=== PATIENT | male | born 1935 | race Caucasian/White ===

== ENCOUNTER → 2017-11-28 10:04 | Outpatient (CLI) | payer MEDICARE, OTHER, SELFPAY ==
[2017-11-28 13:33] LABS: Basophils Percent Auto 0.9 % (0-2); Eosinophils Percent Auto 2.9 % (2-4); Hemoglobin 12.7 g/dL (13.5-17.5); Lymphocytes Percent Auto 28.7 % (25-40); Mean Corpuscular HGB Conc 34.4 % (30-36); Mean Corpuscular Hemoglobin 38.4 PG (26-34); Mean Corpuscular Volume 111.6 fL (80-100); Monocytes Percent Auto 14.9 % (3-14); Neutrophils Absolute Auto 2800 /uL (3000-5900); Neutrophils Percent Auto 52.6 % (50-75); Platelet Count 270 X10^3/uL (150-400); Red Blood Cell Count 3.32 X10^6/uL (4.5-5.9); Red Cell Distribution Width 15.2 % (11.6-14.8); White Blood Cell Count 5.4 X10^3/uL (4.5-11.0)
[2017-11-28 13:35] LABS: Add Manual Diff / Slide Review SLIDE REVIEW; Prothrombin Time 10.9 SECONDS (10.1-12.7)
[2017-11-28 13:40] LABS: Alanine Aminotransferase 29 IU/L (21-72); Albumin 4.4 g/dL (3.5-5.0); Albumin Globulin Ratio 1.3 (1.0-2.8); Alkaline Phosphatase 87 U/L (38-126); Aspartate Aminotransferase 32 IU/L (17-59); BUN Creatinine Ratio 23.6 (6-22); Bilirubin Total 0.5 mg/dL (0.2-1.3); Calcium 9.8 mg/dL (8.4-10.2); Estimated Glomerular Filt Rate > 60.0 mL/min (>60); Globulin 3.4 g/dL (1.7-4.1); Glucose 100 mg/dL (80-110); HEMOLYSIS < 15 (0-50); Lipase 81 U/L (23-300); Potassium 4.4 mmol/L (3.4-5.1); Sodium 140 mmol/L (137-145); Total Protein 7.8 g/dL (6.3-8.2)
[2017-11-28 14:03] LABS: Macrocytosis 1+
== END ==
PROVIDERS: PCP Family Medicine; Visit Provider Family Medicine
DX: I10 Essential (primary) hypertension (principal); E78.5 Hyperlipidemia, unspecified; D53.9 Nutritional anemia, unspecified; J43.2 Centrilobular emphysema; R10.11 Right upper quadrant pain
CPT/HCPCS: 36415; 80053; 83690; 85025; 85610

== ENCOUNTER → 2018-10-15 08:14 | Outpatient (CLI) | payer MEDICARE, OTHER, SELFPAY ==
--- NOTE | 2018-10-15 09:26 | PM.TREADMILL ---
Cardiac Stress Test Report Referral & Results Date Patient Seen: 10/15/18 Requesting provider: Navya Rodriguez Indication: Chest pain Rest ECG: Unremarkable Procedure Note: Today following both written and verbal informed consent the patient was exercised according to a standard Damián protocol patient went for a total of 5 minutes 20 seconds achieving a maximum heart rate of 106 maximum systolic blood pressure of 160 to. This is approximately 7.0 METS. Exercise was terminated at this point because of severe dyspnea and ability the patient to continue. Patient was also given Cardiolite through a previously started Hep-Lock IV by the nuclear equipment research engineer approximately 1 minute prior to the cessation of exercise. Patient failed to meet heart rate targets. Blood pressure did rise but also somewhat blunted. No ST-T segment changes Occasional PAC and PVC Patient with severe dyspnea consistent with his diagnosis of COPD Functional aerobic impairment actually rated 0 on the sedentary scale Impression: No ECG evidence of ischemia in a patient with significant pulmonary disease Please see perfusion imaging as well Please note: Actual ECG tracings can be found in the PACS system.
--- NOTE | 2018-10-16 16:02 | DI.NM.S_ITS ---
DATE OF SERVICE: 10/15/2018 PROCEDURE: Exercise perfusion study. INDICATIONS: Chest pain, shortness of breath, underlying hypertension, hyperlipidemia, PAD. RADIOPHARMACEUTICAL: 24.7 mCi technetium-99m Myoview IV was injected at stress and 26.3 mCi technetium-99m Myoview IV was injected at rest. CARDIAC STRESS: Patient walked on Damián protocol for about 5 minutes 20 seconds and achieved peak heart rate of 106, which was 76% of target heart rate. He was unable to continue on treadmill. Had dyspnea. Achieved 7 METs of workload. Functional aerobic impairment +10%. Baseline s EKG revealed sinus rhythm. During stress, there was some nonspecific upsloping ST depression. Occasional PVCs and PACs seen. No significant sustained arrhythmias. RAW DATA: There is increased subdiaphragmatic activity. GATED STUDY: Resting LV ejection fraction 68% and stress LV ejection fraction 74% without any obvious wall motion abnormalities. Resting end-diastolic volume is 129 mL. No transient ischemic dilatation. TID ratio is 0.92. Lung/heart ratio is 0.34, which is within normal limits. MYOCARDIAL PERFUSION SCAN: Stress supine, resting supine, and stress prone images were compared to each other. Stress supine and resting supine images revealed moderate-sized moderately decreased perfusion of inferior wall, inferior apex which got significantly improved during prone images. However, prone images remain to have mildly decreased perfusion of inferior apex. I don't see any obvious reversible ischemia CONCLUSION: 1. No obvious reversible ischemia. 2. Diaphragmatic tissue attenuation artifact seen which got significantly improved during prone images. Prone images remain to have mildly decreased perfusion of inferior apex. Inferior wall and inferior apex are moving well. There is a possibility of persistent tissue attenuation artifact as well. During raw images, increased subdiaphragmatic activity seen near the inferior border and inferior apex. Hence, most likely we are dealing with tissue attenuation artifact. 3. Patient has poor exercise tolerance. Functional aerobic impairment +10%. Had significant shortness of breath. He has underlying chronic obstructive pulmonary disease (COPD). He achieved only 76% of target heart rate. 4. It is a submaximal exercise perfusion stress test. Clinical correlation is recommended. If clinical suspicion for coronary artery disease is high, repeat stress test either with pharmacological perfusion study or dobutamine stress echocardiogram. Pola Chambers - [facility]/nimco/ doc#: [id number]/job#: [id number] dd: 10/16/2018 12:36:00 dt: 10/16/2018 15:50:00 DICTATING MD/COPIES TO: Sonya Ennis MD COPIES MNE: SARIKA
== END ==
PROVIDERS: Family Provider Family Medicine; PCP Family Medicine; Visit Provider Family Medicine
DX: R07.9 Chest pain, unspecified (principal); R06.02 Shortness of breath; J44.9 Chronic obstructive pulmonary disease, unspecified; R06.00 Dyspnea, unspecified; I10 Essential (primary) hypertension
CPT/HCPCS: 78452; 93016; 93017; 93018; A9502

== ENCOUNTER → 2019-02-17 09:42 | Outpatient (CLI) | payer MEDICARE, OTHER, SELFPAY ==
--- NOTE | 2019-02-17 | DI.CT.S_ITS ---
PROCEDURE: CT MASTOID TEMPORAL INDICATIONS: CHOLESTEATOMA COMPARISON: [facility], CT, TEMPORAL/MASTOIDS W/O CONTRAST, 07/03/2017, 8:44. [facility], MR, STROKE PROTOCOL, 07/25/2012, 11:22. [facility], CT, SINUS SCREEN WO CONTRAST, 08/02/2012, 11:22. [facility], CT, HEAD WITHOUT CONTRAST, 04/04/2013, 17:51. TECHNIQUE: Noncontrast 0.6 mm thick direct axial and coronal sections acquired through each temporal bone separately. FINDINGS: Image quality: Excellent. RIGHT: External auditory canal: Canal has a normal appearance. Middle ear: The middle ear structures, including the ossicles and tympanic membrane, appear normal. No abnormal fluid or soft tissue density. Inner ear: Inner ear is normally formed and appears unremarkable. Facial nerve appears normal throughout is course. Mastoids: Mastoid air cells demonstrate at least moderate abnormal fluid. LEFT: External auditory canal: Canal has a normal appearance. Middle ear: Abnormal soft tissue density can be seen within the middle ear cavity, particularly medially. No definite osseous erosion is seen at this time. The left tympanic membrane is retracted. Inner ear: Inner ear is normally formed and appears unremarkable. Facial nerve appears normal throughout its course. Mastoids: Mastoid air cells demonstrate moderate abnormal fluid MISCELLANEOUS: Visualized surrounding bones appear unremarkable. Visualized intracranial structures, including the cerebellopontine angle cisterns, appear normal. IMPRESSION: Abnormal soft tissue density is seen involving the right middle ear cavity, which is consistent with the given history of a cholesteatoma. When compared to 2017, the amount of abnormal soft tissue material within the left middle ear cavity has progressed. Abnormal mastoid air cell fluid can be seen, left worse than right. Dictated by: Abdirahman Alvarenga M.D. on 02/17/2019 at 10:36 Approved by: Abdirahman Alvarenga M.D. on 02/17/2019 at 10:40
== END ==
PROVIDERS: Family Provider Family Medicine; PCP Family Medicine; Visit Provider Otolaryngology
DX: H71.91 Unspecified cholesteatoma, right ear (principal); H71.92 Unspecified cholesteatoma, left ear
CPT/HCPCS: 70480

== ENCOUNTER → 2019-06-25 10:15 | Outpatient (CLI) | payer MEDICARE, OTHER, SELFPAY ==
[2019-06-25 11:04] LABS: Add Manual Diff / Slide Review NO; Basophils Absolute Auto 100 /uL (0-100); Basophils Percent Auto 1.1 % (0-2); Eosinophils Absolute Auto 400 /uL (0-450); Eosinophils Percent Auto 5.9 % (2-4); Hemoglobin 12.2 g/dL (13.5-17.5); Lymphocytes Absolute Auto 2100 /uL (1100-4500); Lymphocytes Percent Auto 31.3 % (25-40); Mean Corpuscular HGB Conc 34.9 % (30-36); Mean Corpuscular Hemoglobin 39.2 PG (26-34); Mean Corpuscular Volume 112.3 fL (80-100); Monocytes Absolute Auto 900 /uL (0-900); Monocytes Percent Auto 13.6 % (3-14); Neutrophils Absolute Auto 3200 /uL (1500-7000); Neutrophils Percent Auto 48.1 % (50-75); Platelet Count 297 X10^3/uL (150-400); Red Blood Cell Count 3.11 X10^6/uL (4.5-5.9); Red Cell Distribution Width 15.1 % (11.6-14.8); White Blood Cell Count 6.6 X10^3/uL (4.5-11.0)
[2019-06-25 11:39] LABS: Alanine Aminotransferase 16 IU/L (<50); Albumin 4.2 g/dL (3.5-5.0); Albumin Globulin Ratio 1.4 (1.0-2.8); Alkaline Phosphatase 83 U/L (38-126); Aspartate Aminotransferase 30 IU/L (17-59); Bilirubin Total 0.7 mg/dL (0.2-1.3); Blood Urea Nitrogen 24 mg/dL (9-20); Calcium 10.1 mg/dL (8.4-10.2); Carbon Dioxide 32 mmol/L (22-32); Chloride 94 mmol/L (98-107); Cholesterol 238 mg/dL (140-199); Estimated Glomerular Filt Rate 58.1 mL/min (>60); Globulin 3.1 g/dL (1.7-4.1); Glucose 97 mg/dL (80-110); HDL Cholesterol 81 mg/dL (40-60); HEMOLYSIS < 15 (0-50); LDL Cholesterol Calculated 144 mg/dL (<100); Potassium 4.4 mmol/L (3.4-5.1); Sodium 133 mmol/L (137-145); Total Protein 7.3 g/dL (6.3-8.2); Triglycerides 64 mg/dL (35-150)
[2019-06-25 12:19] LABS: Macrocytosis 1+
== END ==
PROVIDERS: PCP Family Medicine; Visit Provider Family Medicine
DX: E78.5 Hyperlipidemia, unspecified (principal); D53.9 Nutritional anemia, unspecified; I10 Essential (primary) hypertension
CPT/HCPCS: 36415; 80053; 80061; 85025

== ENCOUNTER → 2019-09-02 16:17 | Outpatient (CLI) | payer MEDICARE, OTHER, SELFPAY | PROVIDERS: PCP Family Medicine; Visit Provider Physician Assistant | DX: S50.319A Abrasion of unspecified elbow, initial encounter (principal) | CPT/HCPCS: 87070; 87075; 87205 ==

== ENCOUNTER → 2019-09-08 13:07 | Outpatient (CLI) | payer MEDICARE, OTHER, SELFPAY ==
--- NOTE | 2019-09-08 13:11 | DI.RAD.S_ITS ---
PROCEDURE: XR CHEST 2V INDICATIONS: cough, shortness of breath, copd TECHNIQUE: 2 views of the chest were acquired. COMPARISON: [facility], , CHEST 2 VIEW, 07/14/2016, 13:41. FINDINGS: Surgical changes and devices: None. Lungs and pleura: There is mild increase in bibasilar scattered ill-defined patchy groundglass opacity since 07/14/16. No definite focal consolidation. No pleural effusions or pneumothorax. Lungs are hyperinflated in keeping with chronic obstructive physiology. Mediastinum: Mediastinal contours are normal. Heart size is normal. Bones and chest wall: No suspicious bony abnormalities. Soft tissues appear unremarkable. IMPRESSION: Interval progression in ill-defined widespread bi-basilar opacities, potentially reflecting early pulmonary edema, atypical or viral pneumonia, however this could be progressive fibrotic change and technically unclear in the absence of more recent prior studies. If there is persistent clinical diagnostic uncertainty, continued surveillance with short interval chest radiographs after treatment is recommended. Hyperinflated lungs in keeping with chronic obstructive physiology. Dictated by: Patrick Romano M.D. on 09/08/2019 at 14:08 Approved by: Patrick Romano M.D. on 09/08/2019 at 14:11
== END ==
PROVIDERS: PCP Family Medicine; Referring Provider Family Medicine; Visit Provider Family Medicine
DX: R05 Cough (principal); J43.2 Centrilobular emphysema; E78.5 Hyperlipidemia, unspecified; J96.00 Acute respiratory failure, unspecified whether with hypoxia or hypercapnia; I10 Essential (primary) hypertension; D53.9 Nutritional anemia, unspecified
CPT/HCPCS: 36415; 71046; 80053; 80061; 84145; 85025

== ENCOUNTER → 2019-09-08 13:43 | Outpatient (CLI) | payer MEDICARE, OTHER, SELFPAY ==
[2019-09-08 15:18] LABS: Add Manual Diff / Slide Review NO; Basophils Absolute Auto 0 /uL (0-100); Basophils Percent Auto 0.2 % (0-2); Eosinophils Absolute Auto 0 /uL (0-450); Eosinophils Percent Auto 0.1 % (2-4); Hematocrit 31.4 % (41-53); Hemoglobin 10.6 g/dL (13.5-17.5); Lymphocytes Absolute Auto 1500 /uL (1100-4500); Lymphocytes Percent Auto 8.7 % (25-40); Mean Corpuscular HGB Conc 33.9 % (30-36); Mean Corpuscular Hemoglobin 38.8 PG (26-34); Mean Corpuscular Volume 114.5 fL (80-100); Monocytes Absolute Auto 2600 /uL (0-900); Neutrophils Absolute Auto 13200 /uL (1500-7000); Platelet Count 296 X10^3/uL (150-400); Red Blood Cell Count 2.74 X10^6/uL (4.5-5.9); Red Cell Distribution Width 14.9 % (11.6-14.8); White Blood Cell Count 17.4 X10^3/uL (4.5-11.0)
[2019-09-08 15:33] LABS: Alanine Aminotransferase 28 IU/L (<50); Albumin 4.3 g/dL (3.5-5.0); Albumin Globulin Ratio 1.2 (1.0-2.8); Alkaline Phosphatase 81 U/L (38-126); Aspartate Aminotransferase 54 IU/L (17-59); BUN Creatinine Ratio 21.3 (6-22); Bilirubin Total 0.6 mg/dL (0.2-1.3); Blood Urea Nitrogen 34 mg/dL (9-20); Calcium 9.8 mg/dL (8.4-10.2); Carbon Dioxide 33 mmol/L (22-32); Chloride 91 mmol/L (98-107); Cholesterol 188 mg/dL (140-199); Estimated Glomerular Filt Rate 41.7 mL/min (>60); Globulin 3.7 g/dL (1.7-4.1); Glucose 127 mg/dL (80-110); HDL Cholesterol 47 mg/dL (40-60); HEMOLYSIS < 15 (0-50); LDL Cholesterol Calculated 119 mg/dL (<100); Potassium 3.5 mmol/L (3.4-5.1); Sodium 134 mmol/L (137-145); Triglycerides 108 mg/dL (35-150)
[2019-09-08 15:39] LABS: Macrocytosis 2+
[2019-09-08 16:07] LABS: Procalcitonin 0.42 ng/mL (<0.5)
== END ==
PROVIDERS: PCP Family Medicine; Referring Provider Family Medicine; Visit Provider Family Medicine
DX: J96.00 Acute respiratory failure, unspecified whether with hypoxia or hypercapnia (principal); J43.2 Centrilobular emphysema; E78.5 Hyperlipidemia, unspecified; D53.9 Nutritional anemia, unspecified; I10 Essential (primary) hypertension
CPT/HCPCS: 36415; 80053; 80061; 84145; 85025

== ENCOUNTER 2019-09-10 14:55 | Inpatient (IN) | payer MEDICARE, OTHER, SELFPAY ==
[2019-09-10 15:14] VITALS: BMI 25.6
--- NOTE | 2019-09-10 15:25 | PM.HP.1 ---
History of Present Illness History of Present Illness Date Patient Seen: 09/10/19 Time Patient Seen: 15:25 Chief complaint: COPD Exacerbation and Pneumonia Narrative: Patient is an 83 yo male with long standing tobacco use and COPD who presented to clinic two days ago with worsening respiratory status. Attempt was made to treat him outpatient with steroids and continue keflex which he was taking to a skin infection. His symptoms did not improve and he followed up in clinic today with worsening oxygen saturations and cough. His cough is productive of green sputum. His oxygen saturation has been in the low 80's to 90's at home and goes down with any exertion. says he has been somnolent at home. Coughed all night and didn't sleep last night. He hasn't had a fever. He did have an accident a week ago Sunday. A ladder gave way and he fell scraping up his left elbow and arm. He was seen at the [id number] and started on keflex. He fell into [employer] water. When I saw him 2 days ago this lesion was healing well. He is not concerned about this injury. It is not painful. He did not hit his head when he fell. He does drink regularly with 4 beers or so per day. (nurse) says that he has not suffered withdrawal if he didn't drink for a a few days and he hasn't had DT's or seizure when he's been hospitalized in the past. Patient History Medical History (Updated 09/02/19 @ 18:58 by Yumiko Constantino PA-C) Benign prostatic hyperplasia (Chronic 01/29/12) Bradycardia (Chronic) Centrilobular emphysema (Chronic 12/13/16) Cholesteatoma (Chronic 09/10/12) COPD (chronic obstructive pulmonary disease) (Chronic) Hemorrhagic cerebrovascular accident (CVA) (Inactive ~2006) Hyperlipidemia (Chronic) Hypertension (Chronic) Macrocytic anemia (Chronic 07/06/16) Mild alcohol abuse (Chronic 03/26/15) Peripheral vascular disease of foot (Chronic 05/31/17) Sinusitis (Chronic) Substance abuse (Chronic) Syncope (Chronic) Tobacco use disorder, continuous (Chronic 09/10/12) Transient cerebral ischemia (Resolved 04/23/12) Traumatic compression fracture of seventh thoracic vertebra, sequela (Chronic 10/09/16) Tubular adenoma (Chronic) Surgical History (Updated 11/13/17 @ 06:19 by Conversion Provider) History of carpal tunnel repair (03/02/15) History of cataract removal with insertion of prosthetic lens (02/16/15) History of cataract removal with insertion of prosthetic lens (03/09/15) History of tonsillectomy Status post appendectomy Status post colonoscopy (10/06/09) Status post repair of hydrocele (05/22/11) Family & Social History Family History (Updated 03/26/15 @ 00:00 by Conversion Provider) Brother Lung cancer Father Lung cancer Mother No problems noted. Tobacco & Substance use: Smoking Status Current every day smoker Meds Home Medications and Allergies Home Medications Medication Instructions Recorded Confirmed Type cyanocobalamin (vitamin B-12) #0 07/19/17 09/10/19 History [Vitamin B-12] vit-iron fum-folic ac #0 07/19/17 09/10/19 History [Mynatal] magnesium oxide PO 06/03/18 09/10/19 History hydrochlorothiazide 25 mg tablet 25 mg PO QDAY #90 tab 04/21/19 09/10/19 Rx albuterol sulfate 90 mcg/actuation 2 puff INHALATION Q4H PRN #1 06/27/19 09/10/19 Rx aerosol inhaler inhalation umeclidinium 62.5 mcg/actuation 62.5 mcg INHALATION QDAY #1 inh 07/23/19 09/10/19 Rx blister powder for inhalation fluticasone furoate 200 1 inhalation INHALATION DAILY #60 07/25/19 09/10/19 Rx mcg-vilanterol 25 mcg/dose each inhalation powder aspirin 81 mg tablet,delayed 81 mg PO DAILY 08/09/19 09/10/19 History release amlodipine 5 mg tablet 5 mg PO QDAY #90 tab 08/11/19 09/10/19 Rx cephalexin 500 mg capsule 500 mg PO BID 10 Days #20 cap 09/02/19 09/10/19 Rx mupirocin 2 % topical ointment 1 applic TOP BID #30 gram 09/02/19 09/10/19 Rx prednisone 20 mg tablet 40 mg PO DAILY 5 Days #10 tab 09/08/19 09/10/19 Rx Allergies Allergy/AdvReac Type Severity Reaction Status Date / Time No Known Drug Allergies Allergy Unknown Verified 09/10/19 13:26 Review of Systems Constitutional Constitutional: Denies fever(s) and Reports lack of energy Eyes Eyes: Reports irritation ENT Ears, Nose, Mouth, and Throat: Yes abnormal hearing, No nasal congestion, No post nasal drip and No sore throat Cardiovascular Cardiovascular: Denies chest pain, Denies fast heart rate, Denies irregular heart rhythm, Denies leg swelling, Reports shortness of breath and Reports shortness of breath with activity Respiratory Respiratory: Reports change in phlegm color, Reports chest congestion, Reports cough, Denies hemoptysis, Reports excessive phlegm production, Reports dyspnea, Reports dyspnea on exertion and Denies wheezing Gastrointestinal Gastrointestinal: Denies abdominal pain Neurologic Neurologic: Reports abnormal hearing Allergic/Immunologic Allergic/Immunologic: Denies wheezing Exam Narrative Exam Narrative: GEN: Well developed, well nourished, elderly male, acute respiratory distress HEART: regular rate and rhythm, 2/6 murmur best heard at LLSB LUNGS: increased respiratory effort, pursed lip breathing, diminished in posterior bases ABD: BS+, soft, nondistended, nontender EXT: warm and well perfused, negative Kaia's, negative Lisker Objective Labs Result Diagrams: 09/10/19 16:05 09/10/19 16:05 Assessment & Plan Assessment & Plan narrative: 83 yo male with acute hypoxic/hypercapneic respiratory failure from likely pneumonia and COPD exacerbation failed outpatient treatment. 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 - fluids, monitor Tobacco use disorder - nicotine patch Hypertension - continue home amlodipine Alcohol use disorder - will monitor, hasn't needed treatment in the past - start with chlordiapoxide Code status: DNR DVT prophylaxis: lovenox Patient requires close monitoring of respiratory status and treatment having failed outpatient treatment and will need at least 2 midnights of inpatient care.
[2019-09-10 15:37] VITALS: BP 146/70; PULSE 66; RESP 24; TEMP 37.6; O2SAT 93
[2019-09-10 16:20] LABS: Fractionated Inspired Oxygen 25; HCO3 ABG 35 mmol/L (22-26); Oxygen Saturation ABG 90 % (95-100); PCO2 ABG 51.1 mmHg (35-45); PO2 ABG 58 mmHg (80-100); TCO2 ABG 36 mmol/L (21-31); pH ABG 7.44 (7.35-7.45)
[2019-09-10 16:22] LABS: Hematocrit 31.3 % (41-53); Hemoglobin 10.5 g/dL (13.5-17.5); Mean Corpuscular HGB Conc 33.5 % (30-36); Mean Corpuscular Hemoglobin 38.5 PG (26-34); Mean Corpuscular Volume 114.9 fL (80-100); Platelet Count 358 X10^3/uL (150-400); Red Blood Cell Count 2.72 X10^6/uL (4.5-5.9); White Blood Cell Count 25.1 X10^3/uL (4.5-11.0)
[2019-09-10 16:24] LABS: Add Manual Diff / Slide Review YES
[2019-09-10 16:27] LABS: HEMOLYSIS < 15 (0-50)
[2019-09-10 16:32] LABS: D Dimer 630 ng/mL (<230)
[2019-09-10 16:36] LABS: Alanine Aminotransferase 57 IU/L (<50); Albumin 4.1 g/dL (3.5-5.0); Albumin Globulin Ratio 1.1 (1.0-2.8); Alkaline Phosphatase 91 U/L (38-126); Aspartate Aminotransferase 66 IU/L (17-59); Bilirubin Total 0.4 mg/dL (0.2-1.3); Blood Urea Nitrogen 63 mg/dL (9-20); C-Reactive Protein Quant 8.9 mg/dL (<1.0); Calcium 10.2 mg/dL (8.4-10.2); Carbon Dioxide 33 mmol/L (22-32); Chloride 94 mmol/L (98-107); Estimated Glomerular Filt Rate 44.9 mL/min (>60); Globulin 3.6 g/dL (1.7-4.1); Glucose 149 mg/dL (80-110); Potassium 3.4 mmol/L (3.4-5.1); Sodium 138 mmol/L (137-145); Total Protein 7.7 g/dL (6.3-8.2)
[2019-09-10 16:42] LABS: Macrocytosis 2+; Neutrophils Absolute Manual 21586 /uL (3000-5900); Total Cells Counted 100
[2019-09-10 16:48] LABS: NT-proBNP (BNP-Adult 18+) 2110 pg/mL (<450)
[2019-09-10] MEDS: CEFTRIAXONE 1 GM/50 ML FROZ.PIGGY IV (16:51)
[2019-09-10] MEDS: SODIUM CHLORIDE 0.9% 1,000 ML 125 ML IV ×2 (16:51→21:14)
--- NOTE | 2019-09-10 16:54 | DI.ECHO.S_ITS ---
Only +---------+ Hospital +---------+ : : [address] : : : : [id number] : : : : Phone: [phone]+ Echocardiogram Report + + :Name: VINCE MOSLEY Study Date: 09/11/2019 Height: 70 in : :[facility] Weight: 178 lb : : Gender: Male BSA: 2.0 m2 : :: 1935 Age: 83 yrs BP: 156/74 mmHg: :Reason For Study: Heart failure, shortness of breath : :Ordering Physician: Kody : :Hospitalist Performed By: Christine Mcghee : :Referring: AMBROSIO GALLARDO : + + Interpretation Summary The left ventricle is normal in size and wall thickness. The ejection fraction is estimated to be 65-70%. There has been no significant change since the previous study. Diastolic parameters suggest probable normal left ventricular diastolic function and normal filling pressures. The right ventricle is normal in size and function. Pulmonary artery pressures cannot be estimated because of the lack of a measurable TR jet velocity but the IVC suggests a CVP of around 8 mmHg. The left atrium is moderately dilated. The right atrium is normal in size. There is no significant valvular heart disease. The aortic root is normal size. Procedure: A two-dimensional transthoracic echocardiogram with color flow and Doppler was performed. Images from the parasternal window were difficult to obtain and are suboptimal in quality. The study quality was technically adequate. The patient was in normal sinus rhythm during the exam. The patient had occasional PACs during the exam. Left Ventricle: The left ventricle is normal in size and wall thickness. The ejection fraction is estimated to be 65-70%. There has been no significant change since the previous study. Diastolic parameters suggest probable normal left ventricular diastolic function and normal filling pressures. Right Ventricle: The right ventricle is normal in size and function. Atria: The left atrium is moderately dilated. The right atrium is normal in size. There is no Doppler evidence for an interatrial shunt. Mitral Valve: The mitral valve is normal in structure and function. There is no mitral regurgitation noted. Aortic Valve: The aortic valve is not well visualized. There is mild aortic stenosis. No aortic regurgitation is present. Tricuspid Valve: The tricuspid valve is normal in structure and function. Pulmonary artery pressures cannot be estimated because of the lack of a measurable TR jet velocity but the IVC suggests a CVP of around 8 mmHg. There is a trace or physiologic amount of tricuspid regurgitation. Pulmonic Valve: The pulmonic valve is not well visualized. There is a trace or physiologic amount of pulmonic regurgitation. There is no significant valvular heart disease. Great Vessels: The aortic root is normal size. The ascending aorta could not be visualized. The IVC is of normal diameter and collapses less than 50% with a sniff. This suggests a right atrial pressure of 8 mm Hg. Pericardium/ Pleura There is no pericardial effusion. There is no pleural effusion. MMode/2D Measurements & Calculations LVIDd: 4.9 cm LVOT diam: 2.4 cm LVIDs: 3.7 cm Ao root diam: 3.7 cm FS: 25.4 % IVSd: 0.75 cm LVPWd: 0.74 cm LV [place]. diameter/BSA (cm/m^2): 2.5 LV sys. diameter/BSA (cm/m^2): 1.9 LA A2 area: 28.2 cm2 RA long axis: 5.0 cm LA A4 area: 17.4 cm2 RA area: 14.9 cm2 LA length (vol): 4.7 cm RA vol: 37.3 ml LA vol: 88.3 ml RA : 18.8 ml/m2 LA vol index: 44.4 ml/m2 IVC diam: 2.4 cm RVD1 (basal): 3.0 cm TAPSE: 3.3 cm Doppler Measurements & Calculations Ao V2 max: 269.4 cm/sec LVOT Max Rufus: 142.8 cm/sec Ao V2 mean: 172.6 cm/sec LV V1 max P.2 mmHg Ao max P.4 mmHg LV V1 VTI: 32.1 cm Ao mean P.7 mmHg PARRISH(I,D): 2.5 cm2 Ao V2 VTI: 60.5 cm PARRISH(V,D): 2.5 cm2 sev ratio: 0.53 PARRISH indexed to BSA (cm^2/m^2): 1.3 MV E max rufus: 127.6 cm/sec PA V2 max: 99.0 cm/sec MV A max rufus: 95.3 cm/sec PA V2 mean: 72.8 cm/sec MV E/A: 1.3 PA mean P.3 mmHg Med Peak E' Rufus: 9.1 cm/sec PA Accel Time: 0.06 sec E/E' med: 14.1 Lat Peak E' Rufus: 11.4 cm/sec E/E' lat: 11.2 E/e' average: 12.7 MV dec time: 0.21 sec MV P1/2t: 62.4 msec MV P1/2t max rufus: 127.5 cm/sec SV(LVOT): 151.2 ml MVA(P12t): 3.5 cm2 Reading Physician:01:46 PM
[2019-09-10] MEDS: AZITHROMYCIN 250 MG TABLET 500 MG PO (17:35)
--- NOTE | 2019-09-10 17:42 | DI.CT.S_ITS ---
PROCEDURE: CT CHEST WO CON INDICATIONS: shortness of breath, tachycardia, new heart failure TECHNIQUE: Noncontrast 5 mm thick sections acquired from the pulmonary apices to the posterior costophrenic angles. 1 mm lung window, 5 mm thick coronal and sagittal and 7 mm axial MIP reformats were then acquired. For radiation dose reduction, the following was used: automated exposure control, adjustment of mA and/or kV according to patient size. COMPARISON: [facility], CT, THORAX WITHOUT CONTRAST, 07/25/2017, 10:13. FINDINGS: Image quality: Excellent. Lungs and pleura: There is severe centrilobular emphysema with apical predominance. Apical scar is redemonstrated within the posterior right apex. There is a new 2.0 x 0.9 cm lobulated mass within the anteromedial aspect of the right apex when compared with the prior CT dated 07/25/17 (series 3/image 29). Trace, scattered tree in bud pulmonary radiopacities are present within the peripheral aspects of the right upper lobe, and lingula, and right lower lobe. These air space opacities are most confluent within the right lower lobe. An 8 mm diameter cavitary lesion is associated with these air space opacities in the right middle lobe (series 3/image 180). Mediastinum: Heart size is normal. No pericardial effusion. No mediastinal adenopathy by size criteria. Thoracic aorta and central pulmonary arteries are normal in size. Scattered atheromatous calcifications are present within the aortic arch. Esophagus is normal in caliber. No hiatal hernia. Bones and chest wall: No suspicious bony lesions. No vertebral body compression fractures. No axillary or supraclavicular adenopathy by size criteria. Thyroid gland is unremarkable. Abdomen: There is questionable dilatation of the left upper pole renal collecting system versus pararenal cysts which are incompletely characterized on this limited view. There is likely a left upper pole cortical renal cyst as well which is incompletely characterized. 18Visualized upper abdominal solid organs and bowel loops appear normal in the absence of contrast. IMPRESSION: 1. Delayed mass within the right apex as described above. This finding may represent a mucus filled airways; however pulmonary neoplasm cannot be excluded. Given the apical location and severe centrilobular emphysema, this lesion is likely not amenable to percutaneous biopsy. If further characterization is warranted, PET CT could be used to evaluate for increased metabolic activity. 2. Scattered peripheral foci of tree in bud pulmonary radiopacities most confluent within the right lower lobe. These findings suggest endobronchial spread of infection. This is a nonspecific finding which may also be associated with viral pneumonia. Of note, there is a solitary 8mm cavitary lesion associated with these air space opacities within the right middle lobe. Dictated by: Michelle Galindo M.D. on 09/10/2019 at 19:13 Approved by: Michelle Galindo M.D. on 09/10/2019 at 19:20
[2019-09-10 18:12] LABS: Influenza A - CEPHEID Flu A NEGATIVE (NEGATIVE); Influenza B - CEPHEID Flu B NEGATIVE (NEGATIVE)
[2019-09-10 18:27] LABS: Bacteria Urine None Seen; WBC Urine None Seen (0-5/HPF)
[2019-09-10 18:28] LABS: Appearance Urine UA CLEAR; Bilirubin Urine UA NEGATIVE (NEGATIVE); Color Urine UA YELLOW; Glucose Urine UA NEGATIVE (Negative); Ketones Urine UA NEGATIVE (NEGATIVE); Leukocyte Esterase Urine UA NEGATIVE (NEGATIVE); Nitrite Urine UA NEGATIVE (Negative); Occult Blood Urine UA 1+ (Negative); Protein Urine UA TRACE (Negative); Specific Gravity Urine UA 1.015 (1.000-1.035); Urobilinogen Urine UA 0.2 E.U./dL (0.2)
[2019-09-10 18:35] LABS: Culture Indicated Urine Cult Not Indicated; Hyaline Casts Urine 1-5/LPF; RBC Urine 0-1/HPF (0-5/HPF)
[2019-09-10] MEDS: methylPREDNISolone 125 MG/2 ML VIAL 60 MG IV (18:52)
[2019-09-10] MEDS: NICOTINE 21 MG PATCH TOP (18:53)
[2019-09-10] MEDS: ALBUTEROL/IPRATROPIUM 3 ML AMPUL INH (19:21)
[2019-09-10 19:23] VITALS: BP 173/92; PULSE 78; RESP 23; TEMP 37.3; O2SAT 97
[2019-09-10 19:27] VITALS: PULSE 75; RESP 20; O2SAT 98
[2019-09-10] MEDS: guaiFENesin ER 600 MG TAB PO (21:14)
[2019-09-10] MEDS: AMLODIPINE 5 MG TABLET PO (21:21)
[2019-09-10 21:39] LABS: pH ABG 7.42 (7.35-7.45)
[2019-09-10 21:40] LABS: Fractionated Inspired Oxygen 28; HCO3 ABG 34 mmol/L (22-26); Oxygen Saturation ABG 94 % (95-100); PCO2 ABG 52.5 mmHg (35-45); PO2 ABG 72 mmHg (80-100); TCO2 ABG 36 mmol/L (21-31)
[2019-09-10] MEDS: FLUTICASONE/SALMETEROL 250/50 60 PUFF DISKUS INH (21:46)
[2019-09-10 21:49] VITALS: O2SAT 94
[2019-09-11] VITALS (10 sets, daily range): BP systolic 145–167; BP diastolic 64–76; PULSE 58–81; RESP 18–31; TEMP 36.7–37.3; O2SAT 91–98
--- NOTE | 2019-09-11 00:41 | PC.NURSE ---
2315 - Pt set up to edge of bed to void via urinal. Pt continues with purse-lip breathing and SOB with minimal exertion. Sats remain 94% on 2L with activity. Pt denies pain. Denies anxiety. Assist to position for comfort. Call light in reach. Bed alarm on. 1840 - Pt to room from CT scan. Previously in room 213. Pt able to stand and pivot transfer to bed. Pursed-lip breathing, even at rest. O2 2l, NC. Placed on ETCO2 without successful readings. Pursed lip breathing blowing below cannula, moving cannula down removes from Nares. aware, returned to regular NC. Pt with occasional confused statements. Reports that at home, while not wearing O2, he was hallucinating. Pt relates to work of breathing and inability to sleep. Oriented to room and routine. Educated to safety and call light use. Call light in reach. Bed alarm on.
[2019-09-11] MEDS: methylPREDNISolone 125 MG/2 ML VIAL 60 MG IV ×5 (00:59→23:39)
[2019-09-11 05:33] LABS: HEMOLYSIS < 15 (0-50)
[2019-09-11] MEDS: SODIUM CHLORIDE 0.9% 1,000 ML 125 ML IV (05:39)
[2019-09-11 05:41] LABS: BUN Creatinine Ratio 38.5 (6-22); Blood Urea Nitrogen 50 mg/dL (9-20); Calcium 9.5 mg/dL (8.4-10.2); Carbon Dioxide 34 mmol/L (22-32); Chloride 96 mmol/L (98-107); Glucose 183 mg/dL (80-110); Potassium 3.6 mmol/L (3.4-5.1); Sodium 138 mmol/L (137-145)
[2019-09-11 05:44] LABS: Hematocrit 31.8 % (41-53); Hemoglobin 10.6 g/dL (13.5-17.5); Mean Corpuscular HGB Conc 33.3 % (30-36); Mean Corpuscular Hemoglobin 38.1 PG (26-34); Mean Corpuscular Volume 114.3 fL (80-100); Platelet Count 330 X10^3/uL (150-400); Red Blood Cell Count 2.78 X10^6/uL (4.5-5.9); Red Cell Distribution Width 14.5 % (11.6-14.8); White Blood Cell Count 15.9 X10^3/uL (4.5-11.0)
[2019-09-11 05:46] LABS: Add Manual Diff / Slide Review YES
[2019-09-11 06:05] LABS: NT-proBNP (BNP-Adult 18+) 1350 pg/mL (<450)
[2019-09-11 06:08] LABS: Macrocytosis 2+; Neutrophils Absolute Manual 14628 /uL (3000-5900); Total Cells Counted 100
[2019-09-11] MEDS: FLUTICASONE/SALMETEROL 250/50 60 PUFF DISKUS INH ×2 (08:10→19:28)
[2019-09-11] MEDS: ALBUTEROL/IPRATROPIUM 3 ML AMPUL INH ×3 (08:10→19:28)
--- NOTE | 2019-09-11 09:42 | PM.PN.1 ---
Subjective Subjective Date Patient Seen: 09/11/19 Time Patient Seen: 09:55 Interval history: Patient is sitting up eating breakfast at bedside this morning. He is hungry today. However he desats with talking and eating. Continues with pursed lip breathing. Many questions about what might be causing this besides his normal COPD. Has acapella device at bedside but not using. No other complaints besides his cough and shortness of breath. Patient thinks there might have been a possibility to have aspirated the septic water when he fell. Exam Vital Signs (past 8 hours): - 09/11/19 03:32 09/11/19 08:15 Temperature 98.1 F 98.3 F Pulse Rate 58 L 71 Respiratory Rate 29 H 25 H Blood Pressure 167/76 H 156/72 H Pulse Oximetry 96 96 Oxygen Delivery Method Nasal Cannula Oxygen Flow Rate 2 Narrative Exam Narrative: General: Well-developed, well-nourished, male, no acute distress. Heart: Regular rate and rhythm Lungs: diffuse expiratory wheezes and few rhonchi, better air movement today Extremities: Warm and well perfused, no edema Objective Labs Result Diagrams: 09/11/19 04:35 09/11/19 04:35 Labs: Laboratory Results - last 24 hr 09/10/19 09/10/19 09/10/19 16:05 16:05 16:05 WBC 25.1 H RBC 2.72 L Hgb 10.5 L Hct 31.3 L MCV 114.9 H MCH 38.5 H MCHC 33.5 RDW 15.0 H Plt Count 358 Neut % (Auto) Not Reportable Lymph % (Auto) Not Reportable [place] % (Auto) Not Reportable Eos % (Auto) Not Reportable Baso % (Auto) Not Reportable Lymph # (Auto) Not Reportable [place] # (Auto) Not Reportable Baso # (Auto) Not Reportable Total Counted 100 Seg Neutrophils % 55.0 Band Neutrophils % 31.0 H Lymphocytes % (Manual) 4.0 L Monocytes % (Manual) 7.0 Eosinophils % (Manual) 1.0 L Metamyelocytes % 2.0 H Neutrophils # (Manual) 88067 H RBC Morphology See below Macrocytosis 2+ H D-Dimer 630 H ABG pH ABG pCO2 ABG pO2 ABG HCO3 ABG Total CO2 ABG O2 Saturation ABG Base Excess FiO2 Sodium 138 Potassium 3.4 Chloride 94 L Carbon Dioxide 33 H BUN 63 H Creatinine 1.50 H Estimated GFR 44.9 L BUN/Creatinine Ratio 42.0 H Glucose 149 H Calcium 10.2 Total Bilirubin 0.4 AST 66 H ALT 57 H Alkaline Phosphatase 91 C-Reactive Protein 8.9 H NT-Pro-B Natriuret Pep 2110 H Total Protein 7.7 Albumin 4.1 Globulin 3.6 Albumin/Globulin Ratio 1.1 Urine Color Urine Appearance Urine pH Ur Specific [place] Urine Protein Urine Glucose (UA) Urine Ketones Urine Occult Blood Urine Nitrate Urine Bilirubin Urine Urobilinogen Ur Leukocyte Esterase Urine RBC Urine WBC Urine Bacteria Hyaline Casts Ur Culture Indicated? Nasal Screen MRSA (PCR) Influenza A (RT-PCR) Influenza B (RT-PCR) 09/10/19 09/10/19 09/10/19 16:08 17:30 18:20 WBC RBC Hgb Hct MCV MCH MCHC RDW Plt Count Neut % (Auto) Lymph % (Auto) [place] % (Auto) Eos % (Auto) Baso % (Auto) Lymph # (Auto) [place] # (Auto) Baso # (Auto) Total Counted Seg Neutrophils % Band Neutrophils % Lymphocytes % (Manual) Monocytes % (Manual) Eosinophils % (Manual) Metamyelocytes % Neutrophils # (Manual) RBC Morphology Macrocytosis D-Dimer ABG pH 7.44 ABG pCO2 51.1 H ABG pO2 58 L ABG HCO3 35 H ABG Total CO2 36 H ABG O2 Saturation 90 L ABG Base Excess 10.0 H FiO2 25 Sodium Potassium Chloride Carbon Dioxide BUN Creatinine Estimated GFR BUN/Creatinine Ratio Glucose Calcium Total Bilirubin AST ALT Alkaline Phosphatase C-Reactive Protein NT-Pro-B Natriuret Pep Total Protein Albumin Globulin Albumin/Globulin Ratio Urine Color Yellow Urine Appearance Clear Urine pH 6.0 Ur Specific [place] 1.015 Urine Protein Trace H Urine Glucose (UA) Negative Urine Ketones Negative Urine Occult Blood 1+ H Urine Nitrate Negative Urine Bilirubin Negative Urine Urobilinogen 0.2 Ur Leukocyte Esterase Negative Urine RBC 0-1/hpf Urine WBC None seen Urine Bacteria None seen Hyaline Casts 1-5/lpf Ur Culture Indicated? Cult not indicated Nasal Screen MRSA (PCR) Influenza A (RT-PCR) Flu a negative Influenza B (RT-PCR) Flu b negative 09/10/19 09/10/19 09/11/19 18:40 21:06 04:35 WBC 15.9 H RBC 2.78 L Hgb 10.6 L Hct 31.8 L MCV 114.3 H MCH 38.1 H MCHC 33.3 RDW 14.5 Plt Count 330 Neut % (Auto) Not Reportable Lymph % (Auto) Not Reportable [place] % (Auto) Not Reportable Eos % (Auto) Not Reportable Baso % (Auto) Not Reportable Lymph # (Auto) Not Reportable [place] # (Auto) Not Reportable Baso # (Auto) Not Reportable Total Counted 100 Seg Neutrophils % 81.0 H Band Neutrophils % 11.0 H Lymphocytes % (Manual) 3.0 L Monocytes % (Manual) 4.0 Eosinophils % (Manual) Metamyelocytes % 1.0 H Neutrophils # (Manual) 36503 H RBC Morphology See below Macrocytosis 2+ H D-Dimer ABG pH 7.42 ABG pCO2 52.5 H ABG pO2 72 L ABG HCO3 34 H ABG Total CO2 36 H ABG O2 Saturation 94 L ABG Base Excess 10.0 H FiO2 28 Sodium Potassium Chloride Carbon Dioxide BUN Creatinine Estimated GFR BUN/Creatinine Ratio Glucose Calcium Total Bilirubin AST ALT Alkaline Phosphatase C-Reactive Protein NT-Pro-B Natriuret Pep Total Protein Albumin Globulin Albumin/Globulin Ratio Urine Color Urine Appearance Urine pH Ur Specific [place] Urine Protein Urine Glucose (UA) Urine Ketones Urine Occult Blood Urine Nitrate Urine Bilirubin Urine Urobilinogen Ur Leukocyte Esterase Urine RBC Urine WBC Urine Bacteria Hyaline Casts Ur Culture Indicated? Nasal Screen MRSA (PCR) Negative for mrsa Influenza A (RT-PCR) Influenza B (RT-PCR) 09/11/19 04:35 WBC RBC Hgb Hct MCV MCH MCHC RDW Plt Count Neut % (Auto) Lymph % (Auto) [place] % (Auto) Eos % (Auto) Baso % (Auto) Lymph # (Auto) [place] # (Auto) Baso # (Auto) Total Counted Seg Neutrophils % Band Neutrophils % Lymphocytes % (Manual) Monocytes % (Manual) Eosinophils % (Manual) Metamyelocytes % Neutrophils # (Manual) RBC Morphology Macrocytosis D-Dimer ABG pH ABG pCO2 ABG pO2 ABG HCO3 ABG Total CO2 ABG O2 Saturation ABG Base Excess FiO2 Sodium 138 Potassium 3.6 Chloride 96 L Carbon Dioxide 34 H BUN 50 H Creatinine 1.30 H Estimated GFR 53.0 L BUN/Creatinine Ratio 38.5 H Glucose 183 H Calcium 9.5 Total Bilirubin AST ALT Alkaline Phosphatase C-Reactive Protein NT-Pro-B Natriuret Pep 1350 H Total Protein Albumin Globulin Albumin/Globulin Ratio Urine Color Urine Appearance Urine pH Ur Specific [place] Urine Protein Urine Glucose (UA) Urine Ketones Urine Occult Blood Urine Nitrate Urine Bilirubin Urine Urobilinogen Ur Leukocyte Esterase Urine RBC Urine WBC Urine Bacteria Hyaline Casts Ur Culture Indicated? Nasal Screen MRSA (PCR) Influenza A (RT-PCR) Influenza B (RT-PCR) Assessment & Plan Assessment & Plan narrative: 83 yo male with acute hypoxic/hypercapneic respiratory failure from likely pneumonia with bronchiectasis and COPD exacerbation failed outpatient treatment. Currently responding to treatment for community acquired pneumonia with ceftriaxone and azithromycin. Will continue this regimen unless sputum culture says otherwise. - steroids - ceftriaxone/azithromycin - nebs - supplemental oxygen, high flow nasal canula to help relieve co2 retention and assist with work of breathing Heart failure, likely secondary to pulmonary disease, BNP improved today - echocardiogram is pending Acute kidney injury, dehydration. Creatinine improving, BUN increasing. - continue fluids, monitor Tobacco use disorder - nicotine patch Hypertension - continue home amlodipine Anemia, macrocytic chronic disease. stable. - monitor. continue PNV. Alcohol use disorder - will monitor, hasn't needed treatment in the past - start with chlordiapoxide Code status: DNR DVT prophylaxis: lovenox Patient requires close monitoring of respiratory status and treatment having failed outpatient treatment and will need at least another 48-72 hours of inpatient care. Of note, 35 minutes was spent on the floor reviewing patient's record both pre-hospitalization and admission record and hospitalization. Discussing his case with his nurse as well as examining interviewing patient and his spouse and discussing plan of care in the room.
[2019-09-11] MEDS: ENOXAPARIN 40 MG/0.4 ML SYRINGE SUBCUT (10:48)
[2019-09-11] MEDS: AMLODIPINE 5 MG TABLET PO (10:49)
[2019-09-11] MEDS: MULTIVITAMIN 1 TABLET 1 TAB PO (10:49)
[2019-09-11] MEDS: AZITHROMYCIN 250 MG TABLET 500 MG PO (10:52)
--- NOTE | 2019-09-11 14:33 | PC.NURSE ---
Assumed care of Pt 0330, Audible, productive cough noted from hallway. Spo2 2L NC with coarse rhonchi and exp wheeze noted. Rt folowing with breathing treatments, PRN. Pt is [place] and impulsive at times. Removing O2 throughout shift, I dont think I need it Spo2 mid 70's on RA. Continues with wheeze/rhonchi. Bandages to L FA loose and have old drainage noted. Pt agreeable to photos and Dressing change this shift. At times, Pt mentation does seem to wax and wane, more forgetful, impulsive when ready to void. Reinforced teaching.
[2019-09-11] MEDS: CEFTRIAXONE 1 GM/50 ML FROZ.PIGGY IV (15:57)
[2019-09-11 16:26] LABS: HCO3 ABG 30 mmol/L (22-26); Oxygen Saturation ABG 93 % (95-100); PCO2 ABG 46.3 mmHg (35-45); PO2 ABG 68 mmHg (80-100); TCO2 ABG 31 mmol/L (21-31); pH ABG 7.42 (7.35-7.45)
[2019-09-11] MEDS: chlordiazePOXIDE 10 MG CAPSULE PO (20:08)
--- NOTE | 2019-09-11 21:50 | PC.NURSE ---
Addendum entered by Annemarie Romero R.N. 09/12/19 00:28: 2345 - Pt out of bed, bed alarm sounding. Removed SCD's. Pt reports that he needs to use the bathroom. Replaced O2 prior to ambulation to the bathroom. Unsteady gait. Back at bedside, upon further questioning, pt disoriented to time. Thinking that it was morning. Reorients easily. Impulsive with activity and conveys some anxiety. Reassurance provided. Reviewed treatment plan, and routine. Reinforced safety and call light use. Call light in reach. Bed alarm on. Original Note: 2014 - Pt resting in bed. Requesting sleeping pill. Pt mildly anxious and impulsive with movements. Asked if pt was feeling anxious. Pt states I don't know what I feel. Educated to ETOH and nicotine withdrawal. Pt again declines nicotine patch. Educated to side effects of steroids. Pt verbalized understanding. Librium given as ordered by physician. Pt denies pain. 92% on 3L HFNC. Productive cough, expiratory wheezing and purse-lip breathing. Reinforced acapella use while awake. Reinforced safety and call light use. Bed alarm on.
[2019-09-11] MEDS: ALBUTEROL 2.5 MG/3 ML NEB (ADULT) INH (23:50)
[2019-09-12] VITALS (11 sets, daily range): BP systolic 152–189; BP diastolic 74–88; PULSE 64–77; RESP 17–22; TEMP 36.2–37.2; O2SAT 92–98; BMI 25.6
[2019-09-12] MEDS: LORazepam 2 MG/ML INJ 1 MG IV (05:00)
[2019-09-12] MEDS: guaiFENesin ER 600 MG TAB PO (05:11)
[2019-09-12] MEDS: MULTIVITAMIN 1 TABLET 1 TAB PO ×2 (05:11→10:49)
[2019-09-12] MEDS: AMLODIPINE 5 MG TABLET PO (05:11)
[2019-09-12] MEDS: ENOXAPARIN 40 MG/0.4 ML SYRINGE SUBCUT (05:12)
--- NOTE | 2019-09-12 05:13 | PC.NURSE ---
Addendum entered by Vianey Starks R.N. 09/12/19 16:20: Pt has been in bed, sleeping soundly since second dose of IV Ativan. Hi flow NC @ 2L, although, changed to mouth d/t mouth breathing. Spo2 96%+. BA active, not currently utilizing Pt 1:! status as He has been sleeping quietly. No further angry outbursts, no throwing items at staff. at bedside, updated about POC, ETOH CIWA scale for increased anxiety and calling out. at staff. Call light in reach, Pt impulsive when awake, and quick exits from bed. Blood gas obtained after Pt up and sitting at bedside. Cooperative with ABG Dr Cox in and reviewed ABG, thought of attempting Bipap with Pt to aid in CO2 retention. Talked with Patient and at length. Concern for increased confusion and tolerating Bipap, as Pt has low tolerance when agitation in climbing. CIWAs have been 15 ad [address] Cox at shift end to clarify plan, as Bipap not ordered. Addendum entered by Vianey Starks R.N. 09/12/19 07:40: 0620-Pt again agitated and attempting to ambulate with out O2 and refusing FWW or staff assist. Security call, Pt more responsive after seeing security at bedside. Lungs remain with exp wheeze, rhonchi High pitched musical type notes. Pt continues to be confused and agitated. MEdicated per emar. Original Note: Nursing Assumed care of Pt @ 0300, Pt up @ 0400, staggering in room, unsteady on feet. Pt noted to be diaphoretic, agitated, visual hallucinations reported, Look at all those waves, gesturing at hospital floor CiWA for 19, call into Dr Moore for Ciwa orders and 1 mg IV Ativan given after significant 1:1 with this RN. Pt is attempting to get OOB, BA active. Impulsive, and difficult to redirect. Improved with Ativan dose, IV flushes well to L UE. Pt reports desire to leave AMA, educated for safety. Coffee at bedside, BA and Call light in reach.
[2019-09-12] MEDS: ALBUTEROL/IPRATROPIUM 3 ML AMPUL INH ×2 (06:00→13:57)
[2019-09-12] MEDS: FLUTICASONE/SALMETEROL 250/50 60 PUFF DISKUS INH (06:00)
[2019-09-12 06:06] LABS: Hematocrit 32.8 % (41-53); Mean Corpuscular HGB Conc 33.5 % (30-36); Mean Corpuscular Hemoglobin 38.4 PG (26-34); Mean Corpuscular Volume 114.7 fL (80-100); Platelet Count 383 X10^3/uL (150-400); Red Blood Cell Count 2.86 X10^6/uL (4.5-5.9); Red Cell Distribution Width 14.7 % (11.6-14.8); White Blood Cell Count 18.6 X10^3/uL (4.5-11.0)
[2019-09-12 06:21] LABS: Add Manual Diff / Slide Review YES
[2019-09-12 06:26] LABS: BUN Creatinine Ratio 35.8 (6-22); Blood Urea Nitrogen 43 mg/dL (9-20); Calcium 9.6 mg/dL (8.4-10.2); Carbon Dioxide 36 mmol/L (22-32); Chloride 96 mmol/L (98-107); Estimated Glomerular Filt Rate 58.1 mL/min (>60); Glucose 189 mg/dL (80-110); HEMOLYSIS < 15 (0-50); Potassium 3.5 mmol/L (3.4-5.1); Sodium 138 mmol/L (137-145)
[2019-09-12] MEDS: LORazepam 2 MG/ML INJ (06:44)
[2019-09-12 07:09] LABS: Neutrophils Absolute Manual 15252 /uL (3000-5900); Nucleated Red Blood Cells 1 #/Diff; Total Cells Counted 100
[2019-09-12 07:10] LABS: Macrocytosis 2+
--- NOTE | 2019-09-12 07:44 | DI.RAD.S_ITS ---
PROCEDURE: XR CHEST 1V INDICATIONS: increased respiratory rate TECHNIQUE: One view of the chest was acquired. COMPARISON: [facility], , XR CHEST 2V, 09/08/2019, 13:29. [facility], , CHEST 2 VIEW, 07/14/2016, 13:41. FINDINGS: Surgical changes and devices: None. Lungs and pleura: Lungs are unchanged, with a mild interstitial prominence. No pleural effusions or pneumothorax. Mediastinum: Mediastinal contours appear normal. Heart size is normal. Bones and chest wall: No suspicious bony lesions. Overlying soft tissues appear unremarkable. IMPRESSION: Normal for age, source of current increased respiratory rate symptoms is not seen. Mild chronic interstitial prominence, which may reflect a prior smoking history. Dictated by: Adelso Vallejo M.D. on 09/12/2019 at 11:29 Approved by: Adelso Vallejo M.D. on 09/12/2019 at 11:30
--- NOTE | 2019-09-12 08:03 | P.PN_ITS ---
Subjective Subjective Date Patient Seen: 09/12/19 Time Patient Seen: 08:03 Interval history: Patient is sleeping soundly after receiving 1 mg of IV Ativan. Became agitated overnight with a CIWA score of 19. He will wake for a few seconds and then return to sleep. Per nursing he was sweating and tremulous at around 4:00 a.m.. Exam Vital Signs (past 8 hours): - 09/12/19 00:05 09/12/19 04:41 09/12/19 06:00 Temperature 98.4 F 98.9 F Pulse Rate 77 73 72 Respiratory Rate 17 22 20 Blood Pressure 152/77 H 184/86 H Pulse Oximetry 98 95 Oxygen Delivery Method Nasal Cannula Oxygen Flow Rate 2 Narrative Exam Narrative: General: Well-developed, well-nourished, male, sound asleep, snoring. Heart: Regular rate and rhythm Lungs: Musical breath sounds throughout, more breath sounds on the right today Extremities: Warm and well perfused, no edema Objective Labs Result Diagrams: 09/12/19 05:10 09/12/19 05:10 Labs: Laboratory Results - last 24 hr 09/11/19 09/12/19 09/12/19 15:57 05:10 05:10 WBC 18.6 H RBC 2.86 L Hgb 11.0 L Hct 32.8 L MCV 114.7 H MCH 38.4 H MCHC 33.5 RDW 14.7 Plt Count 383 Neut % (Auto) Not Reportable Lymph % (Auto) Not Reportable [place] % (Auto) Not Reportable Eos % (Auto) Not Reportable Baso % (Auto) Not Reportable Lymph # (Auto) Not Reportable [place] # (Auto) Not Reportable Baso # (Auto) Not Reportable Total Counted 100 Seg Neutrophils % 60.0 Band Neutrophils % 22.0 H Lymphocytes % (Manual) 6.0 L Atypical Lymphs % 3.0 H Monocytes % (Manual) 6.0 Metamyelocytes % 2.0 H Myelocytes % 1.0 H Neutrophils # (Manual) 96335 H Nucleated RBCs 1 H RBC Morphology See below Macrocytosis 2+ H ABG pH 7.42 ABG pCO2 46.3 H ABG pO2 68 L ABG HCO3 30 H ABG Total CO2 31 ABG O2 Saturation 93 L ABG Base Excess 5.0 H FiO2 0.30 Sodium 138 Potassium 3.5 Chloride 96 L Carbon Dioxide 36 H BUN 43 H Creatinine 1.20 Estimated GFR 58.1 L BUN/Creatinine Ratio 35.8 H Glucose 189 H Calcium 9.6 Assessment & Plan Assessment & Plan narrative: 83 yo male with acute hypoxic/hypercapneic respiratory failure from likely pneumonia with bronchiectasis and COPD exacerbation failed outpatient treatment. Respiratory status was improving but difficult to determine this morning given his somnolent state. sputum growing normal respiratory khalida. Had gram negative cocci with betalactamase most likely moraxelli, should respond to the ceftriaxone. Azithromycin for atypicals. Will check blood gas. Chest xray to assess plugging but breath sounds have improved. May need bronchoscopy. Consider bipap if co2 retention is worsening. Heart failure, likely secondary to pulmonary disease, BNP was elevated, echocardiogram showing normal function. Acute kidney injury, dehydration. Creatinine improving, BUN decreasing. Should be able to maintain on oral fluids if awake. Tobacco use disorder - nicotine patch Hypertension - continue home amlodipine - clonidine for alcohol withdrawal Anemia, macrocytic chronic disease. stable. - monitor. continue PNV with additional folate. Alcohol use disorder. CIWA score 19 last night but other etiologies would include steroids, CO2 retention and worsening respiratory status. - intiated CIWA protocol - scheduled lorazepam Code status: DNR DVT prophylaxis: lovenox Patient requires close monitoring of respiratory status and ongoing treatment and will need at least another 48-72 hours of inpatient care. Of note, 35 minutes was spent on the floor reviewing patient's record both pre- hospitalization and admission record and hospitalization. Discussing his case with his nurse as well as examining interviewing patient and his spouse and discussing plan of care in the room. Time Spent With Patient Time with patient: Greater than 35 minutes
[2019-09-12] MEDS: NICOTINE 21 MG PATCH TOP (10:49)
[2019-09-12 12:18] LABS: HCO3 ABG 36 mmol/L (22-26); PO2 ABG 72 mmHg (80-100); TCO2 ABG 38 mmol/L (21-31)
[2019-09-12 12:19] LABS: Fractionated Inspired Oxygen 28; Oxygen Saturation ABG 94 % (95-100); pH ABG 7.42 (7.35-7.45)
[2019-09-12] MEDS: FOLIC ACID 1 MG TABLET PO (13:00)
[2019-09-12] MEDS: predniSONE 20 MG TABLET 40 MG PO (13:00)
[2019-09-12] MEDS: THIAMINE 100 MG TABLET PO (13:00)
[2019-09-12] MEDS: AZITHROMYCIN 250 MG TABLET 500 MG PO (13:00)
--- NOTE | 2019-09-12 15:29 | CM.DANOTE ---
Addendum entered by Viktoria Butler LPN 09/12/19 15:39: CIWA today is 11. Met now with pt's sister Samina, at bedside. She confirms pt's Arely is POA and at work so Samina is here as family presence. Pt is lying in bed with o2 in place, snoring. Pt is an 83 year old male who admitted to care of PCP Dr. Rodriguez afternoon of 09/10. He is functionally independent at baseline and will likely d/c home when stable for same. Did not at this time discuss specifics of his alcohol use. This would be a better conversation to have with pt when he is clearer and/or POA . DCP team to follow. Original Note: Discharge Planning/Care Management DCP: assessment: case received yesterday and discussed with Dr. Rodriguez. At that time she stated she expected pt to be here a couple days and d/c to home with no needs. Discussed case today in Team Rounds: pt now on CIWA with score of 19 last night and need for 1/ sitter. CM Discharge Assessment Start: 09/12/19 15:20 Freq: Status: Active Protocol: Document 09/12/19 15:27 ITV (Rec: 09/12/19 15:28 ITV [id number]) Discharge Planning Assessment Advance Directives? No History Provided By Family Member,Medical Record Has Patient been admitted in last 30 No days? Prior Living Arrangements House Household Members spouse Type of transport transportation used prior to Drives own vehicle admit Independent with ADL's Yes Is patient alert and oriented? Yes Review Status In Process
[2019-09-12] MEDS: CEFTRIAXONE 1 GM/50 ML FROZ.PIGGY IV (16:42)
--- NOTE | 2019-09-12 16:46 | DIET.PN ---
Dietary Progress Note RD unable to meet c pt today. Per nursing, pt unable to recall where he is, what month it is, and reports active hallucinations though he knows they are not real. Will try again Sunday if pt here.
--- NOTE | 2019-09-12 18:04 | DI.RAD.S_ITS ---
PROCEDURE: XR ABDOMEN 1V INDICATIONS: distention TECHNIQUE: One view of the abdomen acquired. COMPARISON: [facility], CT, CHEST/ABD/PEL WITH CONTRAST, 04/04/2013, 17:51. FINDINGS: Surgical changes and devices: None. Bowel: Bowel gas pattern demonstrates prominently dilated loops of colon. Soft tissues: No suspicious abdominal calcifications. Visualized solid organ contours appear normal in size. Bones: No suspicious bony lesions. IMPRESSION: Prominently dilated loops of colon suggestive of partial obstruction. Dictated by: Simi Cassidy M.D. on 09/12/2019 at 20:05 Approved by: Simi Cassidy M.D. on 09/12/2019 at 20:06
[2019-09-12] MEDS: LORazepam 1 MG TABLET PO (19:19)
[2019-09-12] MEDS: PANTOPRAZOLE 20 MG TABLET PO (19:21)
--- NOTE | 2019-09-12 20:14 | PC.NURSE ---
Addendum entered by Annemarie Romero R.N. 09/12/19 22:41: 2220 - Pt awake. Asking for mask to be removed. SBA to BSC, unsteady gait. Pt +flatus, however no BM and c/o lower abd discomfort. MOM given. Back in bed, pt declines mask on at this time. Calm and cooperative. Conversation appropriate. Reinforced safety and call light use. Bed alarm on. Original Note: 1999 - Pt drowsy, calm, but cooperative. Intermittent confused statements. Mild tremors and reports seeing the ceiling open and close. Making a floating, waving motion with hand. Abd x-ray complete. Pt able to take po meds without difficulty. RT called to place pt on biplex, for YUDITH. RT placed reports 1L bleed in. Monitor. SCD's placed. Call light in reach. Bed alarm on.
[2019-09-12] MEDS: MAGNESIUM HYDROXIDE 30 ML UDC PO (22:40)
[2019-09-13] VITALS (10 sets, daily range): BP systolic 128–176; BP diastolic 64–80; PULSE 58–86; RESP 16–32; TEMP 36–36.8; O2SAT 90–98
[2019-09-13] MEDS: LORazepam 1 MG TABLET PO (02:56)
--- NOTE | 2019-09-13 04:42 | PC.NURSE ---
Pt. desat to 85-86 on high flow 02, so CPAP applied around 0200 with 1L 02 bleed in in which pt. still had sats dropping to the mid 80's. so 02 bleed in increased to 2L which currently now pt. sats is 93%, lung sounds has exp. wheezes throughout with occasional cough. Pt. is alert and oriented but impulsive. Bed alarm set at the most sensitive setting.
[2019-09-13 05:08] LABS: Hematocrit 32.6 % (41-53); Hemoglobin 11.1 g/dL (13.5-17.5); Mean Corpuscular HGB Conc 34.1 % (30-36); Mean Corpuscular Hemoglobin 39.1 PG (26-34); Mean Corpuscular Volume 114.6 fL (80-100); Platelet Count 389 X10^3/uL (150-400); Red Blood Cell Count 2.85 X10^6/uL (4.5-5.9); Red Cell Distribution Width 14.7 % (11.6-14.8); White Blood Cell Count 21.1 X10^3/uL (4.5-11.0)
[2019-09-13 05:10] LABS: Add Manual Diff / Slide Review YES
[2019-09-13 05:15] LABS: BUN Creatinine Ratio 35.8 (6-22); Blood Urea Nitrogen 43 mg/dL (9-20); Calcium 9.2 mg/dL (8.4-10.2); Chloride 97 mmol/L (98-107); Estimated Glomerular Filt Rate 58.1 mL/min (>60); Glucose 113 mg/dL (80-110); HEMOLYSIS < 15 (0-50); Potassium 3.7 mmol/L (3.4-5.1); Sodium 138 mmol/L (137-145)
[2019-09-13 05:22] LABS: Carbon Dioxide 38 mmol/L (22-32)
[2019-09-13] MEDS: LORazepam 2 MG/ML INJ IV (06:30)
--- NOTE | 2019-09-13 06:43 | PC.NURSE ---
Pt. woke up confused this morning and wanted to go home stating his home address and also asking for Lia which he says is his doctor. Informed pt. that Lia should be here this morning but it is still too early this time. Pt. refused to wear his 02 cannula on even with explanations on the need to have it on. Pt. refused his Protonix po stating he promised he will not get stomach ulcer. Pt. administered 1 mg Ativan IV and will continue to monitor and try to keep pt. calm.
[2019-09-13 07:16] LABS: Neutrophils Absolute Manual 15403 /uL (3000-5900); Nucleated Red Blood Cells 1 #/Diff; Total Cells Counted 100
[2019-09-13 07:17] LABS: RBC Morphology Normal Morphology
[2019-09-13] MEDS: ALBUTEROL/IPRATROPIUM 3 ML AMPUL INH ×3 (09:04→19:26)
[2019-09-13] MEDS: FLUTICASONE/SALMETEROL 250/50 60 PUFF DISKUS INH ×2 (09:15→19:26)
[2019-09-13] MEDS: AMLODIPINE 5 MG TABLET PO (09:24)
[2019-09-13] MEDS: predniSONE 20 MG TABLET 40 MG PO (09:25)
[2019-09-13] MEDS: NICOTINE 21 MG PATCH TOP (09:25)
[2019-09-13] MEDS: FOLIC ACID 1 MG TABLET PO (09:26)
[2019-09-13] MEDS: MULTIVITAMIN 1 TABLET 1 TAB PO (09:26)
[2019-09-13] MEDS: THIAMINE 100 MG TABLET PO (09:26)
[2019-09-13] MEDS: AZITHROMYCIN 250 MG TABLET 500 MG PO (09:28)
--- NOTE | 2019-09-13 11:09 | P.PN_ITS ---
Subjective Subjective Date Patient Seen: 09/13/19 Time Patient Seen: 09:00 Interval history: The pt reports feeling well this morning. He wants to go home. He denies significant SOB, and states that his breathing is fine. His , who is present this morning, is concerned about his stability with walking. She feels that he is significantly improved this morning. Exam Vital Signs (past 8 hours): - 09/13/19 04:37 09/13/19 08:00 09/13/19 08:45 Temperature 96.8 F L 98.2 F Pulse Rate 60 67 Respiratory Rate 20 22 Blood Pressure 136/64 176/77 H Pulse Oximetry 93 92 97 09/13/19 09:25 Temperature Pulse Rate 86 Respiratory Rate 32 H Blood Pressure Pulse Oximetry 98 Oxygen Delivery Method High Flow Nasal Cannula Oxygen Flow Rate 2 Narrative Exam Narrative: Gen: NAD, sitting comfortably in chair, appears well overall, NC in place for oxygen, speaking in complete sentences CV: RRR, no murmurs Resp: decreased air movement throughout with poor effort overall, difficult to assess due to poor respiratory effort, however very minimal expiratory wheezing present bilateral bases Abd: soft, nontender, nondistended, normoactive bowel sounds Ext: no edema Objective Labs Result Diagrams: 09/13/19 04:40 09/13/19 04:40 Labs: Laboratory Results - last 24 hr 09/12/19 09/13/19 09/13/19 12:08 04:40 04:40 WBC 21.1 H RBC 2.85 L Hgb 11.1 L Hct 32.6 L MCV 114.6 H MCH 39.1 H MCHC 34.1 RDW 14.7 Plt Count 389 Neut % (Auto) Not Reportable Lymph % (Auto) Not Reportable [place] % (Auto) Not Reportable Eos % (Auto) Not Reportable Baso % (Auto) Not Reportable Lymph # (Auto) Not Reportable [place] # (Auto) Not Reportable Baso # (Auto) Not Reportable Total Counted 100 Seg Neutrophils % 72.0 H Band Neutrophils % 1.0 L Lymphocytes % (Manual) 11.0 L Atypical Lymphs % 3.0 H Monocytes % (Manual) 13.0 H Neutrophils # (Manual) 73864 H Nucleated RBCs 1 H RBC Morphology Normal morphology ABG pH 7.42 ABG pCO2 55.0 H ABG pO2 72 L ABG HCO3 36 H ABG Total CO2 38 H ABG O2 Saturation 94 L ABG Base Excess 11.0 H FiO2 28 Sodium 138 Potassium 3.7 Chloride 97 L Carbon Dioxide 38 H BUN 43 H Creatinine 1.20 Estimated GFR 58.1 L BUN/Creatinine Ratio 35.8 H Glucose 113 H Calcium 9.2 Assessment & Plan Assessment & Plan narrative: 83yo man with COPD, chronic tobacco abuse, HTN, alcoholism, and hx of CVA who presented with SOB, cough, and hypoxia having failed outpatient treatment. Pt found to have acute hypoxic/hypercapneic respiratory failure with pneumonia and COPD exacerbation. Has been gradually responding to antibiotics and steroid therapy with breathing treatments. Concern for abdominal distension yesterday, xray showing possible partial obstruction. Pt with large BM this morning. 1) COPD exacerbation and pneumonia: Stable on 2L NC oxygen. Symptomatic improvement. Sputum growing normal respiratory khalida. CXR yesterday showed no significant change from prior. - Continue Azithromycin and Ceftriaxone (Day #4) - Continue PO prednisone - May need to d/c with home oxygen. Will have RT evaluate. Discussed importance of not smoking with home oxygen. - Continue breathing treatments with RT - Continue Mucinex 2) Alcoholism: CIWA score max of 3 since yesterday morning. Pt appropriate this morning. Still unclear if agitation from alcohol withdrawal vs steroids, CO2 retention, respiratory status. - Previously on scheduled Ativan, will change to PRN dosing - Continue CIWA scoring - Clonidine PRN 3) Hypertension: - Continue home Amlodipine 4) SYLVIE: From dehydration. Resolved. 5) Tobacco abuse: - Nicotine patch 6) Hypetension: - Continue home Amlodipine 6) Anemia: Macrocytic, from chronic disease and possibly alcoholism as well. Stable. - Continue PNV with folate Diet: Regular Code status: DNR DVT prophylaxis: lovenox Dispo: Pending evaluation by PT/OT today, eval by RT for home oxygen, continued improvement in respiratory status. Possible d/c tomorrow.
--- NOTE | 2019-09-13 14:02 | PC.NURSE ---
1330- This TRAVEL INSURANCE AGENT arrived on shift to find pt up out of his chair attempting to remove the clipped chair alarm. I went in and safely assisted pt to the bathroom. This TRAVEL INSURANCE AGENT and PT Roxanne then walked pt around the ICU floor with gait belt. Pt was slightly unsteady on his feet and moved impulsively. Pt now sits in his bedside recliner eating lunch with PT at his side. I am outside his room as a 1:1 sitter.
--- NOTE | 2019-09-13 14:20 | PT.IIE ---
Current Diagnoses Chronic obstructive pulmonary disease, unspecified (09/10/19) Acute respiratory failure with hypercapnia (09/10/19) Surgical History History of carpal tunnel repair (03/02/15) History of cataract removal with insertion of prosthetic lens (02/16/15) History of cataract removal with insertion of prosthetic lens (03/09/15) History of tonsillectomy Status post appendectomy Status post colonoscopy (10/06/09) Status post repair of hydrocele (05/22/11) Medical History (Last Updated 08/09/19 @ 12:15 by Navya Rodriguez DO) Benign prostatic hyperplasia (Chronic 01/29/12) Bradycardia (Chronic) Centrilobular emphysema (Chronic 12/13/16) Cholesteatoma (Chronic 09/10/12) COPD (chronic obstructive pulmonary disease) (Chronic) Hemorrhagic cerebrovascular accident (CVA) (Inactive ~2006) Hyperlipidemia (Chronic) Hypertension (Chronic) Macrocytic anemia (Chronic 07/06/16) Mild alcohol abuse (Chronic 03/26/15) Peripheral vascular disease of foot (Chronic 05/31/17) Sinusitis (Chronic) Substance abuse (Chronic) Syncope (Chronic) Tobacco use disorder, continuous (Chronic 09/10/12) Transient cerebral ischemia (Resolved 04/23/12) Traumatic compression fracture of seventh thoracic vertebra, sequela (Chronic 10/09/16) Tubular adenoma (Chronic) Physical Therapy Inpatient Evaluation/Re-Eval M1 PT/OT-IP Prior Functional Status Start: 09/13/19 14:38 Freq: NEEDED Status: Active Protocol: Document 09/13/19 14:20 DLM (Rec: 09/13/19 15:10 DLM [email or web address]) Medical Review Prior Functional Status Medical History Reviewed Yes Diet/Fluid Consistency Regular Communication WNL Mobility and Gait Independent without device, drives, active in community Activities of Daily Living and IADL's Independent Social History Household Members spouse Living Arrangements House Number of Floors (Floors) Two Floors Number of Stairs To Enter/Railing? 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 Precautions Other Precautions high fall risk, confusion, oxygen needs M3 PT-IP Subjective Start: 09/13/19 14:38 Freq: NEEDED Status: Active Protocol: Document 09/13/19 14:20 DLM (Rec: 09/13/19 15:10 DLM [email or web address]) Subjective Physical Therapy Visit Type Type Initial Evaluation Visit Start Time 13:45 Visit Stop Time 14:20 Total Visit Minutes 35 Number of HEARING AID CONSULTANT Visits 0 Physical Therapy Visit Comments Patient Comments He denies any issues today Patient Goals He wants to go home Therapy Pain Assessment Pain When Pain Assessed During Mobility Pain Present Pain Present Denied Pain M4 PT-IP Mobility and Gait Start: 09/13/19 14:38 Freq: NEEDED Status: Active Protocol: Document 09/13/19 14:20 DLM (Rec: 09/13/19 15:10 DLM [email or web address]) PT-Transfer Assessment Sit to and From Stand Sit to and from Stand Minimal Assistance,Use of Upper Extremities Equipment Transfer Assistive Device Gait Belt,Front Wheeled Walker Transfers Transfer Destination Bed,Toilet Transfer Technique Stand Step Pivot Transfer Ability Level of Assist Minimal Assistance,Use of Upper Extremities Comments Mobility Comments pt is unsafe, does not fully turn before attempting to sit in chair, he is resistant to safety cues, decreased safety awareness during mobility. Pt up in recliner and does not want to return to bed at this time. Pt left eating lunch with his visiting. Gait Assessment Gait Gait Assistance Required: Moderate Assistance Distance (Feet) 150 Assistive Devices Assistive Device Gait Belt,Front Wheeled Walker Gait Deviations General Gait Pattern Decreased Feet Clearance, Festinating,Flexed Trunk Factors Limiting Gait Function Factors Limiting Gait Function Decreased Activity Tolerance, Decreased Strength,Poor Balance,Poor Safety Awareness Comments Gait Comments Pt is not used to using a FWW and has difficulty staying coordinated with it, he shows improved balance with the fWW, trialed gait without device but pt moves too fast starts leaning forward and needs assist to prevent falling PT-Balance Assessment Sitting Balance and Reactions Static Sitting Balance Ability Good Dynamic Sitting Balance Ability Good Standing Balance and Reactions Static Standing Balance Ability Fair Dynamic Standing Balance Ability Poor M5 PT-IP Objective Assessments Start: 09/13/19 14:38 Freq: NEEDED Status: Active Protocol: Document 09/13/19 14:20 DLM (Rec: 09/13/19 15:10 DLM [email or web address]) Orientation Orientation/Cognition Level of Alertness Alert Orientation Name,Place Language Function Ability Hard of Hearing Safety Awareness Decreased Safety Awareness Memory Description Short Term Impaired Comments he is impulsive, has poor safety awareness, resistant to safety cues, worked with SUBSCRIPTION CLERK during this visit to manage his fall risks Gross Range of Motion Upper Extremity ROM Assessment Within Functional Limits Lower Extremity ROM Assessment Within Functional Limits Strength Upper Extremity Strength Assessment Bilaterally Impaired Lower Extremity Strength Assessment Bilaterally Impaired Comments Strength Comments generalized weakness throughout, no focal deficits identifed but pt unwilling to participate in manual muscle testing this visit Coordination Assessment Gross Coordination Gross Coordination Impaired Assessment Coordination Comments mod impairments noted in UE's with functional use of his hands, slow doing coordinated movements, has difficulty opening packages on lunch tray , has difficulty managing zipper and button on pants Sensation Assessment Comments Sensation Comments unable to get a clear answer from pt Muscle Tone Muscle Tone WNL Yes M6 PT-IP Treatment Start: 09/13/19 14:38 Freq: NEEDED Status: Active Protocol: Document 09/13/19 14:20 DLM (Rec: 09/13/19 15:10 DLM [email or web address]) Physical Therapy Treatment Education Education Provided Safety Other Treatments Other Treatment Performed trialed gait with FWW and without device, started conversation with his about discharge concerns, His reports she could not physically prevent him from falling at home and believes she would fall also if she tried M7 PT-IP Assessment and Plan Start: 09/13/19 14:38 Freq: NEEDED Status: Active Protocol: Document 09/13/19 14:20 DLM (Rec: 09/13/19 15:10 DLM [email or web address]) PT Summary Assessment and Plan Potential Rehabilitation Potential Good Status of Condition at Evaluation Evolving Summary Impairments Strength,Balance,Coordination, Bed Mobility,Transfers,Gait, Activity Tolerance Assessment Summary Mr Chambers is alert but has significant cogntive impairment today. He is able to follow simple instructions but is resistant to safety cues. He presents with generalized weakness and decreased standing balance which affect his ability to ambulate safely. Using a fWW helps manage his decreased balance but he has difficulty coordinating his movements with it. Used two people during this visit to manage his fall risks. Goals Bed Mobility Goal Independent Transfer Goal Standby Assistance Gait Goal Standby Assistance Gait Distance 300 feet Other Goals Up and down 12 steps with rail and SBA Days to Meet Goals 5 Frequency of Treatment Frequency Of Treatment Twice a Day Treatment Plan Physical Therapy Treatment Plan Bed Mobility Training,Transfer Training,Gait Training, Therapeutic Exercise,Balance Retraining,Discharge Planning, Neuromuscular Re-ed, Coordination Retraining Recommendations To Nursing Amount of Assist Needed 1 Person Assist,2 Person Assist Discharge Recommendations PT Discharge Recommendations Home with 05/02 Assist,SNF Rehab Transportation Needs at Discharge Private Vehicle,Wheelchair/ Cabulance
--- NOTE | 2019-09-13 14:20 | PT.IIE ---
Current Diagnoses Chronic obstructive pulmonary disease, unspecified (09/10/19) Acute respiratory failure with hypercapnia (09/10/19) Surgical History History of carpal tunnel repair (03/02/15) History of cataract removal with insertion of prosthetic lens (02/16/15) History of cataract removal with insertion of prosthetic lens (03/09/15) History of tonsillectomy Status post appendectomy Status post colonoscopy (10/06/09) Status post repair of hydrocele (05/22/11) Medical History (Last Updated 08/09/19 @ 12:15 by Navya Rodriguez DO) Benign prostatic hyperplasia (Chronic 01/29/12) Bradycardia (Chronic) Centrilobular emphysema (Chronic 12/13/16) Cholesteatoma (Chronic 09/10/12) COPD (chronic obstructive pulmonary disease) (Chronic) Hemorrhagic cerebrovascular accident (CVA) (Inactive ~2006) Hyperlipidemia (Chronic) Hypertension (Chronic) Macrocytic anemia (Chronic 07/06/16) Mild alcohol abuse (Chronic 03/26/15) Peripheral vascular disease of foot (Chronic 05/31/17) Sinusitis (Chronic) Substance abuse (Chronic) Syncope (Chronic) Tobacco use disorder, continuous (Chronic 09/10/12) Transient cerebral ischemia (Resolved 04/23/12) Traumatic compression fracture of seventh thoracic vertebra, sequela (Chronic 10/09/16) Tubular adenoma (Chronic) Physical Therapy Inpatient Evaluation/Re-Eval M1 PT/OT-IP Prior Functional Status Start: 09/13/19 14:38 Freq: NEEDED Status: Active Protocol: Document 09/13/19 14:20 DLM (Rec: 09/13/19 15:10 DLM [email or web address]) Medical Review Prior Functional Status Medical History Reviewed Yes Diet/Fluid Consistency Regular Communication WNL Mobility and Gait Independent without device, drives, active in community Activities of Daily Living and IADL's Independent Social History Household Members spouse Living Arrangements House Number of Floors (Floors) Two Floors Number of Stairs To Enter/Railing? 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 Precautions Other Precautions high fall risk, confusion, oxygen needs M3 PT-IP Subjective Start: 09/13/19 14:38 Freq: NEEDED Status: Active Protocol: Document 09/13/19 14:20 DLM (Rec: 09/13/19 15:10 DLM [email or web address]) Subjective Physical Therapy Visit Type Type Initial Evaluation Visit Start Time 13:45 Visit Stop Time 14:20 Total Visit Minutes 35 Number of GENETIC COUNSELLOR Visits 0 Physical Therapy Visit Comments Patient Comments He denies any issues today Patient Goals He wants to go home Therapy Pain Assessment Pain When Pain Assessed During Mobility Pain Present Pain Present Denied Pain M4 PT-IP Mobility and Gait Start: 09/13/19 14:38 Freq: NEEDED Status: Active Protocol: Document 09/13/19 14:20 DLM (Rec: 09/13/19 15:10 DLM [email or web address]) PT-Transfer Assessment Sit to and From Stand Sit to and from Stand Minimal Assistance,Use of Upper Extremities Equipment Transfer Assistive Device Gait Belt,Front Wheeled Walker Transfers Transfer Destination Bed,Toilet Transfer Technique Stand Step Pivot Transfer Ability Level of Assist Minimal Assistance,Use of Upper Extremities Comments Mobility Comments pt is unsafe, does not fully turn before attempting to sit in chair, he is resistant to safety cues, decreased safety awareness during mobility. Pt up in recliner and does not want to return to bed at this time. Pt left eating lunch with his visiting. Gait Assessment Gait Gait Assistance Required: Moderate Assistance Distance (Feet) 150 Assistive Devices Assistive Device Gait Belt,Front Wheeled Walker Gait Deviations General Gait Pattern Decreased Feet Clearance, Festinating,Flexed Trunk Factors Limiting Gait Function Factors Limiting Gait Function Decreased Activity Tolerance, Decreased Strength,Poor Balance,Poor Safety Awareness Comments Gait Comments Pt is not used to using a FWW and has difficulty staying coordinated with it, he shows improved balance with the fWW, trialed gait without device but pt moves too fast starts leaning forward and needs assist to prevent falling PT-Balance Assessment Sitting Balance and Reactions Static Sitting Balance Ability Good Dynamic Sitting Balance Ability Good Standing Balance and Reactions Static Standing Balance Ability Fair Dynamic Standing Balance Ability Poor M5 PT-IP Objective Assessments Start: 09/13/19 14:38 Freq: NEEDED Status: Active Protocol: Document 09/13/19 14:20 DLM (Rec: 09/13/19 15:10 DLM [email or web address]) Orientation Orientation/Cognition Level of Alertness Alert Orientation Name,Place Language Function Ability Hard of Hearing Safety Awareness Decreased Safety Awareness Memory Description Short Term Impaired Comments he is impulsive, has poor safety awareness, resistant to safety cues, worked with FREIGHT SOLICITOR during this visit to manage his fall risks Gross Range of Motion Upper Extremity ROM Assessment Within Functional Limits Lower Extremity ROM Assessment Within Functional Limits Strength Upper Extremity Strength Assessment Bilaterally Impaired Lower Extremity Strength Assessment Bilaterally Impaired Comments Strength Comments generalized weakness throughout, no focal deficits identified but pt unwilling to participate in manual muscle testing this visit Coordination Assessment Gross Coordination Gross Coordination Impaired Assessment Coordination Comments mod impairments noted in UE's with functional use of his hands, slow doing coordinated movements, has difficulty opening packages on lunch tray , has difficulty managing zipper and button on pants Sensation Assessment Comments Sensation Comments unable to get a clear answer from pt Muscle Tone Muscle Tone WNL Yes M6 PT-IP Treatment Start: 09/13/19 14:38 Freq: NEEDED Status: Active Protocol: Document 09/13/19 14:20 DLM (Rec: 09/13/19 15:10 DLM [email or web address]) Physical Therapy Treatment Education Education Provided Safety Other Treatments Other Treatment Performed trialed gait with FWW and without device, started conversation with his about discharge concerns, His reports she could not physically prevent him from falling at home and believes she would fall also if she tried M7 PT-IP Assessment and Plan Start: 09/13/19 14:38 Freq: NEEDED Status: Active Protocol: Document 09/13/19 14:20 DLM (Rec: 09/13/19 15:10 DLM [email or web address]) PT Summary Assessment and Plan Potential Rehabilitation Potential Good Status of Condition at Evaluation Evolving Summary Impairments Strength,Balance,Coordination, Bed Mobility,Transfers,Gait, Activity Tolerance Assessment Summary Mr Chambers is alert but has significant cognitive impairment today. He is able to follow simple instructions but is resistant to safety cues. He presents with generalized weakness and decreased standing balance which affect his ability to ambulate safely. Using a fWW helps manage his decreased balance but he has difficulty coordinating his movements with it. Used two people during this visit to manage his fall risks. Goals Bed Mobility Goal Independent Transfer Goal Standby Assistance Gait Goal Standby Assistance Gait Distance 300 feet Other Goals Up and down 12 steps with rail and SBA Days to Meet Goals 5 Frequency of Treatment Frequency Of Treatment Twice a Day Treatment Plan Physical Therapy Treatment Plan Bed Mobility Training,Transfer Training,Gait Training, Therapeutic Exercise,Balance Retraining,Discharge Planning, Neuromuscular Re-ed, Coordination Retraining Recommendations To Nursing Amount of Assist Needed 1 Person Assist,2 Person Assist Discharge Recommendations PT Discharge Recommendations Home with 05/02 Assist,SNF Rehab Transportation Needs at Discharge Private Vehicle,Wheelchair/ Cabulance
--- NOTE | 2019-09-13 14:31 | CM.DPC ---
DCP Cont: Discussed patient with Dr Gómez, who was seeing patient today. Stated that he may need to go home with home oxygen. She added a consult for RT for home oxygen use. Patient has noted some agitation this morning, and having one on one sitter. then came in later, and was sitting with patient in his room. Patient needs continued redirection, regarding walker use. He has noted some coughing while in room. P: DCP to continue to follow. Will see how patient does tomorrow. Plan is for patient to go home when he is medically stable, and home oxygen, if needed. Will also consult with Amanda Rincon RN/Massage Operator
[2019-09-13] MEDS: CEFTRIAXONE 1 GM/50 ML FROZ.PIGGY IV (15:42)
--- NOTE | 2019-09-13 16:22 | OT.IP.EVAL ---
Current Diagnoses Chronic obstructive pulmonary disease, unspecified (09/10/19) Acute respiratory failure with hypercapnia (09/10/19) Past Medical History (Last Updated 08/09/19 @ 12:15 by Navya Rodriguez DO) Benign prostatic hyperplasia (Chronic 01/29/12) Bradycardia (Chronic) Centrilobular emphysema (Chronic 12/13/16) Cholesteatoma (Chronic 09/10/12) COPD (chronic obstructive pulmonary disease) (Chronic) Hemorrhagic cerebrovascular accident (CVA) (Inactive ~2006) Hyperlipidemia (Chronic) Hypertension (Chronic) Macrocytic anemia (Chronic 07/06/16) Mild alcohol abuse (Chronic 03/26/15) Peripheral vascular disease of foot (Chronic 05/31/17) Sinusitis (Chronic) Substance abuse (Chronic) Syncope (Chronic) Tobacco use disorder, continuous (Chronic 09/10/12) Transient cerebral ischemia (Resolved 04/23/12) Traumatic compression fracture of seventh thoracic vertebra, sequela (Chronic 10/09/16) Tubular adenoma (Chronic) Surgical History History of carpal tunnel repair (03/02/15) History of cataract removal with insertion of prosthetic lens (02/16/15) History of cataract removal with insertion of prosthetic lens (03/09/15) History of tonsillectomy Status post appendectomy Status post colonoscopy (10/06/09) Status post repair of hydrocele (05/22/11) Occupational Therapy Inpatient Evaluation/Re-Eval M1 PT/OT-IP Prior Functional Status Start: 09/13/19 14:38 Freq: NEEDED Status: Active Protocol: Document 09/13/19 16:28 CGR (Rec: 09/13/19 16:45 CGR [id number]) Medical Review Prior Functional Status Medical History Reviewed Yes Diet/Fluid Consistency Regular Communication WNL Mobility and Gait Independent without device, drives, active in community Activities of Daily Living and IADL's Independent Social History Household Members spouse Living Arrangements House Number of Floors (Floors) 3 or More Floors Number of Stairs To Enter/Railing? 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, bathroom on each level of his house, bedroom is up on second floor, pt aware he can borrow equipment from [employer], he does not have oxygen at home at baseline M2 OT-IP Current Condition Start: 09/13/19 16:27 Freq: Status: Active Protocol: Document 09/13/19 16:28 CGR (Rec: 09/13/19 16:45 CGR [id number]) Occupational Therapy Current Condition Current Condition Evaluation Date 09/13/19 Treatment Diagnosis COPD exacerbation and PNA Diagnosis Onset Date 09/10/19 M3 OT- IP Subjective and Pain Start: 09/13/19 16:27 Freq: Status: Active Protocol: Document 09/13/19 16:28 CGR (Rec: 09/13/19 16:45 CGR [id number]) OT- Subjective Occupational Therapy Visit Type Type Initial Evaluation Visit Start Time 16:07 Visit Stop Time 16:22 Total Visit Minutes 15 OT Pain Assessment Pain When Pain Assessed At Rest Pain Present Pain Present Denied Pain M4 OT- IP ADL's Start: 09/13/19 16:27 Freq: Status: Active Protocol: Document 09/13/19 16:28 CGR (Rec: 09/13/19 16:45 CGR [id number]) OT [id number] Comments OT Self-Feeding Comments Not meal time OT ADL-Grooming Comments OT Grooming Comments Pt declined to perform OT ADL-Oral Care Comments Oral Care Comments Pt declined to perform OT ADL-Dressing General Eval Lower Body Dressing Ability Independent Areas Needing Assistance Socks Comments OT Dressing Comments seated in chair with extra time for catching breath OT ADL-Toileting Comments OT Toileting Comments Pt declined to perform OT ADL-Bathing Comments OT Bathing Comments Not performed in this session. M5 OT- IP IADL's Start: 09/13/19 16:27 Freq: Status: Active Protocol: Document 09/13/19 16:28 CGR (Rec: 09/13/19 16:45 CGR [id number]) OT-Instrumental Activities of Daily Living Deficits IADL Deficits Identified Deficits Home Safety Awareness Awareness of Need for Assistance at Home Decreased Awareness Home Safety Comments Pt is difficult to assess as he provides joking answers to all questions. 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 M6 OT- IP Functional Cognition Start: 09/13/19 16:27 Freq: Status: Active Protocol: Document 09/13/19 16:28 CGR (Rec: 09/13/19 16:45 CGR [id number]) Cognitive Factors Limiting Selfcare Function Cognitive Ability Level of Alertness Alert Patient Orientation Name,Age,Birthday,Month,Date, Year,Place,Situation Attention Span Ability Capable of Focused Attention, Capable of Sustained Attention Ability to Follow Commands Able to Follow One Step Commands with Increased Time, Able to Follow One Step Commands with Repetition Cognitive Comments Cognitive Assessment Comments Recommend formal cognitive assessment. Pt is difficult to assess as he answers questions but often with jokes . OT- Vision and Hearing OT- Hearing Assessment OT- Hearing Assessment Left Ear Impaired OT- Vision Assessment Visual Acuity Glasses For Reading Visual Attentiveness WFL Occular Pursuits WFL Visual Convergence WFL Visual Resendiz WFL M7 OT- IP Mobility and Balance Start: 09/13/19 16:27 Freq: Status: Active Protocol: Document 09/13/19 16:28 CGR (Rec: 09/13/19 16:45 CGR [id number]) OT-Transfer Assessment Sit to and From Stand Sit to and from Stand Standby Assistance Technique Transfer Destination Chair Devices Transfer Assistive Devices None Comments Mobility Comments At end of session after declining all out of chair activity pt stood to give this manual writer a hug stating I don't do handshakes. OT- Balance Assessment Sitting Balance and Reactions Static Sitting Balance Ability Good Dynamic Sitting Balance Ability Fair M8 OT- IP Objective Assessments Start: 09/13/19 16:27 Freq: Status: Active Protocol: Document 09/13/19 16:28 CGR (Rec: 09/13/19 16:45 CGR [id number]) OT Gross Range of Motion Upper Extremity Range of Motion Assessment Within Functional Limits OT Strength Upper Extremity Strength Assessment Within Functional Limits Comments Strength Comments grossly 5/5 OT- Coordination Assessment Upper Extremity Finger to Nose Test Within Functional Limits Finger Tapping Test Within Functional Limits OT-Muscle Tone Assessment Muscle Tone WNL Yes OT Sensation Assessment Edema Edema Absent M9 OT- IP Assessment and Plan Start: 09/13/19 16:27 Freq: Status: Active Protocol: Document 09/13/19 16:28 CGR (Rec: 09/13/19 16:45 CGR [id number]) OT Summary Assessment and Plan Potential Rehabilitation Potential Good Analytic Complexity at Evaluation Low Summary OT Impairments Balance,Functional Cognition, Functional Mobility,Self- Feeding,Grooming,Dressing, Toileting,Bathing,Toilet Transfers,Shower Transfers, Activity Tolerance Progress Towards Goals Progressing Toward Goals Assessment Summary Pt presents as a low complexity evaluation. Per P.T . pt appeared more confused earlier in day. Pt declined out of chair activity but stood at end of session with SBA and no equipment. Pt stated that he understand he needs to press the button prior to getting up. Pt declined further assessment at time time but would benefit from out of chair activity and requests to shave upon next visit. Defer discharge recommendations at this time to P.T. as this was a limited OT eval. P.T. currently recommending d/c to SNF. Will continue to follow. Goals Self-Feeding Goal Independent Grooming Goal Independent Dressing Goal Independent Toileting Goal Independent Bathing Goal Independent Toilet Transfer Goal Independent Shower Transfer Goal Independent Days to Meet Goals 5 Frequency of Treatment Frequency Of Treatment Once a Day Treatment Plan OT Treatment Plan ADL Training,Functional Cognition Training,Functional Mobility,Patient/Family Education,Discharge Planning Other Treatment Recommendations and Next Pt needs functional mobility Treatment Focus assessment, SLUMS or MOCA, and requests shower/shave at next visit. Discharge Recommendations OT Discharge Recommendations SNF Rehab Transportation Needs at Discharge Private Vehicle
--- NOTE | 2019-09-13 16:40 | PC.NURSE ---
Addendum entered by Coni Perkins R.N. 09/13/19 21:29: Pt requesting not to wear CPAP. After desatting to 74% on nasal cannula, discussed with patient the importance of using. Pt agreed nessa has been sleeping soundly for 1 hour on cpap 5L. IV patent. Seizure precautions in place. Original Note: Pt on room air at beginning of shift, satting 88-92%, denies difficulty breathing, junky cough, non productive. Placed on 1LNC after desatting to 86%. Sitting upright in chair.RT giving neb currently. Cont with IV Abx and Oxygen therapy. CPAP to be placed tonight.
[2019-09-13] MEDS: PANTOPRAZOLE 20 MG TABLET PO (19:11)
[2019-09-14 02:33] VITALS: BP 160/81; PULSE 67; RESP 18; TEMP 36.4; O2SAT 96
[2019-09-14 05:48] VITALS: BP 178/77; PULSE 65; RESP 18; TEMP 36.4; O2SAT 97
[2019-09-14] MEDS: PANTOPRAZOLE 20 MG TABLET PO (06:40)
[2019-09-14 08:00] VITALS: BP 168/76; PULSE 71; RESP 16; TEMP 36.3; O2SAT 93
[2019-09-14 08:09] VITALS: O2SAT 93
[2019-09-14] MEDS: FOLIC ACID 1 MG TABLET PO (08:21)
[2019-09-14] MEDS: AMLODIPINE 5 MG TABLET PO (08:21)
[2019-09-14] MEDS: MULTIVITAMIN 1 TABLET 1 TAB PO (08:21)
[2019-09-14] MEDS: AZITHROMYCIN 250 MG TABLET 500 MG PO (08:21)
[2019-09-14] MEDS: predniSONE 20 MG TABLET 40 MG PO (08:22)
[2019-09-14] MEDS: NICOTINE 21 MG PATCH TOP (08:22)
[2019-09-14] MEDS: THIAMINE 100 MG TABLET PO (08:22)
[2019-09-14] MEDS: FLUTICASONE/SALMETEROL 250/50 60 PUFF DISKUS INH (08:28)
[2019-09-14] MEDS: ALBUTEROL/IPRATROPIUM 3 ML AMPUL INH (08:28)
[2019-09-14 08:32] VITALS: PULSE 60; RESP 18; O2SAT 92
[2019-09-14 10:24] LABS: Add Manual Diff / Slide Review NO; Basophils Absolute Auto 100 /uL (0-100); Basophils Percent Auto 0.5 % (0-2); Eosinophils Absolute Auto 100 /uL (0-450); Eosinophils Percent Auto 0.3 % (2-4); Hematocrit 33.9 % (41-53); Hemoglobin 11.1 g/dL (13.5-17.5); Lymphocytes Absolute Auto 2500 /uL (1100-4500); Lymphocytes Percent Auto 12.3 % (25-40); Mean Corpuscular HGB Conc 32.7 % (30-36); Mean Corpuscular Hemoglobin 37.7 PG (26-34); Mean Corpuscular Volume 115.3 fL (80-100); Monocytes Absolute Auto 1600 /uL (0-900); Neutrophils Absolute Auto 15900 /uL (1500-7000); Neutrophils Percent Auto 78.9 % (50-75); Platelet Count 369 X10^3/uL (150-400); Red Blood Cell Count 2.94 X10^6/uL (4.5-5.9); Red Cell Distribution Width 14.7 % (11.6-14.8); White Blood Cell Count 20.1 X10^3/uL (4.5-11.0)
[2019-09-14 10:37] LABS: BUN Creatinine Ratio 35.8 (6-22); Blood Urea Nitrogen 43 mg/dL (9-20); Calcium 9.3 mg/dL (8.4-10.2); Chloride 95 mmol/L (98-107); Estimated Glomerular Filt Rate 58.1 mL/min (>60); Glucose 113 mg/dL (80-110); HEMOLYSIS < 15 (0-50); Potassium 3.6 mmol/L (3.4-5.1); Sodium 139 mmol/L (137-145)
[2019-09-14 10:42] LABS: Carbon Dioxide 39 mmol/L (22-32)
[2019-09-14 10:52] LABS: Macrocytosis 2+; Polychromasia 1+
--- NOTE | 2019-09-14 11:31 | P.DS_ITS ---
History of Present Illness History of Present Illness Date Patient Seen: 09/14/19 Time Patient Seen: 09:00 Chief complaint: COPD Exacerbation and Pneumonia Narrative: Patient is an 83 yo male with long standing tobacco use and COPD who presented to clinic two days ago with worsening respiratory status. Attempt was made to treat him outpatient with steroids and continue keflex which he was taking to a skin infection. His symptoms did not improve and he followed up in clinic today with worsening oxygen saturations and cough. His cough is productive of green sputum. His oxygen saturation has been in the low 80's to 90's at home and goes down with any exertion. says he has been somnolent at home. Coughed all night and didn't sleep last night. He hasn't had a fever. He did have an accident a week ago Sunday. A ladder gave way and he fell scraping up his left elbow and arm. He was seen at the [id number] and started on keflex. He fell into chin strap sewer water. When I saw him 2 days ago this lesion was healing well. He is not concerned about this injury. It is not painful. He did not hit his head when he fell. He does drink regularly with 4 beers or so per day. (nurse) says that he has not suffered withdrawal if he didn't drink for a a few days and he hasn't had DT's or seizure when he's been hospitalized in the past. Discharge Providers Provider Date of admission: 09/10/19 14:55 Discharge Date: 09/14/19 Primary care physician: Navya Rodriguez DO Consults: 09/10/19 15:24 Consult to Respiratory Therapy Evaluate & Treat Comment: Physician Instructions: Evaluate and treat 09/12/19 07:46 Consult to Dietitian, Adult Routine Comment: Reason For Exam: alcohol use, vitamin b12 def 09/13/19 10:30 Consult to Occupational Therapy Evaluate & Treat Comment: Physician Instructions: Evaluate and treat Consult to Physical Therapy Evaluate & Treat Comment: Physician Instructions: Evaluate and Treat Discharge provider: Margarita Gómez MD Summary Hospital Course Discharge Diagnosis: COPD exacerbation Pneumonia Alcoholism Tobacco abuse Hypertension SYLVIE Hypertension Anemia Hospital Course: The pt was admitted with acute respiratory failure from COPD exacerbation and pneumonia, having failed outpatient treatment. He was started on steroids and IV antibiotics. Due to concerns for CHF contributing as well, Echo was completed that was normal. The pts initial SYLVIE resolved with IV fluids. His respiratory status gradually improved. The pt became very agitated while hospitalized, and CIWA protocol was initiated due to concerns for alcohol withdrawal. CIWA scores peaked at 19, and his agitation was controlled with Ativan. Other possible contributing factors included steroids, chronic CO2 retention, and respiratory status. The day prior to discharge, the pt showed no signs of agitation and he did not require any additional Ativan. The day of discharge, the pts respiratory status was significantly improved. His O2 saturation remained in acceptable range on room air. He was ambulating independently with a walker. He will discharge home to complete his antibiotics and steroid taper. He will f/u with his PCP within 1 week. Status at Discharge Cognitive/behavioral status at discharge: oriented Functional status at discharge: uses cane/walker Overall status at discharge: patient is progressing back to baseline Time Spent with Patient Time spent: Greater than 30 minutes Exam Vital Signs (past 8 hours): - 09/14/19 05:48 09/14/19 08:00 09/14/19 08:09 Temperature 97.6 F 97.3 F L Pulse Rate 65 71 Respiratory Rate 18 16 Blood Pressure 178/77 H 168/76 H Pulse Oximetry 97 93 93 09/14/19 08:32 Temperature Pulse Rate 60 Respiratory Rate 18 Blood Pressure Pulse Oximetry 92 Oxygen Delivery Method Room Air Oxygen Flow Rate 0 Narrative Exam Narrative: Gen: NAD, sitting comfortably in chair, appears well overall, speaking in complete sentences CV: RRR, no murmurs Resp: good air movement, no crackles, minimal wheezing bilateral bases Abd: soft, nontender, nondistended, normoactive bowel sounds Ext: no edema Objective Labs Result Diagrams: 09/14/19 10:00 09/14/19 10:00 Labs: Laboratory Results - last 24 hr 09/14/19 09/14/19 10:00 10:00 WBC 20.1 H RBC 2.94 L Hgb 11.1 L Hct 33.9 L MCV 115.3 H MCH 37.7 H MCHC 32.7 RDW 14.7 Plt Count 369 Neut % (Auto) 78.9 H Lymph % (Auto) 12.3 L [place] % (Auto) 8.0 Eos % (Auto) 0.3 L Baso % (Auto) 0.5 Neut # (Auto) 26474 H Lymph # (Auto) 2500 [place] # (Auto) 1600 H Eos # (Auto) 100 Baso # (Auto) 100 RBC Morphology See below Polychromasia 1+ H Macrocytosis 2+ H Sodium 139 Potassium 3.6 Chloride 95 L Carbon Dioxide 39 H BUN 43 H Creatinine 1.20 Estimated GFR 58.1 L BUN/Creatinine Ratio 35.8 H Glucose 113 H Calcium 9.3 Discharge Plan Discharge Plan Patient Disposition: Home Discharge orders & Medications Prescriptions: New multivitamin [Tab-A-Iqra] Tablet 1 tab PO DAILY Qty: 30 RF: 0 prednisone 20 mg Tablet 40 mg PO DAILY Qty: 9 RF: 0 thiamine HCl (vitamin B1) [Vitamin B-1] 100 mg Tablet 100 mg PO DAILY Qty: 30 RF: 0 folic acid 1 mg Tablet 1 mg PO DAILY Qty: 30 RF: 0 guaifenesin [Mucus Relief ER] 600 mg Tablet Extended Release 12hr 600 mg PO Q12HR PRN (Reason: Cough) Qty: 60 RF: 0 cefdinir 300 mg capsule 300 mg PO BID Qty: 4 RF: 0 Continued hydrochlorothiazide 25 mg tablet 25 mg PO QDAY Qty: 90 RF: 3 albuterol sulfate 90 mcg/actuation HFA aerosol inhaler 2 puff INHALATION Q4H PRN (Reason: shortness of breath or wheezing) Qty: 1 RF: 2 Incruse Ellipta 62.5 mcg/actuation blister with device 62.5 mcg INHALATION QDAY Qty: 1 RF: 5 fluticasone furoate-vilanterol 200-25 mcg/dose blister with device 1 inhalation INHALATION DAILY Qty: 60 RF: 6 aspirin 81 mg tablet,delayed release (DR/EC) 81 mg PO DAILY RF: 0 amlodipine [Norvasc] 5 mg tablet 5 mg PO QDAY Qty: 90 RF: 3 Discontinued cephalexin 500 mg capsule 500 mg PO BID 10 Days Qty: 20 RF: 0 prednisone 20 mg tablet 40 mg PO DAILY 5 Days Qty: 10 RF: 0 Follow up/Referrals: Navya Rodriguez DO [Primary Care Provider] - 3-5 Days Diet/Activity/Treatments Diet: Regular Visit Report/Discharge Packet Instructions: DI for Chronic Obstructive Pulmonary Disease, DI for Pneumonia -- Adult, Prednisone, Cefdinir Visit Report Forms: Patient Portal/API, Stroke Signs & Symptoms Discharge Data Primary Care Provider: Navya Rodriguez
--- NOTE | 2019-09-14 11:34 | PT.IPTN ---
Current Diagnoses Chronic obstructive pulmonary disease, unspecified (09/10/19) Acute respiratory failure with hypercapnia (09/10/19) Physical Therapy Treatment Note M2 PT-IP Current Condition Start: 09/13/19 14:38 Freq: NEEDED Status: Active Protocol: Document 09/13/19 14:20 DLM (Rec: 09/13/19 15:10 DLM [id number]) Physical Therapy Current Condition Current Condition Evaluation Date 09/13/19 Treatment Diagnosis impaired balance and gait Onset Date 09/10/19. Precautions Other Precautions high fall risk, confusion, oxygen needs M3 PT-IP Subjective Start: 09/13/19 14:38 Freq: NEEDED Status: Active Protocol: Document 09/14/19 11:34 CLB (Rec: 09/14/19 12:35 CLB [email or web address]) Subjective Physical Therapy Visit Type Type Treatment Note Visit Start Time 11:34 Visit Stop Time 12:01 Total Visit Minutes 25 Number of WATER MECHANIC Visits 1 Physical Therapy Visit Comments Patient Comments states he is fine Patient Goals He wants to go home Therapy Pain Assessment Pain When Pain Assessed During Mobility Pain Present Pain Present Denied Pain M4 PT-IP Mobility and Gait Start: 09/13/19 14:38 Freq: NEEDED Status: Active Protocol: Document 09/14/19 11:34 CLB (Rec: 09/14/19 12:35 CLB [id number]) PT-Transfer Assessment Sit to and From Stand Sit to and from Stand Standby Assistance,Contact Guard Assistance Equipment Transfer Assistive Device Gait Belt,Front Wheeled Walker Transfers Transfer Destination Chair Transfer Technique Stand Step Pivot Transfer Ability Level of Assist Contact Guard Assistance Comments Mobility Comments Pt stood CGA from chair and ambulated into bathroom. Pt stood to use toilet. Pt then ambulated to sind. Once at sink pt was able to stand at sink to wash hand SBA. Pt ambulated to stairs w/o AD CGA with unsteady gait with head turns and speed change. Pt climbed stairs with left ascending stair SBA with cues to slow down for safety. Pt then ambulated back to room with FWW/SBA with improvement with head turns and speed change. Pt agreeable to use FWW at home, son will assist pt into house and will borrow FWW from neighbor once the arrive home. Pt left in chair with alarm on with and DRAINAGE DESIGN COORDINATOR present. Informed RN of pt progress. Gait Assessment Gait Gait Assistance Required: Standby Assistance,Contact Guard Assist,1 Person Assist Distance (Feet) 500 Assistive Devices Assistive Device Gait Belt,Front Wheeled Walker Gait Deviations General Gait Pattern Decreased Feet Clearance, Festinating,Flexed Trunk Factors Limiting Gait Function Factors Limiting Gait Function Decreased Activity Tolerance, Decreased Strength,Poor Balance,Poor Safety Awareness Comments Gait Comments please see mobility comments. Stair Climbing Assessment Evaluation Level of Assist On Stairs Standby Assistance Devices Stair Climbing Assistive Devices Left Railing Technique/Endurance Stair Climbing Direction Ascend and Descend Stair Climbing Technique Step Over Step Number of Steps Climbed 3 Stair Climbing Set # Repetitions (reps) 4 Comments Stair Climbing Comments Pt able to climb up/down three stairs x4 SBA with cues to slow down when turning to start back up steps. M5 PT-IP Objective Assessments Start: 09/13/19 14:38 Freq: NEEDED Status: Active Protocol: Document 09/13/19 14:20 DLM (Rec: 09/13/19 15:10 DLM [email or web address]) Orientation Orientation/Cognition Level of Alertness Alert Orientation Name,Place Language Function Ability Hard of Hearing Safety Awareness Decreased Safety Awareness Memory Description Short Term Impaired Comments he is impulsive, has poor safety awareness, resistant to safety cues, worked with DRAINAGE DESIGN COORDINATOR during this visit to manage his fall risks Gross Range of Motion Upper Extremity ROM Assessment Within Functional Limits Lower Extremity ROM Assessment Within Functional Limits Strength Upper Extremity Strength Assessment Bilaterally Impaired Lower Extremity Strength Assessment Bilaterally Impaired Comments Strength Comments generalized weakness throughout, no focal deficits identifed but pt unwilling to participate in manual muscle testing this visit Coordination Assessment Gross Coordination Gross Coordination Impaired Assessment Coordination Comments mod impairments noted in UE's with functional use of his hands, slow doing coordinated movements, has difficulty opening packages on lunch tray , has difficulty managing zipper and button on pants Sensation Assessment Comments Sensation Comments unable to get a clear answer from pt Muscle Tone Muscle Tone WNL Yes M6 PT-IP Treatment Start: 09/13/19 14:38 Freq: NEEDED Status: Active Protocol: Document 09/14/19 11:34 CLB (Rec: 09/14/19 12:35 CLB [id number]) Physical Therapy Treatment Education Education Provided Safety Other Treatments Other Treatment Performed Pt remains steadier with FWW and agreeable to use FWW at home. Pt ambulated ~250ft with FWW/SBA, pt agreed pt is doing better with balance today. M7 PT-IP Assessment and Plan Start: 09/13/19 14:38 Freq: NEEDED Status: Active Protocol: Document 09/14/19 11:34 CLB (Rec: 09/14/19 12:35 CLB [id number]) PT Summary Assessment and Plan Potential Rehabilitation Potential Good Status of Condition at Evaluation Evolving Summary Impairments Strength,Balance,Coordination, Bed Mobility,Transfers,Gait, Activity Tolerance Assessment Summary Pt improved with dynamic mobility today but continues to need FWW for improved safety and balance. Pt able to manuever FWW safely today and is agreeable to use FWW at home. Pt climbed 12 steps w/ rail SBA and ambulated ~500ft. Pt seems safe to d/c home with use of FWW that will borrow from next door neighbor. Pts son with assist pt into home at d/c. Pt feels pts gait is steadier today and feels he will do well with use of FWW with mobilty. Goals Bed Mobility Goal Independent Transfer Goal Standby Assistance Gait Goal Standby Assistance Gait Distance 300 feet Other Goals Up and down 12 steps with rail and SBA Days to Meet Goals 5 Frequency of Treatment Frequency Of Treatment Twice a Day Treatment Plan Physical Therapy Treatment Plan Bed Mobility Training,Transfer Training,Gait Training, Therapeutic Exercise,Balance Retraining,Discharge Planning, Neuromuscular Re-ed, Coordination Retraining Recommendations To Nursing Amount of Assist Needed 1 Person Assist Discharge Recommendations PT Discharge Recommendations Home with / Assist Transportation Needs at Discharge Private Vehicle,Wheelchair/ Cabulance
--- NOTE | 2019-09-14 11:34 | CM.DPC ---
Addendum entered by Aaliyah Rincon R.N. 09/14/19 11:49: Dr. Gómez has already written discharge orders, and patient is ambulating through the hallway with his walker, and by his side. Original Note: DCP Cont: Discussed discharge with Dr. Gómez today. Plan is still for home, but P.T, is concerned about gait, and ambulation. They have suggested prison, but with behaviors, most likely they will not accept. Can look into home health as well. P: DCP to continue to follow closely. Can look into home health for patient. Will see how patient does with P.T. today. Aaliyah Rincon RN/Family Service Caseworker
== END 2019-09-14 13:00 | disposition home or self-care (01) | DRG 189 ==
LOC: AC 15:26 → ICU 09-11 14:38
PROVIDERS: Family Medicine; Admitting Provider Family Medicine; PCP Family Medicine; Referring Provider Family Medicine; Visit Provider Family Medicine
DX: J96.02 Acute respiratory failure with hypercapnia (principal); J18.9 Pneumonia, unspecified organism; N17.9 Acute kidney failure, unspecified; J44.0 Chronic obstructive pulmonary disease with (acute) lower respiratory infection; J44.1 Chronic obstructive pulmonary disease with (acute) exacerbation; F10.239 Alcohol dependence with withdrawal, unspecified; J96.01 Acute respiratory failure with hypoxia; F17.210 Nicotine dependence, cigarettes, uncomplicated; I10 Essential (primary) hypertension; D53.9 Nutritional anemia, unspecified; Z86.73 Personal history of transient ischemic attack (TIA), and cerebral infarction without residual deficits; Z66 Do not resuscitate; E78.5 Hyperlipidemia, unspecified
CPT/HCPCS: 36415; 36600; 71045; 71046; 71250; 74018; 80048; 80053; 80061; 81001; 82805; 83880; 84145; 85025; 85379; 86140; 87040; 87070; 87077; 87185; 87205; 87502; 87797; 93005; 93306; 94640; 94660; 94667; 94760; 94762; 97116; 97162; 97165; 99223; 99232; 99233; 99238; J1650; J2060; J2930; J7613

== ENCOUNTER → 2019-12-17 13:11 | Outpatient (CLI) | payer MEDICARE, OTHER, SELFPAY ==
[2019-12-17 13:51] LABS: Add Manual Diff / Slide Review NO; Basophils Absolute Auto 0 /uL (0-100); Basophils Percent Auto 0.8 % (0-2); Eosinophils Absolute Auto 100 /uL (0-450); Eosinophils Percent Auto 1.5 % (2-4); Hematocrit 34.7 % (41-53); Hemoglobin 12.1 g/dL (13.5-17.5); Lymphocytes Absolute Auto 1600 /uL (1100-4500); Lymphocytes Percent Auto 30.9 % (25-40); Mean Corpuscular HGB Conc 34.8 % (30-36); Mean Corpuscular Hemoglobin 38.9 PG (26-34); Mean Corpuscular Volume 111.7 fL (80-100); Monocytes Absolute Auto 800 /uL (0-900); Monocytes Percent Auto 14.5 % (3-14); Neutrophils Absolute Auto 2800 /uL (1500-7000); Neutrophils Percent Auto 52.3 % (50-75); Platelet Count 257 X10^3/uL (150-400); Red Blood Cell Count 3.11 X10^6/uL (4.5-5.9); Red Cell Distribution Width 14.9 % (11.6-14.8); White Blood Cell Count 5.3 X10^3/uL (4.5-11.0)
[2019-12-17 14:09] LABS: Macrocytosis 2+
[2019-12-17 14:27] LABS: Alanine Aminotransferase 20 IU/L (<50); Albumin 4.4 g/dL (3.5-5.0); Albumin Globulin Ratio 1.4 (1.0-2.8); Alkaline Phosphatase 90 U/L (38-126); Aspartate Aminotransferase 38 IU/L (17-59); BUN Creatinine Ratio 23.1 (6-22); Bilirubin Total 0.5 mg/dL (0.2-1.3); Blood Urea Nitrogen 30 mg/dL (9-20); Calcium 9.7 mg/dL (8.4-10.2); Carbon Dioxide 30 mmol/L (22-32); Chloride 95 mmol/L (98-107); Cholesterol 178 mg/dL (140-199); Globulin 3.1 g/dL (1.7-4.1); Glucose 98 mg/dL (80-110); HDL Cholesterol 69 mg/dL (40-60); HEMOLYSIS < 15 (0-50); LDL Cholesterol Calculated 92 mg/dL (<100); Potassium 4.4 mmol/L (3.4-5.1); Sodium 133 mmol/L (137-145); Total Protein 7.5 g/dL (6.3-8.2); Triglycerides 83 mg/dL (35-150)
== END ==
PROVIDERS: PCP Family Medicine; Referring Provider Family Medicine; Visit Provider Family Medicine
DX: D53.9 Nutritional anemia, unspecified (principal); E78.5 Hyperlipidemia, unspecified; I10 Essential (primary) hypertension; I73.9 Peripheral vascular disease, unspecified; J43.2 Centrilobular emphysema
CPT/HCPCS: 36415; 80053; 80061; 85025

== ENCOUNTER → 2020-01-27 08:39 | Outpatient (CLI) | payer MEDICARE, OTHER, SELFPAY ==
--- NOTE | 2020-01-27 08:41 | DI.CT.S_ITS ---
PROCEDURE: CT CHEST WO CON INDICATIONS: lung mass TECHNIQUE: Noncontrast 5 mm thick sections acquired from the pulmonary apices to the posterior costophrenic angles. 1 mm lung window, 5 mm thick coronal and sagittal and 7 mm axial MIP reformats were then acquired. For radiation dose reduction, the following was used: automated exposure control, adjustment of mA and/or kV according to patient size. COMPARISON: [facility], CT, CT CHEST WO CON, 09/10/2019, 18:22. FINDINGS: Image quality: Excellent. Lungs and pleura: No acute air space opacities. No pleural effusions or pneumothorax. Central and peripheral airways are patent and normal in caliber. Severe centrilobular emphysematous changes are present. The right apical medial masslike opacity current measures 22 mm AP x 11 mm transverse. This is compared to 20 mm AP x 9 mm transverse. The bandlike opacity posterior to this mass is unchanged. There has been marked interval reduction in size and number of the previously identified nodular opacities within the lungs bilaterally most severe on the right. Mediastinum: Heart size is normal. No pericardial effusion. Anterior right paratracheal lymph node has decreased in size measuring 9 mm compared to 13 mm on prior exam. Thoracic aorta and central pulmonary arteries are normal in size. Esophagus is normal in caliber. No hiatal hernia. Bones and chest wall: No suspicious bony lesions. No vertebral body compression fractures. No axillary or supraclavicular adenopathy by size criteria. Thyroid gland is unremarkable . Abdomen: Visualized upper abdominal solid organs and bowel loops appear normal in the absence of contrast. IMPRESSION: 1. Medial right apical mass, appearing slightly increased in size compared to prior exam. Close interval follow-up is recommended as disease progression cannot be excluded. 2. Previously identified areas of nodular opacity within the lungs particularly on the right demonstrate a marked interval decrease in size with several areas appearing completely resolved. Dictated by: Simi Cassidy M.D. on 01/27/2020 at 11:23 Approved by: Simi Cassidy M.D. on 01/27/2020 at 11:54
== END ==
PROVIDERS: PCP Family Medicine; Referring Provider Family Medicine; Visit Provider Family Medicine
DX: R91.8 Other nonspecific abnormal finding of lung field (principal)
CPT/HCPCS: 71250

== ENCOUNTER → 2020-04-24 12:16 | Outpatient (CLI) | payer MEDICARE, OTHER, SELFPAY ==
[2020-04-24 12:28] LABS: COVID19 -Nasal RAPID Negative (Negative)
--- NOTE | 2020-04-30 15:55 | PM.PFT.1 ---
Pulmonary Function Test Referral & Results Date Patient Seen: 04/24/20 Requesting provider: Elier Rush Results: The spirometry demonstrates an FVC of 3.42 L which is 84% of predicted. The FEV1 was measured at 1.39 L which is 48% of predicted. The FEV1/FVC ratio was 41 which is 57% of predicted. Following the administration of bronchodilator there was 20% improvement in FEF 25-75%. Lung volumes show an SVC of 3.64 L which is 82% of predicted. The diffusing capacity was measured at 11.7 which is 35% of predicted. No hemoglobin value was provided, so no correction for potential anemia could be made, if appropriate. The maximum voluntary ventilation was reduced Interpretation: This study demonstrates moderately severe obstructive lung disease based on reduction FEV1 and FEV1/FVC ratio. There is evidence of very minimal improvement in small airway flow particularly based on numbers as above after bronchodilator There is a minimal reduction in lung volumes suggesting some element of restrictive lung disease There is also some very significant reduction in diffusing capacity suggesting significant disease at the capillary alveolar level to the point where patient is likely hypoxic at times on room air Compared to PFTs performed in August 2016, current spirometry is essentially unchanged, perhaps minimally improved. There is no diffusing capacity done previously for direct comparison. Clinical correlation suggested
== END ==
PROVIDERS: Physician Assistant; PCP Family Medicine; Referring Provider Internal Medicine Hematology & Oncology; Visit Provider Internal Medicine Hematology & Oncology
DX: R91.8 Other nonspecific abnormal finding of lung field (principal); F17.210 Nicotine dependence, cigarettes, uncomplicated; J98.8 Other specified respiratory disorders
CPT/HCPCS: 87635; 94060; 94726; 94729

== ENCOUNTER → 2020-04-26 11:45 | Outpatient (CLI) | payer MEDICARE, OTHER, SELFPAY ==
[2020-04-26 12:54] LABS: BUN Creatinine Ratio 19.9 (6-22); Blood Urea Nitrogen 34 mg/dL (9-20); Calcium 9.9 mg/dL (8.4-10.2); Carbon Dioxide 30 mmol/L (22-32); Chloride 104 mmol/L (98-107); Estimated Glomerular Filt Rate 38.5 mL/min (>60); Glucose 108 mg/dL (80-110); HEMOLYSIS < 15 (0-50); Sodium 141 mmol/L (137-145)
[2020-04-26 12:58] LABS: Potassium 5.6 mmol/L (3.4-5.1)
== END ==
PROVIDERS: PCP Family Medicine; Referring Provider Family Medicine; Visit Provider Family Medicine
DX: N18.9 Chronic kidney disease, unspecified (principal)
CPT/HCPCS: 36415; 80048

== ENCOUNTER → 2020-05-20 14:12 | Outpatient (CLI) | payer MEDICARE, OTHER, SELFPAY ==
[2020-05-20 14:58] LABS: BUN Creatinine Ratio 32.9 (6-22); Blood Urea Nitrogen 50 mg/dL (9-20); Calcium 9.4 mg/dL (8.4-10.2); Carbon Dioxide 35 mmol/L (22-32); Chloride 100 mmol/L (98-107); Estimated Glomerular Filt Rate 44.1 mL/min (>60); Glucose 161 mg/dL (80-110); HEMOLYSIS < 15 (0-50); Potassium 4.2 mmol/L (3.4-5.1); Sodium 140 mmol/L (137-145)
== END ==
PROVIDERS: PCP Family Medicine; Referring Provider Family Medicine; Visit Provider Family Medicine
DX: D53.9 Nutritional anemia, unspecified (principal); E78.5 Hyperlipidemia, unspecified; I10 Essential (primary) hypertension
CPT/HCPCS: 36415; 80048

== ENCOUNTER → 2020-07-21 12:21 | Outpatient (CLI) | payer MEDICARE, OTHER, SELFPAY ==
[2020-07-21 12:58] LABS: Add Manual Diff / Slide Review NO; Basophils Absolute Auto 0 /uL (0-100); Basophils Percent Auto 0.4 % (0-2); Eosinophils Absolute Auto 100 /uL (0-450); Eosinophils Percent Auto 1.3 % (2-4); Hemoglobin 9.7 g/dL (13.5-17.5); Lymphocytes Absolute Auto 1400 /uL (1100-4500); Lymphocytes Percent Auto 23.7 % (25-40); Mean Corpuscular HGB Conc 33.5 % (30-36); Mean Corpuscular Hemoglobin 37.3 PG (26-34); Mean Corpuscular Volume 111.4 fL (80-100); Monocytes Absolute Auto 900 /uL (0-900); Monocytes Percent Auto 14.1 % (3-14); Neutrophils Absolute Auto 3700 /uL (1500-7000); Neutrophils Percent Auto 60.5 % (50-75); Platelet Count 309 X10^3/uL (150-400); Red Cell Distribution Width 16.7 % (11.6-14.8)
[2020-07-21 13:45] LABS: Alanine Aminotransferase 16 IU/L (<50); Albumin 3.9 g/dL (3.5-5.0); Albumin Globulin Ratio 1.2 (1.0-2.8); Alkaline Phosphatase 98 U/L (38-126); Aspartate Aminotransferase 25 IU/L (17-59); BUN Creatinine Ratio 21.6 (6-22); Bilirubin Total 0.2 mg/dL (0.2-1.3); Blood Urea Nitrogen 29 mg/dL (9-20); Calcium 9.5 mg/dL (8.4-10.2); Carbon Dioxide 31 mmol/L (22-32); Chloride 105 mmol/L (98-107); Globulin 3.3 g/dL (1.7-4.1); Glucose 122 mg/dL (80-110); HEMOLYSIS < 15 (0-50); Potassium 3.8 mmol/L (3.4-5.1); Sodium 140 mmol/L (137-145); Total Protein 7.2 g/dL (6.3-8.2)
[2020-07-21 14:12] LABS: Appearance Urine UA SL CLOUDY; Bilirubin Urine UA NEGATIVE (NEGATIVE); Color Urine UA YELLOW; Glucose Urine UA NEGATIVE (Negative); Ketones Urine UA NEGATIVE (NEGATIVE); Leukocyte Esterase Urine UA 2+ (NEGATIVE); Nitrite Urine UA POSITIVE (Negative); Occult Blood Urine UA 1+ (Negative); Protein Urine UA 1+ (Negative); Urobilinogen Urine UA 0.2 E.U./dL (0.2)
[2020-07-21 14:17] LABS: RBC Urine 1-5/HPF (0-5/HPF)
[2020-07-21 14:18] LABS: Bacteria Urine Many (>30); Culture Indicated Urine Specimen Cultured; Squamous Epithelial Cell Urine 1-5 /HPF (0-5/HPF); WBC Urine 10-30/HPF (0-5/HPF)
[2020-07-21 15:56] LABS: Anisocytosis 2+; Macrocytosis 3+
[2020-07-21 15:57] LABS: Platelet Estimate Adequate on smear; Poikilocytosis 1+
== END ==
PROVIDERS: PCP Family Medicine; Referring Provider Family Medicine; Visit Provider Family Medicine
DX: D53.9 Nutritional anemia, unspecified (principal); I10 Essential (primary) hypertension; N18.31 Chronic kidney disease, stage 3a; N40.0 Benign prostatic hyperplasia without lower urinary tract symptoms; R00.1 Bradycardia, unspecified
CPT/HCPCS: 36415; 80053; 81001; 85025; 87077; 87086; 87186

== ENCOUNTER → 2020-08-13 12:26 | Outpatient (CLI) | payer MEDICARE, OTHER, SELFPAY ==
[2020-08-13 12:51] LABS: Bacteria Urine None Seen
[2020-08-13 13:04] LABS: Add Manual Diff / Slide Review NO; Basophils Absolute Auto 0 /uL (0-100); Basophils Percent Auto 0.9 % (0-2); Eosinophils Absolute Auto 100 /uL (0-450); Eosinophils Percent Auto 1.2 % (2-4); Hematocrit 33.5 % (41-53); Hemoglobin 10.9 g/dL (13.5-17.5); Lymphocytes Absolute Auto 1400 /uL (1100-4500); Lymphocytes Percent Auto 30.4 % (25-40); Mean Corpuscular HGB Conc 32.6 % (30-36); Mean Corpuscular Hemoglobin 36.4 PG (26-34); Mean Corpuscular Volume 111.7 fL (80-100); Monocytes Absolute Auto 900 /uL (0-900); Monocytes Percent Auto 20.2 % (3-14); Neutrophils Absolute Auto 2200 /uL (1500-7000); Neutrophils Percent Auto 47.3 % (50-75); Platelet Count 242 X10^3/uL (150-400); Red Cell Distribution Width 17.4 % (11.6-14.8); White Blood Cell Count 4.6 X10^3/uL (4.5-11.0)
[2020-08-13 13:09] LABS: Reticulocyte Count, Percent 1.8 % (0.87-2.60)
[2020-08-13 13:19] LABS: BUN Creatinine Ratio 21.6 (6-22); Blood Urea Nitrogen 33 mg/dL (9-20); Calcium 10.2 mg/dL (8.4-10.2); Carbon Dioxide 33 mmol/L (22-32); Chloride 101 mmol/L (98-107); Estimated Glomerular Filt Rate 43.8 mL/min (>60); Glucose 104 mg/dL (80-110); HEMOLYSIS < 15 (0-50); Lactate Dehydrogenase 526 U/L (313-618); Potassium 5.1 mmol/L (3.4-5.1); Sodium 139 mmol/L (137-145)
[2020-08-13 13:24] LABS: HEMOLYSIS < 15 (0-50); Iron 104 ug/dL (49-181)
[2020-08-13 13:28] LABS: Appearance Urine UA CLOUDY; Bilirubin Urine UA NEGATIVE (NEGATIVE); Color Urine UA YELLOW; Glucose Urine UA NEGATIVE (Negative); Ketones Urine UA NEGATIVE (NEGATIVE); Leukocyte Esterase Urine UA 3+ (NEGATIVE); Nitrite Urine UA POSITIVE (Negative); Occult Blood Urine UA TRACE-INTACT (Negative); Protein Urine UA 2+ (Negative); Specific Gravity Urine UA 1.015 (1.000-1.035); Urobilinogen Urine UA 0.2 E.U./dL (0.2); pH Urine UA 6.5 (4.5-8.0)
[2020-08-13 13:34] LABS: Percent Iron Saturation 35 % (20-50); Total Iron Binding Capacity 295 ug/dL (261-462); Transferrin 234 mg/dL (206-381)
[2020-08-13 13:36] LABS: Amorphous Sediment Urine 1+; Culture Indicated Urine Specimen Cultured; RBC Urine 1-5/HPF (0-5/HPF); WBC Urine 10-30/HPF (0-5/HPF)
[2020-08-13 13:44] LABS: Anisocytosis 1+; Macrocytosis 2+
[2020-08-13 13:54] LABS: Ferritin 122 ng/mL (18-464)
[2020-08-13 14:25] LABS: Folate > 20.0 ng/mL (2.76-20.0); Vitamin B12 943 pg/mL (239-931)
[2020-08-14 07:36] LABS: Haptoglobin 118 mg/dL (38-329)
[2020-08-14 17:18] LABS: Erythropoietin 45.9 mIU/mL (2.6-18.5)
== END ==
PROVIDERS: PCP Family Medicine; Referring Provider Family Medicine; Visit Provider Family Medicine
DX: D53.9 Nutritional anemia, unspecified (principal); N18.31 Chronic kidney disease, stage 3a; N39.0 Urinary tract infection, site not specified; R33.9 Retention of urine, unspecified
CPT/HCPCS: 36415; 80048; 81001; 82607; 82668; 82728; 82746; 83010; 83540; 83550; 83615; 85025; 85045; 87077; 87086; 87186

== ENCOUNTER → 2020-08-18 09:53 | Outpatient (CLI) | payer MEDICARE, OTHER, SELFPAY ==
--- NOTE | 2020-08-18 09:57 | DI.US.S_ITS ---
PROCEDURE: US RENAL COMPLETE INDICATIONS: WORSENING KIDNEY FUNCTION TECHNIQUE: Real-time scanning was performed of the kidneys and bladder, with image documentation. COMPARISON: None. FINDINGS: Kidneys: Kidneys are normal in size. Right kidney measures 10.6 cm long; left kidney measures 11.3 cm long. Right renal cortical thickness is 1.6 cm; left renal cortical thickness is 1.4 cm. Renal cortical echotexture is normal. No nephrolithiasis. No suspicious solid mass lesions. There is moderate to prominent left-sided hydronephrosis seen, which persists postvoid. Cysts are seen involving the left kidney, which measure 1.2 cm within the inferior medial kidney, with mild complexity with apparent internal septations, without abnormal vascularity. Along the superolateral aspect of the left kidney, there is a septated nonvascular cyst that measures 2.4 x 1.5 x 2.5 cm. Within the right kidney, there is an anterior superior cortical cyst that measures 9 mm. Bladder: Pre-void bladder volume is 220 mL. Post-void residual is 33 mL. Pre-void images demonstrate no intraluminal masses or stones. On pre-void images, neither of the ureteral jets are noted with color Doppler interrogation. (Of note, ureteral jets may not be detectable in up to 25% of cases due to insufficient differences in specific gravity between ureteral and bladder urine). Miscellaneous: No free pelvic fluid. IMPRESSION: There is moderate to prominent left-sided hydronephrosis, which persists postvoid. There are 2 complex cysts with apparent septations involving the left kidney, measuring up to 2.5 cm and up to 1.2 cm. Mild postvoid residual, 33 cc. Dictated by: Abdirahman Alvarenga M.D. on 08/18/2020 at 11:41 Approved by: Abdirahman Alvarenga M.D. on 08/18/2020 at 11:45
== END ==
PROVIDERS: PCP Family Medicine; Referring Provider Family Medicine; Visit Provider Family Medicine
DX: N18.31 Chronic kidney disease, stage 3a (principal); R33.9 Retention of urine, unspecified; N28.1 Cyst of kidney, acquired
CPT/HCPCS: 76770

== ENCOUNTER → 2020-08-25 12:24 | Outpatient (CLI) | payer MEDICARE, OTHER, SELFPAY ==
[2020-08-19 10:23] VITALS: BMI 25.6
== END ==
PROVIDERS: PCP Family Medicine; Referring Provider Family Medicine; Visit Provider Family Medicine
DX: D64.9 Anemia, unspecified (principal)
CPT/HCPCS: 36415

== ENCOUNTER → 2020-08-27 14:55 | Outpatient (CLI) | payer MEDICARE, OTHER, SELFPAY ==
[2020-08-19 10:23] VITALS: BMI 25.6
[2020-08-27 15:55] LABS: Occult Blood 1 Negative (Negative); Occult Blood 2 Negative (Negative)
== END ==
PROVIDERS: PCP Family Medicine; Referring Provider Family Medicine; Visit Provider Family Medicine
DX: D64.9 Anemia, unspecified (principal)
CPT/HCPCS: 82270

== ENCOUNTER → 2020-08-31 12:41 | Outpatient (CLI) | payer MEDICARE, OTHER, SELFPAY ==
[2020-08-19 10:23] VITALS: BMI 25.6
--- NOTE | 2020-08-31 12:47 | DI.CT.S_ITS ---
PROCEDURE: CT KIDNEY URETER BLADDER (KUB) INDICATIONS: Hydronephrosis TECHNIQUE: Noncontrast 5 mm thick sections acquired from the diaphragms to the symphysis. 5 mm thick coronal and sagittal reformats were then performed. For radiation dose reduction, the following was used: automated exposure control, adjustment of mA and/or kV according to patient size. COMPARISON: [facility], CT, CT CHEST WO CON, 01/27/2020, 8:41. [facility], CT, CT CHEST WITHOUT CONTRAST, 05/10/2020, 23:51. FINDINGS: Image quality: Excellent. Lung bases: Emphysematous change is noted in the right lung base. There are 3 focal ill-defined somewhat spiculated nodular densities in the extreme right lung base. On image 2/3 is a 1.2 cm right lower lobe nodule. On image 4/3 is a 1.4 cm right lower lobe nodule. On image 10/3 is a 1.4 cm right lower lobe pulmonary nodule.. Heart size is normal. Significant coronary artery calcifications. Mild cardiomegaly. Urinary system: Right kidney: No stones or hydronephrosis. Right ureter: Unremarkable Left kidney: Mild hydronephrosis. No stone identified. Left ureter: Large extrarenal pelvis, probable UPJ obstruction. Distal to the UPJ obstruction, the ureter is normal caliber. Bladder: Mild bladder wall thickening. Enlarged prostate. Other solid organs: Liver is normal in size. Gallbladder is unremarkable. Pancreas is normal in contours. Spleen is normal in size. No adrenal nodules. Peritoneum and bowel: Unenhanced bowel loops demonstrate normal wall thickness and caliber. No free fluid or air. Nodes and vessels: No retroperitoneal or mesenteric adenopathy by size criteria. Aorta and inferior vena cava are normal in caliber. Extensive aortic and bilateral iliac atherosclerotic calcifications. Abdominal wall: No ventral hernias. Pelvis: No free pelvic fluid. No inguinal hernias or adenopathy. Nondistended left testicle. Bones: No suspicious bony lesions. No vertebral body compression fractures. IMPRESSION: 1. Pulmonary emphysema. 2. There are 3 focal ill-defined pulmonary nodules in the imaged portion of the right lower lobe. These have developed since prior studies, and may potentially represent malignant disease. 3. Coronary atherosclerotic calcifications, mild cardiomegaly. 4. 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 5. Enlarged prostate, probable bladder outlet obstruction, with mild bladder wall thickening. 6. Nondistended left testicle. Dictated by: Abdulaziz Morales M.D. on 08/31/2020 at 15:10 Approved by: Abdulaziz Morales M.D. on 08/31/2020 at 15:26
== END ==
PROVIDERS: PCP Family Medicine; Referring Provider Specialist; Visit Provider Specialist
DX: N13.30 Unspecified hydronephrosis (principal); J43.9 Emphysema, unspecified; R91.8 Other nonspecific abnormal finding of lung field; I25.10 Atherosclerotic heart disease of native coronary artery without angina pectoris; I51.7 Cardiomegaly; N40.0 Benign prostatic hyperplasia without lower urinary tract symptoms
CPT/HCPCS: 74176

== ENCOUNTER → 2020-09-01 09:24 | Outpatient (CLI) | payer MEDICARE, OTHER, SELFPAY ==
[2020-08-19 10:23] VITALS: BMI 25.6
[2020-09-01 10:00] LABS: COVID19 -Nasal RAPID Negative (Negative)
== END ==
PROVIDERS: PCP Family Medicine; Visit Provider Specialist
DX: Z20.822 Contact with and (suspected) exposure to COVID-19 (principal)
CPT/HCPCS: 87635; C9803

== ENCOUNTER 2020-09-03 06:51 | Day surgery (SDC) | payer MEDICARE, OTHER, SELFPAY ==
[2020-08-19 10:23] VITALS: BMI 25.6
[2020-09-03] VITALS (11 sets, daily range): BP systolic 94–127; BP diastolic 34–71; PULSE 45–56; RESP 12–20; TEMP 36.1–36.3; O2SAT 92–98; BMI 26.6
[2020-09-03] MEDS: LACTATED RINGERS 1,000 ML 42 ML IV (07:27)
[2020-09-03] MEDS: ALBUTEROL 2.5 MG/3 ML NEB (ADULT) INH (07:45)
--- NOTE | 2020-09-03 07:47 | PM.PREOP ---
Pre-operative Note Interval Note History & Physical reviewed/Exam performed by Physician: Yes Changes to H&P: No
[2020-09-03] MEDS: CEFAZOLIN 2 GM/100 ML FROZ.PIGGY IV (07:53)
--- NOTE | 2020-09-03 08:14 | SUR.OPER ---
Lithotomy on padded OR bed, head on pillow, arms secured on padded arm boards at <90 degrees abduction. Legs secured in padded yellow fins stirrups.
[2020-09-03] MEDS: IOPAMIDOL 15 ML VIAL INJ (08:18)
--- NOTE | 2020-09-03 08:42 | P.OP_ITS ---
Operative Date/Time/Diagnoses Date of procedure: 09/03/20 Time of procedure: 08:42 Pre-op diagnosis: Left hydronephrosis CKD Post-op diagnosis: same Procedure & Clinicians Procedure: 1. Cystoscopy and bilateral retrograde pyelograms Same procedure as scheduled: Yes Indications: 1. Left hydronephrosis 2. CKD Surgeon: Eamon Maldonado Click Yes if Unassisted: Yes Anesthesia Type: General Operative Notes Findings: 1. Urethra-normal caliber without lesion or stricture. 2. External sphincter-coapted with normal overlying urothelium. 3. Prostate-approximately 4 cm length with moderate lateral lobe hyperplasia and elevated median bar. Urothelium had no evidence of suspicious features. 4. Bladder-2+ trabeculation with cellule formation. Normal ureteral orifices bilaterally with clear efflux. No evidence of stone, tumor, or foreign body. 5. Right upper collecting system-normal, discrete, and delicate calices. No evidence of stone, filling defect, stricture, or delayed emptying. 6. Left upper collecting system-the intrarenal calices are mild to moderately dilated intrarenal calices. The renal pelvis is intrarenal and compact. There is a area of tortuosity of the proximal ureter suggestive of a crossing vessel. There is no filling defect, stone, or stricture seen. The system drained well on delayed images. Closure Type: not applicable Specimen(s): none sent Estimated Blood Loss (mL): 0 Blood products transfused: none Tourniquet time (min): 0 Procedure in detail: Patient was positioned in supine and was administered general anesthesia. He was repositioned in semilithotomy and the lower abdomen, genitalia, groin were prepped and draped in sterile fashion. Twenty-two Tanzanian panendoscope was then inserted lower urinary tract with the findings as described above. A 5 [place] whistle-tip catheter was then utilized to perform bilateral retrograde pyelography with intraoperative still images and fluoroscopy with the findings as described above. The bladder was then drained completely and all instrumentation was removed. The patient was then repositioned supine, awakened, and transferred to a [place] for transfer to PACU. Post-operative Condition: stable Disposition: PACU Plan for aftercare: Discharge home
== END 2020-09-03 10:19 | disposition home or self-care (01) ==
PROVIDERS: PCP Family Medicine; Referring Provider Specialist; Visit Provider Specialist
PROC: (CPT 52005; principal; 2020-09-03 07:45)
DX: N13.30 Unspecified hydronephrosis (principal); I12.9 Hypertensive chronic kidney disease with stage 1 through stage 4 chronic kidney disease, or unspecified chronic kidney disease; N18.31 Chronic kidney disease, stage 3a; J44.9 Chronic obstructive pulmonary disease, unspecified; F17.210 Nicotine dependence, cigarettes, uncomplicated; E78.5 Hyperlipidemia, unspecified; N40.1 Benign prostatic hyperplasia with lower urinary tract symptoms; R33.9 Retention of urine, unspecified; Z85.118 Personal history of other malignant neoplasm of bronchus and lung; Z86.73 Personal history of transient ischemic attack (TIA), and cerebral infarction without residual deficits; I73.9 Peripheral vascular disease, unspecified; D53.9 Nutritional anemia, unspecified
CPT/HCPCS: 52005; J0690; J1100; J2250; J2405; J2704; J3010; J7613

== ENCOUNTER → 2020-09-08 13:21 | Outpatient (CLI) | payer MEDICARE, OTHER, SELFPAY ==
[2020-09-06 10:01] VITALS: BMI 25.6
--- NOTE | 2020-09-08 13:23 | DI.NM.S_ITS ---
PROCEDURE: NM RENAL FUNCTION W LASIX RADIOPHARMACEUTICAL: 10.2 mCi Tc-99m MAG3 IV and 40 mg furosemide IV. INDICATIONS: hydronephrosis TECHNIQUE: The patient was hydrated orally before the examination was begun. After intravenous administration of Tc-99m MAG3, posterior abdominal radionuclide angiogram and sequential (1 minute each frame) renal images were obtained. A time-activity curve for each kidney was generated and analyzed. To evaluate for obstruction, the patient was given 40 mg furosemide via slow intravenous injection after the start of the examination. Sequential images were obtained for up to an additional 20 minutes. COMPARISON: [facility], CT, CT KIDNEY URETER BLADDER (KUB), 08/31/2020, 12:48. FINDINGS: Perfusion: There is normal vascular flow to both kidneys. Morphology: Both kidneys are normal in size and shape. No dilated collecting systems are seen. The ureters and bladder fill with tracer, and appear normal. Function: Both kidneys demonstrate delayed cortical tracer uptake, with [id number] activity of 12 minutes for the left and 13 minutes for the right kidney. The right kidney contributes 58 % of total renal function. The left kidney contributes 42 % of total renal function. Lasix stimulation: After diuretic administration, there is prompt clearance of tracer activity from the renal collecting systems in both kidneys. The half-time of emptying of tracer activity from the right pelvicaliceal system is 17 minutes. The half-time of emptying from the left pelvicaliceal system is 19 minutes. Normal emptying half-times are less than 10 minutes; borderline ranges are from 10 to 20 minutes. IMPRESSION: 1. Diminished perfusion of the bilateral kidneys. 2. Borderline delayed bilateral renal emptying. Dictated by: Zhen Keene M.D. on 09/08/2020 at 14:54 Approved by: Zhen Keene M.D. on 09/08/2020 at 14:58
--- NOTE | 2020-09-08 14:31 | DI.CT.S_ITS ---
PROCEDURE: CT CHEST WO CON INDICATIONS: lung cancer, now with new right lung nodules on KUB CT TECHNIQUE: Noncontrast 5 mm thick sections acquired from the pulmonary apices to the posterior costophrenic angles. 1 mm lung window, 5 mm thick coronal and sagittal and 7 mm axial MIP reformats were then acquired. For radiation dose reduction, the following was used: automated exposure control, adjustment of mA and/or kV according to patient size. COMPARISON: [facility], CT, CT CHEST WITHOUT CONTRAST, 05/10/2020, 23:51. [facility], NM, NM PET CT FUSION SKULL 2 THIGH, 03/10/2020, 14:48. [facility], CT, CT CHEST WO CON, 01/27/2020, 8:41. FINDINGS: Image quality: Excellent. Lungs and pleura: Again noted is evidence of partial pulmonary resection on the right. There is a very minimal apical pneumothorax on the right, significantly improved. A right lower lobe pulmonary nodule has developed, measuring 1.2 cm. Reference image 235/3. Additionally, multiple nodular opacities have developed in the medial basilar portion of the right lower lobe, at the as ago esophageal recess. These include a nodular opacity measuring 1.7 cm and image 259/3, a 2nd nodular opacity on image 263/3 measuring 1.4 cm, and a nodular opacity on image 245/3 measuring 1.3 cm. These are in an area of patchy airspace opacity. There is also patchy infiltrate in the right lower lobe on image 221/3. Moderate centrilobular emphysema. No left-sided pulmonary nodules. Mediastinum: Heart size is normal. No pericardial effusion. Severe coronary artery calcifications. No mediastinal adenopathy by size criteria. A mildly prominent right paratracheal lymph node on image 22/2 measures 1.4 x 1.6 cm. It is minimally increased in size, but may be reactive. Thoracic aorta and central pulmonary arteries are normal in size. Esophagus is normal in caliber. No hiatal hernia. Bones and chest wall: No suspicious bony lesions. No vertebral body compression fractures. No axillary or supraclavicular adenopathy by size criteria. Thyroid gland is unremarkable. Abdomen: Visualized upper abdominal solid organs and bowel loops appear normal in the absence of contrast. IMPRESSION: 1. No evidence of recurrent disease in the right apex. Very minimal residual loculated right apical pneumothorax. 2. Centrilobular emphysema. 3. Patchy air space disease in the right lower lobe. 4. Multiple right lower lobe pulmonary nodules and nodular opacities have developed. These are of uncertain etiology. They may potentially be metastatic lesions or lesions related to infection or combination of both. Recommend short-term CT follow-up, perhaps in 2-3 months. 5. Advanced coronary artery disease. Dictated by: Abdulaziz Morales M.D. on 09/08/2020 at 15:40 Approved by: Abdulaziz Morales M.D. on 09/08/2020 at 15:52
== END ==
PROVIDERS: PCP Family Medicine; Referring Provider Specialist; Visit Provider Specialist
DX: C34.91 Malignant neoplasm of unspecified part of right bronchus or lung (principal); R91.8 Other nonspecific abnormal finding of lung field; J43.2 Centrilobular emphysema; N13.30 Unspecified hydronephrosis
CPT/HCPCS: 71250; 78708; A9562

== ENCOUNTER 2020-09-27 13:35 | Emergency (ER) | payer MEDICARE, OTHER, SELFPAY ==
[2020-09-06 10:01] VITALS: BMI 25.6
[2020-09-27] VITALS (78 sets, daily range): BP systolic 118–164; BP diastolic 56–76; PULSE 35–56; RESP 11–31; TEMP 35.6; O2SAT 94–99; BMI 26.3
--- NOTE | 2020-09-27 13:46 | DI.RAD.S_ITS ---
PROCEDURE: XR CHEST 1V INDICATIONS: chest pain TECHNIQUE: One view of the chest was acquired. COMPARISON: [facility], CR, XR CHEST 1V, 09/12/2019, 10:51. FINDINGS: Surgical changes and devices: None. Lungs and pleura: Trace blunting of the costophrenic angles. Pacer lead obscures evaluation of right upper lobe. Mild appearance of increased vascularity. Mediastinum: Mediastinal contours appear normal. Heart size is normal. Bones and chest wall: No suspicious bony lesions. Overlying soft tissues appear unremarkable. IMPRESSION: Mild appearance of increased vascularity suggestive of edema. Trace costophrenic angle blunting suggestive of scarring versus effusion. Dictated by: Simi Cassidy M.D. on 09/27/2020 at 14:30 Approved by: Simi Cassidy M.D. on 09/27/2020 at 14:31
--- NOTE | 2020-09-27 13:51 | ED.CHESTPAIN ---
HPI - Chest Pain General Chief Complaint: Chest Pain Stated Complaint: Brought Over By Nurse Time Seen by Provider: 09/27/20 13:43 Source: patient Mode of arrival: Ambulatory Limitations: no limitations History of Present Illness HPI narrative: Patient is an 84-year-old male from Oncology for bradycardia. He has been having some chest heaviness and pain, any chills like his legs are heavy and ankles are giving out ongoing for at least the last week. He states he was actually seen here to see Urology for hydronephrosis although he is being followed by oncology Dr. Rush for pulmonary mass he had a bronchoscopy by Dr. Dewey in April of 2020. His biggest complaints today are his ankles he states that they hurt and whenever he walks he feels like he is drunk. He denies any dizziness lightheadedness or syncope. He is a bit difficult to get information and history from. Previous EKGs show a normal sinus rhythm currently this rhythm appears junctional and bradycardic. He denies any chest pain or shortness of breath no fever. Related Data Home Medications Medication Instructions Recorded Confirmed mecobalamin (vitamin B12) 1,000 1,000 mcg PO DAILY 08/24/20 09/03/20 mcg chewable tablet Previous Rx's Medication Instructions Recorded multivitamin [Tab-A-Iqra] 1 tab PO DAILY #30 tab 09/14/19 thiamine HCl (vitamin B1) [Vitamin 100 mg PO DAILY #30 tab 09/14/19 B-1] amlodipine 5 mg tablet 5 mg PO BID #180 tab 01/23/20 rosuvastatin 10 mg tablet 5 mg PO DAILY #45 tab 01/23/20 fluticasone furoate 200 1 inhalation INHALATION DAILY #60 03/05/20 mcg-vilanterol 25 mcg/dose each inhalation powder umeclidinium 62.5 mcg/actuation 62.5 mcg INHALATION QDAY #1 inh 03/05/20 blister powder for inhalation albuterol sulfate 90 mcg/actuation 2 puff INHALATION Q4H PRN #1 05/31/20 aerosol inhaler inhalation ciprofloxacin HCl 250 mg tablet 250 mg PO BID #28 tab 08/15/20 finasteride 5 mg tablet 5 mg PO DAILY #30 tab 08/19/20 tamsulosin 0.4 mg capsule 0.8 mg PO DAILY #60 cap 08/19/20 Allergies Allergy/AdvReac Type Severity Reaction Status Date / Time No Known Drug Allergies Allergy Unknown Verified 09/03/20 06:51 Review of Systems Review of Systems ROS Unobtainable: All systems reviewed & are unremarkable except as noted in HPI and below Constitutional Constitutional: Denies chills, Denies fever(s), Denies lethargy and Denies weakness Eyes Eyes: Denies change in vision, Denies eye discharge, Denies irritation and Denies loss of vision ENT Ears, Nose, Mouth, and Throat: Denies dizziness Cardiovascular Cardiovascular: Reports as per HPI, Denies dyspnea and Reports dyspnea on exertion Respiratory Respiratory: Denies cough, Denies dyspnea, Reports dyspnea on exertion and Denies wheezing Gastrointestinal Gastrointestinal: Denies abdominal pain, Denies change in bowel habits, Denies diarrhea, Denies nausea and Denies vomiting Integumentary/Breasts Skin/Breast: Denies pruritus, Denies erythema, Denies rash and Denies wounds Neurologic Neurologic: Denies dizziness, Denies loss of vision and Denies weakness Allergic/Immunologic Allergic/Immunologic: Denies wheezing Patient History Medical History Adenocarcinoma of right lung, stage 1 (~05/10/20) Anemia Benign prostatic hyperplasia (01/29/12) Bradycardia Cellulitis Centrilobular emphysema (12/13/16) Cholesteatoma (09/10/12) Chronic kidney disease (CKD) stage G3a/A1, moderately decreased glomerular filtration rate (GFR) between 45-59 mL/min/1.73 square meter and albuminuria creatinine ratio less than 30 mg/g COPD (chronic obstructive pulmonary disease) Hemorrhagic cerebrovascular accident (CVA) (~2006) Hydronephrosis, left Hyperlipidemia Hypertension Lung cancer Macrocytic anemia (07/06/16) Mild alcohol abuse (03/26/15) Olecranon bursitis Peripheral vascular disease of foot (05/31/17) Sinusitis Stenosis of left femoral artery Stroke Substance abuse Syncope Syncope and collapse (09/10/12) Tobacco use disorder, continuous (09/10/12) Transient cerebral ischemia (04/23/12) Traumatic compression fracture of seventh thoracic vertebra, sequela (10/09/16) Tubular adenoma Urinary retention Surgical History History of carpal tunnel repair (03/02/15) History of cataract removal with insertion of prosthetic lens (02/16/15) History of cataract removal with insertion of prosthetic lens (03/09/15) History of tonsillectomy Status post appendectomy Status post colonoscopy (10/06/09) Status post lobectomy of lung (~04/2020) Status post repair of hydrocele (05/22/11) Family History Brother Lung cancer Father Lung cancer Mother Migraines Social History marital status: number of children: 2 household members: spouse Smoking Status: Current every day smoker Tobacco: How many years used: 69 quit status: considering quitting alcohol intake: current caffeine: Yes Smoking Status: Current every day smoker alcohol intake frequency: 3 or more drinks per day Substance Use Type: does not use Exam Initial Vital Signs Initial Vital Signs: Vital Signs Temperature 96.0 F L 09/27/20 13:35 Pulse Rate 36 L 09/27/20 13:35 Respiratory Rate 22 09/27/20 13:35 Blood Pressure 118/56 L 09/27/20 13:35 Pulse Oximetry 98 09/27/20 13:35 GENERAL: Alert 84-year-old male and in no acute distress. HEENT: Head atraumatic,EOMI, pupils reactive, face symmetric, moist mucous membranes CARDIOVASCULAR: Bradycardic regular RESPIRATORY: Breath sounds equal bilaterally, no wheezes rales or rhonchi. ABDOMEN: Soft, nontender. Normoactive bowel sounds all 4 quadrants. No guarding or rebound. EXTREMITIES: Normal range of motion, no clubbing or edema. Neurovascularly intact NEUROLOGICAL: Alert and oriented x4.Normal gait and speech. SKIN: Warm, dry, no laceration, no petechiae, no rashes or lesions. Course Orders Ordered: ED Orders 09/27/20 13:46 XR chest 1V Stat EKG-12 Lead Stat 09/27/20 13:57 BNP [NT-proBNP (BNP-Adult 18+)] Stat Complete Blood Count AUTO DIFF Stat Comprehensive Metabolic Panel Stat Lipase Stat Magnesium Stat Partial Thromboplastin Time Stat Prothrombin Time INR Stat Troponin & CK Cardiac Panel Stat 09/27/20 14:15 COVID19 - ADMIT (UPHOLSTERY SEWER swab/PCR) Stat 09/27/20 16:16 Troponin & CK Cardiac Panel Stat Vital Signs Vital signs: Vital Signs - 8 hr 09/27/20 13:35 09/27/20 13:49 09/27/20 13:50 Temperature 96.0 F L Pulse Rate 36 L 38 L 39 L Respiratory Rate 22 20 20 Blood Pressure 118/56 L Pulse Oximetry 98 98 99 09/27/20 13:55 09/27/20 14:00 09/27/20 14:01 Temperature Pulse Rate 37 L 37 L 38 L Respiratory Rate 21 13 16 Blood Pressure 121/58 L Pulse Oximetry 98 98 98 09/27/20 14:05 09/27/20 14:10 09/27/20 14:15 Temperature Pulse Rate 37 L 37 L 37 L Respiratory Rate 26 H 25 H 21 Blood Pressure 123/59 L 127/62 Pulse Oximetry 98 98 96 09/27/20 14:20 09/27/20 14:25 09/27/20 14:30 Temperature Pulse Rate 37 L 35 L 35 L Respiratory Rate 22 16 19 Blood Pressure 119/58 L 118/59 L 118/59 L Pulse Oximetry 96 95 96 09/27/20 14:35 09/27/20 14:40 09/27/20 14:45 Temperature Pulse Rate 37 L 37 L 36 L Respiratory Rate 12 14 12 Blood Pressure 122/58 L 128/63 132/58 L Pulse Oximetry 96 97 96 09/27/20 14:50 09/27/20 14:55 09/27/20 14:56 Temperature Pulse Rate 37 L 37 L 37 L Respiratory Rate 13 13 13 Blood Pressure 128/62 138/63 Pulse Oximetry 96 97 95 09/27/20 15:00 09/27/20 15:05 09/27/20 15:10 Temperature Pulse Rate 37 L 38 L 42 L Respiratory Rate 17 13 19 Blood Pressure 128/60 138/60 154/70 H Pulse Oximetry 94 96 95 09/27/20 15:15 09/27/20 15:20 09/27/20 15:21 Temperature Pulse Rate 38 L 38 L 38 L Respiratory Rate 15 15 13 Blood Pressure 141/65 H 140/60 Pulse Oximetry 96 96 96 09/27/20 15:25 09/27/20 15:30 09/27/20 15:35 Temperature Pulse Rate 39 L 38 L 39 L Respiratory Rate 18 11 L 12 Blood Pressure 144/70 H 147/69 H 149/67 H Pulse Oximetry 96 96 95 09/27/20 15:40 09/27/20 15:45 09/27/20 15:50 Temperature Pulse Rate 39 L 39 L 39 L Respiratory Rate 12 13 18 Blood Pressure 141/66 H 143/67 H 143/76 H Pulse Oximetry 96 97 97 09/27/20 15:55 09/27/20 16:00 09/27/20 16:05 Temperature Pulse Rate 40 L 40 L 39 L Respiratory Rate 16 14 12 Blood Pressure 140/67 151/69 H 146/70 H Pulse Oximetry 96 97 97 09/27/20 16:10 09/27/20 16:15 09/27/20 16:20 Temperature Pulse Rate 40 L 40 L 40 L Respiratory Rate 15 22 11 L Blood Pressure 159/66 H 146/67 H 153/70 H Pulse Oximetry 96 98 98 09/27/20 16:25 09/27/20 16:26 09/27/20 16:30 Temperature Pulse Rate 41 L 41 L 45 L Respiratory Rate 17 13 20 Blood Pressure 153/66 H Pulse Oximetry 96 97 97 09/27/20 16:31 09/27/20 16:35 09/27/20 16:40 Temperature Pulse Rate 44 L 40 L 41 L Respiratory Rate 22 21 14 Blood Pressure 152/72 H 154/68 H 151/74 H Pulse Oximetry 96 97 97 09/27/20 16:45 09/27/20 16:50 09/27/20 16:55 Temperature Pulse Rate 42 L 45 L 43 L Respiratory Rate 14 23 17 Blood Pressure 149/72 H 148/67 H 150/69 H Pulse Oximetry 98 98 97 09/27/20 17:00 09/27/20 17:05 09/27/20 17:10 Temperature Pulse Rate 41 L 41 L 41 L Respiratory Rate 20 13 14 Blood Pressure 148/68 H 147/66 H 155/74 H Pulse Oximetry 95 96 96 09/27/20 17:15 09/27/20 17:16 09/27/20 17:20 Temperature Pulse Rate 40 L 46 L 42 L Respiratory Rate 20 20 30 H Blood Pressure 156/67 H Pulse Oximetry 96 95 95 09/27/20 17:21 09/27/20 17:25 09/27/20 17:30 Temperature Pulse Rate 42 L 41 L 42 L Respiratory Rate 31 H 28 H 20 Blood Pressure 155/71 H 159/72 H 159/74 H Pulse Oximetry 95 97 98 09/27/20 17:35 09/27/20 17:36 09/27/20 17:40 Temperature Pulse Rate 42 L 42 L 43 L Respiratory Rate 28 H 20 18 Blood Pressure 161/70 H 164/72 H Pulse Oximetry 97 96 97 09/27/20 17:45 09/27/20 17:50 09/27/20 17:55 Temperature Pulse Rate 44 L 43 L 42 L Respiratory Rate 19 21 25 H Blood Pressure 158/72 H 154/68 H 153/72 H Pulse Oximetry 98 96 97 09/27/20 18:00 09/27/20 18:05 09/27/20 18:06 Temperature Pulse Rate 42 L 42 L 42 L Respiratory Rate 22 21 20 Blood Pressure 164/70 H Pulse Oximetry 96 97 96 09/27/20 18:10 09/27/20 18:11 09/27/20 18:15 Temperature Pulse Rate 42 L 42 L 42 L Respiratory Rate 23 20 24 Blood Pressure 160/73 H 153/70 H Pulse Oximetry 96 96 96 09/27/20 18:20 09/27/20 18:25 09/27/20 18:30 Temperature Pulse Rate 42 L 43 L 42 L Respiratory Rate 27 H 19 21 Blood Pressure 152/73 H 159/74 H 154/71 H Pulse Oximetry 97 97 97 09/27/20 18:35 09/27/20 18:40 09/27/20 18:41 Temperature Pulse Rate 42 L 45 L 47 L Respiratory Rate 15 29 H 27 H Blood Pressure 156/71 H 157/74 H Pulse Oximetry 96 95 95 09/27/20 18:45 09/27/20 18:50 09/27/20 18:55 Temperature Pulse Rate 44 L 45 L 43 L Respiratory Rate 20 15 24 Blood Pressure 153/66 H 157/72 H 159/74 H Pulse Oximetry 96 95 97 09/27/20 19:00 09/27/20 19:05 09/27/20 19:10 Temperature Pulse Rate 43 L 43 L 56 L Respiratory Rate 19 18 30 H Blood Pressure 154/74 H 162/76 H Pulse Oximetry 96 97 MDM - Chest Pain Lab Data Attestation: I reviewed the patient's lab results. Result diagrams: 09/27/20 13:57 09/27/20 13:57 Labs: Lab Results 09/27/20 09/27/20 09/27/20 Range/Units 13:57 13:57 13:57 WBC 3.9 L (4.5-11.0) X10^3/uL RBC 2.75 L (4.5-5.9) X10^6/uL Hgb 10.1 L (13.5-17.5) g/dL Hct 29.6 L (41-53) % MCV 107.5 H (80-100) fL MCH 36.8 H (26-34) PG MCHC 34.2 (30-36) % RDW 16.6 H (11.6-14.8) % Plt Count 176 (150-400) X10^3/uL Neut % (Auto) 57.9 (50-75) % Lymph % (Auto) 27.7 (25-40) % Sterling % (Auto) 12.5 (3-14) % Eos % (Auto) 0.9 L (2-4) % Baso % (Auto) 1.0 (0-2) % Neut # (Auto) 2300 (0290-2611) /uL Lymph # (Auto) 1100 (4643-5959) /uL Sterling # (Auto) 500 (0-900) /uL Eos # (Auto) 0 (0-450) /uL Baso # (Auto) 0 (0-100) /uL PT 10.8 (10.1-12.7) SECONDS INR 1.0 (0.9-1.3) APTT 45 H (26.4-36.2) SECONDS Sodium 139 (137-145) mmol/L Potassium 4.8 (3.4-5.1) mmol/L Chloride 104 (98-107) mmol/L Carbon Dioxide 30 (22-32) mmol/L BUN 52 H (9-20) mg/dL Creatinine 1.88 H (0.66-1.25) mg/dL Estimated GFR 34.5 L (>60) mL/min BUN/Creatinine Ratio 27.7 H (6-22) Glucose 113 H (80-110) mg/dL Calcium 9.9 (8.4-10.2) mg/dL Magnesium (1.6-2.3) mg/dL Total Bilirubin 0.3 (0.2-1.3) mg/dL AST 63 H (17-59) IU/L ALT 56 H (<50) IU/L Alkaline Phosphatase 117 (38-126) U/L Total Creatine Kinase 141 (55-170) U/L CK-MB (CK-2) 9.66 H (<2.37) ng/mL CK-MB (CK-2) Rel Index 6.9 H* (1.5-5.0) % Troponin I < 0.012 (0.01-0.034) ng/mL NT-Pro-B Natriuret Pep (<450) pg/mL Total Protein 7.1 (6.3-8.2) g/dL Albumin 4.2 (3.5-5.0) g/dL Globulin 2.9 (1.7-4.1) g/dL Albumin/Globulin Ratio 1.4 (1.0-2.8) Lipase 76 (23-300) U/L SARS-CoV-2 (PCR) (Negative) 09/27/20 09/27/20 09/27/20 Range/Units 13:57 14:15 16:16 WBC (4.5-11.0) X10^3/uL RBC (4.5-5.9) X10^6/uL Hgb (13.5-17.5) g/dL Hct (41-53) % MCV (80-100) fL MCH (26-34) PG MCHC (30-36) % RDW (11.6-14.8) % Plt Count (150-400) X10^3/uL Neut % (Auto) (50-75) % Lymph % (Auto) (25-40) % Sterling % (Auto) (3-14) % Eos % (Auto) (2-4) % Baso % (Auto) (0-2) % Neut # (Auto) (4333-7862) /uL Lymph # (Auto) (6341-3682) /uL Sterling # (Auto) (0-900) /uL Eos # (Auto) (0-450) /uL Baso # (Auto) (0-100) /uL PT (10.1-12.7) SECONDS INR (0.9-1.3) APTT (26.4-36.2) SECONDS Sodium (137-145) mmol/L Potassium (3.4-5.1) mmol/L Chloride (98-107) mmol/L Carbon Dioxide (22-32) mmol/L BUN (9-20) mg/dL Creatinine (0.66-1.25) mg/dL Estimated GFR (>60) mL/min BUN/Creatinine Ratio (6-22) Glucose (80-110) mg/dL Calcium (8.4-10.2) mg/dL Magnesium 2.2 (1.6-2.3) mg/dL Total Bilirubin (0.2-1.3) mg/dL AST (17-59) IU/L ALT (<50) IU/L Alkaline Phosphatase (38-126) U/L Total Creatine Kinase 120 (55-170) U/L CK-MB (CK-2) 8.28 H (<2.37) ng/mL CK-MB (CK-2) Rel Index 6.9 H* (1.5-5.0) % Troponin I < 0.012 (0.01-0.034) ng/mL NT-Pro-B Natriuret Pep 456 H (<450) pg/mL Total Protein (6.3-8.2) g/dL Albumin (3.5-5.0) g/dL Globulin (1.7-4.1) g/dL Albumin/Globulin Ratio (1.0-2.8) Lipase (23-300) U/L SARS-CoV-2 (PCR) Negative (Negative) Imaging Data Chest x-ray: Radiologist's Impression: PROCEDURE: XR CHEST 1V INDICATIONS: chest pain TECHNIQUE: One view of the chest was acquired. COMPARISON: [facility], CR, XR CHEST 1V, 09/12/2019, 10:51. FINDINGS: Surgical changes and devices: None. Lungs and pleura: Trace blunting of the costophrenic angles. Pacer lead obscures evaluation of right upper lobe. Mild appearance of increased vascularity. Mediastinum: Mediastinal contours appear normal. Heart size is normal. Bones and chest wall: No suspicious bony lesions. Overlying soft tissues appear unremarkable. IMPRESSION: Mild appearance of increased vascularity suggestive of edema. Trace costophrenic angle blunting suggestive of scarring versus effusion. Dictated by: Simi Cassidy M.D. on 09/27/2020 at 14:3 ECG Data Attestation: I personally reviewed and interpreted this ECG as follows: Prior ECG tracings: available for review Interpretation: Junctional rhythm rate 39 no P-waves noted no ST changes different from previous EKG MDM Narrative Medical decision making narrative: The patient remains awake alert and see the relatively asymptomatic while sitting the emergency department with a heart rate of 35. 1450 Dr. Shields cardio at [facility] states patient likely needs a pacemaker he will contact their electro screw machine tender. Aware of elevated CKMB 1541 Dr. Shields called and recommends patient be discharged with outpatient cardiology follow-up The patient's heart rate has dropped as low as 27 and is is as high as 43. At this time I do not believe discharged to be an appropriate plan of care for this gentleman. [facility] unfortunately does not have any beds for transfer. 1655 Dr. Silveira, cardiology at [facility] agrees with transfer but recommends admitting to hospitalist 1730 Dr Lewis hospitalist updated on patient's symptoms test results cardiology is recommendations at this time he agrees with transfer and happily accepted Discharge Plan Departure Patient Disposition: [facility] Clinical Impression: Junctional bradycardia Prescriptions: No Action fluticasone furoate-vilanterol 200-25 mcg/dose blister with device 1 inhalation INHALATION DAILY Qty: 60 RF: 6 Incruse Ellipta 62.5 mcg/actuation blister with device 62.5 mcg INHALATION QDAY Qty: 1 RF: 5 albuterol sulfate 90 mcg/actuation HFA aerosol inhaler 2 puff INHALATION Q4H PRN (Reason: shortness of breath or wheezing) Qty: 1 RF: 2 ciprofloxacin HCl 250 mg tablet 250 mg PO BID Qty: 28 RF: 0 finasteride 5 mg tablet 5 mg PO DAILY Qty: 30 RF: 0 tamsulosin 0.4 mg capsule 0.8 mg PO DAILY Qty: 60 RF: 0 rosuvastatin 10 mg tablet 5 mg PO DAILY Qty: 45 RF: 1 amlodipine [Norvasc] 5 mg tablet 5 mg PO BID Qty: 180 RF: 3 multivitamin [Tab-A-Iqra] Tablet 1 tab PO DAILY Qty: 30 RF: 0 thiamine HCl (vitamin B1) [Vitamin B-1] 100 mg Tablet 100 mg PO DAILY Qty: 30 RF: 0 B12 Active 1,000 mcg tablet,chewable 1,000 mcg PO DAILY RF: 0 Referrals: Navya Rodriguez DO [Primary Care Provider] -
[2020-09-27 14:12] LABS: Add Manual Diff / Slide Review NO; Basophils Absolute Auto 0 /uL (0-100); Eosinophils Absolute Auto 0 /uL (0-450); Eosinophils Percent Auto 0.9 % (2-4); Hematocrit 29.6 % (41-53); Hemoglobin 10.1 g/dL (13.5-17.5); Lymphocytes Absolute Auto 1100 /uL (1100-4500); Lymphocytes Percent Auto 27.7 % (25-40); Mean Corpuscular HGB Conc 34.2 % (30-36); Mean Corpuscular Hemoglobin 36.8 PG (26-34); Mean Corpuscular Volume 107.5 fL (80-100); Monocytes Absolute Auto 500 /uL (0-900); Monocytes Percent Auto 12.5 % (3-14); Neutrophils Absolute Auto 2300 /uL (1500-7000); Neutrophils Percent Auto 57.9 % (50-75); Platelet Count 176 X10^3/uL (150-400); Red Blood Cell Count 2.75 X10^6/uL (4.5-5.9); Red Cell Distribution Width 16.6 % (11.6-14.8); White Blood Cell Count 3.9 X10^3/uL (4.5-11.0)
[2020-09-27 14:20] LABS: Prothrombin Time 10.8 SECONDS (10.1-12.7)
--- NOTE | 2020-09-27 14:20 | PC.NURSE ---
patient reports feeling low energy for about a month. 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 today he went to a oncology appointment and his heart rate discovered to be in the 30s and 40s he states his feet feel very heavy. He is alert and oriented x4. appears to be a heavy smoker, his fingers are tobacco stained and the odor of ciggarettes is heavy. he admits to heavy smoking. Bilateral Iv's placed, khanhnet on cardiac rehabilitation specialist and the lif[place] pads are in place.
[2020-09-27 14:23] LABS: PTT Partial Thromboplastin Tim 45 SECONDS (26.4-36.2)
[2020-09-27 14:25] LABS: Alanine Aminotransferase 56 IU/L (<50); Albumin 4.2 g/dL (3.5-5.0); Albumin Globulin Ratio 1.4 (1.0-2.8); Alkaline Phosphatase 117 U/L (38-126); Aspartate Aminotransferase 63 IU/L (17-59); BUN Creatinine Ratio 27.7 (6-22); Bilirubin Total 0.3 mg/dL (0.2-1.3); Blood Urea Nitrogen 52 mg/dL (9-20); Calcium 9.9 mg/dL (8.4-10.2); Carbon Dioxide 30 mmol/L (22-32); Chloride 104 mmol/L (98-107); Creatine Kinase 141 U/L (55-170); Estimated Glomerular Filt Rate 34.5 mL/min (>60); Globulin 2.9 g/dL (1.7-4.1); Glucose 113 mg/dL (80-110); HEMOLYSIS < 15 (0-50); Lipase 76 U/L (23-300); Potassium 4.8 mmol/L (3.4-5.1); Sodium 139 mmol/L (137-145); Total Protein 7.1 g/dL (6.3-8.2)
[2020-09-27 14:26] LABS: Magnesium 2.2 mg/dL (1.6-2.3)
[2020-09-27 14:34] LABS: NT-proBNP (BNP-Adult 18+) 456 pg/mL (<450)
[2020-09-27 14:36] LABS: Troponin I < 0.012 ng/mL (0.01-0.034)
[2020-09-27 14:41] LABS: Creatine Kinase MB 9.66 ng/mL (<2.37)
[2020-09-27 14:42] LABS: CKMB % Relative Index 6.9 % (1.5-5.0)
[2020-09-27 15:48] LABS: COVID19 - ADMIT (NP swab/PCR) Negative (Negative)
[2020-09-27 16:32] LABS: Creatine Kinase 120 U/L (55-170)
[2020-09-27 16:44] LABS: Troponin I < 0.012 ng/mL (0.01-0.034)
[2020-09-27 16:47] LABS: Creatine Kinase MB 8.28 ng/mL (<2.37)
[2020-09-27 16:49] LABS: CKMB % Relative Index 6.9 % (1.5-5.0)
== END 2020-09-27 19:37 | disposition short-term general hospital (02) ==
PROVIDERS: Emergency Provider Emergency Medicine; PCP Family Medicine
DX: R00.1 Bradycardia, unspecified (principal); R07.9 Chest pain, unspecified; Z20.822 Contact with and (suspected) exposure to COVID-19
CPT/HCPCS: 36415; 71045; 80053; 82550; 82553; 83690; 83735; 83880; 84484; 85025; 85610; 85730; 87635; 93005; 93010; 99284

== ENCOUNTER → 2020-10-08 13:07 | Outpatient (CLI) | payer MEDICARE, OTHER, SELFPAY ==
[2020-09-06 10:01] VITALS: BMI 25.6
--- NOTE | 2020-10-08 13:09 | DI.RAD.S_ITS ---
PROCEDURE: XR CHEST 2V INDICATIONS: shortness of breath TECHNIQUE: 2 views of the chest were acquired. COMPARISON: [facility], CT, CT CHEST WO CON, 09/08/2020, 14:32. [facility], CR, XR CHEST 1V, 09/27/2020, 13:53. FINDINGS: Surgical changes and devices: None. Lungs and pleura: There are changes of chronic obstructive pulmonary physiology. New patchy ill-defined left basilar airspace opacities. Patchy right basilar opacities are also noted. Chronic appearing diffuse interstitial prominence. Likely small bilateral pleural effusions. No pneumothorax. No pleural effusions or pneumothorax. Mediastinum: Mediastinal contours are stable. Heart size is normal. Bones and chest wall: No suspicious bony abnormalities. Soft tissues appear unremarkable. IMPRESSION: Interval development of left basilar airspace opacities and increased right basilar opacities suggestive of multifocal pneumonia. Mild/early pulmonary edema not excluded if clinically appropriate. Recommend follow up chest radiograph 4-6 weeks after treatment to document resolution of findings and/or return to baseline examination. Dictated by: Johnson Little M.D. on 10/08/2020 at 13:52 Approved by: Johnson Little M.D. on 10/08/2020 at 13:57
[2020-10-08 13:44] LABS: Add Manual Diff / Slide Review NO; Basophils Absolute Auto 100 /uL (0-100); Basophils Percent Auto 2.1 % (0-2); Eosinophils Absolute Auto 100 /uL (0-450); Hemoglobin 8.6 g/dL (13.5-17.5); Lymphocytes Absolute Auto 800 /uL (1100-4500); Lymphocytes Percent Auto 13.8 % (25-40); Mean Corpuscular HGB Conc 32.7 % (30-36); Mean Corpuscular Hemoglobin 35.6 PG (26-34); Mean Corpuscular Volume 108.9 fL (80-100); Monocytes Absolute Auto 800 /uL (0-900); Monocytes Percent Auto 13.8 % (3-14); Neutrophils Absolute Auto 4100 /uL (1500-7000); Neutrophils Percent Auto 69.3 % (50-75); Platelet Count 385 X10^3/uL (150-400); Red Blood Cell Count 2.42 X10^6/uL (4.5-5.9); White Blood Cell Count 5.9 X10^3/uL (4.5-11.0)
[2020-10-08 13:46] LABS: Hematocrit 26.4 % (41-53)
[2020-10-08 14:01] LABS: BUN Creatinine Ratio 28.7 (6-22); Blood Urea Nitrogen 47 mg/dL (9-20); Calcium 9.6 mg/dL (8.4-10.2); Carbon Dioxide 32 mmol/L (22-32); Chloride 106 mmol/L (98-107); Estimated Glomerular Filt Rate 40.4 mL/min (>60); Glucose 146 mg/dL (80-110); HEMOLYSIS < 15 (0-50); Potassium 4.3 mmol/L (3.4-5.1); Sodium 143 mmol/L (137-145)
[2020-10-08 14:14] LABS: C-Reactive Protein Quant 13.3 mg/dL (<1.0)
[2020-10-08 14:48] LABS: NT-proBNP (BNP-Adult 18+) 929 pg/mL (<450)
== END ==
PROVIDERS: PCP Family Medicine; Referring Provider Family Medicine; Visit Provider Family Medicine
DX: J18.9 Pneumonia, unspecified organism (principal); R06.02 Shortness of breath
CPT/HCPCS: 36415; 71046; 80048; 83880; 85025; 86140

== ENCOUNTER 2020-10-08 16:31 | Inpatient (IN) | payer MEDICARE, OTHER, SELFPAY ==
[2020-09-06 10:01] VITALS: BMI 25.6
[2020-10-08] VITALS (18 sets, daily range): BP systolic 141–177; BP diastolic 64–73; PULSE 43–92; RESP 16–36; TEMP 36.2–36.8; O2SAT 88–100; BMI 25.8; BMI 25.0
[2020-10-08 18:03] LABS: INR 1.1 (0.9-1.3); Prothrombin Time 12.7 SECONDS (10.1-12.7)
[2020-10-08 18:05] LABS: Hematocrit 26.6 % (41-53); Hemoglobin 8.7 g/dL (13.5-17.5); Mean Corpuscular HGB Conc 32.7 % (30-36); Mean Corpuscular Hemoglobin 35.5 PG (26-34); Mean Corpuscular Volume 108.4 fL (80-100); Platelet Count 371 X10^3/uL (150-400); Red Blood Cell Count 2.45 X10^6/uL (4.5-5.9); White Blood Cell Count 6.1 X10^3/uL (4.5-11.0)
[2020-10-08 18:06] LABS: Add Manual Diff / Slide Review YES; PTT Partial Thromboplastin Tim 42 SECONDS (26.4-36.2)
[2020-10-08 18:11] LABS: Alanine Aminotransferase 48 IU/L (<50); Albumin 3.6 g/dL (3.5-5.0); Albumin Globulin Ratio 1.1 (1.0-2.8); Alkaline Phosphatase 119 U/L (38-126); Aspartate Aminotransferase 36 IU/L (17-59); BUN Creatinine Ratio 27.6 (6-22); Bilirubin Total 0.1 mg/dL (0.2-1.3); Blood Urea Nitrogen 42 mg/dL (9-20); Calcium 9.7 mg/dL (8.4-10.2); Carbon Dioxide 30 mmol/L (22-32); Chloride 106 mmol/L (98-107); Creatine Kinase 67 U/L (55-170); Estimated Glomerular Filt Rate 44.1 mL/min (>60); Globulin 3.3 g/dL (1.7-4.1); Glucose 89 mg/dL (80-110); HEMOLYSIS < 15 (0-50); Lactate (Lactic Acid) 1.3 mmol/L (0.7-2.1); Lipase 59 U/L (23-300); Potassium 4.2 mmol/L (3.4-5.1); Sodium 143 mmol/L (137-145); Total Protein 6.9 g/dL (6.3-8.2)
[2020-10-08 18:23] LABS: NT-proBNP (BNP-Adult 18+) 964 pg/mL (<450); Neutrophils Absolute Manual 3050 /uL (3000-5900); Nucleated Red Blood Cells 1 #/Diff; Total Cells Counted 100; Troponin I < 0.012 ng/mL (0.01-0.034)
[2020-10-08 18:24] LABS: Anisocytosis 1+
[2020-10-08 18:27] LABS: Procalcitonin 0.31 ng/mL (<0.5)
--- NOTE | 2020-10-08 18:49 | ED.RECABL ---
HPI - Recheck/Abnormal Lab/Rx General Chief Complaint: Recheck/Abnormal Lab/Rx Stated Complaint: states needs blood transfusion Time Seen by Provider: 10/08/20 18:06 Source: patient Mode of arrival: Ambulatory Limitations: no limitations History of Present Illness HPI narrative: Patient is an 84-year-old male. Was recently discharged from an outside facility after being transferred there from this emergency department for concerns of a symptomatic bradycardia potential need for pacemaker. He states that during that outside hospital visit he was seen by Cardiology and it was determined that he did not need a pacemaker. Patient states he was told that it was his ?underlying conditions ?that was causing his heart rate to be low. He was also diagnosed with pneumonia during that time. Was sent home and completed a 7 day course of antibiotics. He was at his primary doctor today as a follow-up from this when it was noted that he was hypoxic into the 70s upon exertion. Patient states that he also has had some shortness of breath over the past several days. No chest pain. He does state that he has been coughing up some pink colored sputum which he initially stated was ?blood? he denies any fevers. Had blood drawn today at his primary doctor's office and was found that he was anemic and he was sent to the emergency department for further evaluation. Related Data Home Medications Medication Instructions Recorded Confirmed mecobalamin (vitamin B12) 1,000 1,000 mcg PO DAILY 08/24/20 10/09/20 mcg chewable tablet Previous Rx's Medication Instructions Recorded multivitamin [Tab-A-Iqra] 1 tab PO DAILY #30 tab 09/14/19 thiamine HCl (vitamin B1) [Vitamin 100 mg PO DAILY #30 tab 09/14/19 B-1] amlodipine 5 mg tablet 5 mg PO BID #180 tab 01/23/20 rosuvastatin 10 mg tablet 5 mg PO DAILY #45 tab 01/23/20 fluticasone furoate 200 1 inhalation INHALATION DAILY #60 03/05/20 mcg-vilanterol 25 mcg/dose each inhalation powder umeclidinium 62.5 mcg/actuation 62.5 mcg INHALATION QDAY #1 inh 03/05/20 blister powder for inhalation albuterol sulfate 90 mcg/actuation 2 puff INHALATION Q4H PRN #1 05/31/20 aerosol inhaler inhalation tamsulosin 0.4 mg capsule 0.8 mg PO DAILY #60 cap 08/19/20 prednisone 20 mg tablet 40 mg PO DAILY 5 Days #10 tab 10/08/20 Allergies Allergy/AdvReac Type Severity Reaction Status Date / Time No Known Drug Allergies Allergy Unknown Verified 10/08/20 16:56 Review of Systems Constitutional Constitutional: Denies fever(s) and Denies headache(s) ENT Ears, Nose, Mouth, and Throat: Denies headache(s) Cardiovascular Cardiovascular: Denies chest pain, Reports dyspnea and Reports dyspnea on exertion Respiratory Respiratory: Reports cough, Reports excessive phlegm production, Denies pain with cough, Reports dyspnea and Reports dyspnea on exertion Gastrointestinal Gastrointestinal: Denies abdominal pain, Denies nausea and Denies vomiting Genitourinary Genitourinary: Denies dysuria Genitourinary: Denies dysuria Musculoskeletal Musculoskeletal: Denies arthralgias and Denies myalgias Integumentary/Breasts Skin/Breast: Denies lesions and Denies rash Neurologic Neurologic: Denies behavioral changes and Denies headache(s) Psychiatric Psychiatric: Denies behavioral changes Hematologic/Lymphatic On Anticoagulants: No Allergic/Immunologic Allergic/Immunologic: Denies urticaria Patient History Medical History Adenocarcinoma of right lung, stage 1 (~05/10/20) Anemia Benign prostatic hyperplasia (01/29/12) Bradycardia Cellulitis Centrilobular emphysema (12/13/16) Cholesteatoma (09/10/12) Chronic kidney disease (CKD) stage G3a/A1, moderately decreased glomerular filtration rate (GFR) between 45-59 mL/min/1.73 square meter and albuminuria creatinine ratio less than 30 mg/g COPD (chronic obstructive pulmonary disease) Hemorrhagic cerebrovascular accident (CVA) (~2006) Hydronephrosis, left Hyperlipidemia Hypertension Lung cancer Macrocytic anemia (07/06/16) Mild alcohol abuse (03/26/15) Olecranon bursitis Peripheral vascular disease of foot (05/31/17) Sinusitis Stenosis of left femoral artery Stroke Substance abuse Syncope Syncope and collapse (09/10/12) Tobacco use disorder, continuous (09/10/12) Transient cerebral ischemia (04/23/12) Traumatic compression fracture of seventh thoracic vertebra, sequela (10/09/16) Tubular adenoma Urinary retention Surgical History History of carpal tunnel repair (03/02/15) History of cataract removal with insertion of prosthetic lens (02/16/15) History of cataract removal with insertion of prosthetic lens (03/09/15) History of tonsillectomy Status post appendectomy Status post colonoscopy (10/06/09) Status post lobectomy of lung (~04/2020) Status post repair of hydrocele (05/22/11) Family History Brother Lung cancer Father Lung cancer Mother Migraines Social History marital status: number of children: 2 household members: spouse Smoking Status: Current every day smoker Tobacco: How many years used: 69 quit status: considering quitting alcohol intake: current caffeine: Yes Smoking Status: Current every day smoker alcohol intake frequency: 3 or more drinks per day Substance Use Type: does not use Exam Initial Vital Signs Initial Vital Signs: Vital Signs Temperature 98.2 F 10/08/20 16:56 Pulse Rate 63 10/08/20 16:56 Respiratory Rate 36 H 10/08/20 16:56 Blood Pressure 143/65 H 10/08/20 16:56 Pulse Oximetry 93 10/08/20 16:56 Const General: comfortable and well developed Limitations: mental status not altered HENMT Head: normal to inspection and normocephalic Resp Effort & Inspection: not labored and tachypneic Auscultation: rhonchi Cardio Rate: regular rate Rhythm: regular rhythm GI Inspection: non-distended Palpation: soft Skin Lesions: no lesions Rashes: no rashes Neuro General: patient alert, patient awake and patient oriented x3 Cognition: normal cognition Speech: speech normal Extrem General: capillary refill normal Psych Appearance: grossly normal and well kempt Course Orders Ordered: ED Orders 10/08/20 17:06 EKG-12 Lead Stat 10/08/20 17:40 Complete Blood Count AUTO DIFF Stat Comprehensive Metabolic Panel Stat Lactate (Lactic Acid) Stat Lipase Stat NT-proBNP (BNP-Adult 18+) Stat Partial Thromboplastin Time Stat Procalcitonin Stat Prothrombin Time INR Stat Troponin & CK Cardiac Panel Stat Type and Screen Stat 10/08/20 17:50 COVID19 - ADMIT ([employer] swab/PCR) Stat 10/08/20 18:53 CT angio chest PE protocol Stat 10/08/20 20:35 Blood Culture Stat 10/08/20 22:15 Respiratory Panel (Film Array) Stat Acetaminophen (Acetaminophen 325 Mg Tablet) 650 mg PO Q6HR PRN PRN Reason: Fever/Mild Pain (1-3) Al Hydrox/Mg Hydrox/Simethicone (Mag Hydrox/Alum/Simeth 30 Ml Udc) 30 ml PO Q6HR PRN PRN Reason: Dyspepsia Albuterol (Albuterol Hfa Mdi 60 Puff/8 Gm Inhaler) 2 puff INH Q4H PRN PRN Reason: shortness of breath or wheezing Albuterol/Ipratropium (Albuterol/Ipratropium 3 Ml Ampul) 3 ml INH [id number] [facility] Amlodipine Besylate (Amlodipine 5 Mg Tablet) 5 mg PO BID [facility] Bisacodyl (Bisacodyl 10 Mg Supp) 10 mg [place] DAILY PRN PRN Reason: Constipation Calcium Carbonate (Calcium Carbonate 500 Mg Tab) 1,000 mg PO Q4HR PRN PRN Reason: Dyspepsia Cyanocobalamin (Cyanocobalamin (Vitamin B-12) 500 Mcg Tablet) 1,000 mcg PO DAILY [facility] Docusate Sodium (Docusate 100 Mg Capsule) 100 mg PO BID [facility] Enoxaparin Sodium (Enoxaparin 40 Mg/0.4 Ml Syringe) 40 mg SUBCUT DAILY [facility] Folic Acid (Folic Acid 1 Mg Tablet) 1 mg PO DAILY [facility] Sodium Chloride (Normal Saline 0.9%) 1,000 mls @ 50 mls/hr IV CONT [facility] Last Admin: 10/09/20 00:05 Dose: 50 mls/hr Documented by: DANA Piperacillin/Tazobactam/Dextrose (Zosyn) 4.5 gm in 100 mls @ 200 mls/hr IV Q6H [facility] Vancomycin HCl (Vancomycin) 1,250 mg in 250 mls @ 250 mls/hr IV Q12H [facility] Levofloxacin (Levaquin) 750 mg in 150 mls @ 100 mls/hr IV Q48H [facility] Last Admin: 10/09/20 01:19 Dose: 100 mls/hr Documented by: DANA Morphine Sulfate (Morphine 2 Mg/Ml Inj) 2 mg IV Q4HR PRN PRN Reason: Pain, Moderate (4-6) Naloxone HCl (Naloxone 0.4 Mg/Ml Vial) 0.2 mg IV Q2MIN PRN PRN Reason: Opiate Reversal Non-Formulary Medication (Fluticasone Furoate-Vilanterol) 1 inhalation INH DAILY [facility] Non-Formulary Medication (Umeclidinium [Incruse Ellipta]) 62.5 mcg INH DAILY [facility] Ondansetron HCl (Ondansetron 4 Mg/2 Ml Inj) 4 mg IV Q8HR PRN PRN Reason: Nausea And Vomiting Prednisone (Prednisone 20 Mg Tablet) 40 mg PO DAILY [facility] Rosuvastatin Calcium (Rosuvastatin 10 Mg Tablet) 5 mg PO DAILY [facility] Tamsulosin HCl (Tamsulosin 0.4 Mg Capsule) 0.8 mg PO DAILY [facility] Thiamine HCl (Thiamine 100 Mg Tablet) 100 mg PO DAILY [facility] Vancomycin HCl (Vancomycin Per Pharmacy) 1 request [facility] Stop: 10/08/20 22:33 Discontinued Medications Amlodipine Besylate (Amlodipine 5 Mg Tablet) 5 mg PO BID [facility] Last Admin: 10/09/20 01:00 Dose: Not Given Documented by: DANA Piperacillin/Tazobactam/Dextrose (Zosyn) 4.5 gm in 100 mls @ 200 mls/hr IV NOW ONE Stop: 10/08/20 20:59 Last Infusion: 10/08/20 21:29 Dose: 200 mls/hr Documented by: Admin: 10/08/20 20:49 Dose: 200 mls/hr Documented by: CHRISTINE Levofloxacin (Levaquin) 750 mg in 150 mls @ 100 mls/hr IV Q24H [facility] Last Admin: 10/09/20 01:00 Dose: Not Given Documented by: DANA Vancomycin HCl (Vancomycin) 1,250 mg in 250 mls @ 250 mls/hr IV NOW ONE Stop: 10/08/20 23:31 Last Admin: 10/09/20 00:11 Dose: 250 mls/hr Documented by: DANA Levofloxacin (Levaquin) 750 mg in 150 mls @ 100 mls/hr IV Q48H [facility] Last Admin: 10/09/20 01:02 Dose: Not Given Documented by: DANA Non-Formulary Medication (Mecobalamin (Vitamin B12) [B12 Active]) 1,000 mcg PO DAILY [facility] Vital Signs Vital signs: Vital Signs - 8 hr 10/08/20 18:49 10/08/20 19:00 10/08/20 19:10 Pulse Rate 62 57 L 62 Respiratory Rate 29 H 22 20 Blood Pressure 162/71 H 155/70 H Pulse Oximetry 93 93 88 L 10/08/20 19:30 10/08/20 20:00 10/08/20 20:01 Pulse Rate 56 L 56 L 59 L Respiratory Rate 19 23 19 Blood Pressure 177/72 H 171/73 H Pulse Oximetry 94 92 94 MDM - Recheck/Abnormal Lab/Rx Lab Data Attestation: I reviewed the patient's lab results. Result diagrams: 10/08/20 17:40 10/08/20 17:40 Labs: Lab Results 10/08/20 10/08/20 10/08/20 Range/Units 17:40 17:40 17:40 WBC 6.1 (4.5-11.0) X10^3/uL RBC 2.45 L (4.5-5.9) X10^6/uL Hgb 8.7 L (13.5-17.5) g/dL Hct 26.6 L (41-53) % MCV 108.4 H (80-100) fL MCH 35.5 H (26-34) PG MCHC 32.7 (30-36) % RDW 16.0 H (11.6-14.8) % Plt Count 371 (150-400) X10^3/uL Neut % (Auto) Not Reportable Lymph % (Auto) Not Reportable [place] % (Auto) Not Reportable Eos % (Auto) Not Reportable Baso % (Auto) Not Reportable Lymph # (Auto) Not Reportable [place] # (Auto) Not Reportable Baso # (Auto) Not Reportable Total Counted 100 Seg Neutrophils % 50.0 (38-70) % Lymphocytes % (Manual) 21.0 L (25-45) % Monocytes % (Manual) 26.0 H (2-11) % Metamyelocytes % 1.0 H (-0) % Myelocytes % 2.0 H (-0) % Neutrophils # (Manual) 3050 (8184-3812) /uL Nucleated RBCs 1 H ( - 0) #/Diff RBC Morphology See below Anisocytosis 1+ H Spherocytes 2+ H PT 12.7 (10.1-12.7) SECONDS INR 1.1 (0.9-1.3) APTT 42 H (26.4-36.2) SECONDS Sodium 143 (137-145) mmol/L Potassium 4.2 (3.4-5.1) mmol/L Chloride 106 (98-107) mmol/L Carbon Dioxide 30 (22-32) mmol/L BUN 42 H (9-20) mg/dL Creatinine 1.52 H (0.66-1.25) mg/dL Estimated GFR 44.1 L (>60) mL/min BUN/Creatinine Ratio 27.6 H (6-22) Glucose 89 (80-110) mg/dL Lactate (0.7-2.1) mmol/L Calcium 9.7 (8.4-10.2) mg/dL Magnesium (1.6-2.3) mg/dL Total Bilirubin 0.1 L (0.2-1.3) mg/dL AST 36 (17-59) IU/L ALT 48 (<50) IU/L Alkaline Phosphatase 119 (38-126) U/L Total Creatine Kinase 67 (55-170) U/L CK-MB (CK-2) TNP CK-MB (CK-2) Rel Index TNP Troponin I < 0.012 (0.01-0.034) ng/mL NT-Pro-B Natriuret Pep 964 H (<450) pg/mL Total Protein 6.9 (6.3-8.2) g/dL Albumin 3.6 (3.5-5.0) g/dL Globulin 3.3 (1.7-4.1) g/dL Albumin/Globulin Ratio 1.1 (1.0-2.8) Lipase 59 (23-300) U/L Procalcitonin 0.31 (<0.5) ng/mL SARS-CoV-2 (PCR) (Negative) Blood Type Antibody Screen 10/08/20 10/08/20 10/08/20 Range/Units 17:40 17:40 17:40 WBC (4.5-11.0) X10^3/uL RBC (4.5-5.9) X10^6/uL Hgb (13.5-17.5) g/dL Hct (41-53) % MCV (80-100) fL MCH (26-34) PG MCHC (30-36) % RDW (11.6-14.8) % Plt Count (150-400) X10^3/uL Neut % (Auto) Lymph % (Auto) [place] % (Auto) Eos % (Auto) Baso % (Auto) Lymph # (Auto) [place] # (Auto) Baso # (Auto) Total Counted Seg Neutrophils % (38-70) % Lymphocytes % (Manual) (25-45) % Monocytes % (Manual) (2-11) % Metamyelocytes % (-0) % Myelocytes % (-0) % Neutrophils # (Manual) (6998-6549) /uL Nucleated RBCs ( - 0) #/Diff RBC Morphology Anisocytosis Spherocytes PT (10.1-12.7) SECONDS INR (0.9-1.3) APTT (26.4-36.2) SECONDS Sodium (137-145) mmol/L Potassium (3.4-5.1) mmol/L Chloride (98-107) mmol/L Carbon Dioxide (22-32) mmol/L BUN (9-20) mg/dL Creatinine (0.66-1.25) mg/dL Estimated GFR (>60) mL/min BUN/Creatinine Ratio (6-22) Glucose (80-110) mg/dL Lactate 1.3 (0.7-2.1) mmol/L Calcium (8.4-10.2) mg/dL Magnesium 2.4 H (1.6-2.3) mg/dL Total Bilirubin (0.2-1.3) mg/dL AST (17-59) IU/L ALT (<50) IU/L Alkaline Phosphatase (38-126) U/L Total Creatine Kinase (55-170) U/L CK-MB (CK-2) CK-MB (CK-2) Rel Index Troponin I (0.01-0.034) ng/mL NT-Pro-B Natriuret Pep (<450) pg/mL Total Protein (6.3-8.2) g/dL Albumin (3.5-5.0) g/dL Globulin (1.7-4.1) g/dL Albumin/Globulin Ratio (1.0-2.8) Lipase (23-300) U/L Procalcitonin (<0.5) ng/mL SARS-CoV-2 (PCR) (Negative) Blood Type O Positive Antibody Screen Negative 10/08/20 Range/Units 17:50 WBC (4.5-11.0) X10^3/uL RBC (4.5-5.9) X10^6/uL Hgb (13.5-17.5) g/dL Hct (41-53) % MCV (80-100) fL MCH (26-34) PG MCHC (30-36) % RDW (11.6-14.8) % Plt Count (150-400) X10^3/uL Neut % (Auto) Lymph % (Auto) [place] % (Auto) Eos % (Auto) Baso % (Auto) Lymph # (Auto) [place] # (Auto) Baso # (Auto) Total Counted Seg Neutrophils % (38-70) % Lymphocytes % (Manual) (25-45) % Monocytes % (Manual) (2-11) % Metamyelocytes % (-0) % Myelocytes % (-0) % Neutrophils # (Manual) (1680-3294) /uL Nucleated RBCs ( - 0) #/Diff RBC Morphology Anisocytosis Spherocytes PT (10.1-12.7) SECONDS INR (0.9-1.3) APTT (26.4-36.2) SECONDS Sodium (137-145) mmol/L Potassium (3.4-5.1) mmol/L Chloride (98-107) mmol/L Carbon Dioxide (22-32) mmol/L BUN (9-20) mg/dL Creatinine (0.66-1.25) mg/dL Estimated GFR (>60) mL/min BUN/Creatinine Ratio (6-22) Glucose (80-110) mg/dL Lactate (0.7-2.1) mmol/L Calcium (8.4-10.2) mg/dL Magnesium (1.6-2.3) mg/dL Total Bilirubin (0.2-1.3) mg/dL AST (17-59) IU/L ALT (<50) IU/L Alkaline Phosphatase (38-126) U/L Total Creatine Kinase (55-170) U/L CK-MB (CK-2) CK-MB (CK-2) Rel Index Troponin I (0.01-0.034) ng/mL NT-Pro-B Natriuret Pep (<450) pg/mL Total Protein (6.3-8.2) g/dL Albumin (3.5-5.0) g/dL Globulin (1.7-4.1) g/dL Albumin/Globulin Ratio (1.0-2.8) Lipase (23-300) U/L Procalcitonin (<0.5) ng/mL SARS-CoV-2 (PCR) Negative (Negative) Blood Type Antibody Screen Imaging Data Chest x-ray: Radiologist's Impression: [address] [id number] ReportSigned Patient: Pola Chambers DMR#: [id number]: [id number]:[id number]/Sex: 84 / MDate of Service: 10/08/20Loc: LABAccession Number: [id number] Procedure: XR chest 2V Ordering Provider: Navya Rodriguez D.O. PROCEDURE: XR CHEST 2V INDICATIONS: shortness of breath TECHNIQUE: 2 views of the chest were acquired. COMPARISON: [facility], CT, CT CHEST WO CON, 09/08/2020, 14:32. [facility], CR, XR CHEST 1V, 09/27/2020, 13:53. FINDINGS: Surgical changes and devices: None. Lungs and pleura: There are changes of chronic obstructive pulmonary physiology. New patchy ill-defined left basilar airspace opacities. Patchy right basilar opacities are also noted. Chronic appearing diffuse interstitial prominence. Likely small bilateral pleural effusions. No pneumothorax. No pleural effusions or pneumothorax. Mediastinum: Mediastinal contours are stable. Heart size is normal. Bones and chest wall: No suspicious bony abnormalities. Soft tissues appear unremarkable. IMPRESSION: Interval development of left basilar airspace opacities and increased right basilar opacities suggestive of multifocal pneumonia. Mild/early pulmonary edema not excluded if clinically appropriate. Recommend follow up chest radiograph 4-6 weeks after treatment to document resolution of findings and/or return to baseline examination. Dictated by: Johnson Little M.D. on 10/08/2020 at 13:52 Approved by: Johnson Little M.D. on 10/08/2020 at 13:57 CT scan - chest: Radiologist's Impression: [id number] [place] [id number] Scan ReportSigned Patient: Pola Chambers DMR#: [id number]: [id number]:[id number]/Sex: 84 / MDate of Service: 10/08/20Loc: EDAccession Number: [id number] Procedure: CT angio chest PE protocol Ordering Provider: Alli Austin D.O. PROCEDURE: CT ANGIO CHEST PE PROTOCOL INDICATIONS: Chest pain, shortness of breath, tachycardia TECHNIQUE: After the administration of intravenous contrast, 2 mm thick sections acquired from the pulmonary apices to the posterior costophrenic angles. 3-dimensional maximum intensity projection (MIP) coronal and sagittal reformats were then acquired through the thorax. For radiation dose reduction, the following was used: automated exposure control, adjustment of mA and/or kV according to patient size. COMPARISON: [facility], CT, CT CHEST WO CON, 09/08/2020, 14:32. FINDINGS: Image quality: Excellent. Pulmonary arteries: Pulmonary arteries are normal in size, and demonstrate no intraluminal filling defects to suggest central pulmonary embolism. Lungs and pleura: Minimal right and mild left effusion. Interval development of a prominent left lower lobe confluent reticular opacity and to a lesser degree in the right lower lobe. There are additional patchy areas of nodular opacity within the lungs bilaterally with appearance overall worse compared to 09/08/2020. No pleural effusions or pneumothorax. Central and peripheral airways are patent. Mediastinum: Heart size is normal, without pericardial effusion. Mediastinal adenopathy is present with the largest noted in the right anterior paratracheal region measuring 21 mm. Thoracic aorta is normal in caliber and enhancement. Esophagus is normal in caliber, without hiatal hernia. Bones and chest wall: No suspicious bony lesions. Ribs and thoracic spine appear intact throughout. Thyroid gland is unremarkable. No axillary or supraclavicular adenopathy. Abdomen: Visualized upper abdominal solid organs appear normal in the early arterial phase of enhancement. IMPRESSION: 1. Interval worsening of bilateral effusions with reticular opacities suggestive of infection or inflammation. In addition, scattered pulmonary nodular opacities are present also suggestive of infection or inflammation. Interval follow-up is recommended to document resolution after appropriate therapy and exclude presence of underlying mass lesion. Dictated by: Simi Cassidy M.D. on 10/08/2020 at 19:32 Approved by: Simi Cassidy M.D. on 10/08/2020 at 19:38 ECG Data Attestation: I personally reviewed and interpreted this ECG as follows: Prior ECG tracings: not available for review Interpretation: Sinus rhythm Ventricular rate is 66 Normal QRS Normal QTC Frequent PACs LVH MDM Narrative Medical decision making narrative: Patient is afebrile and does not have a leukocytosis. He is tachypneic and has had a productive cough. He completed a course of antibiotics from his last admission where he was diagnosed with pneumonia. He is somewhat anemic the could potentially be causing his symptoms however given his chest x-ray and CT scan findings today there was also concern about potential continuation of pneumonia. Given his recent hospitalization he would meet criteria for healthcare associated pneumonia. Treatment was started with Zosyn here in the emergency department. He is not having chest pain. His troponin is negative. Given his presentation and his labs and the CT scan finding in his hypoxia I do feel admission to the hospital for further evaluation and treatment is warranted. Discussed case with KEELY Darden the night hospitalist who agrees will admit for further evaluation and treatment. Discussed the admission with the patient. He and his who is at bedside expressed understanding and agreement. Discharge Plan Departure Patient Disposition: Admitted As Inpatient Clinical Impression: Pneumonia, Anemia, Hypoxia Admit Date/Time: 10/08/20 20:27 Admit Provider: Cesar Darden
--- NOTE | 2020-10-08 18:53 | DI.CT.S_ITS ---
PROCEDURE: CT ANGIO CHEST PE PROTOCOL INDICATIONS: Chest pain, shortness of breath, tachycardia TECHNIQUE: After the administration of intravenous contrast, 2 mm thick sections acquired from the pulmonary apices to the posterior costophrenic angles. 3-dimensional maximum intensity projection (MIP) coronal and sagittal reformats were then acquired through the thorax. For radiation dose reduction, the following was used: automated exposure control, adjustment of mA and/or kV according to patient size. COMPARISON: [facility], CT, CT CHEST WO [facility], 09/08/2020, 14:32. FINDINGS: Image quality: Excellent. Pulmonary arteries: Pulmonary arteries are normal in size, and demonstrate no intraluminal filling defects to suggest central pulmonary embolism. Lungs and pleura: Minimal right and mild left effusion. Interval development of a prominent left lower lobe confluent reticular opacity and to a lesser degree in the right lower lobe. There are additional patchy areas of nodular opacity within the lungs bilaterally with appearance overall worse compared to 09/08/2020. No pleural effusions or pneumothorax. Central and peripheral airways are patent. Mediastinum: Heart size is normal, without pericardial effusion. Mediastinal adenopathy is present with the largest noted in the right anterior paratracheal region measuring 21 mm. Thoracic aorta is normal in caliber and enhancement. Esophagus is normal in caliber, without hiatal hernia. Bones and chest wall: No suspicious bony lesions. Ribs and thoracic spine appear intact throughout. Thyroid gland is unremarkable. No axillary or supraclavicular adenopathy. Abdomen: Visualized upper abdominal solid organs appear normal in the early arterial phase of enhancement. IMPRESSION: 1. Interval worsening of bilateral effusions with reticular opacities suggestive of infection or inflammation. In addition, scattered pulmonary nodular opacities are present also suggestive of infection or inflammation. Interval follow-up is recommended to document resolution after appropriate therapy and exclude presence of underlying mass lesion. Dictated by: Simi Cassidy M.D. on 10/08/2020 at 19:32 Approved by: Simi Cassidy M.D. on 10/08/2020 at 19:38
--- NOTE | 2020-10-08 18:55 | PC.NURSE ---
Patient has multiple areas of bruising noted right forearm, left side of chest. Unknown cause of bruising, not on blood thinners.
[2020-10-08 19:33] LABS: COVID19 - ADMIT (NP swab/PCR) Negative (Negative)
[2020-10-08] MEDS: PIPERACILLIN-TAZO 4.5 GM/100 ML FROZ.PIGGY IV (20:49)
[2020-10-08 22:47] LABS: Magnesium 2.4 mg/dL (1.6-2.3)
--- NOTE | 2020-10-08 23:00 | P.HP_ITS ---
History of Present Illness History of Present Illness Date Patient Seen: 10/08/20 Time Patient Seen: 23:14 Chief complaint: states needs blood transfusion Narrative: Mr. 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 The patient was being seen at his primary care provider where the patient ambulated independently to the exam room with increasing shortness of breath during the walk finding his O2 sat to be 69- 74%RA. The patient improved with rest and oxygen therapy continue to require 1 L to maintain a sat 90%. Patient was recently admitted to [facility] from 09/27/2020 through 10/02/2020 where he was evaluated for bradycardia and evaluation for pacemaker. Was felt that time the patient's bradycardia was secondary to comorbid conditions, sepsis and pneumonia. The patient completed a course of azithromycin while admitted and was discharged home to complete a course of cefdinir. Since returning home the patient has reported worsening shortness of breath. The patient reports coughing up reddish pink sputum. He reports no systemic symptoms of fevers or chills, nasal congestion or sore throat. Denies complaints chest pain that does endorse left posterior flank ache. Denies abdominal pain and has had no nausea vomiting, diarrhea or constipation. He reports his last bowel movement was this morning. He denies urinary difficulty is not nocturia 1-3 times nightly. Upon arrival ER the patient has a temperature 98.4?, heart rate of 58, blood pressure 146/64, respirations 30, saturating 93% on 1 liters/minute nasal cannula. Chest x-ray: Interval development of left basilar airspace opacities with increased right basilar opacity suggestive multifocal pneumonia. Mild/early pulmonary edema not excluded if clinically appropriate. CT angiogram of the chest: No pulmonary embolism, interval worsening of bilateral effusions with particular opacities suggestive of infection or inflammation, scattered pulmonary nodular opacities are also present suggestive of inflammation or infection. On laboratory analysis the patient has white count of 6.1 with no shift, 8 hemoglobin of 8.7 with hematocrit of 26.6, MCV of 108, platelets of 371. Coagulation studies within normal limits. On chemistry electrolytes within normal limits with a BUN of 42 and a creatinine of 1.52. Liver functions are normal range an albumin 3.6. His total CK is 67, troponin of less than 0.012. His proBNP is 964. Procalcitonin is 0.31. His COVID screening is negative. The patient was rhythm discharged from [facility] 6 days ago and is admitted to the hospitalist service today for healthcare acquired pneumonia. Patient History Medical History Adenocarcinoma of right lung, stage 1 (~05/10/20) Anemia Benign prostatic hyperplasia (01/29/12) Bradycardia Cellulitis Centrilobular emphysema (12/13/16) Cholesteatoma (09/10/12) Chronic kidney disease (CKD) stage G3a/A1, moderately decreased glomerular filtration rate (GFR) between 45-59 mL/min/1.73 square meter and albuminuria creatinine ratio less than 30 mg/g COPD (chronic obstructive pulmonary disease) Hemorrhagic cerebrovascular accident (CVA) (~2006) Hydronephrosis, left Hyperlipidemia Hypertension Lung cancer Macrocytic anemia (07/06/16) Mild alcohol abuse (03/26/15) Olecranon bursitis Peripheral vascular disease of foot (05/31/17) Sinusitis Stenosis of left femoral artery Stroke Substance abuse Syncope Syncope and collapse (09/10/12) Tobacco use disorder, continuous (09/10/12) Transient cerebral ischemia (04/23/12) Traumatic compression fracture of seventh thoracic vertebra, sequela (10/09/16) Tubular adenoma Urinary retention Surgical History History of carpal tunnel repair (03/02/15) History of cataract removal with insertion of prosthetic lens (02/16/15) History of cataract removal with insertion of prosthetic lens (03/09/15) History of tonsillectomy Status post appendectomy Status post colonoscopy (10/06/09) Status post lobectomy of lung (~04/2020) Status post repair of hydrocele (05/22/11) Family & Social History Family History Brother Lung cancer Father Lung cancer Mother Migraines Social History: household members spouse Safety & Behavioral: Feels Safe in Current Yes Environment Tobacco & Substance use: Tobacco type cigarettes Smoking Status Current every day smoker alcohol intake current alcohol intake frequency 3 or more drinks per day Substance Use Type does not use Meds Home Medications and Allergies Home Medications Medication Instructions Recorded Confirmed Type multivitamin [Tab-A-Iqra] 1 tab PO DAILY #30 tab 09/14/19 10/09/20 Rx thiamine HCl (vitamin B1) [Vitamin 100 mg PO DAILY #30 tab 09/14/19 10/09/20 Rx B-1] amlodipine 5 mg tablet 5 mg PO BID #180 tab 01/23/20 10/09/20 Rx rosuvastatin 10 mg tablet 5 mg PO DAILY #45 tab 01/23/20 10/09/20 Rx fluticasone furoate 200 1 inhalation INHALATION DAILY #60 03/05/20 10/09/20 Rx mcg-vilanterol 25 mcg/dose each inhalation powder umeclidinium 62.5 mcg/actuation 62.5 mcg INHALATION QDAY #1 inh 03/05/20 10/09/20 Rx blister powder for inhalation albuterol sulfate 90 mcg/actuation 2 puff INHALATION Q4H PRN #1 05/31/20 10/09/20 Rx aerosol inhaler inhalation tamsulosin 0.4 mg capsule 0.8 mg PO DAILY #60 cap 08/19/20 10/09/20 Rx mecobalamin (vitamin B12) 1,000 1,000 mcg PO DAILY 08/24/20 10/09/20 History mcg chewable tablet prednisone 20 mg tablet 40 mg PO DAILY 5 Days #10 tab 10/08/20 10/09/20 Rx Allergies Allergy/AdvReac Type Severity Reaction Status Date / Time No Known Drug Allergies Allergy Unknown Verified 10/08/20 16:56 Review of Systems Review of Systems ROS: Yes All systems reviewed with the patient and are negative except as otherwise documented Exam Vital Signs (past 8 hours): - 10/08/20 16:56 10/08/20 18:49 10/08/20 19:00 Temperature 98.2 F Pulse Rate 63 62 57 L Respiratory Rate 36 H 29 H 22 Blood Pressure 143/65 H 162/71 H Pulse Oximetry 93 93 93 10/08/20 19:10 10/08/20 19:30 10/08/20 20:00 Temperature Pulse Rate 62 56 L 56 L Respiratory Rate 20 19 23 Blood Pressure 155/70 H 177/72 H Pulse Oximetry 88 L 94 92 10/08/20 20:01 10/08/20 20:30 10/08/20 20:31 Temperature Pulse Rate 59 L 53 L 54 L Respiratory Rate 19 21 21 Blood Pressure 171/73 H 159/71 H Pulse Oximetry 94 100 99 10/08/20 21:00 10/08/20 21:01 10/08/20 21:26 Temperature Pulse Rate 50 L 48 L 43 L Respiratory Rate 20 16 20 Blood Pressure 143/67 H 143/67 H Pulse Oximetry 99 99 97 10/08/20 21:30 10/08/20 22:00 10/08/20 22:01 Temperature Pulse Rate 50 L 48 L 48 L Respiratory Rate 18 21 23 Blood Pressure 143/64 H 159/71 H Pulse Oximetry 96 95 95 10/08/20 22:30 10/08/20 22:31 Temperature Pulse Rate 54 L 51 L Respiratory Rate 18 23 Blood Pressure 151/68 H Pulse Oximetry 97 96 Oxygen Delivery Method Nasal Cannula Oxygen Flow Rate 2 Narrative Exam Narrative: GENERAL APPEARANCE: well developed, well nourished, resting quietly in bed in no acute distress. HEENT: Normocephalic, PERRLA, conjunctiva clear, EOMs intact without nystagmus, no sinus tenderness to percussion, no rhinorrhea, mucous membranes pink with black coating on his tongue NECK/THYROID: neck supple, no JVD, no thyromegaly, trachea midline. LYMPH NODES: no cervical or supraclavicular lymphadenopathy. SKIN: [place], warm and dry, ecchymosis superior aspect of bilateral shoulders and bilateral forearms. HEART: Bradycardic rate and regular rhythm, S1-S2, 3/6 systolic murmur, no rubs or gallops, brisk capillary refill, trace edema LUNGS: Bilateral expiratory wheezing, bibasilar crackles left greater than right, no cough present on deep inspiration. CHEST: Symmetrical movement, no retractions or accessory muscle use, good tidal volume. ABDOMEN: Soft, no distention, no epigastric or abdominal tenderness, no guarding or peritoneal signs, no organomegaly, active bowel tones. EXTREMITIES: moves all extremities, strength is 5/5 and symmetrical, no deformities or joint effusions. NEUROLOGIC: AAO x3, mild memory impairment, cranial nerves II-XII grossly intact, sensation intact to light touch, hearing grossly normal to speech. PSYCH: Good eye contact, cooperative, appropriate a stable behavior. Objective Labs Result Diagrams: 10/08/20 17:40 10/08/20 17:40 Labs: Laboratory Results - last 24 hr 10/08/20 10/08/20 10/08/20 17:40 17:40 17:40 WBC 6.1 RBC 2.45 L Hgb 8.7 L Hct 26.6 L MCV 108.4 H MCH 35.5 H MCHC 32.7 RDW 16.0 H Plt Count 371 Neut % (Auto) Not Reportable Lymph % (Auto) Not Reportable [place] % (Auto) Not Reportable Eos % (Auto) Not Reportable Baso % (Auto) Not Reportable Lymph # (Auto) Not Reportable [place] # (Auto) Not Reportable Baso # (Auto) Not Reportable Total Counted 100 Seg Neutrophils % 50.0 Lymphocytes % (Manual) 21.0 L Monocytes % (Manual) 26.0 H Metamyelocytes % 1.0 H Myelocytes % 2.0 H Neutrophils # (Manual) 3050 Nucleated RBCs 1 H RBC Morphology See below Anisocytosis 1+ H Spherocytes 2+ H PT 12.7 INR 1.1 APTT 42 H Sodium 143 Potassium 4.2 Chloride 106 Carbon Dioxide 30 BUN 42 H Creatinine 1.52 H Estimated GFR 44.1 L BUN/Creatinine Ratio 27.6 H Glucose 89 Lactate Calcium 9.7 Magnesium Total Bilirubin 0.1 L AST 36 ALT 48 Alkaline Phosphatase 119 Total Creatine Kinase 67 CK-MB (CK-2) TNP CK-MB (CK-2) Rel Index TNP Troponin I < 0.012 NT-Pro-B Natriuret Pep 964 H Total Protein 6.9 Albumin 3.6 Globulin 3.3 Albumin/Globulin Ratio 1.1 Lipase 59 Procalcitonin 0.31 SARS-CoV-2 (PCR) Blood Type Antibody Screen 10/08/20 10/08/20 10/08/20 17:40 17:40 17:40 WBC RBC Hgb Hct MCV MCH MCHC RDW Plt Count Neut % (Auto) Lymph % (Auto) [place] % (Auto) Eos % (Auto) Baso % (Auto) Lymph # (Auto) [place] # (Auto) Baso # (Auto) Total Counted Seg Neutrophils % Lymphocytes % (Manual) Monocytes % (Manual) Metamyelocytes % Myelocytes % Neutrophils # (Manual) Nucleated RBCs RBC Morphology Anisocytosis Spherocytes PT INR APTT Sodium Potassium Chloride Carbon Dioxide BUN Creatinine Estimated GFR BUN/Creatinine Ratio Glucose Lactate 1.3 Calcium Magnesium 2.4 H Total Bilirubin AST ALT Alkaline Phosphatase Total Creatine Kinase CK-MB (CK-2) CK-MB (CK-2) Rel Index Troponin I NT-Pro-B Natriuret Pep Total Protein Albumin Globulin Albumin/Globulin Ratio Lipase Procalcitonin SARS-CoV-2 (PCR) Blood Type O Positive Antibody Screen Negative 10/08/20 17:50 WBC RBC Hgb Hct MCV MCH MCHC RDW Plt Count Neut % (Auto) Lymph % (Auto) [place] % (Auto) Eos % (Auto) Baso % (Auto) Lymph # (Auto) [place] # (Auto) Baso # (Auto) Total Counted Seg Neutrophils % Lymphocytes % (Manual) Monocytes % (Manual) Metamyelocytes % Myelocytes % Neutrophils # (Manual) Nucleated RBCs RBC Morphology Anisocytosis Spherocytes PT INR APTT Sodium Potassium Chloride Carbon Dioxide BUN Creatinine Estimated GFR BUN/Creatinine Ratio Glucose Lactate Calcium Magnesium Total Bilirubin AST ALT Alkaline Phosphatase Total Creatine Kinase CK-MB (CK-2) CK-MB (CK-2) Rel Index Troponin I NT-Pro-B Natriuret Pep Total Protein Albumin Globulin Albumin/Globulin Ratio Lipase Procalcitonin SARS-CoV-2 (PCR) Negative Blood Type Antibody Screen Assessment & Plan Assessment & Plan narrative: This patient is a 84-year-old male patient with a history of 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 Patient was discharged from [facility] 6 days ago for was hospitalized for treatment of pneumonia r eceiving azithromycin and cefdinir. The patient completed his course of antibiotics. 1. Bibasilar bacterial pneumonia, risk for pseudomonal infection post recent hospitalization, present on admission, active -the patient improved while treated at [facility], he had worsening shortness of breath following discharge and found hypoxic by his PCP today complicated by COPD. Patient with bibasilar crackles left greater right. -patient desaturated with ambulation in the physician's office to upper 80s to low 70s. Patient saturation is 92-93% on 1 liter/minute nasal cannula. PF ratio is calculated by conversion table to be 287. -chest x-ray changes consistent with chronic obstructive pulmonary physiology, new ill-defined left basilar opacities and patchy right basilar opacities small bilateral pulmonary effusions. -CT angio finds no pulmonary emboli, notes bilateral pleural effusions with particular opacities, scattered pulmonary nodular opacities. -on laboratory analysis the patient has white count of 6.1, procalcitonin of 0.31 and is COVID negative. Respiratory panel is negative. -ordered triple antibiotic therapy with Zosyn 4.5 g IV every 6 hours, Levaquin 750 mg every 48 hours and vancomycin dosing per pharmacy. -will recheck CBC and procalcitonin in the morning. 2. Chronic macrocytic anemia present on admission, active. -admission labs reveal hemoglobin of 8.7 and hematocrit 27.6. His hemoglobin was 10.1 on 09/27/2020. -anemia is complicated by chronic kidney disease as well as history of adenocarcinoma lung cancer. -patient is on B12 and thiamine supplement, will add folic acid 1 mg daily. -will recheck CBC in the morning. 3. Chronic kidney disease stage III, chronic, stable -patient is a creatinine of 1.52 on admission labs which approximates his baseli ne renal function. His last creatinine on 09/22/2020 was 1.88. -will avoid renal toxic agents and renally dose medications as indicated. -will follow-up renal function on serial chemistries. 4. COPD, unknown type, present on admission, stable. -bilateral expiratory wheezing on evaluation with exertional hypoxia. -patient is not on home oxygen responds well to supplemental oxygen. -patient's inhalers are non formulary, will continue patient's home regimen albuterol MDI, ordered albuterol Atrovent nebulizer every 6 hours, ordered prednisone 40 mg daily. 5. Hypertension, chronic, stable -patient's blood pressure is 146/64 upon admission to the emergency department and remains stable upon admission to the acute care floor. -will continue patient's amlodipine 5 mg twice daily. 6. Adenocarcinoma of the lung, chronic, stable. -patient had lung resection, patient cannot state whether was lobectomy or wedge resection. -patient did not undergo chemo or radiation therapies, no evidence of reoccurrence. VTE prophylaxis: Enoxaparin IV fluid: Normal saline 50 cc/hour Diet: Heart healthy Code status: Full code, the patient designates his to be surrogate decision maker. The patient is admitted to the hospital due to the severity of his symptoms requiring further monitoring and interventions to prevent complications and adverse events. The patient is admitted as an inpatient requiring multiple IV antibiotics treat complex pneumonia. COVID-19 COVID-19 status: Negative Result date/Date tested (Pos, Neg/Pending): 10/08/20 Scores GCS [place] coma scale eye opening: Spontaneous [place] coma scale verbal response: Orientated [place] coma scale motor response: Obey commands [place] coma scale total score: 15 Quality MIPS - Admit I confirm the patient?s Advance Care Plan is present, Code status is documented, Surrogate decision maker is in patient?s record [If Yes, STOP here]: Yes
[2020-10-08 23:14] LABS: Adenovirus Not Detected (Not Detect); B. parapertussis Not Detected (Not Detecte); Bordetella pertussis Not Detected (Not Detecte); Chlamydophila pneumoniae Not Detected (Not Detect); Coronavirus 229E Not Detected (Not Detect); Coronavirus HKU1 Not Detected (Not Detect); Coronavirus NL 63 Not Detected (Not Detect); Coronavirus OC43 Not Detected (Not Detect); Human Metapneumovirus Not Detected (Not Detect); Human Rhinovirus/Enterovirus Not Detected (Not Detect); Influenza A Not Detected (Not Detect); Influenza B Not Detected (Not Detect); Mycoplasma pneumoniae Not Detected (Not Detect); Parainfluenza Virus 1 Not Detected (Not Detect); Parainfluenza Virus 2 Not Detected (Not Detect); Parainfluenza Virus 3 Not Detected (Not Detect); Parainfluenza Virus 4 Not Detected (Not Detect); Respiratory Syncytial Virus Not Detected (Not Detect); SARS- CoV-2 Not Detected (Not Detecte)
[2020-10-09] VITALS (10 sets, daily range): BP systolic 135–146; BP diastolic 42–69; PULSE 44–70; RESP 16–18; TEMP 36.2–36.8; O2SAT 90–98
[2020-10-09] MEDS: SODIUM CHLORIDE 0.9% 1,000 ML 50 ML IV (00:05)
[2020-10-09] MEDS: VANCOMYCIN 1,250 MG/250 ML PIGGYBACK 250 MG IV (00:11)
[2020-10-09] MEDS: levoFLOXacin 750 MG/150 ML PIGGYBACK 100 MG IV (01:19)
[2020-10-09 02:42] LABS: Bacteria Urine None Seen; RBC Urine None Seen (0-5/HPF)
[2020-10-09 02:51] LABS: Appearance Urine UA CLEAR; Bilirubin Urine UA NEGATIVE (NEGATIVE); Color Urine UA YELLOW; Glucose Urine UA NEGATIVE (Negative); Ketones Urine UA NEGATIVE (NEGATIVE); Leukocyte Esterase Urine UA NEGATIVE (NEGATIVE); Nitrite Urine UA NEGATIVE (Negative); Occult Blood Urine UA TRACE-INTACT (Negative); Protein Urine UA TRACE (Negative); Urobilinogen Urine UA 0.2 E.U./dL (0.2)
[2020-10-09 03:05] LABS: Culture Indicated Urine Cult Not Indicated; WBC Urine 0-1/HPF (0-5/HPF)
[2020-10-09] MEDS: PIPERACILLIN-TAZO 4.5 GM/100 ML FROZ.PIGGY IV ×4 (03:23→21:56)
[2020-10-09 05:46] LABS: Hematocrit 24.1 % (41-53); Hemoglobin 7.8 g/dL (13.5-17.5); Mean Corpuscular HGB Conc 32.6 % (30-36); Mean Corpuscular Hemoglobin 35.4 PG (26-34); Mean Corpuscular Volume 108.5 fL (80-100); Platelet Count 315 X10^3/uL (150-400); Red Blood Cell Count 2.22 X10^6/uL (4.5-5.9); Red Cell Distribution Width 15.8 % (11.6-14.8); White Blood Cell Count 5.5 X10^3/uL (4.5-11.0)
[2020-10-09 05:47] LABS: Add Manual Diff / Slide Review YES
[2020-10-09 05:55] LABS: BUN Creatinine Ratio 26.6 (6-22); Blood Urea Nitrogen 37 mg/dL (9-20); Calcium 9.1 mg/dL (8.4-10.2); Carbon Dioxide 33 mmol/L (22-32); Chloride 108 mmol/L (98-107); Estimated Glomerular Filt Rate 48.9 mL/min (>60); Glucose 93 mg/dL (80-110); HEMOLYSIS < 15 (0-50); Potassium 4.9 mmol/L (3.4-5.1); Sodium 143 mmol/L (137-145)
[2020-10-09 06:02] LABS: NT-proBNP (BNP-Adult 18+) 665 pg/mL (<450)
[2020-10-09 07:01] LABS: Total Cells Counted 100
[2020-10-09 07:02] LABS: Neutrophils Absolute Manual 2915 /uL (3000-5900); Nucleated Red Blood Cells 1 #/Diff
[2020-10-09 07:03] LABS: Anisocytosis 1+; Macrocytosis 2+
[2020-10-09] MEDS: ALBUTEROL/IPRATROPIUM 3 ML AMPUL INH ×3 (08:36→18:58)
[2020-10-09] MEDS: CYANOCOBALAMIN (VITAMIN B-12) 500 MCG TABLET 1000 MCG PO (09:58)
[2020-10-09] MEDS: ENOXAPARIN 40 MG/0.4 ML SYRINGE SUBCUT (09:59)
[2020-10-09] MEDS: predniSONE 20 MG TABLET 40 MG PO (09:59)
[2020-10-09] MEDS: TAMSULOSIN 0.4 MG CAPSULE 0.8 MG PO (09:59)
[2020-10-09] MEDS: FOLIC ACID 1 MG TABLET PO (09:59)
[2020-10-09] MEDS: AMLODIPINE 5 MG TABLET PO ×2 (10:00→21:31)
[2020-10-09] MEDS: DOCUSATE 100 MG CAPSULE PO ×2 (10:00→21:31)
[2020-10-09] MEDS: THIAMINE 100 MG TABLET PO (10:01)
[2020-10-09] MEDS: ROSUVASTATIN 10 MG TABLET 5 MG PO (10:01)
[2020-10-09] MEDS: SODIUM CHLORIDE 0.9% FLUSH 10 ML IV ×3 (10:09→21:31)
--- NOTE | 2020-10-09 11:31 | PT.IIE ---
Surgical History (Last Reviewed 10/09/20 @ 00:55 by EDUARDO Hartley) History of carpal tunnel repair (03/02/15) History of cataract removal with insertion of prosthetic lens (02/16/15) History of cataract removal with insertion of prosthetic lens (03/09/15) History of tonsillectomy Status post appendectomy Status post colonoscopy (10/06/09) Status post lobectomy of lung (~04/2020) Status post repair of hydrocele (05/22/11) Medical History (Last Reviewed 10/09/20 @ 01:50 by Alli Austin DO) Adenocarcinoma of right lung, stage 1 (~05/10/20) Anemia Benign prostatic hyperplasia (01/29/12) Bradycardia Cellulitis Centrilobular emphysema (12/13/16) Cholesteatoma (09/10/12) Chronic kidney disease (CKD) stage G3a/A1, moderately decreased glomerular filtration rate (GFR) between 45-59 mL/min/1.73 square meter and albuminuria creatinine ratio less than 30 mg/g COPD (chronic obstructive pulmonary disease) Hemorrhagic cerebrovascular accident (CVA) (~2006) Hydronephrosis, left Hyperlipidemia Hypertension Lung cancer Macrocytic anemia (07/06/16) Mild alcohol abuse (03/26/15) Olecranon bursitis Peripheral vascular disease of foot (05/31/17) Sinusitis Stenosis of left femoral artery Stroke Substance abuse Syncope Syncope and collapse (09/10/12) Tobacco use disorder, continuous (09/10/12) Transient cerebral ischemia (04/23/12) Traumatic compression fracture of seventh thoracic vertebra, sequela (10/09/16) Tubular adenoma Urinary retention Physical Therapy Inpatient Evaluation/Re-Eval M1 PT/OT-IP Prior Functional Status Start: 10/09/20 14:34 Freq: NEEDED Status: Active Protocol: Document 10/09/20 11:31 AB (Rec: 10/09/20 14:50 AB [id number]) Medical Review Prior Functional Status Medical History Reviewed Yes Communication able to make needs known Mobility and Gait pt sated that he is independent with all mobilities and ambulation without AD Social History Household Members spouse Living Arrangements House Number of Floors (Floors) 3 or More Floors Number of Stairs To Enter/Railing? 2 steps to enter without rails 13 steps with L rail to get to bedroom level Home Environment Standard Height Toilet,Tub/ Shower Doors Home Equipment Hand Held Shower M2 PT-IP Current Condition Start: 10/09/20 14:34 Freq: NEEDED Status: Active Protocol: Document 10/09/20 11:31 AB (Rec: 10/09/20 14:50 AB [email or web address]) Physical Therapy Current Condition Current Condition Evaluation Date 10/09/20 Treatment Diagnosis PNA; anemia; difficulty in walking Precautions Other Precautions O2 sat M3 PT-IP Subjective Start: 10/09/20 14:34 Freq: NEEDED Status: Active Protocol: Document 10/09/20 11:31 AB (Rec: 10/09/20 14:50 AB [email or web address]) Subjective Physical Therapy Visit Type Type Initial Evaluation Visit Start Time 11:31 Visit Stop Time 12:00 Total Visit Minutes 29 Number of [employer] APPRENTICE Visits 0 Physical Therapy Visit Comments Patient Comments pt is agreeable to do PT Therapy Pain Assessment Pain Present Pain Present Denied Pain M4 PT-IP Mobility and Gait Start: 10/09/20 14:34 Freq: NEEDED Status: Active Protocol: Document 10/09/20 11:31 AB (Rec: 10/09/20 14:50 AB [email or web address]) PT-Bed Mobility Assessment Supine to Sit Supine to Sit Standby Assistance PT-Transfer Assessment Sit to and From Stand Sit to and from Stand Independent Equipment Transfer Assistive Device None,Gait Belt Orthotic/Prosthetic Devices or Brace: No Transfers Transfer Destination Chair Transfer Technique ambulated without AD Transfer Ability Level of Assist Standby Assistance Comments Mobility Comments BP supine: 145/72 O2 sat 94-96 % with 1 1/2 L O2. completed supine to sit SBA. pt was able to sit on EOB SBA. BP sitting on EOB: 141/88 O2 sat : 94-96%. completed sit to stand SBA and ambulated in room without AD SBA ~ 20 ft. presents with slight unsteadiness with initial standing but without LOB. stated that his feet are not working right. Spouse stated that he has neuropathy. pt rested on the chair. O2 sat decreased to 88%. cued for deep breathing and O2 sat increased to 91% after ~ 15 sec. pt agreed to ambulate again and completed SBA 20 ft without AD and pt is steadier this time. O2 sat after ambualtion: 91%. pt agreed to stay up on chair. positioned on chair. call light and table placed within reach. Gait Assessment Gait Gait Assistance Required: Standby Assistance Distance (Feet) 20 Able to Maintain Weight Bearing Status Yes During Gait Assistive Devices Assistive Device None,Gait Belt Orthotic/Prosthetic Devices or Brace: No Gait Deviations General Gait Pattern Antalgic Factors Limiting Gait Function Factors Limiting Gait Function Decreased Activity Tolerance, Poor Balance,Respiratory Distress PT-Balance Assessment Sitting Balance and Reactions Static Sitting Balance Ability Good Dynamic Sitting Balance Ability Good Standing Balance and Reactions Static Standing Balance Ability Good Dynamic Standing Balance Ability Fair Device Used without AD M5 PT-IP Objective Assessments Start: 10/09/20 14:34 Freq: NEEDED Status: Active Protocol: Document 10/09/20 11:31 AB (Rec: 10/09/20 14:50 AB [id number]) Orientation Orientation/Cognition Level of Alertness Alert Orientation Name,Place,Situation Safety Awareness Decreased Safety Awareness Memory Description Short Term Impaired Gross Range of Motion Lower Extremity ROM Assessment Within Functional Limits Strength Lower Extremity Strength Assessment Within Functional Limits Coordination Assessment Gross Coordination Gross Coordination WNL Sensation Assessment Sensation Gross Sensation Right LE Impaired,Left LE Impaired Sensation Description Numbness Comments Sensation Comments 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 Muscle Tone Muscle Tone WNL Yes M6 PT-IP Treatment Start: 10/09/20 14:34 Freq: NEEDED Status: Active Protocol: Document 10/09/20 11:31 AB (Rec: 10/09/20 14:50 AB [email or web address]) Physical Therapy Treatment Education Education Provided Safety M7 PT-IP Assessment and Plan Start: 10/09/20 14:34 Freq: NEEDED Status: Active Protocol: Document 10/09/20 11:31 AB (Rec: 10/09/20 14:50 AB [email or web address]) PT Summary Assessment and Plan Potential Rehabilitation Potential Good Status of Condition at Evaluation Evolving Summary Impairments Pain,ROM,Strength,Balance, Coordination,Sensation,Tone, Cognition,Bed Mobility, Transfers,Gait,Activity Tolerance Progress Towards Goals Slow Progress due to Activity Tolerance Assessment Summary pt requiring SBA with mobility but with decreas activity tolerance with O2 sat decreasing to 88% at 1 1/2 L/ min O2 with short distance ambulation without AD. pt lives with spouse and spouse will be able to assist pt when needed. will continue PT to improve activity tolerance , overall strengthening , standing balance and ambulation/stair climbing. Goals Bed Mobility Goal Independent Transfer Goal Independent Gait Goal Independent Gait Distance 200 Other Goals up/down 2 stteps wtihout rail SBA up/down 13 steps L rail ascending SBA Days to Meet Goals 5 Frequency of Treatment Frequency Of Treatment Once a Day Treatment Plan Physical Therapy Treatment Plan Bed Mobility Training,Transfer Training,Gait Training, Therapeutic Exercise,Balance Retraining,Discharge Planning, Hot or Cold Pack,Neuromuscular Re-ed,Coordination Retraining Precautions Other Precautions O2 sat Recommendations To Nursing Amount of Assist Needed Standby Assistance Discharge Recommendations PT Discharge Recommendations Home with Assistance Transportation Needs at Discharge Private Vehicle
--- NOTE | 2020-10-09 11:55 | CM.DANOTE ---
DCP: Case received, EMR reviewed and met with patient. Introduced self and role. Was able to obtain information from patient regarding his baseline activity status prior to hospitalization. DCP assessment completed with information currently available. Patient is an 84 year old male who admitted yesterday evening to the care of the hospitalist team. PCP: Dr. Rodriguez. Payer: confirmed: Medicare/[employer]. Patient came to the hospital via private vehicle secondary to having some increased shortness of breath. Patient holds current diagnosis of pneumonia. Patient was recently at [facility] from 09-27 to 10-02 to evaluate for a pacemaker. He did not need a pacemaker, and was discharged home. He went home and started developing increased shortness of breath. Met with patient in his room. He was sitting up in bed, alert and oriented, pleasant. Confirmed with him that he does have home oxygen for use if needed through [employer]. He also has portables as well. Patient also indicated that he doesn't always need it. He also drives, uses no DME at his baseline He resides here in [place] with his spouse, Arely. P: DCP to continue to follow for any needs. Patient should be able to go home when he is medically stable. Aaliyah Rincon, RN/Director Customer
--- NOTE | 2020-10-09 12:48 | P.PN_ITS ---
Subjective Subjective Date Patient Seen: 10/09/20 Time Patient Seen: 10:48 Interval history: He feels short of breath with minimal activity, including changing position in bed. He is coughing bringing up pink tinged sputum. He has no pain. No fevers. Exam Vital Signs (past 8 hours): - 10/09/20 05:00 10/09/20 08:00 10/09/20 08:38 Temperature 97.2 F L 97.8 F Pulse Rate 44 L 49 L Respiratory Rate 18 18 Blood Pressure 140/52 L 139/60 Pulse Oximetry 98 97 90 L 10/09/20 08:41 10/09/20 11:24 10/09/20 12:30 Temperature 97.7 F Pulse Rate 50 L 51 L 54 L Respiratory Rate 16 17 16 Blood Pressure 135/61 Pulse Oximetry 94 97 95 Oxygen Delivery Method Nasal Cannula Oxygen Flow Rate 2 Narrative Exam Narrative: GENERAL APPEARANCE: resting quietly in bed in no acute distress. HEENT: Normocephalic, PERRLA, conjunctiva clear, EOMs intact without nystagmus, no sinus tenderness to percussion, no rhinorrhea, mucous membranes moist NECK/THYROID: neck supple, no JVD, trachea midline. LYMPH NODES: no cervical or supraclavicular lymphadenopathy. SKIN: [place], warm and dry, ecchymosis superior aspect of bilateral shoulders and bilateral forearms, also on left thorax at mid axillary line HEART: Bradycardic rate and regular rhythm, S1-S2, no rubs or gallops, brisk capillary refill, trace edema LUNGS: Bilateral expiratory wheezing, bibasilar crackles left greater than right, no cough present on deep inspiration. CHEST: Symmetrical movement, no retractions or accessory muscle use, good tidal volume. ABDOMEN: Soft, no distention, no epigastric or abdominal tenderness, no guarding or peritoneal signs, no organomegaly, active bowel tones. EXTREMITIES: moves all extremities, strength is 5/5 and symmetrical, no deformities or joint effusions. NEUROLOGIC: AAO x3, cranial nerves II-XII grossly intact, sensation intact to light touch, hearing grossly normal to speech. PSYCH: pleasant, cooperative Objective Labs Result Diagrams: 10/09/20 05:25 10/09/20 05:25 Labs: Laboratory Results - last 24 hr 10/08/20 10/08/20 10/08/20 17:40 17:40 17:40 WBC 6.1 RBC 2.45 L Hgb 8.7 L Hct 26.6 L MCV 108.4 H MCH 35.5 H MCHC 32.7 RDW 16.0 H Plt Count 371 Neut % (Auto) Not Reportable Lymph % (Auto) Not Reportable Cedar % (Auto) Not Reportable Eos % (Auto) Not Reportable Baso % (Auto) Not Reportable Lymph # (Auto) Not Reportable [place] # (Auto) Not Reportable Baso # (Auto) Not Reportable Total Counted 100 Seg Neutrophils % 50.0 Band Neutrophils % Lymphocytes % (Manual) 21.0 L Monocytes % (Manual) 26.0 H Metamyelocytes % 1.0 H Myelocytes % 2.0 H Neutrophils # (Manual) 3050 Nucleated RBCs 1 H RBC Morphology See below Anisocytosis 1+ H Macrocytosis Spherocytes 2+ H PT 12.7 INR 1.1 APTT 42 H Sodium 143 Potassium 4.2 Chloride 106 Carbon Dioxide 30 BUN 42 H Creatinine 1.52 H Estimated GFR 44.1 L BUN/Creatinine Ratio 27.6 H Glucose 89 Lactate Calcium 9.7 Magnesium Total Bilirubin 0.1 L AST 36 ALT 48 Alkaline Phosphatase 119 Total Creatine Kinase 67 CK-MB (CK-2) TNP CK-MB (CK-2) Rel Index TNP Troponin I < 0.012 NT-Pro-B Natriuret Pep 964 H Total Protein 6.9 Albumin 3.6 Globulin 3.3 Albumin/Globulin Ratio 1.1 Lipase 59 Procalcitonin 0.31 Urine Color Urine Appearance Urine pH Ur Specific [place] Urine Protein Urine Glucose (UA) Urine Ketones Urine Occult Blood Urine Nitrate Urine Bilirubin Urine Urobilinogen Ur Leukocyte Esterase Urine RBC Urine WBC Urine Bacteria Ur Culture Indicated? Chlamy pneumoniae PCR Adenovirus (PCR) B. pertussis DNA (PCR) B.parapertussis DNA PCR Coronavirus OC43 (PCR) Coronavirus HKU1 (PCR) Coronavirus 229E (PCR) SARS-CoV-2 (PCR) Coronavirus NL63 (PCR) Human Metapneumovir PCR Influenza Type A (PCR) Influenza Type B (PCR) M. pneumoniae (PCR) Parainfluenza 1 (PCR) Parainfluenza 2 (PCR) Parainfluenza 3 (PCR) Parainfluenza 4 (PCR) RSV (PCR) Entero/Rhino (PCR) Blood Type Antibody Screen 10/08/20 10/08/20 10/08/20 17:40 17:40 17:40 WBC RBC Hgb Hct MCV MCH MCHC RDW Plt Count Neut % (Auto) Lymph % (Auto) [place] % (Auto) Eos % (Auto) Baso % (Auto) Lymph # (Auto) [place] # (Auto) Baso # (Auto) Total Counted Seg Neutrophils % Band Neutrophils % Lymphocytes % (Manual) Monocytes % (Manual) Metamyelocytes % Myelocytes % Neutrophils # (Manual) Nucleated RBCs RBC Morphology Anisocytosis Macrocytosis Spherocytes PT INR APTT Sodium Potassium Chloride Carbon Dioxide BUN Creatinine Estimated GFR BUN/Creatinine Ratio Glucose Lactate 1.3 Calcium Magnesium 2.4 H Total Bilirubin AST ALT Alkaline Phosphatase Total Creatine Kinase CK-MB (CK-2) CK-MB (CK-2) Rel Index Troponin I NT-Pro-B Natriuret Pep Total Protein Albumin Globulin Albumin/Globulin Ratio Lipase Procalcitonin Urine Color Urine Appearance Urine pH Ur Specific [place] Urine Protein Urine Glucose (UA) Urine Ketones Urine Occult Blood Urine Nitrate Urine Bilirubin Urine Urobilinogen Ur Leukocyte Esterase Urine RBC Urine WBC Urine Bacteria Ur Culture Indicated? Chlamy pneumoniae PCR Adenovirus (PCR) B. pertussis DNA (PCR) B.parapertussis DNA PCR Coronavirus OC43 (PCR) Coronavirus HKU1 (PCR) Coronavirus 229E (PCR) SARS-CoV-2 (PCR) Coronavirus NL63 (PCR) Human Metapneumovir PCR Influenza Type A (PCR) Influenza Type B (PCR) M. pneumoniae (PCR) Parainfluenza 1 (PCR) Parainfluenza 2 (PCR) Parainfluenza 3 (PCR) Parainfluenza 4 (PCR) RSV (PCR) Entero/Rhino (PCR) Blood Type O Positive Antibody Screen Negative 10/08/20 10/08/20 10/09/20 17:50 22:15 02:38 WBC RBC Hgb Hct MCV MCH MCHC RDW Plt Count Neut % (Auto) Lymph % (Auto) Cedar % (Auto) Eos % (Auto) Baso % (Auto) Lymph # (Auto) [place] # (Auto) Baso # (Auto) Total Counted Seg Neutrophils % Band Neutrophils % Lymphocytes % (Manual) Monocytes % (Manual) Metamyelocytes % Myelocytes % Neutrophils # (Manual) Nucleated RBCs RBC Morphology Anisocytosis Macrocytosis Spherocytes PT INR APTT Sodium Potassium Chloride Carbon Dioxide BUN Creatinine Estimated GFR BUN/Creatinine Ratio Glucose Lactate Calcium Magnesium Total Bilirubin AST ALT Alkaline Phosphatase Total Creatine Kinase CK-MB (CK-2) CK-MB (CK-2) Rel Index Troponin I NT-Pro-B Natriuret Pep Total Protein Albumin Globulin Albumin/Globulin Ratio Lipase Procalcitonin Urine Color Yellow Urine Appearance Clear Urine pH 6.0 Ur Specific [place] 1.010 Urine Protein Trace H Urine Glucose (UA) Negative Urine Ketones Negative Urine Occult Blood Trace-intact Urine Nitrate Negative Urine Bilirubin Negative Urine Urobilinogen 0.2 Ur Leukocyte Esterase Negative Urine RBC None seen Urine WBC 0-1/hpf Urine Bacteria None seen Ur Culture Indicated? Cult not indicated Chlamy pneumoniae PCR Not detected Adenovirus (PCR) Not detected B. pertussis DNA (PCR) Not detected B.parapertussis DNA PCR Not detected Coronavirus OC43 (PCR) Not detected Coronavirus HKU1 (PCR) Not detected Coronavirus 229E (PCR) Not detected SARS-CoV-2 (PCR) Negative Not detected Coronavirus NL63 (PCR) Not detected Human Metapneumovir PCR Not detected Influenza Type A (PCR) Not detected Influenza Type B (PCR) Not detected M. pneumoniae (PCR) Not detected Parainfluenza 1 (PCR) Not detected Parainfluenza 2 (PCR) Not detected Parainfluenza 3 (PCR) Not detected Parainfluenza 4 (PCR) Not detected RSV (PCR) Not detected Entero/Rhino (PCR) Not detected Blood Type Antibody Screen 10/09/20 10/09/20 05:25 05:25 WBC 5.5 RBC 2.22 L Hgb 7.8 L Hct 24.1 L MCV 108.5 H MCH 35.4 H MCHC 32.6 RDW 15.8 H Plt Count 315 Neut % (Auto) Not Reportable Lymph % (Auto) Not Reportable [place] % (Auto) Not Reportable Eos % (Auto) Not Reportable Baso % (Auto) Not Reportable Lymph # (Auto) Not Reportable [place] # (Auto) Not Reportable Baso # (Auto) Not Reportable Total Counted 100 Seg Neutrophils % 44.0 Band Neutrophils % 9.0 H Lymphocytes % (Manual) 31.0 Monocytes % (Manual) 16.0 H Metamyelocytes % Myelocytes % Neutrophils # (Manual) 2915 L Nucleated RBCs 1 H RBC Morphology See below Anisocytosis 1+ H Macrocytosis 2+ H Spherocytes PT INR APTT Sodium 143 Potassium 4.9 Chloride 108 H Carbon Dioxide 33 H BUN 37 H Creatinine 1.39 H Estimated GFR 48.9 L BUN/Creatinine Ratio 26.6 H Glucose 93 Lactate Calcium 9.1 Magnesium Total Bilirubin AST ALT Alkaline Phosphatase Total Creatine Kinase CK-MB (CK-2) CK-MB (CK-2) Rel Index Troponin I NT-Pro-B Natriuret Pep 665 H Total Protein Albumin Globulin Albumin/Globulin Ratio Lipase Procalcitonin Urine Color Urine Appearance Urine pH Ur Specific Ker[place] Urine Protein Urine Glucose (UA) Urine Ketones Urine Occult Blood Urine Nitrate Urine Bilirubin Urine Urobilinogen Ur Leukocyte Esterase Urine RBC Urine WBC Urine Bacteria Ur Culture Indicated? Chlamy pneumoniae PCR Adenovirus (PCR) B. pertussis DNA (PCR) B.parapertussis DNA PCR Coronavirus OC43 (PCR) Coronavirus HKU1 (PCR) Coronavirus 229E (PCR) SARS-CoV-2 (PCR) Coronavirus NL63 (PCR) Human Metapneumovir PCR Influenza Type A (PCR) Influenza Type B (PCR) M. pneumoniae (PCR) Parainfluenza 1 (PCR) Parainfluenza 2 (PCR) Parainfluenza 3 (PCR) Parainfluenza 4 (PCR) RSV (PCR) Entero/Rhino (PCR) Blood Type Antibody Screen [facility] Medical History Adenocarcinoma of right lung, stage 1 (~05/10/20) Anemia Benign prostatic hyperplasia (01/29/12) Bradycardia Cellulitis Centrilobular emphysema (12/13/16) Cholesteatoma (09/10/12) Chronic kidney disease (CKD) stage G3a/A1, moderately decreased glomerular filtration rate (GFR) between 45-59 mL/min/1.73 square meter and albuminuria creatinine ratio less than 30 mg/g COPD (chronic obstructive pulmonary disease) Hemorrhagic cerebrovascular accident (CVA) (~2006) Hydronephrosis, left Hyperlipidemia Hypertension Lung cancer Macrocytic anemia (07/06/16) Mild alcohol abuse (03/26/15) Olecranon bursitis Peripheral vascular disease of foot (05/31/17) Sinusitis Stenosis of left femoral artery Stroke Substance abuse Syncope Syncope and collapse (09/10/12) Tobacco use disorder, continuous (09/10/12) Transient cerebral ischemia (04/23/12) Traumatic compression fracture of seventh thoracic vertebra, sequela (10/09/16) Tubular adenoma Urinary retention Surgical History History of carpal tunnel repair (03/02/15) History of cataract removal with insertion of prosthetic lens (02/16/15) History of cataract removal with insertion of prosthetic lens (03/09/15) History of tonsillectomy Status post appendectomy Status post colonoscopy (10/06/09) Status post lobectomy of lung () Status post repair of hydrocele (05/22/11) Family History Brother Lung cancer Father Lung cancer Mother Migraines Social History marital status: number of children: 2 household members: spouse Smoking Status: Current every day smoker Tobacco: How many years used: 69 quit status: considering quitting alcohol intake: current caffeine: Yes Assessment & Plan Assessment & Plan narrative: This patient is a 84-year-old male patient with a history of adenocarcinoma of the lung in the right upper status post resection, history of TIA and CVA, COPD, bradycardia chronic kidney disease stage 3, thoracic compression, urinary retention and BPH who presents to the hospital with shortness of breath. Patient was discharged from [facility] 6 days ago for was hospitalized for treatment of pneumonia receiving azithromycin and cefdinir. The patient completed his course of antibiotics. 1. Acute on chronic respiratory failure with hypoxemia secondary to bacterial pneumonia with recent treatment with oral antibiotics, now with evidence of acute COPD exacerbation. -the patient improved while treated at [facility], he had worsening shortness of breath following discharge and found hypoxemic. Imaging shows worsening opacities consistent with a pneumonia. He is coughing bloody sputum and has wheezes consistent with COPD. He is on 2L of O2 primarily at night at baseline. -chest x-ray changes consistent with chronic obstructive pulmonary physiology, new ill-defined left basilar opacities and patchy right basilar opacities small bilateral pulmonary effusions. -CT angio finds no pulmonary emboli, notes bilateral pleural effusions with particular opacities, scattered pulmonary nodular opacities. -on laboratory analysis the patient has white count of 6.1, procalcitonin of 0.31 and is COVID negative. Respiratory panel is negative. -ordered triple antibiotic therapy with Zosyn 4.5 g IV every 6 hours, Levaquin 750 mg every 48 hours and vancomycin dosing per pharmacy. -for COPD ordered prednisone, and scheduled albuterol and ipratropium nebs, with PRN albuterol for worse SOB 2. Chronic macrocytic anemia present on admission, active. -admission labs reveal hemoglobin of 8.7, on 10/09 down to 7.8. His hemoglobin was 10.1 on 09/27/2020. -anemia is complicated by chronic kidney disease as well as history of adenocarcinoma lung cancer. -patient is on B12 and thiamine supplement, will add folic acid 1 mg daily. -will recheck CBC in the morning. 3. Chronic kidney disease stage III, chronic, stable -patient is a creatinine of 1.52 on admission labs which approximates his baseline renal function. His last creatinine on 09/22/2020 was 1.88, on 10/09 improved to 1.39. -will avoid renal toxic agents and renally dose medications as indicated. -will follow-up renal function on serial chemistries. 4. Hypertension, chronic, stable -patient's blood pressure is 146/64 upon admission to the emergency department and remains stable upon admission to the acute care floor. -will continue patient's amlodipine 5 mg twice daily. 5. Adenocarcinoma of the lung, chronic, stable. -patient had lung resection, patient cannot state whether was lobectomy or wedge resection. -patient did not undergo chemo or radiation therapies -CT findings difficult to determine if recurrence, is being followed as outpatient, and will need follow CT for further eval for possible masses once infection clears VTE prophylaxis: Enoxaparin IV fluid: None Diet: Heart healthy Code status: Full code, the patient designates his to be surrogate decision maker. The patient is admitted to the hospital due to the severity of his symptoms requiring further monitoring and interventions to prevent complications and adverse events. The patient is admitted as an inpatient requiring multiple IV antibiotics treat complex pneumonia.
--- NOTE | 2020-10-09 14:25 | PC.NURSE ---
Addendum entered by Meryl Briseno R.N. 10/09/20 14:43: On 2 L correction, not RA Original Note: Pt ambulating in room independently with steady gait. No audible wheezing noted on RA, no complaints of SOB, slight crackles in bilateral bases dimminished after nebulizer treatment. Tolerating zosyn without signs of ASE. Sheduled medications given per MAR, although NF inhalers not available. RN asked spouse if she is able to bring these in with next visit. [place] frothy sputum sent to lab. Strong productive cough. BS +X4, LBM 10/08 he reports was normal. MRSA nare swab sent to lab per orders, states if negative than vancomycin can be dc'd. Awaiting results. Scattered bruises noted to B extremities and L chest/ shoulder. Pt denies falling at home but reports he cuts wood, and does other chores at home. HGB 7.8, pt with chronic anemia. Scheduled for repeat labs. Continuous monitoring on telemetry SB-SR with BBB. VSS, afebrile.
[2020-10-09 14:49] LABS: Macrocytosis 2+
[2020-10-10] VITALS (11 sets, daily range): BP systolic 122–157; BP diastolic 65–81; PULSE 50–68; RESP 16–22; TEMP 36.8–37; O2SAT 85–95
[2020-10-10] MEDS: SODIUM CHLORIDE 0.9% FLUSH 10 ML IV ×6 (03:18→21:44)
[2020-10-10] MEDS: PIPERACILLIN-TAZO 4.5 GM/100 ML FROZ.PIGGY IV ×2 (03:20→10:27)
[2020-10-10 05:29] LABS: Hemoglobin 7.9 g/dL (13.5-17.5); Mean Corpuscular HGB Conc 32.9 % (30-36); Mean Corpuscular Hemoglobin 35.5 PG (26-34); Mean Corpuscular Volume 107.9 fL (80-100); Platelet Count 361 X10^3/uL (150-400); Red Blood Cell Count 2.22 X10^6/uL (4.5-5.9); White Blood Cell Count 7.3 X10^3/uL (4.5-11.0)
[2020-10-10 05:33] LABS: Add Manual Diff / Slide Review YES
[2020-10-10 05:40] LABS: BUN Creatinine Ratio 22.5 (6-22); Blood Urea Nitrogen 36 mg/dL (9-20); Calcium 9.5 mg/dL (8.4-10.2); Carbon Dioxide 32 mmol/L (22-32); Chloride 105 mmol/L (98-107); Estimated Glomerular Filt Rate 41.6 mL/min (>60); Glucose 131 mg/dL (80-110); HEMOLYSIS < 15 (0-50); Potassium 4.9 mmol/L (3.4-5.1); Sodium 140 mmol/L (137-145)
[2020-10-10 06:58] LABS: Neutrophils Absolute Manual 5110 /uL (3000-5900); Nucleated Red Blood Cells 1 #/Diff; Total Cells Counted 100
[2020-10-10 06:59] LABS: Anisocytosis 1+; Macrocytosis 1+
[2020-10-10] MEDS: ALBUTEROL/IPRATROPIUM 3 ML AMPUL INH ×3 (08:26→19:23)
[2020-10-10] MEDS: DOCUSATE 100 MG CAPSULE PO (08:55)
[2020-10-10] MEDS: predniSONE 20 MG TABLET 40 MG PO (08:55)
[2020-10-10] MEDS: CYANOCOBALAMIN (VITAMIN B-12) 500 MCG TABLET 1000 MCG PO (08:55)
[2020-10-10] MEDS: AMLODIPINE 5 MG TABLET PO ×2 (08:55→20:09)
[2020-10-10] MEDS: ENOXAPARIN 40 MG/0.4 ML SYRINGE SUBCUT (08:55)
[2020-10-10] MEDS: TAMSULOSIN 0.4 MG CAPSULE 0.8 MG PO (08:55)
[2020-10-10] MEDS: THIAMINE 100 MG TABLET PO (08:56)
[2020-10-10] MEDS: FOLIC ACID 1 MG TABLET PO (08:56)
[2020-10-10] MEDS: ROSUVASTATIN 10 MG TABLET 5 MG PO (08:56)
[2020-10-10] MEDS: SODIUM CHLORIDE 0.9% 250 ML 21 ML IV (10:27)
--- NOTE | 2020-10-10 11:41 | PT.IPTN ---
Current Diagnoses Unspecified bacterial pneumonia (10/08/20) Physical Therapy Treatment Note M2 PT-IP Current Condition Start: 10/09/20 14:34 Freq: NEEDED Status: Active Protocol: Document 10/09/20 11:31 AB (Rec: 10/09/20 14:50 AB [id number]) Physical Therapy Current Condition Current Condition Evaluation Date 10/09/20 Treatment Diagnosis PNA; anemia; difficulty in walking Precautions Other Precautions O2 sat M3 PT-IP Subjective Start: 10/09/20 14:34 Freq: NEEDED Status: Active Protocol: Document 10/10/20 10:47 MAGALI (Rec: 10/10/20 11:41 LJ [id number]) Subjective Physical Therapy Visit Type Type Treatment Note Visit Start Time 10:47 Visit Stop Time 11:25 Total Visit Minutes 38 Notes Pt up independently trying to plug IV into the wall Number of COATER ASSOCIATE Visits 1 Physical Therapy Visit Comments Patient Comments pt is agreeable to do PT Therapy Pain Assessment Pain Present Pain Present Denied Pain M4 PT-IP Mobility and Gait Start: 10/09/20 14:34 Freq: NEEDED Status: Active Protocol: Document 10/10/20 10:47 MAGALI (Rec: 10/10/20 11:41 LJ [id number]) PT-Transfer Assessment Sit to and From Stand Sit to and from Stand Independent Equipment Transfer Assistive Device Gait Belt Orthotic/Prosthetic Devices or Brace: No Transfers Transfer Destination Bed Transfer Technique ambulated without AD Transfer Ability Level of Assist Standby Assistance Comments Mobility Comments Pt on room air O2 pre activity at 91%. Pt ambulated in hallway 200' with 2 rest breaks to catch breath. Somewhat unsteady on his feet but did not have any LOB. Pt ambulated back to room and returned to bed to perform PLB . O2 sat at 80 on room air post ambulation. After 10 min of diagphragmatic breathing O2 returned to 88% and hovered around 87%-88% resting in bed. Gait Assessment Gait Gait Assistance Required: Standby Assistance Distance (Feet) 200 Able to Maintain Weight Bearing Status Yes During Gait Assistive Devices Assistive Device None,Gait Belt Orthotic/Prosthetic Devices or Brace: No Gait Deviations General Gait Pattern Antalgic Factors Limiting Gait Function Factors Limiting Gait Function Decreased Activity Tolerance, Poor Balance,Respiratory Distress Stair Climbing Assessment Evaluation Level of Assist On Stairs Standby Assistance,Contact Guard Assistance Devices Stair Climbing Assistive Devices Left Railing,Right Railing Technique/Endurance Stair Climbing Direction Ascend and Descend Stair Climbing Technique Step to Step Number of Steps Climbed 3 Stair Climbing Set # Repetitions (reps) 1 Comments Stair Climbing Comments Pt able to do stairs safely but needing cues to slow down. M5 PT-IP Objective Assessments Start: 10/09/20 14:34 Freq: NEEDED Status: Active Protocol: Document 10/09/20 11:31 AB (Rec: 10/09/20 14:50 AB [id number]) Orientation Orientation/Cognition Level of Alertness Alert Orientation Name,Place,Situation Safety Awareness Decreased Safety Awareness Memory Description Short Term Impaired Gross Range of Motion Lower Extremity ROM Assessment Within Functional Limits Strength Lower Extremity Strength Assessment Within Functional Limits Coordination Assessment Gross Coordination Gross Coordination WNL Sensation Assessment Sensation Gross Sensation Right LE Impaired,Left LE Impaired Sensation Description Numbness Comments Sensation Comments 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 Muscle Tone Muscle Tone WNL Yes M6 PT-IP Treatment Start: 10/09/20 14:34 Freq: NEEDED Status: Active Protocol: Document 10/10/20 10:47 MAGALI (Rec: 10/10/20 11:41 LJ [id number]) Physical Therapy Treatment Education Education Provided Safety Other Treatments Other Treatment Performed Guided diaphragmatic breathing 10 min on room air M7 PT-IP Assessment and Plan Start: 10/09/20 14:34 Freq: NEEDED Status: Active Protocol: Document 10/10/20 10:47 MAGALI (Rec: 10/10/20 11:41 LJ [id number]) PT Summary Assessment and Plan Potential Rehabilitation Potential Good Status of Condition at Evaluation Evolving Summary Impairments Pain,ROM,Strength,Balance, Coordination,Sensation,Tone, Cognition,Bed Mobility, Transfers,Gait,Activity Tolerance Progress Towards Goals Slow Progress due to Activity Tolerance Assessment Summary Pt able to increase activity level without O2 but O2 dropping to low to mid 80s. He needs cueing to slow down and breath more deeply during activity. With PLB increased to 87-88%. Pt will need assistance at home and cues to slow down and stop to rest. Goals Days to Meet Goals 5 Frequency of Treatment Frequency Of Treatment Once a Day Treatment Plan Physical Therapy Treatment Plan Bed Mobility Training,Transfer Training,Gait Training, Therapeutic Exercise,Balance Retraining,Discharge Planning, Hot or Cold Pack,Neuromuscular Re-ed,Coordination Retraining Precautions Other Precautions O2 sat Recommendations To Nursing Amount of Assist Needed Standby Assistance Discharge Recommendations PT Discharge Recommendations Home with Assistance Transportation Needs at Discharge Private Vehicle
--- NOTE | 2020-10-10 14:46 | PM.PN.1 ---
Subjective Subjective Date Patient Seen: 10/10/20 Time Patient Seen: 12:46 Interval history: Today he is started to feeling improved with less shortness of breath. Still coughing when tries to breathe deeply. Did just work slightly with PT and desatted down to the low 80s and needed to rest. No fevers/chills. Exam Vital Signs (past 8 hours): - 10/10/20 08:22 10/10/20 08:28 10/10/20 08:31 Temperature 98.5 F Pulse Rate 68 58 L Respiratory Rate 22 16 Blood Pressure 157/80 H Pulse Oximetry 88 L 89 L 92 10/10/20 11:57 10/10/20 11:59 10/10/20 12:58 Temperature 98.6 F Pulse Rate 50 L 63 Respiratory Rate 17 16 Blood Pressure 122/68 Pulse Oximetry 85 L 94 93 Oxygen Delivery Method Nasal Cannula Oxygen Flow Rate 1 Narrative Exam Narrative: GENERAL APPEARANCE: resting quietly in bed in no acute distress. HEENT: Normocephalic, PERRLA, conjunctiva clear, EOMs intact without nystagmus, no sinus tenderness to percussion, no rhinorrhea, mucous membranes moist NECK/THYROID: neck supple, no JVD, trachea midline. LYMPH NODES: no cervical or supraclavicular lymphadenopathy. SKIN: Bivins, warm and dry, ecchymosis superior aspect of bilateral shoulders and bilateral forearms, also on left thorax at mid axillary line HEART: Bradycardic rate and regular rhythm, S1-S2, no rubs or gallops, brisk capillary refill, trace edema LUNGS: Bilateral expiratory wheezing, no cough present on deep inspiration. CHEST: Symmetrical movement, no retractions or accessory muscle use, good tidal volume. ABDOMEN: Soft, no distention, no epigastric or abdominal tenderness, no guarding or peritoneal signs, no organomegaly, active bowel tones. EXTREMITIES: moves all extremities, strength is 5/5 and symmetrical, no deformities or joint effusions. NEUROLOGIC: AAO x3, cranial nerves II-XII grossly intact, sensation intact to light touch, hearing grossly normal to speech. PSYCH: pleasant, cooperative Objective Labs Result Diagrams: 10/10/20 05:05 10/10/20 05:05 Labs: Laboratory Results - last 24 hr 10/08/20 10/09/20 10/09/20 17:40 05:25 13:05 WBC RBC Hgb Hct MCV MCH MCHC RDW Plt Count Neut % (Auto) Lymph % (Auto) [place] % (Auto) Eos % (Auto) Baso % (Auto) Lymph # (Auto) [place] # (Auto) Baso # (Auto) Total Counted Seg Neutrophils % Band Neutrophils % Lymphocytes % (Manual) Atypical Lymphs % Monocytes % (Manual) Neutrophils # (Manual) Nucleated RBCs RBC Morphology Anisocytosis Macrocytosis 2+ H 2+ H Spherocytes Cooker Sulfate Sodium Potassium Chloride Carbon Dioxide BUN Creatinine Estimated GFR BUN/Creatinine Ratio Glucose Calcium Nasal Screen MRSA (PCR) Negative for mrsa 10/10/20 10/10/20 05:05 05:05 WBC 7.3 RBC 2.22 L Hgb 7.9 L Hct 24.0 L MCV 107.9 H MCH 35.5 H MCHC 32.9 RDW 16.0 H Plt Count 361 Neut % (Auto) Not Reportable Lymph % (Auto) Not Reportable [place] % (Auto) Not Reportable Eos % (Auto) Not Reportable Baso % (Auto) Not Reportable Lymph # (Auto) Not Reportable [place] # (Auto) Not Reportable Baso # (Auto) Not Reportable Total Counted 100 Seg Neutrophils % 53.0 Band Neutrophils % 17.0 H Lymphocytes % (Manual) 15.0 L Atypical Lymphs % 1.0 H Monocytes % (Manual) 14.0 H Neutrophils # (Manual) 5110 Nucleated RBCs 1 H RBC Morphology See below Anisocytosis 1+ H Macrocytosis 1+ H Spherocytes Sodium 140 Potassium 4.9 Chloride 105 Carbon Dioxide 32 BUN 36 H Creatinine 1.60 H Estimated GFR 41.6 L BUN/Creatinine Ratio 22.5 H Glucose 131 H Calcium 9.5 Nasal Screen MRSA (PCR) [facility] Medical History Adenocarcinoma of right lung, stage 1 (~05/10/20) Anemia Benign prostatic hyperplasia (01/29/12) Bradycardia Cellulitis Centrilobular emphysema (12/13/16) Cholesteatoma (09/10/12) Chronic kidney disease (CKD) stage G3a/A1, moderately decreased glomerular filtration rate (GFR) between 45-59 mL/min/1.73 square meter and albuminuria creatinine ratio less than 30 mg/g COPD (chronic obstructive pulmonary disease) Hemorrhagic cerebrovascular accident (CVA) (~2006) Hydronephrosis, left Hyperlipidemia Hypertension Lung cancer Macrocytic anemia (07/06/16) Mild alcohol abuse (03/26/15) Olecranon bursitis Peripheral vascular disease of foot (05/31/17) Sinusitis Stenosis of left femoral artery Stroke Substance abuse Syncope Syncope and collapse (09/10/12) Tobacco use disorder, continuous (09/10/12) Transient cerebral ischemia (04/23/12) Traumatic compression fracture of seventh thoracic vertebra, sequela (10/09/16) Tubular adenoma Urinary retention Surgical History History of carpal tunnel repair (03/02/15) History of cataract removal with insertion of prosthetic lens (02/16/15) History of cataract removal with insertion of prosthetic lens (03/09/15) History of tonsillectomy Status post appendectomy Status post colonoscopy (10/06/09) Status post lobectomy of lung (~04/2020) Status post repair of hydrocele (05/22/11) Family History Brother Lung cancer Father Lung cancer Mother Migraines Social History marital status: number of children: 2 household members: spouse Smoking Status: Current every day smoker Tobacco: How many years used: 69 quit status: considering quitting alcohol intake: current caffeine: Yes Assessment & Plan Assessment & Plan narrative: This patient is a 84-year-old male patient with a history of adenocarcinoma of the lung in the right upper status post resection, history of TIA and CVA, COPD, bradycardia chronic kidney disease stage 3, thoracic compression, urinary retention and BPH who presents to the hospital with shortness of breath. Patient was discharged from [facility] days ago for was hospitalized for treatment of pneumonia receiving azithromycin and cefdinir. The patient completed his course of antibiotics. 1. Acute on chronic respiratory failure with hypoxemia secondary to bacterial pneumonia with recent treatment with oral antibiotics, now with evidence of acute COPD exacerbation. -the patient improved while treated at [facility], he had worsening shortness of breath following discharge and found hypoxemic. Imaging shows worsening opacities consistent with a pneumonia. He is coughing bloody sputum and has wheezes consistent with COPD. He is on 2L O2 at baseline -chest x-ray changes consistent with chronic obstructive pulmonary physiology, new ill-defined left basilar opacities and patchy right basilar opacities small bilateral pulmonary effusions. -CT angio finds no pulmonary emboli, notes bilateral pleural effusions with particular opacities, scattered pulmonary nodular opacities. -COVID negative. Respiratory panel is negative. -initially ordered for vanc/levaquin/zosyn, but MRSA swab negative, and does not need double pseudomonas coverage. So on just zosyn for now -for COPD ordered prednisone, and scheduled albuterol and ipratropium nebs, with PRN albuterol for worse SOB 2. Chronic macrocytic anemia present on admission, active. -admission labs reveal hemoglobin of 8.7, on 10/09 down to 7.8. His hemoglobin was 10.1 on 09/27/2020. -anemia is complicated by chronic kidney disease as well as history of adenocarcinoma lung cancer. -patient is on B12 and thiamine supplement, will add folic acid 1 mg daily. -has remained stable with no evidence of bleeding or further hemoglobin drop so will continue to monitor, has no current indication for transfusion 3. Chronic kidney disease stage III, chronic, stable -patient is a creatinine of 1.52 on admission labs which approximates his baseline renal function. His last creatinine on 09/22/2020 was 1.88, on 10/10 was 1.6. -will avoid renal toxic agents and renally dose medications as indicated. -will follow-up renal function on serial chemistries. 4. Hypertension, chronic, stable -patient's blood pressure is 146/64 upon admission to the emergency department and remains stable upon admission to the acute care floor. -will continue patient's amlodipine 5 mg twice daily. 5. Adenocarcinoma of the lung, chronic, stable. -patient had lung resection, patient cannot state whether was lobectomy or wedge resection. -patient did not undergo chemo or radiation therapies -CT findings difficult to determine if recurrence, is being followed as outpatient, and will need follow CT for further eval for possible masses once infection clears VTE prophylaxis: Enoxaparin IV fluid: None Diet: Heart healthy Code status: Full code, the patient designates his to be surrogate decision maker. The patient is admitted to the hospital due to the severity of his symptoms requiring further monitoring and interventions to prevent complications and adverse events. The patient is admitted as an inpatient requiring multiple IV antibiotics treat complex pneumonia.
[2020-10-10] MEDS: PIPERACILLIN-TAZO 3.375 GM/50 ML FROZ.PIGGY IV ×2 (16:28→21:43)
[2020-10-11] VITALS (8 sets, daily range): BP systolic 135–159; BP diastolic 59–92; PULSE 52–66; RESP 14–23; TEMP 36.5–36.8; O2SAT 93–95
[2020-10-11] MEDS: PIPERACILLIN-TAZO 3.375 GM/50 ML FROZ.PIGGY IV ×4 (03:52→23:00)
[2020-10-11 05:09] LABS: Hematocrit 24.4 % (41-53); Mean Corpuscular HGB Conc 32.8 % (30-36); Mean Corpuscular Hemoglobin 35.5 PG (26-34); Platelet Count 383 X10^3/uL (150-400); Red Blood Cell Count 2.26 X10^6/uL (4.5-5.9); Red Cell Distribution Width 16.3 % (11.6-14.8); White Blood Cell Count 11.1 X10^3/uL (4.5-11.0)
[2020-10-11 05:13] LABS: BUN Creatinine Ratio 22.7 (6-22); Blood Urea Nitrogen 35 mg/dL (9-20); Calcium 9.7 mg/dL (8.4-10.2); Carbon Dioxide 34 mmol/L (22-32); Chloride 103 mmol/L (98-107); Estimated Glomerular Filt Rate 43.5 mL/min (>60); Glucose 124 mg/dL (80-110); HEMOLYSIS < 15 (0-50); Potassium 4.7 mmol/L (3.4-5.1); Sodium 139 mmol/L (137-145)
[2020-10-11] MEDS: ALBUTEROL/IPRATROPIUM 3 ML AMPUL INH ×3 (08:16→18:03)
[2020-10-11] MEDS: CYANOCOBALAMIN (VITAMIN B-12) 500 MCG TABLET 1000 MCG PO (09:03)
[2020-10-11] MEDS: AMLODIPINE 5 MG TABLET PO ×2 (09:03→22:05)
[2020-10-11] MEDS: FOLIC ACID 1 MG TABLET PO (09:04)
[2020-10-11] MEDS: TAMSULOSIN 0.4 MG CAPSULE 0.8 MG PO (09:04)
[2020-10-11] MEDS: predniSONE 20 MG TABLET 40 MG PO (09:04)
[2020-10-11] MEDS: ROSUVASTATIN 10 MG TABLET 5 MG PO (09:04)
[2020-10-11] MEDS: THIAMINE 100 MG TABLET PO (09:04)
[2020-10-11] MEDS: SODIUM CHLORIDE 0.9% FLUSH 10 ML IV ×2 (09:05→22:05)
[2020-10-11] MEDS: ENOXAPARIN 40 MG/0.4 ML SYRINGE SUBCUT (09:05)
--- NOTE | 2020-10-11 10:57 | PT.IPTN ---
Current Diagnoses Unspecified bacterial pneumonia (10/08/20) Physical Therapy Treatment Note M2 PT-IP Current Condition Start: 10/09/20 14:34 Freq: NEEDED Status: Active Protocol: Document 10/09/20 11:31 AB (Rec: 10/09/20 14:50 AB [id number]) Physical Therapy Current Condition Current Condition Evaluation Date 10/09/20 Treatment Diagnosis PNA; anemia; difficulty in walking Precautions Other Precautions O2 sat M3 PT-IP Subjective Start: 10/09/20 14:34 Freq: NEEDED Status: Active Protocol: Document 10/11/20 10:01 MAGALI (Rec: 10/11/20 10:57 LJ [id number]) Subjective Physical Therapy Visit Type Type Treatment Note Visit Start Time 10:01 Visit Stop Time 10:19 Total Visit Minutes 18 Number of [employer] Visits 2 Physical Therapy Visit Comments Patient Comments pt is agreeable to do PT Therapy Pain Assessment Pain Present Pain Present Denied Pain M4 PT-IP Mobility and Gait Start: 10/09/20 14:34 Freq: NEEDED Status: Active Protocol: Document 10/11/20 10:01 MAGALI (Rec: 10/11/20 10:57 [id number]) PT-Bed Mobility Assessment Supine to Sit Supine to Sit Independent PT-Transfer Assessment Sit to and From Stand Sit to and from Stand Independent Equipment Transfer Assistive Device Gait Belt Orthotic/Prosthetic Devices or Brace: No Transfers Transfer Destination Bed Transfer Technique ambulated without AD Transfer Ability Level of Assist Standby Assistance Comments Mobility Comments Pt on room air with O2 sat at 94% at rest. Independent with bed mobility with SBA when standing in case of dizziness. Pt ambulated in hallway CGA ~ 200' with one slight LOB which he corrected himself. O2 sat at 77% during ambulation about which nursing stated it may be low due to poor circulation . Pt was not winded nor dizzy during ambulation so values may be in question. Upon return to room pt practiced deep breathing technique and brought O2 % up to 90% in under 2 minutes as compared to yesterday's treatment. Pt was left in room with needs within reach and nursing present. Gait Assessment Gait Gait Assistance Required: Standby Assistance Distance (Feet) 200 Able to Maintain Weight Bearing Status Yes During Gait Assistive Devices Assistive Device None,Gait Belt Orthotic/Prosthetic Devices or Brace: No Gait Deviations General Gait Pattern Antalgic Factors Limiting Gait Function Factors Limiting Gait Function Decreased Activity Tolerance, Poor Balance,Respiratory Distress M5 PT-IP Objective Assessments Start: 10/09/20 14:34 Freq: NEEDED Status: Active Protocol: Document 10/09/20 11:31 AB (Rec: 10/09/20 14:50 AB [id number]) Orientation Orientation/Cognition Level of Alertness Alert Orientation Name,Place,Situation Safety Awareness Decreased Safety Awareness Memory Description Short Term Impaired Gross Range of Motion Lower Extremity ROM Assessment Within Functional Limits Strength Lower Extremity Strength Assessment Within Functional Limits Coordination Assessment Gross Coordination Gross Coordination WNL Sensation Assessment Sensation Gross Sensation Right LE Impaired,Left LE Impaired Sensation Description Numbness Comments Sensation Comments 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 Muscle Tone Muscle Tone WNL Yes M6 PT-IP Treatment Start: 10/09/20 14:34 Freq: NEEDED Status: Active Protocol: Document 10/11/20 10:01 LJ (Rec: 10/11/20 10:57 LJ [id number]) Physical Therapy Treatment Education Education Provided Safety M7 PT-IP Assessment and Plan Start: 10/09/20 14:34 Freq: NEEDED Status: Active Protocol: Document 10/11/20 10:01 LJ (Rec: 10/11/20 10:57 LJ [id number]) PT Summary Assessment and Plan Potential Rehabilitation Potential Good Status of Condition at Evaluation Evolving Summary Impairments Pain,ROM,Strength,Balance, Coordination,Sensation,Tone, Cognition,Bed Mobility, Transfers,Gait,Activity Tolerance Progress Towards Goals Goals Met Assessment Summary Pt is ambulating around room independently. He has met goals for PT other than 200' of ambulation independently but appears capable of such. He is safe to DC home with assistance. Goals Bed Mobility Goal Independent Transfer Goal Independent Gait Goal Independent Gait Distance 200 Other Goals up/down 2 steps without rail SBA up/down 13 steps L rail ascending SBA Days to Meet Goals 5 Frequency of Treatment Frequency Of Treatment Once a Day Treatment Plan Physical Therapy Treatment Plan Bed Mobility Training,Transfer Training,Gait Training, Therapeutic Exercise,Balance Retraining,Discharge Planning, Hot or Cold Pack,Neuromuscular Re-ed,Coordination Retraining Precautions Other Precautions O2 sat Recommendations To Nursing Amount of Assist Needed Standby Assistance Discharge Recommendations PT Discharge Recommendations Home with Assistance
--- NOTE | 2020-10-11 11:53 | DIET.PN ---
Dietary Progress Note Assessment: Mr. Pola Chambers is a 84-year-old male with a history of 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 Dietary consult related to chronic macrocytic anemia. Anemia is complicated by chronic kidney disease as well as history of adenocarcinoma lung cancer. Intake: pt admits to high intake of fast food sources including mcdonalds. He consumes high sodium meats, eggs, potatoes. He reports smoking and alcohol consumption. HT: 175.56cm WT: 79.4kg UBW: BMI: 24.8 Labs: hemoglobin 8.7 and hematocrit 27.6; eGFR: 43.5 MNA: 14 Navid: 21 Nutrition Diagnosis: altered nutrition r/t lab values r/t kidney/cardiac dysfunction aeb altered eGFR, Hct, Hgb. Interventions: 1. Provided education on iron deficiency. Provided list of iron recommendation and iron rich foods safe for CKD. 2. Discussed importance of limiting sodium rich foods for kidney health. Pt with good understanding, but questionable compliance. Diet Order: Heart healthy EER: 1900 edith (25cal/kg); 64-80g pro (0.8-1g/kg CKD3) Monitoring/Evaluations: labs, PO's, need for additional education
--- NOTE | 2020-10-11 13:19 | PC.NURSE ---
Day shift: Pt is A&Ox4. Denies any chest pain or nausea. On 1L NC w/ O2 of 94%. Encouraged to cough and deep breath as tolerated. Ambulated in halls w/ PT tis AM and tolerated well. Left lung base had fine crackles. Bruising on bilat arms. On tele and was SB at approx 1200 today. H.H. diet tolerated well. Hx stage 1 lung CA. IV antibiotic given this AM per SEP. SL rt FA. Goes by [place]. Has been calm, cooperative and very pleasant today. SBA w/ FWW. VS WNL. HR 61. WBC's 11.1 up from 7.3 yesterday. Pt has been afebrile.
--- NOTE | 2020-10-11 17:27 | PM.PN.1 ---
Subjective Subjective Date Patient Seen: 10/11/20 Interval history: Patient is a 84-year-old male with a history of chronic respiratory failure on home oxygen at night, COPD, recent pneumonia, admitted to the hospital for progressive shortness of breath and acute on chronic respiratory failure. Patient reports he continues to be short of breath. At rest on 2 L of oxygen his O2 sat is 95%. However when taking the oxygen off the patient desaturates to 88 89% in bed while talking. He denies any cough. Patient feels about the same Exam Vital Signs (past 8 hours): - 10/11/20 11:33 10/11/20 12:00 10/11/20 16:10 Temperature 97.8 F 97.9 F Pulse Rate 62 61 63 Respiratory Rate 23 14 20 Blood Pressure 143/73 H 142/92 H Pulse Oximetry 93 93 Oxygen Delivery Method Nasal Cannula Oxygen Flow Rate 1 Narrative Exam Narrative: Elderly male lying in bed short of breath at rest Lungs: Decreased breath sounds bilaterally, no rhonchi crackles or wheezing Cardiac exam: Regular rate rhythm normal S1-S2 with a 2/6 systolic ejection murmur Abdomen: Obese soft nontender no hepatosplenomegaly Extremities: No edema Objective Labs Result Diagrams: 10/11/20 04:50 10/11/20 04:50 Labs: Laboratory Results - last 24 hr 10/11/20 10/11/20 04:50 04:50 WBC 11.1 H D RBC 2.26 L Hgb 8.0 L Hct 24.4 L MCV 108.0 H MCH 35.5 H MCHC 32.8 RDW 16.3 H Plt Count 383 Sodium 139 Potassium 4.7 Chloride 103 Carbon Dioxide 34 H BUN 35 H Creatinine 1.54 H Estimated GFR 43.5 L BUN/Creatinine Ratio 22.7 H Glucose 124 H Calcium 9.7 PFSH Medical History Adenocarcinoma of right lung, stage 1 (~05/10/20) Anemia Benign prostatic hyperplasia (01/29/12) Bradycardia Cellulitis Centrilobular emphysema (12/13/16) Cholesteatoma (09/10/12) Chronic kidney disease (CKD) stage G3a/A1, moderately decreased glomerular filtration rate (GFR) between 45-59 mL/min/1.73 square meter and albuminuria creatinine ratio less than 30 mg/g COPD (chronic obstructive pulmonary disease) Hemorrhagic cerebrovascular accident (CVA) (~2006) Hydronephrosis, left Hyperlipidemia Hypertension Lung cancer Macrocytic anemia (07/06/16) Mild alcohol abuse (03/26/15) Olecranon bursitis Peripheral vascular disease of foot (05/31/17) Sinusitis Stenosis of left femoral artery Stroke Substance abuse Syncope Syncope and collapse (09/10/12) Tobacco use disorder, continuous (09/10/12) Transient cerebral ischemia (04/23/12) Traumatic compression fracture of seventh thoracic vertebra, sequela (10/09/16) Tubular adenoma Urinary retention Surgical History History of carpal tunnel repair (03/02/15) History of cataract removal with insertion of prosthetic lens (02/16/15) History of cataract removal with insertion of prosthetic lens (03/09/15) History of tonsillectomy Status post appendectomy Status post colonoscopy (10/06/09) Status post lobectomy of lung (~04/2020) Status post repair of hydrocele (05/22/11) Family History Brother Lung cancer Father Lung cancer Mother Migraines Social History marital status: number of children: 2 household members: spouse Smoking Status: Current every day smoker Tobacco: How many years used: 69 quit status: considering quitting alcohol intake: current caffeine: Yes Assessment & Plan Assessment & Plan narrative: This patient is a 84-year-old male patient with a history of adenocarcinoma of the lung in the right upper status post resection, history of TIA and CVA, COPD, bradycardia chronic kidney disease stage 3, thoracic compression, urinary retention and BPH who presents to the hospital with shortness of breath. Patient was discharged from [facility] 6 days ago for was hospitalized for treatment of pneumonia receiving azithromycin and cefdinir. The patient completed his course of antibiotics. 1. Acute on chronic respiratory failure with hypoxemia secondary to bacterial pneumonia with recent treatment with oral antibiotics, now with evidence of acute COPD exacerbation. -the patient improved while treated at [facility], he had worsening shortness of breath following discharge and found hypoxemic. Imaging shows worsening opacities consistent with a pneumonia. He is coughing bloody sputum and has wheezes consistent with COPD. He is on 2L O2 at baseline -chest x-ray changes consistent with chronic obstructive pulmonary physiology, new ill-defined left basilar opacities and patchy right basilar opacities small bilateral pulmonary effusions. -CT angio finds no pulmonary emboli, notes bilateral pleural effusions with particular opacities, scattered pulmonary nodular opacities. -COVID negative. Respiratory panel is negative. -initially ordered for vanc/levaquin/zosyn, but MRSA swab negative, and does not need double pseudomonas coverage. So on just zosyn for now -for COPD ordered prednisone, and scheduled albuterol and ipratropium nebs, with PRN albuterol for worse SOB -patient continues to be hypoxic at rest. He likely will need chronic oxygen at home. He currently is only using it at night intermittently. Patient has chronic respiratory failure and will need to be on oxygen at home 2. Chronic macrocytic anemia present on admission, active. -admission labs reveal hemoglobin of 8.7, on 10/09 down to 7.8. His hemoglobin was 10.1 on 09/27/2020. -anemia is complicated by chronic kidney disease as well as history of adenocarcinoma lung cancer. -patient is on B12 and thiamine supplement, will add folic acid 1 mg daily. -has remained stable with no evidence of bleeding or further hemoglobin drop so will continue to monitor, has no current indication for transfusion 3. Chronic kidney disease stage III, chronic, stable -patient is a creatinine of 1.52 on admission labs which approximates his baseline renal function. His last creatinine on 09/22/2020 was 1.88, on 10/10 was 1.6. -will avoid renal toxic agents and renally dose medications as indicated. -will follow-up renal function on serial chemistries. -will continue to follow renal function, the creatinine likely at baseline 4. Hypertension, chronic, stable -patient's blood pressure is 146/64 upon admission to the emergency department and remains stable upon admission to the acute care floor. -will continue patient's amlodipine 5 mg twice daily. 5. Adenocarcinoma of the lung, chronic, stable. -patient had lung resection, patient cannot state whether was lobectomy or wedge resection. -patient did not undergo chemo or radiation therapies -CT findings difficult to determine if recurrence, is being followed as outpatient, and will need follow CT for further eval for possible masses once infection clears Patient continues to be significantly symptomatic with minimal exertion. He could benefit from pulmonary rehab. The patient will need oxygen at rest and with activity. Will ask for PT consultation given his significant shortness of breath and recent readmission.
[2020-10-11] MEDS: DOCUSATE 100 MG CAPSULE PO (22:05)
[2020-10-12 00:15] VITALS: BP 145/70; PULSE 54; RESP 18; TEMP 36.3; O2SAT 92
--- NOTE | 2020-10-12 01:38 | PC.NURSE ---
shift summary- A/O x4, Pt desated to mid 80's while sleeping, bumped up Ox to 2L nc, pt sating in 90's, LLL crackranulfo, Tele; 1600 NSR 60, 1999 SB 57. Tele DC's @ 1999. Pt SBA to BR @ 2100 for BM soft formed then loose. RFA SL. Call light in reach.
[2020-10-12] MEDS: PIPERACILLIN-TAZO 3.375 GM/50 ML FROZ.PIGGY IV ×2 (03:44→10:20)
[2020-10-12 04:00] VITALS: BP 135/72; PULSE 53; RESP 20; TEMP 36.6; O2SAT 94
[2020-10-12 06:05] VITALS: PULSE 52; RESP 16; O2SAT 93
[2020-10-12] MEDS: ALBUTEROL/IPRATROPIUM 3 ML AMPUL INH (06:05)
[2020-10-12 06:06] LABS: Add Manual Diff / Slide Review NO; Basophils Absolute Auto 0 /uL (0-100); Basophils Percent Auto 0.3 % (0-2); Eosinophils Absolute Auto 0 /uL (0-450); Eosinophils Percent Auto 0.4 % (2-4); Hematocrit 23.9 % (41-53); Hemoglobin 8.3 g/dL (13.5-17.5); Lymphocytes Absolute Auto 1600 /uL (1100-4500); Lymphocytes Percent Auto 15.6 % (25-40); Mean Corpuscular HGB Conc 34.6 % (30-36); Mean Corpuscular Hemoglobin 37.3 PG (26-34); Mean Corpuscular Volume 107.8 fL (80-100); Monocytes Absolute Auto 1400 /uL (0-900); Monocytes Percent Auto 13.7 % (3-14); Neutrophils Absolute Auto 7300 /uL (1500-7000); Platelet Count 359 X10^3/uL (150-400); Red Blood Cell Count 2.21 X10^6/uL (4.5-5.9); Red Cell Distribution Width 16.4 % (11.6-14.8); White Blood Cell Count 10.4 X10^3/uL (4.5-11.0)
[2020-10-12 06:13] LABS: Alanine Aminotransferase 24 IU/L (<50); Albumin 2.9 g/dL (3.5-5.0); Alkaline Phosphatase 74 U/L (38-126); Aspartate Aminotransferase 22 IU/L (17-59); BUN Creatinine Ratio 21.9 (6-22); Bilirubin Total 0.2 mg/dL (0.2-1.3); Blood Urea Nitrogen 33 mg/dL (9-20); Calcium 9.3 mg/dL (8.4-10.2); Carbon Dioxide 35 mmol/L (22-32); Chloride 102 mmol/L (98-107); Estimated Glomerular Filt Rate 44.5 mL/min (>60); Glucose 102 mg/dL (80-110); HEMOLYSIS < 15 (0-50); Potassium 4.5 mmol/L (3.4-5.1); Sodium 138 mmol/L (137-145); Total Protein 5.9 g/dL (6.3-8.2)
[2020-10-12 08:12] VITALS: BP 117/72; PULSE 58; RESP 22; TEMP 36.3; O2SAT 94
--- NOTE | 2020-10-12 08:21 | PM.DS.1 ---
History of Present Illness History of Present Illness Date Patient Seen: 10/12/20 Chief complaint: states needs blood transfusion Narrative: Mr. 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 The patient was being seen at his primary care provider where the patient ambulated independently to the exam room with increasing shortness of breath during the walk finding his O2 sat to be 69-74%RA. The patient improved with rest and oxygen therapy continue to require 1 L to maintain a sat 90%. Patient was recently admitted to [facility] from 09/27/2020 through 10/02/2020 where he was evaluated for bradycardia and evaluation for pacemaker. Was felt that time the patient's bradycardia was secondary to comorbid conditions, sepsis and pneumonia. The patient completed a course of azithromycin while admitted and was discharged home to complete a course of cefdinir. Since returning home the patient has reported worsening shortness of breath. The patient reports coughing up reddish pink sputum. He reports no systemic symptoms of fevers or chills, nasal congestion or sore throat. Denies complaints chest pain that does endorse left posterior flank ache. Denies abdominal pain and has had no nausea vomiting, diarrhea or constipation. He reports his last bowel movement was this morning. He denies urinary difficulty is not nocturia 1-3 times nightly. Upon arrival ER the patient has a temperature 98.4?, heart rate of 58, blood pressure 146/64, respirations 30, saturating 93% on 1 liters/minute nasal cannula. Chest x-ray: Interval development of left basilar airspace opacities with increased right basilar opacity suggestive multifocal pneumonia. Mild/early pulmonary edema not excluded if clinically appropriate. CT angiogram of the chest: No pulmonary embolism, interval worsening of bilateral effusions with particular opacities suggestive of infection or inflammation, scattered pulmonary nodular opacities are also present suggestive of inflammation or infection. On laboratory analysis the patient has white count of 6.1 with no shift, 8 hemoglobin of 8.7 with hematocrit of 26.6, MCV of 108, platelets of 371. Coagulation studies within normal limits. On chemistry electrolytes within normal limits with a BUN of 42 and a creatinine of 1.52. Liver functions are normal range an albumin 3.6. His total CK is 67, troponin of less than 0.012. His proBNP is 964. Procalcitonin is 0.31. His COVID screening is negative. The patient was rhythm discharged from [facility] 6 days ago and is admitted to the hospitalist service today for healthcare acquired pneumonia. Discharge Providers Provider Date of admission: 10/08/20 20:27 Discharge Date: 10/12/20 Primary care physician: Navya Rodriguez DO Consults: 10/08/20 22:32 Consult to Dietitian, Adult Routine Comment: Reason For Exam: Macrocytic anemia Consult to Discharge Planning Routine Comment: Consult to Physical Therapy Evaluate & Treat Comment: Physician Instructions: Evaluate and Treat 10/11/20 17:32 Consult to Physical Therapy Evaluate & Treat Comment: Physician Instructions: Evaluate and Treat Discharge provider: Mary Noland MD Summary Hospital Course Discharge Diagnosis: 1. Acute respiratory failure, oxygen saturation continues to drop to 55-60% on room air with minimal activity. Patient with associated shortness of breath. He is oxygen dependent 2. Probable Gram-negative pneumonia 3. COPD 4. Adenocarcinoma of the lung, with a remote history of right upper lobe resection 5. Hypertension 6. Nicotine dependence 7. Macrocytic anemia 8. Chronic kidney disease stage 3 Hospital Course: Patient was admitted to the hospital for acute respiratory failure. He was found to be markedly hypoxic upon evaluation at his primary care provider's office. Patient was admitted to the hospital and treated for Gram-negative pneumonia. MRSA swab of his nares was negative. Patient was placed on antibiotics, nebulizers, and steroids. He continued to be markedly hypoxic on room air. The patient would recover with 2 L back to the 90% range. Patient continues to smoke. We had a long discussion regarding nicotine dependence and the need to discontinue smoking as the patient appears to be oxygen dependent. He currently is using oxygen at home at night however he needs it both day and night given his persistent hypoxia. The patient continues to be short of breath with minimal exertion however he improves and recovers quite quickly. He feels he is back to his baseline and is ready to return home. The patient was offered pulmonary rehab which he declined. He was offered home health nursing which he reluctantly agreed to to have. Overall the patient has improved significantly is deemed appropriate for discharge and arrangements were made for him to discharge home. Exam Vital Signs (past 8 hours): - 10/12/20 04:00 10/12/20 06:05 Temperature 97.9 F Pulse Rate 53 L 52 L Respiratory Rate 20 16 Blood Pressure 135/72 Pulse Oximetry 94 93 Oxygen Delivery Method Nasal Cannula Oxygen Flow Rate 1 Narrative Exam Narrative: Elderly male resting comfortably with noted acute distress. Patient got up to the restroom to use the bathroom. Upon returning to the bed his oxygen saturation dropped to 66% on room air. He was placed back on oxygen and within a few minutes his O2 sat improved to the 90% range. Lungs: Decreased breath sounds with scattered rhonchi Cardiac exam: Regular rate and rhythm normal S1-S2 with an occasional extra beat Abdomen: Soft nontender nondistended Extremities: Trace edema Objective Labs Result Diagrams: 10/12/20 05:50 10/12/20 05:50 Labs: Laboratory Results - last 24 hr 10/12/20 10/12/20 05:50 05:50 WBC 10.4 RBC 2.21 L Hgb 8.3 L Hct 23.9 L MCV 107.8 H MCH 37.3 H MCHC 34.6 RDW 16.4 H Plt Count 359 Neut % (Auto) 70.0 Lymph % (Auto) 15.6 L [place] % (Auto) 13.7 Eos % (Auto) 0.4 L Baso % (Auto) 0.3 Neut # (Auto) 7300 H Lymph # (Auto) 1600 [place] # (Auto) 1400 H Eos # (Auto) 0 Baso # (Auto) 0 Sodium 138 Potassium 4.5 Chloride 102 Carbon Dioxide 35 H BUN 33 H Creatinine 1.51 H Estimated GFR 44.5 L BUN/Creatinine Ratio 21.9 Glucose 102 Calcium 9.3 Total Bilirubin 0.2 AST 22 ALT 24 Alkaline Phosphatase 74 Total Protein 5.9 L Albumin 2.9 L Globulin 3.0 Albumin/Globulin Ratio 1.0 [facility] Medical History Adenocarcinoma of right lung, stage 1 (~05/10/20) Anemia Benign prostatic hyperplasia (01/29/12) Bradycardia Cellulitis Centrilobular emphysema (12/13/16) Cholesteatoma (09/10/12) Chronic kidney disease (CKD) stage G3a/A1, moderately decreased glomerular filtration rate (GFR) between 45-59 mL/min/1.73 square meter and albuminuria creatinine ratio less than 30 mg/g COPD (chronic obstructive pulmonary disease) Hemorrhagic cerebrovascular accident (CVA) (~2006) Hydronephrosis, left Hyperlipidemia Hypertension Lung cancer Macrocytic anemia (07/06/16) Mild alcohol abuse (03/26/15) Olecranon bursitis Peripheral vascular disease of foot (05/31/17) Sinusitis Stenosis of left femoral artery Stroke Substance abuse Syncope Syncope and collapse (09/10/12) Tobacco use disorder, continuous (09/10/12) Transient cerebral ischemia (04/23/12) Traumatic compression fracture of seventh thoracic vertebra, sequela (10/09/16) Tubular adenoma Urinary retention Surgical History History of carpal tunnel repair (03/02/15) History of cataract removal with insertion of prosthetic lens (02/16/15) History of cataract removal with insertion of prosthetic lens (03/09/15) History of tonsillectomy Status post appendectomy Status post colonoscopy (10/06/09) Status post lobectomy of lung (~04/2020) Status post repair of hydrocele (05/22/11) Family History Brother Lung cancer Father Lung cancer Mother Migraines Social History marital status: number of children: 2 household members: spouse Smoking Status: Current every day smoker Tobacco: How many years used: 69 quit status: considering quitting alcohol intake: current caffeine: Yes Discharge Assessment & Plan Assessment and Plan Assessment: 1. Acute on chronic respiratory failure, present on admission 2. Probable Gram-negative pneumonia 3. COPD 4. Nicotine dependence 5. Chronic kidney disease, stage III 6. History of adenocarcinoma status post left upper lobe lobectomy 7. Hypertension 8. Hyperlipidemia 9. Macrocytic anemia Plan of Treatment: Patient will be discharged home . He has been counseled to discontinue nicotine and smoking Patient is also been consult that he is now oxygen dependent and will need oxygen for all activity Will arrange for home health nurse to evaluate the patient at discharge He will follow-up with his primary care provider in 1-2 weeks Discharge Plan Discharge Plan Patient Disposition: Home Health Service Transfer to: [facility] Discharge Comment: post hospital visit given readmission for COPD Discharge orders & Medications Prescriptions: New prednisone 20 mg Tablet 40 mg PO DAILY 5 Days RF: 0 amoxicillin-pot clavulanate [Augmentin] 875-125 mg tablet 1 tab PO BID Qty: 10 RF: 0 Continued fluticasone furoate-vilanterol 200-25 mcg/dose blister with device 1 inhalation INHALATION DAILY Qty: 60 RF: 6 Incruse Ellipta 62.5 mcg/actuation blister with device 62.5 mcg INHALATION QDAY Qty: 1 RF: 5 albuterol sulfate 90 mcg/actuation HFA aerosol inhaler 2 puff INHALATION Q4H PRN (Reason: shortness of breath or wheezing) Qty: 1 RF: 2 tamsulosin 0.4 mg capsule 0.8 mg PO DAILY Qty: 60 RF: 0 rosuvastatin 10 mg tablet 5 mg PO DAILY Qty: 45 RF: 1 amlodipine [Norvasc] 5 mg tablet 5 mg PO BID Qty: 180 RF: 3 multivitamin [Tab-A-Iqra] Tablet 1 tab PO DAILY Qty: 30 RF: 0 thiamine HCl (vitamin B1) [Vitamin B-1] 100 mg Tablet 100 mg PO DAILY Qty: 30 RF: 0 B12 Active 1,000 mcg tablet,chewable 1,000 mcg PO DAILY RF: 0 Discontinued prednisone 20 mg tablet 40 mg PO DAILY 5 Days Qty: 10 RF: 0 Follow up/Referrals: Navya Rodriguez DO [Primary Care Provider] - Diet/Activity/Treatments Diet: Low-sodium and Low-cholesterol Activity: as tolerated Oxygen: patient will require 2-3 liters of oxygen during the day, as well as at nig Discharge Data Primary Care Provider: Navya Rodriguez
[2020-10-12] MEDS: ROSUVASTATIN 10 MG TABLET 5 MG PO (10:03)
[2020-10-12] MEDS: AMLODIPINE 5 MG TABLET PO (10:03)
[2020-10-12] MEDS: FOLIC ACID 1 MG TABLET PO (10:03)
[2020-10-12] MEDS: SODIUM CHLORIDE 0.9% FLUSH 10 ML IV (10:05)
[2020-10-12] MEDS: predniSONE 20 MG TABLET 40 MG PO (10:05)
[2020-10-12] MEDS: TAMSULOSIN 0.4 MG CAPSULE 0.8 MG PO (10:05)
[2020-10-12] MEDS: THIAMINE 100 MG TABLET PO (10:05)
[2020-10-12] MEDS: ENOXAPARIN 40 MG/0.4 ML SYRINGE SUBCUT (10:05)
[2020-10-12] MEDS: CYANOCOBALAMIN (VITAMIN B-12) 500 MCG TABLET 1000 MCG PO (10:09)
--- NOTE | 2020-10-12 11:20 | PC.NURSE ---
Day shift: Paperwork signed and all questions answered. scripts sent to Pt's pharmacy by electronic. Pt has all personal belongings. Pt on 1L NC with O2 of 94%. Per Pt will require O2 during the day when he is home. Per Pt My spouse used to be a nurse. Pt has Home Health all set up now per Viktoria as well. Pt's spuse will be here today at approx 1230 to take him home.
--- NOTE | 2020-10-12 11:33 | CM.DPC ---
Addendum entered by Viktoria Butler LPN 10/12/20 13:54: Copy of IMM issues to pt as per protocol this morning. Original Note: DCP: continued: case received, EMR reviewed and discussed in Team Rounds. Dr. Noland noted she was discharging pt today and very much wanted him to followup with HH RN. Met then with pt and introduced self and role. Pt reluctantly agrees to HH RN and says he knows that he needs to stop smoking, has intended this for years but it is a difficult thing to do. She states his Arely, a retired nurse, is very concerned about his supplemental oxygen needs and his continued smoking habit. agency list: discussed. No choice, has never had this. Referral to [facility] given (no vendor choice for this week.). Referral given to Pamela/[facility]/accepts. Face sheet, Face to Face document re faxed to her. ERROL Pittman agrees to fax rest of clinical including the orders and dc summary. Pt's will be here about 1230 to pick him up. P: home today/[facility]. Pt has the HH brochure. Will follow prn until pt leaves.
--- NOTE | 2020-10-12 12:57 | PC.NURSE ---
Day shift: Pt left unit via WC at approx 1300. Taken to car driven by his spouse by ROMEL Kwok.
--- NOTE | 2020-10-12 15:37 | CM.DPNOTE ---
Faxed referral packet to [facility] per Viktoria. Received fax confirmation. Called and confirmed with Pamela and she did have the packet. Toya Luque CM Asst.
== END 2020-10-12 12:58 | disposition home health service (06) | DRG 177 ==
LOC: ED 18:06 → AC 20:27
PROVIDERS: Emergency Medicine; Internal Medicine; Nurse Practitioner Family; Admitting Provider Nurse Practitioner Adult Health; Emergency Provider Emergency Medicine; PCP Family Medicine; Referring Provider Emergency Medicine; Visit Provider Nurse Practitioner Adult Health
DX: J15.6 Pneumonia due to other Gram-negative bacteria (principal); J96.21 Acute and chronic respiratory failure with hypoxia; J44.1 Chronic obstructive pulmonary disease with (acute) exacerbation; I12.9 Hypertensive chronic kidney disease with stage 1 through stage 4 chronic kidney disease, or unspecified chronic kidney disease; N18.31 Chronic kidney disease, stage 3a; Z99.81 Dependence on supplemental oxygen; D53.9 Nutritional anemia, unspecified; Z71.6 Tobacco abuse counseling; E78.5 Hyperlipidemia, unspecified; Z86.73 Personal history of transient ischemic attack (TIA), and cerebral infarction without residual deficits; Z20.822 Contact with and (suspected) exposure to COVID-19; F17.210 Nicotine dependence, cigarettes, uncomplicated; N40.1 Benign prostatic hyperplasia with lower urinary tract symptoms; R33.8 Other retention of urine
CPT/HCPCS: 36415; 71046; 71275; 80048; 80053; 81001; 82550; 82962; 83605; 83690; 83735; 83880; 84145; 84484; 85007; 85025; 85027; 85610; 85730; 86140; 86850; 86900; 86901; 87040; 87070; 87205; 87633; 87635; 87797; 93005; 93010; 94640; 94760; 94762; 96365; 97116; 97162; 97530; 99214; 99285; 99406; A9270; J1650; J1956; J2543

== ENCOUNTER 2020-10-21 13:42 | Emergency (ER) | payer MEDICARE, OTHER, SELFPAY ==
[2020-10-08 22:58] VITALS: BMI 25.0
[2020-10-21] VITALS (15 sets, daily range): BP systolic 137–176; BP diastolic 62–77; PULSE 40–52; RESP 13–24; TEMP 35.7; O2SAT 92–100; BMI 25.8
--- NOTE | 2020-10-21 16:25 | ED_ITS ---
HPI - Back Pain/Injury General Chief Complaint: Back Pain/Injury Stated Complaint: swollen feet, back pain x3 Time Seen by Provider: 10/21/20 16:25 Source: patient Limitations: no limitations History of Present Illness HPI Narrative: 84-year-old gentleman with a history Of lung cancer, prior stroke, COPD oxygen dependent at night, chronic bradycardia, stage 3 kidney disease are BPH with urinary retention presents complaining of back pain in the right flank area after a mechanical fall where he landed on his bottom about 10 days ago and lower extremity edema worse over the past 3 days. He has noticed slight increase in dyspnea and has begun using his oxygen occasionally during the day. Continues to note bradycardia but isn't complaining of any chest pain. No vomiting, or diarrhea. Was hospitalized at [facility] in mid September for pneumonia and again hospitalized at [facility] for recurrent pneumonia and discharged approximately 10 days ago. Related Data Home Medications Medication Instructions Recorded Confirmed mecobalamin (vitamin B12) 1,000 1,000 mcg PO DAILY 08/24/20 10/21/20 mcg chewable tablet Previous Rx's Medication Instructions Recorded multivitamin [Tab-A-Iqra] 1 tab PO DAILY #30 tab 09/14/19 thiamine HCl (vitamin B1) [Vitamin 100 mg PO DAILY #30 tab 09/14/19 B-1] amlodipine 5 mg tablet 5 mg PO BID #180 tab 01/23/20 rosuvastatin 10 mg tablet 5 mg PO DAILY #45 tab 01/23/20 fluticasone furoate 200 1 inhalation INHALATION DAILY #60 03/05/20 mcg-vilanterol 25 mcg/dose each inhalation powder umeclidinium 62.5 mcg/actuation 62.5 mcg INHALATION QDAY #1 inh 03/05/20 blister powder for inhalation albuterol sulfate 90 mcg/actuation 2 puff INHALATION Q4H PRN #1 05/31/20 aerosol inhaler inhalation tamsulosin 0.4 mg capsule 0.8 mg PO DAILY #60 cap 08/19/20 amoxicillin-pot clavulanate 1 tab PO BID #10 tab 10/12/20 amoxicillin-pot clavulanate 1 tab PO BID #10 tab 10/12/20 [Augmentin] prednisone 40 mg PO DAILY #5 tab 10/12/20 furosemide 20 mg PO DAILY #30 tab 10/21/20 Allergies Allergy/AdvReac Type Severity Reaction Status Date / Time No Known Drug Allergies Allergy Unknown Verified 10/21/20 13:42 Review of Systems Review of Systems Narrative: Remainder of review of systems is otherwise unremarkable Patient History Medical History Adenocarcinoma of right lung, stage 1 (~05/10/20) Anemia Benign prostatic hyperplasia (01/29/12) Bradycardia Cellulitis Centrilobular emphysema (12/13/16) Cholesteatoma (09/10/12) Chronic kidney disease (CKD) stage G3a/A1, moderately decreased glomerular jose manuel tration rate (GFR) between 45-59 mL/min/1.73 square meter and albuminuria creatinine ratio less than 30 mg/g COPD (chronic obstructive pulmonary disease) DNR (do not resuscitate) Hemorrhagic cerebrovascular accident (CVA) (~2006) Hydronephrosis, left Hyperlipidemia Hypertension Lung cancer Macrocytic anemia (07/06/16) Mild alcohol abuse (03/26/15) Olecranon bursitis Peripheral vascular disease of foot (05/31/17) Sinusitis Stenosis of left femoral artery Stroke Substance abuse Syncope Syncope and collapse (09/10/12) Tobacco use disorder, continuous (09/10/12) Transient cerebral ischemia (04/23/12) Traumatic compression fracture of seventh thoracic vertebra, sequela (10/09/16) Tubular adenoma Urinary retention Surgical History History of carpal tunnel repair (03/02/15) History of cataract removal with insertion of prosthetic lens (02/16/15) History of cataract removal with insertion of prosthetic lens (03/09/15) History of tonsillectomy Status post appendectomy Status post colonoscopy (10/06/09) Status post lobectomy of lung (~04/2020) Status post repair of hydrocele (05/22/11) Family History Brother Lung cancer Father Lung cancer Mother Migraines Social History marital status: number of children: 2 household members: spouse Smoking Status: Current every day smoker Tobacco: How many years used: 69 quit status: considering quitting alcohol intake: current caffeine: Yes Smoking Status: Current every day smoker alcohol intake frequency: 3 or more drinks per day Substance Use Type: does not use Exam Narrative Exam Narrative: General: Chronically ill appearing, in no acute distress. Able to participate in history and physical taking HEENT: Moist mucous membranes, normal sclera with reactive pupils, Neck: No JVD, supple Respiratory: Lungs are minor scattered rales but no significant rhonchi. Full and symmetrical air movement Cardiac: Bradycardic but otherwise Regular rate and rhythm no murmurs no bruits Abdomen: Soft, nontender, good bowel tones, pain in the right flank area without contusion or specific localizing findings Skin: Pale, multiple bruising no obvious rashes Neurologic: Grossly neurologically intact with no obvious asymmetries or abnormalities Extremities: No trauma, 3+ lower extremity edema without chronic venous stasis changes Psych: Cooperative, flat affect Initial Vital Signs Initial Vital Signs: Vital Signs Temperature 96.3 F L 10/21/20 13:48 Pulse Rate 44 L 10/21/20 13:48 Respiratory Rate 16 10/21/20 13:48 Blood Pressure 138/63 10/21/20 13:48 Pulse Oximetry 99 10/21/20 13:48 Course Orders Ordered: ED Orders 10/21/20 16:42 XR chest 1V Stat EKG-12 Lead Stat 10/21/20 16:45 Complete Blood Count AUTO DIFF Stat Comprehensive Metabolic Panel Stat Magnesium Stat NT-proBNP (BNP-Adult 18+) Stat Troponin I Stat 10/21/20 17:39 XR lumbar spine 2-3V Stat Discontinued Medications Lidocaine (Remove Lidocaine Patch) 1 each TOP NOW ONE Stop: 10/21/20 17:40 Last Admin: 10/21/20 17:49 Dose: Not Given Documented by: NICOLE Lidocaine (Lidocaine Patch 1 Each Adh..Patch) 1 each TOP NOW ONE Stop: 10/21/20 17:49 Last Admin: 10/21/20 17:52 Dose: 1 each Documented by: NICOLE Vital Signs Vital signs: Vital Signs - 8 hr 10/21/20 13:48 10/21/20 16:15 10/21/20 16:30 Temperature 96.3 F L Pulse Rate 44 L 41 L 41 L Respiratory Rate 16 22 14 Blood Pressure 138/63 Pulse Oximetry 99 98 98 10/21/20 16:46 10/21/20 17:00 10/21/20 17:30 Temperature Pulse Rate 40 L 40 L 42 L Respiratory Rate 13 21 18 Blood Pressure 153/65 H 149/62 H 176/74 H Pulse Oximetry 97 97 96 10/21/20 18:00 10/21/20 18:01 10/21/20 18:25 Temperature Pulse Rate 46 L 44 L 42 L Respiratory Rate 24 19 19 Blood Pressure 168/72 H 166/72 H Pulse Oximetry 96 98 97 10/21/20 18:30 10/21/20 19:00 10/21/20 19:01 Temperature Pulse Rate 42 L 44 L 44 L Respiratory Rate 16 21 17 Blood Pressure 167/77 H 168/71 H Pulse Oximetry 95 98 100 MDM - Back Pain/Injury Medical Records Attestation: I reviewed the patient's medical records. Lab Data Attestation: I reviewed the patient's lab results. Result diagrams: 10/21/20 16:45 10/21/20 16:45 Labs: Lab Results 10/21/20 10/21/20 10/21/20 Range/Units 16:45 16:45 16:45 WBC 7.6 (4.5-11.0) X10^3/uL RBC 2.80 L (4.5-5.9) X10^6/uL Hgb 10.0 L (13.5-17.5) g/dL Hct 30.1 L (41-53) % MCV 107.7 H (80-100) fL MCH 35.8 H (26-34) PG MCHC 33.3 (30-36) % RDW 17.3 H (11.6-14.8) % Plt Count 344 (150-400) X10^3/uL Neut % (Auto) 53.4 (50-75) % Lymph % (Auto) 29.0 (25-40) % [place] % (Auto) 16.2 H (3-14) % Eos % (Auto) 0.8 L (2-4) % Baso % (Auto) 0.6 (0-2) % Neut # (Auto) 4100 (0111-3411) /uL Lymph # (Auto) 2200 (4573-5126) /uL [place] # (Auto) 1200 H (0-900) /uL Eos # (Auto) 100 (0-450) /uL Baso # (Auto) 0 (0-100) /uL Sodium 135 L (137-145) mmol/L Potassium 4.7 (3.4-5.1) mmol/L Chloride 101 (98-107) mmol/L Carbon Dioxide 29 (22-32) mmol/L BUN 50 H (9-20) mg/dL Creatinine 1.61 H (0.66-1.25) mg/dL Estimated GFR 41.3 L (>60) mL/min BUN/Creatinine Ratio 31.1 H (6-22) Glucose 84 (80-110) mg/dL Calcium 9.8 (8.4-10.2) mg/dL Magnesium 2.5 H (1.6-2.3) mg/dL Total Bilirubin 0.3 (0.2-1.3) mg/dL AST 27 (17-59) IU/L ALT 27 (<50) IU/L Alkaline Phosphatase 98 (38-126) U/L Troponin I < 0.012 (0.01-0.034) ng/mL NT-Pro-B Natriuret Pep 349 (<450) pg/mL Total Protein 7.2 (6.3-8.2) g/dL Albumin 3.9 (3.5-5.0) g/dL Globulin 3.3 (1.7-4.1) g/dL Albumin/Globulin Ratio 1.2 (1.0-2.8) MDM Narrative Medical decision making narrative: 84-year-old gentleman with complex medical history presents to the emergency room today mainly complaining of significantly increased lower extremity edema. Recent blood loss was noted and H&H has improved nicely with hemoglobin increasing from 8.3-10.0. There is no evidence of current infection Renal function is relatively stable with creatinine at 1.6 which is consistent with numbers in the last 2 weeks. Albumin is normal at 3.9. Troponin is within normal limits. EKG does show sinus bradycardia with PACs. At this point his renal failure has not worsened, his oncotic pressure has improved, there is no evidence of worsening of congestive heart failure. He may have slightly worsening edema secondary to the worsening bradycardia but at this point does not need hospital admission. Will recommend beginning furosemide and follow-up with his primary care physician within the next week. Discharge Plan Departure Patient Disposition: Home Clinical Impression: Bilateral edema of lower extremity Instructions: DI for Dependent Edema Activity Restrictions/Additional Instructions: Thank you for coming in today You do have a significant amount of lower extremity edema. I am going to give you a prescription for Lasix/furosemide that will increase urine and hopefully improve the swelling. This does need follow-up, please call your primary care physician. It will be nice to know how your swelling is responding to the medication and your physician will likely want to recheck your kidney function as well as potassium levels. With your workup today, there was no evidence of heart failure, worsening anemia (it is in fact getting better), worsening renal function or low albumin levels. I would recommend keeping her feet elevated when you are sitting at home and definitely keep them elevated when you are sleeping. Using compression socks will also be helpful in reducing the amount of edema that you are accumulating. If you have worsening symptoms or concerns, please feel free to return to the ER. Prescriptions: New furosemide 20 mg tablet 20 mg PO DAILY Qty: 30 RF: 0 No Action fluticasone furoate-vilanterol 200-25 mcg/dose blister with device 1 inhalation INHALATION DAILY Qty: 60 RF: 6 Incruse Ellipta 62.5 mcg/actuation blister with device 62.5 mcg INHALATION QDAY Qty: 1 RF: 5 albuterol sulfate 90 mcg/actuation HFA aerosol inhaler 2 puff INHALATION Q4H PRN (Reason: shortness of breath or wheezing) Qty: 1 RF: 2 tamsulosin 0.4 mg capsule 0.8 mg PO DAILY Qty: 60 RF: 0 rosuvastatin 10 mg tablet 5 mg PO DAILY Qty: 45 RF: 1 amlodipine [Norvasc] 5 mg tablet 5 mg PO BID Qty: 180 RF: 3 multivitamin [Tab-A-Iqra] Tablet 1 tab PO DAILY Qty: 30 RF: 0 thiamine HCl (vitamin B1) [Vitamin B-1] 100 mg Tablet 100 mg PO DAILY Qty: 30 RF: 0 amoxicillin-pot clavulanate [Augmentin] 875-125 mg tablet 1 tab PO BID Qty: 10 RF: 0 prednisone 20 mg tablet 40 mg PO DAILY Qty: 5 RF: 0 amoxicillin-pot clavulanate 875-125 mg tablet 1 tab PO BID Qty: 10 RF: 0 B12 Active 1,000 mcg tablet,chewable 1,000 mcg PO DAILY RF: 0 Referrals: Navya Rodriguez DO [Primary Care Provider] -
--- NOTE | 2020-10-21 16:42 | DI.RAD.S_ITS ---
PROCEDURE: XR CHEST 1V INDICATIONS: dyspnea TECHNIQUE: One view of the chest was acquired. COMPARISON: [facility], CT, CT ANGIO CHEST PE PROTOCOL, 10/08/2020, 19:04. [facility], CR, XR CHEST 1V, 09/27/2020, 13:53. Outside Facility, RG, CT THORAX W/O CONTRAST, 09/28/2020, 3:48. [facility], CR, XR CHEST 2V, 10/08/2020, 13:16. FINDINGS: Surgical changes and devices: There is surgical sutures superiorly in the right hemithorax redemonstrated. Lungs and pleura: There are persistent confluent airspace opacities in the left lung base consistent with consolidation. This appears decreased peripherally but increased opacities are demonstrated medially. There may be a component of associated atelectasis. The right lung demonstrates improved aeration with mild residual linear atelectasis. There is hyperinflation of the lungs with flattening of the hemidiaphragms compatible with COPD. No pleural effusions or pneumothorax. Mediastinum: Mediastinal contours appear unchanged. Heart size is normal. Bones and chest wall: No suspicious bony lesions. Overlying soft tissues appear unremarkable. IMPRESSION: 1. Persistent left basilar consolidation which appears decreased peripherally but increased medially. Findings likely represent pneumonia with possible associated atelectasis. Consider short-term follow-up to demonstrate resolution. Dictated by: Kenroy Marvin M.D. on 10/21/2020 at 17:31 Approved by: Kenroy Marvin M.D. on 10/21/2020 at 17:34
[2020-10-21 17:02] LABS: Add Manual Diff / Slide Review NO; Basophils Absolute Auto 0 /uL (0-100); Basophils Percent Auto 0.6 % (0-2); Eosinophils Absolute Auto 100 /uL (0-450); Eosinophils Percent Auto 0.8 % (2-4); Hematocrit 30.1 % (41-53); Lymphocytes Absolute Auto 2200 /uL (1100-4500); Mean Corpuscular HGB Conc 33.3 % (30-36); Mean Corpuscular Hemoglobin 35.8 PG (26-34); Mean Corpuscular Volume 107.7 fL (80-100); Monocytes Absolute Auto 1200 /uL (0-900); Monocytes Percent Auto 16.2 % (3-14); Neutrophils Absolute Auto 4100 /uL (1500-7000); Neutrophils Percent Auto 53.4 % (50-75); Platelet Count 344 X10^3/uL (150-400); Red Cell Distribution Width 17.3 % (11.6-14.8); White Blood Cell Count 7.6 X10^3/uL (4.5-11.0)
[2020-10-21 17:09] LABS: Alanine Aminotransferase 27 IU/L (<50); Albumin 3.9 g/dL (3.5-5.0); Albumin Globulin Ratio 1.2 (1.0-2.8); Alkaline Phosphatase 98 U/L (38-126); Aspartate Aminotransferase 27 IU/L (17-59); BUN Creatinine Ratio 31.1 (6-22); Bilirubin Total 0.3 mg/dL (0.2-1.3); Blood Urea Nitrogen 50 mg/dL (9-20); Calcium 9.8 mg/dL (8.4-10.2); Carbon Dioxide 29 mmol/L (22-32); Chloride 101 mmol/L (98-107); Estimated Glomerular Filt Rate 41.3 mL/min (>60); Globulin 3.3 g/dL (1.7-4.1); Glucose 84 mg/dL (80-110); HEMOLYSIS < 15 (0-50); Magnesium 2.5 mg/dL (1.6-2.3); Potassium 4.7 mmol/L (3.4-5.1); Sodium 135 mmol/L (137-145); Total Protein 7.2 g/dL (6.3-8.2)
[2020-10-21 17:16] LABS: NT-proBNP (BNP-Adult 18+) 349 pg/mL (<450)
[2020-10-21 17:19] LABS: Troponin I < 0.012 ng/mL (0.01-0.034)
--- NOTE | 2020-10-21 17:39 | DI.RAD.S_ITS ---
PROCEDURE: XR LUMBAR SPINE 2-3V INDICATIONS: fall, pain TECHNIQUE: 3 views of the lumbar spine were acquired. COMPARISON: [facility], CT, CT KIDNEY URETER BLADDER (KUB), 08/31/2020, 12:48. FINDINGS: Bones: 5 [id number] vertebrae are present. There is normal bony alignment. N there may be slight progression of T12 vertebral body height loss compared to recent CT scan. There is a mild inferior endplate deformity of L2 which is chronic and stable. Grade 1 anterolisthesis L5 on S1 is stable. No change in multilevel moderate disc height loss. No suspicious bony lesions. Soft tissues: Overlying bowel gas pattern is normal. No suspicious soft tissue calcifications. Heavy atherosclerotic calcification. IMPRESSION: 1. Possible progression of mild T12 compression fracture. Correlate with site of tenderness. 2. Otherwise stable degenerative changes of the lumbar spine. 3. Heavy atherosclerotic calcification. Dictated by: Shyla Beaulieu M.D. on 10/21/2020 at 17:26 Approved by: Shyla Beaulieu M.D. on 10/21/2020 at 17:29
[2020-10-21] MEDS: LIDOCAINE PATCH 1 EACH ADH..PATCH TOP (17:52)
== END 2020-10-21 20:23 | disposition home or self-care (01) ==
PROVIDERS: Emergency Provider Emergency Medicine; PCP Family Medicine
DX: R60.0 Localized edema (principal)
CPT/HCPCS: 36415; 71045; 72100; 80053; 83735; 83880; 84484; 85025; 93005; 99284

== ENCOUNTER 2020-11-03 12:58 | Observation (INO) | payer MEDICARE, OTHER, SELFPAY ==
[2020-10-08 22:58] VITALS: BMI 25.0
[2020-11-03] VITALS (20 sets, daily range): BP systolic 98–143; BP diastolic 48–64; PULSE 34–47; RESP 0–23; TEMP 35.2–36.4; O2SAT 79–100; BMI 24.7; BMI 23.6
--- NOTE | 2020-11-03 13:18 | DI.CT.S_ITS ---
PROCEDURE: CT CHEST WO CON INDICATIONS: right pulmonary nodules TECHNIQUE: Noncontrast 5 mm thick sections acquired from the pulmonary apices to the posterior costophrenic angles. 1 mm lung window, 5 mm thick coronal and sagittal and 7 mm axial MIP reformats were then acquired. For radiation dose reduction, the following was used: automated exposure control, adjustment of mA and/or kV according to patient size. COMPARISON: Outside Facility, RG, CT THORAX W/O CONTRAST, 09/28/2020, 3:48. [facility], CT, CT ANGIO CHEST PE PROTOCOL, 10/08/2020, 19:04. [facility], CR, XR CHEST 1V, 10/21/2020, 17:01. [facility], CR, XR CHEST 1V, 11/03/2020, 13:42. [facility], CT, CT CHEST WO CON, 09/08/2020, 14:32. [facility], CT, CT CHEST WO CON, 01/27/2020, 8:41. FINDINGS: Image quality: Excellent. Lungs and pleura: No acute air space opacities. There has been interval improvement in a reticulonodular pattern of airspace disease at the left lower 3rd lobe, with mild to moderate residual. Improvement in patchy right lower lobe alveolar infiltration also has occurred, with reference to the prior CT scanning from 10/08/20. There is no focus of airspace disease that would suggest interval development of malignancy. Partial right upper lobectomy changes are present, as has been previously the case, indicating likelihood of prior lung carcinoma. No pleural effusions or pneumothorax. Central and peripheral airways are patent and normal in caliber. Centrilobular emphysema is moderately severe. Mediastinum: Heart size is normal. No pericardial effusion. No mediastinal adenopathy by size criteria. Thoracic aorta and central pulmonary arteries are normal in size. Esophagus is normal in caliber. No hiatal hernia. Bones and chest wall: No suspicious bony lesions. No vertebral body compression fractures. No axillary or supraclavicular adenopathy by size criteria. Thyroid gland appears normal where well seen.. Abdomen: Visualized upper abdominal solid organs and bowel loops appear normal in the absence of contrast. IMPRESSION: COPD, moderately severe centrilobular emphysema. Improving reticulonodular pattern of airspace disease left lower lobe, and also improving patchy alveolar infiltration at the posterior right lung base. No pulmonary nodule is seen that would suggest presence of early manifestation of malignancy. COPD, centrilobular emphysema, partial right upper lobectomy, no recurrent mass lesion at the resection site or at the mediastinal and hilar soft tissues. Dictated by: Adelso Vallejo M.D. on 11/03/2020 at 15:07 Approved by: Adelso Vallejo M.D. on 11/03/2020 at 15:12
--- NOTE | 2020-11-03 13:40 | DI.RAD.S_ITS ---
PROCEDURE: XR CHEST 1V INDICATIONS: chest pain TECHNIQUE: One view of the chest was acquired. COMPARISON: [facility], CR, XR CHEST 1V, 10/21/2020, 17:01. FINDINGS: Surgical changes and devices: None. Remote partial pulmonary resection on the right. Lungs and pleura: Patchy bibasilar densities, possibly atelectasis versus scarring. No pleural effusions or pneumothorax. Mediastinum: Mediastinal contours appear normal. Heart size is normal. Bones and chest wall: No suspicious bony lesions. Overlying soft tissues appear unremarkable. IMPRESSION: Remote partial right pulmonary resection. Unchanged patchy bibasilar densities. Comment: It is noted that the patient is scheduled to undergo a CT of the chest without contrast later today. Dictated by: Abdulaziz Morales M.D. on 11/03/2020 at 13:53 Approved by: Abdulaziz Morales M.D. on 11/03/2020 at 13:54
[2020-11-03 13:46] LABS: Add Manual Diff / Slide Review NO; Basophils Absolute Auto 0 /uL (0-100); Basophils Percent Auto 0.8 % (0-2); Eosinophils Absolute Auto 0 /uL (0-450); Eosinophils Percent Auto 0.7 % (2-4); Hematocrit 21.3 % (41-53); Lymphocytes Absolute Auto 1200 /uL (1100-4500); Lymphocytes Percent Auto 20.9 % (25-40); Mean Corpuscular HGB Conc 32.9 % (30-36); Mean Corpuscular Hemoglobin 36.3 PG (26-34); Mean Corpuscular Volume 110.5 fL (80-100); Monocytes Absolute Auto 600 /uL (0-900); Monocytes Percent Auto 11.1 % (3-14); Neutrophils Absolute Auto 3900 /uL (1500-7000); Neutrophils Percent Auto 66.5 % (50-75); Platelet Count 157 X10^3/uL (150-400); Red Blood Cell Count 1.93 X10^6/uL (4.5-5.9); White Blood Cell Count 5.8 X10^3/uL (4.5-11.0)
[2020-11-03 13:47] LABS: Prothrombin Time 10.9 SECONDS (10.1-12.7)
[2020-11-03 13:50] LABS: PTT Partial Thromboplastin Tim 32 SECONDS (26.4-36.2)
[2020-11-03 13:52] LABS: Alanine Aminotransferase 27 IU/L (<50); Albumin 3.6 g/dL (3.5-5.0); Albumin Globulin Ratio 1.2 (1.0-2.8); Alkaline Phosphatase 111 U/L (38-126); Aspartate Aminotransferase 38 IU/L (17-59); BUN Creatinine Ratio 27.6 (6-22); Bilirubin Total 0.3 mg/dL (0.2-1.3); Blood Urea Nitrogen 53 mg/dL (9-20); Calcium 9.7 mg/dL (8.4-10.2); Carbon Dioxide 29 mmol/L (22-32); Chloride 104 mmol/L (98-107); Creatine Kinase 62 U/L (55-170); Estimated Glomerular Filt Rate 33.7 mL/min (>60); Globulin 2.9 g/dL (1.7-4.1); Glucose 120 mg/dL (80-110); HEMOLYSIS < 15 (0-50); Lipase 74 U/L (23-300); Potassium 4.8 mmol/L (3.4-5.1); Sodium 138 mmol/L (137-145); Total Protein 6.5 g/dL (6.3-8.2)
--- NOTE | 2020-11-03 14:00 | ED.GENADULT ---
HPI - General Adult General Chief complaint: Shortness of Breath/Dyspnea Stated complaint: trouble breathing Time Seen by Provider: 11/03/20 14:00 Source: patient Mode of arrival: Wheelchair Limitations: no limitations History of Present Illness HPI narrative: Cancer, prior strokes, oxygen-dependent COPD on 2 L at home, chronic sinus bradycardia, stage 4 chronic kidney disease who presents with increasing weakness general malaise and increasing edema over the last number of days to weeks. He can not put and exact finger on when this started. He has had a couple of falls over the last week none of them have cause any specific pain or injury but do reflect the increasing weakness. He denies fever, chills. He states that the cough that he has is fairly typical has not gotten worse he notes that he uses his albuterol inhaler a couple of times daily and has not needed to increase this. Continues to note sinus bradycardia at home that has been unchanged any complains of no palpitations or chest pain. He has had no vomiting no diarrhea no abdominal pain and has not noticed any black stools recently Related Data Home Medications Medication Instructions Recorded Confirmed mecobalamin (vitamin B12) 1,000 1,000 mcg PO DAILY 08/24/20 11/03/20 mcg chewable tablet fluticasone furoate-vilanterol 1 inh INHALATION DAILY 11/03/20 11/03/20 [Meghan Horn] lidocaine [Blue-Emu Lidocaine 1 patch TOPICAL DAILY PRN 11/03/20 11/03/20 Patch] tamsulosin 0.4 mg PO BEDTIME 11/03/20 11/03/20 Previous Rx's Medication Instructions Recorded multivitamin [Tab-A-Iqra] 1 tab PO DAILY #30 tab 09/14/19 thiamine HCl (vitamin B1) [Vitamin 100 mg PO DAILY #30 tab 09/14/19 B-1] amlodipine 5 mg tablet 5 mg PO BID #180 tab 01/23/20 fluticasone furoate 200 1 inhalation INHALATION DAILY #60 03/05/20 mcg-vilanterol 25 mcg/dose each inhalation powder umeclidinium 62.5 mcg/actuation 62.5 mcg INHALATION QDAY #1 inh 03/05/20 blister powder for inhalation furosemide 20 mg PO DAILY #30 tab 10/21/20 albuterol sulfate 90 mcg/actuation 2 puff INHALATION Q4H PRN #1 10/27/20 aerosol inhaler inhalation Allergies Allergy/AdvReac Type Severity Reaction Status Date / Time No Known Drug Allergies Allergy Unknown Verified 11/03/20 13:15 Review of Systems Review of Systems Narrative: Remainder of complete review of systems is otherwise unremarkable except for that included in the HPI. Patient History Medical History Adenocarcinoma of right lung, stage 1 (~05/10/20) Anemia Benign prostatic hyperplasia (01/29/12) Bradycardia Cellulitis Centrilobular emphysema (12/13/16) Cholesteatoma (09/10/12) Chronic kidney disease (CKD) stage G3a/A1, moderately decreased glomerular filtration rate (GFR) between 45-59 mL/min/1.73 square meter and albuminuria creatinine ratio less than 30 mg/g COPD (chronic obstructive pulmonary disease) DNR (do not resuscitate) Hemorrhagic cerebrovascular accident (CVA) (~2006) Hydronephrosis, left Hyperlipidemia Hypertension Lung cancer Macrocytic anemia (07/06/16) Mild alcohol abuse (03/26/15) Olecranon bursitis Peripheral vascular disease of foot (05/31/17) Sinusitis Stenosis of left femoral artery Stroke Substance abuse Syncope Syncope and collapse (09/10/12) Tobacco use disorder, continuous (09/10/12) Transient cerebral ischemia (04/23/12) Traumatic compression fracture of seventh thoracic vertebra, sequela (10/09/16) Tubular adenoma Urinary retention Surgical History History of carpal tunnel repair (03/02/15) History of cataract removal with insertion of prosthetic lens (02/16/15) History of cataract removal with insertion of prosthetic lens (03/09/15) History of tonsillectomy Status post appendectomy Status post colonoscopy (10/06/09) Status post lobectomy of lung (~04/2020) Status post repair of hydrocele (05/22/11) Family History Brother Lung cancer Father Lung cancer Mother Migraines Social History marital status: number of children: 2 household members: spouse Smoking Status: Current every day smoker Tobacco: How many years used: 69 quit status: considering quitting alcohol intake: current caffeine: Yes Smoking Status: Current every day smoker alcohol intake frequency: 3 or more drinks per day Substance Use Type: does not use Exam Narrative Exam Narrative: General: Pale but in no acute distress. Able to give a complete and coherent history. HEENT: Moist mucous membranes, normal sclera with reactive pupils, Neck: No JVD, supple Respiratory: Lungs with scattered wheezes in all lung [place] worse in the left mid and upper lung [place] without crackles or other consolidated findings. Full and symmetrical air movement Cardiac: Bradycardic but Regular rate and rhythm no murmurs no bruits Abdomen: Soft, nontender, good bowel tones, no flank pain, rectal exam shows soft brown stool that is immediately guaiac-positive Skin: Warm and dry, chronic bruising changes from thin skin and age notable over dorsum of the hands to above the elbows bilaterally Neurologic: Globally weak but otherwise Grossly neurologically intact with no obvious asymmetries or abnormalities Extremities: No specific trauma, well perfused, 1+ lower extremity edema bilaterally Psych: Cooperative, appropriate insight and affect Initial Vital Signs Initial Vital Signs: Vital Signs Temperature 95.7 F L 11/03/20 13:15 Pulse Rate 40 L 11/03/20 13:15 Respiratory Rate 16 11/03/20 13:15 Blood Pressure 99/48 L 11/03/20 13:15 Pulse Oximetry 95 11/03/20 13:15 Course Orders Ordered: ED Orders 11/03/20 13:18 CT chest wo con Routine 11/03/20 13:35 Complete Blood Count AUTO DIFF Stat Comprehensive Metabolic Panel Stat Lipase Stat Partial Thromboplastin Time Stat Prothrombin Time INR Stat Troponin & CK Cardiac Panel Stat 11/03/20 13:40 XR chest 1V Stat EKG-12 Lead Stat 11/03/20 14:45 COVID19 - ADMIT ([employer] swab/PCR) Stat 11/03/20 15:06 Packed Cells Stat Type and Screen Stat Acetaminophen (Acetaminophen 325 Mg Tablet) 650 mg PO Q6HR PRN PRN Reason: Fever/Mild Pain (1-3) Pantoprazole Sodium 80 mg/ (Sodium Chloride) 100 mls @ 10 mls/hr IV CONT RONNA Last Infusion: 11/03/20 15:10 Dose: 0 mg/hr, 0 mls/hr Documented by: Admin: 11/03/20 15:00 Dose: 8 mg/hr, 10 mls/hr Documented by: SRIKANTH Naloxone HCl (Naloxone 0.4 Mg/Ml Vial) 0.2 mg IV Q2MIN PRN PRN Reason: Opiate Reversal Discontinued Medications Furosemide (Furosemide 40 Mg/4 Ml Vial) 20 mg IV NOW ONE Stop: 11/03/20 14:15 Last Admin: 11/03/20 14:55 Dose: 20 mg Documented by: SRIKANTH Pantoprazole Sodium (Pantoprazole 40 Mg Vial) 40 mg IV NOW ONE Stop: 11/03/20 14:15 Last Admin: 11/03/20 14:55 Dose: 40 mg Documented by: SRIKANTH Vital Signs Vital signs: Vital Signs - 8 hr 11/03/20 13:15 11/03/20 13:24 11/03/20 13:25 Temperature 95.7 F L Pulse Rate 40 L 43 L Respiratory Rate 16 Blood Pressure 99/48 L 98/62 Pulse Oximetry 95 79 L 100 11/03/20 13:30 11/03/20 13:31 11/03/20 14:00 Temperature Pulse Rate 37 L 37 L 35 L Respiratory Rate 11 L 13 9 L Blood Pressure 143/64 H Pulse Oximetry 100 100 100 11/03/20 14:01 11/03/20 14:30 Temperature Pulse Rate 34 L 39 L Respiratory Rate 0 L 20 Blood Pressure 111/56 L Pulse Oximetry 100 100 Medical Decision Making Medical Records Medical records reviewed: Yes I reviewed the patient's medical records. Lab Data Lab results reviewed: Yes I reviewed the patient's lab results. Result diagrams: 11/03/20 13:35 11/03/20 13:35 Labs: Lab Results 11/03/20 11/03/20 11/03/20 Range/Units 13:35 13:35 13:35 WBC 5.8 (4.5-11.0) X10^3/uL RBC 1.93 L (4.5-5.9) X10^6/uL Hgb 7.0 L (13.5-17.5) g/dL Hct 21.3 L (41-53) % MCV 110.5 H (80-100) fL MCH 36.3 H (26-34) PG MCHC 32.9 (30-36) % RDW 17.0 H (11.6-14.8) % Plt Count 157 (150-400) X10^3/uL Neut % (Auto) 66.5 (50-75) % Lymph % (Auto) 20.9 L (25-40) % [place] % (Auto) 11.1 (3-14) % Eos % (Auto) 0.7 L (2-4) % Baso % (Auto) 0.8 (0-2) % Neut # (Auto) 3900 (8909-5809) /uL Lymph # (Auto) 1200 (1449-6588) /uL [place] # (Auto) 600 (0-900) /uL Eos # (Auto) 0 (0-450) /uL Baso # (Auto) 0 (0-100) /uL RBC Morphology Not Reportable Macrocytosis 2+ H PT 10.9 (10.1-12.7) SECONDS INR 1.0 (0.9-1.3) APTT 32 D (26.4-36.2) SECONDS Sodium 138 (137-145) mmol/L Potassium 4.8 (3.4-5.1) mmol/L Chloride 104 (98-107) mmol/L Carbon Dioxide 29 (22-32) mmol/L BUN 53 H (9-20) mg/dL Creatinine 1.92 H (0.66-1.25) mg/dL Estimated GFR 33.7 L (>60) mL/min BUN/Creatinine Ratio 27.6 H (6-22) Glucose 120 H (80-110) mg/dL Calcium 9.7 (8.4-10.2) mg/dL Total Bilirubin 0.3 (0.2-1.3) mg/dL AST 38 (17-59) IU/L ALT 27 (<50) IU/L Alkaline Phosphatase 111 (38-126) U/L Total Creatine Kinase 62 (55-170) U/L CK-MB (CK-2) TNP CK-MB (CK-2) Rel Index TNP Troponin I < 0.012 (0.01-0.034) ng/mL Total Protein 6.5 (6.3-8.2) g/dL Albumin 3.6 (3.5-5.0) g/dL Globulin 2.9 (1.7-4.1) g/dL Albumin/Globulin Ratio 1.2 (1.0-2.8) Lipase 74 (23-300) U/L Imaging Data Chest x-ray: Radiologist's Impression: FINDINGS: Surgical changes and devices: None. Remote partial pulmonary resection on the right. Lungs and pleura: Patchy bibasilar densities, possibly atelectasis versus scarring. No pleural effusions or pneumothorax. Mediastinum: Mediastinal contours appear normal. Heart size is normal. Bones and chest wall: No suspicious bony lesions. Overlying soft tissues appear unremarkable. IMPRESSION: Remote partial right pulmonary resection. Unchanged patchy bibasilar densities. Comment: It is noted that the patient is scheduled to undergo a CT of the chest without contrast later today. Dictated by: Abdulaziz Morales M.D. on 11/03/2020 at 13:53 CT scan - chest: Radiologist's Impression: This study was prescheduled to be done as part of his ongoing cancer surveillance prior to patient reporting to the emergency department INDICATIONS: right pulmonary nodules TECHNIQUE: Noncontrast 5 mm thick sections acquired from the pulmonary apices to the posterior costophrenic angles. 1 mm lung window, 5 mm thick coronal and sagittal and 7 mm axial MIP reformats were then acquired. For radiation dose reduction, the following was used: automated exposure control, adjustment of mA and/or kV according to patient size. COMPARISON: Outside Facility, RG, CT THORAX W/O CONTRAST, 09/28/2020, 3:48. [facility], CT, CT ANGIO CHEST PE PROTOCOL, 10/08/2020, 19:04. [facility], CR, XR CHEST 1V, 10/21/2020, 17:01. [facility], CR, XR CHEST 1V, 11/03/2020, 13:42. [facility], CT, CT CHEST WO CON, 09/08/2020, 14:32. [facility], CT, CT CHEST WO CON, 01/27/2020, 8:41. FINDINGS: Image quality: Excellent. Lungs and pleura: No acute air space opacities. There has been interval improvement in a reticulonodular pattern of airspace disease at the left lower 3rd lobe, with mild to moderate residual. Improvement in patchy right lower lobe alveolar infiltration also has occurred, with reference to the prior CT scanning from 10/08/20. There is no focus of airspace disease that would suggest interval development of malignancy. Partial right upper lobectomy changes are present, as has been previously the case, indicating likelihood of prior lung carcinoma. No pleural effusions or pneumothorax. Central and peripheral airways are patent and normal in caliber. Centrilobular emphysema is moderately severe. Mediastinum: Heart size is normal. No pericardial effusion. No mediastinal adenopathy by size criteria. Thoracic aorta and central pulmonary arteries are normal in size. Esophagus is normal in caliber. No hiatal hernia. Bones and chest wall: No suspicious bony lesions. No vertebral body compression fractures. No axillary or supraclavicular adenopathy by size criteria. Thyroid gland appears normal where well seen.. Abdomen: Visualized upper abdominal solid organs and bowel loops appear normal in the absence of contrast. IMPRESSION: COPD, moderately severe centrilobular emphysema. Improving reticulonodular pattern of airspace disease left lower lobe, and also improving patchy alveolar infiltration at the posterior right lung base. No pulmonary nodule is seen that would suggest presence of early manifestation of malignancy. COPD, centrilobular emphysema, partial right upper lobectomy, no recurrent mass lesion at the resection site or at the mediastinal and hilar soft tissues. Dictated by: Adelso Vallejo M.D. on 11/03/2020 at 15:07 ECG Data Attestation: I personally reviewed and interpreted this ECG as follows: Interpretation: Sinus rhythm at a rate of 34, sinus bradycardia Normal axis No acute ischemic changes MDM Narrative Medical decision making narrative: 84-year-old gentleman with lung cancer in COPD with home oxygen has been increasingly weak over the last days to weeks and comes in today with a hemoglobin that is dropped from 10.0 to 7.0 over the last 10-11 days. He has no specific complaints that would otherwise relate to GI bleeding. He is not anticoagulated. With his multiple medical comorbidities and increasing fatigue, weakness with subsequent falls and hemoglobin at 7 will plan on transfusing him 2 units to begin with. He will be on a Protonix pump. He is admitted to the hospitalist service and will contact General surgery to talk about upper endoscopy to see if we can localize the source of bleeding. All of this is reviewed with patient and his and both were agreeable. [id number] Dr. Schaefer is consulted and will plan on formal hospital consultation for this gentleman. Discharge Plan Departure Patient Disposition: Admitted As Inpatient Clinical Impression: Acute upper gastrointestinal bleeding, Acute anemia Admit Date/Time: 11/03/20 14:34 Admit Provider: Hood Travis
[2020-11-03 14:04] LABS: Troponin I < 0.012 ng/mL (0.01-0.034)
[2020-11-03 14:30] LABS: Macrocytosis 2+
[2020-11-03] MEDS: PANTOPRAZOLE 40 MG VIAL IV (14:55)
[2020-11-03] MEDS: FUROSEMIDE 40 MG/4 ML VIAL 20 MG IV (14:55)
[2020-11-03] MEDS: PANTOPRAZOLE 80 MG in SODIUM CHLORIDE 0.9% 100 ML 10 ML IV (15:00)
--- NOTE | 2020-11-03 17:24 | P.HP_ITS ---
History of Present Illness History of Present Illness Date Patient Seen: 11/03/20 Time Patient Seen: 15:24 Chief complaint: trouble breathing Narrative: Mr. 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 Of note he has had recent admissions to the hospital for respiratory failure from pneumonia, as well as bradycardia. This time he presents with weakness in his legs. He notes that he primarily feels that his legs do not have strength and that they feel as if they will collapse under him. Otherwise he denies any complaints. He has no abdominal pain, melena, hematochezia, or hematemesis. No dizziness, or lightheadedness. He has no shortness of breath, cough, or chest pain. No nausea, vomiting, or diarrhea. He was recently admitted to [facility] from 09/27/2020 through 10/02/2020 where he was evaluated for bradycardia and evaluation for pacemaker. Was felt that time the patient's bradycardia was secondary to comorbid conditions. He returned to [facility] and was admitted from 10/08-10/12 diagnosed with respiratory failure to incompletely treated pneumonia. In the ER he was noted to have normal vital signs except for a heart rate in the 30s-40s. His oxygen was 100% on 2L. Labs were notable for hemoglobin of 7.0, from 10.0 approximately 2 weeks ago. MCV 110.5. Creatinine was elevated from baseline at 1.92, with BUN of 53. Stools were guaiac positive and brown. He did have a chest CT which showed improvement in previously noted nodules. He was ordered for transfusion and admitted for further treatment. Patient History Medical History Adenocarcinoma of right lung, stage 1 (~05/10/20) Anemia Benign prostatic hyperplasia (01/29/12) Bradycardia Cellulitis Centrilobular emphysema (12/13/16) Cholesteatoma (09/10/12) Chronic kidney disease (CKD) stage G3a/A1, moderately decreased glomerular filtration rate (GFR) between 45-59 mL/min/1.73 square meter and albuminuria creatinine ratio less than 30 mg/g COPD (chronic obstructive pulmonary disease) DNR (do not resuscitate) Hemorrhagic cerebrovascular accident (CVA) (~2006) Hydronephrosis, left Hyperlipidemia Hypertension Lung cancer Macrocytic anemia (07/06/16) Mild alcohol abuse (03/26/15) Olecranon bursitis Peripheral vascular disease of foot (05/31/17) Sinusitis Stenosis of left femoral artery Stroke Substance abuse Syncope Syncope and collapse (09/10/12) Tobacco use disorder, continuous (09/10/12) Transient cerebral ischemia (04/23/12) Traumatic compression fracture of seventh thoracic vertebra, sequela (10/09/16) Tubular adenoma Urinary retention Surgical History History of carpal tunnel repair (03/02/15) History of cataract removal with insertion of prosthetic lens (02/16/15) History of cataract removal with insertion of prosthetic lens (03/09/15) History of tonsillectomy Status post appendectomy Status post colonoscopy (10/06/09) Status post lobectomy of lung (~04/2020) Status post repair of hydrocele (05/22/11) Family & Social History Family History Brother Lung cancer Father Lung cancer Mother Migraines Social History: household members spouse Safety & Behavioral: Feels Safe in Current Yes Environment Been Physically Hurt or No Threatened By a Person Suicidal Ideation Description None Suicide Plan Description No Plan Tobacco & Substance use: Tobacco type cigarettes Smoking Status Current every day smoker alcohol intake current alcohol intake frequency 3 or more drinks per day Substance Use Type does not use Meds Home Medications and Allergies Home Medications Medication Instructions Recorded Confirmed Type multivitamin [Tab-A-Iqra] 1 tab PO DAILY #30 tab 09/14/19 11/03/20 Rx thiamine HCl (vitamin B1) [Vitamin 100 mg PO DAILY #30 tab 09/14/19 11/03/20 Rx B-1] amlodipine 5 mg tablet 5 mg PO BID #180 tab 01/23/20 11/03/20 Rx fluticasone furoate 200 1 inhalation INHALATION DAILY #60 03/05/20 10/27/20 Rx mcg-vilanterol 25 mcg/dose each inhalation powder umeclidinium 62.5 mcg/actuation 62.5 mcg INHALATION QDAY #1 inh 03/05/20 11/03/20 Rx blister powder for inhalation mecobalamin (vitamin B12) 1,000 1,000 mcg PO DAILY 08/24/20 11/03/20 History mcg chewable tablet furosemide 20 mg PO DAILY #30 tab 10/21/20 11/03/20 Rx albuterol sulfate 90 mcg/actuation 2 puff INHALATION Q4H PRN #1 10/27/20 11/03/20 Rx aerosol inhaler inhalation fluticasone furoate-vilanterol 1 inh INHALATION DAILY 11/03/20 11/03/20 History [Breo Ellipta] lidocaine [Blue-Emu Lidocaine 1 patch TOPICAL DAILY PRN 11/03/20 11/03/20 History Patch] tamsulosin 0.4 mg PO BEDTIME 11/03/20 11/03/20 History Allergies Allergy/AdvReac Type Severity Reaction Status Date / Time No Known Drug Allergies Allergy Unknown Verified 11/03/20 13:15 Review of Systems Review of Systems Narrative: 14 systems reviewed and negative aside from what is noted in HPI. Exam Vital Signs (past 8 hours): - 11/03/20 13:15 11/03/20 13:24 11/03/20 13:25 Temperature 95.7 F L Pulse Rate 40 L 43 L Respiratory Rate 16 Blood Pressure 99/48 L 98/62 Pulse Oximetry 95 79 L 100 11/03/20 13:30 11/03/20 13:31 11/03/20 14:00 Temperature Pulse Rate 37 L 37 L 35 L Respiratory Rate 11 L 13 9 L Blood Pressure 143/64 H Pulse Oximetry 100 100 100 11/03/20 14:01 11/03/20 14:30 11/03/20 14:41 Temperature Pulse Rate 34 L 39 L 44 L Respiratory Rate 0 L 20 23 Blood Pressure 111/56 L 121/57 L Pulse Oximetry 100 100 100 11/03/20 15:15 11/03/20 16:50 11/03/20 17:09 Temperature 96.2 F L 95.6 F L 95.4 F L Pulse Rate 42 L 43 L 43 L Respiratory Rate 20 18 18 Blood Pressure 133/59 L 127/56 L 128/60 Pulse Oximetry 100 Oxygen Delivery Method Room Air Oxygen Flow Rate 2 Narrative Exam Narrative: GENERAL: no acute distress. HEENT: Normocephalic, PERRL, mucous membranes moist NECK/THYROID: neck supple, no JVD, trachea midline. SKIN: [place], warm and dry, ecchymosis superior aspect of bilateral shoulders and bilateral forearms HEART: Bradycardic rate and regular rhythm, no murmurs, rubs or gallops LUNGS: clear bilaterally. ABDOMEN: Soft, no distention, no abdominal tenderness, no guarding rebounding, no organomegaly, normal bowel sounds XTREMITIES: moves all extremities, strength is 5/5 and symmetrical NEUROLOGIC: AAOx3, cranial nerves II-XII grossly intact PSYCH: pleasant, cooperative Objective Labs Result Diagrams: 11/03/20 13:35 11/03/20 13:35 Labs: Laboratory Results - last 24 hr 11/03/20 11/03/20 11/03/20 13:35 13:35 13:35 WBC 5.8 RBC 1.93 L Hgb 7.0 L Hct 21.3 L MCV 110.5 H MCH 36.3 H MCHC 32.9 RDW 17.0 H Plt Count 157 Neut % (Auto) 66.5 Lymph % (Auto) 20.9 L [place] % (Auto) 11.1 Eos % (Auto) 0.7 L Baso % (Auto) 0.8 Neut # (Auto) 3900 Lymph # (Auto) 1200 [place] # (Auto) 600 Eos # (Auto) 0 Baso # (Auto) 0 RBC Morphology Not Reportable Macrocytosis 2+ H PT 10.9 INR 1.0 APTT 32 D Sodium 138 Potassium 4.8 Chloride 104 Carbon Dioxide 29 BUN 53 H Creatinine 1.92 H Estimated GFR 33.7 L BUN/Creatinine Ratio 27.6 H Glucose 120 H Calcium 9.7 Total Bilirubin 0.3 AST 38 ALT 27 Alkaline Phosphatase 111 Total Creatine Kinase 62 CK-MB (CK-2) TNP CK-MB (CK-2) Rel Index TNP Troponin I < 0.012 Total Protein 6.5 Albumin 3.6 Globulin 2.9 Albumin/Globulin Ratio 1.2 Lipase 74 Blood Type Antibody Screen Crossmatch 11/03/20 15:06 WBC RBC Hgb Hct MCV MCH MCHC RDW Plt Count Neut % (Auto) Lymph % (Auto) [place] % (Auto) Eos % (Auto) Baso % (Auto) Neut # (Auto) Lymph # (Auto) [place] # (Auto) Eos # (Auto) Baso # (Auto) RBC Morphology Macrocytosis PT INR APTT Sodium Potassium Chloride Carbon Dioxide BUN Creatinine Estimated GFR BUN/Creatinine Ratio Glucose Calcium Total Bilirubin AST ALT Alkaline Phosphatase Total Creatine Kinase CK-MB (CK-2) CK-MB (CK-2) Rel Index Troponin I Total Protein Albumin Globulin Albumin/Globulin Ratio Lipase Blood Type O Positive Antibody Screen Negative Crossmatch See Detail Assessment & Plan Assessment & Plan narrative: Mr. Chambers is an 84M with multiple medical problems including COPD, HTN, history of lung cancer who presents with generalized weakness found to have anemia and guaiac positive stools. 1. Anemia, macrocytic, acute -has hgb of 7.0, two weeks ago was 10.0 -has known history of b12 deficiency -no evidence of overt GI bleeding, but has guaiac positive stools -BUN and creatinine elevated, but given diuresis think it's due to overdiuresis and less likely from upper GI bleed -think more likely presentation consistent with lower GI bleed -for now has been started on PPI drip in ER and will continue -surgery consulted for possible scope -NPO after midnight -ordered for 2U PRBC -checking iron panel, folate, b12 levels 2. SYLVIE on CKD stage 3 -baseline creatinine of 1.5 -on admission 1.92 -suspect due to diuresis with lasix -for now hold lasix -will get PRBC transfusion for volume, and evaluate if improves hgb 3. COPD with chronic respiratory failure on 2L o2 -currently appears at baseline, not in exacerbation -continue home inhaled medications 4. History of lung cancer -had outpatient CT scan which demonstrated improved nodules and no evidence of cancer -follow up with oncology as outpatient 4. HTN -hold on antihypertensives for now given concern for GI bleed 5. Nicotine dependence -have continued to encourage patient to quit smoking 6. BPH -continue tamsulosin IVF: none DVT ppx; SCDs Diet: NPO at midnight Code status; DNR, Arely is proxy Quality VTE Deep Vein Thrombosis/Pulmonary Embolism Present on Admission: No
--- NOTE | 2020-11-03 17:47 | PM.CN ---
History of Present Illness Consult details Date Patient Seen: 11/03/20 Time Patient Seen: 18:00 Chief complaint: trouble breathing Reason for consult: Anemia, guaiac positive stool Requesting provider: Hood Travis Narrative: This is an 84yo man with PMH of lung CA s/p right upper lobe resection, h/o TIA and CVA, COPD with chronic respiratory failure on 2L home O2, macrocytic anemia, bradycardia (30-40's), chronic kidney disease stage 3, urinary retention and BPH who presented today to the ER with weakness and was admitted to the hospitalist service. He has had recent admissions to the hospital for respiratory failure from pneumonia, as well as bradycardia. He came in c/o weakness in his legs and a feeling that he would collapse. Per chart notes, he was recently admitted to [facility] from 09/27/2020 through 10/02/2020 where he was evaluated for bradycardia and considered for pacemaker. Reportedly the engine lathe operator felt that the patient's bradycardia was secondary to comorbid conditions and did not recommend pacing. He again returned to [facility] and was admitted from 10/08-10/12 with respiratory failure to incompletely treated pneumonia. In the ER today his heart rate was again in the 30s-40s. His hgb was found to be 7.0 and his stools were guiac positive. He does not recall any dark or bloody stools, and continues to deny abdominal pain or discomfort. He denies a history of PUD or colon polyps. He denies ever having an EGD. He does confirm he has had a colonoscopy before but is not sure when. ROS: He denies abdominal pain, melena, hematochezia, or hematemesis. No dizziness, or lightheadedness. He denies SOB, cough, or chest pain. Denies nausea, vomiting, or diarrhea. Thirteen system review is otherwise negative other than as mentioned below and in HPI. PE: GENERAL: Alert, comfortable appearing. Appears stated age. Answers questions promptly and appropriately. Vital signs noted. HENT: Normocephalic, atraumatic. Hearing intact. EYES: Conjunctiva pink, sclera white, no periorbital swelling. CARDIOVASCULAR: Regular rate. No pedal edema. RESPIRATORY: Non-tachypneic, breathing comfortably on NC O2. GASTROINTESTINAL: Abdomen soft and non-distended; nontender GENITALURINARY: No flank tenderness. MUSCULOSKELETAL: Equal tone and mass bilaterally. SKIN: Marked discoloration of bilateral upper extremities which appear like large ecchymoses. The patient says these are chronic skin changes. Otherwise warm, dry, soft, appropriate color for ethnicity. No other lesions, rashes, or wounds. NEURO: Alert and Oriented X 3. No gross sensory deficits, or cognitive issues. PSYCH: Appropriate affect and mood. Meds Home Medications and Allergies Home Medications Medication Instructions Recorded Confirmed Type multivitamin [Tab-A-Iqra] 1 tab PO DAILY #30 tab 09/14/19 11/03/20 Rx thiamine HCl (vitamin B1) [Vitamin 100 mg PO DAILY #30 tab 09/14/19 11/03/20 Rx B-1] amlodipine 5 mg tablet 5 mg PO BID #180 tab 01/23/20 11/03/20 Rx fluticasone furoate 200 1 inhalation INHALATION DAILY #60 03/05/20 11/03/20 Rx mcg-vilanterol 25 mcg/dose each inhalation powder umeclidinium 62.5 mcg/actuation 62.5 mcg INHALATION QDAY #1 inh 03/05/20 11/03/20 Rx blister powder for inhalation mecobalamin (vitamin B12) 1,000 1,000 mcg PO DAILY 08/24/20 11/03/20 History mcg chewable tablet furosemide 20 mg PO DAILY #30 tab 10/21/20 11/03/20 Rx albuterol sulfate 90 mcg/actuation 2 puff INHALATION Q4H PRN #1 10/27/20 11/03/20 Rx aerosol inhaler inhalation fluticasone furoate-vilanterol 1 inh INHALATION DAILY 11/03/20 11/03/20 History [Breo Ellipta] lidocaine [Blue-Emu Lidocaine 1 patch TOPICAL DAILY PRN 11/03/20 11/03/20 History Patch] tamsulosin 0.4 mg PO BEDTIME 11/03/20 11/03/20 History Allergies Allergy/AdvReac Type Severity Reaction Status Date / Time No Known Drug Allergies Allergy Unknown Verified 11/03/20 13:15 Exam Vital Signs (past 8 hours): - 11/03/20 13:15 11/03/20 13:24 11/03/20 13:25 Temperature 95.7 F L Pulse Rate 40 L 43 L Respiratory Rate 16 Blood Pressure 99/48 L 98/62 Pulse Oximetry 95 79 L 100 11/03/20 13:30 11/03/20 13:31 11/03/20 14:00 Temperature Pulse Rate 37 L 37 L 35 L Respiratory Rate 11 L 13 9 L Blood Pressure 143/64 H Pulse Oximetry 100 100 100 11/03/20 14:01 11/03/20 14:30 11/03/20 14:41 Temperature Pulse Rate 34 L 39 L 44 L Respiratory Rate 0 L 20 23 Blood Pressure 111/56 L 121/57 L Pulse Oximetry 100 100 100 11/03/20 15:15 11/03/20 16:50 11/03/20 17:09 Temperature 96.2 F L 95.6 F L 95.4 F L Pulse Rate 42 L 43 L 43 L Respiratory Rate 20 18 18 Blood Pressure 133/59 L 127/56 L 128/60 Pulse Oximetry 100 Oxygen Delivery Method Room Air Oxygen Flow Rate [address] scan - abdomen: Radiologist's impression: [address] [id number] Scan ReportSigned Patient: Pola Chambers DMR#: [id number]: 8Acct:[id number]/Sex: 84 / MDate of Service: 11/03/20Loc: [id number] Number: [id number] Procedure: CT chest wo con Ordering Provider: Elier Rush MD PROCEDURE: CT CHEST WO CON INDICATIONS: right pulmonary nodules TECHNIQUE: Noncontrast 5 mm thick sections acquired from the pulmonary apices to the posterior costophrenic angles. 1 mm lung window, 5 mm thick coronal and sagittal and 7 mm axial MIP reformats were then acquired. For radiation dose reduction, the following was used: automated exposure control, adjustment of mA and/or kV according to patient size. COMPARISON: Outside Facility, RG, CT THORAX W/O CONTRAST, 09/28/2020, 3:48. [facility], CT, CT ANGIO CHEST PE PROTOCOL, 10/08/2020, 19:04. [facility], CR, XR CHEST 1V, 10/21/2020, 17:01. [facility], CR, XR CHEST 1V, 11/03/2020, 13:42. [facility], CT, CT CHEST WO CON, 09/08/2020, 14:32. [facility], CT, CT CHEST WO CON, 01/27/2020, 8:41. FINDINGS: Image quality: Excellent. Lungs and pleura: No acute air space opacities. There has been interval improvement in a reticulonodular pattern of airspace disease at the left lower 3rd lobe, with mild to moderate residual. Improvement in patchy right lower lobe alveolar infiltration also has occurred, with reference to the prior CT scanning from 10/08/20. There is no focus of airspace disease that would suggest interval development of malignancy. Partial right upper lobectomy changes are present, as has been previously the case, indicating likelihood of prior lung carcinoma. No pleural effusions or pneumothorax. Central and peripheral airways are patent and normal in caliber. Centrilobular emphysema is moderately severe. Mediastinum: Heart size is normal. No pericardial effusion. No mediastinal adenopathy by size criteria. Thoracic aorta and central pulmonary arteries are normal in size. Esophagus is normal in caliber. No hiatal hernia. Bones and chest wall: No suspicious bony lesions. No vertebral body compression fractures. No axillary or supraclavicular adenopathy by size criteria. Thyroid gland appears normal where well seen.. Abdomen: Visualized upper abdominal solid organs and bowel loops appear normal in the absence of contrast. IMPRESSION: COPD, moderately severe centrilobular emphysema. Improving reticulonodular pattern of airspace disease left lower lobe, and also improving patchy alveolar infiltration at the posterior right lung base. No pulmonary nodule is seen that would suggest presence of early manifestation of malignancy. COPD, centrilobular emphysema, partial right upper lobectomy, no recurrent mass lesion at the resection site or at the mediastinal and hilar soft tissues. Dictated by: Adelso Vallejo M.D. on 11/03/2020 at 15:07 Approved by: Adelso Vallejo M.D. on 11/03/2020 at 15:12 Labs Result Diagrams: 11/03/20 13:35 11/03/20 13:35 Labs: Laboratory Results - last 24 hr 11/03/20 11/03/20 11/03/20 13:35 13:35 13:35 WBC 5.8 RBC 1.93 L Hgb 7.0 L Hct 21.3 L MCV 110.5 H MCH 36.3 H MCHC 32.9 RDW 17.0 H Plt Count 157 Neut % (Auto) 66.5 Lymph % (Auto) 20.9 L [place] % (Auto) 11.1 Eos % (Auto) 0.7 L Baso % (Auto) 0.8 Neut # (Auto) 3900 Lymph # (Auto) 1200 [place] # (Auto) 600 Eos # (Auto) 0 Baso # (Auto) 0 RBC Morphology Not Reportable Macrocytosis 2+ H PT 10.9 INR 1.0 APTT 32 D Sodium 138 Potassium 4.8 Chloride 104 Carbon Dioxide 29 BUN 53 H Creatinine 1.92 H Estimated GFR 33.7 L BUN/Creatinine Ratio 27.6 H Glucose 120 H Calcium 9.7 Total Bilirubin 0.3 AST 38 ALT 27 Alkaline Phosphatase 111 Total Creatine Kinase 62 CK-MB (CK-2) TNP CK-MB (CK-2) Rel Index TNP Troponin I < 0.012 Total Protein 6.5 Albumin 3.6 Globulin 2.9 Albumin/Globulin Ratio 1.2 Lipase 74 Blood Type Antibody Screen Crossmatch 11/03/20 15:06 WBC RBC Hgb Hct MCV MCH MCHC RDW Plt Count Neut % (Auto) Lymph % (Auto) [place] % (Auto) Eos % (Auto) Baso % (Auto) Neut # (Auto) Lymph # (Auto) [place] # (Auto) Eos # (Auto) Baso # (Auto) RBC Morphology Macrocytosis PT INR APTT Sodium Potassium Chloride Carbon Dioxide BUN Creatinine Estimated GFR BUN/Creatinine Ratio Glucose Calcium Total Bilirubin AST ALT Alkaline Phosphatase Total Creatine Kinase CK-MB (CK-2) CK-MB (CK-2) Rel Index Troponin I Total Protein Albumin Globulin Albumin/Globulin Ratio Lipase Blood Type O Positive Antibody Screen Negative Crossmatch See Detail Assessment & Plan Assessment and plan (1) Acute anemia: Status: Acute (2) Chronic kidney disease (CKD) stage G3a/A1, moderately decreased glomerular filtration rate (GFR) between 45-59 mL/min/1.73 square meter and albuminuria creatinine ratio less than 30 mg/g: Status: Acute (3) Bradycardia: Problem details: 11/2012 cardiology consult Status: Chronic (4) Hypoxia: Status: Acute (5) COPD (chronic obstructive pulmonary disease): Problem details: Severe OAD on PFT 04/24/20 Qualifiers: COPD type: unspecified COPD Qualified Code(s): J44.9 - Chronic obstructive pulmonary disease, unspecified Status: Chronic Assessment & Plan narrative: Medically complex 84 yo man in no acute distress at this time, with anemia (Hgb 10--> 7 over past two weeks) and guaiac positive stools. This patient presents as very fragile medically due to his pulmonary, renal, and cardiac comorbidities. Surgery was consulted for scopes to rule out upper and lower source of GI bleed. I would strongly recommend gentle transfusion, medical optimization, and anesthesiology consult before considering a scope. Although guaiac positive stools with no david blood or even melena reported would more likely indicate an upper source, if we do and EGD and find no upper source he will then need another anesthesia for a lower source, increasing his risk under multiple anesthetics. However, prepping to evaluate for a lower source may exacerbate his renal failure and compromise his fluid status significantly. These risks should be considered and discussed with the patient if EGD/colonoscopy is desired to rule out GI bleed. We will be available for scope if needed. Please contact the surgeon solar energy installation manager when the patient is medically optimized if scope is desired. COVID-19 COVID-19 status: Negative Result date/Date tested (Pos, Neg/Pending): 11/03/20 Time Spent With Patient Time with patient: 25 - 35 minutes
[2020-11-03 18:03] LABS: COVID19 - ADMIT (NP swab/PCR) Negative (Negative)
[2020-11-03 19:59] LABS: HEMOLYSIS < 15 (0-50); Iron 90 ug/dL (49-181)
[2020-11-03 20:10] LABS: Percent Iron Saturation 31 % (20-50); Total Iron Binding Capacity 287 ug/dL (261-462); Transferrin 244 mg/dL (206-381)
[2020-11-03 21:10] LABS: Folate > 20.0 ng/mL (2.76-20.0); Vitamin B12 > 1000 pg/mL (239-931)
[2020-11-04 00:10] LABS: Add Manual Diff / Slide Review NO; Basophils Absolute Auto 0 /uL (0-100); Basophils Percent Auto 0.9 % (0-2); Eosinophils Absolute Auto 100 /uL (0-450); Eosinophils Percent Auto 1.5 % (2-4); Hemoglobin 9.2 g/dL (13.5-17.5); Lymphocytes Absolute Auto 1300 /uL (1100-4500); Lymphocytes Percent Auto 34.3 % (25-40); Monocytes Absolute Auto 600 /uL (0-900); Monocytes Percent Auto 15.5 % (3-14); Neutrophils Absolute Auto 1800 /uL (1500-7000); Neutrophils Percent Auto 47.8 % (50-75); Platelet Count 145 X10^3/uL (150-400); Red Cell Distribution Width 23.7 % (11.6-14.8); White Blood Cell Count 3.7 X10^3/uL (4.5-11.0)
[2020-11-04 00:34] LABS: Anisocytosis 2+; Macrocytosis 1+
[2020-11-04 03:30] VITALS: BP 116/59; PULSE 68; RESP 18; TEMP 36.6; O2SAT 98
[2020-11-04 06:34] LABS: Blood Urea Nitrogen 44 mg/dL (9-20); Calcium 9.5 mg/dL (8.4-10.2); Carbon Dioxide 32 mmol/L (22-32); Chloride 105 mmol/L (98-107); Estimated Glomerular Filt Rate 37.3 mL/min (>60); Glucose 85 mg/dL (80-110); HEMOLYSIS < 15 (0-50); Hematocrit 26.5 % (41-53); Mean Corpuscular HGB Conc 33.9 % (30-36); Mean Corpuscular Volume 100.3 fL (80-100); Platelet Count 144 X10^3/uL (150-400); Potassium 4.5 mmol/L (3.4-5.1); Red Blood Cell Count 2.64 X10^6/uL (4.5-5.9); Red Cell Distribution Width 23.6 % (11.6-14.8); Sodium 140 mmol/L (137-145); White Blood Cell Count 4.6 X10^3/uL (4.5-11.0)
[2020-11-04 07:30] VITALS: BP 139/56; PULSE 54; RESP 20; TEMP 36.8; O2SAT 94
[2020-11-04] MEDS: PANTOPRAZOLE 80 MG in SODIUM CHLORIDE 0.9% 100 ML 10 ML IV (08:44)
--- NOTE | 2020-11-04 11:17 | PC.NURSE ---
Addendum entered by Irma Joseph R.N. 11/04/20 13:25: Patient discharged via wheelchair. Discharge instructions given to both spouse and patient regarding medications, follow-up appointment, fall risk, new prescription, and activity. Patient verbalized understanding. Refused transportation with O2. Has an appointment with oncology he is eager to get to. Tele d/c'd, IV removed, patient tolerated. Verbalized understanding to follow up with PCP. Original Note: Patient resting in bed this AM, O2 @ 2L, 95%, expiratory wheezing noted on auscultation. Intermittant cough noted, non-productive, wet. Patient denies feeling SOB. IV protonix infusing, patient tolerating. Tele on, pulses equal, heart murmur noted. 1+ edema noted bilaterally, patient reports this has decreased and is feeling much better compared to admitting date. Ambulating 1p with FWW. BT active x 4, reports last BM 11/02. Denies pain. Denies dizziness, lightheadedness, chest pain. Refusing SCD's they hurt that one foot. Call light in reach. Patient denies further needs at this time.
[2020-11-04 11:19] VITALS: BP 126/62; PULSE 54; RESP 21; TEMP 36.6; O2SAT 98
--- NOTE | 2020-11-04 11:32 | CM.DANOTE ---
Addendum entered by Viktoria Butler LPN 11/04/20 12:47: Admission status: in review: per UR RN. Note IMM signed yesterday 11/03 1450. Pt as noted is very agreeable to d/c today. Original Note: Discharge Planning/Care Management DCP: assessment: case received, EMR reviewed and met with pt during Team Rounds. Pt is an 84 year old male who admitted to care of hospitalist team yesterday afternoon. Consulting: Dr. Carol Romero. Payer: Medicare and [employer]. Dr. Travis explained to all during Rounds that pt was stable for d/c today and he would d/c in time to keep his appt at [facility] that is set for 1:10. Pt says he has called his Arely and she will be here about 1230 to take him to the appt. P: home today as above. Advanced directive, confirm from FAMILY Start: 11/03/20 15:37 Freq: Q24H Status: Active Protocol: Document 11/03/20 15:37 RL (Rec: 11/03/20 18:08 RL [id number]) Advance Directive, confirm on record Time 16:00 Person contacted Arely Copy received No CM Discharge Assessment Start: 11/04/20 11:24 Freq: Status: Active Protocol: Document 11/04/20 11:24 ITV (Rec: 11/04/20 11:32 ITV [id number]) Discharge Planning Assessment Advance Directives? No History Provided By Patient,Medical Record Has Patient been admitted in last 30 Yes days? Comment here in September 2020 with a d/c to home and HH/Signature on . Pt reports that the HH RN did go out but only for one visit. They said I was doing fine and did not need them. Prior Living Arrangements House Household Members spouse Independent with ADL's Yes: per his statement Is patient alert and oriented? Yes Community Services used prior to Oxygen Therapy admission: Comment on home o2 at baseline: vendor reportedly: [employer] Discharge Plan Home
--- NOTE | 2020-11-04 20:01 | P.DS_ITS ---
History of Present Illness History of Present Illness Chief complaint: trouble breathing Narrative: Mr. 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 Of note he has had recent admissions to the hospital for respiratory failure from pneumonia, as well as bradycardia. This time he presents with weakness in his legs. He notes that he primarily feels that his legs do not have strength and that they feel as if they will collapse under him. Otherwise he denies any complaints. He has no abdominal pain, melena, hematochezia, or hematemesis. No dizziness, or lightheadedness. He has no shortness of breath, cough, or chest pain. No nausea, vomiting, or diarrhea. He was recently admitted to [facility] from 09/27/2020 through 10/02/2020 where he was evaluated for bradycardia and evaluation for pacemaker. Was felt that time the patient's bradycardia was secondary to comorbid conditions. He returned to [facility] and was admitted from 10/08-10/12 diagnosed with respiratory failure to incompletely treated pneumonia. In the ER he was noted to have normal vital signs except for a heart rate in the 30s-40s. His oxygen was 100% on 2L. Labs were notable for hemoglobin of 7.0, from 10.0 approximately 2 weeks ago. MCV 110.5. Creatinine was elevated from baseline at 1.92, with BUN of 53. Stools were guaiac positive and brown. He did have a chest CT which showed improvement in previously noted nodules. He was ordered for transfusion and admitted for further treatment. Discharge Providers Provider Date of admission: 11/03/20 14:34 Discharge Date: 11/04/20 Primary care physician: Navya Rodriguez DO Discharge provider: Hood Travis MD Summary Hospital Course Discharge Diagnosis: 1. Anemia, macrocytic, acute 2. SYLVIE on CKD stage 3 3. COPD with chronic respiratory failure on 2L O2 4. History of lung cancer 5. HTN 6. Nicotine dependence 7. BPH 8. Peripheral vascular disease 9. Sinus bradycardia Hospital Course: Mr. Chambers presented with weakness and was found to have hemoglobin of 7.0. He had guaiac positive stools, but no melena, hematochezia, or hematemesis. Initially he was noted to have an SYLVIE with creatinine of 1.9 from baseline of approximately 1.5. He was given blood transfusion and had good improvement with hemoglobin to 9.0 with no david bleeding. Discussion was had with him about undergoing endoscopy or colonoscopy for his anemia. However did mention risks given his bradycardia and his chronic respiratory failure. He preferred to go home and monitor how he was feeling and then consider EGD or colonoscopy is his anemia worsens. Other etiology might be related to poor EPO production from his renal disease, and he can discuss with his providers about possible procrit. The other medical issues here in the hospital were stable. Code status: DNR Status at Discharge Cognitive/behavioral status at discharge: oriented Functional status at discharge: independent ambulation Overall status at discharge: patient is progressing back to baseline Time Spent with Patient Time spent: Less than 30 minutes Exam Vital Signs (past 8 hours): Oxygen Delivery Method Nasal Cannula Oxygen Flow Rate 0 Narrative Exam Narrative: GENERAL: no acute distress. HEENT: Normocephalic, PERRL, mucous membranes moist NECK/THYROID: neck supple, no JVD, trachea midline. SKIN: [place], warm and dry, ecchymosis superior aspect of bilateral shoulders and bilateral forearms HEART: Bradycardic rate and regular rhythm, no murmurs, rubs or gallops LUNGS: clear bilaterally. ABDOMEN: Soft, no distention, no abdominal tenderness, no guarding rebounding, no organomegaly, normal bowel sounds XTREMITIES: moves all extremities, strength is 5/5 and symmetrical NEUROLOGIC: AAOx3, cranial nerves II-XII grossly intact PSYCH: pleasant, cooperative Objective Labs Result Diagrams: 11/04/20 05:53 11/04/20 05:53 Labs: Laboratory Results - last 24 hr 11/03/20 11/03/20 11/03/20 13:35 13:35 15:06 WBC RBC Hgb Hct MCV MCH MCHC RDW Plt Count Neut % (Auto) Lymph % (Auto) Hayes % (Auto) Eos % (Auto) Baso % (Auto) Neut # (Auto) Lymph # (Auto) Hayes # (Auto) Eos # (Auto) Baso # (Auto) RBC Morphology Anisocytosis Macrocytosis Sodium Potassium Chloride Carbon Dioxide BUN Creatinine Estimated GFR BUN/Creatinine Ratio Glucose Calcium Iron 90 TIBC 287 % Saturation 31 Transferrin 244 Vitamin B12 > 1000 H Folate > 20.0 H Blood Type O Positive Antibody Screen Negative Crossmatch See Detail 11/03/20 11/04/20 11/04/20 23:49 05:53 05:53 WBC 3.7 L 4.6 RBC 2.70 L 2.64 L Hgb 9.2 L 9.0 L Hct 27.0 L 26.5 L MCV 100.0 D 100.3 H MCH 34.0 34.0 MCHC 34.0 33.9 RDW 23.7 H 23.6 H Plt Count 145 L 144 L Neut % (Auto) 47.8 L Lymph % (Auto) 34.3 Hayes % (Auto) 15.5 H Eos % (Auto) 1.5 L Baso % (Auto) 0.9 Neut # (Auto) 1800 Lymph # (Auto) 1300 Hayes # (Auto) 600 Eos # (Auto) 100 Baso # (Auto) 0 RBC Morphology See below Anisocytosis 2+ H Macrocytosis 1+ H Sodium 140 Potassium 4.5 Chloride 105 Carbon Dioxide 32 BUN 44 H Creatinine 1.76 H Estimated GFR 37.3 L BUN/Creatinine Ratio 25.0 H Glucose 85 Calcium 9.5 Iron TIBC % Saturation Transferrin Vitamin B12 Folate Blood Type Antibody Screen Crossmatch [facility] Medical History (Updated 11/04/20 @ 14:31 by Elier Rsuh MD) Adenocarcinoma of right lung, stage 1 (~05/10/20) Anemia Benign prostatic hyperplasia (01/29/12) Bradycardia Cellulitis Centrilobular emphysema (12/13/16) Cholesteatoma (09/10/12) Chronic kidney disease (CKD) stage G3a/A1, moderately decreased glomerular filtration rate (GFR) between 45-59 mL/min/1.73 square meter and albuminuria creatinine ratio less than 30 mg/g COPD (chronic obstructive pulmonary disease) DNR (do not resuscitate) Hemorrhagic cerebrovascular accident (CVA) (~2006) Hydronephrosis, left Hyperlipidemia Hypertension Lung cancer Macrocytic anemia (07/06/16) Mild alcohol abuse (03/26/15) Olecranon bursitis Peripheral vascular disease of foot (05/31/17) Sinusitis Stenosis of left femoral artery Stroke Substance abuse Syncope Syncope and collapse (09/10/12) Tobacco use disorder, continuous (09/10/12) Transient cerebral ischemia (04/23/12) Traumatic compression fracture of seventh thoracic vertebra, sequela (10/09/16) Tubular adenoma Urinary retention Surgical History History of carpal tunnel repair (03/02/15) History of cataract removal with insertion of prosthetic lens (02/16/15) History of cataract removal with insertion of prosthetic lens (03/09/15) History of tonsillectomy Status post appendectomy Status post colonoscopy (10/06/09) Status post lobectomy of lung (~04/2020) Status post repair of hydrocele (05/22/11) Family History Brother Lung cancer Father Lung cancer Mother Migraines Social History marital status: number of children: 2 household members: spouse Smoking Status: Current every day smoker Tobacco: How many years used: 69 quit status: considering quitting alcohol intake: current caffeine: Yes Discharge Plan Discharge Plan Patient Disposition: Home Provider Discharge Comment: Mr. Chambers came in with fatigue and weakness. He was found to have low blood count (anemia). He had microscopic small amount of blood in his stool. He had transfusion of blood which helped his blood counts. He also had mild worsening of his kidney function compared to previously, this is likely due to his lasix. It improved in the hospital after getting blood. He was probably slightly dehydrated. He should hold off on taking his lasix on 11/04, 11/05, and then take it every other day until seeing his PCP. If he gets more swelling he can start taking it daily again. He should follow up with his PCP within the next week. We did have discussion about possible EGD or colonoscopy here in the hospital. These have risks associate with anesthesia as he has COPD on oxygen, and bradycardia. After discussion of these risks Mr. Chambers was agreed with waiting to see if his blood counts stayed improved, and if they started dropping again, he could consider whether he wanted an EGD or colonoscopy. His b12 levels were very high, so he an stop this medication. He was given protonix to help reduced any possible high acid levels in his stomach that could cause slow oozing of blood. Discharge orders & Medications Prescriptions: New pantoprazole [Protonix] 40 mg tablet,delayed release (DR/EC) 40 mg PO DAILY Qty: 30 RF: 0 Continued fluticasone furoate-vilanterol 200-25 mcg/dose blister with device 1 inhalation INHALATION DAILY Qty: 60 RF: 6 Incruse Ellipta 62.5 mcg/actuation blister with device 62.5 mcg INHALATION QDAY Qty: 1 RF: 5 albuterol sulfate 90 mcg/actuation HFA aerosol inhaler 2 puff INHALATION Q4H PRN (Reason: shortness of breath or wheezing) Qty: 1 RF: 2 amlodipine [Norvasc] 5 mg tablet 5 mg PO BID Qty: 180 RF: 3 multivitamin [Tab-A-Iqra] Tablet 1 tab PO DAILY Qty: 30 RF: 0 thiamine HCl (vitamin B1) [Vitamin B-1] 100 mg Tablet 100 mg PO DAILY Qty: 30 RF: 0 furosemide 20 mg tablet 20 mg PO DAILY Qty: 30 RF: 0 tamsulosin 0.4 mg capsule 0.4 mg PO BEDTIME RF: 0 Breo Ellipta 200-25 mcg/dose Blister With Device 1 inh INHALATION DAILY RF: 0 lidocaine [Blue-Emu Lidocaine Patch] 4 % Adhesive Patch,Medicated 1 patch TOPICAL DAILY PRN (Reason: Pain (Scale Score 4-6)) RF: 0 Discontinued B12 Active 1,000 mcg tablet,chewable 1,000 mcg PO DAILY RF: 0 Follow up/Referrals: Navya Rodriguez DO [Primary Care Provider] - Diet/Activity/Treatments Diet: Low-sodium Discharge Data Primary Care Provider: Navya Rodriguez Attending Provider: Hood Travis VTE Deep Vein Thrombosis/Pulmonary Embolism Present on Admission: No MIPS - DC The patient has current or prior documentation of left ventricular ejection fraction (LVEF) less than 40%, or moderate or severely depressed left ventricular systolic function.: No
== END 2020-11-04 13:00 | disposition home or self-care (01) ==
LOC: ED 14:33 → AC 14:53
PROVIDERS: Emergency Medicine; Admitting Provider Internal Medicine; Emergency Provider Emergency Medicine; PCP Family Medicine; Referring Provider Emergency Medicine; Visit Provider Internal Medicine
DX: D53.9 Nutritional anemia, unspecified (principal); J96.10 Chronic respiratory failure, unspecified whether with hypoxia or hypercapnia; N17.9 Acute kidney failure, unspecified; I12.9 Hypertensive chronic kidney disease with stage 1 through stage 4 chronic kidney disease, or unspecified chronic kidney disease; N18.30 Chronic kidney disease, stage 3 unspecified; J44.9 Chronic obstructive pulmonary disease, unspecified; Z99.81 Dependence on supplemental oxygen; E78.5 Hyperlipidemia, unspecified; Z86.73 Personal history of transient ischemic attack (TIA), and cerebral infarction without residual deficits; Z85.118 Personal history of other malignant neoplasm of bronchus and lung; F17.210 Nicotine dependence, cigarettes, uncomplicated; Z20.822 Contact with and (suspected) exposure to COVID-19
CPT/HCPCS: 36415; 36430; 71045; 71250; 80048; 80053; 82550; 82607; 82746; 83540; 83550; 83690; 84484; 85025; 85027; 85610; 85730; 86850; 86900; 86901; 87635; 93005; 93010; 96365; 96366; 96375; 99214; 99225; 99283; 99284; C9803; G0378; P9016; C9113; J1940

== ENCOUNTER → 2020-12-01 12:33 | Outpatient (CLI) | payer MEDICARE, OTHER, SELFPAY ==
[2020-11-03 14:56] VITALS: BMI 23.6
== END ==
PROVIDERS: PCP Family Medicine; Visit Provider Family Medicine
DX: R31.9 Hematuria, unspecified (principal)
CPT/HCPCS: 87077; 87086; 87186

== ENCOUNTER → 2021-01-05 11:01 | Outpatient (CLI) | payer MEDICARE, OTHER, SELFPAY ==
[2020-11-03 14:56] VITALS: BMI 23.6
== END ==
PROVIDERS: PCP Family Medicine; Visit Provider Specialist
DX: N39.0 Urinary tract infection, site not specified (principal); N40.1 Benign prostatic hyperplasia with lower urinary tract symptoms; N13.8 Other obstructive and reflux uropathy
CPT/HCPCS: 51798; 81002; 87086; 99213

== ENCOUNTER → 2021-01-18 08:58 | Outpatient (CLI) | payer MEDICARE, OTHER, SELFPAY ==
[2020-11-03 14:56] VITALS: BMI 23.6
[2021-01-18 09:50] LABS: COVID19 -Nasal RAPID Negative (Negative)
== END ==
PROVIDERS: PCP Family Medicine; Visit Provider Physician Assistant
DX: Z20.822 Contact with and (suspected) exposure to COVID-19 (principal); Z20.828 Contact with and (suspected) exposure to other viral communicable diseases
CPT/HCPCS: 87635

== ENCOUNTER → 2021-01-20 13:30 | Outpatient (CLI) | payer MEDICARE, OTHER, SELFPAY ==
[2020-11-03 14:56] VITALS: BMI 23.6
--- NOTE | 2021-01-20 | DI.US.S_ITS ---
PROCEDURE: US CAROTID DOPPLER BI INDICATIONS: LEFT BRUIT TECHNIQUE: Color and pulse Doppler interrogation was performed of both carotid systems, with image documentation and velocity measurements. COMPARISON: None. FINDINGS: Stenosis calculations are based on SRU (Society of Radiologists in Ultrasound) criteria. Right side: Brachial blood pressure: 151/78 mm Hg. Common carotid artery peak systolic velocity: 62 Internal carotid artery peak systolic velocity: 136 Internal carotid artery end diastolic velocity: 27 External carotid artery peak systolic velocity: 52 ICA/CCA peak systolic ratio: 2.2 Fernandez scale imaging description: Moderate calcific and Percent internal carotid artery stenosis: 50-69% stenosis within the proximal right internal carotid artery. Vertebral arterial flow is antegrade in direction. Vertebral artery: Flow direction is antegrade. Left side: Brachial blood pressure: 148/69 mm Hg. Common carotid artery peak systolic velocity: 58 cm/sec. Internal carotid artery peak systolic velocity: 72 cm/sec. Internal carotid artery end diastolic velocity: 18 cm/sec. External carotid artery peak systolic velocity: 67 cm/sec. ICA/CCA peak systolic ratio: 1.3 . Fernandez scale imaging description: Mild to moderate calcific and soft plaque Percent internal carotid artery stenosis: Less than 50% stenosis at the proximal left internal artery. . Vertebral artery: Flow direction is antegrade. IMPRESSION: 50-69% stenosis within the proximal right internal carotid artery but the degree of atherosclerotic disease is less on the left, with less than 50% stenosis at the proximal left internal carotid artery. Vertebral arterial flow is antegrade in direction bilaterally. Dictated by: Adelso Vallejo M.D. on 01/20/2021 at 16:23 Approved by: Adelso Vallejo M.D. on 01/20/2021 at 16:26
--- NOTE | 2021-01-20 | DI.ECHO.S_ITS ---
[facility]---------+ [facility] +---------+ : : [address] : : : : [id number] : : : : Phone: [phone] Echocardiogram Report + + :Name: VINCE MOSLEY Study Date: 01/20/2021 Height: 69 in : :[facility] ReadingLocation: Weight: 175 lb : : Gender: Male BSA: 2.0 m2 : :: 1935 Age: 85 yrs BP: 129/71 mmHg: :Reason For Study: Dyspnea : :Ordering Physician: Gaurav : :Romel Viramontes Performed By: Kvng Yu : :Referring: GAURAV VIRAMONTES : + + Interpretation Summary 1) Normal left ventricular size, thickness, wall motion, and systolic function (EF 55-60%). 2) Normal right ventricular size and function. 3) There is mild aortic stenosis (valve area 1.6cm2, mean gradient 17mmHg, severity ratio 0..4). 4) Compared to the Echo done 09/11/2019, no significant change. Procedure: A two-dimensional transthoracic echocardiogram with color flow and Doppler was performed. The study quality was technically adequate. Comparison is made with the echocardiogram of 09/11/2019. The patient was in sinus bradycardia with heart rates between 44-53 bpm during the exam. Left Ventricle: The left ventricle is normal in size and wall thickness. Left ventricular systolic function is normal. The ejection fraction is estimated to be 55-60%. There are no focal wall motion abnormalities. Diastolic parameters suggest a pseudonormalization pattern, consistent with probable elevated filling pressures. Right Ventricle: The right ventricle is normal in size and function. Atria: The left atrium is not well visualized. Right atrial size is normal. There is no Doppler evidence for an interatrial shunt. Mitral Valve: There is mild mitral annular calcification. There is trace mitral regurgitation. Aortic Valve: The aortic valve is moderately calcified. There is moderately reduced leaflet mobility. There is mild aortic stenosis. The aortic valve mean gradient is 17 mmHg. No aortic regurgitation is present. Tricuspid Valve: The tricuspid valve is normal in structure and function. There is trace tricuspid regurgitation. Pulmonary artery pressures cannot be estimated because of the lack of a measurable TR jet velocity but the IVC suggests a CVP of around 3 mmHg. Pulmonic Valve: The pulmonic valve is not well seen, but is grossly normal. There is mild pulmonic regurgitation. Great Vessels: The aortic root is normal size. The dimensions of the ascending aorta are normal. The IVC is of normal diameter and collapses greater than 50% with a sniff. This suggests a low right atrial pressure of 3 mm Hg. Pericardium/ Pleura There is no pericardial effusion. There is no pleural effusion. MMode/2D Measurements & Calculations LVIDd: 5.5 cm LVOT diam: 2.2 cm LVIDs: 3.9 cm Ao root diam: 3.7 cm FS: 29.8 % asc Aorta Diam: 3.6 cm IVSd: 0.98 cm LVPWd: 0.91 cm LV [place]. diameter/BSA (cm/m^2): 2.8 LV sys. diameter/BSA (cm/m^2): 2.0 LA A4 area: 18.3 cm2 RA long axis: 4.7 cm LA length (vol): 4.8 cm RA area: 15.4 cm2 RA vol: 43.2 ml RA : 22.1 ml/m2 Doppler Measurements & Calculations Ao V2 max: 280.1 cm/sec LVOT Max Rufus: 116.9 cm/sec Ao V2 mean: 196.5 cm/sec LV V1 max P.5 mmHg Ao max P.4 mmHg LV V1 VTI: 30.7 cm Ao mean P.1 mmHg PARRISH(I,D): 1.5 cm2 Ao V2 VTI: 76.6 cm PARRISH(V,D): 1.6 cm2 sev ratio: 0.40 PARRISH indexed to BSA (cm^2/m^2): 0.78 MV E max rufus: 104.5 cm/sec TR max rufus: 307.9 cm/sec MV A max rufus: 118.9 cm/sec TR max P.9 mmHg MV E/A: 0.88 PA V2 max: 94.0 cm/sec Med Peak E' Rufus: 6.5 cm/sec PA V2 mean: 66.9 cm/sec E/E' med: 16.0 PA mean P.9 mmHg Lat Peak E' Rufus: 8.3 cm/sec PA pr(Accel): 43.7 mmHg E/E' lat: 12.6 E/e' average: 14.3 MV dec time: 0.29 sec SV(LVOT): 116.1 ml Reading Physician:09:23 PM
--- NOTE | 2021-01-20 18:53 | DI.NM.S_ITS ---
DATE OF SERVICE: 01/20/2021 PROCEDURE: Exercise treadmill stress test without imaging. ORDERING PROVIDER: Dr. Amari Viramontes. INDICATIONS: The patient is an 85-year-old male with exertional dyspnea and bradycardia. FINDINGS: 1. The patient was able to exercise for 2 minutes, 51 seconds on a standard Damián protocol suggesting moderate-severely reduced exercise capacity with an NAVID of +30 percent, achieving 4.6 METs. 2. He had a markedly blunted chronotropic response to exercise with a resting heart rate of 48 BPM that increased to a maximum of 75 BPM at peak exercise (55% of his predicted maximum). He had a normal blood pressure response with a resting blood pressure of 140/70, increasing to 160/80. 3. He had no chest discomfort but had limiting dyspnea with a oxygen saturation in early recovery of 85%. 4. His resting ECG shows sinus bradycardia at [address] BPM with relatively normal ST segments. There are no obvious ST-segment shifts with exercise but there is considerable motion artifact. He had occasional PACs, rarely in couplets, and rare PVCs, but no sustained arrhythmias. IMPRESSION: 1. Nondiagnostic stress test for myocardial ischemia because of a markedly blunted chronotropic response to exercise, achieving only a maximum heart rate of 75 BPM (55% of his predicted maximum). Yet, there is no ECG evidence for myocardial ischemia. 2. Markedly reduced exercise capacity with exertional dyspnea with documented exertional hypoxia but no chest discomfort. Reyes Pola - LISET/nimco/lc doc#: [id number]/job#: [id number] dd: 01/20/2021 17:05:00 dt: 01/20/2021 18:24:00 DICTATING MD/COPIES TO: Jeet Shields MD; Milton Viramontes MD COPIES MNE: TERE;
== END ==
PROVIDERS: PCP Family Medicine; Referring Provider Internal Medicine Cardiovascular Disease; Visit Provider Internal Medicine Cardiovascular Disease
DX: I35.0 Nonrheumatic aortic (valve) stenosis (principal); I37.1 Nonrheumatic pulmonary valve insufficiency; I65.23 Occlusion and stenosis of bilateral carotid arteries; R06.00 Dyspnea, unspecified; R00.1 Bradycardia, unspecified; R09.89 Other specified symptoms and signs involving the circulatory and respiratory systems
CPT/HCPCS: 93017; 93306; 93880

== ENCOUNTER → 2021-02-21 13:19 | Outpatient (CLI) | payer MEDICARE, OTHER, SELFPAY ==
[2020-11-03 14:56] VITALS: BMI 23.6
[2021-02-21 14:13] LABS: Add Manual Diff / Slide Review NO; Basophils Absolute Auto 100 /uL (0-100); Basophils Percent Auto 1.3 % (0-2); Eosinophils Absolute Auto 200 /uL (0-450); Eosinophils Percent Auto 4.3 % (2-4); Hematocrit 31.4 % (41-53); Hemoglobin 10.4 g/dL (13.5-17.5); Lymphocytes Absolute Auto 1500 /uL (1100-4500); Lymphocytes Percent Auto 34.8 % (25-40); Mean Corpuscular HGB Conc 33.3 % (30-36); Mean Corpuscular Volume 108.3 fL (80-100); Monocytes Absolute Auto 800 /uL (0-900); Monocytes Percent Auto 17.1 % (3-14); Neutrophils Absolute Auto 1900 /uL (1500-7000); Neutrophils Percent Auto 42.5 % (50-75); Platelet Count 260 X10^3/uL (150-400); Red Cell Distribution Width 16.9 % (11.6-14.8); White Blood Cell Count 4.4 X10^3/uL (4.5-11.0)
[2021-02-21 14:28] LABS: Alanine Aminotransferase 15 IU/L (<50); Albumin 4.1 g/dL (3.5-5.0); Albumin Globulin Ratio 1.1 (1.0-2.8); Alkaline Phosphatase 96 U/L (38-126); Aspartate Aminotransferase 29 IU/L (17-59); BUN Creatinine Ratio 24.3 (6-22); Bilirubin Total 0.5 mg/dL (0.2-1.3); Blood Urea Nitrogen 33 mg/dL (9-20); Calcium 9.5 mg/dL (8.4-10.2); Carbon Dioxide 28 mmol/L (22-32); Chloride 104 mmol/L (98-107); Globulin 3.6 g/dL (1.7-4.1); Glucose 160 mg/dL (80-110); HEMOLYSIS < 15 (0-50); Potassium 4.7 mmol/L (3.4-5.1); Sodium 138 mmol/L (137-145); Total Protein 7.7 g/dL (6.3-8.2)
== END ==
PROVIDERS: Internal Medicine Hematology & Oncology; PCP Family Medicine; Referring Provider Family Medicine; Visit Provider Family Medicine
DX: C34.11 Malignant neoplasm of upper lobe, right bronchus or lung (principal)
CPT/HCPCS: 36415; 80053; 85025

== ENCOUNTER → 2021-02-28 06:40 | Outpatient (CLI) | payer MEDICARE, OTHER, SELFPAY ==
[2020-11-03 14:56] VITALS: BMI 23.6
--- NOTE | 2021-02-28 07:06 | DI.CT.S_ITS ---
PROCEDURE: CT CHEST WO CON INDICATIONS: lung cancer TECHNIQUE: Noncontrast 5 mm thick sections acquired from the pulmonary apices to the posterior costophrenic angles. 1 mm lung window, 5 mm thick coronal and sagittal and 7 mm axial MIP reformats were then acquired. For radiation dose reduction, the following was used: automated exposure control, adjustment of mA and/or kV according to patient size. COMPARISON: [facility], CT, CT CHEST WO CON, 11/03/2020, 14:30. [facility], CT, CT CHEST WO CON, 09/08/2020, 14:32. FINDINGS: Image quality: Excellent. Lungs and pleura: No acute air space opacities and there has been resolution of the posterior left lower lobe pneumonia pattern, with mild lung parenchymal scarring in that area with reference to the study from October of this year. No right lung base pneumonia is seen. Postsurgical changes again noted stable over time at the posterior right upper lobe/lung apex area. Centrilobular emphysema is moderately severe and stable over time. No pleural effusions or pneumothorax. Central and peripheral airways are patent and normal in caliber. Mediastinum: Heart size is normal. No pericardial effusion. No mediastinal adenopathy by size criteria. Thoracic aorta and central pulmonary arteries are normal in size. Esophagus is normal in caliber. No hiatal hernia. Bones and chest wall: No suspicious bony lesions. No vertebral body compression fractures. No axillary or supraclavicular adenopathy by size criteria. Thyroid gland is not well seen . Abdomen: Visualized upper abdominal solid organs and bowel loops appear normal in the absence of contrast. IMPRESSION: Resolution of left lower lobe pneumonia, residual lung scarring in that area. Stable appearance of postsurgical change after partial right upper lobe lung resection. Moderate centrilobular emphysema, no new lung mass has developed. Dictated by: Adelso Vallejo M.D. on 02/28/2021 at 11:41 Approved by: Adelso Vallejo M.D. on 02/28/2021 at 12:03
== END ==
PROVIDERS: PCP Family Medicine; Referring Provider Internal Medicine Hematology & Oncology; Visit Provider Internal Medicine Hematology & Oncology
DX: C34.11 Malignant neoplasm of upper lobe, right bronchus or lung (principal); J43.2 Centrilobular emphysema; Z87.01 Personal history of pneumonia (recurrent)
CPT/HCPCS: 71250

== ENCOUNTER → 2021-06-30 08:49 | Outpatient (CLI) | payer MEDICARE, OTHER, SELFPAY ==
[2020-11-03 14:56] VITALS: BMI 23.6
[2021-06-30 09:04] LABS: Hemoglobin 9.7 g/dL (13.5-17.5)
== END ==
PROVIDERS: PCP Family Medicine; Referring Provider Family Medicine; Visit Provider Family Medicine
DX: D64.9 Anemia, unspecified (principal)
CPT/HCPCS: 36415; 85018

== ENCOUNTER → 2021-07-19 09:38 | Outpatient (CLI) | payer MEDICARE, OTHER, SELFPAY ==
[2020-11-03 14:56] VITALS: BMI 23.6
[2021-07-19 11:13] LABS: BUN Creatinine Ratio 21.8 (6-22); Blood Urea Nitrogen 43 mg/dL (9-20); Calcium 9.7 mg/dL (8.4-10.2); Carbon Dioxide 28 mmol/L (22-32); Chloride 109 mmol/L (98-107); Estimated Glomerular Filt Rate 32.6 mL/min (>60); Glucose 87 mg/dL (80-110); HEMOLYSIS < 15 (0-50); Sodium 144 mmol/L (137-145)
[2021-07-19 11:15] LABS: Potassium 5.4 mmol/L (3.4-5.1)
[2021-07-20 13:47] LABS: Add Manual Diff / Slide Review NO; Basophils Absolute Auto 0 /uL (0-100); Basophils Percent Auto 0.8 % (0-2); Eosinophils Absolute Auto 100 /uL (0-450); Eosinophils Percent Auto 1.5 % (2-4); Hematocrit 29.4 % (41-53); Hemoglobin 9.9 g/dL (13.5-17.5); Lymphocytes Absolute Auto 2000 /uL (1100-4500); Lymphocytes Percent Auto 36.3 % (25-40); Mean Corpuscular HGB Conc 33.6 % (30-36); Mean Corpuscular Hemoglobin 37.3 PG (26-34); Mean Corpuscular Volume 110.9 fL (80-100); Monocytes Absolute Auto 1100 /uL (0-900); Monocytes Percent Auto 20.3 % (3-14); Neutrophils Absolute Auto 2200 /uL (1500-7000); Neutrophils Percent Auto 41.1 % (50-75); Platelet Count 177 X10^3/uL (150-400); Red Blood Cell Count 2.65 X10^6/uL (4.5-5.9); Red Cell Distribution Width 17.9 % (11.6-14.8); White Blood Cell Count 5.4 X10^3/uL (4.5-11.0)
[2021-07-20 14:13] LABS: Anisocytosis 3+; Macrocytosis 1+
== END ==
PROVIDERS: PCP Family Medicine; Referring Provider Internal Medicine Cardiovascular Disease; Visit Provider Internal Medicine Cardiovascular Disease
DX: D64.9 Anemia, unspecified (principal)
CPT/HCPCS: 36415; 80048; 85025

== ENCOUNTER → 2021-07-26 10:55 | Outpatient (CLI) | payer MEDICARE, OTHER, SELFPAY ==
[2020-11-03 14:56] VITALS: BMI 23.6
[2021-07-26 11:50] LABS: Add Manual Diff / Slide Review NO; Basophils Absolute Auto 100 /uL (0-100); Basophils Percent Auto 1.3 % (0-2); Eosinophils Absolute Auto 100 /uL (0-450); Eosinophils Percent Auto 2.1 % (2-4); Hematocrit 29.9 % (41-53); Lymphocytes Absolute Auto 1600 /uL (1100-4500); Mean Corpuscular HGB Conc 33.4 % (30-36); Mean Corpuscular Hemoglobin 36.5 PG (26-34); Mean Corpuscular Volume 109.3 fL (80-100); Monocytes Absolute Auto 800 /uL (0-900); Monocytes Percent Auto 16.7 % (3-14); Neutrophils Absolute Auto 2000 /uL (1500-7000); Neutrophils Percent Auto 43.9 % (50-75); Platelet Count 279 X10^3/uL (150-400); Red Blood Cell Count 2.73 X10^6/uL (4.5-5.9); Red Cell Distribution Width 17.5 % (11.6-14.8); White Blood Cell Count 4.5 X10^3/uL (4.5-11.0)
[2021-07-26 12:02] LABS: Appearance Urine UA SL CLOUDY; Bilirubin Urine UA NEGATIVE (NEGATIVE); Color Urine UA YELLOW; Glucose Urine UA NEGATIVE (Negative); Ketones Urine UA NEGATIVE (NEGATIVE); Leukocyte Esterase Urine UA 2+ (NEGATIVE); Nitrite Urine UA NEGATIVE (Negative); Occult Blood Urine UA 1+ (Negative); Protein Urine UA 2+ (Negative); Specific Gravity Urine UA 1.015 (1.000-1.035); Urobilinogen Urine UA 0.2 E.U./dL (0.2)
[2021-07-26 12:03] LABS: HEMOLYSIS < 15 (0-50); Iron 71 ug/dL (49-181)
[2021-07-26 12:05] LABS: Albumin 4.6 g/dL (3.5-5.0); BUN Creatinine Ratio 21.8 (6-22); Blood Urea Nitrogen 34 mg/dL (9-20); Calcium 9.9 mg/dL (8.4-10.2); Carbon Dioxide 32 mmol/L (22-32); Chloride 104 mmol/L (98-107); Estimated Glomerular Filt Rate 42.7 mL/min (>60); Glucose 85 mg/dL (80-110); HEMOLYSIS < 15 (0-50); Phosphorous 3.3 mg/dL (2.3-3.7); Potassium 5.1 mmol/L (3.4-5.1); Sodium 137 mmol/L (137-145)
[2021-07-26 12:14] LABS: Percent Iron Saturation 23 % (20-50); Total Iron Binding Capacity 308 ug/dL (261-462); Transferrin 238 mg/dL (206-381)
[2021-07-26 12:15] LABS: Creatinine Urine Random 61.9 mg/dL
[2021-07-26 12:29] LABS: RBC Urine 1-5/HPF (0-5/HPF); Squamous Epithelial Cell Urine None Seen (0-5/HPF); WBC Urine >100/HPF (0-5/HPF)
[2021-07-26 12:30] LABS: Bacteria Urine Many (>30); Culture Indicated Urine Specimen Cultured
[2021-07-26 12:40] LABS: Ferritin 129 ng/mL (18-464)
[2021-07-26 13:26] LABS: Microalbumi Creatinin Ratio Ur 1032.3 ug/mg CR (<30); Microalbumin Urine Random 63.9 mg/dL (0-1.6)
[2021-07-27 09:16] LABS: Parathyroid Hormone Int 69 pg/mL (15-65)
== END ==
PROVIDERS: PCP Family Medicine; Referring Provider Internal Medicine Nephrology; Visit Provider Internal Medicine Nephrology
DX: D64.9 Anemia, unspecified (principal); N18.32 Chronic kidney disease, stage 3b
CPT/HCPCS: 36415; 80069; 81001; 82043; 82570; 82728; 83540; 83550; 83970; 85025; 87077; 87086; 87186

== ENCOUNTER → 2021-08-25 10:46 | Outpatient (CLI) | payer MEDICARE, OTHER, SELFPAY ==
[2020-11-03 14:56] VITALS: BMI 23.6
--- NOTE | 2021-08-25 10:48 | DI.CT.S_ITS ---
PROCEDURE: CT CHEST WO CON INDICATIONS: lung cancer TECHNIQUE: Noncontrast 5 mm thick sections acquired from the pulmonary apices to the posterior costophrenic angles. 1 mm lung window, 5 mm thick coronal and sagittal and 7 mm axial MIP reformats were then acquired. For radiation dose reduction, the following was used: automated exposure control, adjustment of mA and/or kV according to patient size. COMPARISON: [facility], CT, CT CHEST WO CON, 02/28/2021, 6:43. [facility], CT, CT CHEST WO CON, 11/03/2020, 14:30. FINDINGS: Image quality: Excellent. Lungs and pleura: Severe centrilobular and paraseptal emphysema is seen bilaterally. Chronic postsurgical changes are seen at the right lung apex with stable surrounding postsurgical scarring. A new nodular opacity is seen at the left lung base measuring 15 x 13 mm (242/3). There is mild surrounding reticulations. Mild reticular opacity is also seen at the anterior portion of the left lung base (258/3). Mild reticular opacity is also noted in the anterior portion of the right lung base (224/3), which is new. No acute air space opacities. No pleural effusions or pneumothorax. Central and peripheral airways are patent and normal in caliber. Mediastinum: A precarinal lymph node measures 1.2 cm in short axis diameter (24/2), unchanged when compared to the prior CT from 02/28/2021. Additional mildly prominent mediastinal lymph nodes do not appear significantly changed in size. Heart size is normal. No pericardial effusion. Moderate to severe coronary artery calcifications. Thoracic aorta and central pulmonary arteries are normal in size. Moderate aortic atherosclerotic calcifications. Esophagus is normal in caliber. No hiatal hernia. Bones and chest wall: No suspicious bony lesions. No vertebral body compression fractures. Mild chronic deformity of the sternum is consistent with a healed fracture. Mild wedging deformity of the midthoracic vertebrae do not appear significantly changed. No axillary or supraclavicular adenopathy by size criteria. Thyroid is unremarkable. Abdomen: Exophytic left renal cyst is partially imaged. Visualized upper abdominal solid organs and bowel loops otherwise appear normal in the absence of contrast. IMPRESSION: 1. New 15 mm nodule at the left lung base. Additional new mild reticulonodular opacities in the anterior lower lobes bilaterally suggests that this nodule could be due to acute infectious or inflammatory process or aspiration, although a new pulmonary neoplasm is not excluded. Recommend correlation with clinical signs and symptoms, and short-term follow-up CT in approximately 3 months. 2. Stable postsurgical changes from partial right upper lobe resection. 3. Mildly prominent nonspecific mediastinal lymph nodes do not appear significantly changed when compared to the most recent prior CTs. 4. Severe centrilobular emphysema. Dictated by: Jace Abraham M.D. on 08/25/2021 at 12:43 Approved by: Jace Abraham M.D. on 08/25/2021 at 12:55
== END ==
PROVIDERS: PCP Family Medicine; Referring Provider Internal Medicine Hematology & Oncology; Visit Provider Internal Medicine Hematology & Oncology
DX: C34.91 Malignant neoplasm of unspecified part of right bronchus or lung (principal); N18.31 Chronic kidney disease, stage 3a; J43.2 Centrilobular emphysema; R91.1 Solitary pulmonary nodule; R59.0 Localized enlarged lymph nodes
CPT/HCPCS: 71250

== ENCOUNTER 2021-09-07 16:31 | Emergency (ER) | payer MEDICARE, OTHER, SELFPAY ==
[2020-11-03 14:56] VITALS: BMI 23.6
[2021-09-07] VITALS (30 sets, daily range): BP systolic 142–170; BP diastolic 64–79; PULSE 34–52; RESP 11–34; TEMP 36.6; O2SAT 91–99; BMI 24.3
--- NOTE | 2021-09-07 16:59 | ED.GENADULT ---
HPI - General Adult General Chief complaint: Chest Pain Stated complaint: SOB/CHEST PAIN Time Seen by Provider: 09/07/21 16:36 Source: patient Mode of arrival: Ambulatory Limitations: no limitations History of Present Illness HPI narrative: Patient is an 85-year-old male. Has chronic medical problems to include anemia, COPD, history of GI bleed, chronic kidney disease, hypertension and peripheral vascular disease. He was at his GI doctor's appointment yesterday and while he was there he stated that he was told that his heart rate was low. He does report that he has been short of breath with exertion very fatigued recently. He has also had a history of anemia. He got a call from his GI provider today recommending that he come to the emergency department given his symptoms. He is having some mild chest discomfort as well. No change in his bowel habits. He does have neuropathy in this is not changed. No headache. No vision changes. No abdominal pain or nausea vomiting. Related Data Home Medications Medication Instructions Recorded Confirmed fluticasone furoate 200 1 inh INHALATION DAILY 11/03/20 09/01/21 mcg-vilanterol 25 mcg/dose inhalation powder (Breo Ellipta) lidocaine 4 % topical patch 1 patch TOPICAL DAILY PRN 11/03/20 09/01/21 (Blue-Emu Lidocaine Patch) magnesium 250 mg tablet 250 mg PO DAILY 12/02/20 09/01/21 aspirin 81 mg chewable tablet 81 mg PO DAILY tab 06/17/21 09/01/21 omeprazole 20 mg capsule,delayed 20 mg PO DAILY cap 06/17/21 09/01/21 release Previous Rx's Medication Instructions Recorded multivitamin (Tab-A-Iqra) 1 tab PO DAILY #30 tab 09/14/19 thiamine HCl (vitamin B1) 100 mg 100 mg PO DAILY #30 tab 09/14/19 tablet (Vitamin B-1) fluticasone furoate 200 1 inh INHALATION DAILY #60 each 03/16/21 mcg-vilanterol 25 mcg/dose inhalation powder albuterol sulfate 90 mcg/actuation See Rx Instructions .ROUTE 03/25/21 aerosol inhaler (Ventolin HFA) .COMPLEX #18 gram umeclidinium 62.5 mcg/actuation See Rx Instructions .ROUTE 04/14/21 blister powder for inhalation .COMPLEX #30 ea (Incruse Ellipta) amlodipine 5 mg tablet See Rx Instructions .ROUTE 07/18/21 .COMPLEX #180 tab rosuvastatin 5 mg tablet See Rx Instructions .ROUTE 08/26/21 .COMPLEX #90 tab Allergies Allergy/AdvReac Type Severity Reaction Status Date / Time No Known Drug Allergies Allergy Unknown Verified 06/17/21 12:56 Review of Systems Review of Systems ROS Unobtainable: All systems reviewed & are unremarkable except as noted in HPI and below Patient History Medical History Adenocarcinoma of right lung, stage 1 (~05/10/20) Anemia Benign prostatic hyperplasia (01/29/12) BPH w urinary obs/LUTS Bradycardia Cellulitis Centrilobular emphysema (12/13/16) Cholesteatoma (09/10/12) Chronic kidney disease (CKD) stage G3a/A1, moderately decreased glomerular filtration rate (GFR) between 45-59 mL/min/1.73 square meter and albuminuria creatinine ratio less than 30 mg/g COPD (chronic obstructive pulmonary disease) DNR (do not resuscitate) Hemorrhagic cerebrovascular accident (CVA) (~2006) Hydronephrosis, left Hyperlipidemia Hypertension Lower urinary tract symptoms (LUTS) Lung cancer Macrocytic anemia (07/06/16) Mild alcohol abuse (03/26/15) Olecranon bursitis Peripheral vascular disease of foot (05/31/17) Pneumonia Primary adenocarcinoma of upper lobe of right lung Sinusitis Stenosis of left femoral artery Stroke Substance abuse Syncope Syncope and collapse (09/10/12) Tobacco use disorder, continuous (09/10/12) Transient cerebral ischemia (04/23/12) Traumatic compression fracture of seventh thoracic vertebra, sequela (10/09/16) Tubular adenoma Urinary retention Surgical History History of carpal tunnel repair (03/02/15) History of cataract removal with insertion of prosthetic lens (02/16/15) History of cataract removal with insertion of prosthetic lens (03/09/15) History of tonsillectomy Status post appendectomy Status post colonoscopy (10/06/09) Status post lobectomy of lung (~04/2020) Status post repair of hydrocele (05/22/11) Family History Brother Lung cancer Father Lung cancer Mother Migraines Social History marital status: number of children: 2 household members: spouse Smoking Status: Current every day smoker Tobacco: How many years used: 69 quit status: considering quitting alcohol intake: current caffeine: Yes Smoking Status: Current every day smoker alcohol intake frequency: 3 or more drinks per day Substance Use Type: does not use Exam Initial Vital Signs Initial Vital Signs: Vital Signs Pulse Rate 39 L 09/07/21 16:45 Pulse Oximetry 97 09/07/21 16:45 Const General: cooperative, comfortable and No ill appearing HENMT Head: normal to inspection and normocephalic Eyes General: appearance normal, both eyes and all related structures Resp Effort & Inspection: normal respiratory effort Auscultation: clear to auscultation bilaterally Cardio Rate: bradycardic Rhythm: regular rhythm GI Inspection: normal to inspection Neuro General: patient alert, patient awake and moves all extremities Extrem General: normal to inspection and capillary refill normal Psych Appearance: grossly normal and disheveled Scores GCS [place] coma scale eye opening: Spontaneous [place] coma scale verbal response: Orientated [place] coma scale motor response: Obey commands [place] coma scale total score: 15 Course Orders Ordered: ED Orders 09/07/21 16:55 EKG-12 Lead Stat 09/07/21 17:06 COVID19 -Nasal swab/Pre-Proc Stat Complete Blood Count AUTO DIFF Stat Comprehensive Metabolic Panel Stat Lipase Stat Magnesium Stat NT-proBNP (BNP-Adult 18+) Stat Partial Thromboplastin Time Stat Prothrombin Time INR Stat Troponin & CK Cardiac Panel Stat Type and Screen Stat 09/07/21 17:11 XR chest 1V Stat 09/07/21 17:30 ABG [Arterial Blood Gas] Stat 09/07/21 19:28 Troponin & CK Cardiac Panel Stat Vital Signs Vital signs: Vital Signs - 8 hr 09/07/21 16:45 09/07/21 16:47 09/07/21 17:00 Temperature Pulse Rate 39 L 38 L 36 L Respiratory Rate 19 15 Blood Pressure 166/72 H Pulse Oximetry 97 98 98 09/07/21 17:13 09/07/21 17:20 09/07/21 17:30 Temperature 97.9 F Pulse Rate 34 L 37 L 37 L Respiratory Rate 20 17 18 Blood Pressure 166/72 H 160/69 H Pulse Oximetry 98 96 99 09/07/21 17:45 09/07/21 18:00 09/07/21 18:30 Temperature Pulse Rate 38 L 34 L 35 L Respiratory Rate 17 17 19 Blood Pressure 168/79 H Pulse Oximetry 95 98 98 09/07/21 18:54 09/07/21 18:55 09/07/21 19:00 Temperature Pulse Rate 38 L 37 L 37 L Respiratory Rate 17 17 16 Blood Pressure 169/72 H 169/72 H Pulse Oximetry 99 96 97 09/07/21 19:01 Temperature Pulse Rate 38 L Respiratory Rate 12 Blood Pressure 159/70 H Pulse Oximetry 96 Medical Decision Making Lab Data Lab results reviewed: Yes I reviewed the patient's lab results. Result diagrams: 09/07/21 17:06 09/07/21 17:06 Labs: Lab Results 09/07/21 09/07/21 09/07/21 Range/Units 17:06 17:06 17:06 WBC 2.5 L (4.5-11.0) X10^3/uL RBC 2.90 L (4.5-5.9) X10^6/uL Hgb 10.2 L (13.5-17.5) g/dL Hct 30.9 L (41-53) % MCV 106.4 H (80-100) fL MCH 35.3 H (26-34) PG MCHC 33.2 (30-36) % RDW 17.1 H (11.6-14.8) % Plt Count 189 (150-400) X10^3/uL Neut % (Auto) 42.4 L (50-75) % Lymph % (Auto) 40.9 H (25-40) % [place] % (Auto) 13.7 (3-14) % Eos % (Auto) 2.0 (2-4) % Baso % (Auto) 1.0 (0-2) % Neut # (Auto) 1100 L (0708-4009) /uL Lymph # (Auto) 1000 L (9186-9210) /uL [place] # (Auto) 300 (0-900) /uL Eos # (Auto) 100 (0-450) /uL Baso # (Auto) 0 (0-100) /uL PT 11.2 (10.1-12.7) SECONDS INR 1.0 (0.9-1.3) APTT (26.4-36.2) SECONDS ABG pH (7.35-7.45) ABG pCO2 (35-45) mmHg ABG pO2 (80-100) mmHg ABG HCO3 (22-26) mmol/L ABG Total CO2 (21-31) mmol/L ABG O2 Saturation (95-100) % ABG Base Excess (-2-2) mmol/L FiO2 Sodium 138 (137-145) mmol/L Potassium 5.1 (3.4-5.1) mmol/L Chloride 104 (98-107) mmol/L Carbon Dioxide 33 H (22-32) mmol/L BUN 43 H (9-20) mg/dL Creatinine 1.62 H (0.66-1.25) mg/dL Estimated GFR 40.9 L (>60) mL/min BUN/Creatinine Ratio 26.5 H (6-22) Glucose 147 H (80-110) mg/dL Calcium 10.0 (8.4-10.2) mg/dL Magnesium 2.3 (1.6-2.3) mg/dL Total Bilirubin 0.5 (0.2-1.3) mg/dL AST 58 (17-59) IU/L ALT 34 (<50) IU/L Alkaline Phosphatase 88 (38-126) U/L Total Creatine Kinase 115 (55-170) U/L CK-MB (CK-2) 8.93 H (<2.37) ng/mL CK-MB (CK-2) Rel Index 7.8 H* (1.5-5.0) % Troponin I < 0.012 (0.01-0.034) ng/mL NT-Pro-B Natriuret Pep (<450) pg/mL Total Protein 8.5 H (6.3-8.2) g/dL Albumin 4.5 (3.5-5.0) g/dL Globulin 4.0 (1.7-4.1) g/dL Albumin/Globulin Ratio 1.1 (1.0-2.8) Lipase 62 (23-300) U/L SARS-CoV-2 (PCR) (Negative) Blood Type Antibody Screen 09/07/21 09/07/21 09/07/21 Range/Units 17:06 17:06 17:06 WBC (4.5-11.0) X10^3/uL RBC (4.5-5.9) X10^6/uL Hgb (13.5-17.5) g/dL Hct (41-53) % MCV (80-100) fL MCH (26-34) PG MCHC (30-36) % RDW (11.6-14.8) % Plt Count (150-400) X10^3/uL Neut % (Auto) (50-75) % Lymph % (Auto) (25-40) % [place] % (Auto) (3-14) % Eos % (Auto) (2-4) % Baso % (Auto) (0-2) % Neut # (Auto) (9643-4745) /uL Lymph # (Auto) (8961-3864) /uL [place] # (Auto) (0-900) /uL Eos # (Auto) (0-450) /uL Baso # (Auto) (0-100) /uL PT (10.1-12.7) SECONDS INR (0.9-1.3) APTT 49 H D (26.4-36.2) SECONDS ABG pH (7.35-7.45) ABG pCO2 (35-45) mmHg ABG pO2 (80-100) mmHg ABG HCO3 (22-26) mmol/L ABG Total CO2 (21-31) mmol/L ABG O2 Saturation (95-100) % ABG Base Excess (-2-2) mmol/L FiO2 Sodium (137-145) mmol/L Potassium (3.4-5.1) mmol/L Chloride (98-107) mmol/L Carbon Dioxide (22-32) mmol/L BUN (9-20) mg/dL Creatinine (0.66-1.25) mg/dL Estimated GFR (>60) mL/min BUN/Creatinine Ratio (6-22) Glucose (80-110) mg/dL Calcium (8.4-10.2) mg/dL Magnesium (1.6-2.3) mg/dL Total Bilirubin (0.2-1.3) mg/dL AST (17-59) IU/L ALT (<50) IU/L Alkaline Phosphatase (38-126) U/L Total Creatine Kinase (55-170) U/L CK-MB (CK-2) (<2.37) ng/mL CK-MB (CK-2) Rel Index (1.5-5.0) % Troponin I (0.01-0.034) ng/mL NT-Pro-B Natriuret Pep 529 H (<450) pg/mL Total Protein (6.3-8.2) g/dL Albumin (3.5-5.0) g/dL Globulin (1.7-4.1) g/dL Albumin/Globulin Ratio (1.0-2.8) Lipase (23-300) U/L SARS-CoV-2 (PCR) Negative (Negative) Blood Type Antibody Screen 09/07/21 09/07/21 Range/Units 17:06 17:30 WBC (4.5-11.0) X10^3/uL RBC (4.5-5.9) X10^6/uL Hgb (13.5-17.5) g/dL Hct (41-53) % MCV (80-100) fL MCH (26-34) PG MCHC (30-36) % RDW (11.6-14.8) % Plt Count (150-400) X10^3/uL Neut % (Auto) (50-75) % Lymph % (Auto) (25-40) % [place] % (Auto) (3-14) % Eos % (Auto) (2-4) % Baso % (Auto) (0-2) % Neut # (Auto) (8785-7262) /uL Lymph # (Auto) (0973-6262) /uL [place] # (Auto) (0-900) /uL Eos # (Auto) (0-450) /uL Baso # (Auto) (0-100) /uL PT (10.1-12.7) SECONDS INR (0.9-1.3) APTT (26.4-36.2) SECONDS ABG pH 7.38 (7.35-7.45) ABG pCO2 51.6 H (35-45) mmHg ABG pO2 103 H (80-100) mmHg ABG HCO3 31 H (22-26) mmol/L ABG Total CO2 32 H (21-31) mmol/L ABG O2 Saturation 98 (95-100) % ABG Base Excess 5.0 H (-2-2) mmol/L FiO2 21 Sodium (137-145) mmol/L Potassium (3.4-5.1) mmol/L Chloride (98-107) mmol/L Carbon Dioxide (22-32) mmol/L BUN (9-20) mg/dL Creatinine (0.66-1.25) mg/dL Estimated GFR (>60) mL/min BUN/Creatinine Ratio (6-22) Glucose (80-110) mg/dL Calcium (8.4-10.2) mg/dL Magnesium (1.6-2.3) mg/dL Total Bilirubin (0.2-1.3) mg/dL AST (17-59) IU/L ALT (<50) IU/L Alkaline Phosphatase (38-126) U/L Total Creatine Kinase (55-170) U/L CK-MB (CK-2) (<2.37) ng/mL CK-MB (CK-2) Rel Index (1.5-5.0) % Troponin I (0.01-0.034) ng/mL NT-Pro-B Natriuret Pep (<450) pg/mL Total Protein (6.3-8.2) g/dL Albumin (3.5-5.0) g/dL Globulin (1.7-4.1) g/dL Albumin/Globulin Ratio (1.0-2.8) Lipase (23-300) U/L SARS-CoV-2 (PCR) (Negative) Blood Type O Positive Antibody Screen Negative ECG Data Attestation: I personally reviewed and interpreted this ECG as follows: Prior ECG tracings: not available for review Interpretation: Sinus rhythm Ventricular rate 39 Normal axis Normal QRS LVH No ST T changes MDM Narrative Medical decision making narrative: Patient has known coronary artery disease and is in need of a PCI however has been unable to do so because of his anemia issue. He also has lung cancer. Is being followed by Oncology. Has anemia that according to Oncology notes is most likely anemia of chronic disease secondary to his COPD. He does have oxygen at home which she uses every night. Patient not anemic today. He is mentating phone. Normal blood pressure. Patient is on amlodipine but no other hanh blocking agents. Patient does have symptomatic bradycardia. Care turned over to Dr. Camara to follow up and disposition. Discharge Plan Departure Prescriptions: No Action fluticasone furoate-vilanterol 200-25 mcg/dose blister with device 1 inh INHALATION DAILY Qty: 60 6RF albuterol sulfate [Ventolin HFA] 90 mcg/actuation HFA aerosol inhaler See Rx Instructions .ROUTE .COMPLEX Qty: 18 2RF Dose Instruction: INHALE 2 PUFFS INTO THE LUNGS EVERY 4 HOURS NEEDED FOR SHORTNESS OF BREATH OR WHEEZING. ADMINISTER WITH SPACER Rx Instructions: INHALE 2 PUFFS INTO THE LUNGS EVERY 4 HOURS NEEDED FOR SHORTNESS OF BREATH OR WHEEZING. ADMINISTER WITH SPACER Incruse Ellipta 62.5 mcg/actuation blister with device See Rx Instructions .ROUTE .COMPLEX Qty: 30 3RF Dose Instruction: INHALE 1 PUFF INTO THE LUNGS EVERY DAY Rx Instructions: INHALE 1 PUFF INTO THE LUNGS EVERY DAY amlodipine 5 mg tablet See Rx Instructions .ROUTE .COMPLEX Qty: 180 0RF Dose Instruction: TAKE 1 TABLET BY MOUTH TWICE DAILY Rx Instructions: TAKE 1 TABLET BY MOUTH TWICE DAILY rosuvastatin 5 mg tablet See Rx Instructions .ROUTE .COMPLEX Qty: 90 0RF Dose Instruction: TAKE 1 TABLET BY MOUTH DAILY Rx Instructions: TAKE 1 TABLET BY MOUTH DAILY aspirin 81 mg tablet,chewable 81 mg PO DAILY 0RF omeprazole 20 mg capsule,delayed release(DR/EC) 20 mg PO DAILY 0RF multivitamin [Tab-A-Iqra] Tablet 1 tab PO DAILY Qty: 30 0RF thiamine HCl (vitamin B1) [Vitamin B-1] 100 mg Tablet 100 mg PO DAILY Qty: 30 0RF magnesium 250 mg Tablet 250 mg PO DAILY 0RF Rx Instructions: pt to verify dose Breo Ellipta 200-25 mcg/dose Blister With Device 1 inh INHALATION DAILY 0RF lidocaine [Blue-Emu Lidocaine Patch] 4 % Adhesive Patch,Medicated 1 patch TOPICAL DAILY PRN (Reason: Pain (Scale Score 4-6)) 0RF Referrals: Navya Rodriguez DO [Primary Care Provider] -
--- NOTE | 2021-09-07 17:11 | DI.RAD.S_ITS ---
PROCEDURE: XR CHEST 1V INDICATIONS: chest pain TECHNIQUE: One view of the chest was acquired. COMPARISON: [facility], CT, CT CHEST WO CON, 08/25/2021, 11:13. [facility], CR, XR CHEST 1V, 11/03/2020, 13:42. FINDINGS: Surgical changes and devices: None. Lungs and pleura: Right basilar atelectasis and or infiltrate associated with eventration of the right hemidiaphragm. There is underlying hyperinflation and chronic interstitial changes. Volume loss and suture line noted in the right upper lobe consistent with lobectomy Mediastinum: Mediastinal contours appear normal. Heart size is normal. Atherosclerotic vascular calcification noted in the aortic arch. Bones and chest wall: No suspicious bony lesions. Overlying soft tissues appear unremarkable. IMPRESSION: Right basilar atelectasis and or infiltrate Underlying hyperinflation and chronic interstitial changes Surgical scarring and volume loss right upper lobe Approved by: Mika Glover M.D. on 09/07/2021 at 17:27
--- NOTE | 2021-09-07 17:22 | PC.NURSE ---
Pt's reports pt having CP x several days. 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 Per : cat scan last week showed mets in lungs, two new lesions in lungs, plus a new mass in lung
[2021-09-07 17:24] LABS: Prothrombin Time 11.2 SECONDS (10.1-12.7)
--- NOTE | 2021-09-07 17:26 | PC.NURSE ---
states she was Covid positive last week.
[2021-09-07 17:29] LABS: Add Manual Diff / Slide Review NO; Basophils Absolute Auto 0 /uL (0-100); Eosinophils Absolute Auto 100 /uL (0-450); Hematocrit 30.9 % (41-53); Hemoglobin 10.2 g/dL (13.5-17.5); Lymphocytes Absolute Auto 1000 /uL (1100-4500); Lymphocytes Percent Auto 40.9 % (25-40); Mean Corpuscular HGB Conc 33.2 % (30-36); Mean Corpuscular Hemoglobin 35.3 PG (26-34); Mean Corpuscular Volume 106.4 fL (80-100); Monocytes Absolute Auto 300 /uL (0-900); Monocytes Percent Auto 13.7 % (3-14); Neutrophils Absolute Auto 1100 /uL (1500-7000); Neutrophils Percent Auto 42.4 % (50-75); Platelet Count 189 X10^3/uL (150-400); Red Cell Distribution Width 17.1 % (11.6-14.8); White Blood Cell Count 2.5 X10^3/uL (4.5-11.0)
[2021-09-07 17:32] LABS: PTT Partial Thromboplastin Tim 49 SECONDS (26.4-36.2)
[2021-09-07 17:36] LABS: Alanine Aminotransferase 34 IU/L (<50); Albumin 4.5 g/dL (3.5-5.0); Albumin Globulin Ratio 1.1 (1.0-2.8); Alkaline Phosphatase 88 U/L (38-126); Aspartate Aminotransferase 58 IU/L (17-59); BUN Creatinine Ratio 26.5 (6-22); Bilirubin Total 0.5 mg/dL (0.2-1.3); Blood Urea Nitrogen 43 mg/dL (9-20); Carbon Dioxide 33 mmol/L (22-32); Chloride 104 mmol/L (98-107); Creatine Kinase 115 U/L (55-170); Estimated Glomerular Filt Rate 40.9 mL/min (>60); Glucose 147 mg/dL (80-110); HEMOLYSIS < 15 (0-50); Lipase 62 U/L (23-300); Magnesium 2.3 mg/dL (1.6-2.3); Potassium 5.1 mmol/L (3.4-5.1); Sodium 138 mmol/L (137-145); Total Protein 8.5 g/dL (6.3-8.2)
[2021-09-07 17:45] LABS: NT-proBNP (BNP-Adult 18+) 529 pg/mL (<450)
[2021-09-07 17:46] LABS: HCO3 ABG 31 mmol/L (22-26); PCO2 ABG 51.6 mmHg (35-45); PO2 ABG 103 mmHg (80-100); TCO2 ABG 32 mmol/L (21-31); pH ABG 7.38 (7.35-7.45)
[2021-09-07 17:47] LABS: Fractionated Inspired Oxygen 21; Oxygen Saturation ABG 98 % (95-100)
[2021-09-07 17:48] LABS: Troponin I < 0.012 ng/mL (0.01-0.034)
[2021-09-07 17:59] LABS: CKMB % Relative Index 7.8 % (1.5-5.0)
[2021-09-07 18:34] LABS: Creatine Kinase MB 8.93 ng/mL (<2.37)
[2021-09-07 19:06] LABS: COVID19 -Nasal RAPID Negative (Negative)
[2021-09-07 20:07] LABS: Creatine Kinase 92 U/L (55-170)
[2021-09-07 20:19] LABS: Troponin I < 0.012 ng/mL (0.01-0.034)
[2021-09-07] MEDS: ATROPINE 1 MG/10 ML SYRINGE 0.5 MG IV (20:41)
[2021-09-07 20:51] LABS: Creatine Kinase MB 8.12 ng/mL (<2.37)
[2021-09-07 20:56] LABS: CKMB % Relative Index 8.8 % (1.5-5.0)
--- NOTE | 2021-09-07 21:39 | PC.NURSE ---
increase in HR to 55 after 0.5mg atropine
[2021-09-08] VITALS: PULSE 34; RESP 13; O2SAT 96
[2021-09-08 00:01] VITALS: BP 165/72; PULSE 36; RESP 15; O2SAT 97
[2021-09-08 00:30] VITALS: PULSE 36; RESP 15; O2SAT 95
[2021-09-08 00:31] VITALS: BP 163/75; PULSE 39; RESP 14; O2SAT 96
== END 2021-09-08 03:47 | disposition short-term general hospital (02) ==
PROVIDERS: Emergency Medicine; Emergency Provider Emergency Medicine; PCP Family Medicine
DX: R07.9 Chest pain, unspecified (principal); R06.02 Shortness of breath; R00.1 Bradycardia, unspecified; R53.83 Other fatigue; C34.90 Malignant neoplasm of unspecified part of unspecified bronchus or lung; F17.200 Nicotine dependence, unspecified, uncomplicated; Z20.822 Contact with and (suspected) exposure to COVID-19
CPT/HCPCS: 36415; 36600; 71045; 80053; 82550; 82553; 82805; 83690; 83735; 83880; 84443; 84484; 85025; 85610; 85730; 86850; 86900; 86901; 87635; 93005; 96374; 99284; 99285; C9803; J0461

== ENCOUNTER → 2021-09-15 07:45 | Outpatient (CLI) | payer MEDICARE, OTHER, SELFPAY ==
[2020-11-03 14:56] VITALS: BMI 23.6
--- NOTE | 2021-09-15 07:47 | DI.NM.S_ITS ---
PROCEDURE: [place] BONE SCAN WHOLE BODY RADIOPHARMACEUTICAL: 20.9 mCi Tc-99m MDP IV. INDICATIONS: Right lung cancer, left lung nodule TECHNIQUE: Delayed whole-body scintigrams were obtained approximately 3-4 hours after intravenous injection of radiotracer. Anterior and posterior views were acquired from vertex to feet. Additional left and right oblique views of the thoracic spine and ribcage were obtained. COMPARISON: [facility], [place] PET CT FUSION SKULL 2 THIGH, 03/10/2020, 14:48. [facility], CT, CT CHEST WO CON, 08/25/2021, 11:13. FINDINGS: There is a focal uptake in the mid sternum, correlating with an old healed sternal fracture seen on the comparison CT. Increased uptake in the maxilla is most likely related to dental disease. No lesions are identified in skull, clavicles, scapulae, ribs, bony pelvis, and visualized shafts of the long bones. There is low level increased uptake in cervical, thoracic and lumbar spine with distribution indistinguishable from degenerative disc and facet disease; early metastasis to spine could be obscured by degenerative changes. There are foci of increased periarticular activity, compatible with degenerative/arthritic changes. IMPRESSION: 1. No definitive scintigraphic findings for osseous metastasis. Dictated by: Teresa Yin M.D. on 09/15/2021 at 12:42 Approved by: Teresa Yin M.D. on 09/15/2021 at 12:45
== END ==
PROVIDERS: PCP Family Medicine; Referring Provider Internal Medicine Hematology & Oncology; Visit Provider Internal Medicine Hematology & Oncology
DX: C34.91 Malignant neoplasm of unspecified part of right bronchus or lung (principal); R91.1 Solitary pulmonary nodule
CPT/HCPCS: 78306; A9503

== ENCOUNTER 2021-09-19 15:34 | Emergency (ER) | payer MEDICARE, OTHER, SELFPAY ==
[2020-11-03 14:56] VITALS: BMI 23.6
--- NOTE | 2021-09-19 15:39 | DI.CT.S_ITS ---
PROCEDURE: CT HEAD/BRAIN WO CON INDICATIONS: fall hit head on thinners TECHNIQUE: Noncontrast 4.5 mm thick angled axial sections acquired from the foramen magnum to the vertex, with coronal and sagittal reformats. For radiation dose reduction, the following was used: automated exposure control, adjustment of mA and/or kV according to patient size. COMPARISON: None. FINDINGS: Image quality: Excellent. CSF spaces: Basal cisterns are patent. No extra-axial fluid collections. The ventricles are symmetric in size and shape. Brain: No intracranial bleeds or masses. There is cerebral volume loss for age, with resultant ventricular and sulcal prominence. There are periventricular and deep white matter chronic small vessel ischemic changes. There is intracranial internal carotid artery atherosclerosis. Skull and face: Calvarium and visualized facial bones appear intact, without suspicious lesions. Sinuses: Visualized sinuses and mastoids are clear. IMPRESSION: No acute intracranial abnormality demonstrated. Dictated by: Clive Hinds M.D. on 09/19/2021 at 16:09 Approved by: Clive Hinds M.D. on 09/19/2021 at 16:10
[2021-09-19 15:41] VITALS: BP 123/65; PULSE 60; RESP 16; TEMP 36.4; O2SAT 100; BMI 23.6
--- NOTE | 2021-09-19 15:53 | DI.RAD.S_ITS ---
PROCEDURE: XR HIP W PEL IF DONE RT 2V INDICATIONS: fall TECHNIQUE: In 2 views of the hip were acquired. COMPARISON: None. FINDINGS: Bones: No fractures or dislocations. No suspicious bony lesions. The visualized pelvic ring appears intact. Bilateral mild acetabular joint space narrowing Soft tissues: No suspicious soft tissue calcifications or masses. Diffuse atherosclerotic vascular calcification noted IMPRESSION: No fracture or subluxation present. Osteopenia and moderate atherosclerosis Approved by: Mika Glover M.D. on 09/19/2021 at 15:46
[2021-09-19] MEDS: TET,DIPH,PERTUSS(ACELL),VAC/PF 0.5 ML SYRINGE IM (19:43)
[2021-09-19] MEDS: OXYCODONE/ACETAMINOPHEN 5/325 TABLET 1 TAB PO (19:52)
[2021-09-19 20:02] VITALS: BP 124/60; PULSE 62; RESP 18; O2SAT 98
--- NOTE | 2021-09-20 19:58 | ED_ITS ---
HPI - Fall <Hang Ramos PA-C - Last Filed: 09/27/21 18:03> General Chief Complaint: Fall Stated Complaint: GLF on thinners Time Seen by Provider: 09/19/21 19:22 History of Present Illness HPI Narrative: 85-year-old male with past medical history COPD, anemia, urinary retention, chronic kidney disease, hyperlipidemia, hypertension, BPH, TIA, CVA presents to the ED status post a fall sustained just prior to arrival. Patient was standing on some milk crates that were 6 ft high, fell and hit his head. Patient is not on blood thinners. Denies loss of consciousness. Patient is status post a recent pacemaker placement. patient complains of pain at the site of the injury on his left forehead. Patient complains of left-sided hip pain. Patient denies chest pain, shortness of breath, abdominal pain, flank pain, dysuria, lightheadedness, dizziness, syncope. Related Data Home Medications Medication Instructions Recorded Confirmed fluticasone furoate 200 1 inh INHALATION DAILY 11/03/20 10/06/21 mcg-vilanterol 25 mcg/dose inhalation powder (Breo Ellipta) lidocaine 4 % topical patch 1 patch TOPICAL DAILY PRN 11/03/20 10/06/21 (Blue-Emu Lidocaine Patch) magnesium 250 mg tablet 250 mg PO DAILY 12/02/20 10/06/21 aspirin 81 mg chewable tablet 81 mg PO DAILY tab 06/17/21 10/06/21 omeprazole 20 mg capsule,delayed 20 mg PO DAILY cap 06/17/21 10/06/21 release Previous Rx's Medication Instructions Recorded multivitamin (Tab-A-Iqra) 1 tab PO DAILY #30 tab 09/14/19 thiamine HCl (vitamin B1) 100 mg 100 mg PO DAILY #30 tab 09/14/19 tablet (Vitamin B-1) fluticasone furoate 200 1 inh INHALATION DAILY #60 each 03/16/21 mcg-vilanterol 25 mcg/dose inhalation powder albuterol sulfate 90 mcg/actuation See Rx Instructions .ROUTE 03/25/21 aerosol inhaler (Ventolin HFA) .COMPLEX #18 gram umeclidinium 62.5 mcg/actuation See Rx Instructions .ROUTE 04/14/21 blister powder for inhalation .COMPLEX #30 ea (Incruse Ellipta) amlodipine 5 mg tablet See Rx Instructions .ROUTE 07/18/21 .COMPLEX #180 tab rosuvastatin 5 mg tablet See Rx Instructions .ROUTE 08/26/21 .COMPLEX #90 tab Allergies Allergy/AdvReac Type Severity Reaction Status Date / Time No Known Drug Allergies Allergy Unknown Verified 10/06/21 14:59 Review of Systems <Hang Ramos PA-C - Last Filed: 09/27/21 18:03> Review of Systems Narrative: abrasions to left forehead ROS Unobtainable: All systems reviewed & are unremarkable except as noted in HPI and below Constitutional Constitutional: Denies chills, Denies fatigue, Denies fever(s), Denies frequent falls, Denies lethargy and Denies weakness Eyes Eyes: Denies change in vision, Denies eye discharge, Denies irritation and Denies loss of vision ENT Ears, Nose, Mouth, and Throat: Denies change in voice, Denies dizziness, Denies neck pain, Denies sore throat and Denies throat swelling Cardiovascular Cardiovascular: Denies chest pain, Denies irregular heart rhythm, Denies lightheadedness, Denies palpitations, Denies dyspnea, Denies dyspnea on exertion and Denies orthopnea Respiratory Respiratory: Denies cough, Denies dyspnea, Denies dyspnea on exertion and Denies wheezing Gastrointestinal Gastrointestinal: Denies abdominal pain, Denies change in bowel habits, Denies diarrhea, Denies nausea and Denies vomiting Genitourinary Genitourinary: Denies hematuria, Denies flank pain, Denies urinary incontinence and Denies urinary urgency Musculoskeletal Musculoskeletal: Denies back pain, Denies muscle weakness, Denies neck pain, Denies numbness and Denies tingling Comments: Left-sided hip pain Integumentary/Breasts Skin/Breast: Denies pruritus, Denies erythema, Denies rash and Denies wounds Neurologic Neurologic: Denies behavioral changes, Denies confusion, Denies dizziness, Denies frequent falls, Denies loss of vision, Denies numbness, Denies tingling and Denies weakness Psychiatric Psychiatric: Denies anxiety, Denies behavioral changes, Denies confusion, Denies depression, Denies homicidal ideation and Denies suicidal ideation Endocrine Endocrine: Denies fatigue, Denies flushing and Denies palpitations Hematologic/Lymphatic Hematologic/Lymphatic: Denies easy bruising Allergic/Immunologic Allergic/Immunologic: Denies urticaria, Denies throat swelling and Denies wheezing Patient History <Hang Ramos PA-C - Last Filed: 09/27/21 18:03> Medical History Adenocarcinoma of right lung, stage 1 (~05/10/20) Anemia Benign prostatic hyperplasia (01/29/12) BPH w urinary obs/LUTS Bradycardia Cellulitis Centrilobular emphysema (12/13/16) Cholesteatoma (09/10/12) Chronic kidney disease (CKD) stage G3a/A1, moderately decreased glomerular filtration rate (GFR) between 45-59 mL/min/1.73 square meter and albuminuria creatinine ratio less than 30 mg/g COPD (chronic obstructive pulmonary disease) DNR (do not resuscitate) Hemorrhagic cerebrovascular accident (CVA) (~2006) Hydronephrosis, left Hyperlipidemia Hypertension Lower urinary tract symptoms (LUTS) Lung cancer Macrocytic anemia (07/06/16) Mild alcohol abuse (03/26/15) Olecranon bursitis Peripheral vascular disease of foot (05/31/17) Pneumonia Primary adenocarcinoma of upper lobe of right lung Sinusitis Stenosis of left femoral artery Stroke Substance abuse Syncope Syncope and collapse (09/10/12) Tobacco use disorder, continuous (09/10/12) Transient cerebral ischemia (04/23/12) Traumatic compression fracture of seventh thoracic vertebra, sequela (10/09/16) Tubular adenoma Urinary retention Surgical History History of carpal tunnel repair (03/02/15) History of cataract removal with insertion of prosthetic lens (02/16/15) History of cataract removal with insertion of prosthetic lens (03/09/15) History of tonsillectomy Status post appendectomy Status post colonoscopy (10/06/09) Status post lobectomy of lung (~04/2020) Status post repair of hydrocele (05/22/11) Family History Brother Lung cancer Father Lung cancer Mother Migraines Social History marital status: number of children: 2 household members: spouse Smoking Status: Current every day smoker Tobacco: How many years used: 69 quit status: considering quitting alcohol intake: current caffeine: Yes Smoking Status: Current every day smoker alcohol intake frequency: 3 or more drinks per day Substance Use Type: does not use Exam <Hang Ramos PA-C - Last Filed: 09/27/21 18:03> Initial Vital Signs Initial Vital Signs: Vital Signs Temperature 97.5 F L 09/19/21 15:41 Pulse Rate 60 09/19/21 15:41 Respiratory Rate 16 09/19/21 15:41 Blood Pressure 123/65 09/19/21 15:41 Pulse Oximetry 100 09/19/21 15:41 Const General: cooperative, healthy appearing and comfortable [facility] Head: abrasion ( 2 abrasions to left forehead, bleeding controlled.), No Serrano's sign, No hematoma, No palpable skull fracture and No raccoon eyes Ears: hearing grossly normal bilaterally Face and sinus: normal facial exam Mouth: oral mucosae normal Throat: posterior oropharynx normal Eyes General: appearance normal, both eyes and all related structures Neck Neck: normal visual inspection Chest Chest: normal inspection of the chest Resp Effort & Inspection: normal respiratory effort Auscultation: clear to auscultation bilaterally Cardio Rate: regular rate Rhythm: regular rhythm GI Other: Abdomen is soft, nontender, nondistended. No CVA tenderness. General: No CVA tenderness Back/Spine/Pelvis Other: No midline tenderness to palpation. Neuro General: patient alert, patient awake and patient oriented x3 Psych Appearance: grossly normal Mental Status: mental status grossly normal Course <Hang Ramos PA-C - Last Filed: 09/27/21 18:03> Orders Ordered: Discontinued Medications Diphtheria/Tetanus/Acell Pertussis (Tet,Diph,Pertuss(Acell),Vac/Pf 0.5 Ml Syringe) 0.5 ml IM .ONCE ONE Stop: 09/19/21 19:38 Last Admin: 09/19/21 19:43 Dose: 0.5 ml Documented by: KENAN Morphine Sulfate (Morphine 4 Mg/Ml Inj) 4 mg IV NOW ONE Stop: 09/19/21 19:39 Oxycodone/Acetaminophen (Oxycodone/Acetaminophen 5/325 Tablet) 1 tab PO NOW ONE Stop: 09/19/21 19:48 Last Admin: 09/19/21 19:52 Dose: 1 tab Documented by: [email or web address] MDM - Fall <Hang Ramos PA-C - Last Filed: 09/27/21 18:03> Medical Records Attestation: I reviewed the patient's medical records. Imaging Data Hip x-ray: Radiologist's Impression: PROCEDURE:? XR HIP W PEL IF DONE RT 2V ? INDICATIONS:? fall ? TECHNIQUE:? In 2 views of the hip were acquired.? ? COMPARISON:? None. ? FINDINGS:? ? Bones:? No fractures or dislocations.? No suspicious bony lesions.? The visualized pelvic ring appears intact.? Bilateral mild acetabular joint space narrowing ? Soft tissues:? No suspicious soft tissue calcifications or masses.? Diffuse atherosclerotic vascular calcification noted ? IMPRESSION:? ? No fracture or subluxation present. ? Osteopenia and moderate atherosclerosis ? ? Approved by: Mika Glover M.D. on 09/19/2021 at 15:46? CT scan - head: Radiologist's Impression: PROCEDURE:? CT HEAD/BRAIN WO CON ? INDICATIONS:? fall hit head on thinners ? TECHNIQUE:? Noncontrast 4.5 mm thick angled axial sections acquired from the foramen magnum to the vertex, with coronal and sagittal reformats.? For radiation dose reduction, the following was used:? automated exposure control, adjustment of mA and/or kV according to patient size.? ? COMPARISON:? None. ? FINDINGS:? Image quality:? Excellent.? ? CSF spaces:? Basal cisterns are patent.? No extra-axial fluid collections.? The ventricles are symmetric in size and shape.? ? Brain:? No intracranial bleeds or masses.? There is cerebral volume loss for age, with resultant ventricular and sulcal prominence.? There are periventricular and deep white matter chronic small vessel ischemic changes.? There is intracranial internal carotid artery atherosclerosis.? ? Skull and face:? Calvarium and visualized facial bones appear intact, without suspicious lesions.? ? Sinuses:? Visualized sinuses and mastoids are clear.? ? IMPRESSION:? No acute intracranial abnormality demonstrated. ? ? Dictated by: Clive Hinds M.D. on 09/19/2021 at 16:09 ? ? Approved by: Clive Hinds M.D. on 09/19/2021 at 16:10 ? [facility] Narrative Medical decision making narrative: 85-year-old male with past medical history COPD, anemia, urinary retention, chronic kidney disease, hyperlipidemia, hypertension, BPH, TIA, CVA presents to the ED status post a fall sustained just prior to arrival. Concern for intracranial bleeds versus skull fractures versus hip fracture. will obtained CT head, hip x-ray. will give morphine for pain. Will reassess CT head and x-ray negative for acute findings. Patient's pain considerably improved with pain control. Discharge patient home with ED return precautions. Patient verbalized understanding. Discharge Plan Departure Patient Disposition: Home Clinical Impression: Head injury Instructions: How to Prevent Falls Activity Restrictions/Additional Instructions: You were evaluated in the ED today for a head injury incurred from a fall. Your head CT, hip x-ray did not show fractures/dislocations or brain bleeds. Your tetanus was updated in the ED today. Pain was treated with morphine. Return to the ED if you have worsening symptoms, confusion, change in mental status, worsening pain. Please follow-up with your PCP as soon as possible. Prescriptions: No Action fluticasone furoate-vilanterol 200-25 mcg/dose blister with device 1 inh INHALATION DAILY Qty: 60 6RF albuterol sulfate [Ventolin HFA] 90 mcg/actuation HFA aerosol inhaler See Rx Instructions .ROUTE .COMPLEX Qty: 18 2RF Dose Instruction: INHALE 2 PUFFS INTO THE LUNGS EVERY 4 HOURS NEEDED FOR SHORTNESS OF BREATH OR WHEEZING. ADMINISTER WITH SPACER Rx Instructions: INHALE 2 PUFFS INTO THE LUNGS EVERY 4 HOURS NEEDED FOR SHORTNESS OF BREATH OR WHEEZING. ADMINISTER WITH SPACER Incruse Ellipta 62.5 mcg/actuation blister with device See Rx Instructions .ROUTE .COMPLEX Qty: 30 3RF Dose Instruction: INHALE 1 PUFF INTO THE LUNGS EVERY DAY Rx Instructions: INHALE 1 PUFF INTO THE LUNGS EVERY DAY amlodipine 5 mg tablet See Rx Instructions .ROUTE .COMPLEX Qty: 180 0RF Dose Instruction: TAKE 1 TABLET BY MOUTH TWICE DAILY Rx Instructions: TAKE 1 TABLET BY MOUTH TWICE DAILY rosuvastatin 5 mg tablet See Rx Instructions .ROUTE .COMPLEX Qty: 90 0RF Dose Instruction: TAKE 1 TABLET BY MOUTH DAILY Rx Instructions: TAKE 1 TABLET BY MOUTH DAILY aspirin 81 mg tablet,chewable 81 mg PO DAILY 0RF omeprazole 20 mg capsule,delayed release(DR/EC) 20 mg PO DAILY 0RF multivitamin [Tab-A-Iqra] Tablet 1 tab PO DAILY Qty: 30 0RF thiamine HCl (vitamin B1) [Vitamin B-1] 100 mg Tablet 100 mg PO DAILY Qty: 30 0RF magnesium 250 mg Tablet 250 mg PO DAILY 0RF Breo Ellipta 200-25 mcg/dose Blister With Device 1 inh INHALATION DAILY 0RF lidocaine [Blue-Emu Lidocaine Patch] 4 % Adhesive Patch,Medicated 1 patch TOPICAL DAILY PRN (Reason: Pain (Scale Score 4-6)) 0RF Referrals: Navya Rodriguez DO [Primary Care Provider] -
== END 2021-09-19 20:04 | disposition home or self-care (01) ==
PROVIDERS: Emergency Provider Student in an Organized Health Care Education/Training Program; PCP Family Medicine
DX: S00.81XA Abrasion of other part of head, initial encounter (principal); M25.551 Pain in right hip; W17.89XA Other fall from one level to another, initial encounter; Z23 Encounter for immunization
CPT/HCPCS: 70450; 73502; 90471; 99283; 99284; 90715

== ENCOUNTER → 2021-09-21 09:12 | Outpatient (CLI) | payer MEDICARE, OTHER, SELFPAY ==
[2020-11-03 14:56] VITALS: BMI 23.6
[2021-09-21 10:41] LABS: Add Manual Diff / Slide Review NO; Basophils Absolute Auto 0 /uL (0-100); Basophils Percent Auto 1.1 % (0-2); Eosinophils Absolute Auto 100 /uL (0-450); Eosinophils Percent Auto 3.7 % (2-4); Hematocrit 24.7 % (41-53); Hemoglobin 8.3 g/dL (13.5-17.5); Lymphocytes Absolute Auto 1000 /uL (1100-4500); Lymphocytes Percent Auto 25.1 % (25-40); Mean Corpuscular HGB Conc 33.5 % (30-36); Mean Corpuscular Volume 107.3 fL (80-100); Monocytes Absolute Auto 700 /uL (0-900); Monocytes Percent Auto 18.3 % (3-14); Neutrophils Absolute Auto 2000 /uL (1500-7000); Neutrophils Percent Auto 51.8 % (50-75); Platelet Count 205 X10^3/uL (150-400); Red Cell Distribution Width 17.4 % (11.6-14.8); White Blood Cell Count 3.8 X10^3/uL (4.5-11.0)
[2021-09-21 10:59] LABS: BUN Creatinine Ratio 19.2 (6-22); Blood Urea Nitrogen 47 mg/dL (9-20); Calcium 9.5 mg/dL (8.4-10.2); Carbon Dioxide 34 mmol/L (22-32); Chloride 99 mmol/L (98-107); Estimated Glomerular Filt Rate 25.4 mL/min (>60); Glucose 77 mg/dL (80-110); HEMOLYSIS < 15 (0-50); Sodium 136 mmol/L (137-145)
[2021-09-21 11:00] LABS: Potassium 5.7 mmol/L (3.4-5.1)
== END ==
PROVIDERS: Referring Provider Family Medicine; Visit Provider Family Medicine
DX: N18.31 Chronic kidney disease, stage 3a (principal); R00.1 Bradycardia, unspecified
CPT/HCPCS: 36415; 80048; 85025

== ENCOUNTER 2021-09-24 10:06 | Inpatient (IN) | payer MEDICARE, OTHER, SELFPAY ==
[2020-11-03 14:56] VITALS: BMI 23.6
[2021-09-24] VITALS (42 sets, daily range): BP systolic 113–139; BP diastolic 55–77; PULSE 64–80; RESP 16–35; TEMP 36.7–37.7; O2SAT 81–100; BMI 22.9
--- NOTE | 2021-09-24 | DI.CT.S_ITS ---
PROCEDURE: CT STROKE INDICATIONS: STROKE TECHNIQUE: Noncontrast 4.5 mm thick angled axial sections acquired from the foramen magnum to the vertex, with coronal reformats. For radiation dose reduction, the following was used: automated exposure control, adjustment of mA and/or kV according to patient size. COMPARISON: [facility], CT, CT HEAD/BRAIN WO CON, 09/19/2021, 15:50. FINDINGS: Image quality: Excellent. CSF spaces: Basal cisterns are patent. No extra-axial fluid collections. The ventricles are symmetric in size and shape. Brain: No intracranial bleeds or masses. There is cerebral volume loss for age, with resultant ventricular and sulcal prominence. There are periventricular and deep white matter chronic small vessel ischemic changes. There is intracranial internal carotid artery atherosclerosis. Skull and face: Left frontals scalp swelling is seen. Calvarium and visualized facial bones appear intact, without suspicious lesions. Sinuses: Visualized sinuses are clear. Chronic appearing partial opacification of bilateral mastoids are noted. IMPRESSION: 1. No CT evidence of acute intracranial abnormalities. No significant changes from previous study. 2. Mild left frontal scalp swelling, no acute skull fracture. Findings were reported to Dr. Ramirez in the ER at 10:17 a.m. On 09/24/2021. This study fulfills neurological imaging criteria for inclusion or exclusion of acute stroke therapies based on available published neurological guidelines. Dictated by: Ricardo Meyer M.D. on 09/24/2021 at 10:16 Approved by: Ricardo Meyer M.D. on 09/24/2021 at 10:19
--- NOTE | 2021-09-24 10:11 | DI.RAD.S_ITS ---
PROCEDURE: XR CHEST 1V INDICATIONS: Acute CVA. COPD. TECHNIQUE: One view of the chest was acquired. COMPARISON: [facility], CT, CT CHEST WO CON, 08/25/2021, 11:13. [facility], CR, XR CHEST 1V, 09/07/2021, 17:42. [facility], CR, XR CHEST 1V, 11/03/2020, 13:42. FINDINGS: Surgical changes and devices: Left pacemaker with right atrial lead. Lungs and pleura: Right lung airspace opacity. Left lung airspace opacity seen on prior CT is not well appreciated. There is emphysematous change. No significant pleural effusions. No pneumothorax. Mediastinum: Mediastinal contours appear similar. There is asymmetric elevation of the right hemidiaphragm which is more pronounced. Heart size is within normal limits. Bones and chest wall: No suspicious bony lesions. Overlying soft tissues appear unremarkable. IMPRESSION: Right lung airspace opacity is suspicious for pneumonia. Suspect right lung volume loss. Previously seen left lower lobe airspace opacity on prior CT is not well appreciated. Dictated by: Rafael Dooley M.D. on 09/24/2021 at 10:01 Approved by: Rafael Dooley M.D. on 09/24/2021 at 10:05
--- NOTE | 2021-09-24 10:12 | ED_ITS ---
HPI - Neuro Symptoms/Deficit General Chief Complaint: Neuro Symptoms/Deficit Stated Complaint: Stroke Time Seen by Provider: 09/24/21 10:09 Source: patient and family (His ) Mode of arrival: Ambulatory Limitations: no limitations History of Present Illness HPI Narrative: The patient arrives by EMS with a potential stroke. When he awoke this morning, his noticed a left facial droop. Regarding a potential stroke, he was well when he went to bed. Paramedics noted left facial droop. Upon arrival he is alert. He is very hard of hearing. At time see answers questions, and obeys commands. Not always. At times he seems confused. He was seen here 5 days ago after a fall. He is not anticoagulated. Head CT was benign. Has COPD, he was also seen recently with chest discomfort. No acute cardiac issues were discovered at that time. He also has adenocarcinoma of the lung. Upon repeat turning today, he has a wet cough. He has no obvious fever. He has multiple areas of pain, including chest pain, from the recent fall. Multiple bruises noted on his ribs, in his abdomen he has no complaints of nausea vomiting, he has no restriction of motion in his extremities. On Anticoagulants: No Related Data Home Medications Medication Instructions Recorded Confirmed fluticasone furoate 200 1 inh INHALATION DAILY 11/03/20 09/12/21 mcg-vilanterol 25 mcg/dose inhalation powder (Breo Ellipta) lidocaine 4 % topical patch 1 patch TOPICAL DAILY PRN 11/03/20 09/12/21 (Blue-Emu Lidocaine Patch) magnesium 250 mg tablet 250 mg PO DAILY 12/02/20 09/12/21 aspirin 81 mg chewable tablet 81 mg PO DAILY tab 06/17/21 09/12/21 omeprazole 20 mg capsule,delayed 20 mg PO DAILY cap 06/17/21 09/12/21 release Previous Rx's Medication Instructions Recorded multivitamin (Tab-A-Iqra) 1 tab PO DAILY #30 tab 09/14/19 thiamine HCl (vitamin B1) 100 mg 100 mg PO DAILY #30 tab 09/14/19 tablet (Vitamin B-1) fluticasone furoate 200 1 inh INHALATION DAILY #60 each 03/16/21 mcg-vilanterol 25 mcg/dose inhalation powder albuterol sulfate 90 mcg/actuation See Rx Instructions .ROUTE 03/25/21 aerosol inhaler (Ventolin HFA) .COMPLEX #18 gram umeclidinium 62.5 mcg/actuation See Rx Instructions .ROUTE 04/14/21 blister powder for inhalation .COMPLEX #30 ea (Incruse Ellipta) amlodipine 5 mg tablet See Rx Instructions .ROUTE 07/18/21 .COMPLEX #180 tab rosuvastatin 5 mg tablet See Rx Instructions .ROUTE 08/26/21 .COMPLEX #90 tab Allergies Allergy/AdvReac Type Severity Reaction Status Date / Time No Known Drug Allergies Allergy Unknown Verified 06/17/21 12:56 Review of Systems Constitutional Constitutional: Reports system reviewed and no additional complaints, except as documented and Denies frequent falls Eyes Eyes: Denies blurry vision and Denies change in vision ENT Ears, Nose, Mouth, and Throat: Denies dizziness, Denies neck pain, Denies sinus pressure and Denies sore throat Comments: Hard of hearing Cardiovascular Cardiovascular: Denies chest pain and Denies rapid heart rate Respiratory Respiratory: Reports cough and Reports wheezing Musculoskeletal Musculoskeletal: Denies neck pain Integumentary/Breasts Comments: Multiple contusions. No open injuries. Neurologic Neurologic: Reports confusion, Denies dizziness and Denies frequent falls Psychiatric Psychiatric: Reports confusion Hematologic/Lymphatic On Anticoagulants: No Allergic/Immunologic Allergic/Immunologic: Reports wheezing Patient History Medical History Adenocarcinoma of right lung, stage 1 (~05/10/20) Anemia Benign prostatic hyperplasia (01/29/12) BPH w urinary obs/LUTS Bradycardia Cellulitis Centrilobular emphysema (12/13/16) Cholesteatoma (09/10/12) Chronic kidney disease (CKD) stage G3a/A1, moderately decreased glomerular filtration rate (GFR) between 45-59 mL/min/1.73 square meter and albuminuria creatinine ratio less than 30 mg/g COPD (chronic obstructive pulmonary disease) DNR (do not resuscitate) Hemorrhagic cerebrovascular accident (CVA) (~2006) Hydronephrosis, left Hyperlipidemia Hypertension Lower urinary tract symptoms (LUTS) Lung cancer Macrocytic anemia (07/06/16) Mild alcohol abuse (03/26/15) Olecranon bursitis Peripheral vascular disease of foot (05/31/17) Pneumonia Primary adenocarcinoma of upper lobe of right lung Sinusitis Stenosis of left femoral artery Stroke Substance abuse Syncope Syncope and collapse (09/10/12) Tobacco use disorder, continuous (09/10/12) Transient cerebral ischemia (04/23/12) Traumatic compression fracture of seventh thoracic vertebra, sequela (10/09/16) Tubular adenoma Urinary retention Surgical History History of carpal tunnel repair (03/02/15) History of cataract removal with insertion of prosthetic lens (02/16/15) History of cataract removal with insertion of prosthetic lens (03/09/15) History of tonsillectomy Status post appendectomy Status post colonoscopy (10/06/09) Status post lobectomy of lung (~04/2020) Status post repair of hydrocele (05/22/11) Family History Brother Lung cancer Father Lung cancer Mother Migraines Social History marital status: number of children: 2 household members: spouse Smoking Status: Current every day smoker Tobacco: How many years used: 69 quit status: considering quitting alcohol intake: current caffeine: Yes Smoking Status: Current every day smoker alcohol intake frequency: 3 or more drinks per day Substance Use Type: does not use Exam Initial Vital Signs Initial Vital Signs: Vital Signs Pulse Rate 76 09/24/21 10:23 Respiratory Rate 35 H 09/24/21 10:23 Blood Pressure 135/77 09/24/21 10:23 Pulse Oximetry 90 L 09/24/21 10:23 Const General: cooperative, in distress, anxious and disheveled Nutritional Appearance: malnourished Limitations: behavioral limitations [facility] Head: normal to inspection, normocephalic and atraumatic Ears: TM's normal bilaterally Nose: external nose normal Face and sinus: normal facial exam Mouth: oral mucosae normal Throat: posterior oropharynx normal Eyes General: appearance normal, both eyes and all related structures Neck Neck: No JVD Chest Chest: normal inspection of the chest Resp Other: Decreased breath sounds throughout. By hilar rales. Cardio Rate: regular rate Rhythm: regular rhythm Heart Sounds: S1 normal, S2 normal, no click, no murmurs and no rubs GI Inspection: normal to inspection Palpation: soft, No guarding and No mass Auscultation: normal bowel sounds Testes: normal Back/Spine/Pelvis Back: back tenderness (Tenderness across posterior ribs. No crepitus. Contusions are noted.) Skin Other: Multiple contusions across his ribs and abdomen. Neuro General: patient alert, patient awake, patient oriented x3, no focal motor deficits and CN's II-XI intact bilaterally Sensory Exam: no sensory deficits noted Extrem General: normal to inspection, full ROM, no pedal edema and no calf tenderness Psych Appearance: disheveled Other: He is hard of hearing. His responses are intermittent, his comments are intermittent. NIHSS is hard to evaluate because of his difficulty in complying. Course Course Course Narrative: The patient's head CT shows no acute findings. Chest X-ray is consistent with bilateral infiltrates, as well as COPD. He is started on Rocephin and Zithromax. Due tothe recent trauma in themultiple bruises present, a noncont rast CT was obtained of the chest, abdomen pelvis. The CT revealed a right middle lobe infiltrate. Severe COPD is noted. There are acute right rib fractures posterior/lateral on right 10th and 11th ribs and posterior right 12th rib fracture. There are right L1- L3 right transverse process fractures. There are no acute abdomen pelvis findings on the CT. In addition to Rocephin and Zithromax for pneumonia, he was given DuoNeb, and Solu-Medrol for COPD. The initial confusion is unclear. He definitely had difficulty communicating with me. He has COPD with pneumonia, perhaps this is enough to account for his poor communication. There is lessened suspicion of CVA. NIHSS score is unclear, there is no left facial droop at this time. He is not a tPA candidate based upon the NIHSS, as well as the multiple injuries. The case is discussed with the hospitalist, Dr. Stewart. The patient will be admitted for COPD, pneumonia, and pain management with the multiple fractures. The patient's speaks for him due to his deafness and difficulty communicating. She has no living will. She clearly states he should be DNR/DNI. Orders Ordered: ED Orders 09/24/21 10:00 Basic Metabolic Panel Stat Complete Blood Count AUTO DIFF Stat PT [Prothrombin Time INR] Stat PTT [Partial Thromboplastin Time] Stat 09/24/21 10:07 BNP [NT-proBNP (BNP-Adult 18+)] Stat Lactate (Lactic Acid) Stat Procalcitonin Stat Troponin & CK Cardiac Panel Stat 09/24/21 10:10 EKG-12 Lead Stat 09/24/21 10:11 CXR [XR chest 1V] Stat 09/24/21 10:28 Blood Culture Stat 09/24/21 10:48 Type and Screen Stat 09/24/21 10:50 Urinalysis and Microscopic Stat 09/24/21 10:57 COVID19 -Nasal swab/Pre-Proc Stat Sputum Culture Stat 09/24/21 11:13 CT chest abd pel wo con Stat Sodium Chloride (Normal Saline 0.9%) 1,000 mls @ 150 mls/hr IV CONT RONNA Last Admin: 09/24/21 10:55 Dose: 150 mls/hr Documented by: HIMANSHU Discontinued Medications Albuterol/Ipratropium (Albuterol/Ipratropium 3 Ml Ampul) 3 ml INH NOW ONE Stop: 09/24/21 10:29 Last Admin: 09/24/21 12:15 Dose: 3 ml Documented by: LUIZ Ceftriaxone Sodium 1,000 mg/ (Sodium Chloride) 100 mls @ 200 mls/hr IV NOW ONE Stop: 09/24/21 11:34 Last Infusion: 09/24/21 12:19 Dose: 0 mls/hr Documented by: Admin: 09/24/21 11:49 Dose: 200 mls/hr Documented by: HIMANSHU Azithromycin 500 mg/ Dextrose 250 mls @ 250 mls/hr IV NOW ONE Stop: 09/24/21 11:34 Last Infusion: 09/24/21 13:55 Dose: 0 mls/hr Documented by: Admin: 09/24/21 12:52 Dose: 250 mls/hr Documented by: YULIET Methylprednisolone (Methylprednisolone 125 Mg/2 Ml Vial) 125 mg IV NOW ONE Stop: 09/24/21 12:56 Last Admin: 09/24/21 13:12 Dose: 125 mg Documented by: YULIET Vital Signs Vital signs: Vital Signs - 8 hr 09/24/21 10:23 09/24/21 10:30 09/24/21 10:31 Temperature Pulse Rate 76 70 79 Respiratory Rate 35 H 27 H 29 H Blood Pressure 135/77 115/72 Pulse Oximetry 90 L 86 L 81 L 09/24/21 10:35 09/24/21 10:45 09/24/21 10:56 Temperature 98.9 F 98.1 F Pulse Rate 72 75 Respiratory Rate 28 H 24 20 Blood Pressure 124/71 Pulse Oximetry 100 93 90 L 09/24/21 11:00 09/24/21 11:15 09/24/21 11:20 Temperature 98.6 F 98.6 F Pulse Rate 66 69 69 Respiratory Rate 21 16 20 Blood Pressure 113/73 113/73 Pulse Oximetry 88 L 98 96 09/24/21 11:30 09/24/21 11:31 09/24/21 11:45 Temperature 98.6 F 98.6 F 98.8 F Pulse Rate 67 68 71 Respiratory Rate 20 21 22 Blood Pressure 139/61 Pulse Oximetry 96 96 96 09/24/21 12:00 09/24/21 12:15 09/24/21 12:22 Temperature 99.0 F 99.0 F Pulse Rate 70 71 70 Respiratory Rate 21 22 20 Blood Pressure 138/59 L Pulse Oximetry 97 97 96 09/24/21 12:30 09/24/21 12:45 09/24/21 13:00 Temperature 99.0 F 99.1 F Pulse Rate 73 68 69 Respiratory Rate 21 24 22 Blood Pressure Pulse Oximetry 96 98 96 MDM - Neuro Symptoms/Deficit Lab Data Result diagrams: 09/24/21 10:00 09/24/21 10:00 Labs: Lab Results 09/24/21 09/24/21 09/24/21 Range/Units 10:00 10:00 10:00 WBC 24.6 H (4.5-11.0) X10^3/uL RBC 2.41 L (4.5-5.9) X10^6/uL Hgb 8.6 L (13.5-17.5) g/dL Hct 25.8 L (41-53) % MCV 107.0 H (80-100) fL MCH 35.8 H (26-34) PG MCHC 33.4 (30-36) % RDW 18.3 H (11.6-14.8) % Plt Count 171 (150-400) X10^3/uL Neut % (Auto) 90.7 H (50-75) % Lymph % (Auto) 2.5 L (25-40) % [place] % (Auto) 6.5 (3-14) % Eos % (Auto) 0.1 L (2-4) % Baso % (Auto) 0.2 (0-2) % Neut # (Auto) 53694 H (7830-4810) /uL Lymph # (Auto) 600 L (7907-0962) /uL [place] # (Auto) 1600 H (0-900) /uL Eos # (Auto) 0 (0-450) /uL Baso # (Auto) 0 (0-100) /uL PT 10.9 (10.1-12.7) SECONDS INR 1.0 (0.9-1.3) APTT 45 H (26.4-36.2) SECONDS Sodium 143 (137-145) mmol/L Potassium 5.4 H (3.4-5.1) mmol/L Chloride 106 (98-107) mmol/L Carbon Dioxide 31 (22-32) mmol/L BUN 59 H (9-20) mg/dL Creatinine 2.57 H (0.66-1.25) mg/dL Estimated GFR 24.0 L (>60) mL/min BUN/Creatinine Ratio 23.0 H (6-22) Glucose 79 L (80-110) mg/dL Lactate (0.7-2.1) mmol/L Calcium 10.0 (8.4-10.2) mg/dL Total Creatine Kinase (55-170) U/L CK-MB (CK-2) (<2.37) ng/mL CK-MB (CK-2) Rel Index (1.5-5.0) % Troponin I (0.01-0.034) ng/mL NT-Pro-B Natriuret Pep (<450) pg/mL Procalcitonin (<0.5) ng/mL Urine Color Urine Appearance Urine pH (4.5-8.0) Ur Specific [place] (1.000-1.035) Urine Protein (Negative) Urine Glucose (UA) (Negative) g/dL Urine Ketones (NEGATIVE) Urine Occult Blood (Negative) Urine Nitrate (Negative) Urine Bilirubin (NEGATIVE) Urine Urobilinogen (0.2) E.U./dL Ur Leukocyte Esterase (NEGATIVE) Urine RBC (0-5/HPF) Urine WBC (0-5/HPF) Amorphous Sediment Urine Bacteria (None) Ur Culture Indicated? SARS-CoV-2 (PCR) (Negative) Blood Type Antibody Screen 09/24/21 09/24/21 09/24/21 Range/Units 10:07 10:07 10:07 WBC (4.5-11.0) X10^3/uL RBC (4.5-5.9) X10^6/uL Hgb (13.5-17.5) g/dL Hct (41-53) % MCV (80-100) fL MCH (26-34) PG MCHC (30-36) % RDW (11.6-14.8) % Plt Count (150-400) X10^3/uL Neut % (Auto) (50-75) % Lymph % (Auto) (25-40) % [place] % (Auto) (3-14) % Eos % (Auto) (2-4) % Baso % (Auto) (0-2) % Neut # (Auto) (3864-8279) /uL Lymph # (Auto) (8705-0903) /uL [place] # (Auto) (0-900) /uL Eos # (Auto) (0-450) /uL Baso # (Auto) (0-100) /uL PT (10.1-12.7) SECONDS INR (0.9-1.3) APTT (26.4-36.2) SECONDS Sodium (137-145) mmol/L Potassium (3.4-5.1) mmol/L Chloride (98-107) mmol/L Carbon Dioxide (22-32) mmol/L BUN (9-20) mg/dL Creatinine (0.66-1.25) mg/dL Estimated GFR (>60) mL/min BUN/Creatinine Ratio (6-22) Glucose (80-110) mg/dL Lactate 1.4 (0.7-2.1) mmol/L Calcium (8.4-10.2) mg/dL Total Creatine Kinase 156 (55-170) U/L CK-MB (CK-2) 8.91 H (<2.37) ng/mL CK-MB (CK-2) Rel Index 5.7 H (1.5-5.0) % Troponin I < 0.012 (0.01-0.034) ng/mL NT-Pro-B Natriuret Pep 902 H (<450) pg/mL Procalcitonin (<0.5) ng/mL Urine Color Urine Appearance Urine pH (4.5-8.0) Ur Specific [place] (1.000-1.035) Urine Protein (Negative) Urine Glucose (UA) (Negative) g/dL Urine Ketones (NEGATIVE) Urine Occult Blood (Negative) Urine Nitrate (Negative) Urine Bilirubin (NEGATIVE) Urine Urobilinogen (0.2) E.U./dL Ur Leukocyte Esterase (NEGATIVE) Urine RBC (0-5/HPF) Urine WBC (0-5/HPF) Amorphous Sediment Urine Bacteria (None) Ur Culture Indicated? SARS-CoV-2 (PCR) (Negative) Blood Type Antibody Screen 09/24/21 09/24/21 09/24/21 Range/Units 10:07 10:48 10:50 WBC (4.5-11.0) X10^3/uL RBC (4.5-5.9) X10^6/uL Hgb (13.5-17.5) g/dL Hct (41-53) % MCV (80-100) fL MCH (26-34) PG MCHC (30-36) % RDW (11.6-14.8) % Plt Count (150-400) X10^3/uL Neut % (Auto) (50-75) % Lymph % (Auto) (25-40) % [place] % (Auto) (3-14) % Eos % (Auto) (2-4) % Baso % (Auto) (0-2) % Neut # (Auto) (3932-4579) /uL Lymph # (Auto) (3949-6803) /uL [place] # (Auto) (0-900) /uL Eos # (Auto) (0-450) /uL Baso # (Auto) (0-100) /uL PT (10.1-12.7) SECONDS INR (0.9-1.3) APTT (26.4-36.2) SECONDS Sodium (137-145) mmol/L Potassium (3.4-5.1) mmol/L Chloride (98-107) mmol/L Carbon Dioxide (22-32) mmol/L BUN (9-20) mg/dL Creatinine (0.66-1.25) mg/dL Estimated GFR (>60) mL/min BUN/Creatinine Ratio (6-22) Glucose (80-110) mg/dL Lactate (0.7-2.1) mmol/L Calcium (8.4-10.2) mg/dL Total Creatine Kinase (55-170) U/L CK-MB (CK-2) (<2.37) ng/mL CK-MB (CK-2) Rel Index (1.5-5.0) % Troponin I (0.01-0.034) ng/mL NT-Pro-B Natriuret Pep (<450) pg/mL Procalcitonin 0.44 (<0.5) ng/mL Urine Color Yellow Urine Appearance Clear Urine pH 6.5 (4.5-8.0) Ur Specific [place] 1.010 (1.000-1.035) Urine Protein 2+ H (Negative) Urine Glucose (UA) Negative (Negative) g/dL Urine Ketones Negative (NEGATIVE) Urine Occult Blood Trace-lysed (Negative) Urine Nitrate Negative (Negative) Urine Bilirubin Negative (NEGATIVE) Urine Urobilinogen 0.2 (0.2) E.U./dL Ur Leukocyte Esterase Negative (NEGATIVE) Urine RBC None seen (0-5/HPF) Urine WBC None seen (0-5/HPF) Amorphous Sediment 1+ Urine Bacteria None seen (None) Ur Culture Indicated? Cult not indicated SARS-CoV-2 (PCR) (Negative) Blood Type O Positive Antibody Screen Negative 09/24/21 Range/Units 10:57 WBC (4.5-11.0) X10^3/uL RBC (4.5-5.9) X10^6/uL Hgb (13.5-17.5) g/dL Hct (41-53) % MCV (80-100) fL MCH (26-34) PG MCHC (30-36) % RDW (11.6-14.8) % Plt Count (150-400) X10^3/uL Neut % (Auto) (50-75) % Lymph % (Auto) (25-40) % [place] % (Auto) (3-14) % Eos % (Auto) (2-4) % Baso % (Auto) (0-2) % Neut # (Auto) (8580-8937) /uL Lymph # (Auto) (8899-3298) /uL [place] # (Auto) (0-900) /uL Eos # (Auto) (0-450) /uL Baso # (Auto) (0-100) /uL PT (10.1-12.7) SECONDS INR (0.9-1.3) APTT (26.4-36.2) SECONDS Sodium (137-145) mmol/L Potassium (3.4-5.1) mmol/L Chloride (98-107) mmol/L Carbon Dioxide (22-32) mmol/L BUN (9-20) mg/dL Creatinine (0.66-1.25) mg/dL Estimated GFR (>60) mL/min BUN/Creatinine Ratio (6-22) Glucose (80-110) mg/dL Lactate (0.7-2.1) mmol/L Calcium (8.4-10.2) mg/dL Total Creatine Kinase (55-170) U/L CK-MB (CK-2) (<2.37) ng/mL CK-MB (CK-2) Rel Index (1.5-5.0) % Troponin I (0.01-0.034) ng/mL NT-Pro-B Natriuret Pep (<450) pg/mL Procalcitonin (<0.5) ng/mL Urine Color Urine Appearance Urine pH (4.5-8.0) Ur Specific [place] (1.000-1.035) Urine Protein (Negative) Urine Glucose (UA) (Negative) g/dL Urine Ketones (NEGATIVE) Urine Occult Blood (Negative) Urine Nitrate (Negative) Urine Bilirubin (NEGATIVE) Urine Urobilinogen (0.2) E.U./dL Ur Leukocyte Esterase (NEGATIVE) Urine RBC (0-5/HPF) Urine WBC (0-5/HPF) Amorphous Sediment Urine Bacteria (None) Ur Culture Indicated? SARS-CoV-2 (PCR) Negative (Negative) Blood Type Antibody Screen Point of Care Testing Glucose POC 99 Imaging Data Chest x-ray: Radiologist's Impression: Right lung infiltrate. COPD. CT chest/abdomen/pelvis.: Radiologist's Impression: Severe COPD. RML infiltrate. Multiple right rib and lateral process fractures. ECG Data Attestation: I personally reviewed and interpreted this ECG as follows: (Normal sinus rhythm rate 69 beats per minute. First-degree AV block. Minimal criteria for LVH. No ectopy. No acute ST T wave changes.) Critical Care Time Critical Care Time Critical Care Time: Yes Total Critical Care Time: 70 Attestation: Time included initial assessment patient, review of medical records, review of Radiology, cardiac monitoring, and lab data. Time included is vision making. Time included multiple discussions with the patient, his , in the admitting physician. Discharge Plan Departure Patient Disposition: Admitted As Inpatient Clinical Impression: RML pneumonia, COPD (chronic obstructive pulmonary disease), Multiple fractures of ribs, Fracture of lumbar spine without cord injury, DNR (do not resuscitate) Admit Date/Time: 09/24/21 14:58 Admit Provider: Daniele Goodrich
[2021-09-24 10:21] LABS: Add Manual Diff / Slide Review NO; Basophils Absolute Auto 0 /uL (0-100); Basophils Percent Auto 0.2 % (0-2); Eosinophils Absolute Auto 0 /uL (0-450); Eosinophils Percent Auto 0.1 % (2-4); Hematocrit 25.8 % (41-53); Hemoglobin 8.6 g/dL (13.5-17.5); Lymphocytes Absolute Auto 600 /uL (1100-4500); Lymphocytes Percent Auto 2.5 % (25-40); Mean Corpuscular HGB Conc 33.4 % (30-36); Mean Corpuscular Hemoglobin 35.8 PG (26-34); Monocytes Absolute Auto 1600 /uL (0-900); Monocytes Percent Auto 6.5 % (3-14); Neutrophils Absolute Auto 22300 /uL (1500-7000); Neutrophils Percent Auto 90.7 % (50-75); Platelet Count 171 X10^3/uL (150-400); Red Blood Cell Count 2.41 X10^6/uL (4.5-5.9); Red Cell Distribution Width 18.3 % (11.6-14.8); White Blood Cell Count 24.6 X10^3/uL (4.5-11.0)
[2021-09-24 10:24] LABS: Blood Urea Nitrogen 59 mg/dL (9-20); Carbon Dioxide 31 mmol/L (22-32); Chloride 106 mmol/L (98-107); Glucose 79 mg/dL (80-110); HEMOLYSIS < 15 (0-50); Sodium 143 mmol/L (137-145)
[2021-09-24 10:28] LABS: Potassium 5.4 mmol/L (3.4-5.1)
[2021-09-24 10:45] LABS: Creatine Kinase 156 U/L (55-170); Lactate (Lactic Acid) 1.4 mmol/L (0.7-2.1)
[2021-09-24] MEDS: SODIUM CHLORIDE 0.9% 1,000 ML 150 ML IV (10:55)
[2021-09-24 10:58] LABS: Troponin I < 0.012 ng/mL (0.01-0.034)
[2021-09-24 11:01] LABS: CKMB % Relative Index 5.7 % (1.5-5.0); Creatine Kinase MB 8.91 ng/mL (<2.37)
[2021-09-24 11:03] LABS: Procalcitonin 0.44 ng/mL (<0.5)
[2021-09-24 11:07] LABS: NT-proBNP (BNP-Adult 18+) 902 pg/mL (<450)
[2021-09-24 11:13] LABS: Prothrombin Time 10.9 SECONDS (10.1-12.7)
--- NOTE | 2021-09-24 11:13 | DI.CT.S_ITS ---
PROCEDURE: CT CHEST ABD PEL WO CON INDICATIONS: trauma, resp distress TECHNIQUE: After the administration of oral contrast, 5 mm thick sections acquired from the lung apices to the symphysis pubis. 5 mm thick coronal and sagittal reformats acquired, with additional 7 mm coronal MIP reformats through the lungs. For radiation dose reduction, the following was used: automated exposure control, adjustment of mA and/or kV according to patient size. COMPARISON: [facility], CR, XR CHEST 1V, 09/24/2021, 10:38. [facility], CT, CT CHEST WO CON, 02/28/2021, 6:43. FINDINGS: Image quality: Good. Evaluation of the solid parenchymal organs is limited without IV contrast. CHEST: Lungs and pleura: Severe emphysematous change. Suture material in the right upper lobe. There is patchy airspace opacity in the right lung. Minimal opacity in the left lower lobe. No acute pulmonary opacities. Central airways are clear. There are areas of distal mucus airway plugging. There is bronchial wall thickening. No pleural effusions or pneumothorax. Mediastinum: Heart size is normal. Three-vessel coronary artery calcifications. No pericardial effusion. Right paratracheal node measuring 1.4 cm, (2/24), previously 1.3 cm. Thoracic aorta and central pulmonary arteries are normal in size. Esophagus is normal in caliber. No hiatal hernia. Chest wall: Left pacemaker. Right atrial lead. No axillary or supraclavicular adenopathy by size criteria. Thyroid gland is unremarkable. ABDOMEN: Solid organs: Liver is normal in size. Gallbladder is unremarkable. Pancreas is normal in contours. Spleen is normal in size. No adrenal nodules. Both kidneys are normal in size, without hydronephrosis or nephrolithiasis. Left peripelvic cyst measuring 5.1 cm. Left kidney superior pole exophytic low-density cyst. Peritoneum and bowel: Small and large bowel loops are normal in caliber and wall thickness. No free fluid or air. Nodes and vessels: No retroperitoneal or mesenteric adenopathy by size criteria. Aorta and inferior vena cava are normal in size. Circumferential calcified atherosclerotic plaque. Miscellaneous: No ventral hernias. PELVIS: Genitourinary: Blanco catheter is in place. Bladder is only partially decompressed. Small foci of air in the urinary bladder. Prostatomegaly. Miscellaneous: No inguinal hernias or adenopathy. Bones: No suspicious bony lesions. Right posterior 10th and 11th rib fractures, new. Remote right anterior lateral 4th rib fracture. Right posterior 12th rib fracture. Right L1-L3 transverse process fractures. Minimal scoliosis. Multilevel DDD. IMPRESSION: 1. New patchy airspace opacity most pronounced in the right lung. This is suspicious for pneumonia or aspiration. 2. There are a few areas of distal mucus airway plugging. 3. Severe emphysematous change. 4. No pneumothorax. No pleural effusion. 5. Acute right 10th and 11th posterior lateral rib fractures. Posterior 12th rib fracture. Right L1-L3 transverse process fractures. 6. No free fluid is identified in the abdomen or pelvis. No pneumoperitoneum. Evaluation of the solid parenchymal organs is limited without IV contrast. Dictated by: Rafael Dooley M.D. on 09/24/2021 at 11:46 Approved by: Rafael Dooley M.D. on 09/24/2021 at 12:07
[2021-09-24 11:16] LABS: PTT Partial Thromboplastin Tim 45 SECONDS (26.4-36.2)
[2021-09-24 11:44] LABS: COVID19 -Nasal RAPID Negative (Negative)
[2021-09-24] MEDS: cefTRIAXone 1,000 MG in SODIUM CHLORIDE 0.9% 100 ML 200 ML IV (11:49)
[2021-09-24 11:50] LABS: Appearance Urine UA CLEAR; Bilirubin Urine UA NEGATIVE (NEGATIVE); Color Urine UA YELLOW; Glucose Urine UA NEGATIVE (Negative); Ketones Urine UA NEGATIVE (NEGATIVE); Leukocyte Esterase Urine UA NEGATIVE (NEGATIVE); Nitrite Urine UA NEGATIVE (Negative); Occult Blood Urine UA TRACE-LYSED (Negative); Protein Urine UA 2+ (Negative); Urobilinogen Urine UA 0.2 E.U./dL (0.2); pH Urine UA 6.5 (4.5-8.0)
[2021-09-24 12:01] LABS: Amorphous Sediment Urine 1+; Bacteria Urine None Seen; Culture Indicated Urine Cult Not Indicated; RBC Urine None Seen (0-5/HPF); WBC Urine None Seen (0-5/HPF)
[2021-09-24] MEDS: ALBUTEROL/IPRATROPIUM 3 ML AMPUL INH (12:15)
[2021-09-24] MEDS: AZITHROMYCIN 500 MG in DEXTROSE 5% IN WATER 250 ML IV (12:52)
[2021-09-24] MEDS: methylPREDNISolone 125 MG/2 ML VIAL IV (13:12)
--- NOTE | 2021-09-24 14:02 | RT ---
Responded to code stroke, pt airway patent and no distress noted. pt on 6lpm nc, and pt nts for mod thick pale yellow secretions without incident. Sputum culture collected without incident labled and sent by Nilton Price
--- NOTE | 2021-09-24 16:08 | PM.HP.1 ---
History of Present Illness History of Present Illness Date Patient Seen: 09/24/21 Time Patient Seen: 16:09 Date of Onset of Symptoms: 09/24/21 Chief complaint: Stroke Narrative: This is an 84-year-old male with COPD, lung cancer, chronic kidney disease, esophagitis and severe hearing loss who fell at home fracturing ribs 11 and 12 on the right side with resultant pneumonia and hypoxia. When he presented to the emergency department he was initially saturating in the low 90s but subsequently dropped to the 70s and is now needing high-flow nasal cannula oxygen supplementation. He is DNR/DNI. He describes the episode occurring when he was trying to load something onto his truck while standing on several milk crates. He fell against the plastic milk crates lacerating his head and injuring his right chest about 5 days ago. He went to see his primary care the following day and had a workup done that initially showed no fracture. His brought him in today because his face appeared to be drooping, he was more confused and he was unable to cough up his usual phlegm due to the pain. He is exceedingly hard of hearing and is challenged to follow any amount of directions with the stroke exam being far beyond anything he can communicate about. His chest x-ray shows bilateral infiltrates with right-sided pneumonia. On CT scan he reportedly has acute right rib fractures posterior/lateral on right 10th and 11th ribs and posterior right 12th rib fracture.? There are right L1- L3 right transverse process fractures. (Written report not present in the EMR.) The white blood count is 24.6 with a hemoglobin of 8.6. No brain injury or bleed seen on Brain CT. Patient History Medical History Adenocarcinoma of right lung, stage 1 (~05/10/20) Anemia Benign prostatic hyperplasia (01/29/12) BPH w urinary obs/LUTS Bradycardia Cellulitis Centrilobular emphysema (12/13/16) Cholesteatoma (09/10/12) Chronic kidney disease (CKD) stage G3a/A1, moderately decreased glomerular filtration rate (GFR) between 45-59 mL/min/1.73 square meter and albuminuria creatinine ratio less than 30 mg/g COPD (chronic obstructive pulmonary disease) DNR (do not resuscitate) Hemorrhagic cerebrovascular accident (CVA) (~2006) Hydronephrosis, left Hyperlipidemia Hypertension Lower urinary tract symptoms (LUTS) Lung cancer Macrocytic anemia (07/06/16) Mild alcohol abuse (03/26/15) Olecranon bursitis Peripheral vascular disease of foot (05/31/17) Pneumonia Primary adenocarcinoma of upper lobe of right lung Sinusitis Stenosis of left femoral artery Stroke Substance abuse Syncope Syncope and collapse (09/10/12) Tobacco use disorder, continuous (09/10/12) Transient cerebral ischemia (04/23/12) Traumatic compression fracture of seventh thoracic vertebra, sequela (10/09/16) Tubular adenoma Urinary retention Surgical History History of carpal tunnel repair (03/02/15) History of cataract removal with insertion of prosthetic lens (02/16/15) History of cataract removal with insertion of prosthetic lens (03/09/15) History of tonsillectomy Status post appendectomy Status post colonoscopy (10/06/09) Status post lobectomy of lung (~04/2020) Status post repair of hydrocele (05/22/11) Family & Social History Family History Brother Lung cancer Father Lung cancer Mother Migraines Social History: household members spouse Tobacco & Substance use: Tobacco type cigarettes Smoking Status Current every day smoker alcohol intake current alcohol intake frequency 3 or more drinks per day Substance Use Type does not use Meds Home Medications and Allergies Home Medications Medication Instructions Recorded Confirmed Type multivitamin (Tab-A-Iqra) 1 tab PO DAILY #30 tab 09/14/19 09/24/21 Rx thiamine HCl (vitamin B1) 100 mg 100 mg PO DAILY #30 tab 09/14/19 09/24/21 Rx tablet (Vitamin B-1) fluticasone furoate 200 1 inh INHALATION DAILY 11/03/20 09/24/21 History mcg-vilanterol 25 mcg/dose inhalation powder (Breo Ellipta) lidocaine 4 % topical patch 1 patch TOPICAL DAILY PRN 11/03/20 09/24/21 History (Blue-Emu Lidocaine Patch) magnesium 250 mg tablet 250 mg PO DAILY 12/02/20 09/24/21 History fluticasone furoate 200 1 inh INHALATION DAILY #60 each 03/16/21 09/24/21 Rx mcg-vilanterol 25 mcg/dose inhalation powder albuterol sulfate 90 mcg/actuation See Rx Instructions .ROUTE 03/25/21 09/24/21 Rx aerosol inhaler (Ventolin HFA) .COMPLEX #18 gram umeclidinium 62.5 mcg/actuation See Rx Instructions .ROUTE 04/14/21 09/24/21 Rx blister powder for inhalation .COMPLEX #30 ea (Incruse Ellipta) aspirin 81 mg chewable tablet 81 mg PO DAILY tab 06/17/21 09/24/21 History omeprazole 20 mg capsule,delayed 20 mg PO DAILY cap 06/17/21 09/24/21 History release amlodipine 5 mg tablet See Rx Instructions .ROUTE 07/18/21 09/24/21 Rx .COMPLEX #180 tab rosuvastatin 5 mg tablet See Rx Instructions .ROUTE 08/26/21 09/24/21 Rx .COMPLEX #90 tab Allergies Allergy/AdvReac Type Severity Reaction Status Date / Time No Known Drug Allergies Allergy Unknown Verified 06/17/21 12:56 Review of Systems Review of Systems Narrative: Positive for hearing loss, shortness of breath, chest pain, weakness. Negative for fevers, chills, sweats, coughing, headache, seizures, rash, bleeding, abdominal pain, vomiting, diarrhea, dysuria, new allergies. Exam Vital Signs (past 8 hours): - 09/24/21 10:23 09/24/21 10:30 09/24/21 10:31 Temperature Pulse Rate 76 70 79 Respiratory Rate 35 H 27 H 29 H Blood Pressure 135/77 115/72 Pulse Oximetry 90 L 86 L 81 L 09/24/21 10:35 09/24/21 10:45 09/24/21 10:56 Temperature 98.9 F 98.1 F Pulse Rate 72 75 Respiratory Rate 28 H 24 20 Blood Pressure 124/71 Pulse Oximetry 100 93 90 L 09/24/21 11:00 09/24/21 11:15 09/24/21 11:20 Temperature 98.6 F 98.6 F Pulse Rate 66 69 69 Respiratory Rate 21 16 20 Blood Pressure 113/73 113/73 Pulse Oximetry 88 L 98 96 09/24/21 11:30 09/24/21 11:31 09/24/21 11:45 Temperature 98.6 F 98.6 F 98.8 F Pulse Rate 67 68 71 Respiratory Rate 20 21 22 Blood Pressure 139/61 Pulse Oximetry 96 96 96 09/24/21 12:00 09/24/21 12:15 09/24/21 12:22 Temperature 99.0 F 99.0 F Pulse Rate 70 71 70 Respiratory Rate 21 22 20 Blood Pressure 138/59 L Pulse Oximetry 97 97 96 09/24/21 12:30 09/24/21 12:45 09/24/21 13:00 Temperature 99.0 F 99.1 F Pulse Rate 73 68 69 Respiratory Rate 21 24 22 Blood Pressure Pulse Oximetry 96 98 96 09/24/21 15:23 Temperature Pulse Rate Respiratory Rate 20 Blood Pressure Pulse Oximetry 95 Fraction of Inspired Oxygen 30 Oxygen Delivery Method Heated High Flow Oxygen Flow Rate 40 Narrative Exam Narrative: The patient is alert. His orientation is difficult to ascertain as he is very hard of hearing and is also very avoidant participating in interactions. He reportedly at times is able to interact normally and move all extremities and at other times seems to avoid interacting/answering questions/trying to hear. No apparent distress Pupils cannot be accurately examine but appear to be equally symmetric Sclerae are pink and nonicteric Extraocular muscles appear to be working normally but he does not cooperate with exam Patient is very hard of hearing No lymph nodes are felt head, neck, supraclavicular area There is no thyromegaly JVD is less than 6 cm No carotid bruits are heard Heart is regular rate and rhythm without murmur Lungs are notable for coarse upper airway sounds bilaterally Abdomen is soft, bowel sounds positive, no organomegaly. He is tender over the right lower chest and right upper abdomen where the rib fractures are. Extremities have no ankle edema Neurologic exam: This exam is very difficult, unreliable and intermittently normal. He does not appear to be having any lateralizing deficits, cranial nerve deficits, etc.. He also seems to either choose to not participate or is unable to hear the exam attempts. His does the communication for him and that appears to be habitual and not isolated to this interaction. Objective Labs Result Diagrams: 09/24/21 10:00 09/24/21 10:00 Labs: Laboratory Results - last 24 hr 09/24/21 09/24/21 09/24/21 10:00 10:00 10:00 WBC 24.6 H RBC 2.41 L Hgb 8.6 L Hct 25.8 L MCV 107.0 H MCH 35.8 H MCHC 33.4 RDW 18.3 H Plt Count 171 Neut % (Auto) 90.7 H Lymph % (Auto) 2.5 L [place] % (Auto) 6.5 Eos % (Auto) 0.1 L Baso % (Auto) 0.2 Neut # (Auto) 55981 H Lymph # (Auto) 600 L [place] # (Auto) 1600 H Eos # (Auto) 0 Baso # (Auto) 0 PT 10.9 INR 1.0 APTT 45 H Sodium 143 Potassium 5.4 H Chloride 106 Carbon Dioxide 31 BUN 59 H Creatinine 2.57 H Estimated GFR 24.0 L BUN/Creatinine Ratio 23.0 H Glucose 79 L Lactate Calcium 10.0 Total Creatine Kinase CK-MB (CK-2) CK-MB (CK-2) Rel Index Troponin I NT-Pro-B Natriuret Pep Procalcitonin Urine Color Urine Appearance Urine pH Ur Specific [place] Urine Protein Urine Glucose (UA) Urine Ketones Urine Occult Blood Urine Nitrate Urine Bilirubin Urine Urobilinogen Ur Leukocyte Esterase Urine RBC Urine WBC Amorphous Sediment Urine Bacteria Ur Culture Indicated? SARS-CoV-2 (PCR) Blood Type Antibody Screen 09/24/21 09/24/21 09/24/21 10:07 10:07 10:07 WBC RBC Hgb Hct MCV MCH MCHC RDW Plt Count Neut % (Auto) Lymph % (Auto) [place] % (Auto) Eos % (Auto) Baso % (Auto) Neut # (Auto) Lymph # (Auto) [place] # (Auto) Eos # (Auto) Baso # (Auto) PT INR APTT Sodium Potassium Chloride Carbon Dioxide BUN Creatinine Estimated GFR BUN/Creatinine Ratio Glucose Lactate 1.4 Calcium Total Creatine Kinase 156 CK-MB (CK-2) 8.91 H CK-MB (CK-2) Rel Index 5.7 H Troponin I < 0.012 NT-Pro-B Natriuret Pep 902 H Procalcitonin Urine Color Urine Appearance Urine pH Ur Specific [place] Urine Protein Urine Glucose (UA) Urine Ketones Urine Occult Blood Urine Nitrate Urine Bilirubin Urine Urobilinogen Ur Leukocyte Esterase Urine RBC Urine WBC Amorphous Sediment Urine Bacteria Ur Culture Indicated? SARS-CoV-2 (PCR) Blood Type Antibody Screen 09/24/21 09/24/21 09/24/21 10:07 10:48 10:50 WBC RBC Hgb Hct MCV MCH MCHC RDW Plt Count Neut % (Auto) Lymph % (Auto) [place] % (Auto) Eos % (Auto) Baso % (Auto) Neut # (Auto) Lymph # (Auto) [place] # (Auto) Eos # (Auto) Baso # (Auto) PT INR APTT Sodium Potassium Chloride Carbon Dioxide BUN Creatinine Estimated GFR BUN/Creatinine Ratio Glucose Lactate Calcium Total Creatine Kinase CK-MB (CK-2) CK-MB (CK-2) Rel Index Troponin I NT-Pro-B Natriuret Pep Procalcitonin 0.44 Urine Color Yellow Urine Appearance Clear Urine pH 6.5 Ur Specific [place] 1.010 Urine Protein 2+ H Urine Glucose (UA) Negative Urine Ketones Negative Urine Occult Blood Trace-lysed Urine Nitrate Negative Urine Bilirubin Negative Urine Urobilinogen 0.2 Ur Leukocyte Esterase Negative Urine RBC None seen Urine WBC None seen Amorphous Sediment 1+ Urine Bacteria None seen Ur Culture Indicated? Cult not indicated SARS-CoV-2 (PCR) Blood Type O Positive Antibody Screen Negative 09/24/21 10:57 WBC RBC Hgb Hct MCV MCH MCHC RDW Plt Count Neut % (Auto) Lymph % (Auto) [place] % (Auto) Eos % (Auto) Baso % (Auto) Neut # (Auto) Lymph # (Auto) [place] # (Auto) Eos # (Auto) Baso # (Auto) PT INR APTT Sodium Potassium Chloride Carbon Dioxide BUN Creatinine Estimated GFR BUN/Creatinine Ratio Glucose Lactate Calcium Total Creatine Kinase CK-MB (CK-2) CK-MB (CK-2) Rel Index Troponin I NT-Pro-B Natriuret Pep Procalcitonin Urine Color Urine Appearance Urine pH Ur Specific [place] Urine Protein Urine Glucose (UA) Urine Ketones Urine Occult Blood Urine Nitrate Urine Bilirubin Urine Urobilinogen Ur Leukocyte Esterase Urine RBC Urine WBC Amorphous Sediment Urine Bacteria Ur Culture Indicated? SARS-CoV-2 (PCR) Negative Blood Type Antibody Screen Assessment & Plan Assessment & Plan narrative: This is an 84-year-old male with COPD, lung cancer, chronic kidney disease, esophagitis and severe hearing loss who fell at home fracturing ribs 11 and 12 on the right side with resultant pneumonia and hypoxia. When he presented to the emergency department he was initially saturating in the low 90s but subsequently dropped to the 70s and is now needing high-flow nasal cannula oxygen supplementation. Right Lung Pneumonia, present on admission. Active. -Related to fall and rib fractures with respiratory splinting/shallow breathing -CXR with RML infiltrate, WBC 24.6 -IV Ceftriaxone, Azithromycin -Oxygen by HFNC Hypoxemic Respiratory Failure, present on admission. Active. -HFNC 40 L, titrate. DNI/DNR. -IV Solumedrol, Albuterol -Ceftriaxone, Azithromycin IV Traumatic Right Rib Fractures - 11 and 12, present on admission. Active. -pain control with prn Hydrocodone -No pneumothorax seen Severe hearing loss, present on admission. Active. COPD, present on admission. Chronic. -Started on IV Solumedrol on admission -Albuterol -Oxygen by MA to keep sat >90% Anemia, present on admission. Active. -hgb 8.6 on admission, follow CKD/SYLVIE, present on admission. Active. -Creatinine 2.57 on admission, follow and hydrate gently. (BNP 902) Hypertension, present on admission. Chronic. -Continue Amlodipine GERD, present on admission. Chronic. -Continue Omeprazole Hyperlipidemia. present on admission. Chronic. -Continue Rosuvastatin DVT prevention, SCD, begin Enoxaparin soon His Arely Chambers is his backup decision maker. Time Spent With Patient Critical Care time: I spent a total of [] minutes of critical care time on this patient's care today; this time is exclusive of procedural time.
[2021-09-24] MEDS: SODIUM CHLORIDE 0.9% 1,000 ML 100 ML IV ×2 (18:32→21:14)
--- NOTE | 2021-09-24 18:33 | PC.NURSE ---
PT ARRIVED TO ICU ROOM #230 IN AFIB/PACED RHYTHM, MOSTLY NONVERBAL - AND LOOKING OFF INTO SPACE-HE IS MUCH LESS ACTIVE WITH LEFT UPPER EXTREMITY AND STATES THIS RECENT PLACED PACEMAKER IS THE REASON. PT FELL AT HOME ON PREVIOUS SUNDAY AND WAS TREATED AND DISCHARGE TO HOME- HE HAS BEEN LESS ACTIVE PER HIS AND COUGHING MUCH MORE - BODY INCLUDING FOREHEAD IS COVERED WITH BRUISES AND ABRASIONS OF VARYING STAGES OF HEALING- NOTABLY ON LEFT UPPER CHEST/SHOULDER AREA AND RIGHT FLANK/BACK AREA. IMMEDIATELY CHANGED FROM HHFNC TO 2L NC WITH PT'S SPO2 HIGH 90'S - DENIES PAIN BUT WINCES WHEN REPOSITIONED - WINN PATENT AND TEMP( PER WINN PROBE 99.7)LUNGS COARSE THROUGHOUT, WITH BRONCHOSPASTIC PRODUCTUVE COUGH IN WHICH HE SWALLOWS SPUTUM- INFORMED US PRIOR TO HER DEPARTURE THAT PT DRINKS 2-6 BEERS/DAILY AND HAS WENT THROUGH ETOH WITHDRAWLS DURING PRIOR HOPSITALIZATIONS
[2021-09-24] MEDS: methylPREDNISolone 125 MG/2 ML VIAL 60 MG IV (21:10)
[2021-09-25] VITALS (8 sets, daily range): BP systolic 114–144; BP diastolic 53–68; PULSE 62–75; RESP 15–25; TEMP 37.3–37.6; O2SAT 91–99
[2021-09-25] MEDS: methylPREDNISolone 125 MG/2 ML VIAL 60 MG IV ×3 (04:52→21:02)
[2021-09-25 05:09] LABS: Add Manual Diff / Slide Review NO; Basophils Absolute Auto 0 /uL (0-100); Basophils Percent Auto 0.1 % (0-2); Eosinophils Absolute Auto 0 /uL (0-450); Hematocrit 23.5 % (41-53); Hemoglobin 7.5 g/dL (13.5-17.5); Lymphocytes Absolute Auto 600 /uL (1100-4500); Lymphocytes Percent Auto 2.9 % (25-40); Mean Corpuscular HGB Conc 32.1 % (30-36); Mean Corpuscular Hemoglobin 35.3 PG (26-34); Monocytes Absolute Auto 800 /uL (0-900); Monocytes Percent Auto 3.8 % (3-14); Neutrophils Absolute Auto 19500 /uL (1500-7000); Neutrophils Percent Auto 93.2 % (50-75); Platelet Count 144 X10^3/uL (150-400); Red Blood Cell Count 2.13 X10^6/uL (4.5-5.9); Red Cell Distribution Width 18.7 % (11.6-14.8); White Blood Cell Count 20.9 X10^3/uL (4.5-11.0)
--- NOTE | 2021-09-25 06:04 | PC.NURSE ---
shift note: Pt has been difficult to arouse at times and when he does wake is oriented to self and place but not situation. Pt failed his swallow eval x2 and PO meds held. Productive cough noted but pt not awake enough to expectorate.
[2021-09-25 08:02] LABS: BUN Creatinine Ratio 22.6 (6-22); Blood Urea Nitrogen 51 mg/dL (9-20); Calcium 9.5 mg/dL (8.4-10.2); Carbon Dioxide 27 mmol/L (22-32); Chloride 110 mmol/L (98-107); Estimated Glomerular Filt Rate 27.8 mL/min (>60); Glucose 117 mg/dL (80-110); HEMOLYSIS < 15 (0-50); Potassium 4.6 mmol/L (3.4-5.1); Sodium 142 mmol/L (137-145)
[2021-09-25] MEDS: SODIUM CHLORIDE 0.9% 1,000 ML 100 ML IV ×2 (09:11→20:14)
[2021-09-25] MEDS: cefTRIAXone 1,000 MG in SODIUM CHLORIDE 0.9% 100 ML 200 ML IV (12:35)
[2021-09-25] MEDS: ENOXAPARIN 30 MG/0.3 ML SYRINGE SUBCUT (12:35)
[2021-09-25] MEDS: MAGNESIUM OXIDE 400 MG TABLET PO (13:46)
[2021-09-25] MEDS: AZITHROMYCIN 500 MG in DEXTROSE 5% IN WATER 250 ML IV (13:46)
[2021-09-25] MEDS: ASPIRIN 81 MG CHEW TAB PO (13:47)
[2021-09-25] MEDS: THIAMINE 100 MG TABLET PO (13:47)
[2021-09-25] MEDS: HYDROCODONE/ACET 5/325 TABLET 1 TAB PO (13:47)
[2021-09-25] MEDS: MULTIVITAMIN 1 TABLET 1 TAB PO (13:47)
[2021-09-25] MEDS: PANTOPRAZOLE DR 20 MG TABLET PO (13:47)
[2021-09-25] MEDS: AMLODIPINE 5 MG TABLET PO ×2 (13:48→21:00)
--- NOTE | 2021-09-25 13:51 | P.PN_ITS ---
Subjective Subjective Date Patient Seen: 09/25/21 Time Patient Seen: 08:00 Interval history: Today he says he feels improved. He still feels he has phlegm to cough up. His shortness of breath is improving Exam Vital Signs (past 8 hours): - 09/25/21 08:00 09/25/21 09:50 09/25/21 10:10 Temperature 99.7 F H Pulse Rate 75 62 Respiratory Rate 25 H 16 Blood Pressure 138/63 Pulse Oximetry 94 98 98 Fraction of Inspired Oxygen 30 Oxygen Delivery Method Nasal Cannula Oxygen Flow Rate 2 Narrative Exam Narrative: GEN: no acute distress PULM: coarse breath sounds bilaterally EXT: trace edema Objective Labs Result Diagrams: 09/25/21 04:20 09/25/21 04:20 Labs: Laboratory Results - last 24 hr 09/24/21 09/25/21 09/25/21 17:35 04:20 04:20 WBC 20.9 H RBC 2.13 L Hgb 7.5 L Hct 23.5 L MCV 110.0 H D MCH 35.3 H MCHC 32.1 RDW 18.7 H Plt Count 144 L Neut % (Auto) 93.2 H Lymph % (Auto) 2.9 L [place] % (Auto) 3.8 Eos % (Auto) 0.0 L Baso % (Auto) 0.1 Neut # (Auto) 47219 H Lymph # (Auto) 600 L [place] # (Auto) 800 Eos # (Auto) 0 Baso # (Auto) 0 Sodium 142 Potassium 4.6 Chloride 110 H Carbon Dioxide 27 BUN 51 H Creatinine 2.26 H Estimated GFR 27.8 L BUN/Creatinine Ratio 22.6 H Glucose 117 H Calcium 9.5 Nasal Screen MRSA (PCR) Negative for mrsa [facility] Medical History Adenocarcinoma of right lung, stage 1 (~05/10/20) Anemia Benign prostatic hyperplasia (01/29/12) BPH w urinary obs/LUTS Bradycardia Cellulitis Centrilobular emphysema (12/13/16) Cholesteatoma (09/10/12) Chronic kidney disease (CKD) stage G3a/A1, moderately decreased glomerular filtration rate (GFR) between 45-59 mL/min/1.73 square meter and albuminuria creatinine ratio less than 30 mg/g COPD (chronic obstructive pulmonary disease) DNR (do not resuscitate) Hemorrhagic cerebrovascular accident (CVA) (~2006) Hydronephrosis, left Hyperlipidemia Hypertension Lower urinary tract symptoms (LUTS) Lung cancer Macrocytic anemia (07/06/16) Mild alcohol abuse (03/26/15) Olecranon bursitis Peripheral vascular disease of foot (05/31/17) Pneumonia Primary adenocarcinoma of upper lobe of right lung Sinusitis Stenosis of left femoral artery Stroke Substance abuse Syncope Syncope and collapse (09/10/12) Tobacco use disorder, continuous (09/10/12) Transient cerebral ischemia (04/23/12) Traumatic compression fracture of seventh thoracic vertebra, sequela (10/09/16) Tubular adenoma Urinary retention Surgical History History of carpal tunnel repair (03/02/15) History of cataract removal with insertion of prosthetic lens (02/16/15) History of cataract removal with insertion of prosthetic lens (03/09/15) History of tonsillectomy Status post appendectomy Status post colonoscopy (10/06/09) Status post lobectomy of lung (~04/2020) Status post repair of hydrocele (05/22/11) Family History Brother Lung cancer Father Lung cancer Mother Migraines Social History marital status: number of children: 2 household members: spouse Smoking Status: Current every day smoker Tobacco: How many years used: 69 quit status: considering quitting alcohol intake: current caffeine: Yes Assessment & Plan Assessment & Plan narrative: This is an 84-year-old male with COPD, lung cancer, chronic kidney disease, esophagitis and severe hearing loss who fell at home fracturing ribs 11 and 12 on the right side with resultant pneumonia and hypoxia.? When he presented to the emergency department he was initially saturating in the low 90s but subsequently dropped to the 70s and is now needing high-flow nasal cannula oxygen supplementation. Right Lung Pneumonia, present on admission.? Active. -Related to fall and rib fractures with respiratory splinting/shallow breathing -CXR with RML infiltrate, WBC 24.6 -IV Ceftriaxone, Azithromycin -Oxygen by HFPR has been stopped and he is switched to nasal cannula Hypoxemic Respiratory Failure, present on admission.? Active. -HFNC 40 L initially but now down to nasal cannula. DNI/DNR. -IV Solumedrol, Albuterol -Ceftriaxone, Azithromycin IV Traumatic Right Rib Fractures - 11 and 12, present on admission.? Active. -pain control with prn Hydrocodone -No pneumothorax seen Severe hearing loss, present on admission. Active. COPD, present on admission.? Chronic. -Started on IV Solumedrol on admission -Albuterol -Oxygen by PR to keep sat >90% Anemia, present on admission.? Active. -hgb 8.6 on admission, follow CKD/SYLVIE, present on admission.? Active. -Creatinine 2.57 on admission, follow and hydrate gently. (BNP 902) Hypertension, present on admission.? Chronic. -Continue Amlodipine GERD, present on admission.? Chronic. -Continue Omeprazole Hyperlipidemia. present on admission.? Chronic. -Continue Rosuvastatin Time Spent With Patient Critical Care time: I spent a total of [] minutes of critical care time on this patient's care today; this time is exclusive of procedural time. Quality VTE Deep Vein Thrombosis/Pulmonary Embolism Present on Admission: No
[2021-09-25] MEDS: LIDOCAINE PATCH 1 EACH ADH..PATCH TOP (13:54)
--- NOTE | 2021-09-25 18:19 | PC.NURSE ---
pt with increased alertness and awareness throughout the day- initially was unable to pass RN swallowing eval but progressed to h20 then applesauce and is taking a regular diet- will order soft foods for him- official study ordered for tomorrow- no coughing with swallow noted, gram -bacilli noted in sputum culture, lungs remain coarse but pt not requiring any o2, NS @ 100cc/h - skin remains in poor shape
[2021-09-25] MEDS: ATORVASTATIN 20 MG TABLET 10 MG PO (21:00)
[2021-09-26] VITALS (14 sets, daily range): BP systolic 131–155; BP diastolic 63–77; PULSE 61–88; RESP 14–22; TEMP 36–36.7; O2SAT 75–99
[2021-09-26] MEDS: methylPREDNISolone 125 MG/2 ML VIAL 60 MG IV ×2 (04:36→14:13)
[2021-09-26] MEDS: LORazepam 1 MG TABLET PO ×4 (05:28→21:41)
[2021-09-26] MEDS: PANTOPRAZOLE DR 20 MG TABLET PO (05:28)
[2021-09-26] MEDS: SODIUM CHLORIDE 0.9% 1,000 ML 100 ML IV (05:49)
[2021-09-26 08:57] LABS: BUN Creatinine Ratio 33.2 (6-22); Blood Urea Nitrogen 61 mg/dL (9-20); Calcium 9.1 mg/dL (8.4-10.2); Carbon Dioxide 23 mmol/L (22-32); Chloride 107 mmol/L (98-107); Estimated Glomerular Filt Rate 35.3 mL/min (>60); Glucose 140 mg/dL (80-110); HEMOLYSIS 25 (0-50); Potassium 4.7 mmol/L (3.4-5.1); Sodium 136 mmol/L (137-145)
[2021-09-26 09:04] LABS: Mean Corpuscular HGB Conc 32.5 % (30-36); Mean Corpuscular Hemoglobin 35.9 PG (26-34); Mean Corpuscular Volume 110.6 fL (80-100); Platelet Count 133 X10^3/uL (150-400); Red Cell Distribution Width 18.7 % (11.6-14.8); White Blood Cell Count 14.2 X10^3/uL (4.5-11.0)
[2021-09-26 09:21] LABS: Hemoglobin 6.8 g/dL (13.5-17.5)
--- NOTE | 2021-09-26 09:59 | SLP.IPNOTE ---
Attempted Speech Therapy evaluation. Pt was sleeping. Nsg informed he had begun alcohol withdrawal with increased confusion and hallucinations. Pt not appropriate to be seen at the time. Will attempt again this afternoon.
[2021-09-26 10:49] LABS: Reticulocyte Count, Percent 2.2 % (0.9-2.6)
[2021-09-26 10:58] LABS: HEMOLYSIS < 15 (0-50); Iron 44 ug/dL (49-181); Lactate Dehydrogenase 833 U/L (313-618)
--- NOTE | 2021-09-26 11:07 | PC.NURSE ---
Addendum entered by Vianey Starks R.N. 09/26/21 12:50: Transfusion being tolerated well, until Pt disconnected tubing, confused, following direction with significant cues from staff. [place] and impulsive. PT was able to transfer to chair with 1PA mod. Declines to use FWW, I walked in here just fine Sitting up in chair. Bedside swallow eval done with Pt and this RN. Able to follow instructions with cues from staff. Needing some cues for slowing, purposeful swallowing. No cough noted with PO intake. Exertional exp wheeze noted after blood transfusion. [place] patent. Addendum entered by Vianey Starks R.N. 09/26/21 11:11: Pt remains quite sedated this AM, unable to participate with speech eval, or PT this AM, transfusion pending, DC order cancelled. updated. Original Note: 1105-Obtained consent from via phone, second RN Jackie confirmed. Type/cross done.
[2021-09-26 11:08] LABS: Percent Iron Saturation 15 % (20-50); Total Iron Binding Capacity 302 ug/dL (261-462); Transferrin 247 mg/dL (206-381)
--- NOTE | 2021-09-26 11:58 | PT-IP ANOTE ---
H&H dropped to 6.8/21.0 on last draw. Per [employer], pt receiving transfusion 1 unit now. Will follow repeat labs for appropriateness of PT evaluation.
[2021-09-26 12:07] LABS: Folate 19.5 ng/mL (2.76-20.0); Vitamin B12 > 1000 pg/mL (239-931)
[2021-09-26] MEDS: cefTRIAXone 1,000 MG in SODIUM CHLORIDE 0.9% 100 ML 200 ML IV (14:00)
--- NOTE | 2021-09-26 14:10 | ST.IPIE ---
Visit Care Team Role Provider Type Valarie Noel MD Primary Care Provider Physician Specialty: Family Practice Address: [address] [place] [address], [address] Phone: Fax: Email: [email or web address] Jeet Fernandez MD Emergency Provider Physician Referring Provider Specialty: Emergency Medicine Address: [address] [place] [address], [address] Email: [email or web address] Daniele Goodrich MD Admit Provider Physician Attending Provider Specialty: Medical Address: [address] [place] [address], [id number] Email: [email or web address] Current Diagnoses Pneumonia, unspecified organism (09/24/21) Past Medical History (Last Reviewed 09/24/21 @ 15:19 by Jeet Fernandez MD) Adenocarcinoma of right lung, stage 1 (Medical ~05/10/20) resected Anemia (Medical) Benign prostatic hyperplasia (Medical 01/29/12) BPH w urinary obs/LUTS (Medical) Bradycardia (Medical) 11/2012 cardiology consult Cellulitis (Medical) Centrilobular emphysema (Medical 12/13/16) PFT 04/2020 stable, NO improvement with bronchodilator PFT 08/30/2016 moderately severe obstructive lung disease with significant benefit from bronchodilator, mild restrictive disease Cholesteatoma (Medical 09/10/12) 09/2015 ENT consult recommended tubes, patient declined Chronic kidney disease (CKD) stage G3a/A1, moderately decreased glomerular filtration rate (GFR) between 45-59 mL/min/1.73 square meter and albuminuria creatinine ratio less than 30 mg/g (Medical) COPD (chronic obstructive pulmonary disease) (Medical) Severe OAD on PFT 04/24/20 DNR (do not resuscitate) (Medical) reconfirmed with ER visit 10/21/2020 Hemorrhagic cerebrovascular accident (CVA) (Medical ~2006) no residual. Hemorrhagic Hydronephrosis, left (Medical) Hyperlipidemia (Medical) Hypertension (Medical) Lower urinary tract symptoms (LUTS) (Medical) Lung cancer (Medical) Macrocytic anemia (Medical 07/06/16) Mild alcohol abuse (Medical 03/26/15) Olecranon bursitis (Medical) Peripheral vascular disease of foot (Medical 05/31/17) fall 2019 started aspirin Pneumonia (Medical) Primary adenocarcinoma of upper lobe of right lung (Medical) Sinusitis (Medical) Status post lobectomy of lung (Medical ~04/2020) Stenosis of left femoral artery (Medical) Stroke (Medical) Substance abuse (Medical) Alcohol Syncope (Medical) Syncope and collapse (Medical 09/10/12) Tobacco use disorder, continuous (Medical 09/10/12) Transient cerebral ischemia (Medical 04/23/12) Traumatic compression fracture of seventh thoracic vertebra, sequela (Medical 10/09/16) Tubular adenoma (Medical) Urinary retention (Medical) ST IP Initial Evaluation Report MANAGER EXCHANGE Clinical Swallow Evaluation Start: 09/26/21 15:25 Freq: Status: Active Protocol: Document 09/26/21 15:25 AMY (Rec: 09/26/21 15:30 AMY [id number]) Clinical Swallow Evaluation Session Time Visit Start Time 13:40 Visit Stop Time 14:00 Total Visit Minutes [address] Hood Travis Reason for Referral Dysphagia Setting Assessment Location Acute Care Visit Type Note Type Initial evaluation Next Note Type Next Note Type Treatment Note Patient Information Identification Type Name,ID Card History This is an 84-year-old male with COPD, lung cancer, chronic kidney disease, esophagitis and severe hearing loss who fell at home fracturing ribs 11 and 12 on the right side with resultant pneumonia and hypoxia.? When he presented to the emergency department he was initially saturating in the low 90s but subsequently dropped to the 70s and is now needing high- flow nasal cannula oxygen supplementation. Subjective Observations The pt failed multiple swallow screenings with Nursing over the weekend, finally passing it Sunday night. Regular diet texture and thin liquids were ordered. Overnight, the pt began alcohol withdrawal and was unable this morning to participate in swallow evaluation. He received a blood transfusion midday and was much more alert and less confused after. At the time of this clinician's arrival, the pt was sitting up in the chair and eating lunch independently. He denied swallow difficulties and was agreeable to evaluation. Throughout the evaluation, the pt's speech and language were inconsistently intelligible. The pt made comments not aligned with topics. At one time he reported seeing his daughter and grandson in the nurse's station, though only the pt's nurse was present. He accepted the clinician's report that they were not there. Reported by Patient Current Diet Regular,Thin liquids Baseline Feeding Method Independent in self-feeding Patient Questionnaire No Objective Assessment Mental Status Alert,Responsive,Cooperative, Confused Oral Integrity WFL Dentition Missing teeth Comment Oral peripheral exam was made based on observations while the pt was eating. He was missing all lower molars and several upper molars, bilaterally. Front teeth were present and in adequate condition. The pt stated he was able to chew most foods, though some meats are challenging. Food and Liquid Trials Position During Assessment Upright (90 degrees),In chair Liquids Trialed Thin Solids Trialed Mechanical Soft,Regular Administration Type Straw,Self-feeding Oral Impairment Mildly impaired Oral Phase Comments Visual inspection of the oral cavity after swallow revealed mild oral residue at right buccal cavity. Mastication was mildly prolonged d/t sparse dentition. Pharyngeal Impairment Within normal limits Pharyngeal Phase Comments No overt s/sx of aspiration were observed. Fatigue/Endurance Endurance WNL Comment The pt was noted to take large bites and eat quickly. Nevertheless, he exhibited no overt s/sx of aspiration. Findings Swallowing Function Oral phase dysphagia Severity of Swallow Impairment Mildly impaired Contributing Factors to Swallow Mastication inefficiency, Impairment Excessive oral residue Prognosis Good Based on Duration of symptoms/severity Recommendations Instrumental Assessment No Swallowing Treatment Yes Frequency 1-2 visits Duration over course of hospital stay Recommended Solids Mechanical Soft Recommended Liquids Thin Other Recommendations Set up assistance to ensure food is cut into small bites Safety Precautions/Swallowing Feed only when alert,Reduce Recommendations distractions,Remain upright ( 90 degrees) during all oral intake,Needs verbal cues to use recommended strategies, Upright position at least 30 minutes after meals,Small bites and sips when eating, Slow rate; swallow between bites,Strict oral care after intake,Check for pocketing Medication Recommendations As Tolerated Discharge Recommendations Other (comment) Comments Home with supervision Education Patient/Caregiver Education Described results of evaluation,Patient expressed understanding of evaluation, Patient expressed agreement with goals & treatment plans, Patient expressed understanding of safety precautions,Patient expressed understanding of feeding recommendations,Patient requires further education/ training Goals Short-term Goals 1. The pt will follow safe swallow strategies with min prompts to reduce risk of aspiration. Long-term Goals 1. The pt will tolerate least restrictive diet to meet his nutrition and hydration needs.
[2021-09-26] MEDS: AZITHROMYCIN 500 MG in DEXTROSE 5% IN WATER 250 ML IV (14:12)
[2021-09-26] MEDS: ASPIRIN 81 MG CHEW TAB PO (14:23)
[2021-09-26] MEDS: AMLODIPINE 5 MG TABLET PO ×2 (14:24→20:37)
--- NOTE | 2021-09-26 15:50 | PT.IIE ---
Current Diagnoses Pneumonia, unspecified organism (09/24/21) Surgical History (Last Reviewed 09/24/21 @ 15:19 by Jeet Fernandez MD) History of carpal tunnel repair (03/02/15) History of cataract removal with insertion of prosthetic lens (02/16/15) History of cataract removal with insertion of prosthetic lens (03/09/15) History of tonsillectomy Status post appendectomy Status post colonoscopy (10/06/09) Status post repair of hydrocele (05/22/11) Medical History (Last Reviewed 09/24/21 @ 15:19 by Jeet Fernandez MD) Adenocarcinoma of right lung, stage 1 (~05/10/20) Anemia Benign prostatic hyperplasia (01/29/12) BPH w urinary obs/LUTS Bradycardia Cellulitis Centrilobular emphysema (12/13/16) Cholesteatoma (09/10/12) Chronic kidney disease (CKD) stage G3a/A1, moderately decreased glomerular filtration rate (GFR) between 45-59 mL/min/1.73 square meter and albuminuria creatinine ratio less than 30 mg/g COPD (chronic obstructive pulmonary disease) DNR (do not resuscitate) Hemorrhagic cerebrovascular accident (CVA) (~2006) Hydronephrosis, left Hyperlipidemia Hypertension Lower urinary tract symptoms (LUTS) Lung cancer Macrocytic anemia (07/06/16) Mild alcohol abuse (03/26/15) Olecranon bursitis Peripheral vascular disease of foot (05/31/17) Pneumonia Primary adenocarcinoma of upper lobe of right lung Sinusitis Stenosis of left femoral artery Stroke Substance abuse Syncope Syncope and collapse (09/10/12) Tobacco use disorder, continuous (09/10/12) Transient cerebral ischemia (04/23/12) Traumatic compression fracture of seventh thoracic vertebra, sequela (10/09/16) Tubular adenoma Urinary retention Physical Therapy Inpatient Evaluation/Re-Eval M1 PT/OT-IP Prior Functional Status Start: 09/26/21 08:30 Freq: NEEDED Status: Active Protocol: Document 09/26/21 15:50 AW (Rec: 09/26/21 16:55 AW [id number]) Medical Review Prior Functional Status Medical History Reviewed Yes Communication Pt is able to make his needs known but with increased confusion. He has severe hearing loss. He is alert at this encounter but not oriented to time, place, or situation. Mobility and Gait Pt reports independent mobility without AD which is limited primarily by SOB secondary to COPD. Per pt's , he is always moving, always active. Pt fell while using a plastic crate as a step stool and fractured ribs 11-12. He and his deny other falls. Activities of Daily Living and IADL's Independent with all ADL's and IADL's. 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 He manages his own medications. His spouse manages his finances. Prior Functional Level (Other details) PMH includes COPD, lung cancer , CKD3, pacemaker, current smoker, and daily drinker. Social History Household Members spouse Living Arrangements House Number of Floors (Floors) 3 or More Floors Number of Stairs To Enter/Railing? 2 NAVYA with no rail. Pt climbs 13 steps to the bedroom level with left rail ascending. 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 He lives with his , Arely. They have a child in [place] and another child who lives closer but is currently away. M2 PT-IP Current Condition Start: 09/26/21 08:30 Freq: NEEDED Status: Active Protocol: Document 09/26/21 15:50 AW (Rec: 09/26/21 16:55 AW [id number]) Physical Therapy Current Condition Current Condition Evaluation Date 09/26/21 Treatment Diagnosis pneumonia, rib fractures, impaired gait and mobility Onset Date 09/22/21 M3 PT-IP Subjective Start: 09/26/21 08:30 Freq: NEEDED Status: Active Protocol: Document 09/26/21 15:50 AW (Rec: 09/26/21 16:55 AW [id number]) Subjective Physical Therapy Visit Type Type Initial Evaluation Visit Start Time 15:17 Visit Stop Time 15:50 Total Visit Minutes 33 Notes Pt's spouse was present during evaluation and contributed heavily to history. Pt had finished transfusion. H &H was drawn but not resulted when PT entered the room. After eval, result was posted: 9.3/28.1. Number of DIRECTOR SPORTS Visits 0 Physical Therapy Visit Comments Patient Comments Pt is willing to participate with PT Therapy Pain Assessment Pain When Pain Assessed During Mobility Pain Present Pain Present Denied Pain M4 PT-IP Mobility and Gait Start: 09/26/21 08:30 Freq: NEEDED Status: Active Protocol: Document 09/26/21 15:50 AW (Rec: 09/26/21 16:55 AW [id number]) PT-Transfer Assessment Sit to and From Stand Sit to and from Stand Minimal Assistance,1 Person Assistance,Use of Upper Extremities Equipment Transfer Assistive Device Gait Belt,Front Wheeled Walker Orthotic/Prosthetic Devices or Brace: No Transfers Transfer Destination Chair Transfer Technique pt ambulated with FWW Transfer Ability Level of Assist Minimal Assistance,1 Person Assistance,Use of Upper Extremities Comments Mobility Comments Pt was sitting on the chair as PT arrived. Chair alarm was on as pt had attempted to transfer without assist earlier in the day. BP assessed 136/77 HR 70 SpO2 98% RA. Pt stood from the chair with heavy use of UE's and min assist for balance. In immediate standing, pt lost his balance posteriorly and needed min/mod assist to recover. He used FWW to steady himself and attempted to step away from the chair. He took a few steps to the side and then attempted to sit with no chair behind him. PT provided cues and mod assist to keep pt standing. Pt was assisted back to the chair with max cues for positioning. Pt stood from the chair again min A and used FWW to ambulate around the room a total of 30 feet mod A x 1 for balance support and safe use of FWW. Pt sat again with max cues and poor control of descent. He was positioned with call light and tray table in reach. Chair alarm was armed for safety. Gait Assessment Gait Gait Assistance Required: Minimum Assistance,Moderate Assistance,1 Person Assist Distance (Feet) 30 Able to Maintain Weight Bearing Status No During Gait Assistive Devices Assistive Device Gait Belt,Front Wheeled Walker Orthotic/Prosthetic Devices or Brace: No Gait Deviations General Gait Pattern Ataxic,Decreased Stride Length ,Decreased Feet Clearance, Flexed Trunk,Narrow Based Gait Factors Limiting Gait Function Factors Limiting Gait Function Decreased Activity Tolerance, Decreased Sensation,Decreased Strength,Difficulty Following Directions,Incoordination,Pain ,Poor Balance,Poor Safety Awareness,Respiratory Distress Comments Gait Comments Pt is severely unsteady on his feet with poor trunk control, scissoring gait, impaired motor planning and coordination. Stair Climbing Assessment Comments Stair Climbing Comments Not assessed. Pt not safe for stairs assessment at this time . PT-Balance Assessment Sitting Balance and Reactions Static Sitting Balance Ability Good Dynamic Sitting Balance Ability Fair Standing Balance and Reactions Static Standing Balance Ability Poor Dynamic Standing Balance Ability Poor Device Used FWW M5 PT-IP Objective Assessments Start: 09/26/21 08:30 Freq: NEEDED Status: Active Protocol: Document 09/26/21 15:50 AW (Rec: 09/26/21 16:55 AW [id number]) Orientation Orientation/Cognition Level of Alertness Alert Orientation Name Language Function Ability Hard of Hearing Safety Awareness Decreased Safety Awareness Comments Pt is oriented to his name but not to , month, year, place, or situation. Gross Range of Motion Lower Extremity ROM Assessment Within Functional Limits Strength Lower Extremity Strength Assessment Bilaterally Impaired Comments Strength Comments Pt has difficulty following commands for formal strength assessment but is grossly 4/5 to 4+/5 BLE. 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 M6 PT-IP Treatment Start: 09/26/21 08:30 Freq: NEEDED Status: Active Protocol: Document 09/26/21 15:50 AW (Rec: 09/26/21 16:55 AW [id number]) Physical Therapy Treatment Education Education Provided Safety M7 PT-IP Assessment and Plan Start: 09/26/21 08:30 Freq: NEEDED Status: Active Protocol: Document 09/26/21 15:50 AW (Rec: 09/26/21 16:55 AW [id number]) PT Summary Assessment and Plan Potential Rehabilitation Potential Good Status of Condition at Evaluation Evolving Summary Impairments Pain,Strength,Balance, Coordination,Sensation, Cognition,Bed Mobility, Transfers,Gait Assessment Summary Rosalino is an 85 yo man admitted with pneumonia after a recent fall with fractures to ribs 11 -12. He is independent in all regards according to himself and his spouse but admits his mobility is limited by shortness of breath due to COPD. On assessment, he was impulsive and had poor dynamic balance even with FWW. VS including SpO2 were stable throughout. Unclear how much CIWA score of 8 may have contributed to need for increased assist. PT will continue to assess but if he does not progress, he may require SNF rehab as his may not be able to provide the level of assist required. If he goes home, he will need 24/ 7 assist with all mobility and home health PT. Goals Bed Mobility Goal Independent Transfer Goal Independent Gait Goal Independent,Front Wheel Walker Gait Distance 200 Other Goals - up/down 2 steps without rail SBA - up/down 13 steps with left rail ascending SBA - progress gait to IND without AD Days to Meet Goals 5 Frequency of Treatment Frequency Of Treatment Once a Day Treatment Plan Physical Therapy Treatment Plan Bed Mobility Training,Transfer Training,Gait Training, Therapeutic Exercise,Balance Retraining,Discharge Planning, Neuromuscular Re-ed, Coordination Retraining Other Recommendations and Next Treatment gait training with LRAD Focus Precautions Other Precautions falls risk Recommendations To Nursing Amount of Assist Needed 1 Person Assist Discharge Recommendations PT Discharge Recommendations Home with 24/7 Assist Available,Home Health,SNF Rehab,Home vs SNF Equipment Needed for Home Before FWW if unsafe without Discharge Transportation Needs at Discharge Private Vehicle,Wheelchair/ Cabulance
[2021-09-26 15:51] LABS: Hematocrit 28.1 % (41-53); Hemoglobin 9.3 g/dL (13.5-17.5); Mean Corpuscular HGB Conc 33.1 % (30-36); Mean Corpuscular Hemoglobin 34.6 PG (26-34); Mean Corpuscular Volume 104.6 fL (80-100); Platelet Count 157 X10^3/uL (150-400); Red Blood Cell Count 2.69 X10^6/uL (4.5-5.9); Red Cell Distribution Width 21.8 % (11.6-14.8); White Blood Cell Count 12.3 X10^3/uL (4.5-11.0)
--- NOTE | 2021-09-26 16:05 | P.PN_ITS ---
Subjective Subjective Date Patient Seen: 09/26/21 Time Patient Seen: 08:00 Interval history: Today he is feeling improved. He is still coughing but less so. He does not feel short of breath. He has not noted blood in his stool. Exam Vital Signs (past 8 hours): - 09/26/21 08:36 09/26/21 11:18 09/26/21 11:33 Temperature 97.5 F L 97.5 F L Pulse Rate 67 68 62 Respiratory Rate 20 16 15 Blood Pressure 155/77 H 155/77 H Pulse Oximetry 92 09/26/21 11:43 09/26/21 14:02 09/26/21 15:34 Temperature 97.9 F 97.3 F L Pulse Rate 64 74 88 Respiratory Rate 14 22 20 Blood Pressure 155/74 H 155/74 H Pulse Oximetry 99 Fraction of Inspired Oxygen 30 Oxygen Delivery Method Nasal Cannula Oxygen Flow Rate 0 Narrative Exam Narrative: GEN: no acute distress PULM: coarse breath sounds bilaterally EXT: trace edema Objective Labs Result Diagrams: 09/26/21 15:46 09/26/21 08:05 Labs: Laboratory Results - last 24 hr 09/24/21 09/26/21 09/26/21 10:48 08:05 08:05 WBC 14.2 H RBC 1.90 L Hgb 6.8 L* Hct 21.0 L MCV 110.6 H MCH 35.9 H MCHC 32.5 RDW 18.7 H Plt Count 133 L Percent Retic Sodium 136 L Potassium 4.7 Chloride 107 Carbon Dioxide 23 BUN 61 H Creatinine 1.84 H Estimated GFR 35.3 L BUN/Creatinine Ratio 33.2 H Glucose 140 H Calcium 9.1 Iron TIBC % Saturation Transferrin Lactate Dehydrogenase Vitamin B12 Folate Blood Type O Positive Antibody Screen Negative Crossmatch See Detail 09/26/21 09/26/21 09/26/21 08:05 08:05 08:05 WBC RBC Hgb Hct MCV MCH MCHC RDW Plt Count Percent Retic 2.2 Sodium Potassium Chloride Carbon Dioxide BUN Creatinine Estimated GFR BUN/Creatinine Ratio Glucose Calcium Iron 44 L TIBC 302 % Saturation 15 L Transferrin 247 Lactate Dehydrogenase 833 H Vitamin B12 > 1000 H Folate 19.5 Blood Type Antibody Screen Crossmatch 09/26/21 15:46 WBC 12.3 H RBC 2.69 L Hgb 9.3 L Hct 28.1 L MCV 104.6 H D MCH 34.6 H MCHC 33.1 RDW 21.8 H Plt Count 157 Percent Retic Sodium Potassium Chloride Carbon Dioxide BUN Creatinine Estimated GFR BUN/Creatinine Ratio Glucose Calcium Iron TIBC % Saturation Transferrin Lactate Dehydrogenase Vitamin B12 Folate Blood Type Antibody Screen Crossmatch [facility] Medical History Adenocarcinoma of right lung, stage 1 (~05/10/20) Anemia Benign prostatic hyperplasia (01/29/12) BPH w urinary obs/LUTS Bradycardia Cellulitis Centrilobular emphysema (12/13/16) Cholesteatoma (09/10/12) Chronic kidney disease (CKD) stage G3a/A1, moderately decreased glomerular filtration rate (GFR) between 45-59 mL/min/1.73 square meter and albuminuria creatinine ratio less than 30 mg/g COPD (chronic obstructive pulmonary disease) DNR (do not resuscitate) Hemorrhagic cerebrovascular accident (CVA) (~2006) Hydronephrosis, left Hyperlipidemia Hypertension Lower urinary tract symptoms (LUTS) Lung cancer Macrocytic anemia (07/06/16) Mild alcohol abuse (03/26/15) Olecranon bursitis Peripheral vascular disease of foot (05/31/17) Pneumonia Primary adenocarcinoma of upper lobe of right lung Sinusitis Stenosis of left femoral artery Stroke Substance abuse Syncope Syncope and collapse (09/10/12) Tobacco use disorder, continuous (09/10/12) Transient cerebral ischemia (04/23/12) Traumatic compression fracture of seventh thoracic vertebra, sequela (10/09/16) Tubular adenoma Urinary retention Surgical History History of carpal tunnel repair (03/02/15) History of cataract removal with insertion of prosthetic lens (02/16/15) History of cataract removal with insertion of prosthetic lens (03/09/15) History of tonsillectomy Status post appendectomy Status post colonoscopy (10/06/09) Status post lobectomy of lung (~04/2020) Status post repair of hydrocele (05/22/11) Family History Brother Lung cancer Father Lung cancer Mother Migraines Social History marital status: number of children: 2 household members: spouse Smoking Status: Current every day smoker Tobacco: How many years used: 69 quit status: considering quitting alcohol intake: current caffeine: Yes Assessment & Plan Assessment & Plan narrative: This is an 84-year-old male with COPD, lung cancer, chronic kidney disease, esophagitis and severe hearing loss who fell at home fracturing ribs 11 and 12 on the right side with resultant pneumonia and hypoxia.? When he presented to the emergency department he was initially saturating in the low 90s but subsequently dropped to the 70s and is now needing high-flow nasal cannula o xygen supplementation. Right Lung Pneumonia, acute -Related to fall and rib fractures with respiratory splinting/shallow breathing -CXR with RML infiltrate, WBC 24.6 on admission, improved to 12.6 -IV Ceftriaxone, Azithromycin -Oxygen by HFNC has been stopped and he is switched to nasal cannula Hypoxemic Respiratory Failure, present on admission.? Active. -HFNC 40 L initially but now down to nasal cannula. DNI/DNR. -IV Solumedrol, Albuterol -Ceftriaxone, Azithromycin IV Anemia, acute -hemoglobin 6.9, no evidence of overt bleeding -ordered for transfusion 1 PRBC, check hemoglobin at 1500 -MCV noted to be elevated -ordered workup with iron studies, folate, b12, ldh, retic count Traumatic Right Rib Fractures - 11 and 12, present on admission.? Active. -pain control with prn Hydrocodone -No pneumothorax seen Severe hearing loss, present on admission. Active. COPD, present on admission.? Chronic. -Started on IV Solumedrol on admission -Albuterol -Oxygen by GA to keep sat >90% CKD stage 3-4 with SYLVIE, present on admission.? -Creatinine 2.57 on admission, follow and hydrate gently with creatinine improved to 1.8 Hypertension, present on admission.? Chronic. -Continue Amlodipine GERD, present on admission.? Chronic. -Continue Omeprazole Hyperlipidemia. present on admission.? Chronic. -Continue Rosuvastatin Time Spent With Patient Critical Care time: I spent a total of [] minutes of critical care time on this patient's care today; this time is exclusive of procedural time. Quality VTE Deep Vein Thrombosis/Pulmonary Embolism Present on Admission: No
--- NOTE | 2021-09-26 16:29 | CM.DANOTE ---
DCP/Assessment: Reviewed chart. Patient is a 85yr old male admitted [facility] with proposed pneumonia. PCP is Valarie Noel. Primary payor is 1)Medicare 2)[employer]. 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 Patient seen by therapy and it is anticipated that patient will need FWW for home use. Patient may also benefit from home health. Spouse reports that patient primarily I in all ADL's. Recently patient underwent some cardiac issues which spouse believes has made patient less mobile. Patient and spouse agreeable to home health if needed. Patient prefers not to go to SNF. P: CM team to follow closely. Anticipate home when stable. S Discharge Planning/Care Management CM Discharge Assessment Start: 09/26/21 13:12 Freq: Status: Active Protocol: Document 09/26/21 13:12 KJS (Rec: 09/26/21 13:24 [facility] [id number]) Discharge Planning Assessment Assigned Customer Engineer YING Clark Contact Information Arely Fredellen (spouse) # [phone] Advance Directives? No History Provided By Patient,Significant Other, Medical Record Prior Living Arrangements House Household Members spouse Independent with ADL's Yes: Per nursing Is patient alert and oriented? Yes Discharge Plan Home Transportation Arrangement Family Referrals Initiated None needed Review Status In Process Next Review Type Continued Stay Review
[2021-09-26] MEDS: THIAMINE 100 MG TABLET PO (17:01)
[2021-09-26] MEDS: ATORVASTATIN 20 MG TABLET 10 MG PO (20:37)
[2021-09-27] VITALS (12 sets, daily range): BP systolic 133–164; BP diastolic 65–78; PULSE 64–69; RESP 16–20; TEMP 35.8–37.3; O2SAT 92–100
[2021-09-27] MEDS: LORazepam 1 MG TABLET PO (00:04)
--- NOTE | 2021-09-27 01:01 | PC.NURSE ---
Pt with increasing CIWA scores. Ativan given without effect. Hospitalist notified, order noted for seroquil PO.
[2021-09-27] MEDS: QUETIAPINE 25 MG TABLET PO (01:10)
[2021-09-27 05:46] LABS: Mean Corpuscular HGB Conc 33.5 % (30-36); Mean Corpuscular Hemoglobin 35.6 PG (26-34); Mean Corpuscular Volume 106.2 fL (80-100); Platelet Count 157 X10^3/uL (150-400); Red Blood Cell Count 2.26 X10^6/uL (4.5-5.9); Red Cell Distribution Width 22.1 % (11.6-14.8); White Blood Cell Count 8.8 X10^3/uL (4.5-11.0)
[2021-09-27 05:55] LABS: BUN Creatinine Ratio 34.6 (6-22); Blood Urea Nitrogen 64 mg/dL (9-20); Calcium 9.2 mg/dL (8.4-10.2); Carbon Dioxide 24 mmol/L (22-32); Chloride 107 mmol/L (98-107); Estimated Glomerular Filt Rate 35.1 mL/min (>60); Glucose 143 mg/dL (80-110); HEMOLYSIS < 15 (0-50); Potassium 4.4 mmol/L (3.4-5.1); Sodium 138 mmol/L (137-145)
[2021-09-27] MEDS: FOLIC ACID 1 MG TABLET PO (09:08)
[2021-09-27] MEDS: THIAMINE 100 MG TABLET PO (09:08)
[2021-09-27] MEDS: predniSONE 20 MG TABLET 40 MG PO (09:08)
[2021-09-27] MEDS: AMLODIPINE 5 MG TABLET PO ×2 (09:08→20:31)
[2021-09-27] MEDS: ASPIRIN 81 MG CHEW TAB PO (09:08)
[2021-09-27] MEDS: MULTIVITAMIN 1 TABLET 1 TAB PO (09:08)
[2021-09-27] MEDS: MAGNESIUM OXIDE 400 MG TABLET PO (09:08)
--- NOTE | 2021-09-27 12:10 | PT-IP ANOTE ---
attempted to work with pt for PT but pt is lethargic and unable to participate at this time. attempted to wake pt up but unsuccessful. will f/u.
[2021-09-27] MEDS: cefTRIAXone 1,000 MG in SODIUM CHLORIDE 0.9% 100 ML 200 ML IV (12:33)
--- NOTE | 2021-09-27 12:37 | ST.IPDYTX ---
Visit Care Team Role Provider Type Valarie Noel MD Primary Care Provider Physician Specialty: Family Practice Address: [address] [place] [address], [address] Phone: Fax: Email: [email or web address] Jeet Fernandez MD Emergency Provider Physician Referring Provider Specialty: Emergency Medicine Address: [address] [place] [address], [id number] Email: [email or web address] Daniele Goodrich MD Admit Provider Physician Attending Provider Specialty: Medical Address: [address] [place] [address], [phone] Email: [email or web address] Dysphagia Treatment [employer] Dysphagia Treatment Start: 09/26/21 15:25 Freq: Status: Active Protocol: Document 09/27/21 11:54 AMY (Rec: 09/27/21 12:24 AMY [id number]) Dysphagia Treatment Session Time Visit Start Time 08:55 Visit Stop Time 09:25 Total Visit Minutes 30 Setting Assessment Location Acute Care Visit Type Note Type Treatment Note Next Note Type Next Note Type Treatment Note Patient Information Identification Type Name,ID Card Subjective Observations The pt was lying in bed asleep , awaking from time to time as this clinician talked with his , who was present bedside. The pt had received Seroquil overnight d/t increased CIWA scores. Drug effects appeared to be still effective. The pt was receiving 2L O2 via NC. His breakfast tray was present but untouched. Pt's reported the pt had normal speech and swallow functions at baseline prior to this injury. Treatment Liquids Trialed Thin Solids Trialed Puree Administration Type Cup Single Sip,Straw,Dependent Feeding Oral Strategies Upright at 90 degrees, Controlled Bite/Sip Size, Dementia Strategies Pharyngeal Strategies Sitting Upright (90 deg) Additional Dysphagia Treatment Verbal and tactile (laryngeal Strategies rub) prompts Treatment Activities The pt was arousable to voice and tactile stimuli. He made eye contact with the clinician and was somewhat communicative, stating that he felt alright and answered yes to inquiries if he was hungry and would like breakfast. His speech was unintelligible when he attempted to talk more extensively. He was unable to verbally identify his , though appeared to recognize her. At end of session, attempts to use a picture/word communication board for pt to communicate about comfort levels and desired bed position were not effective, as the pt closed his eyes and fell asleep. While pt was awake, COL[employer] attempted ongoing swallow evaluation. The pt orally accepted a small tsp of applesauce with delayed swallow trigger. When given a second teaspoon of applesauce, the pt again orally accepted it and manipulated the bolus in the oral cavity but with significantly greater delayed swallow trigger. Multiple verbal and tactile prompts were required before the pt swallowed x2. Moderate oral residue remained. Attempted to give the pt sips of water via straw and cup to assist bolus clearance. He did not orally respond to the presence of the utensils. His voice and breath became wet sounding, indicating bolus escape to pharynx and possible aspiration. This eventually triggered a cough. The pt was moderately responsive to verbal prompts to cough and swallow. Breath and vocal sounds cleared, and trials were discontinued for pt safety. Nsg was notified that the pt was not appropriate for oral intake and recommended oral meds be held until he is more awake and alert. Assessment Patient Response to Treatment Fair Rehab Potential Good Assessment of Improvement Significantly increased confusion as compared to yesterday, likely contributed by drug effect. The pt was unable to effectively participate in oral consumption d/t variable confusion. Intelligible speech was limited to words and phrases. The pt became increasingly confused with oral intake, and trials were discontinued and medication withheld for pt safety. Diet Recommendations Recommendations Continue Current Diet Comment Do not consume food, liquids or medication unless fully awake and alert. Liquids Order Thin Diet Order Mechanical Soft Medication Recommendations As Tolerated Aspiration Precautions Recommended Precautions Upright at 90 Degrees,Small Bites/Sips,Check for Pocketing Additional Precautions Pt must be fully awake and alert for oral intake. Treatment Plan Placement Recommendation after Discharge Home,Home with Home Health, Home Care Appropriate for Continued Therapy Yes Therapy Recommendations Continue ongoing assessment of swallow, speech and language, cognitive communication skills as indicated. Dysphagia Goals 1. Pt will follow safe swallow strategies with min prompts to reduce risk of aspiration. 2. Pt will tolerate least restrictive diet to meet his nutrition and hydration needs.
--- NOTE | 2021-09-27 13:50 | PT.IPTN ---
Current Diagnoses Pneumonia, unspecified organism (09/24/21) Physical Therapy Treatment Note M2 PT-IP Current Condition Start: 09/26/21 08:30 Freq: NEEDED Status: Active Protocol: Document 09/26/21 15:50 AW (Rec: 09/26/21 16:55 AW [id number]) Physical Therapy Current Condition Current Condition Evaluation Date 09/26/21 Treatment Diagnosis pneumonia, rib fractures, impaired gait and mobility Onset Date 09/22/21 M3 PT-IP Subjective Start: 09/26/21 08:30 Freq: NEEDED Status: Active Protocol: Document 09/27/21 13:50 AB (Rec: 09/27/21 15:53 AB [id number]) Subjective Physical Therapy Visit Type Type Treatment Note Visit Start Time 13:50 Visit Stop Time 14:15 Total Visit Minutes 25 Number of LACE WEAVER Visits 0 M4 PT-IP Mobility and Gait Start: 09/26/21 08:30 Freq: NEEDED Status: Active Protocol: Document 09/27/21 13:50 AB (Rec: 09/27/21 15:53 AB [id number]) PT-Bed Mobility Assessment Supine to Sit Supine to Sit Minimal Assistance,Head of Bed Elevated,Bedrails PT-Transfer Assessment Sit to and From Stand Sit to and from Stand Maximum Assistance,1 Person Assistance,Use of Upper Extremities Equipment Transfer Assistive Device Gait Belt,Front Wheeled Walker Orthotic/Prosthetic Devices or Brace: No Transfers Transfer Destination Chair Transfer Ability Level of Assist Maximum Assistance,1 Person Assistance,Use of Upper Extremities Comments Mobility Comments pt is more awake this afternoon and agreed to get out of bed. completed supine to sit with HOB elevated min A and cues. pt with confusion and follows one step commands inconsistently. completed sit to stand max A and max cues with LOB to the R. completed step transfer to chair using FWW max A and max cues. continues to has LOB and cues provided but pt with decrease safety awareness. O2 sat 92%. completed sit to stand from chair max A and took ~ 2 ft using FWW max A and instructed to step backwards to chair max A. pt with very unsteady gait and difficulty following instructions. positioned pt on chair. call light and table placed within reach. chair alarm on. Gait Assessment Gait Gait Assistance Required: Maximum Assistance,1 Person Assist Distance (Feet) 3 Able to Maintain Weight Bearing Status Yes During Gait Assistive Devices Assistive Device Gait Belt,Front Wheeled Walker Orthotic/Prosthetic Devices or Brace: No Gait Deviations General Gait Pattern Decreased Stride Length, Decreased Feet Clearance,Step- to Gait Factors Limiting Gait Function Factors Limiting Gait Function Decreased Activity Tolerance, Decreased Strength,Difficulty Following Directions,Poor Balance,Poor Safety Awareness M5 PT-IP Objective Assessments Start: 09/26/21 08:30 Freq: NEEDED Status: Active Protocol: Document 09/26/21 15:50 AW (Rec: 09/26/21 16:55 AW [id number]) Orientation Orientation/Cognition Level of Alertness Alert Orientation Name Language Function Ability Hard of Hearing Safety Awareness Decreased Safety Awareness Comments Pt is oriented to his name but not to , month, year, place, or situation. Gross Range of Motion Lower Extremity ROM Assessment Within Functional Limits Strength Lower Extremity Strength Assessment Bilaterally Impaired Comments Strength Comments Pt has difficulty following commands for formal strength assessment but is grossly 4/5 to 4+/5 BLE. 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 M6 PT-IP Treatment Start: 09/26/21 08:30 Freq: NEEDED Status: Active Protocol: Document 09/27/21 13:50 AB (Rec: 09/27/21 15:53 AB [id number]) Physical Therapy Treatment Education Education Provided Safety M7 PT-IP Assessment and Plan Start: 09/26/21 08:30 Freq: NEEDED Status: Active Protocol: Document 09/27/21 13:50 AB (Rec: 09/27/21 15:53 AB [id number]) PT Summary Assessment and Plan Potential Rehabilitation Potential Fair Summary Impairments Pain,ROM,Strength,Balance, Coordination,Sensation,Tone, Cognition,Bed Mobility, Transfers,Gait,Activity Tolerance Progress Towards Goals Slow Progress due to Medical Issues,Slow Progress due to Activity Tolerance Assessment Summary pt requiring max A and max cues with LOB to the R and with unsteady gait and difficulty following directions. pt will require SNF rehab to improve mobility. Goals Bed Mobility Goal Independent Transfer Goal Independent Gait Goal Independent,Front Wheel Walker Gait Distance 200 Other Goals - up/down 2 steps without rail SBA - up/down 13 steps with left rail ascending SBA - progress gait to IND without AD Days to Meet Goals 5 Frequency of Treatment Frequency Of Treatment Once a Day Treatment Plan Physical Therapy Treatment Plan Bed Mobility Training,Transfer Training,Gait Training, Therapeutic Exercise,Balance Retraining,Discharge Planning, Neuromuscular Re-ed, Coordination Retraining Precautions Other Precautions falls risk Recommendations To Nursing Amount of Assist Needed 1 Person Assist Discharge Recommendations PT Discharge Recommendations SNF Rehab Transportation Needs at Discharge Wheelchair/Cabulance
[2021-09-27] MEDS: AZITHROMYCIN 500 MG in DEXTROSE 5% IN WATER 250 ML IV (14:00)
--- NOTE | 2021-09-27 16:09 | ST.IPDYTX ---
Visit Care Team Role Provider Type Valarie Noel MD Primary Care Provider Physician Specialty: Family Practice Address: [address] [place] [address], [address] Phone: Fax: Email: [email or web address] Jeet Fernandez MD Emergency Provider Physician Referring Provider Specialty: Emergency Medicine Address: [address] [place] [address], [id number] Email: [email or web address] Daniele Goodrich MD Admit Provider Physician Attending Provider Specialty: Medical Address: [address] [place] [address], [phone] Email: [email or web address] ELECTRICAL POWER ENGINEER Dysphagia Treatment ELECTRICAL POWER ENGINEER Dysphagia Treatment Start: 09/26/21 15:25 Freq: Status: Active Protocol: Document 09/27/21 15:44 AMY (Rec: 09/27/21 16:09 AMY [email or web address]) Dysphagia Treatment Session Time Visit Start Time 12:50 Visit Stop Time 13:25 Total Visit Minutes 35 Setting Assessment Location Acute Care Visit Type Note Type Treatment Note Next Note Type Next Note Type Treatment Note Patient Information Identification Type Name,ID Card Subjective Observations Nsg informed this ELECTRICAL POWER ENGINEER that the pt was awake and more alert at lunch time. Pt was seen again for swallow assessment. He was sitting up in bed, awake and much more alert than when seen this morning. He expressed being hungry and interested in lunch. Pt attempted to move himself up in bed but was unable. He was repositioned upright in bed by staff. Throughout the session, the pt displayed confusion and attempted conversation but with unintelligible speech interspersed with islands of clear words and phrases. Additionally, he was grasping with fingers at the air and non-existent objects, occasionally resting his fingers in his food. Treatment Liquids Trialed Thin,Ucon Solids Trialed Puree,Dysphagia Mechanical Administration Type Tea Spoon,Cup Single Sip,Straw ,Dependent Feeding Oral Strategies Upright at 90 degrees,Dementia Strategies Pharyngeal Strategies Sitting Upright (90 deg),Small Bites and Sips,Alternate Liquids/Solids Treatment Activities The pt attempted to self-feed. Required assistance getting food onto spoon and hand-over- hand assistance bringing spoon and cup to mouth. Pt did not exhibit adequate strength to hold the cup of liquid. The pt tolerated mashed potato with gravy with extended oral prep phase, slow a/p propulsion, and delayed swallow trigger. Moderate oral residue was noted, requiring multiple swallows and/or liquid wash. Chicken and steamed carrots were cut into dysphagia mechanical texture, and the pt tolerated those in similar nature. No overt s/sx of aspiration were noted with intake of moist, soft solids in small amounts. The pt exhibited poor oral motor coordination of thin liquids. When taken via straw, approximately 1/2 of what was drawn to his mouth was then washed back to container through the straw. When given liquids via cup, the pt orally accepted the cup but not the liquid. After disorganized consumption from straw, the pt produced a large cough, indicative of laryngeal penetration and/or aspiration. Liquids were modified to nectar thickness, which were better controlled by the pt and without overt s/sx of aspiration. Recommend downgrade of diet and liquids. The pt was given 3 small tablets of medication whole with pureed carrier. The pt attempted x2 to spit out the pills. He was moderately responsive to oral instructions to swallow the pills, assisted with liquid wash. Recommend meds crushed in carrier. Assessment Patient Response to Treatment Fair Rehab Potential Good Assessment of Improvement The pt was more alert but continued with significant confusion, greater than yesterday at lunch. Pt was unable to effectively self- feed, requiring both feeding assistance and verbal prompts for swallow. Poor oral motor control resulted in extended mastication and oral residue with intake of solids, but safe tolerance of dysphagia mechanical textures. More advanced textures were not trialed for pt safety. Poor control of thin liquids increases the pt's risk of aspiration. NTLs were better tolerated and are recommended. Additionally meds are recommended to be crushed to reduce confusion and promote consumption. Diet Recommendations Recommendations Downgrade Diet Order Liquids Order Ucon Diet Order Dysphagia Mechanical Medication Recommendations Crushed Comments Strict oral care. Additional Dietary Needs 1:1 Supervision,1:1 Assistance Aspiration Precautions Recommended Precautions Upright at 90 Degrees, Alternate Liquids/Solids,Small Bites/Sips Treatment Plan Placement Recommendation after Discharge Long-Term Facility,Home with Home Health Appropriate for Continued Therapy Yes Therapy Recommendations Continue ongoing assessment of swallow, speech and language, cognitive communication skills as indicated. Dysphagia Goals 1. Pt will follow safe swallow strategies with min prompts to reduce risk of aspiration. 2. Pt will tolerate least restrictive diet to meet his nutrition and hydration needs.
--- NOTE | 2021-09-27 17:17 | P.PN_ITS ---
Subjective Subjective Date Patient Seen: 09/27/21 Interval history: 84-year-old male with a history of COPD, lung cancer, chronic kidney disease admitted to the hospital with pneumonia and hypoxia. He is no longer hypoxic, however the patient does have significant coarse rhonchi. He has no specific complaints today Exam Vital Signs (past 8 hours): - 09/27/21 10:25 09/27/21 12:00 09/27/21 16:00 Temperature 97.5 F L 97.8 F Pulse Rate 69 64 65 Respiratory Rate 18 17 Blood Pressure 161/71 H 149/75 H Pulse Oximetry 100 99 99 Fraction of Inspired Oxygen 30 Oxygen Delivery Method Nasal Cannula Oxygen Flow Rate 2 Narrative Exam Narrative: Elderly male lying in bed Resp Other: Decreased breath sounds, coarse bilaterally, with prolonged end-expiratory phase Cardio Other: Cardiac exam: Regular rate rhythm normal S1-S2 with a 3/6 systolic ejection murmur GI Other: Abdomen: Soft nontender nondistended Extrem Other: Extremity no edema Objective Labs Result Diagrams: 09/27/21 05:27 09/27/21 05:27 Labs: Laboratory Results - last 24 hr 09/27/21 09/27/21 05:27 05:27 WBC 8.8 RBC 2.26 L Hgb 8.0 L Hct 24.0 L MCV 106.2 H MCH 35.6 H MCHC 33.5 RDW 22.1 H Plt Count 157 Sodium 138 Potassium 4.4 Chloride 107 Carbon Dioxide 24 BUN 64 H Creatinine 1.85 H Estimated GFR 35.1 L BUN/Creatinine Ratio 34.6 H Glucose 143 H Calcium 9.2 PFSH Medical History Adenocarcinoma of right lung, stage 1 (~05/10/20) Anemia Benign prostatic hyperplasia (01/29/12) BPH w urinary obs/LUTS Bradycardia Cellulitis Centrilobular emphysema (12/13/16) Cholesteatoma (09/10/12) Chronic kidney disease (CKD) stage G3a/A1, moderately decreased glomerular filtration rate (GFR) between 45-59 mL/min/1.73 square meter and albuminuria creatinine ratio less than 30 mg/g COPD (chronic obstructive pulmonary disease) DNR (do not resuscitate) Hemorrhagic cerebrovascular accident (CVA) (~2006) Hydronephrosis, left Hyperlipidemia Hypertension Lower urinary tract symptoms (LUTS) Lung cancer Macrocytic anemia (07/06/16) Mild alcohol abuse (03/26/15) Olecranon bursitis Peripheral vascular disease of foot (05/31/17) Pneumonia Primary adenocarcinoma of upper lobe of right lung Sinusitis Stenosis of left femoral artery Stroke Substance abuse Syncope Syncope and collapse (09/10/12) Tobacco use disorder, continuous (09/10/12) Transient cerebral ischemia (04/23/12) Traumatic compression fracture of seventh thoracic vertebra, sequela (10/09/16) Tubular adenoma Urinary retention Surgical History History of carpal tunnel repair (03/02/15) History of cataract removal with insertion of prosthetic lens (02/16/15) History of cataract removal with insertion of prosthetic lens (03/09/15) History of tonsillectomy Status post appendectomy Status post colonoscopy (10/06/09) Status post lobectomy of lung (~04/2020) Status post repair of hydrocele (05/22/11) Family History Brother Lung cancer Father Lung cancer Mother Migraines Social History marital status: number of children: 2 household members: spouse Smoking Status: Current every day smoker Tobacco: How many years used: 69 quit status: considering quitting alcohol intake: current caffeine: Yes Assessment & Plan Assessment & Plan narrative: This is an 84-year-old male with COPD, lung cancer, chronic kidney disease, esophagitis and severe hearing loss who fell at home fracturing ribs 11 and 12 o n the right side with resultant pneumonia and hypoxia.? When he presented to the emergency department he was initially saturating in the low 90s but subsequently dropped to the 70s and is now needing high-flow nasal cannula oxygen supplementation. Right Lung Pneumonia, acute -Related to fall and rib fractures with respiratory splinting/shallow breathing -CXR with RML infiltrate, WBC 24.6 on admission, improved to 12.6 -IV Ceftriaxone, Azithromycin -Oxygen by HFNC has been stopped and he is switched to nasal cannula -will continue to taper oxygen as tolerated Hypoxemic Respiratory Failure, present on admission.? Active. -HFNC 40 L initially but now down to nasal cannula. DNI/DNR. -IV Solumedrol, Albuterol -Ceftriaxone, Azithromycin IV -will switch to po prednisone and po antibiotics Anemia, acute -hemoglobin 6.9, no evidence of overt bleeding -ordered for transfusion 1 PRBC, check hemoglobin at 1500 -MCV noted to be elevated -ordered workup with iron studies, folate, b12, ldh, retic count Traumatic Right Rib Fractures - 11 and 12, present on admission.? Active. -pain control with prn Hydrocodone -No pneumothorax seen Severe hearing loss, present on admission. Active. COPD, present on admission.? Chronic. 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 -Creatinine 2.57 on admission, follow and hydrate gently with creatinine improved to 1.8 -avoid nephrotoxic agents -will follow renal function closely Hypertension, present on admission.? Chronic. -Continue Amlodipine GERD, present on admission.? Chronic. -Continue Omeprazole Hyperlipidemia. present on admission.? Chronic. -Continue Rosuvastatin Possible discharge in 1-2 days Time Spent With Patient Critical Care time: I spent a total of [] minutes of critical care time on this patient's care today; this time is exclusive of procedural time. Quality VTE Deep Vein Thrombosis/Pulmonary Embolism Present on Admission: No
[2021-09-27] MEDS: IRON SUCROSE 200 MG in SODIUM CHLORIDE 0.9% 100 ML 220 ML IV (17:53)
[2021-09-27 18:35] LABS: Fractionated Inspired Oxygen 21; HCO3 ABG 28 mmol/L (22-26); Oxygen Saturation ABG 90 % (95-100); PCO2 ABG 46.1 mmHg (35-45); PO2 ABG 61 mmHg (80-100); TCO2 ABG 29 mmol/L (21-31); pH ABG 7.39 (7.35-7.45)
[2021-09-27] MEDS: ATORVASTATIN 20 MG TABLET 10 MG PO (20:30)
[2021-09-27] MEDS: QUETIAPINE 25 MG TABLET 12.5 MG PO (20:31)
[2021-09-28] VITALS (8 sets, daily range): BP systolic 144–158; BP diastolic 72–77; PULSE 61–68; RESP 16–24; TEMP 35.6–36.7; O2SAT 95–100
[2021-09-28] MEDS: QUETIAPINE 25 MG TABLET 12.5 MG PO (00:19)
[2021-09-28] MEDS: levoFLOXacin 250 MG TABLET PO (06:02)
[2021-09-28] MEDS: PANTOPRAZOLE DR 20 MG TABLET PO (06:02)
[2021-09-28] MEDS: LORazepam 2 MG/ML INJ (07:33)
--- NOTE | 2021-09-28 08:43 | SLP.IPNOTE ---
Pt sleeping and unable to participate in speech therapy treatment this morning. Nsg reported pt ate 100% of evening meal independently yesterday, which is remarkable improvement from earlier in the day and likely indicative of effects of comorbidities and/or drug effects. Will continue to monitor, follow up later in the day as able.
--- NOTE | 2021-09-28 14:30 | PT.IPTN ---
Current Diagnoses Pneumonia, unspecified organism (09/24/21) Physical Therapy Treatment Note M2 PT-IP Current Condition Start: 09/26/21 08:30 Freq: NEEDED Status: Active Protocol: Document 09/28/21 14:15 SP (Rec: 09/28/21 14:43 SP [id number]) Physical Therapy Current Condition Current Condition Evaluation Date 09/26/21 Treatment Diagnosis pneumonia, rib fractures, impaired gait and mobility Onset Date 09/22/21 M3 PT-IP Subjective Start: 09/26/21 08:30 Freq: NEEDED Status: Active Protocol: Document 09/28/21 14:15 SP (Rec: 09/28/21 14:43 SP [id number]) Subjective Physical Therapy Visit Type Type Treatment Note Visit Start Time 14:15 Visit Stop Time 14:30 Total Visit Minutes 15 Notes Nurse in room assisted as needed for mobility as 2nd person assist. Number of BAR MACHINE OPERATOR Visits 1 Physical Therapy Visit Comments Patient Comments Pt is willing to participate with PT, head nod and verbalized yes. Therapy Pain Assessment Pain When Pain Assessed During Mobility Pain Present Pain Present Pain Reported Location Generalized Scale Used not quantified Pain Behaviors Facial Grimacing Pain Management Techniques Distraction,Modification of Treatment,Re-positioning M4 PT-IP Mobility and Gait Start: 09/26/21 08:30 Freq: NEEDED Status: Active Protocol: Document 09/28/21 14:15 SP (Rec: 09/28/21 14:43 SP [id number]) PT-Bed Mobility Assessment Supine to Sit Supine to Sit Contact Guard Assistance,1 Person Assistance,Head of Bed Elevated,Bedrails Scooting Scooting to Edge of Bed Standby Assistance PT-Transfer Assessment Sit to and From Stand Sit to and from Stand Moderate Assistance,Maximum Assistance,1 Person Assistance ,Use of Upper Extremities Equipment Transfer Assistive Device Gait Belt,Front Wheeled Walker Transfers Transfer Destination Chair Transfer Technique Stand Step Pivot Transfer Ability Level of Assist Maximum Assistance,1 Person Assistance,Use of Upper Extremities Comments Mobility Comments Elevated supine>sit CGA- MIn A for LLE to EOB with cues for sequencing LEs and trunk righting then scoot to EOB using BUE. Pt able to sit unsupported at EOB, unableto understand comments. SIt>stand Max A x1, CGA 2nd person for safety. SPT bed>chair with 1 step cues for sequencing BLE and support for FWW repositioning Lateral trunk Lean L cues and support to R repositioning then back stepping fully. Max A for slow descent. Max cues for reaching back, unableto provided hand over hand due to emt b had on FWW and retro leaning to sit. Will continue to work on proper hand placement in future tx. BAR MACHINE OPERATOR provided pillows under BLE with leg restselevated, nurse supported BLE to place pillow. Pt had chair alarm and all needs in reach. Nurse was providing lunch and all telemetry and call light needed when left. Gait Assessment Gait Gait Assistance Required: Maximum Assistance,1 Person Assist Distance (Feet) 3 Able to Maintain Weight Bearing Status Yes During Gait Assistive Devices Assistive Device Gait Belt,Front Wheeled Walker Orthotic/Prosthetic Devices or Brace: No Gait Deviations General Gait Pattern Antalgic,Decreased Stride Length,Decreased Feet Clearance,Flexed Trunk,Lateral Trunk Lean,Narrow Based Gait, Step-to Gait Factors Limiting Gait Function Factors Limiting Gait Function Decreased Activity Tolerance, Decreased Strength,Difficulty Following Directions,Limited Range of Motion,Poor Balance, Poor Safety Awareness Comments Gait Comments Small AMBROSIO step to gait patterning, lateral trunk L lean w/FWW Max A x1 CGA 2nd person. Stair Climbing Assessment Comments Stair Climbing Comments Not assessed. Pt not safe for stairs assessment at this time . PT-Balance Assessment Sitting Balance and Reactions Static Sitting Balance Ability Good Dynamic Sitting Balance Ability Fair Standing Balance and Reactions Static Standing Balance Ability Poor Dynamic Standing Balance Ability Poor Device Used FWW M5 PT-IP Objective Assessments Start: 09/26/21 08:30 Freq: NEEDED Status: Active Protocol: Document 09/26/21 15:50 AW (Rec: 09/26/21 16:55 AW [id number]) Orientation Orientation/Cognition Level of Alertness Alert Orientation Name Language Function Ability Hard of Hearing Safety Awareness Decreased Safety Awareness Comments Pt is oriented to his name but not to , month, year, place, or situation. Gross Range of Motion Lower Extremity ROM Assessment Within Functional Limits Strength Lower Extremity Strength Assessment Bilaterally Impaired Comments Strength Comments Pt has difficulty following commands for formal strength assessment but is grossly 4/5 to 4+/5 BLE. 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 M6 PT-IP Treatment Start: 09/26/21 08:30 Freq: NEEDED Status: Active Protocol: Document 09/28/21 14:15 SP (Rec: 09/28/21 14:43 SP [id number]) Physical Therapy Treatment Education Education Provided Safety M7 PT-IP Assessment and Plan Start: 09/26/21 08:30 Freq: NEEDED Status: Active Protocol: Document 09/28/21 14:15 SP (Rec: 09/28/21 14:43 SP [id number]) PT Summary Assessment and Plan Potential Rehabilitation Potential Fair Status of Condition at Evaluation Evolving Summary Impairments Pain,ROM,Strength,Balance, Coordination,Sensation,Tone, Cognition,Bed Mobility, Transfers,Gait,Activity Tolerance Progress Towards Goals Slow Progress due to Medical Issues,Slow Progress due to Activity Tolerance Assessment Summary Pt requires CGA- Min A for elevated bed mob, Max A x1 A of 2nd person for safety during transfers w/ FWW, 1 step cues required for mobility. Pt will requires SNF rehab to improve functional mobility. Goals Bed Mobility Goal Independent Transfer Goal Independent Gait Goal Independent,Front Wheel Walker Gait Distance 200 Other Goals - up/down 2 steps without rail SBA - up/down 13 steps with left rail ascending SBA - progress gait to IND without AD Days to Meet Goals 5 Frequency of Treatment Frequency Of Treatment Once a Day Treatment Plan Physical Therapy Treatment Plan Bed Mobility Training,Transfer Training,Gait Training, Therapeutic Exercise,Balance Retraining,Discharge Planning, Neuromuscular Re-ed, Coordination Retraining Other Recommendations and Next Treatment bed mob, transfers w/FWW, gait Focus if able and safe w/ FWW Precautions Other Precautions falls risk Recommendations To Nursing Amount of Assist Needed 2 Person Assist Discharge Recommendations PT Discharge Recommendations SNF Rehab Transportation Needs at Discharge Wheelchair/Cabulance
--- NOTE | 2021-09-28 15:34 | ST.IPDYTX ---
Visit Care Team Role Provider Type Valarie Noel MD Primary Care Provider Physician Specialty: Family Practice Address: [address] [place] [address], [id number] Phone: Fax: Email: [email or web address] Jeet Fernandez MD Emergency Provider Physician Referring Provider Specialty: Emergency Medicine Address: [address] [place] [address], [id number] Email: [email or web address] Daniele Goodrich MD Admit Provider Physician Attending Provider Specialty: Medical Address: [address] [place] [address], [id number] Email: [email or web address] UTILITY SYSTEM REPAIRER Dysphagia Treatment UTILITY SYSTEM REPAIRER Dysphagia Treatment Start: 09/26/21 15:25 Freq: Status: Active Protocol: Document 09/28/21 15:15 AMY (Rec: 09/28/21 15:33 AMY [id number]) Dysphagia Treatment Session Time Visit Start Time 14:40 Visit Stop Time 15:10 Total Visit Minutes 30 Setting Assessment Location Acute Care Visit Type Note Type Treatment Note Next Note Type Next Note Type Treatment Note Patient Information Identification Type Name,ID Card Subjective Observations Pt was awake and sitting up in chair with lunch tray. He was again sedated overnight and still with slow movements, confusion and minimally intelligible speech throughout the session. Nsg reported increased alertness last night at dinner and pt self-fed and consumed 100% of his evening meal without s/sx of aspiration. Treatment Liquids Trialed Thin,[place] Solids Trialed Puree,Dysphagia Mechanical Administration Type Tea Spoon,Cup Single Sip,Straw ,Dependent Feeding Oral Strategies Upright at 90 degrees,Dementia Strategies Pharyngeal Strategies Sitting Upright (90 deg),Small Bites and Sips,Alternate Liquids/Solids Additional Dysphagia Treatment Verbal and tactile (laryngeal Strategies rub) prompts Treatment Activities Pt tolerated small bites of pureed and dysphagia mechanical texture cut into very small pieces with slow oral prep phase, occasional bolus holding, and frequent prompts to swallow. Assistance was required to load utensil, and then the pt was able to self-feed solids. He required [id number] assistance with glass. He was unable to drink from a glass, breathing in and out of it vs drawing in liquid. Straw use prompted improved intake and swallow of NTLs. Pt produced one strong productive cough, unclear if from airway penetration of food or liquid or if from other pulmonary condition. No other overt s/sx of aspiration were observed. The pt was intermittently somnolent but able to be awakened by voice or touch. His arrived during the session and feedback and recommendations were provided to her. The pt appeared to recognize her but was unable to state her name. He exhibited significant confusion, grasping at the air and talking to his son, Gamaliel , who was not present. His speech was largely unintelligible to this clinician. understood more and noted the pt frequently referred to persons who were not present. She continued to feed the pt after this clinician left. Assessment Patient Response to Treatment Fair Rehab Potential Good Assessment of Improvement The pt's presentation is consistent with yesterday's presentation at lunch. Pt continues with significant confusion and requires feeding assistance. Oral prep and swallow phases are slow, often requiring verbal prompting, to which the pt was mildly more responsive today than yesterday. Swallow safety is highly dependent on the pt's level of alertness. Will continue to follow. Diet Recommendations Recommendations Downgrade Diet Order Comment Do not consume food, liquids or medication unless fully awake and alert. Liquids Order Neosho Diet Order Dysphagia Mechanical Medication Recommendations Crushed Comments Strict oral care. Additional Dietary Needs 1:1 Supervision,1:1 Assistance Aspiration Precautions Recommended Precautions Upright at 90 Degrees, Alternate Liquids/Solids,Small Bites/Sips Additional Precautions Pt must be fully awake and alert for oral intake. Treatment Plan Placement Recommendation after Discharge Half-Way Facility,Home with Home Health Appropriate for Continued Therapy Yes Therapy Recommendations Contiue ongoing assessment of swallow, speech and language, cognitive communication skills as indicated. Dysphagia Goals 1. Pt will follow safe swallow strategies with min prompts to reduce risk of aspiration. 2. Pt will tolerate least restrictive diet to meet his nutrition and hydration needs.
[2021-09-28] MEDS: AMLODIPINE 5 MG TABLET PO ×2 (17:40→21:02)
[2021-09-28] MEDS: predniSONE 20 MG TABLET 40 MG PO (17:41)
[2021-09-28] MEDS: ASPIRIN 81 MG CHEW TAB PO (17:41)
--- NOTE | 2021-09-28 18:10 | P.PN_ITS ---
Subjective Subjective Date Patient Seen: 09/28/21 Interval history: 85-year-old gentleman with severe sundowning/dementia admitted for COPD, pneumonia hypoxia. Apparently the patient got quite agitated last evening. Was given additional doses of Seroquel and Ativan. He has been unresponsive today. Exam Vital Signs (past 8 hours): - 09/28/21 10:52 09/28/21 14:13 09/28/21 15:51 Temperature 98.0 F Pulse Rate 65 61 Respiratory Rate 18 Blood Pressure 154/72 H Pulse Oximetry 95 100 Fraction of Inspired Oxygen 30 Oxygen Delivery Method Nasal Cannula Oxygen Flow Rate 3 Narrative Exam Narrative: Sedated elderly gentleman arousable Resp Other: Decreased breath sounds Cardio Other: Regular rate and rhythm normal S1-S2 GI Other: Abdomen soft nontender Extrem Other: Extremity no edema Objective Labs Result Diagrams: 09/27/21 05:27 09/27/21 05:27 Labs: Laboratory Results - last 24 hr 09/27/21 18:20 ABG pH 7.39 ABG pCO2 46.1 H ABG pO2 61 L ABG HCO3 28 H ABG Total CO2 29 ABG O2 Saturation 90 L ABG Base Excess 3.0 H FiO2 21 PFSH Medical History Adenocarcinoma of right lung, stage 1 (~05/10/20) Anemia Benign prostatic hyperplasia (01/29/12) BPH w urinary obs/LUTS Bradycardia Cellulitis Centrilobular emphysema (12/13/16) Cholesteatoma (09/10/12) Chronic kidney disease (CKD) stage G3a/A1, moderately decreased glomerular filtration rate (GFR) between 45-59 mL/min/1.73 square meter and albuminuria cr eatinine ratio less than 30 mg/g COPD (chronic obstructive pulmonary disease) DNR (do not resuscitate) Hemorrhagic cerebrovascular accident (CVA) (~2006) Hydronephrosis, left Hyperlipidemia Hypertension Lower urinary tract symptoms (LUTS) Lung cancer Macrocytic anemia (07/06/16) Mild alcohol abuse (03/26/15) Olecranon bursitis Peripheral vascular disease of foot (05/31/17) Pneumonia Primary adenocarcinoma of upper lobe of right lung Sinusitis Stenosis of left femoral artery Stroke Substance abuse Syncope Syncope and collapse (09/10/12) Tobacco use disorder, continuous (09/10/12) Transient cerebral ischemia (04/23/12) Traumatic compression fracture of seventh thoracic vertebra, sequela (10/09/16) Tubular adenoma Urinary retention Surgical History History of carpal tunnel repair (03/02/15) History of cataract removal with insertion of prosthetic lens (02/16/15) History of cataract removal with insertion of prosthetic lens (03/09/15) History of tonsillectomy Status post appendectomy Status post colonoscopy (10/06/09) Status post lobectomy of lung (~04/2020) Status post repair of hydrocele (05/22/11) Family History Brother Lung cancer Father Lung cancer Mother Migraines Social History marital status: number of children: 2 household members: spouse Smoking Status: Current every day smoker Tobacco: How many years used: 69 quit status: considering quitting alcohol intake: current caffeine: Yes Assessment & Plan Assessment & Plan narrative: This is an 84-year-old male with COPD, lung cancer, chronic kidney disease, esophagitis and severe hearing loss who fell at home fracturing ribs 11 and 12 on the right side with resultant pneumonia and hypoxia.? When he presented to the emergency department he was initially saturating in the low 90s but subsequently dropped to the 70s and is now needing high-flow nasal cannula oxygen supplementation. Right Lung Pneumonia, acute -Related to fall and rib fractures with respiratory splinting/shallow breathing -CXR with RML infiltrate, WBC 24.6 on admission, improved to 12.6 -IV Ceftriaxone, Azithromycin -Oxygen by HFNC has been stopped and he is switched to nasal cannula -will continue to taper oxygen as tolerated Hypoxemic Respiratory Failure, present on admission.? Active. -HFNC 40 L initially but now down to nasal cannula. DNI/DNR. -IV Solumedrol, Albuterol -Ceftriaxone, Azithromycin IV -will switch to po prednisone and po antibiotics Anemia, acute -hemoglobin 6.9, no evidence of overt bleeding -ordered for transfusion 1 PRBC, check hemoglobin at 1500 -MCV noted to be elevated -ordered workup with iron studies, folate, b12, ldh, retic count Traumatic Right Rib Fractures - 11 and 12, present on admission.? Active. -pain control with prn Hydrocodone -No pneumothorax seen Severe hearing loss, present on admission. Active. COPD, present on admission.? Chronic. 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 -Creatinine 2.57 on admission, follow and hydrate gently with creatinine improve d to 1.8 -avoid nephrotoxic agents -will follow renal function closely -d/c leija Hypertension, present on admission.? Chronic. -Continue Amlodipine GERD, present on admission.? Chronic. -Continue Omeprazole\ Delerieum -will adjust medications Disposition Patient will need SNF at discharge Time Spent With Patient Critical Care time: I spent a total of [] minutes of critical care time on this patient's care today; this time is exclusive of procedural time. Quality VTE Deep Vein Thrombosis/Pulmonary Embolism Present on Admission: No
[2021-09-28] MEDS: ATORVASTATIN 20 MG TABLET 10 MG PO (21:03)
[2021-09-28] MEDS: QUETIAPINE 25 MG TABLET PO (21:03)
[2021-09-29 03:00] VITALS: BP 151/74; PULSE 65; RESP 17; TEMP 36.6; O2SAT 99
[2021-09-29 05:43] LABS: BUN Creatinine Ratio 35.5 (6-22); Blood Urea Nitrogen 43 mg/dL (9-20); Calcium 9.5 mg/dL (8.4-10.2); Carbon Dioxide 33 mmol/L (22-32); Chloride 102 mmol/L (98-107); Estimated Glomerular Filt Rate 57.3 mL/min (>60); Glucose 134 mg/dL (80-110); HEMOLYSIS 42 (0-50); Potassium 4.8 mmol/L (3.4-5.1); Sodium 136 mmol/L (137-145)
[2021-09-29] MEDS: levoFLOXacin 250 MG TABLET PO (06:20)
[2021-09-29] MEDS: PANTOPRAZOLE DR 20 MG TABLET PO (06:20)
[2021-09-29 07:54] VITALS: BP 122/69; PULSE 66; RESP 17; TEMP 36.6; O2SAT 100
[2021-09-29 09:00] VITALS: O2SAT 93
--- NOTE | 2021-09-29 09:20 | DIET.CONS ---
Dietary Consultation Note Admission Date: 09/24/2021 14:58 RD Note: Pt screened by RD for LOS day 5. Pt admitted for pneumonia complicated by fall resulting in two fractured ribs, pt on O2. Pt currently being seen by speech therapy, assigned [facility] soft/NKT diet which he is consuming adequately with significant cuing and 1:1 help. Pts often present to assist. Eating difficulty related to dementia. Per COMBATANT SWIMMER and nursing, pt often given meds overnight for behaviors then pt sleeping through breakfast further complicating pts ability to feed. Kitchen will send up ONS Glucerna with breakfast tray so pt can sip on ONS between breakfast and lunch to support PO intake and hydration status (pt admitted c SYLVIE which has nearly resolved with IVF). Ht: 177.8 cm Wt: 72.5 kg BMI: 22.9 UBW: Last BM: () MNA: 11 Navid Score: 18 Diet: 09/24/21 Dinner General (Regular) Diet Diet Modifications: 09/27/21 Dinner Dysphagia Diet Diet Modifications: Liquid consistency: [place] Consistency Food texture: Dysphagia Mechanical Soft Nutrition Percent Meal Consumed pt refused breakfast 09/28/21 10:11 Percent Meal Consumed 100% 09/27/21 18:07 Percent Meal Consumed 25% 09/27/21 13:49 Labs: RBC 2.26 X10^6/uL (4.5-5.9) L 09/27/21 05:27 Hgb 8.0 g/dL (13.5-17.5) L 09/27/21 05:27 Hct 24.0 % (41-53) L 09/27/21 05:27 Creatinine 1.21 mg/dL (0.66-1.25) 09/29/21 05:00 Lactate 1.4 mmol/L (0.7-2.1) 09/24/21 10:07 Iron 44 ug/dL (49-181) L 09/26/21 08:05 % Saturation 15 % (20-50) L 09/26/21 08:05 NT-Pro-B Natriuret Pep 902 pg/mL (<450) H 09/24/21 10:07 Nutrition Diagnosis: Pt often missing breakfast meal due to medication side effects. Interventions: Kitchen to send up ONS on breakfast tray to support PO intake in morning and hydration status. Monitoring/Evaluations: ONS tolerance, breakfast time POs Electronically Signed by: Liss Johnson 09/29/21 09:20 Clinical Dietitian [address] [id number]
[2021-09-29] MEDS: ENOXAPARIN 40 MG/0.4 ML SYRINGE SUBCUT (10:01)
--- NOTE | 2021-09-29 10:15 | PT.IPTN ---
Current Diagnoses Pneumonia, unspecified organism (09/24/21) Physical Therapy Treatment Note M2 PT-IP Current Condition Start: 09/26/21 08:30 Freq: NEEDED Status: Active Protocol: Document 09/29/21 10:05 SP (Rec: 09/29/21 10:32 SP [id number]) Physical Therapy Current Condition Current Condition Evaluation Date 09/26/21 Treatment Diagnosis pneumonia, rib fractures, impaired gait and mobility Onset Date 09/22/21 M3 PT-IP Subjective Start: 09/26/21 08:30 Freq: NEEDED Status: Active Protocol: Document 09/29/21 10:05 SP (Rec: 09/29/21 10:32 SP [id number]) Subjective Physical Therapy Visit Type Type Treatment Note Visit Start Time 10:05 Visit Stop Time 10:15 Total Visit Minutes 10 Number of GAS MAIN AND LINE FITTER Visits 2 Physical Therapy Visit Comments Patient Comments Pt agreed to working with therapy. M4 PT-IP Mobility and Gait Start: 09/26/21 08:30 Freq: NEEDED Status: Active Protocol: Document 09/29/21 10:05 SP (Rec: 09/29/21 10:32 SP [id number]) PT-Transfer Assessment Sit to and From Stand Sit to and from Stand Minimal Assistance,1 Person Assistance,Use of Upper Extremities Equipment Transfer Assistive Device Gait Belt,Front Wheeled Walker Orthotic/Prosthetic Devices or Brace: No Transfers Transfer Destination Chair Transfer Technique pt ambulated with FWW Transfer Ability Level of Assist Minimal Assistance,1 Person Assistance,Use of Upper Extremities Comments Mobility Comments Pt improved able to scoot forward in chair SBA. Max cues for proper hand placement during Sit<>stand, requires Min A due to decrease balance during transitions to FWW and back to chair to sit. Gait further distance around room x2laps approx 60 ft w/FWW, CG- Min A for trunk stability due to steps outside FWW during turns and trunk leans to opposite side of turn, improved in imaging account manager on FWW but LOB x1 to L when wiped his nose during turn Min A for recovery. Pt maintained safe SaO2, mid 90s during activity, very minimal elevated respiratory rate. Pt will require SNF for continued strength, balance and safety educational cues for functional independence in mobility. Gait Assessment Gait Gait Assistance Required: Contact Guard Assist,Minimum Assistance,1 Person Assist Distance (Feet) 60 Able to Maintain Weight Bearing Status Yes During Gait Assistive Devices Assistive Device Gait Belt,Front Wheeled Walker Orthotic/Prosthetic Devices or Brace: No Gait Deviations General Gait Pattern Antalgic,Decreased Stride Length,Decreased Feet Clearance,Flexed Trunk,Lateral Trunk Lean,Narrow Based Gait Factors Limiting Gait Function Factors Limiting Gait Function Decreased Activity Tolerance, Decreased Strength,Difficulty Following Directions,Poor Balance,Poor Safety Awareness Comments Gait Comments step over step patterning, cued for keeping feet inside and body closer to FWW during turns and obstacle mgt end of bed, 2 laps across room. CG- Min A during turns. Stair Climbing Assessment Comments Stair Climbing Comments Not assessed. Pt not safe for stairs assessment at this time . PT-Balance Assessment Sitting Balance and Reactions Static Sitting Balance Ability Good Dynamic Sitting Balance Ability Fair Standing Balance and Reactions Static Standing Balance Ability Good Dynamic Standing Balance Ability Fair Device Used FWW Functional Assessments Functional Tests 5 Times Sit to Stand 20 sec use hand positioning, cued come complete stand M5 PT-IP Objective Assessments Start: 09/26/21 08:30 Freq: NEEDED Status: Active Protocol: Document 09/26/21 15:50 AW (Rec: 09/26/21 16:55 AW [id number]) Orientation Orientation/Cognition Level of Alertness Alert Orientation Name Language Function Ability Hard of Hearing Safety Awareness Decreased Safety Awareness Comments Pt is oriented to his name but not to , month, year, place, or situation. Gross Range of Motion Lower Extremity ROM Assessment Within Functional Limits Strength Lower Extremity Strength Assessment Bilaterally Impaired Comments Strength Comments Pt has difficulty following commands for formal strength assessment but is grossly 4/5 to 4+/5 BLE. 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 M6 PT-IP Treatment Start: 09/26/21 08:30 Freq: NEEDED Status: Active Protocol: Document 09/29/21 10:05 SP (Rec: 09/29/21 10:32 SP [id number]) Physical Therapy Treatment Education Education Provided Safety M7 PT-IP Assessment and Plan Start: 09/26/21 08:30 Freq: NEEDED Status: Active Protocol: Document 09/29/21 10:05 SP (Rec: 03/17/22 10:32 SP [id number]) PT Summary Assessment and Plan Potential Rehabilitation Potential Fair Status of Condition at Evaluation Evolving Summary Impairments Pain,ROM,Strength,Balance, Coordination,Sensation,Tone, Cognition,Bed Mobility, Transfers,Gait,Activity Tolerance Progress Towards Goals Progressing Toward Goals,Slow Progress due to Activity Tolerance Assessment Summary Pt requires Min A during transfers and gait mobility due to decreased stability lateral lean with turns, LOB x1 Min A recovery, proper use of FWW but improved overall. Continue recommend SNF for continued strength, balance and safety educational cues for functional independence in mobility. Goals Bed Mobility Goal Independent Transfer Goal Independent Gait Goal Independent,Front Wheel Walker Gait Distance 200 Other Goals - up/down 2 steps without rail SBA - up/down 13 steps with left rail ascending SBA - progress gait to IND without AD Days to Meet Goals 5 Frequency of Treatment Frequency Of Treatment Once a Day Treatment Plan Physical Therapy Treatment Plan Bed Mobility Training,Transfer Training,Gait Training, Therapeutic Exercise,Balance Retraining,Discharge Planning, Neuromuscular Re-ed, Coordination Retraining Other Recommendations and Next Treatment bed mob, safety transfers, Focus gait and stair mgt and CGT when safe to return home. Precautions Other Precautions falls risk Recommendations To Nursing Amount of Assist Needed 1 Person Assist Discharge Recommendations PT Discharge Recommendations SNF Rehab Equipment Needed for Home Before FWW Discharge Transportation Needs at Discharge Private Vehicle,Wheelchair/ Cabulance
--- NOTE | 2021-09-29 10:57 | PC.NURSE ---
Addendum entered by Patrick Davis R.N. 09/29/21 14:50: Pt's is at bedside. She is happy that he has improved drastically from yesterday. Updated her on plan of care- possibly SNF today. states that she can take him home if he is able to walk up stairs. Requested PT see pt and practice stairs. PT states that based on yesterday's notes, pt is not able to do stairs. Reported pt has improved since yesterday and again requested PT work with pt on stairs. Awaiting communication. Updated SHINGLE INSPECTOR regarding 's wishes to take him home if able. Original Note: Dr. Noland on rounds. Discussed pt mentation improving, worked with PT today, currently up to chair, IV , unknown LBM. Dr. Noland states ok to dc IV access and leave out. Plan is to find SNF placement today.
[2021-09-29] MEDS: FOLIC ACID 1 MG TABLET PO (11:35)
[2021-09-29] MEDS: THIAMINE 100 MG TABLET PO (11:35)
[2021-09-29] MEDS: ASPIRIN 81 MG CHEW TAB PO (11:35)
[2021-09-29] MEDS: MAGNESIUM OXIDE 400 MG TABLET PO (11:35)
[2021-09-29] MEDS: MULTIVITAMIN 1 TABLET 1 TAB PO (11:36)
[2021-09-29] MEDS: AMLODIPINE 5 MG TABLET PO ×2 (11:36→21:04)
[2021-09-29 12:53] VITALS: BP 143/68; PULSE 66; RESP 17; TEMP 36.1; O2SAT 98
--- NOTE | 2021-09-29 13:19 | ST.IPDYTX ---
Visit Care Team Role Provider Type Valarie Noel MD Primary Care Provider Physician Specialty: Family Practice Address: [address] [place] [address], [id number] Phone: Fax: Email: [email or web address] [place] Jeet Fernandez MD Emergency Provider Physician Referring Provider Specialty: Emergency Medicine Address: [address] [place] [address], [address] Email: [email or web address] Daniele Goodrich MD Admit Provider Physician Attending Provider Specialty: Medical Address: [address] [place] [address], [id number] Email: [email or web address] MACHINE SKIVER Dysphagia Treatment MACHINE SKIVER Dysphagia Treatment Start: 09/26/21 15:25 Freq: Status: Active Protocol: Document 09/29/21 12:47 LNK (Rec: 09/29/21 13:18 LNK [id number]) Dysphagia Treatment Session Time Visit Start Time 11:15 Visit Stop Time 12:30 Total Visit Minutes 45 Setting Assessment Location Acute Care Visit Type Note Type Treatment Note Next Note Type Next Note Type Treatment Note Patient Information Identification Type Name,ID Card Subjective Observations Pt was dozing in chair. He was much more alert today. Pt was intelligible and conversant throughout the session. Trial NTL and thin liquids with a straw as well as dysphagia advanced texture ( diced peaches). Pt was observed taking medications whole in applesauce. He chewed all of his pills Pt safely tolerated all trials. Wet voicing x1 that cleared with cue to sallow again. Cough observed x1 ~10 minutes following treatment. The cough did not appear to be swallow related Treatment Liquids Trialed Thin,Acres Green Administration Type Tea Spoon,Cup Single Sip,Straw ,Dependent Feeding Oral Strategies Upright at 90 degrees,Dementia Strategies Pharyngeal Strategies Sitting Upright (90 deg),Small Bites and Sips,Alternate Liquids/Solids Additional Dysphagia Treatment Verbal cues only Strategies Treatment Activities Pt tolerated all trials. and good mastication without cues. Safely tolerated thin liquids and Dysphagia Advanced texture. Assessment Patient Response to Treatment Good Rehab Potential Good Diet Recommendations Recommendations Upgrade Diet Order Liquids Order Thin Diet Order Dysphagia Advanced Medication Recommendations As Tolerated Comments Strict oral care. Additional Dietary Needs 1:1 Supervision Aspiration Precautions Recommended Precautions Upright at 90 Degrees, Alternate Liquids/Solids,Small Bites/Sips Additional Precautions Pt must be fully awake and alert for oral intake. Treatment Plan Placement Recommendation after Discharge Senior Living Facility,Home with Home Health Appropriate for Continued Therapy Yes Therapy Recommendations Continue ongoing assessment of swallow, speech and language, cognitive communication skills as indicated. Dysphagia Goals 1. Pt will follow safe swallow strategies with min prompts to reduce risk of aspiration. 2. Pt will tolerate least restrictive diet to meet his nutrition and hydration needs.
--- NOTE | 2021-09-29 14:41 | P.PN_ITS ---
Subjective Subjective Date Patient Seen: 09/29/21 Interval history: 85 y/o male admitted for acute rib fractures of 11th/12th rib following a fall, bilateral pneumonia, CKD, COPD, GERD. Patient developed acute metabolic encephalopathy secondary to his pneumonia and was quite delerious in the evenings. He received 25 mg of seroquel last night and had an uneventful night. He is sitting up in a chair, more alert and appropriate today with no specific complaints Exam Vital Signs (past 8 hours): - 09/29/21 07:54 09/29/21 09:00 09/29/21 12:53 Temperature 97.9 F 96.9 F L Pulse Rate 66 66 Respiratory Rate 17 17 Blood Pressure 122/69 143/68 H Pulse Oximetry 100 93 98 Fraction of Inspired Oxygen 30 Oxygen Delivery Method Room Air Oxygen Flow Rate 0 Narrative Exam Narrative: pleasant elderly male sitting in a chair Resp Other: Lungs: decreased breath sounds with scattered rhonchi Cardio Other: RRR nl Sl S2 GI Other: abd: soft/ non tender/ non distended Extrem Other: no edema Objective Labs Result Diagrams: 09/27/21 05:27 09/29/21 05:00 Labs: Laboratory Results - last 24 hr 09/29/21 05:00 Sodium 136 L Potassium 4.8 Chloride 102 Carbon Dioxide 33 H BUN 43 H Creatinine 1.21 Estimated GFR 57.3 L BUN/Creatinine Ratio 35.5 H Glucose 134 H Calcium 9.5 PFSH Medical History Adenocarcinoma of right lung, stage 1 (~05/10/20) Anemia Benign prostatic hyperplasia (01/29/12) BPH w urinary obs/LUTS Bradycardia Cellulitis Centrilobular emphysema (12/13/16) Cholesteatoma (09/10/12) Chronic kidney disease (CKD) stage G3a/A1, moderately decreased glomerular filtration rate (GFR) between 45-59 mL/min/1.73 square meter and albuminuria creatinine ratio less than 30 mg/g COPD (chronic obstructive pulmonary disease) DNR (do not resuscitate) Hemorrhagic cerebrovascular accident (CVA) (~2006) Hydronephrosis, left Hyperlipidemia Hypertension Lower urinary tract symptoms (LUTS) Lung cancer Macrocytic anemia (07/06/16) Mild alcohol abuse (03/26/15) Olecranon bursitis Peripheral vascular disease of foot (05/31/17) Pneumonia Primary adenocarcinoma of upper lobe of right lung Sinusitis Stenosis of left femoral artery Stroke Substance abuse Syncope Syncope and collapse (09/10/12) Tobacco use disorder, continuous (09/10/12) Transient cerebral ischemia (04/23/12) Traumatic compression fracture of seventh thoracic vertebra, sequela (10/09/16) Tubular adenoma Urinary retention Surgical History History of carpal tunnel repair (03/02/15) History of cataract removal with insertion of prosthetic lens (02/16/15) History of cataract removal with insertion of prosthetic lens (03/09/15) History of tonsillectomy Status post appendectomy Status post colonoscopy (10/06/09) Status post lobectomy of lung (~04/2020) Status post repair of hydrocele (05/22/11) Family History Brother Lung cancer Father Lung cancer Mother Migraines Social History marital status: number of children: 2 household members: spouse Smoking Status: Current every day smoker Tobacco: How many years used: 69 quit status: considering quitting alcohol intake: current caffeine: Yes Assessment & Plan Assessment & Plan narrative: This is an 84-year-old male with COPD, lung cancer, chronic kidney disease, esophagitis and severe hearing loss who fell at home fracturing ribs 11 and 12 on the right side with resultant pneumonia and hypoxia.? When he presented to the emergency department he was initially saturating in the low 90s but subsequently dropped to the 70s and is now needing high-flow nasal cannula ox ygen supplementation. Right Lung Pneumonia, acute -Related to fall and rib fractures with respiratory splinting/shallow breathing -CXR with RML infiltrate, WBC 24.6 on admission, improved to 12.6 -IV Ceftriaxone, Azithromycin -Oxygen by HFNC has been stopped and he is switched to nasal cannula -will continue to taper oxygen as tolerated -patient is off oxygen -on oral antibiotics, d/c after 7 day treatment Hypoxemic Respiratory Failure, present on admission.? Active. -HFNC 40 L initially but now down to nasal cannula. DNI/DNR. -IV Solumedrol, Albuterol -Ceftriaxone, Azithromycin IV -on levofloxacin, can d/c at discharge -steroids discontinued Anemia, acute -hemoglobin 6.9, no evidence of overt bleeding -ordered for transfusion 1 PRBC, check hemoglobin at 1500 -MCV noted to be elevated -ordered workup with iron studies, folate, b12, ldh, retic count -H/h stable Traumatic Right Rib Fractures - 11 and 12, present on admission.? Active. -pain control with prn Hydrocodone -No pneumothorax seen Severe hearing loss, present on admission. Active. COPD, present on admission.? Chronic. 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 -Creatinine 2.57 on admission, follow and hydrate gently with creatinine improved to 1.8 -avoid nephrotoxic agents -will follow renal function closely -d/c leija Hypertension, present on admission.? Chronic. -Continue Amlodipine GERD, present on admission.? Chronic. -Continue Omeprazole\ Delerieum -will adjust medications -continue seroquel 25mg at bedtime -d/c benzodiazines Disposition-continue PT/OT May be able to discharge home Time Spent With Patient Critical Care time: I spent a total of [] minutes of critical care time on this patient's care today; this time is exclusive of procedural time. Quality VTE Deep Vein Thrombosis/Pulmonary Embolism Present on Admission: No
[2021-09-29 17:47] VITALS: BP 107/56; PULSE 68; RESP 16; TEMP 36.1; O2SAT 95
[2021-09-29 20:30] VITALS: BP 152/72; PULSE 64; RESP 17; TEMP 36.2; O2SAT 96
[2021-09-29] MEDS: QUETIAPINE 25 MG TABLET PO (21:04)
[2021-09-29] MEDS: ATORVASTATIN 20 MG TABLET 10 MG PO (21:04)
[2021-09-30 04:00] VITALS: BP 114/64; PULSE 68; RESP 17; TEMP 36.6; O2SAT 93
[2021-09-30 04:23] VITALS: O2SAT 93
--- NOTE | 2021-09-30 05:48 | PC.NURSE ---
0530- Patient had a restful night. Using the urinal without assist. Wet sounding cough though lungs are relatively clear and or clear with cough. Patient is on room air. Denies pain. Cooperative with care. Impulsive at times bed alarm for safety.
[2021-09-30] MEDS: PANTOPRAZOLE DR 20 MG TABLET PO (06:24)
[2021-09-30] MEDS: levoFLOXacin 250 MG TABLET PO (06:24)
[2021-09-30 08:00] VITALS: BP 129/77; PULSE 65; RESP 16; TEMP 36.7; O2SAT 95
[2021-09-30] MEDS: ENOXAPARIN 40 MG/0.4 ML SYRINGE SUBCUT (08:03)
--- NOTE | 2021-09-30 10:31 | PT.IPTN ---
Current Diagnoses Pneumonia, unspecified organism (09/24/21) Physical Therapy Treatment Note M2 PT-IP Current Condition Start: 09/26/21 08:30 Freq: NEEDED Status: Discharge Protocol: Document 09/29/21 10:05 SP (Rec: 09/29/21 10:32 SP [id number]) Physical Therapy Current Condition Current Condition Evaluation Date 09/26/21 Treatment Diagnosis pneumonia, rib fractures, impaired gait and mobility Onset Date 09/22/21 M3 PT-IP Subjective Start: 09/26/21 08:30 Freq: NEEDED Status: Discharge Protocol: Document 09/30/21 09:59 KS (Rec: 09/30/21 13:43 KS [id number]) Subjective Physical Therapy Visit Type Type Treatment Note Visit Start Time 09:59 Visit Stop Time 10:31 Total Visit Minutes 32 Notes Pts spouse present for caregiver training Number of STREETCAR REPAIRER HELPER Visits 3 Physical Therapy Visit Comments Patient Comments Pt agreed to working with therapy. M4 PT-IP Mobility and Gait Start: 09/26/21 08:30 Freq: NEEDED Status: Discharge Protocol: Document 09/30/21 09:59 KS (Rec: 09/30/21 13:43 KS [id number]) PT-Transfer Assessment Sit to and From Stand Sit to and from Stand Standby Assistance,1 Person Assistance,Use of Upper Extremities Equipment Transfer Assistive Device Gait Belt,Front Wheeled Walker Orthotic/Prosthetic Devices or Brace: No Transfers Transfer Destination Chair,Wheelchair Transfer Technique pt ambulated with FWW Transfer Ability Level of Assist Contact Guard Assistance,1 Person Assistance,Use of Upper Extremities Comments Mobility Comments Pt in chair upon arrival w/ spouse in room. SBA for sit<> stand w/ FWW, pt ambulated ~30 ft around room CGA. Impulsive sometimes letting go of FWW needing cues for proper use. W /c transport down to stairs, pt completed 3 steps w/ L rail SBA step over step 4 times, 12 steps total. Pts provided SBA but she herself can only ascend step to pattern and pt is step over step. Pt then completed 1x platform step w/ CGA and cues and when instructed to turn back towards w/c, he quickly turned and had LOB w/ FWW needing CGA to recover. W/c back to room, CGA for transfer back to chair. Gait Assessment Gait Gait Assistance Required: Contact Guard Assist Distance (Feet) 50 Able to Maintain Weight Bearing Status Yes During Gait Assistive Devices Assistive Device Gait Belt,Front Wheeled Walker Orthotic/Prosthetic Devices or Brace: No Gait Deviations General Gait Pattern Antalgic,Decreased Stride Length,Decreased Feet Clearance,Flexed Trunk,Lateral Trunk Lean,Narrow Based Gait Factors Limiting Gait Function Factors Limiting Gait Function Decreased Activity Tolerance, Decreased Strength,Difficulty Following Directions,Poor Balance,Poor Safety Awareness Comments Gait Comments Pt unsafe and impulsive during ambulation, needing CGA at all times when ambulating. Stair Climbing Assessment Evaluation Level of Assist On Stairs Standby Assistance,1 Person Assistance Devices Stair Climbing Assistive Devices Left Railing Technique/Endurance Stair Climbing Direction Ascend and Descend Stair Climbing Technique Step Over Step Number of Steps Climbed 3 Stair Climbing Set # Repetitions (reps) 4 Comments Stair Climbing Comments Ascended/descended 12 total steps w/ L rail step over step SBA and 1 platform step w/ FWW and cues CGA. Pts unable to help physically due to bad knees, but able to cue. Pt unsafe due to impulsiveness, but pt and state they feel safe to do stairs at home. PT-Balance Assessment Sitting Balance and Reactions Static Sitting Balance Ability Good Dynamic Sitting Balance Ability Fair Standing Balance and Reactions Static Standing Balance Ability Good Dynamic Standing Balance Ability Fair Device Used FWW M5 PT-IP Objective Assessments Start: 09/26/21 08:30 Freq: NEEDED Status: Discharge Protocol: Document 09/26/21 15:50 AW (Rec: 09/26/21 16:55 AW [id number]) Orientation Orientation/Cognition Level of Alertness Alert Orientation Name Language Function Ability Hard of Hearing Safety Awareness Decreased Safety Awareness Comments Pt is oriented to his name but not to , month, year, place, or situation. Gross Range of Motion Lower Extremity ROM Assessment Within Functional Limits Strength Lower Extremity Strength Assessment Bilaterally Impaired Comments Strength Comments Pt has difficulty following commands for formal strength assessment but is grossly 4/5 to 4+/5 BLE. 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 M6 PT-IP Treatment Start: 09/26/21 08:30 Freq: NEEDED Status: Discharge Protocol: Document 09/30/21 09:59 KS (Rec: 09/30/21 13:43 KS [id number]) Physical Therapy Treatment Education Education Provided Safety Other Treatments Other Treatment Performed Dispensed FWW for home use. M7 PT-IP Assessment and Plan Start: 09/26/21 08:30 Freq: NEEDED Status: Discharge Protocol: Document 09/30/21 09:59 KS (Rec: 09/30/21 13:43 KS [id number]) PT Summary Assessment and Plan Potential Rehabilitation Potential Fair Status of Condition at Evaluation Evolving Summary Impairments Pain,ROM,Strength,Balance, Coordination,Sensation,Tone, Cognition,Bed Mobility, Transfers,Gait,Activity Tolerance Progress Towards Goals Progressing Toward Goals,Slow Progress due to Activity Tolerance Assessment Summary Pt continues to be impulsive ad had two total LOB during treatment. aware pt will need 24/7 assist to be safe at home due to poor safety awareness, poor balance, and needs for frequent cues for safety and FWW use. Pt able to ascend and descend stairs w/ L rail SBA. Dispensed FWW for home use, however still believe pt would be safer in SNF to improve functional mobility and safety. Goals Bed Mobility Goal Independent Transfer Goal Independent Gait Goal Independent,Front Wheel Walker Gait Distance 200 Other Goals - up/down 2 steps without rail SBA - up/down 13 steps with left rail ascending SBA - progress gait to IND without AD Days to Meet Goals 5 Frequency of Treatment Frequency Of Treatment Once a Day Treatment Plan Physical Therapy Treatment Plan Bed Mobility Training,Transfer Training,Gait Training, Therapeutic Exercise,Balance Retraining,Discharge Planning, Neuromuscular Re-ed, Coordination Retraining Other Recommendations and Next Treatment bed mob, safety transfers, Focus gait and stair mgt and CGT when safe to return home. Precautions Other Precautions falls risk Recommendations To Nursing Amount of Assist Needed 1 Person Assist Discharge Recommendations PT Discharge Recommendations SNF Rehab Equipment Needed for Home Before FWW Discharge Transportation Needs at Discharge Private Vehicle,Wheelchair/ Cabulance
--- NOTE | 2021-09-30 11:03 | P.DS_ITS ---
History of Present Illness History of Present Illness Date Patient Seen: 09/30/21 Chief complaint: Stroke Narrative: This is an 84-year-old male with COPD, lung cancer, chronic kidney disease, esophagitis and severe hearing loss who fell at home fracturing ribs 11 and 12 on the right side with resultant pneumonia and hypoxia.? When he presented to the emergency department he was initially saturating in the low 90s but subsequently dropped to the 70s and is now needing high-flow nasal cannula oxygen supplementation.? He is DNR/DNI.? He describes the episode occurring when he was trying to load something onto his truck while standing on several milk crates.? He fell against the plastic milk crates lacerating his head and injuring his right chest about 5 days ago.? He went to see his primary care the following day and had a workup done that initially showed no fracture.? His brought him in today because his face appeared to be drooping, he was more confused and he was unable to cough up his usual phlegm due to the pain.? He is exceedingly hard of hearing and is challenged to follow any amount of directions with the stroke exam being far beyond anything he can communicate about.? His chest x-ray shows bilateral infiltrates with right-sided pneumonia.? On CT scan he reportedly has acute right rib fractures posterior/lateral on right 10th and 11th ribs and posterior right 12th rib fracture.? There are right L1- L3 right transverse process fractures. (Written report not present in the EMR.) The white blood count is 24.6 with a hemoglobin of 8.6.? No brain injury or bleed seen on Brain CT. Discharge Providers Provider Date of admission: 09/24/21 14:58 Discharge Date: 09/30/21 Primary care physician: Valarie Noel MD Consults: 09/24/21 22:31 Consult to Speech Therapy Evaluate & Treat Comment: Physician Instructions: Evaluate and treat 09/25/21 08:36 Consult to Speech Therapy Evaluate & Treat Comment: aspiration? Physician Instructions: Evaluate and treat 09/25/21 14:07 Consult to Physical Therapy Evaluate & Treat Comment: Physician Instructions: Evaluate and Treat 09/30/21 10:41 Consult to Physical Therapy Evaluate & Treat Comment: Physician Instructions: FWW for home use 09/30/21 10:42 Consult to Home Health Routine Comment: Reason For Exam: Home Health upon DC Discharge provider: Mary Noland MD Summary Hospital Course Discharge Diagnosis: 1. Right lower lobe pneumonia with associated acute hypoxic respiratory failure 2. Acute rib fractures 3. History of lung cancer 4. COPD 5. Chronic kidney disease 6. Hypertension 7. Hyperlipidemia 8. Acute metabolic encephalopathy/delirium 9. Anemia, chronic Hospital Course: Patient was admitted to the hospital for treatment of pneumonia. He was placed on IV antibiotics and then switch to oral. He did require oxygen initially as he was hypoxic. Was able to be tapered off the oxygen. The patient did develop some confusion, this was mostly at night. Is given Seroquel in Ativan which resulted in lethargy the following day. When the Ativan was discontinued and he remained on Seroquel at night he had significant improvement in his behavior. He had no further confusion. He was able to walk and work with physical therapy. His is at the bedside and feels that he is back to his baseline and she is comfortable with him returning home. Today the patient is awake and alert. He has no complaints. He is not short of breath. He notes he is at the hospital in appears to be mentally back to his baseline. The patient will be discharged home with home health following. Status at Discharge Cognitive/behavioral status at discharge: oriented Functional status at discharge: uses cane/walker Overall status at discharge: patient is progressing back to baseline Exam Vital Signs (past 8 hours): - 09/30/21 04:00 09/30/21 04:23 09/30/21 08:00 Temperature 97.9 F 98.1 F Pulse Rate 68 65 Respiratory Rate 17 16 Blood Pressure 114/64 129/77 Pulse Oximetry 93 93 95 Fraction of Inspired Oxygen 30 Oxygen Delivery Method Room Air Oxygen Flow Rate 0 Narrative Exam Narrative: Pleasant elderly male lying in bed in no obvious distress Resp Other: Lungs: Decreased breath sounds but clear to auscultation Cardio Other: Cardiac exam: Regular rate and rhythm normal S1-S2 GI Other: Abdomen: Soft and nontender Extrem Other: Extremity no edema Objective Labs Result Diagrams: 09/27/21 05:27 09/29/21 05:00 [facility] Medical History Adenocarcinoma of right lung, stage 1 (~05/10/20) Anemia Benign prostatic hyperplasia (01/29/12) BPH w urinary obs/LUTS Bradycardia Cellulitis Centrilobular emphysema (12/13/16) Cholesteatoma (09/10/12) Chronic kidney disease (CKD) stage G3a/A1, moderately decreased glomerular filtration rate (GFR) between 45-59 mL/min/1.73 square meter and albuminuria creatinine ratio less than 30 mg/g COPD (chronic obstructive pulmonary disease) DNR (do not resuscitate) Hemorrhagic cerebrovascular accident (CVA) (~2006) Hydronephrosis, left Hyperlipidemia Hypertension Lower urinary tract symptoms (LUTS) Lung cancer Macrocytic anemia (07/06/16) Mild alcohol abuse (03/26/15) Olecranon bursitis Peripheral vascular disease of foot (05/31/17) Pneumonia Primary adenocarcinoma of upper lobe of right lung Sinusitis Stenosis of left femoral artery Stroke Substance abuse Syncope Syncope and collapse (09/10/12) Tobacco use disorder, continuous (09/10/12) Transient cerebral ischemia (04/23/12) Traumatic compression fracture of seventh thoracic vertebra, sequela (10/09/16) Tubular adenoma Urinary retention Surgical History History of carpal tunnel repair (03/02/15) History of cataract removal with insertion of prosthetic lens (02/16/15) History of cataract removal with insertion of prosthetic lens (03/09/15) History of tonsillectomy Status post appendectomy Status post colonoscopy (10/06/09) Status post lobectomy of lung (~04/2020) Status post repair of hydrocele (05/22/11) Family History Brother Lung cancer Father Lung cancer Mother Migraines Social History marital status: number of children: 2 household members: spouse Smoking Status: Current every day smoker Tobacco: How many years used: 69 quit status: considering quitting alcohol intake: current caffeine: Yes Discharge Assessment & Plan Assessment and Plan Assessment: Right lower lobe pneumonia with associated acute hypoxic respiratory failure 2. Acute rib fractures 3. History of lung cancer 4. COPD 5. Chronic kidney disease 6. Hypertension 7. Hyperlipidemia 8. Acute metabolic encephalopathy/delirium 9. Anemia, chronic Plan of Treatment: Discharge home Home health Follow-up with primary care provider next week Discharge Plan Discharge Plan Patient Disposition: Home Health Service Transfer to: [facility] Discharge orders & Medications Prescriptions: Continued fluticasone furoate-vilanterol 200-25 mcg/dose blister with device 1 inh INHALATION DAILY Qty: 60 6RF albuterol sulfate [Ventolin HFA] 90 mcg/actuation HFA aerosol inhaler See Rx Instructions .ROUTE .COMPLEX Qty: 18 2RF Dose Instruction: INHALE 2 PUFFS INTO THE LUNGS EVERY 4 HOURS NEEDED FOR SHORTNESS OF BREATH OR WHEEZING. ADMINISTER WITH SPACER Rx Instructions: INHALE 2 PUFFS INTO THE LUNGS EVERY 4 HOURS NEEDED FOR SHORTNESS OF BREATH OR WHEEZING. ADMINISTER WITH SPACER Incruse Ellipta 62.5 mcg/actuation blister with device See Rx Instructions .ROUTE .COMPLEX Qty: 30 3RF Dose Instruction: INHALE 1 PUFF INTO THE LUNGS EVERY DAY Rx Instructions: INHALE 1 PUFF INTO THE LUNGS EVERY DAY amlodipine 5 mg tablet See Rx Instructions .ROUTE .COMPLEX Qty: 180 0RF Dose Instruction: TAKE 1 TABLET BY MOUTH TWICE DAILY Rx Instructions: TAKE 1 TABLET BY MOUTH TWICE DAILY rosuvastatin 5 mg tablet See Rx Instructions .ROUTE .COMPLEX Qty: 90 0RF Dose Instruction: TAKE 1 TABLET BY MOUTH DAILY Rx Instructions: TAKE 1 TABLET BY MOUTH DAILY aspirin 81 mg tablet,chewable 81 mg PO DAILY 0RF omeprazole 20 mg capsule,delayed release(DR/EC) 20 mg PO DAILY 0RF multivitamin [Tab-A-Iqra] Tablet 1 tab PO DAILY Qty: 30 0RF thiamine HCl (vitamin B1) [Vitamin B-1] 100 mg Tablet 100 mg PO DAILY Qty: 30 0RF magnesium 250 mg Tablet 250 mg PO DAILY 0RF Breo Ellipta 200-25 mcg/dose Blister With Device 1 inh INHALATION DAILY 0RF lidocaine [Blue-Emu Lidocaine Patch] 4 % Adhesive Patch,Medicated 1 patch TOPICAL DAILY PRN (Reason: Pain (Scale Score 4-6)) 0RF Follow up/Referrals: Valarie Noel MD [Primary Care Provider] - Diet/Activity/Treatments Diet: Low-sodium and Low-cholesterol Skin/Wound/Dressing Care Report to your healthcare provider any signs of infection, such as:: chills, fever and increased pain Discharge Data Primary Care Provider: Valarie Noel Quality VTE Deep Vein Thrombosis/Pulmonary Embolism Present on Admission: No
[2021-09-30] MEDS: MAGNESIUM OXIDE 400 MG TABLET PO (11:40)
[2021-09-30] MEDS: MULTIVITAMIN 1 TABLET 1 TAB PO (11:40)
[2021-09-30] MEDS: ASPIRIN 81 MG CHEW TAB PO (11:40)
[2021-09-30] MEDS: AMLODIPINE 5 MG TABLET PO (11:40)
[2021-09-30] MEDS: FOLIC ACID 1 MG TABLET PO (11:40)
--- NOTE | 2021-09-30 13:09 | SLP.IPNOTE ---
Pt chastity preparing for discharge home with home health. Did not see him for ST
--- NOTE | 2021-09-30 13:13 | PC.NURSE ---
Discharge teaching completed with pt and spouse at bedside. Reviewed dc packet, medications (next dose due, etc), diagnoses, fall precautions, alcohol cessation, smoking cessation, need for f/u. Pt and spouse verbalize understanding. Also reiterated to pt and spouse that pt is not to drive until cleared to do so by his PCP. Pt transferred independently from bed to w/c and was brought to POV with all belongings. Pt in no apparent distress at time of dc.
--- NOTE | 2021-09-30 14:54 | CM.DPNOTE ---
DC Note Spoke w/patient and spouse this morning after therapy eval; DAG SPRAYER has cleared patient for return home, however, education given about use of walker and importance of using. Patient needed much cueing to remain safe during ambulation and stairs, according to DAG SPRAYER [place]. spouse agreeable to getting patient home today, spouse Arely denies need for HH services at this time. Plan: DC home w/spouse via pov, close outpatient f/u recommended, denied need for HH services JW
== END 2021-09-30 13:17 | disposition home or self-care (01) | DRG 193 ==
LOC: ED 10:36 → AC 14:59 → ICU 15:43
PROVIDERS: Internal Medicine; Admitting Provider Family Medicine; Emergency Provider Emergency Medicine; PCP Family Medicine; Referring Provider Emergency Medicine; Visit Provider Family Medicine
DX: J18.9 Pneumonia, unspecified organism (principal); G93.41 Metabolic encephalopathy; J96.01 Acute respiratory failure with hypoxia; S22.41XA Multiple fractures of ribs, right side, initial encounter for closed fracture; N17.9 Acute kidney failure, unspecified; C34.91 Malignant neoplasm of unspecified part of right bronchus or lung; D64.9 Anemia, unspecified; I12.9 Hypertensive chronic kidney disease with stage 1 through stage 4 chronic kidney disease, or unspecified chronic kidney disease; N18.31 Chronic kidney disease, stage 3a; Z66 Do not resuscitate; Z20.822 Contact with and (suspected) exposure to COVID-19; F17.210 Nicotine dependence, cigarettes, uncomplicated; J44.9 Chronic obstructive pulmonary disease, unspecified; K21.9 Gastro-esophageal reflux disease without esophagitis; E78.5 Hyperlipidemia, unspecified; W18.30XA Fall on same level, unspecified, initial encounter; R00.1 Bradycardia, unspecified
CPT/HCPCS: 36415; 36430; 36600; 70450; 71045; 71250; 74176; 80048; 81001; 82550; 82553; 82607; 82746; 82805; 82962; 83540; 83550; 83605; 83615; 83880; 84145; 84484; 85025; 85027; 85045; 85610; 85730; 86850; 86900; 86901; 87040; 87070; 87077; 87186; 87205; 87635; 87797; 92526; 92610; 93005; 93010; 94640; 94760; 94799; 96365; 96366; 96375; 97116; 97162; 97530; 99285; 99291; 99292; C9803; P9016; J0696; J1650; J1756; J2060; J2930

== ENCOUNTER 2021-10-27 15:45 | Emergency (ER) | payer MEDICARE, OTHER, SELFPAY ==
[2021-10-03 11:57] VITALS: BMI 22.9
[2021-10-27] VITALS (8 sets, daily range): BP systolic 109–147; BP diastolic 54–66; PULSE 60–64; RESP 15–25; TEMP 35.5–35.9; O2SAT 93–95; BMI 24.6
--- NOTE | 2021-10-27 15:58 | DI.RAD.S_ITS ---
PROCEDURE: XR CHEST 2V INDICATIONS: shortness of breath TECHNIQUE: 2 views of the chest were acquired. COMPARISON: [facility], CT, CT CHEST ABD PEL WO CON, 09/24/2021, 11:26. [facility], CR, XR CHEST 1V, 09/07/2021, 17:42. [facility], CR, XR CHEST 1V, 09/24/2021, 10:38. FINDINGS: Surgical changes and devices: A single lead pacer device is seen, which appears stable. Lungs and pleura: The lungs are hyperexpanded. Abnormal interstitial prominence can be seen throughout, right worse than left. There are small bilateral pleural effusions seen, right worse than left. No pneumothorax is seen. Mediastinum: The cardiac contours are at the upper limits of normal. The aorta demonstrates calcification and tortuosity. Bones and chest wall: No suspicious bony abnormalities. Age-appropriate bony degenerative changes are seen. Accentuated thoracic kyphosis is seen, with midthoracic anterior wedge deformities. The rib fractures that can be seen on the prior CT are not seen on this plain film study. Mild dextroconvex scoliotic curvature is seen. Soft tissues appear unremarkable. IMPRESSION: Abnormal interstitial prominence and pleural effusions. These findings are progressed compared to the 09/24/2021 examination. Please consider fluid overload. Dictated by: Abdirahman Alvarenga M.D. on 10/27/2021 at 15:29 Approved by: Abdirahman Alvarenga M.D. on 10/27/2021 at 15:31
[2021-10-27 16:11] LABS: Hematocrit 24.6 % (41-53); Hemoglobin 8.1 g/dL (13.5-17.5); Mean Corpuscular HGB Conc 32.7 % (30-36); Mean Corpuscular Hemoglobin 35.2 PG (26-34); Mean Corpuscular Volume 107.6 fL (80-100); Platelet Count 237 X10^3/uL (150-400); Red Blood Cell Count 2.29 X10^6/uL (4.5-5.9); Red Cell Distribution Width 21.1 % (11.6-14.8); White Blood Cell Count 8.4 X10^3/uL (4.5-11.0)
[2021-10-27 16:20] LABS: Lactate (Lactic Acid) 1.7 mmol/L (0.7-2.1)
[2021-10-27 16:21] LABS: Alanine Aminotransferase 16 IU/L (<50); Albumin 3.8 g/dL (3.5-5.0); Alkaline Phosphatase 112 U/L (38-126); Aspartate Aminotransferase 25 IU/L (17-59); BUN Creatinine Ratio 17.7 (6-22); Bilirubin Total 0.5 mg/dL (0.2-1.3); Blood Urea Nitrogen 39 mg/dL (9-20); Calcium 9.5 mg/dL (8.4-10.2); Carbon Dioxide 28 mmol/L (22-32); Chloride 107 mmol/L (98-107); Estimated Glomerular Filt Rate 29 mL/min (>60); Globulin 3.7 g/dL (1.7-4.1); Glucose 107 mg/dL (80-110); HEMOLYSIS < 15 (0-50); Potassium 4.8 mmol/L (3.4-5.1); Sodium 142 mmol/L (137-145); Total Protein 7.5 g/dL (6.3-8.2)
[2021-10-27 16:32] LABS: Add Manual Diff / Slide Review YES
[2021-10-27 16:35] LABS: Neutrophils Absolute Manual 5712 /uL (3000-5900); Total Cells Counted 100
[2021-10-27 16:36] LABS: Macrocytosis 1+; Schistocytes 1+
[2021-10-27 17:04] LABS: COVID19 -Nasal RAPID Negative (Negative)
--- NOTE | 2021-10-27 17:05 | ED.SOB ---
HPI - SOB/Dyspnea <Shey Burrows, [facility] - Last Filed: 10/27/21 19:40> General Chief Complaint: Shortness of Breath/Dyspnea Stated Complaint: Chest Pain Time Seen by Provider: 10/27/21 16:45 Source: patient Mode of arrival: Ambulatory History of Present Illness HPI Narrative: This is an 85-year-old male with history of bradycardia, CAD with 80% of mid LAD, hypertension, hyperlipidemia, smoker, chronic anemia, mild aortic stenosis lung cancer with resection in 2019 with a single chamber Abbot pacemaker implanted 09/08/2021 for symptomatic bradycardia, CKD with baseline creatinine 1.8 who was admitted for COPD exacerbation with pneumonia on 09/24/2021. Patient is a DNR DNI. Today he complains of left-sided chest pain which goes to through his back, denies a history of this in the past, denies any diaphoresis, nausea, vomiting, fever, orthopnea, endorses shortness of breath with exertion, mild edema in his lower extremities, productive cough which has been increasing over the last week, congestion. Patient states he has been taking all of his medications as they are prescribed including his inhalers. He was recently seen by Cardiology have any significant or abnormal breath sounds at that time. Patient states that he has been on Lasix in the past but denies any history CHF. Related Data Home Medications Medication Instructions Recorded Confirmed fluticasone furoate 200 1 inh INHALATION DAILY 11/03/20 10/06/21 mcg-vilanterol 25 mcg/dose inhalation powder (Breo Ellipta) lidocaine 4 % topical patch 1 patch TOPICAL DAILY PRN 11/03/20 10/06/21 (Blue-Emu Lidocaine Patch) magnesium 250 mg tablet 250 mg PO DAILY 12/02/20 10/06/21 aspirin 81 mg chewable tablet 81 mg PO DAILY tab 06/17/21 10/06/21 omeprazole 20 mg capsule,delayed 20 mg PO DAILY cap 06/17/21 10/06/21 release Previous Rx's Medication Instructions Recorded multivitamin (Tab-A-Iqra) 1 tab PO DAILY #30 tab 09/14/19 thiamine HCl (vitamin B1) 100 mg 100 mg PO DAILY #30 tab 09/14/19 tablet (Vitamin B-1) fluticasone furoate 200 1 inh INHALATION DAILY #60 each 03/16/21 mcg-vilanterol 25 mcg/dose inhalation powder albuterol sulfate 90 mcg/actuation See Rx Instructions .ROUTE 03/25/21 aerosol inhaler (Ventolin HFA) .COMPLEX #18 gram umeclidinium 62.5 mcg/actuation See Rx Instructions .ROUTE 04/14/21 blister powder for inhalation .COMPLEX #30 ea (Incruse Ellipta) rosuvastatin 5 mg tablet See Rx Instructions .ROUTE 08/26/21 .COMPLEX #90 tab amlodipine 5 mg tablet See Rx Instructions .ROUTE 10/24/21 .COMPLEX #180 tab diclofenac sodium 1 % topical gel 2 g TOPICAL QID #100 g 10/27/21 diclofenac sodium 1 % topical gel 2 g TOPICAL QID #100 g 10/27/21 doxycycline hyclate 100 mg tablet 100 mg PO BID 5 Days #10 tab 10/27/21 doxycycline hyclate 100 mg tablet 100 mg PO BID 5 Days #10 tab 10/27/21 furosemide 20 mg tablet (Lasix) 10 mg PO QAM #3 tab 10/27/21 furosemide 20 mg tablet (Lasix) 20 mg PO DAILY #3 tab 10/27/21 lidocaine 5 % topical patch 1 patch TOPICAL DAILY #15 ea 10/27/21 Allergies Allergy/AdvReac Type Severity Reaction Status Date / Time No Known Drug Allergies Allergy Unknown Verified 10/06/21 14:59 Review of Systems <EDUARDO Shay - Last Filed: 10/27/21 19:40> Review of Systems Narrative: General: denies fever, chills, malaise, sweats, fatigue Head/Neck: denies headache, neck pain, dizziness Eyes: denies visual changes, eye pain Cardio: endorses left-sided chest pain which started yesterday, denies palpitations, endorses mild bilateral lower extremity edema Respiratory: Endorses increasing dyspnea and cough, endorses shortness of breath with exertion, denies any orthopnea GI: denies abdominal pain, nausea, vomiting, or diarrhea : denies dysuria, hematuria, urinary retention, frequency or incontinence MSK: denies joint pain, muscle weakness Skin: denies rash, itching, skin lesions or other Neuro: denies numbness, tingling Patient History <EDUARDO Shay - Last Filed: 10/27/21 19:40> Medical History Adenocarcinoma of right lung, stage 1 (~05/10/20) Anemia Benign prostatic hyperplasia (01/29/12) BPH w urinary obs/LUTS Bradycardia Cellulitis Centrilobular emphysema (12/13/16) Cholesteatoma (09/10/12) Chronic kidney disease (CKD) stage G3a/A1, moderately decreased glomerular filtration rate (GFR) between 45-59 mL/min/1.73 square meter and albuminuria creatinine ratio less than 30 mg/g COPD (chronic obstructive pulmonary disease) DNR (do not resuscitate) Hemorrhagic cerebrovascular accident (CVA) (~2006) Hydronephrosis, left Hyperlipidemia Hypertension Lower urinary tract symptoms (LUTS) Lung cancer Macrocytic anemia (07/06/16) Mild alcohol abuse (03/26/15) Olecranon bursitis Peripheral vascular disease of foot (05/31/17) Pneumonia Primary adenocarcinoma of upper lobe of right lung Sinusitis Stenosis of left femoral artery Stroke Substance abuse Syncope Syncope and collapse (09/10/12) Tobacco use disorder, continuous (09/10/12) Transient cerebral ischemia (04/23/12) Traumatic compression fracture of seventh thoracic vertebra, sequela (10/09/16) Tubular adenoma Urinary retention Surgical History History of carpal tunnel repair (03/02/15) History of cataract removal with insertion of prosthetic lens (02/16/15) History of cataract removal with insertion of prosthetic lens (03/09/15) History of tonsillectomy Status post appendectomy Status post colonoscopy (10/06/09) Status post lobectomy of lung (~04/2020) Status post repair of hydrocele (05/22/11) Family History Brother Lung cancer Father Lung cancer Mother Migraines Social History marital status: number of children: 2 household members: spouse Smoking Status: Current every day smoker Tobacco: How many years used: 69 quit status: considering quitting alcohol intake: current caffeine: Yes Smoking Status: Current every day smoker alcohol intake frequency: 3 or more drinks per day Substance Use Type: does not use Exam <EDUARDO Shay - Last Filed: 10/27/21 19:40> Narrative Exam Narrative: Independently reviewed vitals signs and nursing notes. General: cooperative, comfortable, in no acute distress, well developed and well groomed, elderly and frail, hard of hearing Head: atraumatic, symmetrical facial expressions Neck: supple, atraumatic, without lymphadenopathy, JVP 45 cm, no JVD Eyes: pupils equal round and reactive, EOMI, conjunctiva normal Nose: nares patent, no rhinorrhea Mouth/Throat: uvula midline, moist mucus membranes Cardiovascular: regular rate and rhythm, +1 edema in bilateral lower extremities warm extremities, normal S1-S2, systolic murmur auscultated over tricuspid area, no rubs or gallops. Carotid, femoral, DP and 80 pulses are all 2+ bilaterally without bruit. Respiratory: normal effort, able to speak in complete sentences, no audible wheezing, stridor, or rales. No retractions or tachypnea. GI: abdomen soft, nontender to palpation, nondistended, no masses, no exquisite tenderness with exam, without guarding or rebound. MSK: moves all extremities, ambulatory w/steady gait, neurovascularly intact, no weakness Skin: brisk capillary refill, no rash, no erythema, no clubbing, cyanosis, or significant edema Neuro: normal speech and cognition, A&O x3, normal tone Psych: mental status is grossly normal, congruent mood, normal affect, pleasant and cooperative Initial Vital Signs Initial Vital Signs: Vital Signs Temperature 96 F L 10/27/21 15:52 Pulse Rate 62 10/27/21 15:52 Respiratory Rate 20 10/27/21 15:52 Blood Pressure 109/54 L 10/27/21 15:52 Pulse Oximetry 94 10/27/21 15:52 <Tamiko Camara DO - Last Filed: 10/27/21 20:51> Initial Vital Signs Initial Vital Signs: Vital Signs Temperature 96 F L 10/27/21 15:52 Pulse Rate 62 10/27/21 15:52 Respiratory Rate 20 10/27/21 15:52 Blood Pressure 109/54 L 10/27/21 15:52 Pulse Oximetry 94 10/27/21 15:52 Course <EDUARDO Shay - Last Filed: 10/27/21 19:40> Orders Ordered: ED Orders 10/27/21 15:58 XR chest 2V Stat EKG-12 Lead Stat Measure peak expiratory flow ONCE RT Consult Eval and Treat Now 10/27/21 16:00 BNP [NT-proBNP (BNP-Adult 18+)] Stat Complete Blood Count AUTO DIFF Stat Comprehensive Metabolic Panel Stat Lactate (Lactic Acid) Stat Procalcitonin Stat Troponin & CK Cardiac Panel Stat 10/27/21 16:36 COVID19 -Nasal RAPID/Pre-Proc Stat Discontinued Medications Acetaminophen (Acetaminophen 325 Mg Tablet) 975 mg PO NOW ONE Stop: 10/27/21 18:40 Last Admin: 10/27/21 19:00 Dose: 975 mg Documented by: GINETTE Albuterol/Ipratropium (Albuterol/Ipratropium 3 Ml Ampul) 3 ml INH NOW ONE Stop: 10/27/21 17:05 Last Admin: 10/27/21 17:44 Dose: 3 ml Documented by: LUIZ Doxycycline Hyclate (Doxycycline Hyclate 100 Mg Tablet) 100 mg PO NOW ONE Stop: 10/27/21 18:40 Last Admin: 10/27/21 19:00 Dose: 100 mg Documented by: GINETTE Furosemide (Furosemide 40 Mg/4 Ml Vial) 40 mg IV NOW ONE Stop: 10/27/21 16:48 Last Admin: 10/27/21 17:39 Dose: Not Given Documented by: KANNAN Furosemide (Furosemide 40 Mg/4 Ml Vial) 40 mg IV NOW ONE Stop: 10/27/21 17:31 Last Admin: 10/27/21 17:40 Dose: 40 mg Documented by: KANNAN Furosemide (Furosemide 40 Mg/4 Ml Vial) 40 mg IV NOW ONE Stop: 10/27/21 17:43 Last Admin: 10/27/21 18:06 Dose: Not Given Documented by: KANNAN Vital Signs Vital signs: Vital Signs - 8 hr 10/27/21 15:52 10/27/21 17:35 10/27/21 17:40 Temperature 96 F L Pulse Rate 62 64 63 Respiratory Rate 20 15 19 Blood Pressure 109/54 L 134/66 Pulse Oximetry 94 94 95 10/27/21 17:44 10/27/21 18:00 10/27/21 18:01 Temperature Pulse Rate 60 62 62 Respiratory Rate 16 25 H 24 Blood Pressure 147/63 H Pulse Oximetry 93 94 95 10/27/21 18:02 10/27/21 19:13 Temperature 96.6 F L Pulse Rate 62 Respiratory Rate 22 Blood Pressure 129/61 Pulse Oximetry 95 93 <Tamiko Camara DO - Last Filed: 10/27/21 20:51> Orders Ordered: ED Orders 10/27/21 15:58 XR chest 2V Stat EKG-12 Lead Stat Measure peak expiratory flow ONCE RT Consult Eval and Treat Now 10/27/21 16:00 BNP [NT-proBNP (BNP-Adult 18+)] Stat Complete Blood Count AUTO DIFF Stat Comprehensive Metabolic Panel Stat Lactate (Lactic Acid) Stat Procalcitonin Stat Troponin & CK Cardiac Panel Stat 10/27/21 16:36 COVID19 -Nasal RAPID/Pre-Proc Stat Discontinued Medications Acetaminophen (Acetaminophen 325 Mg Tablet) 975 mg PO NOW ONE Stop: 10/27/21 18:40 Last Admin: 10/27/21 19:00 Dose: 975 mg Documented by: GINETTE Albuterol/Ipratropium (Albuterol/Ipratropium 3 Ml Ampul) 3 ml INH NOW ONE Stop: 10/27/21 17:05 Last Admin: 10/27/21 17:44 Dose: 3 ml Documented by: LUIZ Doxycycline Hyclate (Doxycycline Hyclate 100 Mg Tablet) 100 mg PO NOW ONE Stop: 10/27/21 18:40 Last Admin: 10/27/21 19:00 Dose: 100 mg Documented by: GINETTE Furosemide (Furosemide 40 Mg/4 Ml Vial) 40 mg IV NOW ONE Stop: 10/27/21 16:48 Last Admin: 10/27/21 17:39 Dose: Not Given Documented by: KANNAN Furosemide (Furosemide 40 Mg/4 Ml Vial) 40 mg IV NOW ONE Stop: 10/27/21 17:31 Last Admin: 10/27/21 17:40 Dose: 40 mg Documented by: KANNAN Furosemide (Furosemide 40 Mg/4 Ml Vial) 40 mg IV NOW ONE Stop: 10/27/21 17:43 Last Admin: 10/27/21 18:06 Dose: Not Given Documented by: KANNAN Vital Signs Vital signs: Vital Signs - 8 hr 10/27/21 15:52 10/27/21 17:35 10/27/21 17:40 Temperature 96 F L Pulse Rate 62 64 63 Respiratory Rate 20 15 19 Blood Pressure 109/54 L 134/66 Pulse Oximetry 94 94 95 10/27/21 17:44 10/27/21 18:00 10/27/21 18:01 Temperature Pulse Rate 60 62 62 Respiratory Rate 16 25 H 24 Blood Pressure 147/63 H Pulse Oximetry 93 94 95 10/27/21 18:02 10/27/21 19:13 Temperature 96.6 F L Pulse Rate 62 Respiratory Rate 22 Blood Pressure 129/61 Pulse Oximetry 95 93 MDM - SOB/Dyspnea <Shey Burrows, [facility] - Last Filed: 10/27/21 19:40> Lab Data Result diagrams: 10/27/21 16:00 10/27/21 16:00 Labs: Lab Results 10/27/21 10/27/21 10/27/21 Range/Units 16:00 16:00 16:00 WBC 8.4 (4.5-11.0) X10^3/uL RBC 2.29 L (4.5-5.9) X10^6/uL Hgb 8.1 L (13.5-17.5) g/dL Hct 24.6 L (41-53) % MCV 107.6 H (80-100) fL MCH 35.2 H (26-34) PG MCHC 32.7 (30-36) % RDW 21.1 H (11.6-14.8) % Plt Count 237 (150-400) X10^3/uL Neut % (Auto) Not Reportable Lymph % (Auto) Not Reportable [place] % (Auto) Not Reportable Eos % (Auto) Not Reportable Baso % (Auto) Not Reportable Neut # (Auto) Not Reportable Lymph # (Auto) Not Reportable [place] # (Auto) Not Reportable Eos # (Auto) Not Reportable Baso # (Auto) Not Reportable Total Counted 100 Seg Neutrophils % 61.0 (38-70) % Band Neutrophils % 7.0 (3-7) % Lymphocytes % (Manual) 11.0 L (25-45) % Monocytes % (Manual) 19.0 H (2-11) % Metamyelocytes % 2.0 H (-0) % Neutrophils # (Manual) 5712 (4191-4126) /uL RBC Morphology See below Macrocytosis 1+ H Schistocytes 1+ H Sodium 142 (137-145) mmol/L Potassium 4.8 (3.4-5.1) mmol/L Chloride 107 (98-107) mmol/L Carbon Dioxide 28 (22-32) mmol/L BUN 39 H (9-20) mg/dL Creatinine 2.20 H (0.66-1.25) mg/dL Estimated GFR 29 L (>60) mL/min BUN/Creatinine Ratio 17.7 (6-22) Glucose 107 (80-110) mg/dL Lactate 1.7 (0.7-2.1) mmol/L Calcium 9.5 (8.4-10.2) mg/dL Total Bilirubin 0.5 (0.2-1.3) mg/dL AST 25 (17-59) IU/L ALT 16 (<50) IU/L Alkaline Phosphatase 112 (38-126) U/L Total Creatine Kinase (55-170) U/L CK-MB (CK-2) CK-MB (CK-2) Rel Index Troponin I (0.01-0.034) ng/mL NT-Pro-B Natriuret Pep (<450) pg/mL Total Protein 7.5 (6.3-8.2) g/dL Albumin 3.8 (3.5-5.0) g/dL Globulin 3.7 (1.7-4.1) g/dL Albumin/Globulin Ratio 1.0 (1.0-2.8) Procalcitonin (<0.5) ng/mL SARS-CoV-2 (PCR) (Negative) 10/27/21 10/27/21 10/27/21 Range/Units 16:00 16:00 16:00 WBC (4.5-11.0) X10^3/uL RBC (4.5-5.9) X10^6/uL Hgb (13.5-17.5) g/dL Hct (41-53) % MCV (80-100) fL MCH (26-34) PG MCHC (30-36) % RDW (11.6-14.8) % Plt Count (150-400) X10^3/uL Neut % (Auto) Lymph % (Auto) [place] % (Auto) Eos % (Auto) Baso % (Auto) Neut # (Auto) Lymph # (Auto) [place] # (Auto) Eos # (Auto) Baso # (Auto) Total Counted Seg Neutrophils % (38-70) % Band Neutrophils % (3-7) % Lymphocytes % (Manual) (25-45) % Monocytes % (Manual) (2-11) % Metamyelocytes % (-0) % Neutrophils # (Manual) (3288-5220) /uL RBC Morphology Macrocytosis Schistocytes Sodium (137-145) mmol/L Potassium (3.4-5.1) mmol/L Chloride (98-107) mmol/L Carbon Dioxide (22-32) mmol/L BUN (9-20) mg/dL Creatinine (0.66-1.25) mg/dL Estimated GFR (>60) mL/min BUN/Creatinine Ratio (6-22) Glucose (80-110) mg/dL Lactate (0.7-2.1) mmol/L Calcium (8.4-10.2) mg/dL Total Bilirubin (0.2-1.3) mg/dL AST (17-59) IU/L ALT (<50) IU/L Alkaline Phosphatase (38-126) U/L Total Creatine Kinase 32 L (55-170) U/L CK-MB (CK-2) TNP CK-MB (CK-2) Rel Index TNP Troponin I < 0.012 (0.01-0.034) ng/mL NT-Pro-B Natriuret Pep 1530 H (<450) pg/mL Total Protein (6.3-8.2) g/dL Albumin (3.5-5.0) g/dL Globulin (1.7-4.1) g/dL Albumin/Globulin Ratio (1.0-2.8) Procalcitonin 0.66 H (<0.5) ng/mL SARS-CoV-2 (PCR) (Negative) 10/27/21 Range/Units 16:36 WBC (4.5-11.0) X10^3/uL RBC (4.5-5.9) X10^6/uL Hgb (13.5-17.5) g/dL Hct (41-53) % MCV (80-100) fL MCH (26-34) PG MCHC (30-36) % RDW (11.6-14.8) % Plt Count (150-400) X10^3/uL Neut % (Auto) Lymph % (Auto) [place] % (Auto) Eos % (Auto) Baso % (Auto) Neut # (Auto) Lymph # (Auto) [place] # (Auto) Eos # (Auto) Baso # (Auto) Total Counted Seg Neutrophils % (38-70) % Band Neutrophils % (3-7) % Lymphocytes % (Manual) (25-45) % Monocytes % (Manual) (2-11) % Metamyelocytes % (-0) % Neutrophils # (Manual) (4070-5533) /uL RBC Morphology Macrocytosis Schistocytes Sodium (137-145) mmol/L Potassium (3.4-5.1) mmol/L Chloride (98-107) mmol/L Carbon Dioxide (22-32) mmol/L BUN (9-20) mg/dL Creatinine (0.66-1.25) mg/dL Estimated GFR (>60) mL/min BUN/Creatinine Ratio (6-22) Glucose (80-110) mg/dL Lactate (0.7-2.1) mmol/L Calcium (8.4-10.2) mg/dL Total Bilirubin (0.2-1.3) mg/dL AST (17-59) IU/L ALT (<50) IU/L Alkaline Phosphatase (38-126) U/L Total Creatine Kinase (55-170) U/L CK-MB (CK-2) CK-MB (CK-2) Rel Index Troponin I (0.01-0.034) ng/mL NT-Pro-B Natriuret Pep (<450) pg/mL Total Protein (6.3-8.2) g/dL Albumin (3.5-5.0) g/dL Globulin (1.7-4.1) g/dL Albumin/Globulin Ratio (1.0-2.8) Procalcitonin (<0.5) ng/mL SARS-CoV-2 (PCR) Negative (Negative) Imaging Data Chest x-ray: Radiologist's Impression: PROCEDURE:? XR CHEST 2V ? INDICATIONS:? shortness of breath ? TECHNIQUE:? 2 views of the chest were acquired.? ? COMPARISON:? [facility], CT, CT CHEST ABD PEL WO CON, 09/24/2021, 11:26.? [facility], CR, XR CHEST 1V, 09/07/2021, 17:42.? [facility], CR, XR CHEST 1V, 09/24/2021, 10:38. ? FINDINGS:? ? Surgical changes and devices:? A single lead pacer device is seen, which appears stable. ? Lungs and pleura:? The lungs are hyperexpanded.? Abnormal interstitial prominence can be seen throughout, right worse than left.? There are small bilateral pleural effusions seen, right worse than left.? No pneumothorax is seen. ? Mediastinum:? The cardiac contours are at the upper limits of normal. The aorta demonstrates calcification and tortuosity. ? Bones and chest wall:? No suspicious bony abnormalities.? Age-appropriate bony degenerative changes are seen.? Accentuated thoracic kyphosis is seen, with midthoracic anterior wedge deformities.? The rib fractures that can be seen on the prior CT are not seen on this plain film study.? Mild dextroconvex scoliotic curvature is seen. ? ? Soft tissues appear unremarkable.? ? ? IMPRESSION:? Abnormal interstitial prominence and pleural effusions.? These findings are progressed compared to the 09/24/2021 examination.? Please consider fluid overload. ? ? Dictated by: Abdirahman Alvarenga M.D. on 10/27/2021 at 15:29 ? ? Approved by: Abdirahman Alvarenga M.D. on 10/27/2021 at 15:31 ? ECG Data Interpretation: EKG independently reviewed by myself and Dr. Camara which reveals normal sinus rhythm at [61] bpm atrial paced, regular axis intervals, flipped T-waves in lead 3 and AVF. No STEMI, ST segment changes, arrhythmia, or acute ischemic changes. Patient was seen last by Cardiology on 10/21/2021. MDM Narrative Medical decision making narrative: This is an 85-year-old male with history of bradycardia, CAD with 80% of mid LAD, hypertension, hyperlipidemia, smoker, chronic anemia, mild aortic stenosis, lung cancer with resection in 2019, COPD recent admission to the hospital with pneumonia on 09/24/2021. Chest x-ray shows abnormal interstitial prominence and pleural effusions, progressed since the 09/24/2021 chest x-ray, suggesting overload. The pleural effusions are bilateral and small, no pneumothorax, cardiac contour is upper limits of normal. Lab work is significant for baseline of 1.8 to 2.2 today, BUN 39, GFR 29, lactate 1.7, no elevation in liver enzymes or T bili, BNP of 1530 above his last result of 902 on 09/24/2021. Is elevated is 0.66 which is above his last results of 0.44 on 09/24/2021. This supports of likely pneumonia diagnosis, he was given doxycycline for this and prescribed 5 days of doxycycline. Patient was given 40 mg of Lasix for his elevated BNP, pleural effusions, and reported shortness of breath. He was given a prescription of 20 mg daily for the next 3 days.. Patient has a history of anemia with a baseline hemoglobin of 8, last hematocrit of 24, today he is 8.1 and 24.6. Patient does not have any signs of sepsis, he is not in any distress, recommend close follow-up with his primary care provider and a recheck in 1-2 days. Patient was given strict return precautions for any worsening, wheezing, shortness of breath or feeling worse than he does today. Multiple causes of chest pain considered including [place], PE, pneumothorax, pneumonia, aortic dissection, and pleurisy. Patient reports no radiation, no diaphoresis, no provocation with exertion, and no vomiting. Patient is appropriate and amenable to discharge home. Vital signs are stable on repeat examination is unremarkable. Patient has been informed of results. Patient has been given strict return to ER precautions for any new or worsening symptoms. Patient understands to follow up closely with outpatient providers as instructed. Patient understands plan and agrees to discharge home. All questions and concerns answered at this time. <Tamiko Camara, DO - Last Filed: 10/27/21 20:51> Lab Data Labs: Lab Results 10/27/21 10/27/21 10/27/21 Range/Units 16:00 16:00 16:00 WBC 8.4 (4.5-11.0) X10^3/uL RBC 2.29 L (4.5-5.9) X10^6/uL Hgb 8.1 L (13.5-17.5) g/dL Hct 24.6 L (41-53) % MCV 107.6 H (80-100) fL MCH 35.2 H (26-34) PG MCHC 32.7 (30-36) % RDW 21.1 H (11.6-14.8) % Plt Count 237 (150-400) X10^3/uL Neut % (Auto) Not Reportable Lymph % (Auto) Not Reportable [place] % (Auto) Not Reportable Eos % (Auto) Not Reportable Baso % (Auto) Not Reportable Neut # (Auto) Not Reportable Lymph # (Auto) Not Reportable [place] # (Auto) Not Reportable Eos # (Auto) Not Reportable Baso # (Auto) Not Reportable Total Counted 100 Seg Neutrophils % 61.0 (38-70) % Band Neutrophils % 7.0 (3-7) % Lymphocytes % (Manual) 11.0 L (25-45) % Monocytes % (Manual) 19.0 H (2-11) % Metamyelocytes % 2.0 H (-0) % Neutrophils # (Manual) 5712 (3957-4671) /uL RBC Morphology See below Macrocytosis 1+ H Schistocytes 1+ H Sodium 142 (137-145) mmol/L Potassium 4.8 (3.4-5.1) mmol/L Chloride 107 (98-107) mmol/L Carbon Dioxide 28 (22-32) mmol/L BUN 39 H (9-20) mg/dL Creatinine 2.20 H (0.66-1.25) mg/dL Estimated GFR 29 L (>60) mL/min BUN/Creatinine Ratio 17.7 (6-22) Glucose 107 (80-110) mg/dL Lactate 1.7 (0.7-2.1) mmol/L Calcium 9.5 (8.4-10.2) mg/dL Total Bilirubin 0.5 (0.2-1.3) mg/dL AST 25 (17-59) IU/L ALT 16 (<50) IU/L Alkaline Phosphatase 112 (38-126) U/L Total Creatine Kinase (55-170) U/L CK-MB (CK-2) CK-MB (CK-2) Rel Index Troponin I (0.01-0.034) ng/mL NT-Pro-B Natriuret Pep (<450) pg/mL Total Protein 7.5 (6.3-8.2) g/dL Albumin 3.8 (3.5-5.0) g/dL Globulin 3.7 (1.7-4.1) g/dL Albumin/Globulin Ratio 1.0 (1.0-2.8) Procalcitonin (<0.5) ng/mL SARS-CoV-2 (PCR) (Negative) 10/27/21 10/27/21 10/27/21 Range/Units 16:00 16:00 16:00 WBC (4.5-11.0) X10^3/uL RBC (4.5-5.9) X10^6/uL Hgb (13.5-17.5) g/dL Hct (41-53) % MCV (80-100) fL MCH (26-34) PG MCHC (30-36) % RDW (11.6-14.8) % Plt Count (150-400) X10^3/uL Neut % (Auto) Lymph % (Auto) [place] % (Auto) Eos % (Auto) Baso % (Auto) Neut # (Auto) Lymph # (Auto) [place] # (Auto) Eos # (Auto) Baso # (Auto) Total Counted Seg Neutrophils % (38-70) % Band Neutrophils % (3-7) % Lymphocytes % (Manual) (25-45) % Monocytes % (Manual) (2-11) % Metamyelocytes % (-0) % Neutrophils # (Manual) (3578-8145) /uL RBC Morphology Macrocytosis Schistocytes Sodium (137-145) mmol/L Potassium (3.4-5.1) mmol/L Chloride (98-107) mmol/L Carbon Dioxide (22-32) mmol/L BUN (9-20) mg/dL Creatinine (0.66-1.25) mg/dL Estimated GFR (>60) mL/min BUN/Creatinine Ratio (6-22) Glucose (80-110) mg/dL Lactate (0.7-2.1) mmol/L Calcium (8.4-10.2) mg/dL Total Bilirubin (0.2-1.3) mg/dL AST (17-59) IU/L ALT (<50) IU/L Alkaline Phosphatase (38-126) U/L Total Creatine Kinase 32 L (55-170) U/L CK-MB (CK-2) TNP CK-MB (CK-2) Rel Index TNP Troponin I < 0.012 (0.01-0.034) ng/mL NT-Pro-B Natriuret Pep 1530 H (<450) pg/mL Total Protein (6.3-8.2) g/dL Albumin (3.5-5.0) g/dL Globulin (1.7-4.1) g/dL Albumin/Globulin Ratio (1.0-2.8) Procalcitonin 0.66 H (<0.5) ng/mL SARS-CoV-2 (PCR) (Negative) 10/27/21 Range/Units 16:36 WBC (4.5-11.0) X10^3/uL RBC (4.5-5.9) X10^6/uL Hgb (13.5-17.5) g/dL Hct (41-53) % MCV (80-100) fL MCH (26-34) PG MCHC (30-36) % RDW (11.6-14.8) % Plt Count (150-400) X10^3/uL Neut % (Auto) Lymph % (Auto) [place] % (Auto) Eos % (Auto) Baso % (Auto) Neut # (Auto) Lymph # (Auto) [place] # (Auto) Eos # (Auto) Baso # (Auto) Total Counted Seg Neutrophils % (38-70) % Band Neutrophils % (3-7) % Lymphocytes % (Manual) (25-45) % Monocytes % (Manual) (2-11) % Metamyelocytes % (-0) % Neutrophils # (Manual) (0851-8423) /uL RBC Morphology Macrocytosis Schistocytes Sodium (137-145) mmol/L Potassium (3.4-5.1) mmol/L Chloride (98-107) mmol/L Carbon Dioxide (22-32) mmol/L BUN (9-20) mg/dL Creatinine (0.66-1.25) mg/dL Estimated GFR (>60) mL/min BUN/Creatinine Ratio (6-22) Glucose (80-110) mg/dL Lactate (0.7-2.1) mmol/L Calcium (8.4-10.2) mg/dL Total Bilirubin (0.2-1.3) mg/dL AST (17-59) IU/L ALT (<50) IU/L Alkaline Phosphatase (38-126) U/L Total Creatine Kinase (55-170) U/L CK-MB (CK-2) CK-MB (CK-2) Rel Index Troponin I (0.01-0.034) ng/mL NT-Pro-B Natriuret Pep (<450) pg/mL Total Protein (6.3-8.2) g/dL Albumin (3.5-5.0) g/dL Globulin (1.7-4.1) g/dL Albumin/Globulin Ratio (1.0-2.8) Procalcitonin (<0.5) ng/mL SARS-CoV-2 (PCR) Negative (Negative) Discharge Plan Departure Patient Disposition: Home Clinical Impression: Acute exacerbation of CHF (congestive heart failure) Qualifiers: Heart failure type: unspecified Qualified Code(s): I50.9 - Heart failure, unspecified Pneumonia Qualifiers: Pneumonia type: due to unspecified organism Laterality: right Lung location: lower lobe of lung Qualified Code(s): J18.9 - Pneumonia, unspecified organism Instructions: Pneumonia-Adult, Heart Failure Activity Restrictions/Additional Instructions: *You have been diagnosed with CHF exacerbation (fluid overload), and will treat you for pneumonia additionally. 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 Please do not take the magnesium and the furosemide together. Please follow-up with your primary care provider in the next couple of days, please call her and schedule a follow-up. Please come back to the emergency department if you have worsening wheezing, shortness of breath, COPD symptoms. Thank you for trusting us with your care, I hope you start feeling better soon. *What to do: *Please continue to take your regular medications as directed. [x ] New medication prescriptions sent to your pharmacy: [ [facility]] [ ] New medication written as a paper prescription [ ] No new medications given *Please follow up with your primary care provider in 2-3 days, call for an appointment. Let them know you were seen in the Emergency Department and that we asked that you be seen for follow-up. We will electronically transmit a record of today's note if your PCP is in our system *If you do not have a primary care provider please contact [phone] to establish care with one of the [facility] primary care providers. *Return to Emergency Department if you should have any new, worsening or concerning symptoms, such as [fever greater than 101F, chills, worsening pain, persistent vomiting or other bothersome symptoms] Prescriptions: New doxycycline hyclate 100 mg tablet 100 mg PO BID 5 Days Qty: 10 0RF furosemide [Lasix] 20 mg tablet 10 mg PO QAM Qty: 3 0RF lidocaine 5 % adhesive patch,medicated 1 patch topical DAILY Qty: 15 0RF Rx Instructions: leave on most painful area for up to 12 hrs diclofenac sodium 1 % gel 2 g topical QID Qty: 100 0RF Rx Instructions: apply to single elbow, wrist or hand; for hand includes palm/fingers/back of hand doxycycline hyclate 100 mg tablet 100 mg PO BID 5 Days Qty: 10 0RF diclofenac sodium 1 % gel 2 g topical QID Qty: 100 0RF Rx Instructions: apply to single elbow, wrist or hand; for hand includes palm/fingers/back of hand furosemide [Lasix] 20 mg tablet 20 mg PO DAILY Qty: 3 0RF No Action fluticasone furoate-vilanterol 200-25 mcg/dose blister with device 1 inh INHALATION DAILY Qty: 60 6RF albuterol sulfate [Ventolin HFA] 90 mcg/actuation HFA aerosol inhaler See Rx Instructions .ROUTE .COMPLEX Qty: 18 2RF Dose Instruction: INHALE 2 PUFFS INTO THE LUNGS EVERY 4 HOURS NEEDED FOR SHORTNESS OF BREATH OR WHEEZING. ADMINISTER WITH SPACER Rx Instructions: INHALE 2 PUFFS INTO THE LUNGS EVERY 4 HOURS NEEDED FOR SHORTNESS OF BREATH OR WHEEZING. ADMINISTER WITH SPACER Incruse Ellipta 62.5 mcg/actuation blister with device See Rx Instructions .ROUTE .COMPLEX Qty: 30 3RF Dose Instruction: INHALE 1 PUFF INTO THE LUNGS EVERY DAY Rx Instructions: INHALE 1 PUFF INTO THE LUNGS EVERY DAY rosuvastatin 5 mg tablet See Rx Instructions .ROUTE .COMPLEX Qty: 90 0RF Dose Instruction: TAKE 1 TABLET BY MOUTH DAILY Rx Instructions: TAKE 1 TABLET BY MOUTH DAILY amlodipine 5 mg tablet See Rx Instructions .ROUTE .COMPLEX Qty: 180 3RF Dose Instruction: TAKE 1 TABLET BY MOUTH TWICE DAILY Rx Instructions: TAKE 1 TABLET BY MOUTH TWICE DAILY aspirin 81 mg tablet,chewable 81 mg PO DAILY 0RF omeprazole 20 mg capsule,delayed release(DR/EC) 20 mg PO DAILY 0RF multivitamin [Tab-[id number]] Tablet 1 tab PO DAILY Qty: 30 0RF thiamine HCl (vitamin B1) [Vitamin B-1] 100 mg Tablet 100 mg PO DAILY Qty: 30 0RF magnesium 250 mg Tablet 250 mg PO DAILY 0RF Breo Ellipta 200-25 mcg/dose Blister With Device 1 inh INHALATION DAILY 0RF lidocaine [Blue-Emu Lidocaine Patch] 4 % Adhesive Patch,Medicated 1 patch TOPICAL DAILY PRN (Reason: Pain (Scale Score 4-6)) 0RF Referrals: Valarie Noel MD [Primary Care Provider] - <Tamiko Camara DO - Last Filed: 10/27/21 20:51> Cosign ED Attending Terenceature Attestation: I was immediately available in the department for consultation. Documentation has been reviewed. I agree with assessment and plan.
[2021-10-27 17:23] LABS: Creatine Kinase 32 U/L (55-170)
[2021-10-27 17:33] LABS: NT-proBNP (BNP-Adult 18+) 1530 pg/mL (<450)
[2021-10-27 17:36] LABS: Troponin I < 0.012 ng/mL (0.01-0.034)
[2021-10-27] MEDS: FUROSEMIDE 40 MG/4 ML VIAL IV (17:40)
[2021-10-27] MEDS: ALBUTEROL/IPRATROPIUM 3 ML AMPUL INH (17:44)
[2021-10-27 18:17] LABS: Procalcitonin 0.66 ng/mL (<0.5)
[2021-10-27] MEDS: DOXYCYCLINE HYCLATE 100 MG TABLET PO (19:00)
[2021-10-27] MEDS: ACETAMINOPHEN 325 MG TABLET 975 MG PO (19:00)
== END 2021-10-27 19:18 | disposition home or self-care (01) ==
PROVIDERS: Emergency Medicine; Emergency Provider Nurse Practitioner Critical Care Medicine; PCP Family Medicine
DX: I11.0 Hypertensive heart disease with heart failure (principal); I50.9 Heart failure, unspecified; J18.9 Pneumonia, unspecified organism; F17.200 Nicotine dependence, unspecified, uncomplicated; Z20.822 Contact with and (suspected) exposure to COVID-19; Z66 Do not resuscitate
CPT/HCPCS: 36415; 71046; 80053; 82550; 83605; 83880; 84145; 84484; 85007; 85025; 87635; 93005; 93010; 94640; 96374; 99284; C9803; J1940

== ENCOUNTER 2021-11-08 06:40 | Inpatient (IN) | payer MEDICARE, OTHER, SELFPAY ==
[2021-10-03 11:57] VITALS: BMI 22.9
[2021-11-08] VITALS (24 sets, daily range): BP systolic 97–154; BP diastolic 46–79; PULSE 60–83; RESP 15–19; TEMP 35.7–36.6; O2SAT 90–100; BMI 24.7
--- NOTE | 2021-11-08 06:51 | DI.RAD.S_ITS ---
PROCEDURE: XR CHEST 2V INDICATIONS: SOB, hemoptysis TECHNIQUE: 2 views of the chest were acquired. COMPARISON: [facility], CT, CT CHEST ABD PEL WO CON, 09/24/2021, 11:26. [facility], CR, XR CHEST 1V, 09/24/2021, 10:38. [facility], CR, XR CHEST 2V, 10/27/2021, 15:54. FINDINGS: Surgical changes and devices: There is a cardiac pacemaker. Lungs and pleura: Airspace opacity in the right upper lobe and right lower lobe consistent with pneumonia. Bilateral diffuse interstitial prominence. Small pleural effusions bilaterally. No pneumothorax. Mediastinum: Mediastinal contours are normal. Heart size is normal. Bones and chest wall: No suspicious bony abnormalities. Soft tissues appear unremarkable. IMPRESSION: 1. Opacities in the right upper lobe and right lower lobe suspicious for multifocal pneumonia. 2. Bilateral interstitial prominence and small pleural effusions. Superimposed CHF may be present. Dictated by: Teresa Yni M.D. on 11/08/2021 at 8:12 Approved by: Teresa Yin M.D. on 11/08/2021 at 8:13
--- NOTE | 2021-11-08 06:51 | DI.RAD.S_ITS ---
PROCEDURE: XR KNEE LT 3V INDICATIONS: fall with knee pain/swelling TECHNIQUE: 3 views of the knee were acquired. COMPARISON: None. FINDINGS: Bones: No fractures or dislocations. No suspicious bony lesions. Mild degenerative joint disease. Soft tissues: Small joint effusion. Vascular calcifications. IMPRESSION: 1. No acute osseous abnormalities. If clinical symptoms persist or clinical suspicion for pathology is high, a repeat examination in 7-10 days, or advanced imaging such as CT or MRI is suggested for further evaluation. 2. Mild osteoarthritis. 3. Small knee joint effusion. Dictated by: Teresa Yin M.D. on 11/08/2021 at 8:15 Approved by: Teresa Yin M.D. on 11/08/2021 at 8:17
--- NOTE | 2021-11-08 06:51 | DI.RAD.S_ITS ---
PROCEDURE: XR LUMBAR SPINE 2-3V INDICATIONS: fall with lumbar pain TECHNIQUE: 3 views of the lumbar spine were acquired. COMPARISON: [facility], CT, CT CHEST ABD PEL WO CON, 09/24/2021, 11:26. [facility], CR, XR LUMBAR SPINE 2-3V, 10/21/2020, 18:12. FINDINGS: Bones: 5 [id number] vertebrae are present. There is normal bony alignment. There is mild compression fracture of T11, new since 09/24/2021. Mild chronic compression deformity of T12 and L2. No suspicious bony lesions. 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 Soft tissues: Overlying bowel gas pattern is normal. Severe atherosclerotic calcifications. IMPRESSION: 1. Mild acute compression fracture of T11. 2. Mild chronic compression fracture of T12 and L2. 3. 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 Dictated by: Teresa Yin M.D. on 11/08/2021 at 8:17 Approved by: Teresa Yin M.D. on 11/08/2021 at 8:21
--- NOTE | 2021-11-08 06:51 | DI.RAD.S_ITS ---
PROCEDURE: XR HIP W PEL IF DONE LT 2V INDICATIONS: fall with hip/knee pain TECHNIQUE: AP pelvis with lateral view(s) of the left hip(s). COMPARISON: [facility], CR, XR HIP W PEL IF DONE RT 2V, 09/19/2021, 15:44. FINDINGS: Bones: No fractures or dislocations. Pelvic ring appears intact. No suspicious bony lesions. Soft tissues: The visualized bowel gas pattern is normal. Vascular calcifications consistent with atherosclerosis. IMPRESSION: 1. No acute osseous abnormalities. If clinical symptoms persist or clinical suspicion for pathology is high, a repeat examination in 7-10 days, or advanced imaging such as CT or MRI is suggested for further evaluation. Dictated by: Teresa Yin M.D. on 11/08/2021 at 8:14 Approved by: Teresa Yin M.D. on 11/08/2021 at 8:15
--- NOTE | 2021-11-08 07:12 | ED_ITS ---
HPI - Fall General Chief Complaint: Fall Stated Complaint: Fell and having knee/back pain. spitting blood Time Seen by Provider: 11/08/21 06:51 Source: patient and family Mode of arrival: Ambulatory History of Present Illness HPI Narrative: 85-year-old male daily smoker with COPD, CHF, chronic kidney disease and bradycardia presents with a chief complaint of left knee pain after a fall yesterday. He normally ambulates with a walker and uses oxygen at home at least at night and was attempting to switch the tubing and had tripped and fallen, landing largely on his left knee but also his left hip. He denies any head, neck or back pain which is new but does think he might of reaggravated a known L1 compression fracture. He denies any numbness, tingling or weakness. He denies any loss of control of bowel or bladder. He has felt poorly for at least the past day and states this is general weakness and cough. He denies any short ness of breath out of the normal for him but states he has had some hemoptysis off and on, he does have known adenocarcinoma of the right lung. He has had no fever or chills and denies runny nose, sore throat Related Data Home Medications Medication Instructions Recorded Confirmed fluticasone furoate 200 1 inh INHALATION DAILY 11/03/20 10/06/21 mcg-vilanterol 25 mcg/dose inhalation powder (Breo Ellipta) lidocaine 4 % topical patch 1 patch TOPICAL DAILY PRN 11/03/20 10/06/21 (Blue-Emu Lidocaine Patch) magnesium 250 mg tablet 250 mg PO DAILY 12/02/20 10/06/21 aspirin 81 mg chewable tablet 81 mg PO DAILY tab 06/17/21 10/06/21 omeprazole 20 mg capsule,delayed 20 mg PO DAILY cap 06/17/21 10/06/21 release Previous Rx's Medication Instructions Recorded multivitamin (Tab-A-Iqra) 1 tab PO DAILY #30 tab 09/14/19 thiamine HCl (vitamin B1) 100 mg 100 mg PO DAILY #30 tab 09/14/19 tablet (Vitamin B-1) fluticasone furoate 200 1 inh INHALATION DAILY #60 each 03/16/21 mcg-vilanterol 25 mcg/dose inhalation powder albuterol sulfate 90 mcg/actuation See Rx Instructions .ROUTE 03/25/21 aerosol inhaler (Ventolin HFA) .COMPLEX #18 gram umeclidinium 62.5 mcg/actuation See Rx Instructions .ROUTE 04/14/21 blister powder for inhalation .COMPLEX #30 ea (Incruse Ellipta) rosuvastatin 5 mg tablet See Rx Instructions .ROUTE 08/26/21 .COMPLEX #90 tab amlodipine 5 mg tablet See Rx Instructions .ROUTE 10/24/21 .COMPLEX #180 tab diclofenac sodium 1 % topical gel 2 g TOPICAL QID #100 g 10/27/21 diclofenac sodium 1 % topical gel 2 g TOPICAL QID #100 g 10/27/21 furosemide 20 mg tablet (Lasix) 10 mg PO QAM #3 tab 10/27/21 furosemide 20 mg tablet (Lasix) 20 mg PO DAILY #3 tab 10/27/21 lidocaine 5 % topical patch 1 patch TOPICAL DAILY #15 ea 10/27/21 Allergies Allergy/AdvReac Type Severity Reaction Status Date / Time No Known Drug Allergies Allergy Unknown Verified 11/03/21 16:02 Review of Systems Review of Systems Narrative: GENERAL: Denies chills, fatigue, malaise, fever, sweats. HEENT: Denies sinus pain, ear pain, sore throat, difficulty swallowing, dizziness. RESPIRATORY: See HPI CARDIOVASCULAR: Denies chest pain, palpitations, orthopnea, edema, GASTROINTESTINAL: Denies nausea, vomiting, abdominal pain, diarrhea, constipation, melena. : Denies dysuria, frequency, incontinence, hematuria, urinary retention. MUSCULOSKELETAL: See HPI SKIN: Denies rash, skin lesions, or other NEUROLOGIC: Denies weakness, headache, numbness, change in speech, confusion, seizures, incoordination. PSYCHIATRIC: No concerning psychosocial issues. 12 point review of systems is negative except for those stated above Patient History Medical History Adenocarcinoma of right lung, stage 1 (~05/10/20) Anemia Benign prostatic hyperplasia (01/29/12) BPH w urinary obs/LUTS Bradycardia Cellulitis Centrilobular emphysema (12/13/16) Cholesteatoma (09/10/12) Chronic kidney disease (CKD) stage G3a/A1, moderately decreased glomerular filtration rate (GFR) between 45-59 mL/min/1.73 square meter and albuminuria creatinine ratio less than 30 mg/g COPD (chronic obstructive pulmonary disease) DNR (do not resuscitate) Hemorrhagic cerebrovascular accident (CVA) (~2006) Hydronephrosis, left Hyperlipidemia Hypertension Lower urinary tract symptoms (LUTS) Lung cancer Macrocytic anemia (07/06/16) Mild alcohol abuse (03/26/15) Olecranon bursitis Peripheral vascular disease of foot (05/31/17) Pneumonia Primary adenocarcinoma of upper lobe of right lung Sinusitis Stenosis of left femoral artery Stroke Substance abuse Syncope Syncope and collapse (09/10/12) Tobacco use disorder, continuous (09/10/12) Transient cerebral ischemia (04/23/12) Traumatic compression fracture of seventh thoracic vertebra, sequela (10/09/16) Tubular adenoma Urinary retention Surgical History History of carpal tunnel repair (03/02/15) History of cataract removal with insertion of prosthetic lens (02/16/15) History of cataract removal with insertion of prosthetic lens (03/09/15) History of tonsillectomy Status post appendectomy Status post colonoscopy (10/06/09) Status post lobectomy of lung (~04/2020) Status post repair of hydrocele (05/22/11) Family History Brother Lung cancer Father Lung cancer Mother Migraines Social History marital status: number of children: 2 household members: spouse Smoking Status: Current every day smoker Tobacco: How many years used: 69 quit status: considering quitting alcohol intake: current caffeine: Yes Smoking Status: Current every day smoker alcohol intake frequency: 3 or more drinks per day Substance Use Type: does not use Exam Narrative Exam Narrative: GENERAL: [85 year old patient appears stated age. Well-developed patient, in mild distress. GCS 15 HEAD: Atraumatic. Normocephalic. No evidence of skull injury, depressed fra cture or other EYES: Pupils equal round and reactive. No hyphema Extraocular motions intact. No scleral icterus. No injection or drainage. ENT: Nose without bleeding, purulent drainage. Throat without erythema, tonsillar hypertrophy or exudate. Airway patent. NECK: Trachea midline. Non tender CARDIOVASCULAR: Regular rate and rhythm without murmurs, gallops, or rubs. RESPIRATORY: Decreased breath sounds throughout prolonged expiratory phase, no obvious difficulty in breathing, no tachypnea or use of accessory muscles GASTROINTESTINAL: Abdomen soft, non-tender, nondistended. EXTREMITIES: Anterior left knee pain without obvious deformity, effusion or discoloration. No pain on squeeze test of tib-fib or ankle. Distal pulses and sensation intact BACK: Minimal midline tenderness the lumbar spine, no crepitance or step-offs. No saddle anesthesia, radiation of pain or measurable lower extremity weakness. NEURO: AOx3. SKIN: No rash or erythema of visible areas Initial Vital Signs Initial Vital Signs: Vital Signs Temperature 97.9 F 11/08/21 06:44 Pulse Rate 83 11/08/21 06:44 Respiratory Rate 18 11/08/21 06:44 Blood Pressure 97/46 L 11/08/21 06:44 Pulse Oximetry 90 L 11/08/21 06:44 Scores CURB-65 Confusion: No BUN >19mg/dL (>7mmol/L): Yes Respiratory rate greater or equal to 30: No SBP <90mmHg or DBP less or equal to 60mmHg: No Age 65 or Older: Yes CURB-65 Total: 2 Score 0-1 Outpatient care, Score 2 Inpt vs. Obs, Score 3 or over Inpt admit with ICU for score of 4-5 Course Course Course Narrative: PSI/PORT Score: Pneumonia Severity Index for CAP from [employer] on 11/08/2021 All calculations should be rechecked by clinician prior to use RESULT SUMMARY: 153 points Risk Class V, 27.0-29.2% mortality. Hospitalization recommended based on risk. INPUTS: Age ?> 85 years Sex ?> 0 = Male alf resident ?> 0 = No Neoplastic disease ?> 30 = Yes Liver disease history ?> 0 = No CHF history ?> 10 = Yes Cerebrovascular disease history ?> 0 = No Renal disease history ?> 10 = Yes Altered mental status ?> 0 = No Respiratory rate >=0 breaths/min ?> 0 = No Systolic blood pressure ?> 0 = No Temperature 39.9?C (103.8?F) ?> 0 = No Pulse >=25 beats/min ?> 0 = No pH ?> 0 = No BUN >=0 mg/dL or >=1 mmol/L ?> 20 = Yes Sodium ?> 0 = No Glucose >=50 mg/dL or >=4 mmol/L ?> 0 = No Hematocrit ?> 0 = No Partial pressure of oxygen ?> 0 = No Pleural effusion on x-ray ?> 0 = No Orders Ordered: ED Orders 11/08/21 06:51 Chest [XR chest 2V] Stat XR hip w pel if done LT 2V Stat XR knee LT 3V Stat XR lumbar spine 2-3V Stat 11/08/21 08:21 EKG-12 Lead Stat 11/08/21 09:20 Complete Blood Count AUTO DIFF Stat Comprehensive Metabolic Panel Stat D Dimer Stat Lactate (Lactic Acid) Stat NT-proBNP (BNP-Adult 18+) Stat Procalcitonin Stat Troponin & CK Cardiac Panel Stat 11/08/21 10:05 CT angio chest PE protocol Stat 11/08/21 10:20 COVID19 -Nasal RAPID/Pre-Proc Stat 11/08/21 10:21 Blood Culture Stat 11/08/21 11:31 Urinalysis and Microscopic Stat 11/08/21 11:38 Sputum Culture Stat Discontinued Medications Ceftriaxone Sodium 2,000 mg/ (Sodium Chloride) 100 mls @ 200 mls/hr IV NOW ONE Stop: 11/08/21 08:26 Last Infusion: 11/08/21 10:56 Dose: 0 mls/hr Documented by: Admin: 11/08/21 10:24 Dose: 200 mls/hr Documented by: HIMANSHU Azithromycin 500 mg/ Dextrose 250 mls @ 250 mls/hr IV NOW ONE Stop: 11/08/21 08:26 Last Admin: 11/08/21 11:08 Dose: 250 mls/hr Documented by: HIMANSHU Vital Signs Vital signs: Vital Signs - 8 hr 11/08/21 06:44 11/08/21 07:02 11/08/21 07:30 Temperature 97.9 F Pulse Rate 83 63 60 Respiratory Rate 18 Blood Pressure 97/46 L Pulse Oximetry 90 L 93 95 11/08/21 08:00 11/08/21 08:30 11/08/21 09:00 Temperature Pulse Rate 61 61 64 Respiratory Rate Blood Pressure Pulse Oximetry 96 95 95 11/08/21 09:30 11/08/21 10:00 11/08/21 10:40 Temperature Pulse Rate 63 62 60 Respiratory Rate Blood Pressure Pulse Oximetry 95 94 90 L 11/08/21 10:44 11/08/21 11:00 11/08/21 11:30 Temperature Pulse Rate 61 65 61 Respiratory Rate Blood Pressure 149/68 H 149/72 H 154/69 H Pulse Oximetry 91 94 94 - Fall Lab Data Result diagrams: 11/08/21 09:20 11/08/21 09:20 Labs: Lab Results 11/08/21 11/08/21 11/08/21 Range/Units 09:20 09:20 09:20 WBC 8.1 (4.5-11.0) X10^3/uL RBC 2.35 L (4.5-5.9) X10^6/uL Hgb 8.3 L (13.5-17.5) g/dL Hct 25.3 L (41-53) % MCV 107.4 H (80-100) fL MCH 35.0 H (26-34) PG MCHC 32.6 (30-36) % RDW 19.6 H (11.6-14.8) % Plt Count 197 (150-400) X10^3/uL Neut % (Auto) 73.2 (50-75) % Lymph % (Auto) 12.7 L (25-40) % Frederick % (Auto) 13.2 (3-14) % Eos % (Auto) 0.4 L (2-4) % Baso % (Auto) 0.5 (0-2) % Neut # (Auto) 5900 (9391-5438) /uL Lymph # (Auto) 1000 L (8366-4530) /uL Frederick # (Auto) 1100 H (0-900) /uL Eos # (Auto) 0 (0-450) /uL Baso # (Auto) 0 (0-100) /uL D-Dimer (<230) ng/mL Sodium 140 (137-145) mmol/L Potassium 5.1 (3.4-5.1) mmol/L Chloride 107 (98-107) mmol/L Carbon Dioxide 30 (22-32) mmol/L BUN 46 H (9-20) mg/dL Creatinine 1.57 H (0.66-1.25) mg/dL Estimated GFR 43 L (>60) mL/min BUN/Creatinine Ratio 29.3 H (6-22) Glucose 96 (80-110) mg/dL Lactate 0.7 (0.7-2.1) mmol/L Calcium 9.4 (8.4-10.2) mg/dL Total Bilirubin 0.3 (0.2-1.3) mg/dL AST 31 (17-59) IU/L ALT 18 (<50) IU/L Alkaline Phosphatase 122 (38-126) U/L Total Creatine Kinase (55-170) U/L CK-MB (CK-2) CK-MB (CK-2) Rel Index Troponin I (0.01-0.034) ng/mL NT-Pro-B Natriuret Pep (<450) pg/mL Total Protein 6.9 (6.3-8.2) g/dL Albumin 3.6 (3.5-5.0) g/dL Globulin 3.3 (1.7-4.1) g/dL Albumin/Globulin Ratio 1.1 (1.0-2.8) Procalcitonin (<0.5) ng/mL Urine Color Urine Appearance Urine pH (4.5-8.0) Ur Specific [place] (1.000-1.035) Urine Protein (Negative) Urine Glucose (UA) (Negative) g/dL Urine Ketones (NEGATIVE) Urine Occult Blood (Negative) Urine Nitrate (Negative) Urine Bilirubin (NEGATIVE) Urine Urobilinogen (0.2) E.U./dL Ur Leukocyte Esterase (NEGATIVE) Urine RBC (0-5/HPF) Urine WBC (0-5/HPF) Ur Squamous Epith Cells (0-5/HPF) Urine Bacteria (None) Ur Culture Indicated? SARS-CoV-2 (PCR) (Negative) 11/08/21 11/08/21 11/08/21 Range/Units 09:20 09:20 09:20 WBC (4.5-11.0) X10^3/uL RBC (4.5-5.9) X10^6/uL Hgb (13.5-17.5) g/dL Hct (41-53) % MCV (80-100) fL MCH (26-34) PG MCHC (30-36) % RDW (11.6-14.8) % Plt Count (150-400) X10^3/uL Neut % (Auto) (50-75) % Lymph % (Auto) (25-40) % Frederick % (Auto) (3-14) % Eos % (Auto) (2-4) % Baso % (Auto) (0-2) % Neut # (Auto) (5151-5691) /uL Lymph # (Auto) (1977-3879) /uL Frederick # (Auto) (0-900) /uL Eos # (Auto) (0-450) /uL Baso # (Auto) (0-100) /uL D-Dimer 3402 H (<230) ng/mL Sodium (137-145) mmol/L Potassium (3.4-5.1) mmol/L Chloride (98-107) mmol/L Carbon Dioxide (22-32) mmol/L BUN (9-20) mg/dL Creatinine (0.66-1.25) mg/dL Estimated GFR (>60) mL/min BUN/Creatinine Ratio (6-22) Glucose (80-110) mg/dL Lactate (0.7-2.1) mmol/L Calcium (8.4-10.2) mg/dL Total Bilirubin (0.2-1.3) mg/dL AST (17-59) IU/L ALT (<50) IU/L Alkaline Phosphatase (38-126) U/L Total Creatine Kinase 58 (55-170) U/L CK-MB (CK-2) TNP CK-MB (CK-2) Rel Index TNP Troponin I < 0.012 (0.01-0.034) ng/mL NT-Pro-B Natriuret Pep 933 H (<450) pg/mL Total Protein (6.3-8.2) g/dL Albumin (3.5-5.0) g/dL Globulin (1.7-4.1) g/dL Albumin/Globulin Ratio (1.0-2.8) Procalcitonin 0.15 (<0.5) ng/mL Urine Color Urine Appearance Urine pH (4.5-8.0) Ur Specific [place] (1.000-1.035) Urine Protein (Negative) Urine Glucose (UA) (Negative) g/dL Urine Ketones (NEGATIVE) Urine Occult Blood (Negative) Urine Nitrate (Negative) Urine Bilirubin (NEGATIVE) Urine Urobilinogen (0.2) E.U./dL Ur Leukocyte Esterase (NEGATIVE) Urine RBC (0-5/HPF) Urine WBC (0-5/HPF) Ur Squamous Epith Cells (0-5/HPF) Urine Bacteria (None) Ur Culture Indicated? SARS-CoV-2 (PCR) (Negative) 11/08/21 11/08/21 Range/Units 10:20 11:31 WBC (4.5-11.0) X10^3/uL RBC (4.5-5.9) X10^6/uL Hgb (13.5-17.5) g/dL Hct (41-53) % MCV (80-100) fL MCH (26-34) PG MCHC (30-36) % RDW (11.6-14.8) % Plt Count (150-400) X10^3/uL Neut % (Auto) (50-75) % Lymph % (Auto) (25-40) % Frederick % (Auto) (3-14) % Eos % (Auto) (2-4) % Baso % (Auto) (0-2) % Neut # (Auto) (8640-1752) /uL Lymph # (Auto) (5804-0455) /uL Frederick # (Auto) (0-900) /uL Eos # (Auto) (0-450) /uL Baso # (Auto) (0-100) /uL D-Dimer (<230) ng/mL Sodium (137-145) mmol/L Potassium (3.4-5.1) mmol/L Chloride (98-107) mmol/L Carbon Dioxide (22-32) mmol/L BUN (9-20) mg/dL Creatinine (0.66-1.25) mg/dL Estimated GFR (>60) mL/min BUN/Creatinine Ratio (6-22) Glucose (80-110) mg/dL Lactate (0.7-2.1) mmol/L Calcium (8.4-10.2) mg/dL Total Bilirubin (0.2-1.3) mg/dL AST (17-59) IU/L ALT (<50) IU/L Alkaline Phosphatase (38-126) U/L Total Creatine Kinase (55-170) U/L CK-MB (CK-2) CK-MB (CK-2) Rel Index Troponin I (0.01-0.034) ng/mL NT-Pro-B Natriuret Pep (<450) pg/mL Total Protein (6.3-8.2) g/dL Albumin (3.5-5.0) g/dL Globulin (1.7-4.1) g/dL Albumin/Globulin Ratio (1.0-2.8) Procalcitonin (<0.5) ng/mL Urine Color Yellow Urine Appearance Clear Urine pH 6.5 (4.5-8.0) Ur Specific [place] 1.010 (1.000-1.035) Urine Protein 1+ H (Negative) Urine Glucose (UA) Negative (Negative) g/dL Urine Ketones Negative (NEGATIVE) Urine Occult Blood Negative (Negative) Urine Nitrate Negative (Negative) Urine Bilirubin Negative (NEGATIVE) Urine Urobilinogen 0.2 (0.2) E.U./dL Ur Leukocyte Esterase Negative (NEGATIVE) Urine RBC None seen (0-5/HPF) Urine WBC None seen (0-5/HPF) Ur Squamous Epith Cells 0-1 /hpf (0-5/HPF) Urine Bacteria None seen (None) Ur Culture Indicated? Cult not indicated SARS-CoV-2 (PCR) Negative (Negative) Imaging Data Chest x-ray: Radiologist's Impression: [place] [address] XRay Report Signed Patient: Pola Chambers MR#: [id number] : 1935 Acct:[id number] Age/Sex: 85 / M Date of Service: 11/08/21 Loc: ED Accession Number: [id number] ?? Procedure: XR chest 2V Ordering Provider: Michael Chairez D.O. PROCEDURE:? XR CHEST 2V ? INDICATIONS:? SOB, hemoptysis ? TECHNIQUE:? 2 views of the chest were acquired.? ? COMPARISON:? [facility], CT, CT CHEST ABD PEL WO CON, 09/24/2021, 11:26.? [facility], CR, XR CHEST 1V, 09/24/2021, 10:38.? [facility], CR, XR CHEST 2V, 10/27/2021, 15:54. ? FINDINGS:? ? Surgical changes and devices:? There is a cardiac pacemaker.? ? Lungs and pleura:? Airspace opacity in the right upper lobe and right lower lobe consistent with pneumonia.? Bilateral diffuse interstitial prominence.? Small pleural effusions bilaterally.? No pneumothorax.? ? Mediastinum:? Mediastinal contours are normal.? Heart size is normal.? ? Bones and chest wall:? No suspicious bony abnormalities.? Soft tissues appear unremarkable.? ? IMPRESSION:? ? 1. Opacities in the right upper lobe and right lower lobe suspicious for multifocal pneumonia.? ? 2. Bilateral interstitial prominence and small pleural effusions.? Superimposed CHF may be present. ? ? Dictated by: Teresa Yin M.D. on 11/08/2021 at 8:12 ? ? Approved by: Teresa Yin M.D. on 11/08/2021 at 8:13? Hip Xray: Radiologist's Impression: Pola Chambers?(Rosalino)??85??M??1935 ? Allergy/Adv: No Known Drug Allergies (More??) Close Lumbar Spine X-Ray 11/08/21 Knee X-Ray (Signed) Toni Yin - 11/08/21 Hip X-Ray (Signed) Toni Yin - 11/08/21 Chest X-Ray (Signed) Toni Yin - 11/08/21 Chest X-Ray (Signed) Abdirahman Alvarenga - 10/27/21 Telemetry Strips 09/24/21 Chest/Abdomen/Pelvis CT (Signed) Call,Rafael - 09/24/21 Chest X-Ray (Signed) Call,Rafael - 09/24/[address] (Signed) Ricardo Meyer - 09/24/21 Hip X-Ray (Signed) Mika Golver - 09/19/[address] (Signed) Clive Hinds - 09/19/21 Bone Scan Nuclear Medicine (Signed) Toni Yin - 09/15/21 Chest X-Ray (Signed) Mika Glover - 09/07/[address] (Signed) Jaec Abraham - 08/25/[address] (Signed) Adelso Vallejo - 02/28/21 Radiology Report (Cancelled) Jeet Shields - 01/20/21 Echocardiogram Ultrasound (Signed) Milton Viramontes - 01/20/21 Carotid Doppler Study (Signed) Adelso Vallejo - 01/20/21 Telemetry Strips 11/03/20 Chest X-Ray (Signed) Abdulaziz Morales - 11/03/[address] (Signed) Adelso Vallejo - 11/03/20 Lumbar Spine X-Ray (Signed) Shyla Beaulieu - 10/21/20 Chest X-Ray (Signed) Kenroy Marvin - 10/21/20 Telemetry Strips 10/08/20 Chest CTA (Signed) Simi Cassidy - 10/08/20 Chest X-Ray (Addendum) Johnson Little - 10/08/20 Chest X-Ray (Signed) Simi Cassidy - 09/27/[address] (Signed) Abdulaziz Morales - 09/08/20 Renal Scan Nuclear Medicine (Signed) Zhen Keene - 09/08/20 Abdomen/Pelvis CT (Signed) Abdulaziz Morales - 08/31/20 Renal Ultrasound (Signed) Abdirahman Alvarenga - 08/18/20 PET, Tumor Imaging Skull-Mid Thigh (Signed) Toni Yin - 03/10/[address] (Signed) Simi Cassidy - 01/27/20 DI Result 09/25/19 Abdomen X-Ray (Signed) Simi Cassidy - 09/12/19 Chest X-Ray (Signed) Adelso Vallejo - 09/12/[address] (Signed) Michelle Galindo - 09/10/19 Echocardiogram Ultrasound (Signed) Thom Jeff - 09/10/19 Telemetry Strips 09/10/19 Chest X-Ray (Signed) Patrick Romano - 09/08/19 Head/Mastoid CT (Signed) Abdirahman Alvarenga - 02/17/19 Radiology Report (Cancelled) Sonya Ennis - 10/16/18 Myocardial Perfusion Scan Nuc Med (Signed) Sonya Ennis - 10/15/[address] [address] XRay Report Signed Patient: Pola Chambers MR#: [id number] : 1935 Acct:[id number] Age/Sex: 85 / M Date of Service: 11/08/21 Loc: ED Accession Number: [id number] ?? Procedure: XR hip w pel if done LT 2V Ordering Provider: Michael Chairez D.O. PROCEDURE:? XR HIP W PEL IF DONE LT 2V ? INDICATIONS:? fall with hip/knee pain ? TECHNIQUE:? AP pelvis with lateral view(s) of the left hip(s).? ? COMPARISON:? [facility], CR, XR HIP W PEL IF DONE RT 2V, 09/19/2021, 15:44. ? FINDINGS:? ? Bones:? No fractures or dislocations.? Pelvic ring appears intact.? No suspicious bony lesions.? ? Soft tissues:? The visualized bowel gas pattern is normal.? Vascular calcifications consistent with atherosclerosis.? ? ? IMPRESSION:? ? 1. No acute osseous abnormalities.? If clinical symptoms persist or clinical suspicion for pathology is high, a repeat examination in 7-10 days, or advanced imaging such as CT or MRI is suggested for further evaluation.? Dictated by: Teresa Yin M.D. on 11/08/2021 at 8:14 ? ? Approved by: Teresa Yin M.D. on 11/08/2021 at 8:15 ? Extremity x-ray #1: Radiologist's Impression: Pola Chambers?(Rosalino)??85??M??1935 ? Allergy/Adv: No Known Drug Allergies (More??) Close Lumbar Spine X-Ray 11/08/21 Knee X-Ray (Signed) Toni Yin - 11/08/21 Hip X-Ray (Signed) Toni Yin - 11/08/21 Chest X-Ray (Signed) Toni Yin - 11/08/21 Chest X-Ray (Signed) Abdirahman Alvarenga - 10/27/21 Telemetry Strips 09/24/21 Chest/Abdomen/Pelvis CT (Signed) Rafael Dooley - 09/24/21 Chest X-Ray (Signed) Call,Rafael - 09/24/[address] (Signed) Ricardo Meyer - 09/24/21 Hip X-Ray (Signed) Mika Glover - 09/19/[address] (Signed) Clive Hinds - 09/19/21 Bone Scan Nuclear Medicine (Signed) Toni Yin - 09/15/21 Chest X-Ray (Signed) Glover,Mika - 09/07/[address] (Signed) Jace Abraham - 08/25/[address] (Signed) Adelso Vallejo - 02/28/21 Radiology Report (Cancelled) CorneliusJeet - 01/20/21 Echocardiogram Ultrasound (Signed) Milton Viramontes - 01/20/21 Carotid Doppler Study (Signed) Adelso Vallejo - 01/20/21 Telemetry Strips 11/03/20 Chest X-Ray (Signed) Abdulaziz Morales - 11/03/[address] (Signed) Adelso Vallejo - 11/03/20 Lumbar Spine X-Ray (Signed) Shyla Beaulieu - 10/21/20 Chest X-Ray (Signed) Kenroy Marvin - 10/21/20 Telemetry Strips 10/08/20 Chest CTA (Signed) Simi Cassidy - 10/08/20 Chest X-Ray (Addendum) Johnson Little - 10/08/20 Chest X-Ray (Signed) Simi Cassidy - 09/27/[address] (Signed) Abdulaziz Morales - 09/08/20 Renal Scan Nuclear Medicine (Signed) Zhen Keene - 09/08/20 Abdomen/Pelvis CT (Signed) Abdulaziz Morales - 08/31/20 Renal Ultrasound (Signed) Abdirahman Alvarenga - 08/18/20 PET, Tumor Imaging Skull-Mid Thigh (Signed) Toni Yin - 03/10/[address] (Signed) Simi Cassidy - 01/27/20 DI Result 09/25/19 Abdomen X-Ray (Signed) Simi Cassidy - 09/12/19 Chest X-Ray (Signed) Adelso Vallejo - 09/12/[address] (Signed) Michelle Galindo - 09/10/19 Echocardiogram Ultrasound (Signed) Thom Jeff - 09/10/19 Telemetry Strips 09/10/19 Chest X-Ray (Signed) Patrick Romano - 09/08/19 Head/Mastoid CT (Signed) Abdirahman Alvarenga - 02/17/19 Radiology Report (Cancelled) Sonya Ennis - 10/16/18 Myocardial Perfusion Scan Nuc Med (Signed) Sonya Ennis - 10/15/18 [facility] [address] [address] XRay Report Signed Patient: Pola Chambers MR#: [id number] : 1935 Acct:[id number] Age/Sex: 85 / M Date of Service: 11/08/21 Loc: ED Accession Number: [id number] ?? Procedure: XR hip w pel if done LT 2V Ordering Provider: Michael Chairez D.O. PROCEDURE:? XR HIP W PEL IF DONE LT 2V ? INDICATIONS:? fall with hip/knee pain ? TECHNIQUE:? AP pelvis with lateral view(s) of the left hip(s).? ? [facility]21, 15:44. ? FINDINGS:? ? Bones:? No fractures or dislocations.? Pelvic ring appears intact.? No suspicious bony lesions.? ? Soft tissues:? The visualized bowel gas pattern is normal.? Vascular calcifications consistent with atherosclerosis.? ? ? IMPRESSION:? ? 1. No acute osseous abnormalities.? If clinical symptoms persist or clinical suspicion for pathology is high, a repeat examination in 7-10 days, or advanced imaging such as CT or MRI is suggested for further evaluation.? Dictated by: Teresa Yin M.D. on 11/08/2021 at 8:14 ? ? Approved by: Teresa Yin M.D. on 11/08/2021 at 8:15 ? CT scan - chest: Radiologist's Impression: [address] [address] XRay Report Signed Patient: Sirena Brand MR#: [id number] : 04/13/1949 Acct:[id number] Age/Sex: 72 / F Date of Service: 11/08/21 Loc: ED Accession Number: [id number] ?? Procedure: XR chest 2V Ordering Provider: Michael Chairez D.O. PROCEDURE:? XR CHEST 2V ? INDICATIONS:? cough ? TECHNIQUE:? 2 views of the chest were acquired.? ? COMPARISON:? [facility], [facility], XR CHEST 2V, 12/10/2018, 23:26.? [facility], CR, XR CHEST 1V, 02/19/2018, 22:29.? [facility], CR, XR CHEST 2V, 10/04/2021, 9:45. ? FINDINGS:? ? Surgical changes and devices:? Patient is status post median sternotomy and valvular replacement. ? Lungs and pleura:? Lungs are clear.? No pleural effusions or pneumothorax.? ? Mediastinum:? Mediastinal contours are normal.? Heart size is normal.? ? Bones and chest wall:? No suspicious bony abnormalities.? Soft tissues appear unremarkable.? ? IMPRESSION:? No acute cardiopulmonary findings. ? ? Dictated by: Michelle Galindo M.D. on 11/08/2021 at 10:51 ? ? Approved by: Michelle Galinod M.D. on 11/08/2021 at 10:52 ? L Spine: Radiologist's Impression: [place] [address] XRay Report Signed Patient: Pola Chambers MR#: [id number] : 1935 Acct:[id number] Age/Sex: 85 / M Date of Service: 11/08/21 Loc: ED Accession Number: [id number] ?? Procedure: XR lumbar spine 2-3V Ordering Provider: Michael Chairez D.O. PROCEDURE:? XR LUMBAR SPINE 2-3V ? INDICATIONS:? fall with lumbar pain ? TECHNIQUE:? 3 views of the lumbar spine were acquired.? ? COMPARISON:? [facility], CT, CT CHEST ABD PEL WO CON, 09/24/2021, 11:26.? [facility], CR, XR LUMBAR SPINE 2-3V, 10/21/2020, 18:12. ? FINDINGS:? ? Bones:? 5 [id number] vertebrae are present.? There is normal bony alignment.? There is mild compression fracture of T11, new since 09/24/2021.? Mild chronic compression deformity of T12 and L2.? No suspicious bony lesions.? 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 ? Soft tissues:? Overlying bowel gas pattern is normal.? Severe atherosclerotic calcifications.? ? ? IMPRESSION:? ? 1. Mild acute compression fracture of T11. 2. Mild chronic compression fracture of T12 and L2. 3. 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 ? ? Dictated by: Teresa Yin M.D. on 11/08/2021 at 8:17 ? ? Approved by: Teresa Yin M.D. on 11/08/2021 at 8:21 Discharge Plan Departure Patient Disposition: Admitted as Observation Clinical Impression: Pneumonia, Weakness, Fracture of lumbar spine, Contusion of knee Admit Date/Time: 11/08/21 12:04 Admit Provider: Cesar Herr
[2021-11-08 09:39] LABS: Add Manual Diff / Slide Review NO; Basophils Absolute Auto 0 /uL (0-100); Basophils Percent Auto 0.5 % (0-2); Eosinophils Absolute Auto 0 /uL (0-450); Eosinophils Percent Auto 0.4 % (2-4); Hematocrit 25.3 % (41-53); Hemoglobin 8.3 g/dL (13.5-17.5); Lymphocytes Absolute Auto 1000 /uL (1100-4500); Lymphocytes Percent Auto 12.7 % (25-40); Mean Corpuscular HGB Conc 32.6 % (30-36); Mean Corpuscular Volume 107.4 fL (80-100); Monocytes Absolute Auto 1100 /uL (0-900); Monocytes Percent Auto 13.2 % (3-14); Neutrophils Absolute Auto 5900 /uL (1500-7000); Neutrophils Percent Auto 73.2 % (50-75); Platelet Count 197 X10^3/uL (150-400); Red Blood Cell Count 2.35 X10^6/uL (4.5-5.9); Red Cell Distribution Width 19.6 % (11.6-14.8); White Blood Cell Count 8.1 X10^3/uL (4.5-11.0)
[2021-11-08 09:51] LABS: Creatine Kinase 58 U/L (55-170)
[2021-11-08 09:55] LABS: D Dimer 3402 ng/mL (<230)
[2021-11-08 10:01] LABS: NT-proBNP (BNP-Adult 18+) 933 pg/mL (<450)
[2021-11-08 10:04] LABS: Troponin I < 0.012 ng/mL (0.01-0.034)
--- NOTE | 2021-11-08 10:05 | DI.CT.S_ITS ---
PROCEDURE: CT ANGIO CHEST PE PROTOCOL INDICATIONS: cough, hemoptysis, weakness, critical D Dimer TECHNIQUE: After the administration of intravenous contrast, 2 mm thick sections acquired from the pulmonary apices to the posterior costophrenic angles. 3-dimensional maximum intensity projection (MIP) coronal and sagittal reformats were then acquired through the thorax. For radiation dose reduction, the following was used: automated exposure control, adjustment of mA and/or kV according to patient size. COMPARISON: [facility], CT, CT ANGIO CHEST PE PROTOCOL, 10/08/2020, 19:04. FINDINGS: Image quality: Excellent. Pulmonary arteries: Pulmonary arteries are normal in size, and demonstrate no intraluminal filling defects to suggest central pulmonary embolism. Lungs and pleura: There is severe centrilobular emphysema and apical scarring. Superimposed airspace opacities are present within the right upper lobe, anterior aspect of the right lower lobe, and the midportion of the left lower lobe. There is a small low-density loculated appearing left pleural effusion some of which tracks through the oblique fissure. Mediastinum: Heart size is enlarged, as before, without pericardial effusion. There are multiple shotty mediastinal nodes, the largest of which measure 1.1 cm in short axis diameter. Thoracic aorta is normal in caliber and enhancement. Esophagus is normal in caliber, without hiatal hernia. Bones and chest wall: No suspicious bony lesions. Ribs and thoracic spine appear intact throughout. Thyroid gland is unremarkable. No axillary or supraclavicular adenopathy. Abdomen: Visualized upper abdominal solid organs appear normal in the early arterial phase of enhancement. IMPRESSION: 1. No acute pulmonary embolus. 2. Severe centrilobular emphysema and pulmonary scarring as before. 3. Superimposed multifocal airspace opacities suspicious for multifocal pneumonia or aspiration. 4. Small low-density loculated appearing left pleural effusion. Dictated by: Michelle Galindo M.D. on 11/08/2021 at 10:54 Approved by: Michelle Galindo M.D. on 11/08/2021 at 11:03
[2021-11-08 10:08] LABS: Procalcitonin 0.15 ng/mL (<0.5)
[2021-11-08 10:16] LABS: Alanine Aminotransferase 18 IU/L (<50); Albumin 3.6 g/dL (3.5-5.0); Albumin Globulin Ratio 1.1 (1.0-2.8); Alkaline Phosphatase 122 U/L (38-126); Aspartate Aminotransferase 31 IU/L (17-59); BUN Creatinine Ratio 29.3 (6-22); Bilirubin Total 0.3 mg/dL (0.2-1.3); Blood Urea Nitrogen 46 mg/dL (9-20); Calcium 9.4 mg/dL (8.4-10.2); Carbon Dioxide 30 mmol/L (22-32); Chloride 107 mmol/L (98-107); Estimated Glomerular Filt Rate 43 mL/min (>60); Globulin 3.3 g/dL (1.7-4.1); Glucose 96 mg/dL (80-110); HEMOLYSIS < 15 (0-50); Potassium 5.1 mmol/L (3.4-5.1); Sodium 140 mmol/L (137-145); Total Protein 6.9 g/dL (6.3-8.2)
[2021-11-08] MEDS: cefTRIAXone 2,000 MG in SODIUM CHLORIDE 0.9% 100 ML 200 ML IV (10:24)
[2021-11-08 10:27] LABS: Lactate (Lactic Acid) 0.7 mmol/L (0.7-2.1)
[2021-11-08 10:53] LABS: COVID19 -Nasal RAPID Negative (Negative)
[2021-11-08] MEDS: AZITHROMYCIN 500 MG in DEXTROSE 5% IN WATER 250 ML IV (11:08)
[2021-11-08 11:42] LABS: Appearance Urine UA CLEAR; Bilirubin Urine UA NEGATIVE (NEGATIVE); Color Urine UA YELLOW; Glucose Urine UA NEGATIVE (Negative); Ketones Urine UA NEGATIVE (NEGATIVE); Leukocyte Esterase Urine UA NEGATIVE (NEGATIVE); Nitrite Urine UA NEGATIVE (Negative); Occult Blood Urine UA NEGATIVE (Negative); Protein Urine UA 1+ (Negative); Urobilinogen Urine UA 0.2 E.U./dL (0.2); pH Urine UA 6.5 (4.5-8.0)
[2021-11-08 11:59] LABS: Bacteria Urine None Seen; Culture Indicated Urine Cult Not Indicated; RBC Urine None Seen (0-5/HPF); Squamous Epithelial Cell Urine 0-1 /HPF (0-5/HPF); WBC Urine None Seen (0-5/HPF)
[2021-11-08] MEDS: ACETAMINOPHEN 325 MG TABLET 975 MG PO (13:07)
--- NOTE | 2021-11-08 15:53 | P.HP_ITS ---
History of Present Illness History of Present Illness Chief complaint: Fell and having knee/back pain. spitting blood Narrative: Mr. 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 Patient states for the pa st couple of days he has had increasing cough with bloody sputum. He denies any fevers or chills, worsening shortness of breath from his baseline, sick contacts, abdominal pain, nausea, vomiting, dysuria, or urinary frequency. He did feel a bit weaker starting today which he thinks resulted in his fall as he was going down some stairs. He did not hit his head or lose consciousness. Hit his left side and has predominantly left-sided knee pain and left-sided hip pain. In the emergency room, the patient's vital signs were fairly unremarkable. Imaging did show a left-sided knee effusion, but no acute fractures in his extremities. There potentially is a new acute compression fracture in his spine. D-dimer was elevated and so patient underwent a CT angiogram of his chest which did not reveal any evidence of PE but did show bilateral pleural effusions in a multifocal pneumonia. Patient was admitted for pneumonia as well as difficulty with ambulation after his fall. Patient History Medical History Adenocarcinoma of right lung, stage 1 (~05/10/20) Anemia Benign prostatic hyperplasia (01/29/12) BPH w urinary obs/LUTS Bradycardia Cellulitis Centrilobular emphysema (12/13/16) Cholesteatoma (09/10/12) Chronic kidney disease (CKD) stage G3a/A1, moderately decreased glomerular filtration rate (GFR) between 45-59 mL/min/1.73 square meter and albuminuria cr eatinine ratio less than 30 mg/g COPD (chronic obstructive pulmonary disease) DNR (do not resuscitate) Hemorrhagic cerebrovascular accident (CVA) (~2006) Hydronephrosis, left Hyperlipidemia Hypertension Lower urinary tract symptoms (LUTS) Lung cancer Macrocytic anemia (07/06/16) Mild alcohol abuse (03/26/15) Olecranon bursitis Peripheral vascular disease of foot (05/31/17) Pneumonia Primary adenocarcinoma of upper lobe of right lung Sinusitis Stenosis of left femoral artery Stroke Substance abuse Syncope Syncope and collapse (09/10/12) Tobacco use disorder, continuous (09/10/12) Transient cerebral ischemia (04/23/12) Traumatic compression fracture of seventh thoracic vertebra, sequela (10/09/16) Tubular adenoma Urinary retention Surgical History History of carpal tunnel repair (03/02/15) History of cataract removal with insertion of prosthetic lens (02/16/15) History of cataract removal with insertion of prosthetic lens (03/09/15) History of tonsillectomy Status post appendectomy Status post colonoscopy (10/06/09) Status post lobectomy of lung (~04/2020) Status post repair of hydrocele (05/22/11) Family & Social History Family History Brother Lung cancer Father Lung cancer Mother Migraines Social History: household members spouse Safety & Behavioral: Feels Safe in Current Yes Environment Suicidal Ideation Description None Suicide Plan Description No Plan Tobacco & Substance use: Tobacco type cigarettes Smoking Status Current every day smoker alcohol intake current alcohol intake frequency 3 or more drinks per day Substance Use Type does not use Meds Home Medications and Allergies Home Medications Medication Instructions Recorded Confirmed Type multivitamin (Tab-A-Iqra) 1 tab PO DAILY #30 tab 09/14/19 10/06/21 Rx thiamine HCl (vitamin B1) 100 mg 100 mg PO DAILY #30 tab 09/14/19 10/06/21 Rx tablet (Vitamin B-1) fluticasone furoate 200 1 inh INHALATION DAILY 11/03/20 10/06/21 History mcg-vilanterol 25 mcg/dose inhalation powder (Breo Ellipta) lidocaine 4 % topical patch 1 patch TOPICAL DAILY PRN 11/03/20 10/06/21 History (Blue-Emu Lidocaine Patch) magnesium 250 mg tablet 250 mg PO DAILY 12/02/20 10/06/21 History fluticasone furoate 200 1 inh INHALATION DAILY #60 each 03/16/21 10/06/21 Rx mcg-vilanterol 25 mcg/dose inhalation powder albuterol sulfate 90 mcg/actuation See Rx Instructions .ROUTE 03/25/21 10/06/21 Rx aerosol inhaler (Ventolin HFA) .COMPLEX #18 gram umeclidinium 62.5 mcg/actuation See Rx Instructions .ROUTE 04/14/21 10/06/21 Rx blister powder for inhalation .COMPLEX #30 ea (Incruse Ellipta) aspirin 81 mg chewable tablet 81 mg PO DAILY tab 06/17/21 10/06/21 History omeprazole 20 mg capsule,delayed 20 mg PO DAILY cap 06/17/21 10/06/21 History release rosuvastatin 5 mg tablet See Rx Instructions .ROUTE 08/26/21 10/06/21 Rx .COMPLEX #90 tab amlodipine 5 mg tablet See Rx Instructions .ROUTE 10/24/21 Rx .COMPLEX #180 tab diclofenac sodium 1 % topical gel 2 g TOPICAL QID #100 g 10/27/21 Rx diclofenac sodium 1 % topical gel 2 g TOPICAL QID #100 g 10/27/21 Rx furosemide 20 mg tablet (Lasix) 10 mg PO QAM #3 tab 10/27/21 Rx furosemide 20 mg tablet (Lasix) 20 mg PO DAILY #3 tab 10/27/21 Rx lidocaine 5 % topical patch 1 patch TOPICAL DAILY #15 ea 10/27/21 Rx Allergies Allergy/AdvReac Type Severity Reaction Status Date / Time No Known Drug Allergies Allergy Unknown Verified 11/03/21 16:02 Review of Systems Review of Systems Narrative: All other systems reviewed with the patient and are negative unless otherwise stated. Exam Vital Signs (past 8 hours): - 11/08/21 08:00 11/08/21 08:30 11/08/21 09:00 Temperature Pulse Rate 61 61 64 Respiratory Rate Blood Pressure Pulse Oximetry 96 95 95 11/08/21 09:30 11/08/21 10:00 11/08/21 10:40 Temperature Pulse Rate 63 62 60 Respiratory Rate Blood Pressure Pulse Oximetry 95 94 90 L 11/08/21 10:44 11/08/21 11:00 11/08/21 11:30 Temperature Pulse Rate 61 65 61 Respiratory Rate Blood Pressure 149/68 H 149/72 H 154/69 H Pulse Oximetry 91 94 94 11/08/21 12:00 11/08/21 12:29 11/08/21 12:30 Temperature Pulse Rate 60 60 Respiratory Rate 15 Blood Pressure 146/69 H 135/69 Pulse Oximetry 94 93 11/08/21 14:00 11/08/21 15:00 Temperature 96.3 F L Pulse Rate 64 Respiratory Rate 19 Blood Pressure 138/79 Pulse Oximetry 100 99 Oxygen Delivery Method Room Air Oxygen Flow Rate 0 Narrative Exam Narrative: General:? Patient is well developed and well nourished, in no distress at this time. HEENT:? Normocephalic, atraumatic, extraocular muscles intact, oral pharynx is clear and mucous membranes are moist. Neck: supple and symmetric, trachea is midline, no cervical adenopathy. Negative for JVD Chest:? Normal AP diameter and contour without kyphoscoliosis, no tachypnea, equal chest rise bilaterally. Lungs:? Diminished breath sounds at the bilateral lung bases but no obvious wheezing, rhonchi, or rales Cardio:?RRR with a 3/6 systolic crescendo decrescendo murmur Abdomen: S NT ND. Musculoskeletal:? Muscle strength and tone are equal within normal limits, no deformity. Extremities: No edema. Left knee effusion with mild tenderness, no erythema or warmth. Left hip non-tender. Skin:? Pale,? Warm to touch,dry and intact without rashes, ulcerations or petechiae.? Neuro:? Alert and orientated x3,? sensation to touch intact in all extremities, no gross deficits noted of cranial nerves. Psych:? Patient has a well-kept appearance, appropriate affect, mental status attitude thought context and judgment are appropriate for age. Objective ECG Impression: Atrial-paced rhythm with prolonged AV conduction as interpreted by me Labs Result Diagrams: 11/08/21 09:20 11/08/21 09:20 Labs: Laboratory Results - last 24 hr 11/08/21 11/08/21 11/08/21 09:20 09:20 09:20 WBC 8.1 RBC 2.35 L Hgb 8.3 L Hct 25.3 L MCV 107.4 H MCH 35.0 H MCHC 32.6 RDW 19.6 H Plt Count 197 Neut % (Auto) 73.2 Lymph % (Auto) 12.7 L [place] % (Auto) 13.2 Eos % (Auto) 0.4 L Baso % (Auto) 0.5 Neut # (Auto) 5900 Lymph # (Auto) 1000 L [place] # (Auto) 1100 H Eos # (Auto) 0 Baso # (Auto) 0 D-Dimer Sodium 140 Potassium 5.1 Chloride 107 Carbon Dioxide 30 BUN 46 H Creatinine 1.57 H Estimated GFR 43 L BUN/Creatinine Ratio 29.3 H Glucose 96 Lactate 0.7 Calcium 9.4 Total Bilirubin 0.3 AST 31 ALT 18 Alkaline Phosphatase 122 Total Creatine Kinase CK-MB (CK-2) CK-MB (CK-2) Rel Index Troponin I NT-Pro-B Natriuret Pep Total Protein 6.9 Albumin 3.6 Globulin 3.3 Albumin/Globulin Ratio 1.1 Procalcitonin Urine Color Urine Appearance Urine pH Ur Specific Andrews Urine Protein Urine Glucose (UA) Urine Ketones Urine Occult Blood Urine Nitrate Urine Bilirubin Urine Urobilinogen Ur Leukocyte Esterase Urine RBC Urine WBC Ur Squamous Epith Cells Urine Bacteria Ur Culture Indicated? SARS-CoV-2 (PCR) 11/08/21 11/08/21 11/08/21 09:20 09:20 09:20 WBC RBC Hgb Hct MCV MCH MCHC RDW Plt Count Neut % (Auto) Lymph % (Auto) [place] % (Auto) Eos % (Auto) Baso % (Auto) Neut # (Auto) Lymph # (Auto) [place] # (Auto) Eos # (Auto) Baso # (Auto) D-Dimer 3402 H Sodium Potassium Chloride Carbon Dioxide BUN Creatinine Estimated GFR BUN/Creatinine Ratio Glucose Lactate Calcium Total Bilirubin AST ALT Alkaline Phosphatase Total Creatine Kinase 58 CK-MB (CK-2) TNP CK-MB (CK-2) Rel Index TNP Troponin I < 0.012 NT-Pro-B Natriuret Pep 933 H Total Protein Albumin Globulin Albumin/Globulin Ratio Procalcitonin 0.15 Urine Color Urine Appearance Urine pH Ur Specific Andrews Urine Protein Urine Glucose (UA) Urine Ketones Urine Occult Blood Urine Nitrate Urine Bilirubin Urine Urobilinogen Ur Leukocyte Esterase Urine RBC Urine WBC Ur Squamous Epith Cells Urine Bacteria Ur Culture Indicated? SARS-CoV-2 (PCR) 11/08/21 11/08/21 10:20 11:31 WBC RBC Hgb Hct MCV MCH MCHC RDW Plt Count Neut % (Auto) Lymph % (Auto) [place] % (Auto) Eos % (Auto) Baso % (Auto) Neut # (Auto) Lymph # (Auto) [place] # (Auto) Eos # (Auto) Baso # (Auto) D-Dimer Sodium Potassium Chloride Carbon Dioxide BUN Creatinine Estimated GFR BUN/Creatinine Ratio Glucose Lactate Calcium Total Bilirubin AST ALT Alkaline Phosphatase Total Creatine Kinase CK-MB (CK-2) CK-MB (CK-2) Rel Index Troponin I NT-Pro-B Natriuret Pep Total Protein Albumin Globulin Albumin/Globulin Ratio Procalcitonin Urine Color Yellow Urine Appearance Clear Urine pH 6.5 Ur Specific Andrews 1.010 Urine Protein 1+ H Urine Glucose (UA) Negative Urine Ketones Negative Urine Occult Blood Negative Urine Nitrate Negative Urine Bilirubin Negative Urine Urobilinogen 0.2 Ur Leukocyte Esterase Negative Urine RBC None seen Urine WBC None seen Ur Squamous Epith Cells 0-1 /hpf Urine Bacteria None seen Ur Culture Indicated? Cult not indicated SARS-CoV-2 (PCR) Negative Assessment & Plan Assessment & Plan narrative: Mr. 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 1. Community acquired pneumonia, multilobar bacterial pneumonia, hemoptysis - continue ceftriaxone and azithromycin - suspect pneumonia rather than cancer leading to hemoptysis given CT without obvious mass 2. left knee effusion, traumatic, after ground level fall - continue pain control - PT/OT, no surgical management at this time. - UA negative. weakness likely secondary to pneumonia. - no obvious bony injuries other than acute lumbar compression fracture noted on CT imaging. 3. acute lumbar compression fracture - pain control, PT/OT. 4. chronic hypoxemic respiratory failure, COPD without exacerbation - Goal O2 >89% while on room air. Supplement as needed. - continue home medications / inhalers with formulary replacements. - RT eval and treat. 5. s/p PPM placement, CAD - continue home medications. No current chest pain. Has known coronary stenosis and needs PCI but cardiology note states waiting until Hg is >10. 6. CKD stage III 7. HTN - continue home medications 8. Chronic anemia - appears stable from prior lab studies. I have utilized all available immediate resources to obtain, update, or review the patient's current medications. Code: DNR, surrogate decision maker is his spouse DVT: Lovenox Dispo: admit under observation status, PT/OT evaluations but likely to return home. Time Spent With Patient Critical Care time: I spent a total of [] minutes of critical care time on this patient's care t marleen; this time is exclusive of procedural time. Quality MIPS - Admit I confirm the patient?s Advance Care Plan is present, Code status is documented, Surrogate decision maker is in patient?s record [If Yes, STOP here]: Yes
--- NOTE | 2021-11-08 17:27 | PC.NURSE ---
Pt arrived from ED at 1400, A&Ox4, c/o 9/10 L knee pain. VSS on RA, IV to L forearm SL. CMS intact bilat UE, numbness and tingling to bilat LE at baseline. Lung sounds diminished bilaterally. Pt and at bedside oriented to room and call light. to take pt clothes and other belongings home with her. Will continue to monitor.
[2021-11-08] MEDS: ALBUTEROL/IPRATROPIUM 3 ML AMPUL INH (19:36)
[2021-11-08] MEDS: BUDESONIDE 0.5 MG/2 ML NEB INH (19:36)
[2021-11-08] MEDS: DICLOFENAC 1% GEL 100 GM 1 APPLIC TOP (21:07)
[2021-11-09] VITALS (14 sets, daily range): BP systolic 104–137; BP diastolic 55–75; PULSE 63–68; RESP 16–20; TEMP 35.7–36.6; O2SAT 92–100
[2021-11-09 05:05] LABS: Add Manual Diff / Slide Review NO; Basophils Absolute Auto 0 /uL (0-100); Basophils Percent Auto 0.8 % (0-2); Eosinophils Absolute Auto 100 /uL (0-450); Eosinophils Percent Auto 1.1 % (2-4); Hematocrit 23.9 % (41-53); Lymphocytes Absolute Auto 1100 /uL (1100-4500); Lymphocytes Percent Auto 22.7 % (25-40); Mean Corpuscular HGB Conc 33.6 % (30-36); Mean Corpuscular Hemoglobin 35.3 PG (26-34); Monocytes Absolute Auto 1000 /uL (0-900); Monocytes Percent Auto 20.3 % (3-14); Neutrophils Absolute Auto 2700 /uL (1500-7000); Neutrophils Percent Auto 55.1 % (50-75); Platelet Count 185 X10^3/uL (150-400); Red Blood Cell Count 2.27 X10^6/uL (4.5-5.9); Red Cell Distribution Width 19.2 % (11.6-14.8); White Blood Cell Count 4.9 X10^3/uL (4.5-11.0)
[2021-11-09 05:19] LABS: BUN Creatinine Ratio 27.3 (6-22); Blood Urea Nitrogen 41 mg/dL (9-20); Calcium 9.2 mg/dL (8.4-10.2); Carbon Dioxide 30 mmol/L (22-32); Chloride 105 mmol/L (98-107); Estimated Glomerular Filt Rate 46 mL/min (>60); Glucose 86 mg/dL (80-110); HEMOLYSIS < 15 (0-50); Magnesium 2.3 mg/dL (1.6-2.3); Potassium 4.9 mmol/L (3.4-5.1); Sodium 141 mmol/L (137-145)
[2021-11-09] MEDS: PANTOPRAZOLE DR 20 MG TABLET PO (06:43)
[2021-11-09] MEDS: ALBUTEROL/IPRATROPIUM 3 ML AMPUL INH ×2 (07:27→20:12)
[2021-11-09] MEDS: BUDESONIDE 0.5 MG/2 ML NEB INH ×2 (07:27→20:12)
[2021-11-09] MEDS: cefTRIAXone 1,000 MG in SODIUM CHLORIDE 0.9% 100 ML 200 ML IV (09:04)
[2021-11-09] MEDS: ENOXAPARIN 40 MG/0.4 ML SYRINGE SUBCUT (09:29)
[2021-11-09] MEDS: DICLOFENAC 1% GEL 100 GM 1 APPLIC TOP ×4 (09:30→21:38)
--- NOTE | 2021-11-09 09:45 | OT.IP.TRT ---
Current Diagnoses Unspecified bacterial pneumonia (11/08/21) Occupational Therapy Treatment Note M2 OT-IP Current Condition Start: 11/09/21 12:43 Freq: Status: Active Protocol: Document 11/09/21 09:45 [facility] (Rec: 11/09/21 13:10 [facility] [id number]) Occupational Therapy Current Condition Current Condition Evaluation Date 11/09/21 Treatment Diagnosis Left sided knee effusion/acute compression T11 fx, PNA Diagnosis Onset Date 11/08/21 M3 OT- IP Subjective and Pain Start: 11/09/21 12:43 Freq: Status: Active Protocol: Document 11/09/21 09:45 [facility] (Rec: 11/09/21 13:10 [facility] [id number]) OT- Subjective Occupational Therapy Visit Type Type Initial Evaluation Visit Start Time 09:45 Visit Stop Time 10:23 Total Visit Minutes 38 Occupational Therapy Visit Comments Patient Comments Pt willing to get up and pt's present at the end of the session. Pt's states has a order analyst appointment tomorrow and was wondering if he would be able to go to the appointment. Spoke to nursing and able to relay to the pt and pt's that since he is in the hospital that pt will not be able to go to his appointment. Patient/Caregiver Goals TO go home. OT Pain Assessment Pain When Pain Assessed At Rest Pain Present Pain Present Pain Reported M4 OT- IP ADL's Start: 11/09/21 12:43 Freq: Status: Active Protocol: Document 11/09/21 09:45 [facility] (Rec: 11/09/21 13:10 [facility] [id number]) OT [id number] Comments OT Self-Feeding Comments NOt at meal time. OT ADL-Grooming General Evaluation Areas Needing Assistance Retrieving/Set-up of Grooming Items Comments OT Grooming Comments Pt able to stand with FWW at the sink to do grooming needs. OT ADL-Oral Care General Eval Oral Care Ability Independent OT ADL-Dressing General Eval Lower Body Dressing Ability Standby Assistance Comments OT Dressing Comments Pt able to cross his legs to doff/doff his socks. OT ADL-Toileting Comments OT Toileting Comments Pt not having to use the toilet. OT ADL-Bathing Comments OT Bathing Comments Pt's agrees that it would be best for him to use a shower chair, but pt not wanting to use a shower chair . Pt is agreeable to possibly shower tomorrow. M5 OT- IP IADL's Start: 11/09/21 12:43 Freq: Status: Active Protocol: Document 11/09/21 09:45 [facility] (Rec: 11/09/21 13:10 [facility] [id number]) OT-Instrumental Activities of Daily Living Money Management Money Management Caregiver Provides Assistance Meal Preparation Meal Preparation Caregiver Provides Assist Radio Program Checker Radio Program Checker Caregiver Provides Assist M6 OT- IP Functional Cognition Start: 11/09/21 12:43 Freq: Status: Active Protocol: Document 11/09/21 09:45 [facility] (Rec: 11/09/21 13:10 [facility] [id number]) Cognitive Factors Limiting Selfcare Function Cognitive Ability Level of Alertness Alert Patient Orientation Name,Place,Situation Attention Span Ability Capable of Focused Attention, Capable of Sustained Attention Ability to Follow Commands Able to Follow One Step Commands Safety Awareness Underestimates Need for Assistance Cognitive Comments Cognitive Assessment Comments Pt insistent on his care and not wanting to have or use adaptive equipment such as a shower chair. Pt however was open to using a FWW as now having knee pain from a fall. OT- Vision and Hearing OT- Vision Assessment Vision Assessment Comments Pt decreased hearing. M7 OT- IP Mobility and Balance Start: 11/09/21 12:43 Freq: Status: Active Protocol: Document 11/09/21 09:45 [facility] (Rec: 11/09/21 13:10 [facility] [id number]) OT- Bed Mobility Assessment Sit to Supine Sit to Supine Assist Moderate Assistance OT-Transfer Assessment Sit to and From Stand Sit to and from Stand Minimal Assistance Transfers Transfer Ability Minimal Assistance Technique Transfer Destination Bed,Chair Transfer Technique Stand Step Pivot Devices Transfer Assistive Devices Gait Belt,Front Wheeled Walker Comments Mobility Comments Pt CGA to DEJAH to stand with FWW and needing cues to keep the FWW close to him. OT- Balance Assessment Sitting Balance and Reactions Static Sitting Balance Ability Normal Dynamic Sitting Balance Ability Good Standing Balance and Reactions Static Standing Balance Ability Fair M8 OT- IP Objective Assessments Start: 11/09/21 12:43 Freq: Status: Active Protocol: Document 11/09/21 09:45 [facility] (Rec: 11/09/21 13:10 [facility] [id number]) OT Gross Range of Motion Upper Extremity Range of Motion ROM Impairments grossly WFL OT Strength Comments Strength Comments At least 3-/5 not formally tested due to his compression fracture. OT-Muscle Tone Assessment Muscle Tone WNL Yes M9 OT- IP Assessment and Plan Start: 11/09/21 12:43 Freq: Status: Active Protocol: Document 11/09/21 09:45 [facility] (Rec: 11/09/21 13:10 [facility] [id number]) OT Summary Assessment and Plan Potential Rehabilitation Potential Good Analytic Complexity at Evaluation Moderate Summary OT Impairments Pain,Strength,Balance, Functional Mobility,Grooming, Dressing,Toileting,Bathing, Toilet Transfers,Shower Transfers,Activity Tolerance Progress Towards Goals Slow Progress due to Medical Issues,Slow Progress due to Activity Tolerance Assessment Summary Pt MOD complexity due to steps , PNA, left knee pain , and now needing some assist for ADL and mobility needs. Pt's well aware of pt's needs and how that he is insistent for doing things his own way. Pt to go home with his when medically stable. Pt would benefit from home health but refusing. Goals Self-Feeding Goal Independent Grooming Goal Independent Dressing Goal Independent Toileting Goal Independent Bathing Goal Independent Toilet Transfer Goal Independent Shower Transfer Goal Independent Patient/Caregiver Education Goal Demonstrate Energy Conservation and Pacing Days to Meet Goals 10 Frequency of Treatment Frequency Of Treatment Once a Day Treatment Plan OT Treatment Plan ADL Training,Functional Cognition Training,Functional Mobility,Patient/Family Education,Discharge Planning Other Treatment Recommendations and Next shower Treatment Focus Discharge Recommendations OT Discharge Recommendations Home with 24/ Assist Available,Home Health Home Equipment Needs shower chair Transportation Needs at Discharge Private Vehicle
[2021-11-09] MEDS: AZITHROMYCIN 500 MG in DEXTROSE 5% IN WATER 250 ML IV (10:33)
--- NOTE | 2021-11-09 11:32 | PT.IIE ---
Current Diagnoses Unspecified bacterial pneumonia (11/09/21) Surgical History (Last Reviewed 11/08/21 @ 16:02 by Cesar Herr DO) History of carpal tunnel repair (03/02/15) History of cataract removal with insertion of prosthetic lens (02/16/15) History of cataract removal with insertion of prosthetic lens (03/09/15) History of tonsillectomy Status post appendectomy Status post colonoscopy (10/06/09) Status post repair of hydrocele (05/22/11) Medical History (Last Reviewed 11/08/21 @ 16:02 by Cesar Herr DO) Adenocarcinoma of right lung, stage 1 (~05/10/20) Anemia Benign prostatic hyperplasia (01/29/12) BPH w urinary obs/LUTS Bradycardia Cellulitis Centrilobular emphysema (12/13/16) Cholesteatoma (09/10/12) Chronic kidney disease (CKD) stage G3a/A1, moderately decreased glomerular filtration rate (GFR) between 45-59 mL/min/1.73 square meter and albuminuria creatinine ratio less than 30 mg/g COPD (chronic obstructive pulmonary disease) DNR (do not resuscitate) Hemorrhagic cerebrovascular accident (CVA) (~2006) Hydronephrosis, left Hyperlipidemia Hypertension Lower urinary tract symptoms (LUTS) Lung cancer Macrocytic anemia (07/06/16) Mild alcohol abuse (03/26/15) Olecranon bursitis Peripheral vascular disease of foot (05/31/17) Pneumonia Primary adenocarcinoma of upper lobe of right lung Sinusitis Stenosis of left femoral artery Stroke Substance abuse Syncope Syncope and collapse (09/10/12) Tobacco use disorder, continuous (09/10/12) Transient cerebral ischemia (04/23/12) Traumatic compression fracture of seventh thoracic vertebra, sequela (10/09/16) Tubular adenoma Urinary retention Physical Therapy Inpatient Evaluation/Re-Eval M1 PT/OT-IP Prior Functional Status Start: 11/09/21 13:21 Freq: NEEDED Status: Active Protocol: Document 11/09/21 11:32 AB (Rec: 11/09/21 13:36 AB [id number]) Medical Review Prior Functional Status Medical History Reviewed Yes Communication able to make needs known Mobility and Gait pt stated that he is independent with all mobilities and ambulation withotu AD Social History Household Members spouse Living Arrangements House Number of Floors (Floors) 3 or More Floors Number of Stairs To Enter/Railing? 2 steps without rails + 1 platform step to enter the house 13 steps L rail ascending to get to bedroom level Home Environment Standard Height Toilet,Tub/ Shower Home Equipment Hand Held Shower M2 PT-IP Current Condition Start: 11/09/21 13:21 Freq: NEEDED Status: Active Protocol: Document 11/09/21 11:32 AB (Rec: 11/09/21 13:36 AB [id number]) Physical Therapy Current Condition Current Condition Evaluation Date 11/09/21 Treatment Diagnosis PNA; s/p fall, T11-12, L2 compression fx; difficulty in walking Onset Date 11/08/21 M3 PT-IP Subjective Start: 11/09/21 13:21 Freq: NEEDED Status: Active Protocol: Document 11/09/21 11:32 AB (Rec: 11/09/21 13:36 AB [email or web address]) Subjective Physical Therapy Visit Type Type Initial Evaluation Visit Start Time 11:32 Visit Stop Time 11:54 Total Visit Minutes 22 Number of ENGINE HOSTLER Visits 0 Physical Therapy Visit Comments Patient Comments agreeable to do PT Therapy Pain Assessment Pain When Pain Assessed During Mobility Pain Present Pain Present Pain Reported Location Left Knee Scale Used pain scale not stated Pain Management Techniques Distraction,Modification of Treatment,Re-positioning, Timing of Activity with Medications M4 PT-IP Mobility and Gait Start: 11/09/21 13:21 Freq: NEEDED Status: Active Protocol: Document 11/09/21 11:32 AB (Rec: 11/09/21 13:36 AB [id number]) PT-Bed Mobility Assessment Supine to Sit Supine to Sit Standby Assistance,Bedrails Sit to Supine Sit to Supine Standby Assistance PT-Transfer Assessment Sit to and From Stand Sit to and from Stand Minimal Assistance,1 Person Assistance,Use of Upper Extremities Equipment Transfer Assistive Device Gait Belt,Front Wheeled Walker Orthotic/Prosthetic Devices or Brace: No Transfers Transfer Destination Bed,Chair Transfer Technique ambulated Transfer Ability Level of Assist Minimal Assistance,Moderate Assistance,1 Person Assistance ,Use of Upper Extremities Comments Mobility Comments pt sitting on chair. completed sit to stand min A and ambulated ~ 3 ft without AD mod A and cues and with unsteady gait with pt reaching for IV pole/counter for support; positioned FWW for pt to use and completed another ~ 10 ft towards the bed min A and cues. completed sit to supine SBA and supine to sit SBA but with difficulty and required ~ 3 attempts to complete task. (+) SOB: O2 sat: 93-94%. pt ambulated back to the chair using FWW min A and cues. positioned pt on the chair. call light and table placed within reach. Gait Assessment Gait Gait Assistance Required: Minimum Assistance Distance (Feet) 12 Able to Maintain Weight Bearing Status Yes During Gait Assistive Devices Assistive Device Gait Belt,Front Wheeled Walker Orthotic/Prosthetic Devices or Brace: No Gait Deviations General Gait Pattern Decreased Stride Length, Decreased Feet Clearance,Step- to Gait Factors Limiting Gait Function Factors Limiting Gait Function Decreased Activity Tolerance, Decreased Strength,Pain,Poor Balance,Poor Safety Awareness, Respiratory Distress PT-Balance Assessment Sitting Balance and Reactions Static Sitting Balance Ability Good Dynamic Sitting Balance Ability Good Standing Balance and Reactions Static Standing Balance Ability Fair Dynamic Standing Balance Ability Fair Device Used FWW M5 PT-IP Objective Assessments Start: 11/09/21 13:21 Freq: NEEDED Status: Active Protocol: Document 11/09/21 11:32 AB (Rec: 11/09/21 13:36 AB [id number]) Orientation Orientation/Cognition Level of Alertness Alert Orientation Name,Place,Situation Language Function Ability Hard of Hearing Safety Awareness Decreased Safety Awareness Memory Description No Deficits Noted Gross Range of Motion Lower Extremity ROM Assessment Within Functional Limits Strength Lower Extremity Strength Assessment Within Functional Limits Coordination Assessment Gross Coordination Gross Coordination WNL Muscle Tone Muscle Tone WNL Yes M6 PT-IP Treatment Start: 11/09/21 13:21 Freq: NEEDED Status: Active Protocol: Document 11/09/21 11:32 AB (Rec: 11/09/21 13:36 AB [email or web address]) Physical Therapy Treatment Education Education Provided Safety M7 PT-IP Assessment and Plan Start: 11/09/21 13:21 Freq: NEEDED Status: Active Protocol: Document 11/09/21 11:32 AB (Rec: 11/09/21 13:36 AB [email or web address]) PT Summary Assessment and Plan Potential Rehabilitation Potential Good Status of Condition at Evaluation Evolving Summary Impairments Pain,ROM,Strength,Balance, Coordination,Sensation,Tone, Cognition,Bed Mobility, Transfers,Gait,Activity Tolerance Assessment Summary pt requiring min A with mobility and will require use of FWW at this time. pt continues to c/o L knee pain and presents with unsteady gait without AD. pt lives with spouse and spouse to assist him. will continue to assess progress. Goals Bed Mobility Goal Independent Transfer Goal Independent,Front Wheeled Walker Gait Goal Independent,Front Wheel Walker Gait Distance 200 Other Goals improve ambulation without AD 200 ft SBA up/down 2 steps without rails SBA up/down 1 platform step without AD SBA up/down 13 steps L rail ascending SBA Days to Meet Goals 10 Frequency of Treatment Frequency Of Treatment Once a Day Treatment Plan Physical Therapy Treatment Plan Bed Mobility Training,Transfer Training,Gait Training, Therapeutic Exercise,Balance Retraining,Discharge Planning, Hot or Cold Pack,Neuromuscular Re-ed,Coordination Retraining ,Manual Therapy Precautions Other Precautions falls Recommendations To Nursing Amount of Assist Needed 1 Person Assist Discharge Recommendations PT Discharge Recommendations Home with Assistance, Outpatient PT Other Discharge Recommendations FWW if not safe without AD Transportation Needs at Discharge Private Vehicle
--- NOTE | 2021-11-09 13:14 | CM.DANOTE ---
Patient is an 85 yo male who was admitted on 11/08/21 for Fall/Pain/Blood. Pt has [facility] and [employer] for insurance and his PCP is Valarie Noel and Onc is Dr. Rush at [facility]. EMR was reviewed. Per MD, pt with hx of CVA, COPD, home O2, lung CA and had GLF and admitted with pneumonia and IV-Abx. PT/OT ordered and per OT pt ambulated fairly well with spouse bedside and recommend FWW but pt and spouse state pt is quite stubborn and will refuse recommendations. Feel pt will be safe for d/c home with spouse assist and will likely decline any further recommendations. SW met bedside with pt, who is fairly [place], and explained role and he confirms that spouse just left to go home. Pt confirms they live in [place] and are mostly independent with ADL's but also have local supportive family. Pt states his spouse is his DPOA and he denies any hx of HH or SNF and preference is home via spouse POV when medically stable. Plan: SW to follow for plan of home via spouse POV and any further identified discharge planning needs. YING Dumont Discharge Planning/Care Management CM Discharge Assessment Start: 11/09/21 13:12 Freq: Status: Active Protocol: Document 11/09/21 13:13 BF (Rec: 11/09/21 13:14 BF [id number]) Discharge Planning Assessment Assigned Residential Monitor YING Strange DPOA/Assigned Designee Name Spouse Arely Contact Information [phone] Advance Directives? No Advance Directives on File No History Provided By Patient,Significant Other, Medical Record Has Patient been admitted in last 30 Yes days? Comment Pt was last admitted in September 2021 and was able to d/c home with spouse Prior Living Arrangements House Household Members spouse Type of transporation used prior to Drives own vehicle admit Independent with ADL's Yes Is patient alert and oriented? Yes Caregiver for Another No Barriers to Discharge No Discharge Plan Home Transportation Arrangement Spouse Referrals Initiated None needed,Other Whiteboard Updated in Patient Room with Yes name and ext. # of Residential Monitor Review Status In Process Please Provide Date Initial DC 11/09/21 Assessment Was Performed Next Review Type Continued Stay Review
--- NOTE | 2021-11-09 15:18 | P.PN_ITS ---
Subjective Subjective Interval history: Patient reports feeling better this morning. He denies any sputum production overnight. Denies any acute complaints. Exam Vital Signs (past 8 hours): - 11/09/21 07:28 11/09/21 08:00 11/09/21 09:30 Temperature 96.4 F L Pulse Rate 65 66 Respiratory Rate 18 20 Blood Pressure 108/60 Pulse Oximetry 93 96 96 11/09/21 12:30 11/09/21 14:01 11/09/21 15:09 Temperature 96.2 F L Pulse Rate 63 Respiratory Rate 18 Blood Pressure 109/66 Pulse Oximetry 97 98 98 Oxygen Delivery Method Room Air Oxygen Flow Rate 0 Const Other: Patient sitting up in chair comfortably upon my entering the room, in no ap parent acute distress Eyes Other: No scleral icterus appreciated Resp Other: Rales appreciated bilaterally, worse on the right GI Other: Soft, non-distended, non-tender, bowel sounds present Skin Other: No grossly abnormal skin lesions noted Extrem Other: Palpable radial pulses bilaterally Objective Labs Result Diagrams: 11/09/21 04:43 11/09/21 04:43 Labs: Laboratory Results - last 24 hr 11/09/21 11/09/21 04:43 04:43 WBC 4.9 RBC 2.27 L Hgb 8.0 L Hct 23.9 L MCV 105.0 H MCH 35.3 H MCHC 33.6 RDW 19.2 H Plt Count 185 Neut % (Auto) 55.1 Lymph % (Auto) 22.7 L [place] % (Auto) 20.3 H Eos % (Auto) 1.1 L Baso % (Auto) 0.8 Neut # (Auto) 2700 Lymph # (Auto) 1100 [place] # (Auto) 1000 H Eos # (Auto) 100 Baso # (Auto) 0 Sodium 141 Potassium 4.9 Chloride 105 Carbon Dioxide 30 BUN 41 H Creatinine 1.50 H Estimated GFR 46 L BUN/Creatinine Ratio 27.3 H Glucose 86 Calcium 9.2 Magnesium 2.3 PFSH Medical History Adenocarcinoma of right lung, stage 1 (~05/10/20) Anemia Benign prostatic hyperplasia (01/29/12) BPH w urinary obs/LUTS Bradycardia Cellulitis Centrilobular emphysema (12/13/16) Cholesteatoma (09/10/12) Chronic kidney disease (CKD) stage G3a/A1, moderately decreased glomerular filtration rate (GFR) between 45-59 mL/min/1.73 square meter and albuminuria creatinine ratio less than 30 mg/g COPD (chronic obstructive pulmonary disease) DNR (do not resuscitate) Hemorrhagic cerebrovascular accident (CVA) (~2006) Hydronephrosis, left Hyperlipidemia Hypertension Lower urinary tract symptoms (LUTS) Lung cancer Macrocytic anemia (07/06/16) Mild alcohol abuse (03/26/15) Olecranon bursitis Peripheral vascular disease of foot (05/31/17) Pneumonia Primary adenocarcinoma of upper lobe of right lung Sinusitis Stenosis of left femoral artery Stroke Substance abuse Syncope Syncope and collapse (09/10/12) Tobacco use disorder, continuous (09/10/12) Transient cerebral ischemia (04/23/12) Traumatic compression fracture of seventh thoracic vertebra, sequela (10/09/16) Tubular adenoma Urinary retention Surgical History History of carpal tunnel repair (03/02/15) History of cataract removal with insertion of prosthetic lens (02/16/15) History of cataract removal with insertion of prosthetic lens (03/09/15) History of tonsillectomy Status post appendectomy Status post colonoscopy (10/06/09) Status post lobectomy of lung (~04/2020) Status post repair of hydrocele (05/22/11) Family History Brother Lung cancer Father Lung cancer Mother Migraines Social History marital status: number of children: 2 household members: spouse Smoking Status: Current every day smoker Tobacco: How many years used: 69 quit status: considering quitting alcohol intake: current caffeine: Yes Assessment & Plan Assessment & Plan narrative: Mr. 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 1. Community acquired pneumonia, multilobar bacterial pneumonia, hemoptysis ?- IV ceftriaxone and azithromycin on-board, from November 08, 2021 2. Left knee effusion, traumatic, after ground level fall ?- PT/OT on-board and appreciate their recommendations 3. Acute lumbar compression fracture, stable 4. Chronic hypoxemic respiratory failure, COPD without exacerbation ?- Goal O2 >89% while on room air. Supplement as needed. ?- Continue home medications / inhalers with formulary replacements 5. s/p PPM placement, CAD ?- Continue home medications. No current chest pain. Has known coronary stenosis and needs PCI but cardiology note states waiting until Hg is >10. 6. CKD stage III, stable 7. HTN ?- Continue home medications 8. Chronic anemia, stable Code [place]: DNR I have utilized all available immediate resources to obtain, update, or review the patient's current medications. Time Spent With Patient Critical Care time: I spent a total of [] minutes of critical care time on this patient's care today; this time is exclusive of procedural time. Quality MIPS - Admit I confirm the patient?s Advance Care Plan is present, Code status is documented, Surrogate decision maker is in patient?s record [If Yes, STOP here]: Yes
[2021-11-10 00:08] VITALS: BP 126/67; PULSE 67; RESP 18; TEMP 36.6; O2SAT 96
[2021-11-10 02:58] VITALS: O2SAT 96
[2021-11-10 04:20] VITALS: BP 144/68; PULSE 67; RESP 18; TEMP 36.7; O2SAT 93
--- NOTE | 2021-11-10 05:41 | PC.NURSE ---
patient had a great night. funny and joking, smiling. used call light appropriately at HS for wanting to go to bed. did not show unsafe body mechanics or maneuvers. LS diminished through-out, IS brought in at HS, he is able to get to 2000 easily, no coughing. remains afebrile. tolerated RA all noc, spo2 95-98%. 1pa SBA for mobility and ADL assistance. icy/hot cream applied to knees. anticipate d/c home to spouse today.
[2021-11-10] MEDS: PANTOPRAZOLE DR 20 MG TABLET PO (06:16)
[2021-11-10 07:23] VITALS: PULSE 63; RESP 18; O2SAT 94
[2021-11-10] MEDS: BUDESONIDE 0.5 MG/2 ML NEB INH (07:23)
[2021-11-10] MEDS: ALBUTEROL/IPRATROPIUM 3 ML AMPUL INH (07:23)
[2021-11-10 07:51] VITALS: BP 135/68
[2021-11-10] MEDS: cefTRIAXone 1,000 MG in SODIUM CHLORIDE 0.9% 100 ML 200 ML IV (07:54)
[2021-11-10 08:20] LABS: Add Manual Diff / Slide Review NO; Basophils Absolute Auto 100 /uL (0-100); Basophils Percent Auto 1.1 % (0-2); Eosinophils Absolute Auto 100 /uL (0-450); Eosinophils Percent Auto 1.3 % (2-4); Hematocrit 22.9 % (41-53); Hemoglobin 7.6 g/dL (13.5-17.5); Lymphocytes Absolute Auto 1200 /uL (1100-4500); Lymphocytes Percent Auto 24.1 % (25-40); Mean Corpuscular HGB Conc 33.2 % (30-36); Mean Corpuscular Hemoglobin 35.3 PG (26-34); Mean Corpuscular Volume 106.5 fL (80-100); Monocytes Absolute Auto 900 /uL (0-900); Monocytes Percent Auto 18.2 % (3-14); Neutrophils Absolute Auto 2800 /uL (1500-7000); Neutrophils Percent Auto 55.3 % (50-75); Platelet Count 205 X10^3/uL (150-400); Red Blood Cell Count 2.15 X10^6/uL (4.5-5.9); Red Cell Distribution Width 19.9 % (11.6-14.8); White Blood Cell Count 5.1 X10^3/uL (4.5-11.0)
[2021-11-10 08:26] LABS: BUN Creatinine Ratio 25.6 (6-22); Blood Urea Nitrogen 40 mg/dL (9-20); Calcium 9.3 mg/dL (8.4-10.2); Carbon Dioxide 30 mmol/L (22-32); Chloride 106 mmol/L (98-107); Estimated Glomerular Filt Rate 44 mL/min (>60); Glucose 94 mg/dL (80-110); HEMOLYSIS < 15 (0-50); Magnesium 2.2 mg/dL (1.6-2.3); Sodium 140 mmol/L (137-145)
[2021-11-10 08:27] LABS: Potassium 5.4 mmol/L (3.4-5.1)
[2021-11-10] MEDS: AZITHROMYCIN 500 MG in DEXTROSE 5% IN WATER 250 ML IV (08:53)
[2021-11-10] MEDS: ENOXAPARIN 40 MG/0.4 ML SYRINGE SUBCUT (08:53)
[2021-11-10 08:54] VITALS: O2SAT 94
[2021-11-10] MEDS: DICLOFENAC 1% GEL 100 GM 1 APPLIC TOP (08:54)
--- NOTE | 2021-11-10 10:58 | OT.IPNOTE ---
Pt not wanting to get up for OT as going home today. Pt realizes that he needs to be careful and mindful to use the FWW as needed.
--- NOTE | 2021-11-10 12:04 | PM.PN.1 ---
Subjective Subjective Interval history: The patient reports feeling well this morning. He reports being back to his baseline health. He is eager to be discharged home as he feels much better and feels like he can recuperate better there. is at bedside and agrees. They are both aware that he will need to finish a few more days of abx, PO levofloxacin. Exam Vital Signs (past 8 hours): - 11/10/21 04:20 11/10/21 07:23 11/10/21 07:51 Temperature 98.0 F Pulse Rate 67 63 Respiratory Rate 18 18 Blood Pressure 144/68 H 135/68 Pulse Oximetry 93 94 Oxygen Delivery Method Room Air Oxygen Flow Rate 0 Narrative Exam Narrative: Const Other: Patient sitting up in bed comfortably upon my entering the room, in no apparent acute distress Eyes Other: No scleral icterus appreciated Resp Other: Rales appreciated bilaterally, worse on the right GI Other: Soft, non-distended, non-tender, bowel sounds present Skin Other: No grossly abnormal skin lesions noted Extrem Other: Palpable radial pulses bilaterally Objective Labs Result Diagrams: 11/10/21 07:23 11/10/21 07:23 Labs: Laboratory Results - last 24 hr 11/10/21 11/10/21 07:23 07:23 WBC 5.1 RBC 2.15 L Hgb 7.6 L Hct 22.9 L MCV 106.5 H MCH 35.3 H MCHC 33.2 RDW 19.9 H Plt Count 205 Neut % (Auto) 55.3 Lymph % (Auto) 24.1 L [place] % (Auto) 18.2 H Eos % (Auto) 1.3 L Baso % (Auto) 1.1 Neut # (Auto) 2800 Lymph # (Auto) 1200 [place] # (Auto) 900 Eos # (Auto) 100 Baso # (Auto) 100 Sodium 140 Potassium 5.4 H Chloride 106 Carbon Dioxide 30 BUN 40 H Creatinine 1.56 H Estimated GFR 44 L BUN/Creatinine Ratio 25.6 H Glucose 94 Calcium 9.3 Magnesium 2.2 PFSH Medical History Adenocarcinoma of right lung, stage 1 (~05/10/20) Anemia Benign prostatic hyperplasia (01/29/12) BPH w urinary obs/LUTS Bradycardia Cellulitis Centrilobular emphysema (12/13/16) Cholesteatoma (09/10/12) Chronic kidney disease (CKD) stage G3a/A1, moderately decreased glomerular filtration rate (GFR) between 45-59 mL/min/1.73 square meter and albuminuria creatinine ratio less than 30 mg/g COPD (chronic obstructive pulmonary disease) DNR (do not resuscitate) Hemorrhagic cerebrovascular accident (CVA) (~2006) Hydronephrosis, left Hyperlipidemia Hypertension Lower urinary tract symptoms (LUTS) Lung cancer Macrocytic anemia (07/06/16) Mild alcohol abuse (03/26/15) Olecranon bursitis Peripheral vascular disease of foot (05/31/17) Pneumonia Primary adenocarcinoma of upper lobe of right lung Sinusitis Stenosis of left femoral artery Stroke Substance abuse Syncope Syncope and collapse (09/10/12) Tobacco use disorder, continuous (09/10/12) Transient cerebral ischemia (04/23/12) Traumatic compression fracture of seventh thoracic vertebra, sequela (10/09/16) Tubular adenoma Urinary retention Surgical History History of carpal tunnel repair (03/02/15) History of cataract removal with insertion of prosthetic lens (02/16/15) History of cataract removal with insertion of prosthetic lens (03/09/15) History of tonsillectomy Status post appendectomy Status post colonoscopy (10/06/09) Status post lobectomy of lung (~04/2020) Status post repair of hydrocele (05/22/11) Family History Brother Lung cancer Father Lung cancer Mother Migraines Social History marital status: number of children: 2 household members: spouse Smoking Status: Current every day smoker Tobacco: How many years used: 69 quit status: considering quitting alcohol intake: current caffeine: Yes Assessment & Plan Assessment & Plan narrative: Mr. 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 1. Community acquired pneumonia, multilobar bacterial pneumonia, hemoptysis ?- IV ceftriaxone and azithromycin on-board, from November 08, 2021, completed inpatient - Will discharge home on PO levofloxacin 750 mg daily for 7 more days of abx therapy 2. Left knee effusion, traumatic, after ground level fall, stable 3. Mild acute vertebral compression fracture of T11, stable 4. Chronic hypoxemic respiratory failure, COPD without exacerbation ?- Goal O2 >89% while on room air. Supplement as needed. ?- Continue home medications / inhalers with formulary replacements 5. s/p PPM placement, CAD ?- Continue home medications. No current chest pain. Has known coronary stenosis and needs PCI but cardiology note states waiting until Hg is >10. 6. CKD stage III, stable 7. HTN ?- Continue home medications 8. Chronic anemia, stable Time Spent With Patient Critical Care time: I spent a total of [] minutes of critical care time on this patient's care today; this time is exclusive of procedural time.
--- NOTE | 2021-11-10 12:07 | P.DS_ITS ---
History of Present Illness History of Present Illness Chief complaint: Fell and having knee/back pain. spitting blood Narrative: Mr. 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 Patient states for the pa st couple of days he has had increasing cough with bloody sputum.? He denies any fevers or chills, worsening shortness of breath from his baseline, sick contacts, abdominal pain, nausea, vomiting, dysuria, or urinary frequency.? He did feel a bit weaker starting today which he thinks resulted in his fall as he was going down some stairs.? He did not hit his head or lose consciousness.? Hit his left side and has predominantly left-sided knee pain and left-sided hip pain. In the emergency room, the patient's vital signs were fairly unremarkable.? Imaging did show a left-sided knee effusion, but no acute fractures in his extremities.? There potentially is a new acute compression fracture in his spine.? D-dimer was elevated and so patient underwent a CT angiogram of his chest which did not reveal any evidence of PE but did show bilateral pleural effusions in a multifocal pneumonia.? Patient was admitted for pneumonia as well as difficulty with ambulation after his fall. Written by admitting provider. Discharge Providers Provider Date of admission: 11/09/21 09:50 Discharge Date: 11/10/21 Primary care physician: Valarie Noel MD Consults: 11/08/21 14:42 Consult to Pharmacognosist Routine Comment: 11/08/21 16:12 Consult to Respiratory Therapy Evaluate & Treat Comment: Physician Instructions: Evaluate and treat 11/08/21 16:37 Consult to Occupational Therapy Evaluate & Treat Comment: Physician Instructions: Evaluate and treat 11/08/21 16:38 Consult to Physical Therapy Evaluate & Treat Comment: Physician Instructions: Evaluate and Treat Discharge provider: Leatha Atkins MD Summary Hospital Course Discharge Diagnosis: Mr. 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 1. Community acquired pneumonia, multilobar bacterial pneumonia, hemoptysis ?- IV ceftriaxone and azithromycin on-board, from November 08, 2021, completed [facility] ?- Will discharge home on PO levofloxacin 750 mg daily for 7 more days of abx therapy 2. Left knee effusion, traumatic, after ground level fall, stable 3. Mild acute vertebral compression fracture of T11, stable 4. Chronic hypoxemic respiratory failure, COPD without exacerbation ?- Goal O2 >89% while on room air. Supplement as needed. ?- Continue home medications / inhalers with formulary replacements 5. s/p PPM placement, CAD ?- Continue home medications. No current chest pain. Has known coronary stenosis and needs PCI but cardiology note states waiting until Hg is >10. 6. CKD stage III, stable 7. HTN ?- Continue home medications 8. Chronic anemia, stable Exam Vital Signs (past 8 hours): - 11/10/21 04:20 11/10/21 07:23 11/10/21 07:51 Temperature 98.0 F Pulse Rate 67 63 Respiratory Rate 18 18 Blood Pressure 144/68 H 135/68 Pulse Oximetry 93 94 Oxygen Delivery Method Room Air Oxygen Flow Rate 0 Objective Labs Result Diagrams: 11/10/21 07:23 11/10/21 07:23 Labs: Laboratory Results - last 24 hr 11/10/21 11/10/21 07:23 07:23 WBC 5.1 RBC 2.15 L Hgb 7.6 L Hct 22.9 L MCV 106.5 H MCH 35.3 H MCHC 33.2 RDW 19.9 H Plt Count 205 Neut % (Auto) 55.3 Lymph % (Auto) 24.1 L Prentiss % (Auto) 18.2 H Eos % (Auto) 1.3 L Baso % (Auto) 1.1 Neut # (Auto) 2800 Lymph # (Auto) 1200 Prentiss # (Auto) 900 Eos # (Auto) 100 Baso # (Auto) 100 Sodium 140 Potassium 5.4 H Chloride 106 Carbon Dioxide 30 BUN 40 H Creatinine 1.56 H Estimated GFR 44 L BUN/Creatinine Ratio 25.6 H Glucose 94 Calcium 9.3 Magnesium 2.2 PFSH Medical History Adenocarcinoma of right lung, stage 1 (~05/10/20) Anemia Benign prostatic hyperplasia (01/29/12) BPH w urinary obs/LUTS Bradycardia Cellulitis Centrilobular emphysema (12/13/16) Cholesteatoma (09/10/12) Chronic kidney disease (CKD) stage G3a/A1, moderately decreased glomerular filtration rate (GFR) between 45-59 mL/min/1.73 square meter and albuminuria creatinine ratio less than 30 mg/g COPD (chronic obstructive pulmonary disease) DNR (do not resuscitate) Hemorrhagic cerebrovascular accident (CVA) (~2006) Hydronephrosis, left Hyperlipidemia Hypertension Lower urinary tract symptoms (LUTS) Lung cancer Macrocytic anemia (07/06/16) Mild alcohol abuse (03/26/15) Olecranon bursitis Peripheral vascular disease of foot (05/31/17) Pneumonia Primary adenocarcinoma of upper lobe of right lung Sinusitis Stenosis of left femoral artery Stroke Substance abuse Syncope Syncope and collapse (09/10/12) Tobacco use disorder, continuous (09/10/12) Transient cerebral ischemia (04/23/12) Traumatic compression fracture of seventh thoracic vertebra, sequela (10/09/16) Tubular adenoma Urinary retention Surgical History History of carpal tunnel repair (03/02/15) History of cataract removal with insertion of prosthetic lens (02/16/15) History of cataract removal with insertion of prosthetic lens (03/09/15) History of tonsillectomy Status post appendectomy Status post colonoscopy (10/06/09) Status post lobectomy of lung (~04/2020) Status post repair of hydrocele (05/22/11) Family History Brother Lung cancer Father Lung cancer Mother Migraines Social History marital status: number of children: 2 household members: spouse Smoking Status: Current every day smoker Tobacco: How many years used: 69 quit status: considering quitting alcohol intake: current caffeine: Yes Discharge Assessment & Plan Assessment and Plan Assessment: Mr. 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 1. Community acquired pneumonia, multilobar bacterial pneumonia, hemoptysis ?- IV ceftriaxone and azithromycin on-board, from November 08, 2021, completed inpatient ?- Will discharge home on PO levofloxacin 750 mg daily for 7 more days of abx therapy 2. Left knee effusion, traumatic, after ground level fall, stable 3. Mild acute vertebral compression fracture of T11, stable 4. Chronic hypoxemic respiratory failure, COPD without exacerbation ?- Goal O2 >89% while on room air. Supplement as needed. ?- Continue home medications / inhalers with formulary replacements 5. s/p PPM placement, CAD ?- Continue home medications. No current chest pain. Has known coronary stenosis and needs PCI but cardiology note states waiting until Hg is >10. 6. CKD stage III, stable 7. HTN ?- Continue home medications 8. Chronic anemia, stable Discharge Plan Discharge Plan Patient Disposition: Home Discharge orders & Medications Prescriptions: New levofloxacin 750 mg tablet 750 mg PO DAILY 7 Days Qty: 7 0RF Continued fluticasone furoate-vilanterol 200-25 mcg/dose blister with device 1 inh INHALATION DAILY Qty: 60 6RF albuterol sulfate [Ventolin HFA] 90 mcg/actuation HFA aerosol inhaler See Rx Instructions .ROUTE .COMPLEX Qty: 18 2RF Dose Instruction: INHALE 2 PUFFS INTO THE LUNGS EVERY 4 HOURS NEEDED FOR SHORTNESS OF BREATH OR WHEEZING. ADMINISTER WITH SPACER Rx Instructions: INHALE 2 PUFFS INTO THE LUNGS EVERY 4 HOURS NEEDED FOR SHORTNESS OF BREATH OR WHEEZING. ADMINISTER WITH SPACER Incruse Ellipta 62.5 mcg/actuation blister with device See Rx Instructions .ROUTE .COMPLEX Qty: 30 3RF Dose Instruction: INHALE 1 PUFF INTO THE LUNGS EVERY DAY Rx Instructions: INHALE 1 PUFF INTO THE LUNGS EVERY DAY rosuvastatin 5 mg tablet See Rx Instructions .ROUTE .COMPLEX Qty: 90 0RF Dose Instruction: TAKE 1 TABLET BY MOUTH DAILY Rx Instructions: TAKE 1 TABLET BY MOUTH DAILY amlodipine 5 mg tablet See Rx Instructions .ROUTE .COMPLEX Qty: 180 3RF Dose Instruction: TAKE 1 TABLET BY MOUTH TWICE DAILY Rx Instructions: TAKE 1 TABLET BY MOUTH TWICE DAILY aspirin 81 mg tablet,chewable 81 mg PO DAILY 0RF omeprazole 20 mg capsule,delayed release(DR/EC) 20 mg PO DAILY 0RF multivitamin [Tab-A-Iqra] Tablet 1 tab PO DAILY Qty: 30 0RF thiamine HCl (vitamin B1) [Vitamin B-1] 100 mg Tablet 100 mg PO DAILY Qty: 30 0RF magnesium 250 mg Tablet 250 mg PO DAILY 0RF Breo Ellipta 200-25 mcg/dose Blister With Device 1 inh INHALATION DAILY 0RF lidocaine [Blue-Emu Lidocaine Patch] 4 % Adhesive Patch,Medicated 1 patch TOPICAL DAILY PRN (Reason: Pain (Scale Score 4-6)) 0RF furosemide [Lasix] 20 mg tablet 10 mg PO QAM Qty: 3 0RF diclofenac sodium 1 % gel 2 g topical QID Qty: 100 0RF Rx Instructions: apply to single elbow, wrist or hand; for hand includes palm/fingers/back of hand Discontinued lidocaine 5 % adhesive patch,medicated 1 patch topical DAILY Qty: 15 0RF Rx Instructions: leave on most painful area for up to 12 hrs diclofenac sodium 1 % gel 2 g topical QID Qty: 100 0RF Rx Instructions: apply to single elbow, wrist or hand; for hand includes palm/fingers/back of hand furosemide [Lasix] 20 mg tablet 20 mg PO DAILY Qty: 3 0RF Follow up/Referrals: Valarie Noel MD [Primary Care Provider] - Discharge Data Primary Care Provider: Valarie Noel
--- NOTE | 2021-11-10 12:17 | PT-IP ANOTE ---
Pt refusing PT stating he has no further needs and feels ready to go home. Encouraged pt to use FWW at home.
--- NOTE | 2021-11-10 14:36 | CM.DPNOTE ---
DC Note Home w/spouse Arely today; met w/patient and spouse and both in good spirits. Arely denies needs from this [employer] at this time Plan: LUIZA home w/spouse and close outpatient f/u recommended JW
== END 2021-11-10 13:05 | disposition home or self-care (01) | DRG 194 ==
LOC: ED 12:03 → AC 12:05
PROVIDERS: Admitting Provider Internal Medicine; Emergency Provider Emergency Medicine; PCP Family Medicine; Referring Provider Emergency Medicine; Visit Provider Internal Medicine
DX: J15.9 Unspecified bacterial pneumonia (principal); S22.080A Wedge compression fracture of T11-T12 vertebra, initial encounter for closed fracture; R04.2 Hemoptysis; J90 Pleural effusion, not elsewhere classified; J96.10 Chronic respiratory failure, unspecified whether with hypoxia or hypercapnia; M25.462 Effusion, left knee; J44.9 Chronic obstructive pulmonary disease, unspecified; I25.10 Atherosclerotic heart disease of native coronary artery without angina pectoris; M25.552 Pain in left hip; E78.5 Hyperlipidemia, unspecified; I12.9 Hypertensive chronic kidney disease with stage 1 through stage 4 chronic kidney disease, or unspecified chronic kidney disease; N18.30 Chronic kidney disease, stage 3 unspecified; F17.210 Nicotine dependence, cigarettes, uncomplicated; W10.9XXA Fall (on) (from) unspecified stairs and steps, initial encounter; Z99.81 Dependence on supplemental oxygen; Z95.0 Presence of cardiac pacemaker; Z20.822 Contact with and (suspected) exposure to COVID-19; Z66 Do not resuscitate
CPT/HCPCS: 36415; 71046; 71275; 72100; 73502; 73562; 80048; 80053; 81001; 82550; 83605; 83735; 83880; 84145; 84484; 85025; 85379; 87040; 87070; 87205; 87635; 93005; 94640; 94760; 96365; 96366; 96367; 97162; 97166; 99284; 99285; C9803; G0378; J0696; J1650; Q9967

== ENCOUNTER → 2021-11-14 13:46 | Outpatient (CLI) | payer MEDICARE, OTHER, SELFPAY ==
[2021-11-08 14:31] VITALS: BMI 24.7
[2021-11-14 14:53] LABS: Add Manual Diff / Slide Review NO; Basophils Absolute Auto 0 /uL (0-100); Basophils Percent Auto 0.8 % (0-2); Eosinophils Absolute Auto 0 /uL (0-450); Eosinophils Percent Auto 0.7 % (2-4); Hematocrit 22.6 % (41-53); Hemoglobin 7.5 g/dL (13.5-17.5); Lymphocytes Absolute Auto 700 /uL (1100-4500); Lymphocytes Percent Auto 21.8 % (25-40); Mean Corpuscular HGB Conc 33.1 % (30-36); Mean Corpuscular Hemoglobin 35.6 PG (26-34); Mean Corpuscular Volume 107.8 fL (80-100); Monocytes Absolute Auto 700 /uL (0-900); Monocytes Percent Auto 19.6 % (3-14); Neutrophils Absolute Auto 1900 /uL (1500-7000); Neutrophils Percent Auto 57.1 % (50-75); Platelet Count 213 X10^3/uL (150-400); Red Blood Cell Count 2.09 X10^6/uL (4.5-5.9); Red Cell Distribution Width 20.3 % (11.6-14.8); White Blood Cell Count 3.4 X10^3/uL (4.5-11.0)
[2021-11-14 15:12] LABS: BUN Creatinine Ratio 23.2 (6-22); Blood Urea Nitrogen 66 mg/dL (9-20); Calcium 9.3 mg/dL (8.4-10.2); Carbon Dioxide 30 mmol/L (22-32); Chloride 108 mmol/L (98-107); Cholesterol 166 mg/dL (140-199); Estimated Glomerular Filt Rate 21 mL/min (>60); Glucose 91 mg/dL (80-110); HDL Cholesterol 75 mg/dL (40-60); HEMOLYSIS < 15 (0-50); LDL Cholesterol Calculated 76 mg/dL (<100); Sodium 143 mmol/L (137-145); Triglycerides 77 mg/dL (35-150)
[2021-11-14 15:15] LABS: Potassium 5.8 mmol/L (3.4-5.1)
[2021-11-14 16:25] LABS: Anisocytosis 1+; Macrocytosis 2+; Platelet Estimate Adequate on smear
== END ==
PROVIDERS: PCP Family Medicine; Referring Provider Internal Medicine Cardiovascular Disease; Visit Provider Internal Medicine Cardiovascular Disease
DX: I10 Essential (primary) hypertension (principal); D64.9 Anemia, unspecified; E78.5 Hyperlipidemia, unspecified
CPT/HCPCS: 36415; 80048; 80061; 85025

== ENCOUNTER 2021-11-15 17:02 | Inpatient (IN) | payer MEDICARE, OTHER, SELFPAY ==
[2021-11-08 14:31] VITALS: BMI 24.7
[2021-11-15] VITALS (22 sets, daily range): BP systolic 113–147; BP diastolic 59–69; PULSE 60–64; RESP 14–60; TEMP 35.6–36.6; O2SAT 91–100; BMI 25.7
--- NOTE | 2021-11-15 17:52 | DI.RAD.S_ITS ---
PROCEDURE: XR CHEST 1V INDICATIONS: chest pain TECHNIQUE: One view of the chest was acquired. COMPARISON: [facility], CR, XR CHEST 2V, 11/08/2021, 6:53. FINDINGS: Surgical changes and devices: Single lead left-sided pacemaker. Overlying monitoring wires. Surgical changes of partial right upper lobectomy. Lungs and pleura: Irregular right lateral apical pleural thickening. Mild supra and infrahilar opacities, improved since the prior study. Small scattered left mid lung opacities. No pleural effusions or pneumothorax. Mediastinum: Mediastinal contours appear normal. Heart size is normal. Bones and chest wall: No suspicious bony lesions. Overlying soft tissues appear unremarkable. IMPRESSION: 1. Resolving multifocal right upper and lower lobe parenchymal opacities. 2. Minor left mid lung opacities, relatively stable. 3. Left central venous congestion compared to prior. Dictated by: Shyla Beaulieu M.D. on 11/15/2021 at 18:45 Approved by: Shyla Beaulieu M.D. on 11/15/2021 at 18:48
--- NOTE | 2021-11-15 17:57 | DI.CT.S_ITS ---
PROCEDURE: CT HEAD/BRAIN WO CON INDICATIONS: falls/hit head TECHNIQUE: Noncontrast 4.5 mm thick angled axial sections acquired from the foramen magnum to the vertex, with coronal and sagittal reformats. For radiation dose reduction, the following was used: automated exposure control, adjustment of mA and/or kV according to patient size. COMPARISON: [facility], CT, CT HEAD/BRAIN WO CON, 09/19/2021, 15:50. FINDINGS: Image quality: Excellent. CSF spaces: Basal cisterns are patent. No extra-axial fluid collections. The ventricles are symmetric in size and shape. Brain: No intracranial bleeds or masses. There is cerebral volume loss for age, with resultant ventricular and sulcal prominence. There are several chronic lacunar infarcts in periventricular white matter and deep car matter without significant progression since the most recent prior study. There are periventricular and deep white matter chronic small vessel ischemic changes. There is intracranial internal carotid artery atherosclerosis. Skull and face: Calvarium and visualized facial bones appear intact, without suspicious lesions. Sinuses: Small left mastoid effusion and trace right dependent mastoid fluid. Partial opacification of left ethmoid air cells, similar to prior. IMPRESSION: 1. No CT evidence of acute intracranial process. 2. Age-appropriate cerebral cortical volume loss and chronic microvascular ischemic changes. 3. Partial resolution of right mastoid effusion and stable small left mastoid effusion and ethmoid sinus disease. Dictated by: Shyla Beaulieu M.D. on 11/15/2021 at 18:39 Approved by: Shyla Beaulieu M.D. on 11/15/2021 at 18:45
[2021-11-15 18:01] LABS: Add Manual Diff / Slide Review NO; Basophils Absolute Auto 0 /uL (0-100); Basophils Percent Auto 0.9 % (0-2); Eosinophils Absolute Auto 0 /uL (0-450); Eosinophils Percent Auto 0.3 % (2-4); Lymphocytes Absolute Auto 900 /uL (1100-4500); Lymphocytes Percent Auto 23.8 % (25-40); Mean Corpuscular HGB Conc 33.4 % (30-36); Mean Corpuscular Volume 107.5 fL (80-100); Monocytes Absolute Auto 600 /uL (0-900); Monocytes Percent Auto 16.1 % (3-14); Neutrophils Absolute Auto 2100 /uL (1500-7000); Neutrophils Percent Auto 58.9 % (50-75); Platelet Count 192 X10^3/uL (150-400); Red Blood Cell Count 1.92 X10^6/uL (4.5-5.9); Red Cell Distribution Width 20.3 % (11.6-14.8); White Blood Cell Count 3.6 X10^3/uL (4.5-11.0)
[2021-11-15 18:03] LABS: Alanine Aminotransferase 18 IU/L (<50); Albumin 3.9 g/dL (3.5-5.0); Albumin Globulin Ratio 1.1 (1.0-2.8); Alkaline Phosphatase 99 U/L (38-126); Aspartate Aminotransferase 31 IU/L (17-59); BUN Creatinine Ratio 22.6 (6-22); Bilirubin Total 0.3 mg/dL (0.2-1.3); Blood Urea Nitrogen 70 mg/dL (9-20); Calcium 9.2 mg/dL (8.4-10.2); Carbon Dioxide 21 mmol/L (22-32); Chloride 106 mmol/L (98-107); Creatine Kinase 66 U/L (55-170); Estimated Glomerular Filt Rate 19 mL/min (>60); Globulin 3.5 g/dL (1.7-4.1); Glucose 95 mg/dL (80-110); HEMOLYSIS < 15 (0-50); Lipase 56 U/L (23-300); Magnesium 2.3 mg/dL (1.6-2.3); Potassium 5.3 mmol/L (3.4-5.1); Sodium 140 mmol/L (137-145); Total Protein 7.4 g/dL (6.3-8.2)
[2021-11-15 18:08] LABS: INR 1.2 (0.9-1.3); Prothrombin Time 13.5 SECONDS (10.1-12.7)
[2021-11-15 18:10] LABS: PTT Partial Thromboplastin Tim 48 SECONDS (26.4-36.2)
[2021-11-15 18:14] LABS: Troponin I < 0.012 ng/mL (0.01-0.034)
[2021-11-15 18:20] LABS: Ethanol (ETOH) 40 mg/dL; Macrocytosis 1+; Schistocytes 1+
--- NOTE | 2021-11-15 18:27 | ED.CHESTPAIN ---
HPI - Chest Pain General Chief Complaint: Chest Pain Stated Complaint: thinks heart attack Time Seen by Provider: 11/15/21 18:27 Source: patient Mode of arrival: Ambulatory Limitations: no limitations Limitations: no limitations History of Present Illness HPI narrative: This is an 85-year-old male with history of prior right lower lobe pneumonia, lung cancer, COPD, chronic kidney disease stage IIIB, hypertension, dyslipidemia and chronic anemia who arrives for feeling unwell today patient states that he feels crummy. He has had some alcohol today. He states he hurt all over but can not really give a location of pain. He does not describe pain currently. He denies any passing out but may have felt lightheaded today. He denies any chest pain or pressure currently. No shortness of breath. He denies any abdominal pain. He denies any changes to bowel movements but has had dark stools. No dysuria, urgency or frequency. Patient is unsure if he has ever had any GI bleeds he does know that he had a blood transfusion in September but does not know why. He has a pacemaker in place, does not think he has had other surgeries he know he takes a lot of medications but is unsure what they are. PCP is jerzy Noel. Related Data Home Medications Medication Instructions Recorded Confirmed fluticasone furoate 200 1 inh INHALATION DAILY 11/03/20 11/15/21 mcg-vilanterol 25 mcg/dose inhalation powder (Breo Ellipta) lidocaine 4 % topical patch 1 patch TOPICAL DAILY PRN 11/03/20 11/15/21 (Blue-Emu Lidocaine Patch) magnesium 250 mg tablet 250 mg PO DAILY 12/02/20 11/15/21 aspirin 81 mg chewable tablet 81 mg PO DAILY tab 06/17/21 11/15/21 omeprazole 20 mg capsule,delayed 20 mg PO DAILY cap 06/17/21 11/15/21 release amlodipine 5 mg tablet 5 mg PO BID 11/15/21 11/15/21 diclofenac sodium 1 % topical gel 2 g TOPICAL QID PRN 11/15/21 11/15/21 Previous Rx's Medication Instructions Recorded multivitamin (Tab-A-Iqra) 1 tab PO DAILY #30 tab 09/14/19 thiamine HCl (vitamin B1) 100 mg 100 mg PO DAILY #30 tab 09/14/19 tablet (Vitamin B-1) fluticasone furoate 200 1 inh INHALATION DAILY #60 each 03/16/21 mcg-vilanterol 25 mcg/dose inhalation powder albuterol sulfate 90 mcg/actuation See Rx Instructions .ROUTE 03/25/21 aerosol inhaler (Ventolin HFA) .COMPLEX #18 gram umeclidinium 62.5 mcg/actuation See Rx Instructions .ROUTE 04/14/21 blister powder for inhalation .COMPLEX #30 ea (Incruse Ellipta) rosuvastatin 5 mg tablet See Rx Instructions .ROUTE 08/26/21 .COMPLEX #90 tab furosemide 20 mg tablet (Lasix) 10 mg PO QAM #3 tab 10/27/21 levofloxacin 750 mg tablet 750 mg PO DAILY 7 Days #7 tab 11/10/21 Allergies Allergy/AdvReac Type Severity Reaction Status Date / Time No Known Drug Allergies Allergy Unknown Verified 11/03/21 16:02 Review of Systems Review of Systems ROS Unobtainable: All systems reviewed & are unremarkable except as noted in HPI and below Patient History Medical History Adenocarcinoma of right lung, stage 1 (~05/10/20) Anemia Benign prostatic hyperplasia (01/29/12) BPH w urinary obs/LUTS Bradycardia Cellulitis Centrilobular emphysema (12/13/16) Cholesteatoma (09/10/12) Chronic kidney disease (CKD) stage G3a/A1, moderately decreased glomerular filtration rate (GFR) between 45-59 mL/min/1.73 square meter and albuminuria creatinine ratio less than 30 mg/g COPD (chronic obstructive pulmonary disease) DNR (do not resuscitate) Hemorrhagic cerebrovascular accident (CVA) (~2006) Hydronephrosis, left Hyperlipidemia Hypertension Lower urinary tract symptoms (LUTS) Lung cancer Macrocytic anemia (07/06/16) Mild alcohol abuse (03/26/15) Olecranon bursitis Peripheral vascular disease of foot (05/31/17) Pneumonia Primary adenocarcinoma of upper lobe of right lung Sinusitis Stenosis of left femoral artery Stroke Substance abuse Syncope Syncope and collapse (09/10/12) Tobacco use disorder, continuous (09/10/12) Transient cerebral ischemia (04/23/12) Traumatic compression fracture of seventh thoracic vertebra, sequela (10/09/16) Tubular adenoma Urinary retention Surgical History History of carpal tunnel repair (03/02/15) History of cataract removal with insertion of prosthetic lens (02/16/15) History of cataract removal with insertion of prosthetic lens (03/09/15) History of tonsillectomy Status post appendectomy Status post colonoscopy (10/06/09) Status post lobectomy of lung (~04/2020) Status post repair of hydrocele (05/22/11) Family History Brother Lung cancer Father Lung cancer Mother Migraines Social History marital status: number of children: 2 household members: spouse Smoking Status: Current every day smoker Tobacco: How many years used: 69 quit status: considering quitting alcohol intake: current caffeine: Yes Smoking Status: Current every day smoker alcohol intake frequency: 3 or more drinks per day Substance Use Type: does not use Exam Narrative Exam Narrative: GEN: well nourished, well appearing male, alert and oriented, patient has trouble giving history but has clear speech patient appears to be in mild distress. There is odor of alcohol on exam. HEENT: Atraumatic, pupils are equal round reactive to light, extraocular movements are intact, nares are clear, TMs are clear with no fluid, there is no conjunctival pallor. Throat is clear without any exudates, erythema, tonsillar enlargement or uvular deviation, no facial droop. HEART: Regular rate and rhythm without murmur, clicks, rubs. Pulses are equal in upper and lower extremities LUNGS:Lungs clear to auscultation, no wheezes, rales, crackles, chest moves symmetrically ABD:bowel sounds normal, soft, non-tender, no guarding, rebound, rigidity, no masses noted, no hepatosplenomegaly :No CVA tenderness MSCL: Non-tender, no muscle atrophy, full range of motion of upper extremities. Patient has some ecchymosis on the left shoulder but nontender. NEURO:CN 2-12 intact, sensation normal Initial Vital Signs Initial Vital Signs: Vital Signs Temperature 96.1 F L 11/15/21 17:05 Pulse Rate 60 11/15/21 17:05 Respiratory Rate 16 11/15/21 17:05 Blood Pressure 118/59 L 11/15/21 17:05 Pulse Oximetry 99 11/15/21 17:05 Course Orders Ordered: ED Orders 11/15/21 19:10 PRBC [Packed Cells] Stat Troponin I Stat Type and Screen Stat 11/15/21 19:40 COVID19 -Nasal RAPID/Pre-Proc Stat 11/15/21 19:56 UA Complete [Urinalysis and Microscopic] Stat Amlodipine Besylate (Amlodipine 5 Mg Tablet) 5 mg PO BID [facility] Aspirin (Aspirin 81 Mg Chew Tab) 81 mg PO DAILY [facility] Atorvastatin Calcium (Atorvastatin 20 Mg Tablet) 10 mg PO BEDTIME [facility] Last Admin: 11/16/21 01:48 Dose: 10 mg Documented by: ADRIAN Naloxone HCl (Naloxone 0.4 Mg/Ml Vial) 0.2 mg IV Q2MIN PRN PRN Reason: Opiate Reversal Nicotine (Nicotine 14 Patch) 14 mg TOP DAILY [facility] Last Admin: 11/16/21 01:48 Dose: Not Given Documented by: ADRIAN Ondansetron HCl (Ondansetron 4 Mg/2 Ml Inj) 4 mg IV Q6HR PRN PRN Reason: Nausea And Vomiting Thiamine HCl (Thiamine 100 Mg Tablet) 100 mg PO DAILY [facility] Discontinued Medications Furosemide (Furosemide 20 Mg/2 Ml Vial) 20 mg IV NOW ONE Stop: 11/16/21 01:31 Last Admin: 11/16/21 01:48 Dose: 20 mg Documented by: ADRIAN Sodium Chloride (Normal Saline 0.9%) 1,000 mls @ 1,000 mls/hr IV BOLUS ONE Stop: 11/15/21 19:38 Last Infusion: 11/15/21 20:57 Dose: 0 mls/hr Documented by: Admin: 11/15/21 19:19 Dose: 1,000 mls/hr Documented by: JOHN Pantoprazole Sodium (Pantoprazole 40 Mg Vial) 80 mg IV NOW ONE Stop: 11/15/21 18:40 Last Admin: 11/15/21 19:19 Dose: 80 mg Documented by: JOHN Reevaluation(s) Reevaluation #1: Spoke with patient and updated them again on findings. Was given some additional history by the that had not been available earlier. Time: 21:00 Consultations Consultation #1: COMP[employer]IVE [employer] Lelia Romano, accepts for observation for symptomatic anemia, acute on chronic kidney kidney failure. She has only give 1 unit of packed red blood cells and they will re-evaluate hemoglobin see if they need to given additional 2nd unit. We also discussed that the patient himself has difficulty giving history and his is the main historian. Time: :22 Vital Signs Vital signs: Vital Signs - 8 hr 11/15/21 19:30 11/15/21 20:00 11/15/21 20:30 Pulse Rate 62 62 63 Respiratory Rate 18 Blood Pressure Pulse Oximetry 99 100 94 11/15/21 20:31 Pulse Rate 62 Respiratory Rate 21 Blood Pressure 125/66 Pulse Oximetry 94 MDM - Chest Pain Lab Data Result diagrams: 11/16/21 00:29 11/15/21 17:20 Labs: Lab Results 11/15/21 11/15/21 11/15/21 Range/Units 17:20 17:20 17:20 WBC 3.6 L (4.5-11.0) X10^3/uL RBC 1.92 L (4.5-5.9) X10^6/uL Hgb 7.0 L (13.5-17.5) g/dL Hct 21.0 L (41-53) % MCV 107.5 H (80-100) fL MCH 36.0 H (26-34) PG MCHC 33.4 (30-36) % RDW 20.3 H (11.6-14.8) % Plt Count 192 (150-400) X10^3/uL Neut % (Auto) 58.9 (50-75) % Lymph % (Auto) 23.8 L (25-40) % [place] % (Auto) 16.1 H (3-14) % Eos % (Auto) 0.3 L (2-4) % Baso % (Auto) 0.9 (0-2) % Neut # (Auto) 2100 (1276-2734) /uL Lymph # (Auto) 900 L (0238-4309) /uL [place] # (Auto) 600 (0-900) /uL Eos # (Auto) 0 (0-450) /uL Baso # (Auto) 0 (0-100) /uL RBC Morphology See below Macrocytosis 1+ H Schistocytes 1+ H PT 13.5 H (10.1-12.7) SECONDS INR 1.2 (0.9-1.3) APTT 48 H (26.4-36.2) SECONDS Sodium 140 (137-145) mmol/L Potassium 5.3 H (3.4-5.1) mmol/L Chloride 106 (98-107) mmol/L Carbon Dioxide 21 L (22-32) mmol/L BUN 70 H (9-20) mg/dL Creatinine 3.10 H (0.66-1.25) mg/dL Estimated GFR 19 L (>60) mL/min BUN/Creatinine Ratio 22.6 H (6-22) Glucose 95 (80-110) mg/dL Calcium 9.2 (8.4-10.2) mg/dL Magnesium 2.3 (1.6-2.3) mg/dL Total Bilirubin 0.3 (0.2-1.3) mg/dL AST 31 (17-59) IU/L ALT 18 (<50) IU/L Alkaline Phosphatase 99 (38-126) U/L Total Creatine Kinase 66 (55-170) U/L CK-MB (CK-2) TNP CK-MB (CK-2) Rel Index TNP Troponin I < 0.012 (0.01-0.034) ng/mL Total Protein 7.4 (6.3-8.2) g/dL Albumin 3.9 (3.5-5.0) g/dL Globulin 3.5 (1.7-4.1) g/dL Albumin/Globulin Ratio 1.1 (1.0-2.8) Lipase 56 (23-300) U/L Urine Color Urine Appearance Urine pH (4.5-8.0) Ur Specific [place] (1.000-1.035) Urine Protein (Negative) Urine Glucose (UA) (Negative) g/dL Urine Ketones (NEGATIVE) Urine Occult Blood (Negative) Urine Nitrate (Negative) Urine Bilirubin (NEGATIVE) Urine Urobilinogen (0.2) E.U./dL Ur Leukocyte Esterase (NEGATIVE) Urine RBC (0-5/HPF) Urine WBC (0-5/HPF) Ur Squamous Epith Cells (0-5/HPF) Urine Bacteria (None) Hyaline Casts (None) Granular Casts (None) Ur Culture Indicated? Ethyl Alcohol ( - 10) mg/dL SARS-CoV-2 (PCR) (Negative) Blood Type Antibody Screen Crossmatch 11/15/21 11/15/21 11/15/21 Range/Units 17:20 19:10 19:10 WBC (4.5-11.0) X10^3/uL RBC (4.5-5.9) X10^6/uL Hgb (13.5-17.5) g/dL Hct (41-53) % MCV (80-100) fL MCH (26-34) PG MCHC (30-36) % RDW (11.6-14.8) % Plt Count (150-400) X10^3/uL Neut % (Auto) (50-75) % Lymph % (Auto) (25-40) % [place] % (Auto) (3-14) % Eos % (Auto) (2-4) % Baso % (Auto) (0-2) % Neut # (Auto) (6319-3092) /uL Lymph # (Auto) (5536-4419) /uL [place] # (Auto) (0-900) /uL Eos # (Auto) (0-450) /uL Baso # (Auto) (0-100) /uL RBC Morphology Macrocytosis Schistocytes PT (10.1-12.7) SECONDS INR (0.9-1.3) APTT (26.4-36.2) SECONDS Sodium (137-145) mmol/L Potassium (3.4-5.1) mmol/L Chloride (98-107) mmol/L Carbon Dioxide (22-32) mmol/L BUN (9-20) mg/dL Creatinine (0.66-1.25) mg/dL Estimated GFR (>60) mL/min BUN/Creatinine Ratio (6-22) Glucose (80-110) mg/dL Calcium (8.4-10.2) mg/dL Magnesium (1.6-2.3) mg/dL Total Bilirubin (0.2-1.3) mg/dL AST (17-59) IU/L ALT (<50) IU/L Alkaline Phosphatase (38-126) U/L Total Creatine Kinase (55-170) U/L CK-MB (CK-2) CK-MB (CK-2) Rel Index Troponin I < 0.012 (0.01-0.034) ng/mL Total Protein (6.3-8.2) g/dL Albumin (3.5-5.0) g/dL Globulin (1.7-4.1) g/dL Albumin/Globulin Ratio (1.0-2.8) Lipase (23-300) U/L Urine Color Urine Appearance Urine pH (4.5-8.0) Ur Specific [place] (1.000-1.035) Urine Protein (Negative) Urine Glucose (UA) (Negative) g/dL Urine Ketones (NEGATIVE) Urine Occult Blood (Negative) Urine Nitrate (Negative) Urine Bilirubin (NEGATIVE) Urine Urobilinogen (0.2) E.U./dL Ur Leukocyte Esterase (NEGATIVE) Urine RBC (0-5/HPF) Urine WBC (0-5/HPF) Ur Squamous Epith Cells (0-5/HPF) Urine Bacteria (None) Hyaline Casts (None) Granular Casts (None) Ur Culture Indicated? Ethyl Alcohol 40 H ( - 10) mg/dL SARS-CoV-2 (PCR) (Negative) Blood Type O Positive Antibody Screen Negative Crossmatch See Detail 11/15/21 11/15/21 Range/Units 19:40 19:56 WBC (4.5-11.0) X10^3/uL RBC (4.5-5.9) X10^6/uL Hgb (13.5-17.5) g/dL Hct (41-53) % MCV (80-100) fL MCH (26-34) PG MCHC (30-36) % RDW (11.6-14.8) % Plt Count (150-400) X10^3/uL Neut % (Auto) (50-75) % Lymph % (Auto) (25-40) % [place] % (Auto) (3-14) % Eos % (Auto) (2-4) % Baso % (Auto) (0-2) % Neut # (Auto) (6841-4670) /uL Lymph # (Auto) (1093-6257) /uL [place] # (Auto) (0-900) /uL Eos # (Auto) (0-450) /uL Baso # (Auto) (0-100) /uL RBC Morphology Macrocytosis Schistocytes PT (10.1-12.7) SECONDS INR (0.9-1.3) APTT (26.4-36.2) SECONDS Sodium (137-145) mmol/L Potassium (3.4-5.1) mmol/L Chloride (98-107) mmol/L Carbon Dioxide (22-32) mmol/L BUN (9-20) mg/dL Creatinine (0.66-1.25) mg/dL Estimated GFR (>60) mL/min BUN/Creatinine Ratio (6-22) Glucose (80-110) mg/dL Calcium (8.4-10.2) mg/dL Magnesium (1.6-2.3) mg/dL Total Bilirubin (0.2-1.3) mg/dL AST (17-59) IU/L ALT (<50) IU/L Alkaline Phosphatase (38-126) U/L Total Creatine Kinase (55-170) U/L CK-MB (CK-2) CK-MB (CK-2) Rel Index Troponin I (0.01-0.034) ng/mL Total Protein (6.3-8.2) g/dL Albumin (3.5-5.0) g/dL Globulin (1.7-4.1) g/dL Albumin/Globulin Ratio (1.0-2.8) Lipase (23-300) U/L Urine Color Yellow Urine Appearance Clear Urine pH 5.0 (4.5-8.0) Ur Specific [place] 1.020 (1.000-1.035) Urine Protein 1+ H (Negative) Urine Glucose (UA) Negative (Negative) g/dL Urine Ketones Negative (NEGATIVE) Urine Occult Blood Negative (Negative) Urine Nitrate Negative (Negative) Urine Bilirubin Negative (NEGATIVE) Urine Urobilinogen 0.2 (0.2) E.U./dL Ur Leukocyte Esterase Negative (NEGATIVE) Urine RBC 0-1/hpf (0-5/HPF) Urine WBC 0-1/hpf (0-5/HPF) Ur Squamous Epith Cells 0-1 /hpf (0-5/HPF) Urine Bacteria Occasional (0-1) (None) Hyaline Casts 10-30/lpf (None) Granular Casts 0-1/lpf (None) Ur Culture Indicated? Cult not indicated Ethyl Alcohol ( - 10) mg/dL SARS-CoV-2 (PCR) Negative (Negative) Blood Type Antibody Screen Crossmatch Imaging Data CT scan - head: Radiologist's Impression: Pola Chambers?(Bill)??85??M??1935 ? Allergy/Adv: No Known Drug Allergies (More??) Close Head CT (Signed) Shyla Beaulieu - 11/15/21 Chest X-Ray (Signed) Shyla Beaulieu - 11/15/21 Chest CTA (Signed) Michelle Galindo - 11/08/21 Lumbar Spine X-Ray (Signed) AnnamariaClovis khanu - 11/08/21 Knee X-Ray (Signed) AnnamariaMaryameyu - 11/08/21 Hip X-Ray (Signed) Annamaria,Maryameyu - 11/08/21 Chest X-Ray (Signed) AnnamariaMaryameyu - 11/08/21 Chest X-Ray (Signed) Abdirahman Alvarenga - 10/27/21 Telemetry Strips 09/24/21 Chest/Abdomen/Pelvis CT (Signed) Rafael Dooley - 09/24/21 Chest X-Ray (Signed) Call,Rafael - 09/24/[address] (Signed) Ricardo Meyer - 09/24/21 Hip X-Ray (Signed) Mika Glover - 09/19/[address] (Signed) Clive Hinds - 09/19/21 Bone Scan Nuclear Medicine (Signed) AnnamariaClovis khansimran - 09/15/21 Chest X-Ray (Signed) GloverMika sy - 09/07/[address] (Signed) Jace Abraham - 08/25/[address] (Signed) Adelso Vallejo - 02/28/21 Radiology Report (Cancelled) Jeet Shields - 01/20/21 Echocardiogram Ultrasound (Signed) Milton Viramontes - 01/20/21 Carotid Doppler Study (Signed) Adelso Vallejo - 01/20/21 Telemetry Strips 11/03/20 Chest X-Ray (Signed) Abdulaziz Morales - 11/03/[address] (Signed) Adelso Vallejo - 11/03/20 Lumbar Spine X-Ray (Signed) Shyla Beaulieu - 10/21/20 Chest X-Ray (Signed) Kenroy Marvin - 10/21/20 Telemetry Strips 10/08/20 Chest CTA (Signed) Simi Cassidy - 10/08/20 Chest X-Ray (Addendum) Johnson Little - 10/08/20 Chest X-Ray (Signed) Simi Cassidy - 09/27/20 Launch?Image [address] [address] [address] Scan Report Signed Patient: Pola Chambers MR#: [id number] : 1935 Acct:[id number] Age/Sex: 85 / M Date of Service: 11/15/21 Loc: ED Accession Number: [id number] ?? Procedure: CT head/brain wo con Ordering Provider: Josh Jauregui MD PROCEDURE:? CT HEAD/BRAIN WO CON ? INDICATIONS:? falls/hit head ? TECHNIQUE:? Noncontrast 4.5 mm thick angled axial sections acquired from the foramen magnum to the vertex, with coronal and sagittal reformats.? For radiation dose reduction, the following was used:? automated exposure control, adjustment of mA and/or kV according to patient size.? ? COMPARISON:? [facility], CT, CT HEAD/BRAIN WO CON, 09/19/2021, 15:50. ? FINDINGS:? Image quality:? Excellent.? ? CSF spaces:? Basal cisterns are patent.? No extra-axial fluid collections.? The ventricles are symmetric in size and shape.? ? Brain:? No intracranial bleeds or masses.? There is cerebral volume loss for age, with resultant ventricular and sulcal prominence.? There are several chronic lacunar infarcts in periventricular white matter and deep car matter without significant progression since the most recent prior study.? There are periventricular and deep white matter chronic small vessel ischemic changes.? There is intracranial internal carotid artery atherosclerosis.? ? Skull and face:? Calvarium and visualized facial bones appear intact, without suspicious lesions.? ? Sinuses:? Small left mastoid effusion and trace right dependent mastoid fluid.? Partial opacification of left ethmoid air cells, similar to prior. ? IMPRESSION:? ? 1. No CT evidence of acute intracranial process.? ? 2. Age-appropriate cerebral cortical volume loss and chronic microvascular ischemic changes.? ? 3. Partial resolution of right mastoid effusion and stable small left mastoid effusion and ethmoid sinus disease.? ? ? Dictated by: Shyla Beaulieu M.D. on 11/15/2021 at 18:39 ? ? Approved by: Shyla Beaulieu M.D. on 11/15/2021 at 18:45?? Chest x-ray: Radiologist's Impression: Pola Chambers?(Bill)??85??M??1935 ? Allergy/Adv: No Known Drug Allergies (More??) Close Head CT (Signed) Shyla Beaulieu - 11/15/21 Chest X-Ray (Signed) Shyla Beaulieu - 11/15/21 Chest CTA (Signed) MateoMichelle - 11/08/21 Lumbar Spine X-Ray (Signed) Toni Yin - 11/08/21 Knee X-Ray (Signed) AnnamariaToni khan - 11/08/21 Hip X-Ray (Signed) AnnamariaToni khan - 11/08/21 Chest X-Ray (Signed) AnnamariaToni khan - 11/08/21 Chest X-Ray (Signed) Abdirahman Alvarenga - 10/27/21 Telemetry Strips 09/24/21 Chest/Abdomen/Pelvis CT (Signed) Call,Rafael - 09/24/21 Chest X-Ray (Signed) Call,Rafael - 09/24/[address] (Signed) Ricardo Meyer - 09/24/21 Hip X-Ray (Signed) Mika Glover - 09/19/[address] (Signed) Clive Hinds - 09/19/21 Bone Scan Nuclear Medicine (Signed) Toni Yin - 09/15/21 Chest X-Ray (Signed) Mika Glover - 09/07/[address] (Signed) Jace Abraham - 08/25/[address] (Signed) Adelso Vallejo - 02/28/21 Radiology Report (Cancelled) Jeet Shields - 01/20/21 Echocardiogram Ultrasound (Signed) Milton Viramontes - 01/20/21 Carotid Doppler Study (Signed) Adelso Vallejo - 01/20/21 Telemetry Strips 11/03/20 Chest X-Ray (Signed) Abdulaziz Morales - 11/03/[address] (Signed) Adelso Vallejo - 11/03/20 Lumbar Spine X-Ray (Signed) Shyla Beaulieu - 10/21/20 Chest X-Ray (Signed) Kenroy Marvin - 10/21/20 Telemetry Strips 10/08/20 Chest CTA (Signed) Simi Cassidy - 10/08/20 Chest X-Ray (Addendum) Johnson Little - 10/08/20 Chest X-Ray (Signed) KhanhSimi - 09/27/20 Launch?[place] [address] CT Scan Report Signed Patient: Pola Chambers MR#: [id number] : 1935 Acct:[id number] Age/Sex: 85 / M Date of Service: 11/15/21 Loc: ED Accession Number: [id number] ?? Procedure: CT head/brain wo con Ordering Provider: Josh Jauregui MD PROCEDURE:? CT HEAD/BRAIN WO CON ? INDICATIONS:? falls/hit head ? TECHNIQUE:? Noncontrast 4.5 mm thick angled axial sections acquired from the foramen magnum to the vertex, with coronal and sagittal reformats.? For radiation dose reduction, the following was used:? automated exposure control, adjustment of mA and/or kV according to patient size.? ? COMPARISON:? [facility], CT, CT HEAD/BRAIN WO CON, 09/19/2021, 15:50. ? FINDINGS:? Image quality:? Excellent.? ? CSF spaces:? Basal cisterns are patent.? No extra-axial fluid collections.? The ventricles are symmetric in size and shape.? ? Brain:? No intracranial bleeds or masses.? There is cerebral volume loss for age, with resultant ventricular and sulcal prominence.? There are several chronic lacunar infarcts in periventricular white matter and deep car matter without significant progression since the most recent prior study.? There are periventricular and deep white matter chronic small vessel ischemic changes.? There is intracranial internal carotid artery atherosclerosis.? ? Skull and face:? Calvarium and visualized facial bones appear intact, without suspicious lesions.? ? Sinuses:? Small left mastoid effusion and trace right dependent mastoid fluid.? Partial opacification of left ethmoid air cells, similar to prior. ? IMPRESSION:? ? 1. No CT evidence of acute intracranial process.? ? 2. Age-appropriate cerebral cortical volume loss and chronic microvascular ischemic changes.? ? 3. Partial resolution of right mastoid effusion and stable small left mastoid effusion and ethmoid sinus disease.? ? ? Dictated by: Shyla Beaulieu M.D. on 11/15/2021 at 18:39 ? ? Approved by: Shyla Beaulieu M.D. on 11/15/2021 at 18:45?? ECG Data Attestation: I personally reviewed and interpreted this ECG as follows: Interpretation: Atrial paced rhythm, rate of 60 P are 268 QRS of 106 [address] QTC [address] elevation depression noted. EKG 2 atrial paced rhythm with prolonged AV. Rate of 60 1p are 282, QRS of 102 [address]TC [address]. No acute ST elevation depression noted. MDM Narrative Medical decision making narrative: This is an 85-year-old male who presents for feeling crummy. Triage notes that his friend states he turned car earlier. Patient appears to have acute on chronic renal failure with slight elevation in potassium, no acute EKG changes appreciated although paced rhythm. He has chronic anemia which has been slowly worsening and is now on appropriate level to transfuse. Of his bleeding he is noted have chronic anemia and his charts but is unsure how much workup he has had he is unable to give this history. Head CT and chest x-ray show no acute change in resolving pneumonia. Troponin was repeated and is negative. At this time patient kept for observation for symptomatic anemia with his lightheadedness, hemoglobin 7 in transfuse 1 unit packed red blood cells will hold 2nd unit until hospitalist can recheck his hemoglobin level post transfusion at their request. Patient was given fluids he appears to have some acute on chronic kidney failure on appears dehydrated but labs. Patient had a mild hyperkalemia 5.3 and treated with fluids. Discharge Plan Departure Patient Disposition: Admitted As Inpatient Clinical Impression: Acute on chronic kidney failure, Acute hyperkalemia, Symptomatic anemia Admit Date/Time: 11/15/21 20:38 Admit Provider: Surekha Romano
[2021-11-15] MEDS: PANTOPRAZOLE 40 MG VIAL 80 MG IV (19:19)
[2021-11-15] MEDS: SODIUM CHLORIDE 0.9% 1,000 ML 1000 ML IV (19:19)
[2021-11-15 20:01] LABS: Troponin I < 0.012 ng/mL (0.01-0.034)
[2021-11-15 20:19] LABS: Appearance Urine UA CLEAR; Bilirubin Urine UA NEGATIVE (NEGATIVE); Color Urine UA YELLOW; Glucose Urine UA NEGATIVE (Negative); Ketones Urine UA NEGATIVE (NEGATIVE); Leukocyte Esterase Urine UA NEGATIVE (NEGATIVE); Nitrite Urine UA NEGATIVE (Negative); Occult Blood Urine UA NEGATIVE (Negative); Protein Urine UA 1+ (Negative); Urobilinogen Urine UA 0.2 E.U./dL (0.2)
[2021-11-15 20:36] LABS: Bacteria Urine Occasional (0-1); Culture Indicated Urine Cult Not Indicated; Granular Casts Urine 0-1/LPF; Hyaline Casts Urine 10-30/LPF; RBC Urine 0-1/HPF (0-5/HPF); Squamous Epithelial Cell Urine 0-1 /HPF (0-5/HPF); WBC Urine 0-1/HPF (0-5/HPF)
[2021-11-15 20:38] LABS: COVID19 -Nasal RAPID Negative (Negative)
--- NOTE | 2021-11-15 22:08 | PC.NURSE ---
Provider Brad only wants one unit of PRBCs infused tonight. Was unable to cancel the initial 2 unit order. Blood bank notified. And will notify AC RN in report.
--- NOTE | 2021-11-15 22:52 | P.HP_ITS ---
History of Present Illness History of Present Illness Date Patient Seen: 11/15/21 Time Patient Seen: 22:15 Chief complaint: Symptomatic anemia Narrative: Pola Chambers is an 85 y.o. male with a 70 year pack history still smoking, stage 3 kidney disease, coronary artery disease, iron deficiency anemia, microcytic anemia, and adenocarcinoma of the right lung, was directed by his meat soaker (Mike Viramontes) after discussion with his time lock expert (Dr. Gómez), th at he present to the ED after complaints of feeling poorly. He sates he has generalized all-body pain, has dark stools he attributes taking iron, profound fatigue feels like crawling up my driveway, chronic hemoptysis. He did endorse shortness of breath due to COPD, denes chest pain, frequent urination due to BPH at night, 2-3 times, bilateral peripheral neuropathy in both feet, and endorses having dark formed stools (he attributes to iron supplementation). On presenatation to the ED, he was found to be anemic with and hemoglobin and hematocrit of 7.5/22.6 and he was ordered for 2 units prbc. He denies diarrhea or constipation. One-view chest x-ray done in the emergency department noted resolving multifocal right upper and lower lobe parenchymal opacities, minor left lung opacities whi ch are stable, and left central venous congestion compared to prior?. Head CT was negative for any acute intracranial process, it noted cortical volume loss and chronic microvascular ischemic changes and partial resolution of the right mastoid effusion stable small left mastoid effusion and ethmoid sinus disease. ? He is afebrile, blood pressure 135/68, heart rate 60, respiratory rate 60, oxygen saturation of 93% on 3 L, he weighs 76.6 kg with a BMI of 25.7. WBC is 3.6, RBC is 1.92, hemoglobin 7.2, hematocrit 21.7, platelet count 192, he has presence of macrocytosis and schistocytes, his potassium is 5.3, bicarb 21, BUN 70, creatinine 3.10, with an EGFR of 19, rest of his chemistries are within normal limits troponin is normal, lipase is normal, UA is negative for UTI, his alcohol level was elevated at 40, an COVID 19 PCR is negative. He was initiated on 2 units PRBC and the patient arrives to the floor with his 1st unit of blood running. Patient History Medical History Adenocarcinoma of right lung, stage 1 (~05/10/20) Anemia Benign prostatic hyperplasia (01/29/12) BPH w urinary obs/LUTS Bradycardia Cellulitis Centrilobular emphysema (12/13/16) Cholesteatoma (09/10/12) Chronic kidney disease (CKD) stage G3a/A1, moderately decreased glomerular filtration rate (GFR) between 45-59 mL/min/1.73 square meter and albuminuria creatinine ratio less than 30 mg/g COPD (chronic obstructive pulmonary disease) DNR (do not resuscitate) Hemorrhagic cerebrovascular accident (CVA) (~2006) Hydronephrosis, left Hyperlipidemia Hypertension Lower urinary tract symptoms (LUTS) Lung cancer Macrocytic anemia (07/06/16) Mild alcohol abuse (03/26/15) Olecranon bursitis Peripheral vascular disease of foot (05/31/17) Pneumonia Primary adenocarcinoma of upper lobe of right lung Sinusitis Stenosis of left femoral artery Stroke Substance abuse Syncope Syncope and collapse (09/10/12) Tobacco use disorder, continuous (09/10/12) Transient cerebral ischemia (04/23/12) Traumatic compression fracture of seventh thoracic vertebra, sequela (10/09/16) Tubular adenoma Urinary retention Surgical History History of carpal tunnel repair (03/02/15) History of cataract removal with insertion of prosthetic lens (02/16/15) History of cataract removal with insertion of prosthetic lens (03/09/15) History of tonsillectomy Status post appendectomy Status post colonoscopy (10/06/09) Status post lobectomy of lung (~04/2020) Status post repair of hydrocele (05/22/11) Family & Social History Family History Brother Lung cancer Father Lung cancer Mother Migraines Social History: household members spouse Safety & Behavioral: Feels Safe in Current Yes Environment Been Physically Hurt or No Threatened By a Person Tobacco & Substance use: Tobacco type cigarettes Smoking Status Current every day smoker alcohol intake current alcohol intake frequency 3 or more drinks per day Substance Use Type does not use Meds Home Medications and Allergies Home Medications Medication Instructions Recorded Confirmed Type multivitamin (Tab-A-Iqra) 1 tab PO DAILY #30 tab 09/14/19 11/15/21 Rx thiamine HCl (vitamin B1) 100 mg 100 mg PO DAILY #30 tab 09/14/19 11/15/21 Rx tablet (Vitamin B-1) fluticasone furoate 200 1 inh INHALATION DAILY 11/03/20 11/15/21 History mcg-vilanterol 25 mcg/dose inhalation powder (Breo Ellipta) lidocaine 4 % topical patch 1 patch TOPICAL DAILY PRN 11/03/20 11/15/21 History (Blue-Emu Lidocaine Patch) magnesium 250 mg tablet 250 mg PO DAILY 12/02/20 11/15/21 History fluticasone furoate 200 1 inh INHALATION DAILY #60 each 03/16/21 11/15/21 Rx mcg-vilanterol 25 mcg/dose inhalation powder albuterol sulfate 90 mcg/actuation See Rx Instructions .ROUTE 03/25/21 11/15/21 Rx aerosol inhaler (Ventolin HFA) .COMPLEX #18 gram umeclidinium 62.5 mcg/actuation See Rx Instructions .ROUTE 04/14/21 11/15/21 Rx blister powder for inhalation .COMPLEX #30 ea (Incruse Ellipta) aspirin 81 mg chewable tablet 81 mg PO DAILY tab 06/17/21 11/15/21 History omeprazole 20 mg capsule,delayed 20 mg PO DAILY cap 06/17/21 11/15/21 History release rosuvastatin 5 mg tablet See Rx Instructions .ROUTE 08/26/21 11/15/21 Rx .COMPLEX #90 tab furosemide 20 mg tablet (Lasix) 10 mg PO QAM #3 tab 10/27/21 11/15/21 Rx levofloxacin 750 mg tablet 750 mg PO DAILY 7 Days #7 tab 11/10/21 11/15/21 Rx amlodipine 5 mg tablet 5 mg PO BID 11/15/21 11/15/21 History diclofenac sodium 1 % topical gel 2 g TOPICAL QID PRN 11/15/21 11/15/21 History Allergies Allergy/AdvReac Type Severity Reaction Status Date / Time No Known Drug Allergies Allergy Unknown Verified 11/03/21 16:02 Review of Systems Review of Systems ROS: Yes All systems reviewed with the patient and are negative except as otherwise documented Exam Vital Signs (past 8 hours): - 11/15/21 17:05 11/15/21 17:26 11/15/21 17:27 Temperature 96.1 F L Pulse Rate 60 60 60 Respiratory Rate 16 Blood Pressure 118/59 L 115/59 L Pulse Oximetry 99 93 92 11/15/21 17:30 11/15/21 18:00 11/15/21 18:30 Temperature Pulse Rate 62 61 62 Respiratory Rate 14 17 16 Blood Pressure 113/62 124/59 L Pulse Oximetry 92 92 93 11/15/21 19:00 11/15/21 19:30 11/15/21 20:00 Temperature Pulse Rate 62 62 62 Respiratory Rate 18 Blood Pressure Pulse Oximetry 92 99 100 11/15/21 20:30 11/15/21 20:31 11/15/21 20:46 Temperature 97.8 F Pulse Rate 63 62 60 Respiratory Rate 21 24 Blood Pressure 125/66 125/66 Pulse Oximetry 94 94 11/15/21 20:58 11/15/21 21:00 11/15/21 21:08 Temperature Pulse Rate 60 60 Respiratory Rate 16 17 Blood Pressure 120/64 117/60 124/68 Pulse Oximetry 91 96 11/15/21 21:09 11/15/21 21:15 11/15/21 21:30 Temperature 96.5 F L Pulse Rate 60 60 60 Respiratory Rate 15 14 15 Blood Pressure 124/68 124/69 123/67 Pulse Oximetry 97 94 11/15/21 22:00 11/15/21 22:30 Temperature Pulse Rate 64 63 Respiratory Rate 21 14 Blood Pressure 147/66 H 135/65 Pulse Oximetry 96 98 Oxygen Delivery Method Room Air Narrative Exam Narrative: Gen: Alert, oriented, chronically ill-appearing 85 y.o. male, NAD HEENT: normocephalic, atraumatic, conjunctiva clear, sclera non-icteric, oral mucosa pink and moist Neck: supple, full ROM, no JVD, trachea is midline Resp: Lungs w/faint rales, non-labored breathing CV: RRR, no murmur or rubs Abd: soft, non-tender, normoactive BTs Skin: Multiple bruisies and ecchymosis on of his upper lower extremities, no lesions or rashes, dry and intact Neuro: Alert and oriented X 4 w/no focal deficits. Speech clear and coherent. Extremities: moves all 4 extremities, is ambulatory, negative Kaia?s sign Psyche: normal mood and affect. Objective Labs Result Diagrams: 11/16/21 00:29 11/15/21 17:20 Labs: Laboratory Results - last 24 hr 11/15/21 11/15/21 11/15/21 17:20 17:20 17:20 WBC 3.6 L RBC 1.92 L Hgb 7.0 L Hct 21.0 L MCV 107.5 H MCH 36.0 H MCHC 33.4 RDW 20.3 H Plt Count 192 Neut % (Auto) 58.9 Lymph % (Auto) 23.8 L [place] % (Auto) 16.1 H Eos % (Auto) 0.3 L Baso % (Auto) 0.9 Neut # (Auto) 2100 Lymph # (Auto) 900 L [place] # (Auto) 600 Eos # (Auto) 0 Baso # (Auto) 0 RBC Morphology See below Macrocytosis 1+ H Schistocytes 1+ H PT 13.5 H INR 1.2 APTT 48 H Sodium 140 Potassium 5.3 H Chloride 106 Carbon Dioxide 21 L BUN 70 H Creatinine 3.10 H Estimated GFR 19 L BUN/Creatinine Ratio 22.6 H Glucose 95 Calcium 9.2 Magnesium 2.3 Total Bilirubin 0.3 AST 31 ALT 18 Alkaline Phosphatase 99 Total Creatine Kinase 66 CK-MB (CK-2) TNP CK-MB (CK-2) Rel Index TNP Troponin I < 0.012 Total Protein 7.4 Albumin 3.9 Globulin 3.5 Albumin/Globulin Ratio 1.1 Lipase 56 Urine Color Urine Appearance Urine pH Ur Specific Barton Urine Protein Urine Glucose (UA) Urine Ketones Urine Occult Blood Urine Nitrate Urine Bilirubin Urine Urobilinogen Ur Leukocyte Esterase Urine RBC Urine WBC Ur Squamous Epith Cells Urine Bacteria Hyaline Casts Granular Casts Ur Culture Indicated? Ethyl Alcohol SARS-CoV-2 (PCR) Blood Type Antibody Screen Crossmatch 11/15/21 11/15/21 11/15/21 17:20 19:10 19:10 WBC RBC Hgb Hct MCV MCH MCHC RDW Plt Count Neut % (Auto) Lymph % (Auto) [place] % (Auto) Eos % (Auto) Baso % (Auto) Neut # (Auto) Lymph # (Auto) [place] # (Auto) Eos # (Auto) Baso # (Auto) RBC Morphology Macrocytosis Schistocytes PT INR APTT Sodium Potassium Chloride Carbon Dioxide BUN Creatinine Estimated GFR BUN/Creatinine Ratio Glucose Calcium Magnesium Total Bilirubin AST ALT Alkaline Phosphatase Total Creatine Kinase CK-MB (CK-2) CK-MB (CK-2) Rel Index Troponin I < 0.012 Total Protein Albumin Globulin Albumin/Globulin Ratio Lipase Urine Color Urine Appearance Urine pH Ur Specific Barton Urine Protein Urine Glucose (UA) Urine Ketones Urine Occult Blood Urine Nitrate Urine Bilirubin Urine Urobilinogen Ur Leukocyte Esterase Urine RBC Urine WBC Ur Squamous Epith Cells Urine Bacteria Hyaline Casts Granular Casts Ur Culture Indicated? Ethyl Alcohol 40 H SARS-CoV-2 (PCR) Blood Type O Positive Antibody Screen Negative Crossmatch See Detail 11/15/21 11/15/21 19:40 19:56 WBC RBC Hgb Hct MCV MCH MCHC RDW Plt Count Neut % (Auto) Lymph % (Auto) [place] % (Auto) Eos % (Auto) Baso % (Auto) Neut # (Auto) Lymph # (Auto) [place] # (Auto) Eos # (Auto) Baso # (Auto) RBC Morphology Macrocytosis Schistocytes PT INR APTT Sodium Potassium Chloride Carbon Dioxide BUN Creatinine Estimated GFR BUN/Creatinine Ratio Glucose Calcium Magnesium Total Bilirubin AST ALT Alkaline Phosphatase Total Creatine Kinase CK-MB (CK-2) CK-MB (CK-2) Rel Index Troponin I Total Protein Albumin Globulin Albumin/Globulin Ratio Lipase Urine Color Yellow Urine Appearance Clear Urine pH 5.0 Ur Specific Barton 1.020 Urine Protein 1+ H Urine Glucose (UA) Negative Urine Ketones Negative Urine Occult Blood Negative Urine Nitrate Negative Urine Bilirubin Negative Urine Urobilinogen 0.2 Ur Leukocyte Esterase Negative Urine RBC 0-1/hpf Urine WBC 0-1/hpf Ur Squamous Epith Cells 0-1 /hpf Urine Bacteria Occasional (0-1) Hyaline Casts 10-30/lpf Granular Casts 0-1/lpf Ur Culture Indicated? Cult not indicated Ethyl Alcohol SARS-CoV-2 (PCR) Negative Blood Type Antibody Screen Crossmatch Assessment & Plan Assessment & Plan narrative: Pola Chambers is admitted for symptomatic anemia and bleeding of unknown source 1. Symptomatic anemia * He is receiving a second unit of PRBC as his H and H actually dropped after the first unit * He became volume overloaded after the first unit and was written for IV lasix 20 mg after completion of the first unit transfused * If no improvement in his H and H, should request surgical consult, if upper GI source, consider varices. 2. Acute on chronic kidney injury * possibly responsible for elevated bp * renal ultrasound * consult with Dr. Gómez in the am to inform of admission and renal us results 3. Essential hypertension, chronic * continue home dose of amlodipine 5 mg daily 4. CAD, chronic * continue home dose of aspirin 81 mg po daily * Continue home dose of rosuvastatin 5 mg po daily VTE Prophylaxis: Wells risk score 1,5 [X] Bilateral SCDs Pharmacological VTE prophylaxis contraindicated in the setting of suspected active bleeding Patient is admitted to the inpatient service due to the severity of disease, risks of further disease progression and this stay is expected to exceed 2 midnights. FEN: IV fluids: saline lock, diet: clears, labs: CBC, C/BMP, liver enzymes, Mag, PT/INR Consultants None Dispo: unknown at this time Code status: DNR/DNI as discussed with the patient who identifies Arely as his surrogate and POA. [X] I have utilized all available immediate resources to obtain, update, or review of the patient's current medications COVID-19 COVID-19 status: Negative Result date/Date tested (Pos, Neg/Pending): 11/15/21 Time Spent With Patient Critical Care time: I spent a total of [] minutes of critical care time on this patient's care today; this time is exclusive of procedural time. Scores Wells' Criteria for PE Clinical signs and symptoms of DVT: No PE is #1 Dx or equally likely: No Heart rate > 100: No Immobilization at least 3 days or surg in previous 4 weeks: Yes History of PE or DVT: No Hemoptysis: No Malignancy w/Treatment within 6 months or palliative: No Wells' PE Score total: 1.5 Quality VTE Deep Vein Thrombosis/Pulmonary Embolism Present on Admission: No MIPS - Admit I confirm the patient?s Advance Care Plan is present, Code status is documented, Surrogate decision maker is in patient?s record [If Yes, STOP here]: Yes MIPS - DC The patient has current or prior documentation of left ventricular ejection fraction (LVEF) less than 40%, or moderate or severely depressed left ventricular systolic function.: No
[2021-11-16] VITALS (14 sets, daily range): BP systolic 111–152; BP diastolic 62–82; PULSE 60–74; RESP 16–19; TEMP 35.4–35.8; O2SAT 95–99
--- NOTE | 2021-11-16 | DI.US.S_ITS ---
PROCEDURE: US RENAL COMPLETE INDICATIONS: CHRONIC KIDNEY INJURY TECHNIQUE: Real-time scanning was performed of the kidneys and bladder, with image documentation. COMPARISON: [facility], CT, CT ANGIO CHEST PE PROTOCOL, 10/08/2020, 19:04. [facility], CT, CHEST/ABD/PEL WITH CONTRAST, 04/04/2013, 17:51. [facility], RG, CT IVP, 09/22/2004, 11:20. [facility], CT, CT CHEST WITHOUT CONTRAST, 05/10/2020, 23:51. [facility], US, US RENAL COMPLETE, 08/18/2020, 10:03. FINDINGS: Kidneys: Kidneys are normal in size. Right kidney measures 10.6 cm long; left kidney measures 11.3 cm long. Right renal cortical thickness is 1.4 cm; left renal cortical thickness is 1.4 cm. Renal cortical echotexture is normal. No hydronephrosis or nephrolithiasis. No suspicious solid mass lesions. There are bilateral renal cysts. The largest left renal cyst measures 4.7 by 6.0 cm in the transverse plane. This is likely similar in size to the comparison CT dated October 08, 2020. Bladder: Pre-void bladder volume is 857 mL. Post-void residual is 313 mL. Pre-void images demonstrate no intraluminal masses or stones. On pre-void images, bilateral ureteral jets are noted with color Doppler interrogation. (Of note, ureteral jets may not be detectable in up to 25% of cases due to insufficient differences in specific gravity between ureteral and bladder urine). Miscellaneous: No free pelvic fluid. IMPRESSION: 1. No hydronephrosis. 2. Large postvoid residual suggesting bladder outlet obstruction. Dictated by: Michelle Galindo M.D. on 11/16/2021 at 12:48 Approved by: Michelle Galindo M.D. on 11/16/2021 at 12:55
[2021-11-16 00:58] LABS: Hematocrit 21.7 % (41-53); Hemoglobin 7.2 g/dL (13.5-17.5)
[2021-11-16] MEDS: FUROSEMIDE 20 MG/2 ML VIAL IV (01:48)
[2021-11-16] MEDS: ATORVASTATIN 20 MG TABLET 10 MG PO ×2 (01:48→20:42)
[2021-11-16 07:38] LABS: Alanine Aminotransferase 18 IU/L (<50); Albumin 3.8 g/dL (3.5-5.0); Alkaline Phosphatase 105 U/L (38-126); Aspartate Aminotransferase 31 IU/L (17-59); BUN Creatinine Ratio 24.5 (6-22); Bilirubin Total 0.8 mg/dL (0.2-1.3); Bilirubin Unconjugated 0.9 mg/dL (0.0-1.1); Blood Urea Nitrogen 65 mg/dL (9-20); Calcium 9.3 mg/dL (8.4-10.2); Carbon Dioxide 27 mmol/L (22-32); Chloride 107 mmol/L (98-107); Estimated Glomerular Filt Rate 23 mL/min (>60); Globulin 3.7 g/dL (1.7-4.1); Glucose 60 mg/dL (80-110); HEMOLYSIS < 15 (0-50); Magnesium 2.3 mg/dL (1.6-2.3); Potassium 5.1 mmol/L (3.4-5.1); Sodium 141 mmol/L (137-145); Total Protein 7.5 g/dL (6.3-8.2)
[2021-11-16 07:42] LABS: Basophils Absolute Auto 0 /uL (0-100); Basophils Percent Auto 1.6 % (0-2); Eosinophils Absolute Auto 0 /uL (0-450); Eosinophils Percent Auto 0.9 % (2-4); Hematocrit 28.8 % (41-53); Hemoglobin 9.7 g/dL (13.5-17.5); Lymphocytes Absolute Auto 900 /uL (1100-4500); Lymphocytes Percent Auto 38.1 % (25-40); Mean Corpuscular HGB Conc 33.6 % (30-36); Mean Corpuscular Hemoglobin 32.8 PG (26-34); Mean Corpuscular Volume 97.6 fL (80-100); Monocytes Absolute Auto 700 /uL (0-900); Monocytes Percent Auto 26.8 % (3-14); Neutrophils Absolute Auto 800 /uL (1500-7000); Neutrophils Percent Auto 32.6 % (50-75); Platelet Count 189 X10^3/uL (150-400); Red Blood Cell Count 2.95 X10^6/uL (4.5-5.9); Red Cell Distribution Width 24.8 % (11.6-14.8); White Blood Cell Count 2.5 X10^3/uL (4.5-11.0)
[2021-11-16 07:43] LABS: Add Manual Diff / Slide Review SLIDE REVIEW
[2021-11-16 08:04] LABS: Macrocytosis 1+
[2021-11-16 08:05] LABS: Anisocytosis 3+
[2021-11-16] MEDS: THIAMINE 100 MG TABLET PO (09:39)
[2021-11-16] MEDS: AMLODIPINE 5 MG TABLET PO ×2 (09:39→20:42)
[2021-11-16] MEDS: ASPIRIN 81 MG CHEW TAB PO (09:39)
[2021-11-16] MEDS: NICOTINE 14 PATCH 14 MG TOP (09:40)
--- NOTE | 2021-11-16 13:16 | CM.IDA ---
DCP Assessment Patient is 85 y/o male who presents to due to concern for acute kidney failure. Patient has [employer] insurance. Patient's PCP is Valarie Noel and Oncologist is Dr. Rush at [facility]. Patient has upcoming PCP appt on 12/15/21. Patient has hx of CVA, COPD, home O2 and lung cancer. Patient resides at home with spouse. DENTIST ATTENDANT enter room and meets with spouse and patient. Patient is A/Ox4 and denies any needs from DCP. Patient and spouse indicate patient's independence with ADLs. Patient and spouse hopeful for patient's d/c today pending patient's renal ultrasound results from this morning. Plan: Patient to d/c to home with spouse when medically clear, no needs from DCP at this time. YING Rosales Discharge Planning/Care Management CM Discharge Assessment Start: 11/16/21 13:14 Freq: Status: Active Protocol: Document 11/16/21 13:14 LN (Rec: 11/16/21 13:16 LN [id number]) Discharge Planning Assessment Assigned Customer Service Coordinator YING Matthews Advance Directives? No Advance Directives on File No History Provided By Patient,Significant Other, Medical Record Has Patient been admitted in last 30 Yes days? Comment 11/09/21-11/10/21 Prior Living Arrangements House Household Members spouse Type of transporation used prior to Drives own vehicle admit Independent with ADL's Yes Is patient alert and oriented? Yes Barriers to Discharge No Discharge Plan Home Transportation Arrangement Spouse Referrals Initiated None needed Review Status In Process Please Provide Date Initial DC 11/16/21 Assessment Was Performed
--- NOTE | 2021-11-16 17:27 | PM.PN.1 ---
Subjective Subjective Date Patient Seen: 11/16/21 Interval history: Mr. 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 The patient reports feeling well this morning.?He denies complaints. Exam Vital Signs (past 8 hours): - 11/16/21 10:00 11/16/21 13:00 11/16/21 16:00 Temperature 96.0 F L Pulse Rate 74 Respiratory Rate 19 Blood Pressure 111/62 Pulse Oximetry 97 97 98 11/16/21 16:49 Temperature 96.4 F L Pulse Rate 60 Respiratory Rate 16 Blood Pressure 149/82 H Pulse Oximetry 99 Oxygen Delivery Method Nasal Cannula Oxygen Flow Rate 3 Narrative Exam Narrative: General:? Patient is well developed and well nourished, in no distress at this time. HEENT:? extraocular muscles intact, oral pharynx is clear and mucous membranes are moist. Neck: supple and symmetric, trachea is midline, no cervical adenopathy. Negative for JVD Chest:? Normal AP diameter and contour without kyphoscoliosis, no tachypnea, equal chest rise bilaterally. Lungs:? Diminished breath sounds at the bilateral lung bases but no obvious wheezing, rhonchi, or rales Cardio:?RRR with a 3/6 systolic crescendo decrescendo murmur Abdomen: S NT ND. Musculoskeletal:? Muscle strength and tone are equal within normal limits, no deformity. Extremities: No edema. Neuro:? Alert and orientated x3,? sensation to touch intact in all extremities, no gross deficits noted of cranial nerves. Psych:? Patient has a well-kept appearance, appropriate affect, mental status attitude thought context and judgment are appropriate for age. Objective Labs Result Diagrams: 11/16/21 07:05 11/16/21 07:05 Labs: Laboratory Results - last 24 hr 11/15/21 11/15/21 11/15/21 17:20 17:20 17:20 WBC 3.6 L RBC 1.92 L Hgb 7.0 L Hct 21.0 L MCV 107.5 H MCH 36.0 H MCHC 33.4 RDW 20.3 H Plt Count 192 Neut % (Auto) 58.9 Lymph % (Auto) 23.8 L Norton % (Auto) 16.1 H Eos % (Auto) 0.3 L Baso % (Auto) 0.9 Neut # (Auto) 2100 Lymph # (Auto) 900 L Norton # (Auto) 600 Eos # (Auto) 0 Baso # (Auto) 0 RBC Morphology See below Anisocytosis Macrocytosis 1+ H Schistocytes 1+ H PT 13.5 H INR 1.2 APTT 48 H Sodium 140 Potassium 5.3 H Chloride 106 Carbon Dioxide 21 L BUN 70 H Creatinine 3.10 H Estimated GFR 19 L BUN/Creatinine Ratio 22.6 H Glucose 95 Calcium 9.2 Magnesium 2.3 Total Bilirubin 0.3 Conjugated Bilirubin Unconjugated Bilirubin AST 31 ALT 18 Alkaline Phosphatase 99 Total Creatine Kinase 66 CK-MB (CK-2) TNP CK-MB (CK-2) Rel Index TNP Troponin I < 0.012 Total Protein 7.4 Albumin 3.9 Globulin 3.5 Albumin/Globulin Ratio 1.1 Lipase 56 Urine Color Urine Appearance Urine pH Ur Specific [place] Urine Protein Urine Glucose (UA) Urine Ketones Urine Occult Blood Urine Nitrate Urine Bilirubin Urine Urobilinogen Ur Leukocyte Esterase Urine RBC Urine WBC Ur Squamous Epith Cells Urine Bacteria Hyaline Casts Granular Casts Ur Culture Indicated? Ethyl Alcohol SARS-CoV-2 (PCR) Blood Type Antibody Screen Crossmatch 11/15/21 11/15/21 11/15/21 17:20 19:10 19:10 WBC RBC Hgb Hct MCV MCH MCHC RDW Plt Count Neut % (Auto) Lymph % (Auto) Norton % (Auto) Eos % (Auto) Baso % (Auto) Neut # (Auto) Lymph # (Auto) Norton # (Auto) Eos # (Auto) Baso # (Auto) RBC Morphology Anisocytosis Macrocytosis Schistocytes PT INR APTT Sodium Potassium Chloride Carbon Dioxide BUN Creatinine Estimated GFR BUN/Creatinine Ratio Glucose Calcium Magnesium Total Bilirubin Conjugated Bilirubin Unconjugated Bilirubin AST ALT Alkaline Phosphatase Total Creatine Kinase CK-MB (CK-2) CK-MB (CK-2) Rel Index Troponin I < 0.012 Total Protein Albumin Globulin Albumin/Globulin Ratio Lipase Urine Color Urine Appearance Urine pH Ur Specific [place] Urine Protein Urine Glucose (UA) Urine Ketones Urine Occult Blood Urine Nitrate Urine Bilirubin Urine Urobilinogen Ur Leukocyte Esterase Urine RBC Urine WBC Ur Squamous Epith Cells Urine Bacteria Hyaline Casts Granular Casts Ur Culture Indicated? Ethyl Alcohol 40 H SARS-CoV-2 (PCR) Blood Type O Positive Antibody Screen Negative Crossmatch See Detail 11/15/21 11/15/21 11/16/21 19:40 19:56 00:29 WBC RBC Hgb 7.2 L Hct 21.7 L MCV MCH MCHC RDW Plt Count Neut % (Auto) Lymph % (Auto) Norton % (Auto) Eos % (Auto) Baso % (Auto) Neut # (Auto) Lymph # (Auto) Norton # (Auto) Eos # (Auto) Baso # (Auto) RBC Morphology Anisocytosis Macrocytosis Schistocytes PT INR APTT Sodium Potassium Chloride Carbon Dioxide BUN Creatinine Estimated GFR BUN/Creatinine Ratio Glucose Calcium Magnesium Total Bilirubin Conjugated Bilirubin Unconjugated Bilirubin AST ALT Alkaline Phosphatase Total Creatine Kinase CK-MB (CK-2) CK-MB (CK-2) Rel Index Troponin I Total Protein Albumin Globulin Albumin/Globulin Ratio Lipase Urine Color Yellow Urine Appearance Clear Urine pH 5.0 Ur Specific [place] 1.020 Urine Protein 1+ H Urine Glucose (UA) Negative Urine Ketones Negative Urine Occult Blood Negative Urine Nitrate Negative Urine Bilirubin Negative Urine Urobilinogen 0.2 Ur Leukocyte Esterase Negative Urine RBC 0-1/hpf Urine WBC 0-1/hpf Ur Squamous Epith Cells 0-1 /hpf Urine Bacteria Occasional (0-1) Hyaline Casts 10-30/lpf Granular Casts 0-1/lpf Ur Culture Indicated? Cult not indicated Ethyl Alcohol SARS-CoV-2 (PCR) Negative Blood Type Antibody Screen Crossmatch 11/16/21 11/16/21 07:05 07:05 WBC 2.5 L RBC 2.95 L Hgb 9.7 L Hct 28.8 L MCV 97.6 D MCH 32.8 MCHC 33.6 RDW 24.8 H Plt Count 189 Neut % (Auto) 32.6 L D Lymph % (Auto) 38.1 Norton % (Auto) 26.8 H Eos % (Auto) 0.9 L Baso % (Auto) 1.6 Neut # (Auto) 800 L Lymph # (Auto) 900 L Norton # (Auto) 700 Eos # (Auto) 0 Baso # (Auto) 0 RBC Morphology See below Anisocytosis 3+ H D Macrocytosis 1+ H Schistocytes PT INR APTT Sodium 141 Potassium 5.1 Chloride 107 Carbon Dioxide 27 BUN 65 H Creatinine 2.65 H Estimated GFR 23 L BUN/Creatinine Ratio 24.5 H Glucose 60 L Calcium 9.3 Magnesium 2.3 Total Bilirubin 0.8 Conjugated Bilirubin 0.0 Unconjugated Bilirubin 0.9 AST 31 ALT 18 Alkaline Phosphatase 105 Total Creatine Kinase CK-MB (CK-2) CK-MB (CK-2) Rel Index Troponin I Total Protein 7.5 Albumin 3.8 Globulin 3.7 Albumin/Globulin Ratio 1.0 Lipase Urine Color Urine Appearance Urine pH Ur Specific [place] Urine Protein Urine Glucose (UA) Urine Ketones Urine Occult Blood Urine Nitrate Urine Bilirubin Urine Urobilinogen Ur Leukocyte Esterase Urine RBC Urine WBC Ur Squamous Epith Cells Urine Bacteria Hyaline Casts Granular Casts Ur Culture Indicated? Ethyl Alcohol SARS-CoV-2 (PCR) Blood Type Antibody Screen Crossmatch PENDING SALE TO [facility] Medical History Adenocarcinoma of right lung, stage 1 (~05/10/20) Anemia Benign prostatic hyperplasia (01/29/12) BPH w urinary obs/LUTS Bradycardia Cellulitis Centrilobular emphysema (12/13/16) Cholesteatoma (09/10/12) Chronic kidney disease (CKD) stage G3a/A1, moderately decreased glomerular filtration rate (GFR) between 45-59 mL/min/1.73 square meter and albuminuria creatinine ratio less than 30 mg/g COPD (chronic obstructive pulmonary disease) DNR (do not resuscitate) Hemorrhagic cerebrovascular accident (CVA) (~2006) Hydronephrosis, left Hyperlipidemia Hypertension Lower urinary tract symptoms (LUTS) Lung cancer Macrocytic anemia (07/06/16) Mild alcohol abuse (03/26/15) Olecranon bursitis Peripheral vascular disease of foot (05/31/17) Pneumonia Primary adenocarcinoma of upper lobe of right lung Sinusitis Stenosis of left femoral artery Stroke Substance abuse Syncope Syncope and collapse (09/10/12) Tobacco use disorder, continuous (09/10/12) Transient cerebral ischemia (04/23/12) Traumatic compression fracture of seventh thoracic vertebra, sequela (10/09/16) Tubular adenoma Urinary retention Surgical History History of carpal tunnel repair (03/02/15) History of cataract removal with insertion of prosthetic lens (02/16/15) History of cataract removal with insertion of prosthetic lens (03/09/15) History of tonsillectomy Status post appendectomy Status post colonoscopy (10/06/09) Status post lobectomy of lung (~04/2020) Status post repair of hydrocele (05/22/11) Family History Brother Lung cancer Father Lung cancer Mother Migraines Social History marital status: number of children: 2 household members: spouse Smoking Status: Current every day smoker Tobacco: How many years used: 69 quit status: considering quitting alcohol intake: current caffeine: Yes Assessment & Plan Assessment & Plan narrative: Mr. 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 1. Symptomatic chronic anemia -Hg of 7 in the ER. Has responded to 2U PRBC transfusion appropriately and hg is now 9.7. Will continue to trend. He has had no bowel movements but reports dark stools on oral iron. -He became volume overloaded after the first unit and was written for IV lasix 20 mg after completion of the first unit transfused -consider endoscopy if bleeding continues. This anemia has been present for quite some time. Consider PPI but no obvious GI bleeding currently. 2. Acute on chronic kidney failure, chronic stage III. -renal ultrasound with high PVR. will continue to monitor. consider leija. Creatinine of >3 on admission, improved to 2.6 today. -likely secondary to anemia, improved today. 3. Essential hypertension, chronic -continue home dose of amlodipine 5 mg daily 4. CAD, chronic -continue home dose of aspirin 81 mg po daily -Continue home dose of rosuvastatin 5 mg po daily 5. COPD with chronic respiratory failure with hypoxia. - remains on near normal amounts of supplemental o2 - no current indication of COPD exacerbation. Dispo: discharge home, possibly as soon as tomorrow. Code status: DNR/DNI as discussed with the patient who identifies Arely as? his surrogate and POA. [X] I have utilized all available immediate resources to obtain, update, or review of the patient's current medications Time Spent With Patient Critical Care time: I spent a total of [] minutes of critical care time on this patient's care today; this time is exclusive of procedural time. Quality VTE Deep Vein Thrombosis/Pulmonary Embolism Present on Admission: No
[2021-11-16] MEDS: SODIUM CHLORIDE 0.9% FLUSH 10 ML IV (20:42)
--- NOTE | 2021-11-16 21:15 | PC.NURSE ---
Patient is alert and oriented. Breath sounds with expiratory rhonchi throughout. SOB w/exertion but states that is his normal and unchanged. On oxygen at 3L/min per NC with sat of 97%. HRR w/telemetry reading of SR w/1st degree AVB. BP elevated at 140/71 and does trend high. Denies nausea. BT present and is passing flatus. Denies dysuria but states he has urinary urgency and frequency; has retention per renal US done earlier today. Is able to move himself in bed. Out of bed with walker and 1 assist. States he has tingling in bilateral feet which is new; pedal pulses +. Does have 1+ left foot/ankle edema. Wearing bilateral calf SCD's. Denies pain. Fall risk score is high and bed alarm is activated.
[2021-11-17 00:54] VITALS: BP 144/70; PULSE 69; RESP 19; TEMP 36; O2SAT 98
[2021-11-17 03:45] VITALS: O2SAT 96
[2021-11-17 04:27] VITALS: BP 148/73; PULSE 67; RESP 18; TEMP 36.6; O2SAT 96
[2021-11-17 04:30] VITALS: O2SAT 96
--- NOTE | 2021-11-17 05:20 | PC.NURSE ---
Assumed care of patient at 0400. Patient easily wakes up to name, oriented X3. Denies pain. RR even non labored on 3L, O2 Sats 96%, SR 60s.
[2021-11-17 06:49] LABS: Add Manual Diff / Slide Review NO; Basophils Absolute Auto 0 /uL (0-100); Basophils Percent Auto 1.4 % (0-2); Eosinophils Absolute Auto 0 /uL (0-450); Eosinophils Percent Auto 0.8 % (2-4); Hematocrit 28.8 % (41-53); Hemoglobin 9.8 g/dL (13.5-17.5); Lymphocytes Absolute Auto 1000 /uL (1100-4500); Lymphocytes Percent Auto 39.3 % (25-40); Mean Corpuscular HGB Conc 33.8 % (30-36); Mean Corpuscular Hemoglobin 32.9 PG (26-34); Mean Corpuscular Volume 97.2 fL (80-100); Monocytes Absolute Auto 700 /uL (0-900); Monocytes Percent Auto 25.6 % (3-14); Neutrophils Absolute Auto 800 /uL (1500-7000); Neutrophils Percent Auto 32.9 % (50-75); Platelet Count 172 X10^3/uL (150-400); Red Blood Cell Count 2.97 X10^6/uL (4.5-5.9); Red Cell Distribution Width 24.4 % (11.6-14.8); White Blood Cell Count 2.6 X10^3/uL (4.5-11.0)
[2021-11-17 06:57] LABS: Alanine Aminotransferase 18 IU/L (<50); Albumin 3.6 g/dL (3.5-5.0); Alkaline Phosphatase 101 U/L (38-126); Aspartate Aminotransferase 30 IU/L (17-59); BUN Creatinine Ratio 26.1 (6-22); Bilirubin Total 0.4 mg/dL (0.2-1.3); Bilirubin Unconjugated 0.5 mg/dL (0.0-1.1); Blood Urea Nitrogen 57 mg/dL (9-20); Calcium 9.3 mg/dL (8.4-10.2); Carbon Dioxide 27 mmol/L (22-32); Chloride 106 mmol/L (98-107); Estimated Glomerular Filt Rate 29 mL/min (>60); Globulin 3.5 g/dL (1.7-4.1); Glucose 67 mg/dL (80-110); HEMOLYSIS < 15 (0-50); Magnesium 2.1 mg/dL (1.6-2.3); Potassium 4.8 mmol/L (3.4-5.1); Sodium 139 mmol/L (137-145); Total Protein 7.1 g/dL (6.3-8.2)
[2021-11-17 07:11] LABS: Anisocytosis 2+
--- NOTE | 2021-11-17 09:03 | PM.DS.1 ---
History of Present Illness History of Present Illness Date Patient Seen: 11/17/21 Chief complaint: Symptomatic anemia Narrative: EDUARDO Murillo: Pola Chambers is an 85 y.o. male with a 70 year pack history still smoking, stage 3 kidney disease, coronary artery disease, iron deficiency anemia, microcytic anemia, and adenocarcinoma of the right lung, was directed by his product manager (Mike Viramontes) after discussion with his blocking machine operator second (Dr. Gómez), that he present to the ED after complaints of feeling poorly. He sates he has generalized all-body pain, has dark stools he attributes taking iron, profound fatigue feels like crawling up my driveway, chronic hemoptysis.? He did endorse shortness of breath due to COPD, denes chest pain, frequent urination due to BPH at night, 2-3 times, bilateral peripheral neuropathy in both feet, and endorses having dark formed stools (he attributes to iron supplementation). On presenatation to the ED, he was found to be anemic with and hemoglobin and hematocrit of 7.5/22.6 and he was ordered for 2 units prbc. He denies diarrhea or constipation. One-view chest x-ray done in the emergency department noted resolving multifocal right upper and lower lobe parenchymal opacities, minor left lung opacities which are stable, and left central venous congestion compared to prior?.? Head CT was negative for any acute intracranial process, it noted cortical volume loss and chronic microvascular ischemic changes and partial resolution of the right mastoid effusion stable small left mastoid effusion and ethmoid sinus disease. ?? He is afebrile, blood pressure 135/68, heart rate 60, respiratory rate 60, oxygen saturation of 93% on 3 L, he weighs 76.6 kg with a BMI of 25.7.? WBC is 3.6, RBC is 1.92, hemoglobin 7.2, hematocrit 21.7, platelet count 192, he has presence of macrocytosis and schistocytes, his potassium is 5.3, bicarb 21, BUN 70, creatinine 3.10, with an EGFR of 19, rest of his chemistries are within normal limits troponin is normal, lipase is normal, UA is negative for UTI, his alcohol level was elevated at 40, an COVID 19 PCR is negative.? He was initiated on 2 units PRBC and the patient arrives to the floor with his 1st unit of blood running. Discharge Providers Provider Date of admission: 11/15/21 20:38 Discharge Date: 11/17/21 Primary care physician: Valarie Noel MD Discharge provider: Cesar Herr DO Summary Hospital Course Discharge Diagnosis: Please see hospital course by problem list noted below: Hospital Course: Mr. 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 1. Symptomatic chronic anemia -Hg of 7 in the ER. Has responded to 2U PRBC transfusion appropriately and hg is now stable around 9.7 over the past 24 hours. He has had no bowel movements but reports dark stools on oral iron. -He became volume overloaded after the first unit and was written for IV lasix 20 mg after completion of the first unit transfused -no endoscopy is recommended at this time. -CKD likely contributory to anemia. 2. Acute on chronic kidney failure, chronic stage III. -renal ultrasound with high PVR but patient without symptoms during the course of admission. Anemia likely cause of his acute injury. Creatinine of >3 on admission, which continued to improve 3. Essential hypertension, chronic -continued home dose of amlodipine 5 mg daily 4. CAD, chronic -continued home dose of aspirin 81 mg po daily -Continued home dose of rosuvastatin 5 mg po daily 5. COPD with chronic respiratory failure with hypoxia. ?- remains on his normal amounts of supplemental o2 ?- no current indication of COPD exacerbation. Dispo: discharged home Time Spent with Patient Time spent: Greater than 30 minutes Exam Vital Signs (past 8 hours): - 11/17/21 03:45 11/17/21 04:27 11/17/21 04:30 Temperature 97.8 F Pulse Rate 67 Respiratory Rate 18 Blood Pressure 148/73 H Pulse Oximetry 96 96 96 Oxygen Delivery Method Nasal Cannula Oxygen Flow Rate 3 Narrative Exam Narrative: General:? Patient is well developed and well nourished, in no distress at this time. HEENT:? extraocular muscles intact, oral pharynx is clear and mucous membranes are moist. Neck: supple and symmetric, trachea is midline, no cervical adenopathy. Negative for JVD Chest:? Normal AP diameter and contour without kyphoscoliosis, no tachypnea, equal chest rise bilaterally. Lungs:? Diminished breath sounds at the bilateral lung bases but no obvious wheezing, rhonchi, or rales Cardio:?RRR with a 3/6 systolic crescendo decrescendo murmur Abdomen: S NT ND. Musculoskeletal:? Muscle strength and tone are equal within normal limits, no deformity. Extremities: No edema. Neuro:? Alert and orientated x3,? sensation to touch intact in all extremities, no gross deficits noted of cranial nerves. Psych:? Patient has a well-kept appearance, appropriate affect, mental status attitude thought context and judgment are appropriate for age. Objective Labs Result Diagrams: 11/17/21 06:28 11/17/21 06:28 Labs: Laboratory Results - last 24 hr 11/17/21 11/17/21 06:28 06:28 WBC 2.6 L RBC 2.97 L Hgb 9.8 L Hct 28.8 L MCV 97.2 MCH 32.9 MCHC 33.8 RDW 24.4 H Plt Count 172 Neut % (Auto) 32.9 L Lymph % (Auto) 39.3 Ida % (Auto) 25.6 H Eos % (Auto) 0.8 L Baso % (Auto) 1.4 Neut # (Auto) 800 L Lymph # (Auto) 1000 L Ida # (Auto) 700 Eos # (Auto) 0 Baso # (Auto) 0 RBC Morphology Not Reportable Anisocytosis 2+ H Sodium 139 Potassium 4.8 Chloride 106 Carbon Dioxide 27 BUN 57 H Creatinine 2.18 H Estimated GFR 29 L BUN/Creatinine Ratio 26.1 H Glucose 67 L Calcium 9.3 Magnesium 2.1 Total Bilirubin 0.4 Conjugated Bilirubin 0.0 Unconjugated Bilirubin 0.5 AST 30 ALT 18 Alkaline Phosphatase 101 Total Protein 7.1 Albumin 3.6 Globulin 3.5 Albumin/Globulin Ratio 1.0 [facility] [place] Medical History Adenocarcinoma of right lung, stage 1 (~05/10/20) Anemia Benign prostatic hyperplasia (01/29/12) BPH w urinary obs/LUTS Bradycardia Cellulitis Centrilobular emphysema (12/13/16) Cholesteatoma (09/10/12) Chronic kidney disease (CKD) stage G3a/A1, moderately decreased glomerular filtration rate (GFR) between 45-59 mL/min/1.73 square meter and albuminuria creatinine ratio less than 30 mg/g COPD (chronic obstructive pulmonary disease) DNR (do not resuscitate) Hemorrhagic cerebrovascular accident (CVA) (~2006) Hydronephrosis, left Hyperlipidemia Hypertension Lower urinary tract symptoms (LUTS) Lung cancer Macrocytic anemia (07/06/16) Mild alcohol abuse (03/26/15) Olecranon bursitis Peripheral vascular disease of foot (05/31/17) Pneumonia Primary adenocarcinoma of upper lobe of right lung Sinusitis Stenosis of left femoral artery Stroke Substance abuse Syncope Syncope and collapse (09/10/12) Tobacco use disorder, continuous (09/10/12) Transient cerebral ischemia (04/23/12) Traumatic compression fracture of seventh thoracic vertebra, sequela (10/09/16) Tubular adenoma Urinary retention Surgical History History of carpal tunnel repair (03/02/15) History of cataract removal with insertion of prosthetic lens (02/16/15) History of cataract removal with insertion of prosthetic lens (03/09/15) History of tonsillectomy Status post appendectomy Status post colonoscopy (10/06/09) Status post lobectomy of lung (~04/2020) Status post repair of hydrocele (05/22/11) Family History Brother Lung cancer Father Lung cancer Mother Migraines Social History marital status: number of children: 2 household members: spouse Smoking Status: Current every day smoker Tobacco: How many years used: 69 quit status: considering quitting alcohol intake: current caffeine: Yes Discharge Plan Discharge Plan Patient Disposition: Home Provider Discharge Comment: You were admitted to the hospital with a symptomatic anemia and acute injury. You improved with the blood transfusion and blood counts remained stable. It does not appear that your actively bleeding, I do recommend follow-up with her primary care provider for further evaluation of this anemia. Discharge orders & Medications Prescriptions: Continued fluticasone furoate-vilanterol 200-25 mcg/dose blister with device 1 inh INHALATION DAILY Qty: 60 6RF albuterol sulfate [Ventolin HFA] 90 mcg/actuation HFA aerosol inhaler See Rx Instructions .ROUTE .COMPLEX Qty: 18 2RF Dose Instruction: INHALE 2 PUFFS INTO THE LUNGS EVERY 4 HOURS NEEDED FOR SHORTNESS OF BREATH OR WHEEZING. ADMINISTER WITH SPACER Rx Instructions: INHALE 2 PUFFS INTO THE LUNGS EVERY 4 HOURS NEEDED FOR SHORTNESS OF BREATH OR WHEEZING. ADMINISTER WITH SPACER Incruse Ellipta 62.5 mcg/actuation blister with device See Rx Instructions .ROUTE .COMPLEX Qty: 30 3RF Dose Instruction: INHALE 1 PUFF INTO THE LUNGS EVERY DAY Rx Instructions: INHALE 1 PUFF INTO THE LUNGS EVERY DAY rosuvastatin 5 mg tablet See Rx Instructions .ROUTE .COMPLEX Qty: 90 0RF Dose Instruction: TAKE 1 TABLET BY MOUTH DAILY Rx Instructions: TAKE 1 TABLET BY MOUTH DAILY aspirin 81 mg tablet,chewable 81 mg PO DAILY 0RF omeprazole 20 mg capsule,delayed release(DR/EC) 20 mg PO DAILY 0RF multivitamin [Tab-A-Iqra] Tablet 1 tab PO DAILY Qty: 30 0RF thiamine HCl (vitamin B1) [Vitamin B-1] 100 mg Tablet 100 mg PO DAILY Qty: 30 0RF magnesium 250 mg Tablet 250 mg PO DAILY 0RF Breo Ellipta 200-25 mcg/dose Blister With Device 1 inh INHALATION DAILY 0RF lidocaine [Blue-Emu Lidocaine Patch] 4 % Adhesive Patch,Medicated 1 patch TOPICAL DAILY PRN (Reason: Pain (Scale Score 4-6)) 0RF furosemide [Lasix] 20 mg tablet 10 mg PO QAM Qty: 3 0RF levofloxacin 750 mg tablet 750 mg PO DAILY 7 Days Qty: 7 0RF Label Comments: Tomorrow is my last day amlodipine 5 mg tablet 5 mg PO BID 0RF diclofenac sodium 1 % gel 2 g topical QID PRN (Reason: Rash) 0RF Rx Instructions: apply to single elbow, wrist or hand; for hand includes palm/fingers/back of hand Follow up/Referrals: Valarie Noel MD [Primary Care Provider] - Diet/Activity/Treatments Diet: Diet as Tolerated Activity: As tolerated Discharge Data Primary Care Provider: Valarie Noel Quality VTE Deep Vein Thrombosis/Pulmonary Embolism Present on Admission: No
[2021-11-17] MEDS: AMLODIPINE 5 MG TABLET PO (09:12)
[2021-11-17] MEDS: THIAMINE 100 MG TABLET PO (09:12)
[2021-11-17] MEDS: SODIUM CHLORIDE 0.9% FLUSH 10 ML IV (09:12)
[2021-11-17] MEDS: ASPIRIN 81 MG CHEW TAB PO (09:12)
[2021-11-17 09:14] VITALS: O2SAT 94
[2021-11-17 10:00] VITALS: O2SAT 93
--- NOTE | 2021-11-17 10:31 | PC.NURSE ---
Pt discharged at 1030, escorted off floor in wheelchair, accompanied by spouse and hospital staff. IVs removed, discharge teaching completed including importance of follow up appointments and what to do if worsening symptoms occur. Questions and concerns answered. Pt left floor with all belongings.
== END 2021-11-17 10:35 | disposition home or self-care (01) | DRG 812 ==
LOC: ED 20:35 → AC 20:39
PROVIDERS: Emergency Medicine; Admitting Provider Nurse Practitioner Family; Emergency Provider Emergency Medicine; PCP Family Medicine; Referring Provider Emergency Medicine; Visit Provider Nurse Practitioner Family
DX: D64.9 Anemia, unspecified (principal); N17.9 Acute kidney failure, unspecified; J96.11 Chronic respiratory failure with hypoxia; I12.9 Hypertensive chronic kidney disease with stage 1 through stage 4 chronic kidney disease, or unspecified chronic kidney disease; N18.32 Chronic kidney disease, stage 3b; E87.79 Other fluid overload; I25.10 Atherosclerotic heart disease of native coronary artery without angina pectoris; J44.9 Chronic obstructive pulmonary disease, unspecified; E78.5 Hyperlipidemia, unspecified; F17.210 Nicotine dependence, cigarettes, uncomplicated; Z99.81 Dependence on supplemental oxygen; Z95.0 Presence of cardiac pacemaker; Z20.822 Contact with and (suspected) exposure to COVID-19; Z66 Do not resuscitate
CPT/HCPCS: 36415; 36430; 51798; 70450; 71045; 76770; 80048; 80053; 80061; 80076; 80320; 81001; 82550; 83690; 83735; 84484; 85014; 85018; 85025; 85610; 85730; 86850; 86900; 86901; 87635; 93005; 93010; 94760; 96374; 99285; C9803; P9016; C9113; J1940

== ENCOUNTER → 2021-11-22 13:01 | Outpatient (CLI) | payer MEDICARE, OTHER, SELFPAY ==
[2021-11-15 23:37] VITALS: BMI 25.7
[2021-11-22 14:21] LABS: BUN Creatinine Ratio 32.5 (6-22); Blood Urea Nitrogen 67 mg/dL (9-20); Calcium 9.1 mg/dL (8.4-10.2); Carbon Dioxide 29 mmol/L (22-32); Chloride 109 mmol/L (98-107); Estimated Glomerular Filt Rate 31 mL/min (>60); Glucose 79 mg/dL (80-110); HEMOLYSIS < 15 (0-50); Sodium 141 mmol/L (137-145)
[2021-11-22 14:25] LABS: Potassium 5.6 mmol/L (3.4-5.1)
== END ==
PROVIDERS: PCP Family Medicine; Referring Provider Internal Medicine Cardiovascular Disease; Visit Provider Internal Medicine Cardiovascular Disease
DX: E78.5 Hyperlipidemia, unspecified (principal)
CPT/HCPCS: 36415; 80048

== ENCOUNTER 2021-11-24 07:33 | Emergency (ER) | payer MEDICARE, OTHER, SELFPAY ==
[2021-11-15 23:37] VITALS: BMI 25.7
[2021-11-24 07:51] VITALS: BP 114/59; PULSE 63; RESP 18; TEMP 35.9; O2SAT 92; BMI 24.2
--- NOTE | 2021-11-24 07:54 | DI.RAD.S_ITS ---
PROCEDURE: XR KNEE LT 3V INDICATIONS: direct blow TECHNIQUE: 3 views of the knee were acquired. COMPARISON: None. FINDINGS: Bones: No fractures or dislocations. No suspicious bony lesions. Soft tissues: Small suprapatellar joint effusion. Atherosclerotic calcifications. IMPRESSION: No fracture. No osseous lesion. If symptoms and/or clinical suspicion for pathology persists, further assessment with repeat radiographs (7-10 days) or advanced imaging (e.g. CT, MRI or bone scan) should be considered. Small nonspecific joint effusion. Dictated by: Patricia Jones MD, PhD on 11/24/2021 at 8:36 Approved by: Patricia Jones MD, PhD on 11/24/2021 at 8:37
--- NOTE | 2021-11-24 07:55 | DI.RAD.S_ITS ---
PROCEDURE: XR TIBIA FIBULA LT 2V INDICATIONS: direct blow TECHNIQUE: 2 views of the tibia and fibula were acquired. COMPARISON: None. FINDINGS: Bones: No fractures or dislocations. No suspicious bony lesions. Soft tissues: No suspicious soft tissue calcifications or masses. IMPRESSION: No fracture. No acute osseous lesion. If symptoms and/or clinical suspicion for pathology persists, further assessment with repeat radiographs (7-10 days) or advanced imaging (e.g. CT, MRI or bone scan) should be considered. Dictated by: Patricia Jones MD, PhD on 11/24/2021 at 8:36 Approved by: Patricia Jones MD, PhD on 11/24/2021 at 8:36
--- NOTE | 2021-11-24 09:40 | ED_ITS ---
HPI - Extremity Injury (Lower) General Chief Complaint: Extremity Injury, Lower Stated Complaint: Fell yesterday and cant bear weight on left leg Time Seen by Provider: 11/24/21 09:16 Source: patient Mode of arrival: Ambulatory History of Present Illness HPI Narrative: Patient is a 85-year-old male multiple medical problems, history of lung cancer, COPD, coronary artery disease, iron deficiency anemia, presenting at had a after ground level fall tonight. He said he was caring a chainsaw which fortunately was not on, when he fell. He has lost his balance here and there. The states he has fallen while in the past. There head injury no loss consciousness. Complaining of left leg pain and swelling. Difficulty walking now. Related Data Home Medications Medication Instructions Recorded Confirmed fluticasone furoate 200 1 inh INHALATION DAILY 11/03/20 11/15/21 mcg-vilanterol 25 mcg/dose inhalation powder (Breo Ellipta) lidocaine 4 % topical patch 1 patch TOPICAL DAILY PRN 11/03/20 11/15/21 (Blue-Emu Lidocaine Patch) magnesium 250 mg tablet 250 mg PO DAILY 12/02/20 11/15/21 aspirin 81 mg chewable tablet 81 mg PO DAILY tab 06/17/21 11/15/21 omeprazole 20 mg capsule,delayed 20 mg PO DAILY cap 06/17/21 11/15/21 release amlodipine 5 mg tablet 5 mg PO BID 11/15/21 11/15/21 diclofenac sodium 1 % topical gel 2 g TOPICAL QID PRN 11/15/21 11/15/21 Previous Rx's Medication Instructions Recorded multivitamin (Tab-A-Iqra) 1 tab PO DAILY #30 tab 09/14/19 thiamine HCl (vitamin B1) 100 mg 100 mg PO DAILY #30 tab 09/14/19 tablet (Vitamin B-1) fluticasone furoate 200 1 inh INHALATION DAILY #60 each 03/16/21 mcg-vilanterol 25 mcg/dose inhalation powder albuterol sulfate 90 mcg/actuation See Rx Instructions .ROUTE 03/25/21 aerosol inhaler (Ventolin HFA) .COMPLEX #18 gram umeclidinium 62.5 mcg/actuation See Rx Instructions .ROUTE 04/14/21 blister powder for inhalation .COMPLEX #30 ea (Incruse Ellipta) rosuvastatin 5 mg tablet See Rx Instructions .ROUTE 08/26/21 .COMPLEX #90 tab furosemide 20 mg tablet (Lasix) 10 mg PO QAM #3 tab 10/27/21 hydrocodone 5 mg-acetaminophen 325 1 tab PO Q6H PRN #10 tab 11/24/21 mg tablet Allergies Allergy/AdvReac Type Severity Reaction Status Date / Time No Known Drug Allergies Allergy Unknown Verified 11/03/21 16:02 Review of Systems Review of Systems Narrative: GENERAL: Denies chills, fatigue, malaise, fever, sweats, travel HEENT: Denies sinus pain, ear pain, sore throat, difficulty swallowing, neck pain RESPIRATORY: Denies dyspnea, cough, wheezing, hemoptysis, sputum. CARDIOVASCULAR: Denies chest pain, palpitations, orthopnea, edema GASTROINTESTINAL: Denies nausea, vomiting, abdominal pain, diarrhea, constipation, melena. : Denies dysuria, frequency, incontinence, hematuria, urinary retention, flank pain. MUSCULOSKELETAL: See HPI SKIN: No rash, no erythema, no pruritus NEUROLOGIC: Denies weakness, dizziness, headache, numbness, change in speech, confusion PSYCHIATRIC: No concerning psychosocial issues. 12 point review of systems is negative except for those stated above and HPI Patient History Medical History Adenocarcinoma of right lung, stage 1 (~05/10/20) Anemia Benign prostatic hyperplasia (01/29/12) BPH w urinary obs/LUTS Bradycardia Cellulitis Centrilobular emphysema (12/13/16) Cholesteatoma (09/10/12) Chronic kidney disease (CKD) stage G3a/A1, moderately decreased glomerular filtration rate (GFR) between 45-59 mL/min/1.73 square meter and albuminuria creatinine ratio less than 30 mg/g COPD (chronic obstructive pulmonary disease) DNR (do not resuscitate) Hemorrhagic cerebrovascular accident (CVA) (~2006) Hydronephrosis, left Hyperlipidemia Hypertension Lower urinary tract symptoms (LUTS) Lung cancer Macrocytic anemia (07/06/16) Mild alcohol abuse (03/26/15) Olecranon bursitis Peripheral vascular disease of foot (05/31/17) Pneumonia Primary adenocarcinoma of upper lobe of right lung Sinusitis Stenosis of left femoral artery Stroke Substance abuse Syncope Syncope and collapse (09/10/12) Tobacco use disorder, continuous (09/10/12) Transient cerebral ischemia (04/23/12) Traumatic compression fracture of seventh thoracic vertebra, sequela (10/09/16) Tubular adenoma Urinary retention Surgical History History of carpal tunnel repair (03/02/15) History of cataract removal with insertion of prosthetic lens (02/16/15) History of cataract removal with insertion of prosthetic lens (03/09/15) History of tonsillectomy Status post appendectomy Status post colonoscopy (10/06/09) Status post lobectomy of lung (~04/2020) Status post repair of hydrocele (05/22/11) Family History Brother Lung cancer Father Lung cancer Mother Migraines Social History marital status: number of children: 2 household members: spouse Smoking Status: Current every day smoker Tobacco: How many years used: 69 quit status: considering quitting alcohol intake: current caffeine: Yes Smoking Status: Current every day smoker alcohol intake frequency: 3 or more drinks per day Substance Use Type: does not use Exam Initial Vital Signs Initial Vital Signs: Vital Signs Temperature 96.6 F L 11/24/21 07:51 Pulse Rate 63 11/24/21 07:51 Respiratory Rate 18 11/24/21 07:51 Blood Pressure 114/59 L 11/24/21 07:51 Pulse Oximetry 92 11/24/21 07:51 GENERAL: Alert gently cantankerous 85-year-old male and in no acute distress. HEENT: Head atraumatic,EOMI, pupils reactive, face symmetric, moist mucous membranes CARDIOVASCULAR: Regular rate and rhythm without murmurs, rubs or gallops. RESPIRATORY: Breath sounds equal bilaterally, no wheezes rales or rhonchi. EXTREMITIES: Normal range of motion, no clubbing or edema. Neurovascularly intact Left leg swollen abrasion noted left knee distal pedal pulse intact. No hip or pelvis pain. Distal pedal pulses felt. Foot is quite swollen and ankle as well. Pain with flexion of the knee that is knee effusion noted. NEUROLOGICAL: Alert and oriented x4. SKIN: Warm, dry, no laceration, no petechiae, no rashes or lesions. Course Orders Ordered: Discontinued Medications Hydrocodone Bitart/Acetaminophen (Hydrocodone/Acet 5/325 Tablet) 1 tab PO NOW ONE Stop: 11/24/21 09:49 Last Admin: 11/24/21 10:21 Dose: 1 tab Documented by: JADEN Vital Signs Vital signs: Vital Signs - 8 hr 11/24/21 07:51 Temperature 96.6 F L Pulse Rate 63 Respiratory Rate 18 Blood Pressure 114/59 L Pulse Oximetry 92 MDM - Extremity Injury (Lower) Imaging Data Extremity x-ray #1: Radiologist's Impression: Signed Patient: Pola Chambers MR#: [id number] : 1935 Acct:[id number] Age/Sex: 85 / M Date of Service: 11/24/21 Loc: ED Accession Number: [id number] ?? Procedure: XR knee LT 3V Ordering Provider: Tamiko Camara D.O. PROCEDURE:? XR KNEE LT 3V ? INDICATIONS:? direct blow ? TECHNIQUE:? 3 views of the knee were acquired.? ? COMPARISON:? None. ? FINDINGS:? ? Bones:? No fractures or dislocations.? No suspicious bony lesions.? ? Soft tissues:? Small suprapatellar joint effusion.? Atherosclerotic calcifications. ? ? IMPRESSION:? ? No fracture. No osseous lesion. If symptoms and/or clinical suspicion for pathology persists, further assessment with repeat radiographs (7-10 days) or advanced imaging (e.g. CT, MRI or bone scan) should be considered. ? ? Small nonspecific joint effusion.? ? Dictated by: Patricia Jones MD, PhD on 11/24/2021 at 8:36 ? ? Approved by: Patricia Jones MD, PhD on 11/24/2021 at 8:37 ? Extremity x-ray #2: Radiologist's Impression: VARSHA Mehta [id number] XRay Report Signed Patient: Pola Chambers MR#: [id number] : 1935 Acct:[id number] Age/Sex: 85 / M Date of Service: 11/24/21 Loc: ED Accession Number: [id number] ?? Procedure: XR tibia fibula LT 2V Ordering Provider: Tamiko Camara D.O. PROCEDURE:? XR TIBIA FIBULA LT 2V ? INDICATIONS:? direct blow ? TECHNIQUE:? 2 views of the tibia and fibula were acquired.? ? COMPARISON:? None. ? FINDINGS:? ? Bones:? No fractures or dislocations.? No suspicious bony lesions.? ? Soft tissues:? No suspicious soft tissue calcifications or masses.? ? IMPRESSION:? No fracture. No acute osseous lesion. If symptoms and/or clinical suspicion for pathology persists, further assessment with repeat radiographs (7-10 days) or advanced imaging (e.g. CT, MRI or bone scan) should be considered. ? ? Dictated by: Patricia Jones MD, PhD on 11/24/2021 at 8:36 ? ? Approved by: Patricia Jones MD, PhD on 11/24/2021 at 8:36 ? Extremity x-ray #3: Radiologist's Impression: Signed Patient: Pola Chambers MR#: [id number] : 1935 Acct:[id number] Age/Sex: 85 / M Date of Service: 11/24/21 Loc: ED Accession Number: [id number] ?? Procedure: XR ankle LT min 3V Ordering Provider: Tamiko Camara D.O. PROCEDURE:? XR ANKLE LT MIN 3V ? INDICATIONS:? fall swelling ? TECHNIQUE:? Three views of the ankle were acquired.? ? COMPARISON:? None. ? FINDINGS:? ? Bones:? No acute fractures or dislocations.? Ankle mortise is normally aligned.? No suspicious bony lesions.? The metatarsal bases and midfoot structures are excluded from the field of view of this exam. ? Soft tissues:? Soft tissue edema is seen surrounding the ankle.? The Achilles tendon stripe is obscured by a structure outside of the patient on lateral view. ? ? IMPRESSION:? No acute osseous abnormality.? Specific soft tissue edema surrounding the ankle.? If clinical suspicion and/or symptoms persist, additional imaging with repeat plain films, or advanced imaging (e.g. CT, MRI) may be helpful for further assessment. ? ? ? Dictated by: Jace Abraham M.D. on 11/24/2021 at 10:15 ? ? Approved by: Jace Abraham M.D. on 11/24/2021 at 10:19 ? MDM Narrative Medical decision making narrative: Patient had mechanical ground level fall. He does have swelling of his left knee. He is able to ambulate I encouraged him to use a walker. He is given [place] for pain. He has multiple chronic currently stable medical conditions. Discharge Plan Departure Patient Disposition: Home Clinical Impression: Strain of left knee Instructions: DI for Knee Sprain Activity Restrictions/Additional Instructions: *You have been diagnosed with left knee sprain *What to do: YOU NEED TO REST. DO NOT USE THE CHAINSAW TODAY. Elevate leg ice. Use walker as needed for you to follow up anymore. Recommend getting a knee brace from [employer] to help support your knee Apply antibiotic ointment to left knee abrasion 1 to 2 times a day. Keep the area clean and dry with soap and water. *Continue to take medications as directed [place] 1 tablet every 6 hours if needed for [id number] pain *Follow up with your primary care provider in 2-3 days or call [phone] *Return to ER if you should have increasing pain swelling redness or any new, worsening or concerning symptoms CONTROLLED SUBSTANCE DISCHARGE (Narcotoic/benzodiazepine/Flexeril/Phenergan) 1. You have been prescribed narcotic medications, it does have acetaminophen/Tylenol/paracetamol in it, DO NOT TAKE MORE THAN 4,00mg in 24 hours of Tylenol. TRAMADOL DOES NOT CONTAIN TYLENOL 2. Please understand that we cannot provide further refills of narcotics, benzodiazepines or controlled substances through the ED and her pain management will need to be through your provider. 3. While on these medications you cannot drive or operate heavy machinery. 4. You cannot sign legal documents or perform any duties such as this. 5. As long as you're taking opiate pain medications he should also be taking a stool softener such as Colace, Dulcolax, MiraLAX or prune juice, to help avoid constipation. Prescriptions: New hydrocodone-acetaminophen 5-325 mg tablet 1 tab PO Q6H PRN (Reason: pain) Qty: 10 0RF No Action fluticasone furoate-vilanterol 200-25 mcg/dose blister with device 1 inh INHALATION DAILY Qty: 60 6RF albuterol sulfate [Ventolin HFA] 90 mcg/actuation HFA aerosol inhaler See Rx Instructions .ROUTE .COMPLEX Qty: 18 2RF Dose Instruction: INHALE 2 PUFFS INTO THE LUNGS EVERY 4 HOURS NEEDED FOR SHORTNESS OF BREATH OR WHEEZING. ADMINISTER WITH SPACER Rx Instructions: INHALE 2 PUFFS INTO THE LUNGS EVERY 4 HOURS NEEDED FOR SHORTNESS OF BREATH OR WHEEZING. ADMINISTER WITH SPACER Incruse Ellipta 62.5 mcg/actuation blister with device See Rx Instructions .ROUTE .COMPLEX Qty: 30 3RF Dose Instruction: INHALE 1 PUFF INTO THE LUNGS EVERY DAY Rx Instructions: INHALE 1 PUFF INTO THE LUNGS EVERY DAY rosuvastatin 5 mg tablet See Rx Instructions .ROUTE .COMPLEX Qty: 90 0RF Dose Instruction: TAKE 1 TABLET BY MOUTH DAILY Rx Instructions: TAKE 1 TABLET BY MOUTH DAILY aspirin 81 mg tablet,chewable 81 mg PO DAILY 0RF omeprazole 20 mg capsule,delayed release(DR/EC) 20 mg PO DAILY 0RF multivitamin [Tab-A-Iqra] Tablet 1 tab PO DAILY Qty: 30 0RF thiamine HCl (vitamin B1) [Vitamin B-1] 100 mg Tablet 100 mg PO DAILY Qty: 30 0RF magnesium 250 mg Tablet 250 mg PO DAILY 0RF Breo Ellipta 200-25 mcg/dose Blister With Device 1 inh INHALATION DAILY 0RF lidocaine [Blue-Emu Lidocaine Patch] 4 % Adhesive Patch,Medicated 1 patch TOPICAL DAILY PRN (Reason: Pain (Scale Score 4-6)) 0RF furosemide [Lasix] 20 mg tablet 10 mg PO QAM Qty: 3 0RF amlodipine 5 mg tablet 5 mg PO BID 0RF diclofenac sodium 1 % gel 2 g topical QID PRN (Reason: Rash) 0RF Rx Instructions: apply to single elbow, wrist or hand; for hand includes palm/fingers/back of hand Referrals: Valarie Noel MD [Primary Care Provider] -
--- NOTE | 2021-11-24 09:48 | DI.RAD.S_ITS ---
PROCEDURE: XR ANKLE LT MIN 3V INDICATIONS: fall swelling TECHNIQUE: Three views of the ankle were acquired. COMPARISON: None. FINDINGS: Bones: No acute fractures or dislocations. Ankle mortise is normally aligned. No suspicious bony lesions. The metatarsal bases and midfoot structures are excluded from the field of view of this exam. Soft tissues: Soft tissue edema is seen surrounding the ankle. The Achilles tendon stripe is obscured by a structure outside of the patient on lateral view. IMPRESSION: No acute osseous abnormality. Specific soft tissue edema surrounding the ankle. If clinical suspicion and/or symptoms persist, additional imaging with repeat plain films, or advanced imaging (e.g. CT, MRI) may be helpful for further assessment. Dictated by: Jace Abraham M.D. on 11/24/2021 at 10:15 Approved by: Jace Abraham M.D. on 11/24/2021 at 10:19
[2021-11-24] MEDS: HYDROCODONE/ACET 5/325 TABLET 1 TAB PO (10:21)
[2021-11-24 10:59] VITALS: BP 133/61; PULSE 60; RESP 16; TEMP 35.8; O2SAT 92
== END 2021-11-24 11:00 | disposition home or self-care (01) ==
PROVIDERS: Emergency Provider Emergency Medicine; PCP Family Medicine
DX: S83.92XA Sprain of unspecified site of left knee, initial encounter (principal); W22.8XXA Striking against or struck by other objects, initial encounter
CPT/HCPCS: 73562; 73590; 73610; 99283